=== PATIENT | female | born 1945 | race Caucasian/White ===

== ENCOUNTER → 2016-08-26 | Outpatient (CLI) | payer MEDICARE, OTHER ==
[~2016-08-26] MED LIST: ALN10T; ASP325T PO; AZIT250T PO; BREO INH; CEFD300C3; CYAN100053 IM; LEVO500T2 PO; METO25TA2 PO; MONT10TA24; MTP25TSR PO; PRD10T; PRD20T PO; RT-ALBUINH IH; levaquin PO
--- OUTSIDE RECORDS SUMMARY | 2016-08-26 08:14 | XMS REPORT | Continuity of Care Document ---
Author Author [facility] Organization [facility] Address Unknown Phone Unavailable Care Team Providers Care Planer Tailer Name Role Phone LATANYA ALFREDO MD PCP Insurance Providers Payer Name Policy Number Subscriber Name Relationship [employer] [id number] Yun Booker 18 Self / Same As Patient Enter Insurance Name [id number] Yun Booker 18 Self / Same As Patient Advance Directives Directive Response Recorded Date/Time Advance Directives No 06/29/16 9:05am Health Care Power of Laser Cutter Yes 06/29/16 9:05am Organ Donor No 06/29/16 9:05am Resuscitation Status Full Code 06/29/16 9:05am Chief Complaint and Reason for Visit Chief Complaint Cough/Cold/Flu Symptoms Reason for Visit fever severe COPD with fibrosis and bullae Problems No problem information available. Medications Current Home Medications Medication Dose Units Route Directions Days/Qty Instructions Start Date Aspirin 325 Mg 325 Mg Oral Bedtime 03/23/12 [Breo] 1 Puff Inhalation Daily as needed for Shortness Of Breath Cyanocobalamin (Vitamin B 12 Injecting) 1,000 Mcg/Ml 1,000 Mg Intramusc Monthly as needed for Weakness 04/11/14 Albuterol Sulfate 18 Gm 18 Gm Inhalation Daily 04/05/15 Azithromycin 250 Mg 250 Mg Oral As Directed 6 TAKE 2 TABLETS TODAY, THEN TAKE 1 TABLET DAILY FOR 4 MORE DAYS 06/29/16 Past Home Medications Medication Directions Ordered Status Alendronate Sodium 10 Mg Tab, 02/04/09 Discontinued Metoprolol Succinate 25 Mg Tab.sr.24h, 1 Each Oral Daily 03/23/12 Discontinued Metoprolol Tartrate 25 Mg Tablet, 12.5 Mg Oral Twice A Day 04/18/14 Discontinued [Levaquin] , 500 Mg Oral Daily 04/18/14 Discontinued Social History Social History Problem Response Recorded Date/Time Alcohol Use Regular Use 04/15/2014 6:26pm Recreational Drug Use No 04/15/2014 6:26pm Recent Foreign Travel No 04/15/2014 6:26pm Recent Infectious Disease Exposure No 04/15/2014 6:26pm Hospitalization with Isolation Denies 06/29/2016 9:05am Sexually Transmitted Disease No 06/29/2016 9:05am HIV/AIDS No 06/29/2016 9:05am Smoking Status Former Smoker 06/29/2016 9:05am Do you dip or chew tobacco? No 04/05/2015 7:51am Type Used Cigarettes 06/29/2016 9:05am Recent Hopitalizations No 06/29/2016 9:05am Sexually Transmitted Disease No 06/29/2016 9:05am Hospitalization with Isolation Denies 06/29/2016 9:05am Query Response Start Date Stop Date Smoking Status Former Smoker 04/05/2014 Hospital Discharge Instructions No hospital discharge instructions. Plan of Care Discharge Date 06/29/16 10:01am Disposition 01 HOME, SELF-CARE Condition at Discharge Stable/Unchanged Instructions/Education Provided Chronic Obstructive Pulmonary Disease (COPD), Including Emphysema Prescriptions See Medication Section Referrals LATANYA ALFREDO MD - Primary Care Physician Functional Status No functional status results. Allergies, Adverse Reactions, Alerts No known allergies. Immunizations No immunization records. Vital Signs Acute Vital Signs Vital Response Date/Time Temperature (Fahrenheit) 100.0 degrees F (97.6 - 99.5) 06/29/2016 10:00am Temperature (Calculated Celsius) 37.37464 degrees C (36.4 - 37.5) 06/29/2016 10:00am Temperature Source Tympanic 06/29/2016 10:00am Pulse Rate (adult) 116 bpm (60 - 90) 06/29/2016 10:00am Respiratory Rate 20 bpm (12 - 24) 06/29/2016 10:00am O2 Sat by Pulse Oximetry 95 % (88 - 100) 06/29/2016 10:00am Blood Pressure 111/71 mm Hg 06/29/2016 10:00am Blood Pressure Mean 84 mm Hg 06/29/2016 9:05am Height (Feet) 5 feet 06/29/2016 9:05am Height (Inches) 2.00 inches 06/29/2016 9:05am Height (Calculated Centimeters) 157.467593 cm 06/29/2016 9:05am Weight (Pounds) 98 pounds 06/29/2016 9:05am Weight (Ounces) 3.0 oz 06/29/2016 9:05am Weight (Calculated Grams) 65453.101 gm 06/29/2016 9:05am Weight (Calculated Kilograms) 44.905605 kilograms 06/29/2016 9:05am Calculated BMI 17.92 06/29/2016 9:05am Capillary Refill Capillary Refill Less Than 3 Seconds 06/29/2016 9:05am Results Laboratory Results Test Name Result Units Flags Reference Collection Date/Time Result Date/ Time Comments White Blood Count 13.2 10^3/uL H 4.3-11.0 06/29/2016 9:16am 06/29/2016 9: 33am Red Blood Count 4.18 10^6/uL L 4.35-5.85 06/29/2016 9:16am 06/29/2016 9: 33am Hemoglobin 13.9 G/DL 11.5-16.0 06/29/2016 9:16am 06/29/2016 9:33am Hematocrit 42 % 35-52 06/29/2016 9:16am 06/29/2016 9:33am Mean Corpuscular Volume 101 FL H 80-99 06/29/2016 9:16am 06/29/2016 9: 33am Mean Corpuscular Hemoglobin 33 PG 25-34 06/29/2016 9:16am 06/29/2016 9: 33am Mean Corpuscular Hemoglobin Concent 33 G/DL 32-36 06/29/2016 9:16am 07/2016 9:33am Red Cell Distribution Width 13.1 % 10.0-14.5 06/29/2016 9:16am 2015 9:33am Platelet Count 229 10^3/uL 130-400 06/29/2016 9:16am 06/29/2016 9:33am Mean Platelet Volume 9.5 FL 7.4-10.4 06/29/2016 9:16am 06/29/2016 9: 33am Neutrophils (%) (Auto) 89 % H 42-75 06/29/2016 9:16am 06/29/2016 9:33am Lymphocytes (%) (Auto) 3 % L 12-44 06/29/2016 9:16am 06/29/2016 9:33am Monocytes (%) (Auto) 8 % 0-12 06/29/2016 9:1606/29/2016 9:33am Eosinophils (%) (Auto) 0 % 0-10 06/29/2016 9:16am 06/29/2016 9:33am Basophils (%) (Auto) 0 % 0-10 06/29/2016 9:1606/29/2016 9:33am Neutrophils # (Auto) 11.7 X 10^3 H 1.8-7.8 06/29/2016 9:16am 06/29/2016 9 :33am Lymphocytes # (Auto) 0.4 X 10^3 L 1.0-4.0 06/29/2016 9:1606/29/2016 9: 33am Monocytes # (Auto) 1.0 X 10^3 0.0-1.0 06/29/2016 9:16am 06/29/2016 9: 33am Eosinophils # (Auto) 0.0 10^3/uL 0.0-0.3 06/29/2016 9:16am 06/29/2016 9 :33am Basophils # (Auto) 0.0 10^3/uL 0.0-0.1 06/29/2016 9:16am 06/29/2016 9: 33am Neutrophils % (Manual) 85 % 06/29/2016 9:16am 06/29/2016 9:43am Band Neutrophils 7 % 06/29/2016 9:16am 06/29/2016 9:43am Lymphocytes % (Manual) 8 % 06/29/2016 9:16am 06/29/2016 9:43am Monocytes % (Manual) 3 % 06/29/2016 9:16am 06/29/2016 9:43am Blood Morphology Comment NORMAL 06/29/2016 9:16am 06/29/2016 9: 43am Toxic Granulation 1+ 06/29/2016 9:16am 06/29/2016 9:43am Procedures No known history of procedures. Encounters Encounter Location Arrival/Admit Date Discharge/Depart Date Attending Provider Departed Emergency Room [facility] 06/29/16 8:52am 06/29 10:01am FRAN CH MD Recent Diagnosis
--- NOTE | 2016-08-26 09:02 | Diagnostic Imaging Report ---
PROCEDURE: CT chest without contrast. TECHNIQUE: Multiple contiguous axial images were obtained through the chest without the use of intravenous contrast. INDICATION: COPD, tobacco use and lung infection. Comparison is made study of 07/08/2016. FINDINGS: Post therapeutic changes are again noted in the left hemithorax with significant volume loss in left upper lobe resulting in upward retraction of the left pulmonary hilum. Pleural parenchymal densities in the left apex are similar to the previous study. Diffuse centrilobular emphysematous background is again seen throughout both lungs. Right apical pleural parenchymal densities are stable as well. Overall, there has been a decrease in the interstitial densities throughout the lungs. Subpleural nodular foci in the lung bases have not changed. There is no evidence of new mass or infiltrate. Unenhanced images reveal no evidence of pathologic thoracic adenopathy. Upper abdominal sections are also stable without evidence of new abnormality. IMPRESSION: Extensive COPD with overall improvement in probable interstitial edema and/or pneumonitis noted on previous study. Pleural-parenchymal densities have not significantly changed and likely represents scarring. No acute abnormality is identified on the noncontrasted study. Dictated by: Dictated on workstation # [id number]
== END ==
LOC: RAD 08:11
PROVIDERS: ATTEND Nurse Practitioner Family
DX: J44.1 Chronic obstructive pulmonary disease with (acute) exacerbation (principal); J44.0 Chronic obstructive pulmonary disease with (acute) lower respiratory infection; J18.9 Pneumonia, unspecified organism; R91.1 Solitary pulmonary nodule; R09.02 Hypoxemia; Z72.0 Tobacco use
CPT/HCPCS: 71250

== ENCOUNTER → 2017-04-11 | Outpatient (CLI) | payer MEDICARE, OTHER ==
--- NOTE | 2017-04-11 18:04 | Diagnostic Imaging Report ---
INDICATION: Shortness of breath. TECHNIQUE: PA and lateral chest obtained at 1136 a.m. and is compared to 07/08/2016. FINDINGS: There is extensive chronic left apical pleural thickening and fibrotic change. There is extensive parenchymal scarring and fibrotic change in the right apex. There is superior retraction of the shad on both sides. There are chronic-appearing increased interstitial markings bilaterally. The alveolar consolidation in the right lower lobe seen on the previous study of 07/08/2016 has resolved. There is no new infiltrate or pleural fluid. IMPRESSION: Extensive chronic changes in the upper lung field on both sides as well as extensive chronic left apical pleural thickening. The alveolar infiltrate in the right lung base has resolved compared to the prior study. There are chronic interstitial changes. There is no definite new finding. Dictated by: Dictated on workstation # [id number]
== END ==
LOC: RAD 11:07
PROVIDERS: ATTEND Nurse Practitioner Family
DX: J84.9 Interstitial pulmonary disease, unspecified (principal); R09.02 Hypoxemia; Z72.0 Tobacco use
CPT/HCPCS: 71020

== ENCOUNTER → 2017-08-04 | Outpatient (CLI) | payer MEDICARE, OTHER ==
--- NOTE | 2017-08-04 11:03 | Diagnostic Imaging Report ---
PROCEDURE: CT chest without contrast. TECHNIQUE: Multiple contiguous axial images were obtained through the chest without the use of intravenous contrast. INDICATION: Shortness of breath. COPD. COMPARISON: 08/26/2016. FINDINGS: There is extensive pleural parenchymal scarring seen in the left upper lobe and to lesser extent similar finding in the right upper lobe with traction bronchiectasis seen. There is background emphysema and pulmonary hyperinflation. Significant elevation of the shad particularly on the left side secondary to the fibrotic changes and loss of volume as mentioned above is seen. Some of these changes are postsurgical. There is no new consolidation, mass, or suspicious nodule developed from the previous exam. Stable small nodular densities are likely related to scarring in the left lung base. There is no pleural effusion. No pericardial effusion. The heart size is normal. The thoracic aorta is normal in caliber. The upper mediastinum is shifted to the left side. There is a nonspecific borderline-sized infracarinal lymph node measuring 1 cm in size. It appears slightly more prominent compared to the previous study. There is also a precarinal lymph node measuring 1 cm. No axillary lymphadenopathy is seen. Sections in the upper abdomen demonstrate no definite abnormality. There is mild right scoliotic curvature of the spine. IMPRESSION: Advanced emphysema. Postsurgical changes in the left upper lobe and significant pleuroparenchymal scarring in the lung apices more on the left side. No acute process. Dictated by: Dictated on workstation # [id number]
== END ==
LOC: RAD 09:15
PROVIDERS: ATTEND Nurse Practitioner Family
DX: J43.9 Emphysema, unspecified (principal); Z98.890 Other specified postprocedural states
CPT/HCPCS: 71250

== ENCOUNTER → 2018-06-24 | Outpatient (CLI) | payer MEDICARE, OTHER ==
[~2018-06-24] MED LIST changes: +IOHEXOL 350 MG/ML 100 ML (OMNIPAQUE 350) VIAL IV ONE; +NS 250 ML (IVPB) BAG IV ONE; +RECEIVED CONTRAST (Hold Metformin) IV SCH
[2018-06-24 12:42] LABS: BUN/CREATININE RATIO 14; CALCIUM 9.7 MG/DL (8.5-10.1); CARBON DIOXIDE 23 MMOL/L (21-32); CHLORIDE 102 MMOL/L (98-107); CREATININE SERUM 0.71 MG/DL (0.60-1.30); GFR ESTIMATED > 60; GLUCOSE 106 MG/DL (70-105); POTASSIUM 3.9 MMOL/L (3.6-5.0); SODIUM 137 MMOL/L (135-145)
--- NOTE | 2018-06-24 13:46 | Diagnostic Imaging Report ---
PROCEDURE: CT angiography of the head with and without contrast. TECHNIQUE: Noncontrast CT of the head was obtained. Subsequently, after intravenous administration of contrast, thin section axial CT angiography of the head was performed. Source data was reformatted into multiple MIP reformats. Delayed postcontrast acquisition of the head was also acquired. INDICATION: Headache for three days at the top of the head. FINDINGS: Precontrast head CT does show the ventricles and sulci to be somewhat prominent consistent with the patient's age. There is moderate periventricular hypodensity noted consistent with chronic microvascular ischemia. There is some low density on the left side in the region of the internal capsule. 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 No sulcal effacement, midline shift or hemorrhage is detected. Delayed postcontrast imaging to the brain is without abnormal enhancing lesion. CT angiographic portion of the study does show some calcified plaque in the carotid siphons bilaterally. The anterior and middle cerebral arteries are widely patent. No stenosis or thromboemboli are seen. No definite aneurysm is seen. There is a hypoplastic right posterior cerebral with patent PCOM, a normal variant. IMPRESSION: 1. Unremarkable CT angiogram of the brain. No aneurysm, stenosis or thromboemboli are seen. 2. Changes of chronic microvascular ischemia. 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 No acute feature is seen. Dictated by: Dictated on workstation # [id number]
== END ==
LOC: RAD 11:53
PROVIDERS: ATTEND Family Medicine
DX: I67.82 Cerebral ischemia (principal)
CPT/HCPCS: 36415; 70496; 80048

== ENCOUNTER → 2018-07-28 | Outpatient (CLI) | payer MEDICARE, OTHER ==
[~2018-07-28] MED LIST changes: -IOHEXOL 350 MG/ML 100 ML (OMNIPAQUE 350) VIAL IV ONE; -NS 250 ML (IVPB) BAG IV ONE; -RECEIVED CONTRAST (Hold Metformin) IV SCH
--- NOTE | 2018-07-28 10:32 | Diagnostic Imaging Report ---
PROCEDURE: CT chest without contrast. TECHNIQUE: Multiple contiguous axial images were obtained through the chest without the use of intravenous contrast. INDICATION: COPD FINDINGS: The previous CT of the chest exam performed 08/04/2017 noted advanced emphysematous changes involving both lungs as well as postsurgical changes in the left upper lobe. Those findings are again evident on this study and do not seem to have changed significantly. There is no sign of failure, pneumonia or pleural effusion to indicate an acute abnormality. There is no parenchymal lung mass noted to indicate neoplastic disease. The heart is stable in size. There are no coronary artery calcifications noted. The aorta is not aneurysmally dilated. There is no obvious mediastinal or hilar adenopathy. The thyroid gland is generally unremarkable. There is no obvious breast mass. The sections through the upper abdomen fail to show any sign of an acute abnormality. The bone windows are unremarkable for a fracture or for a destructive lesion. IMPRESSION: The severe chronic pulmonary disease and the postsurgical changes involving the left upper lung seen on the previous study are again evident and stable in appearance. There is no acute cardiopulmonary abnormality noted. Dictated by: Dictated on workstation # [id number]
== END ==
LOC: RAD 09:30
PROVIDERS: ATTEND Nurse Practitioner Family
DX: J44.1 Chronic obstructive pulmonary disease with (acute) exacerbation (principal); Z72.0 Tobacco use; Z98.890 Other specified postprocedural states
CPT/HCPCS: 71250

== ENCOUNTER 2018-09-16 08:10 | Emergency (ER) | payer MEDICARE, OTHER ==
[~2018-09-16] VITALS: Ht 157.5 cm; Wt 48.5 kg
[2018-09-16] MEDS ORDERED: fentaNYL INJECTION 100 MCG/2 ML AMP IVP ONE (08:30)
[2018-09-16 08:45] LABS: BASOPHILS # (AUTO) 0.1 10^3/uL (0.0-0.1); BASOPHILS % (AUTO) 1 % (0-10); EOSINOPHILS # (AUTO) 0.2 10^3/uL (0.0-0.3); EOSINOPHILS % (AUTO) 3 % (0-10); HEMATOCRIT 48 % (35-52); HEMOGLOBIN 15.9 G/DL (11.5-16.0); LYMPHOCYTES % (AUTO) 17 % (12-44); MEAN CORPUSCULAR HEMOGLOBIN 34 PG (25-34); MEAN CORPUSCULAR HGB CONC 33 G/DL (32-36); MEAN CORPUSCULAR VOLUME 102 FL (80-99); MEAN PLATELET VOLUME 9.5 FL (7.4-10.4); MONOCYTES # (AUTO) 0.6 X 10^3 (0.0-1.0); MONOCYTES % (AUTO) 10 % (0-12); NEUTROPHILS # (AUTO) 4.2 X 10^3 (1.8-7.8); NEUTROPHILS % (AUTO) 70 % (42-75); PLATELET COUNT 260 10^3/uL (130-400); RED CELL DISTRIBUTION WIDTH 14.1 % (10.0-14.5)
--- NOTE | 2018-09-16 09:05 | Diagnostic Imaging Report ---
INDICATION: Shortness of breath. COMPARISON: Comparison is made with the prior examination dated 04/16/2018. FINDINGS: There is unchanged scarring of the lung apices bilaterally left greater than right. Heart size is normal. There is some venous congestion. There is no pleural effusion. There is no pneumothorax. IMPRESSION: Unchanged biapical pleural thickening or scarring left greater than right with some moderate central pulmonary venous congestion. Dictated by: Dictated on workstation # [id number]
[2018-09-16 09:07] LABS: ALANINE AMINOTRANSFERASE 41 U/L (0-55); ALBUMIN 4.4 GM/DL (3.2-4.5); ALKALINE PHOSPHATASE 102 U/L (40-136); BILIRUBIN,TOTAL 0.7 MG/DL (0.1-1.0); BUN/CREATININE RATIO 11; CALCIUM 9.7 MG/DL (8.5-10.1); CARBON DIOXIDE 22 MMOL/L (21-32); CHLORIDE 102 MMOL/L (98-107); CREATININE SERUM 0.75 MG/DL (0.60-1.30); GFR ESTIMATED > 60; GLUCOSE 96 MG/DL (70-105); POTASSIUM 4.3 MMOL/L (3.6-5.0); SODIUM 138 MMOL/L (135-145)
--- NOTE | 2018-09-16 09:18 | NUR ---
PT STATES SHE FEELS MUCH BETTER. OXYGEN REMOVED FOR TRIAL.
--- OUTSIDE RECORDS SUMMARY | 2018-09-16 09:21 | XMS REPORT ---
Author Author YANET RUSSO [facility] Address [address] [place] [address] Care Team Providers Care Business Services Administrator Name Role Phone RUSSOJACQUIYANET Unavailable PROBLEMS Type Condition ICD9-CM Code [id number] Code Onset Dates Condition Status SNOMED Code Problem PPV23 (PNEUMOVAX) DX V03.82 Active 65856091 Problem Need for prophylactic vaccination and inoculation, Influenza V04.81 Active 641096904 ALLERGIES No Known Allergies ENCOUNTERS Encounter Location Date Diagnosis [facility] IN [facility] [address] [address] Jul, Vaginal itching L29.8 and Vaginal yeast infection B37.3 [facility] [address] [address] Jun, Dysuria R30.0 and Acute cystitis with hematuria N30.01 [place] [address] [address] Apr, Encounter for immunization Z23 [facility] [address] [address] Feb, Dysuria R30.0 and Acute cystitis with hematuria N30.01 [facility] [address] [address] May, Encounter for immunization Z23 [facility] [address] [address] May, [facility] [address] [address] May, [place] [address] [address] Oct, [facility] [address] [facility] [id number] [address] Oct, [facility] [address] [facility] [id number] [address] May, [facility] [address] [facility] [id number] [address] May, IMMUNIZATIONS No Known Immunizations SOCIAL HISTORY Never Assessed REASON FOR VISIT slight dysuria since last noc. pt also complaining of upper body pain...says she gets like this when she gets a UTI. [email or web address] PLAN OF CARE Activity Details Follow Up prn Reason: VITAL SIGNS Height 62 in 2017-06-23 Weight 103.4 lbs 2017-06-23 Temperature 97.8 degrees Fahrenheit 2017-06-23 Heart Rate 88 bpm 2017-06-23 Respiratory Rate 20 2017-06-23 BMI 18.91 kg/m2 2017-06-23 Blood pressure systolic 112 mmHg 2017-06-23 Blood pressure diastolic 70 mmHg 2017-06-23 MEDICATIONS Medication Instructions Dosage Frequency Start Date End Date Duration Status Breo Ellipta 100-25 MCG/INH Inhalation Once a day 1 puff 24h Active Macrobid 100 MG Orally every 12 hrs 1 capsule with food 12h Jun, Jun, 7 day(s) Active Incruse Ellipta 62.5 MCG/INH Inhalation Once a day 1 puff 24h Active RESULTS No Results PROCEDURES Procedure Date Ordered Result Body Site URINALYSIS, AUTO, W/O SCOPE Jun 23, 2017 LAB NOT BILLED BY [facility] Jun 23, 2017 [facility] VISIT ESTABLISHED PATIENT Jun 23, 2017 INSTRUCTIONS MEDICATIONS ADMINISTERED No Known Medications MEDICAL (GENERAL) HISTORY Type Description Date Surgical History Bowel Surgical History Lobectomy
--- OUTSIDE RECORDS SUMMARY | 2018-09-16 09:21 | XMS REPORT ---
Author Author CHRISTINA BUSBY [facility] Address [address] [place] [address] Care Team Providers Care Sales Support Advisor Name Role Phone QI CHRISTINA Unavailable PROBLEMS Type Condition ICD9-CM Code CFU28-ZA Code Onset Dates Condition Status SNOMED Code Problem PPV23 (PNEUMOVAX) DX V03.82 Active 71971699 Problem Need for prophylactic vaccination and inoculation, Influenza V04.81 Active 452361215 ALLERGIES No Known Allergies ENCOUNTERS Encounter Location Date Diagnosis [facility] IN [facility] [address] [address] Jul, Vaginal itching L29.8 and Vaginal yeast infection B37.3 [facility] [address] [address] Jun, Dysuria R30.0 and Acute cystitis with hematuria N30.01 [facility] [address] [address] Apr, Encounter for immunization Z23 [facility] [address] [address] Feb, Dysuria R30.0 and Acute cystitis with hematuria N30.01 [facility] [address] [address] May, Encounter for immunization Z23 [facility] [address] [address] May, [facility] [address] [address] May, [facility] [address] [address] Oct, [facility] [address] [facility] [id number] [place] [address] Oct, [facility] [address] [facility] [id number] [address] May, [facility] [address] [facility] [id number] [place] [address] May, IMMUNIZATIONS No Known Immunizations SOCIAL HISTORY Never Assessed REASON FOR VISIT dysuria 2 weeks ago...that has quit. pt thinks she had a yeast infection...bought OTC treatment for 1 day at [facility]...thinks it got better. reports some vaginal itching that comes and goes now. [email or web address] PLAN OF CARE Activity Details Follow Up prn Reason: VITAL SIGNS Height 62 in 2017-08-02 Weight 109.2 lbs 2017-08-02 Temperature 97.7 degrees Fahrenheit 2017-08-02 Heart Rate 82 bpm 2017-08-02 Respiratory Rate 20 2017-08-02 BMI 19.97 kg/m2 2017-08-02 Blood pressure systolic 124 mmHg 2017-08-02 Blood pressure diastolic 78 mmHg 2017-08-02 MEDICATIONS Medication Instructions Dosage Frequency Start Date End Date Duration Status Baclofen 10 MG Orally Three times a day 1 tablet with food or milk 8h Not-Taking Incruse Ellipta 62.5 MCG/INH Inhalation Once a day 1 puff 24h Active Breo Ellipta 100-25 MCG/INH Inhalation Once a day 1 puff 24h Active Fluconazole 150 MG Orally Once a day 1 tablet 24h Jul, Jul, 03 days Active RESULTS Name Result Date Reference Range UA LONG DIP (IN HOUSE) 2017-08-02 Lot # [id number] Exp date 2017 11 30 Clarity clear Color yellow Odor none GLU negative MANUEL negative KET negative SG 1.020 BLO trace pH 6.0 Protein negative URO 0.2 NIT negative THOMAS negative Lot # [id number] Exp date November 2017 PROCEDURES Procedure Date Ordered Result Body Site URINALYSIS, AUTO, W/O SCOPE Aug 02, 2017 [facility] VISIT ESTABLISHED PATIENT Aug 02, 2017 INSTRUCTIONS MEDICATIONS ADMINISTERED No Known Medications MEDICAL (GENERAL) HISTORY Type Description Date Surgical History Bowel Surgical History Lobectomy
--- OUTSIDE RECORDS SUMMARY | 2018-09-16 09:21 | XMS REPORT ---
Author Author SUSMHA MCRAE [facility] Address [address] [place] [address] Care Team Providers Care Post Anesthesia Nurse Name Role Phone SUSHMA MCRAE Unavailable PROBLEMS Type Condition ICD9-CM Code [id number] Code Onset Dates Condition Status SNOMED Code Problem PPV23 (PNEUMOVAX) DX V03.82 Active 35717750 Problem Need for prophylactic vaccination and inoculation, Influenza V04.81 Active [id number] ALLERGIES No Information ENCOUNTERS Encounter Location Date Diagnosis [place] [address] [address] May, Encounter for immunization Z23 [facility] [address] [address] Jul, Vaginal itching L29.8 and Vaginal yeast infection B37.3 [facility] [address] [place] [address] Jun, Dysuria R30.0 and Acute cystitis with hematuria N30.01 [place] [address] [address] Apr, Encounter for immunization Z23 [facility] [address] [address] Feb, Dysuria R30.0 and Acute cystitis with hematuria N30.01 [place] [address] [address] May, Encounter for immunization Z23 [facility] [address] [address] May, [facility] [address] [address] May, [facility] [address] [facility] [id number], [place] [address] Oct, [facility] [address] [facility] [id number], [place] [address] Oct, [facility] [address] [facility] [id number], [place] [address] May, [facility] [address] [facility] [id number], [place] [address] May, IMMUNIZATIONS Vaccine Route Administration Date Status FLUZONE HIGH DOSE 0.5ML (65 & UP) 2017 IM Intramuscular May 22, 2018 Administered SOCIAL HISTORY Never Assessed REASON FOR VISIT Flu shot PLAN OF CARE VITAL SIGNS MEDICATIONS Unknown Medications RESULTS No Results PROCEDURES Procedure Date Ordered Result Body Site FLUZONE HIGH DOSE (65 & UP) 2017May 22, 2018 ADMN FLU VAC NO FEE SCHED SAME DAY May 22, 2018 SINGLE IMMUNIZATION ADMIN May 22, 2018 INSTRUCTIONS MEDICATIONS ADMINISTERED No Known Medications MEDICAL (GENERAL) HISTORY Type Description Date Surgical History Bowel Surgical History Lobectomy
--- OUTSIDE RECORDS SUMMARY | 2018-09-16 09:21 | XMS REPORT ---
Author Author YANET RUSSO [facility] Address [address] [place] [address] Care Team Providers Care Ship Captain Name Role Phone RUSSOJACQUIYANET Unavailable PROBLEMS Type Condition ICD9-CM Code XIH61-MB Code Onset Dates Condition Status SNOMED Code Problem PPV23 (PNEUMOVAX) DX V03.82 Active 36806326 Problem Need for prophylactic vaccination and inoculation, Influenza V04.81 Active [id number] ALLERGIES No Known Allergies ENCOUNTERS Encounter Location Date Diagnosis [facility] [address] [address] Jul, Vaginal itching L29.8 and Vaginal yeast infection B37.3 [facility] [address] [address] Jun, Dysuria R30.0 and Acute cystitis with hematuria N30.01 [place] [address] [address] Apr, Encounter for immunization Z23 [facility] [address] [address] Feb, Dysuria R30.0 and Acute cystitis with hematuria N30.01 [facility] [address] [address] May, Encounter for immunization Z23 [facility] [address] [address] May, [facility] [address] [address] May, [place] [address] [address] Oct, [facility] [address] [facility] [id number], [place] [address] Oct, [facility] [address] [facility] [id number], [place] [address] May, [facility] [address] [facility] [id number], [place] [address] May, IMMUNIZATIONS No Known Immunizations SOCIAL HISTORY Never Assessed REASON FOR VISIT lower back pain getting better every day JStrasserRN PLAN OF CARE Activity Details Follow Up prn Reason: VITAL SIGNS Height 62 in 2017-03-11 Weight 102.2 lbs 2017-03-11 Temperature 97.5 degrees Fahrenheit 2017-03-11 Heart Rate 92 bpm 2017-03-11 Respiratory Rate 20 2017-03-11 BMI 18.69 kg/m2 2017-03-11 Blood pressure systolic 110 mmHg 2017-03-11 Blood pressure diastolic 72 mmHg 2017-03-11 MEDICATIONS Medication Instructions Dosage Frequency Start Date End Date Duration Status Breo Ellipta 100-25 MCG/INH Inhalation Once a day 1 puff 24h Active Bactrim DS 800-160 MG Orally Three times a Week 1 tablet Feb, Feb, 3 days Active Baclofen 10 MG Orally Three times a day 1 tablet with food or milk 8h Active Incruse Ellipta 62.5 MCG/INH Inhalation Once a day 1 puff 24h Active RESULTS Name Result Date Reference Range UA LONG DIP (IN HOUSE) 2017-03-11 Lot # [id number] Exp date 2018-01-15 Clarity cloudy Color yellow Odor none GLU negative MANUEL negative KET negative SG 1.025 BLO trace-intact pH 7.0 Protein negative URO 0.2 NIT negative THOMAS 1+ Lot # [id number] Exp date 2017-09 CULTURE, URINE 2017-03-11 Urine Culture, Routine Final report Result 1 Escherichia coli Antimicrobial Susceptibility PROCEDURES Procedure Date Ordered Result Body Site URINALYSIS, AUTO, W/O SCOPE March 11, 2017 LAB NOT BILLED BY [facility] March 11, 2017 [facility] VISIT ESTABLISHED PATIENT March 11, 2017 INSTRUCTIONS MEDICATIONS ADMINISTERED No Known Medications MEDICAL (GENERAL) HISTORY Type Description Date Surgical History Bowel Surgical History Lobectomy
--- OUTSIDE RECORDS SUMMARY | 2018-09-16 09:22 | XMS REPORT ---
Author SUSHMA Dang [facility] eClinicalWorks Address Unknown Phone Unavailable Care Team Providers Care Certified Respiratory Therapist Name Role Phone SUSHMA MCRAE CP Unavailable Allergies No Known Allergies Problems Problem Type Condition Code Onset Dates Condition Status Problem PPV23 (PNEUMOVAX) DX V03.82 Active Assessment Encounter for immunization Z23 Active Problem Need for prophylactic vaccination and inoculation, Influenza V04.81 Active Medications No Known Medications Procedures Procedure Coding System Code Date TDAP (BOOSTRIX) CPT-4 38957 May 29, 2015 SINGLE IMMUNIZATION ADMIN CPT-4 78261 May 29, 2015 FLUZONE TRIV HIGH DOSE (65 & UP)-SANOFI PASTEUR-2014 CPT-4 19448 May 29, 2015 IMMUNIZATION ADMIN, EACH ADD (please include units) CPT-4 28165 May 29, 2015 Results No Known Results Immunizations Vaccine Administration Date FLUZONE TRIV HIGH DOSE (65 & UP)-SANOFI PASTEUR-2014May 29, 2015 TDAP (BOOSTRIX) May 29, 2015 Summary Purpose eClinicalWorks Submission
--- OUTSIDE RECORDS SUMMARY | 2018-09-16 09:23 | XMS REPORT | Continuity of Care Document ---
Author Author [facility] Address Unknown Phone Unavailable Allergies Active Description Code Type Severity Reaction Onset Reported/Identified Relationship to Patient Clinical Status Yes No Known Drug Allergies [id number] Drug Allergy Unknown N/A 04/05/2015 Medications There is no data. Problems Date Dx Coded Attending Type Code Diagnosis Diagnosed By 12/28/2012 EKTA MARLOW Ot 427.69 PREMATURE BEATS NEC 12/28/2012 EKTA MARLOW Ot 785.1 PALPITATIONS 05/27/2013 MCRAE DOSUSHMA V04.81 FLU SHOT 05/27/2013 MCRAE DOSUSHMA V04.81 FLU SHOT 11/04/2013 SUSHMA MCRAE DO V03.82 PPV23 (PNEUMOVAX) DX 04/15/2014 LATANYA BRITTON MD R Ot 305.1 TOBACCO USE DISORDER 04/15/2014 LATANYA BRITTON MD R Ot 458.9 HYPOTENSION NOS 04/15/2014 LATANYA BRITTON MD R Ot 486 PNEUMONIA, ORGANISM NOS 04/15/2014 LATANYA BRITTON MD R Ot 491.21 OBSTR CHRONIC BRONCHITIS, W (ACUTE) EXAC 04/15/2014 LATANYA BRITTON MD R Ot 560.9 INTESTINAL OBSTRUCT NOS 04/15/2014 LATANYA BRITTON MD R Ot 785.1 PALPITATIONS 04/15/2014 LATANYA BRITTON MD R Ot 786.59 CHEST PAIN NEC 04/15/2014 LATANYA BRITTON MD R Ot 787.20 DYSPHAGIA, UNSPECIFIED 04/15/2014 LATANYA BRITTON MD R Ot V45.76 ACQRD ABSENCE OF LUNG 04/18/2014 LATANYA BRITTON MD R Ot 486 PNEUMONIA, ORGANISM NOS 04/18/2014 LATANYA BRITTON MD R Ot 491.22 OBSTRUCTIVE CHRONIC BRONCHITIS WITH ACUT 04/18/2014 LATANYA BRITTON MD R Ot 785.1 PALPITATIONS 08/01/2014 EBENEZER BEVERLY DO Ot 305.1 TOBACCO USE DISORDER 08/01/2014 EBENEZER BEVERLY DO Ot 496 CHR AIRWAY OBSTRUCT NEC 08/01/2014 EBENEZER BEVERLY DO Ot 786.09 RESPIRATORY ABNORM NEC 08/16/2014 EBENEZER BEVERLY DO Ot 496 08/16/2014 EBENEZER BEVERLY DO Ot 786.09 08/17/2014 Ot 529.8 08/17/2014 Ot 530.3 08/17/2014 Ot 787.20 08/17/2014 Ot 793.1 08/17/2014 Ot 786.6 08/17/2014 Ot V81.5 08/17/2014 Ot 272.4 08/17/2014 Ot 401.9 08/17/2014 Ot 424.0 08/17/2014 Ot 427.31 08/17/2014 Ot 786.05 08/17/2014 Ot 427.69 08/17/2014 Ot 785.1 08/17/2014 Ot 786.09 08/17/2014 Ot 427.69 08/17/2014 Ot 785.1 08/17/2014 Ot 786.09 08/17/2014 Ot 786.05 08/17/2014 Ot 427.69 08/17/2014 Ot 785.1 08/17/2014 EBENEZER BEVERLY DO Ot 305.1 08/17/2014 EBENEZER BEVERLY DO Ot 486 08/17/2014 EBENEZER BEVERLY DO Ot 786.09 08/17/2014 EBENEZER BEVERLY DO Ot 496 08/17/2014 EBENEZER BEVERLY DO Ot 786.09 08/17/2014 EBENEZER BEVERLY DO Ot 305.1 08/17/2014 EBENEZER BEVERLY DO Ot 496 08/17/2014 EBENEZER BEVERLY DO Ot 786.09 08/17/2014 EBENEZER BEVERLY DO Ot 496 08/17/2014 EBENEZER BEVERLY DO Ot 786.09 08/25/2014 EBENEZER BEVERYL DO Ot 496 08/25/2014 EBENEZER BEVERLY DO Ot 786.09 09/06/2014 EBENEZER BEVERLY DO Ot 496 09/06/2014 EBENEZER BEVERLY DO Ot 786.09 09/15/2014 EBENEZER BEVERLY DO Ot 496 09/15/2014 EBENEZER BEVERLY DO Ot 786.09 03/31/2015 BRANDEE MARQUEZ MD Ot V72.84 04/05/2015 Ot 427.69 04/05/2015 Ot 785.1 04/05/2015 EBENEZER BEVERLY DO Ot 305.1 04/05/2015 EBENEZER BEVERLY DO Ot 496 04/05/2015 SIRIAEBENEZER CAGLE DO Ot 786.09 04/05/2015 BRANDEE MARQUEZ MD Ot 211.4 BENIGN NEOPL RECTUM/ANUS 04/05/2015 BRANDEE MARQUEZ MD Ot 455.0 INT HEMORRHOID W/O COMPL 04/05/2015 BRANDEE MARQUEZ MD Ot 455.3 EXT HEMORRHOID W/O COMPL 04/05/2015 BRANDEE MARQUEZ MD Ot 562.10 DIVERTICULOSIS COLON (W/O MENT OF HEMORR 04/05/2015 BRANDEE MARQUEZ MD Ot V76.51 SCREEN MAL NEOP-COLON 08/15/2015 SOBIA BANGURA APRN Ot J44.1 06/29/2016 FRAN CH MD Ot J43.9 EMPHYSEMA, UNSPECIFIED 06/29/2016 FRAN CH MD Ot R05 COUGH 06/29/2016 FRAN CH MD Ot R50.9 FEVER, UNSPECIFIED 06/29/2016 FRAN CH MD Ot Z79.82 SNF (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 06/29/2016 FRAN CH MD Ot Z87.891 PERSONAL HISTORY OF NICOTINE DEPENDENCE 07/08/2016 SAUNDRA MEHTA Ot J18.9 PNEUMONIA, UNSPECIFIED ORGANISM 07/08/2016 SAUNDRA MEHTA Ot J44.9 CHRONIC OBSTRUCTIVE PULMONARY DISEASE, U 07/08/2016 SAUNDRA MEHTA Ot Z79.82 SNF (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 07/08/2016 SAUNDRA MEHTA Ot Z79.899 OTHER CRUISE CONSULTANT (CURRENT) DRUG THERAPY 07/08/2016 SAUNDRA MEHTA Ot Z87.891 PERSONAL HISTORY OF NICOTINE DEPENDENCE 07/09/2016 SAUNDRA MEHTA Ot J18.9 PNEUMONIA, UNSPECIFIED ORGANISM 07/09/2016 SAUNDRA MEHTA Ot J44.9 CHRONIC OBSTRUCTIVE PULMONARY DISEASE, U 07/09/2016 SAUNDRA MEHTA Ot Z79.82 SNF (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 07/09/2016 SAUNDRA MEHTA Ot Z79.899 OTHER CRUISE CONSULTANT (CURRENT) DRUG THERAPY 07/09/2016 SAUNDRA MEHTA Ot Z87.891 PERSONAL HISTORY OF NICOTINE DEPENDENCE 08/30/2016 SOBIA BANGURA APRN Ot J18.9 PNEUMONIA, UNSPECIFIED ORGANISM 08/30/2016 SOBIA BANGURA APRN Ot J44.0 CHRONIC OBSTRUCTIVE PULMON DISEASE W ACU 08/30/2016 SOBIA BANGURA APRN Ot J44.1 CHRONIC OBSTRUCTIVE PULMONARY DISEASE W 08/30/2016 SOBIA BANGURA APRN Ot R09.02 HYPOXEMIA 08/30/2016 SOBIA BANGURA CONTRACT NEGOTIATION MANAGER Ot R91.1 SOLITARY PULMONARY NODULE 08/30/2016 SOBIA BANGURA APRN Ot Z72.0 TOBACCO USE 09/27/2016 SOBIA BANGURA APRN Ot J18.9 PNEUMONIA, UNSPECIFIED ORGANISM 09/27/2016 SOBIA BANGURA APRN Ot J44.0 CHRONIC OBSTRUCTIVE PULMON DISEASE W ACU 09/27/2016 SOBIA BANGURA APRN Ot J44.1 CHRONIC OBSTRUCTIVE PULMONARY DISEASE W 09/27/2016 SOBIA BANGURA CONTRACT NEGOTIATION MANAGER Ot R09.02 HYPOXEMIA 09/27/2016 SOBIA BANGURA CONTRACT NEGOTIATION MANAGER Ot R91.1 SOLITARY PULMONARY NODULE 09/27/2016 SOBIA BANGURA CONTRACT NEGOTIATION MANAGER Ot Z72.0 TOBACCO USE 05/02/2017 SOBIA BANGURA APRN Ot J84.9 INTERSTITIAL PULMONARY DISEASE, UNSPECIF 05/02/2017 SOBIA BANGURA CONTRACT NEGOTIATION MANAGER Ot R09.02 HYPOXEMIA 05/02/2017 SOBIA BANGURA CONTRACT NEGOTIATION MANAGER Ot Z72.0 TOBACCO USE 07/31/2017 Ot 427.69 PREMATURE BEATS NEC 07/31/2017 Ot 785.1 PALPITATIONS 07/31/2017 Ot 786.09 RESPIRATORY ABNORM NEC 07/31/2017 Ot 427.69 PREMATURE BEATS NEC 07/31/2017 Ot 785.1 PALPITATIONS 07/31/2017 Ot 786.09 RESPIRATORY ABNORM NEC 07/31/2017 Ot 786.05 SHORTNESS OF BREATH 07/31/2017 Ot 427.69 PREMATURE BEATS NEC 07/31/2017 Ot 785.1 PALPITATIONS 07/31/2017 EBENEZER BEVERLY DO Ot 305.1 TOBACCO USE DISORDER 07/31/2017 EBENEZER BEVERLY DO Ot 486 PNEUMONIA, ORGANISM NOS 07/31/2017 EBENEZER BEVERLY DO Ot 786.09 RESPIRATORY ABNORM NEC 07/31/2017 EBENEZER BEVERLY DO Ot 496 CHR AIRWAY OBSTRUCT NEC 07/31/2017 EBENEZER BEVERLY DO Ot 786.09 RESPIRATORY ABNORM NEC 07/31/2017 EBENEZER BEVERLY DO Ot 305.1 TOBACCO USE DISORDER 07/31/2017 EBENEZER BEVERLY DO Ot 496 CHR AIRWAY OBSTRUCT NEC 07/31/2017 EBENEZER BEVERLY DO Ot 786.09 RESPIRATORY ABNORM NEC 07/31/2017 EBENEZER BEVERLY DO Ot 496 CHR AIRWAY OBSTRUCT NEC 07/31/2017 EBENEZER BEVERLY DO Ot 786.09 RESPIRATORY ABNORM NEC 07/31/2017 JIMMY TORRES, BRANDEE Ot V72.84 EXAM PRE-OPERATIVE NOS 07/31/2017 SOBIA BANGURA APRN Ot J44.1 CHRONIC OBSTRUCTIVE PULMONARY DISEASE W 07/31/2017 SOBIA BANGURA APRN Ot J18.9 PNEUMONIA, UNSPECIFIED ORGANISM 07/31/2017 SOBIA BANGURA APRN Ot J44.0 CHRONIC OBSTRUCTIVE PULMON DISEASE W ACU 07/31/2017 SOBIA BANGURA APRN Ot J44.1 CHRONIC OBSTRUCTIVE PULMONARY DISEASE W 07/31/2017 SOBIA BANGURA CONTRACT NEGOTIATION MANAGER Ot R09.02 HYPOXEMIA 07/31/2017 SBOIA BANGURA APRN Ot R91.1 SOLITARY PULMONARY NODULE 07/31/2017 SOBIA BANGURA APRN Ot Z72.0 TOBACCO USE 07/31/2017 SOBIA BANGURA CONTRACT NEGOTIATION MANAGER Ot J84.9 INTERSTITIAL PULMONARY DISEASE, UNSPECIF 07/31/2017 SOBIA BANGURA APRN Ot R09.02 HYPOXEMIA 07/31/2017 SOBIA BANGURA CONTRACT NEGOTIATION MANAGER Ot Z72.0 TOBACCO USE 08/27/2017 SOBIA BANGURA CONTRACT NEGOTIATION MANAGER Ot J43.9 EMPHYSEMA, UNSPECIFIED 08/27/2017 SOBIA BANGURA CONTRACT NEGOTIATION MANAGER Ot Z98.890 OTHER SPECIFIED POSTPROCEDURAL STATES 04/03/2018 Ot 427.69 PREMATURE BEATS NEC 04/03/2018 Ot 785.1 PALPITATIONS 04/03/2018 EBENEZER BEVERLY DO Ot 305.1 TOBACCO USE DISORDER 04/03/2018 EBENEZER BEVERLY DO Ot 486 PNEUMONIA, ORGANISM NOS 04/03/2018 EBENEZER BEVERLY DO Ot 786.09 RESPIRATORY ABNORM NEC 04/03/2018 EBENEZER BEVERLY DO Ot 496 CHR AIRWAY OBSTRUCT NEC 04/03/2018 EBENEZER BEVERLY DO Ot 786.09 RESPIRATORY ABNORM NEC 04/03/2018 EBENEZER BEVERLY DO Ot 305.1 TOBACCO USE DISORDER 04/03/2018 EBENEZER BEVERLY DO Ot 496 CHR AIRWAY OBSTRUCT NEC 04/03/2018 EBENEZER BEVERLY DO Ot 786.09 RESPIRATORY ABNORM NEC 04/03/2018 EBENEZER BEVERLY DO Ot 496 CHR AIRWAY OBSTRUCT NEC 04/03/2018 EBENEZER BEVERLY DO Ot 786.09 RESPIRATORY ABNORM NEC 04/03/2018 JIMMY TORRES, BRANDEE Ot V72.84 EXAM PRE-OPERATIVE NOS 04/03/2018 SOBIA BANGURA APRN Ot J44.1 CHRONIC OBSTRUCTIVE PULMONARY DISEASE W 04/03/2018 SOBIA BANGURA APRN Ot J18.9 PNEUMONIA, UNSPECIFIED ORGANISM 04/03/2018 SOBIA BANGURA APRN Ot J44.0 CHRONIC OBSTRUCTIVE PULMON DISEASE W ACU 04/03/2018 SOBIA BANGURA APRN Ot J44.1 CHRONIC OBSTRUCTIVE PULMONARY DISEASE W 04/03/2018 SOBIA BANGURA APRN Ot R09.02 HYPOXEMIA 04/03/2018 SOBIA BANGURA CONTRACT NEGOTIATION MANAGER Ot R91.1 SOLITARY PULMONARY NODULE 04/03/2018 SOBIA BANGURA CONTRACT NEGOTIATION MANAGER Ot Z72.0 TOBACCO USE 04/03/2018 SOBIA BANGURA APRN Ot J84.9 INTERSTITIAL PULMONARY DISEASE, UNSPECIF 04/03/2018 SOBIA BANGURA APRN Ot R09.02 HYPOXEMIA 04/03/2018 SOBIA BANGURA CONTRACT NEGOTIATION MANAGER Ot Z72.0 TOBACCO USE 04/03/2018 SOBIA BANGURA CONTRACT NEGOTIATION MANAGER Ot J43.9 EMPHYSEMA, UNSPECIFIED 04/03/2018 SOBIA BANGURA CONTRACT NEGOTIATION MANAGER Ot Z98.890 OTHER SPECIFIED POSTPROCEDURAL STATES 04/16/2018 Ot 427.69 PREMATURE BEATS NEC 04/16/2018 Ot 785.1 PALPITATIONS 04/16/2018 EBENEZER BEVERLY DO Ot 305.1 TOBACCO USE DISORDER 04/16/2018 EBENEZER BEVERLY DO Ot 486 PNEUMONIA, ORGANISM NOS 04/16/2018 EBENEZER BEVERLY DO Ot 786.09 RESPIRATORY ABNORM NEC 04/16/2018 EBENEZER BEVERLY DO Ot 496 CHR AIRWAY OBSTRUCT NEC 04/16/2018 EBENEZER BEVERLY DO Ot 786.09 RESPIRATORY ABNORM NEC 04/16/2018 SIRIA ALEJANDRO EBENEZER M Ot 305.1 TOBACCO USE DISORDER 04/16/2018 EBENEZER BEVERLY DO Ot 496 CHR AIRWAY OBSTRUCT NEC 04/16/2018 EBENEZER BEVERLY DO Ot 786.09 RESPIRATORY ABNORM NEC 04/16/2018 EBENEZER BEVERLY DO Ot 496 CHR AIRWAY OBSTRUCT NEC 04/16/2018 EBENEZER BEVERLY DO Ot 786.09 RESPIRATORY ABNORM NEC 04/16/2018 JIMMY TORRES, BRANDEE Ot V72.84 EXAM PRE-OPERATIVE NOS 04/16/2018 SOBIA BANGURA APRN Ot J44.1 CHRONIC OBSTRUCTIVE PULMONARY DISEASE W 04/16/2018 SOBIA BANGURA APRN Ot J18.9 PNEUMONIA, UNSPECIFIED ORGANISM 04/16/2018 SOBIA BANGURA APRN Ot J44.0 CHRONIC OBSTRUCTIVE PULMON DISEASE W ACU 04/16/2018 SOBIA BANGURA APRN Ot J44.1 CHRONIC OBSTRUCTIVE PULMONARY DISEASE W 04/16/2018 SOBIA ABNGURA CONTRACT NEGOTIATION MANAGER Ot R09.02 HYPOXEMIA 04/16/2018 SOBIA BANGURA CONTRACT NEGOTIATION MANAGER Ot R91.1 SOLITARY PULMONARY NODULE 04/16/2018 SOBIA BANGURA CONTRACT NEGOTIATION MANAGER Ot Z72.0 TOBACCO USE 04/16/2018 SOBIA BANGURA CONTRACT NEGOTIATION MANAGER Ot J84.9 INTERSTITIAL PULMONARY DISEASE, UNSPECIF 04/16/2018 SOBIA BANGURA CONTRACT NEGOTIATION MANAGER Ot R09.02 HYPOXEMIA 04/16/2018 SOBIA BANGURA CONTRACT NEGOTIATION MANAGER Ot Z72.0 TOBACCO USE 04/16/2018 SOBIA BANGURA CONTRACT NEGOTIATION MANAGER Ot J43.9 EMPHYSEMA, UNSPECIFIED 04/16/2018 SOBIA BANGURA CONTRACT NEGOTIATION MANAGER Ot Z98.890 OTHER SPECIFIED POSTPROCEDURAL STATES 04/17/2018 SOBIA BANGURA CONTRACT NEGOTIATION MANAGER Ot J18.9 PNEUMONIA, UNSPECIFIED ORGANISM 04/17/2018 SOBIA BANGURA CONTRACT NEGOTIATION MANAGER Ot J44.9 CHRONIC OBSTRUCTIVE PULMONARY DISEASE, U 05/06/2018 SOBIA BANGURA CONTRACT NEGOTIATION MANAGER Ot J18.9 PNEUMONIA, UNSPECIFIED ORGANISM 05/06/2018 SOBIA BANGURA CONTRACT NEGOTIATION MANAGER Ot J44.9 CHRONIC OBSTRUCTIVE PULMONARY DISEASE, U 06/29/2018 JONNATHAN TORRES, SLICK Perez Ot I67.82 CEREBRAL ISCHEMIA 07/30/2018 SOBIA BANGURA CONTRACT NEGOTIATION MANAGER Ot J44.1 CHRONIC OBSTRUCTIVE PULMONARY DISEASE W 07/30/2018 SOBIA BANGURA CONTRACT NEGOTIATION MANAGER Ot Z72.0 TOBACCO USE 07/30/2018 SOBIA BANGURA CONTRACT NEGOTIATION MANAGER Ot Z98.890 OTHER SPECIFIED POSTPROCEDURAL STATES 08/20/2018 SOBIA BANGURA CONTRACT NEGOTIATION MANAGER Ot J44.1 CHRONIC OBSTRUCTIVE PULMONARY DISEASE W 08/20/2018 SOBIA BANGURA CONTRACT NEGOTIATION MANAGER Ot Z72.0 TOBACCO USE 08/20/2018 SOBIA BANGURA CONTRACT NEGOTIATION MANAGER Ot Z98.890 OTHER SPECIFIED POSTPROCEDURAL STATES Procedures Code Description Performed By Performed On G0008 FLU ADMINISTRATION ( MEDICARE ONLY) 05/27/2013 Results Test Result Range Complete blood count (CBC) with automated white blood cell (WBC) differential - 06/29/16 09:16 Blood leukocytes automated count (number/volume) 13.2 10*3/uL 4.3-11.0 Blood erythrocytes automated count (number/volume) 4.18 10*6/uL 4.35-5.85 Venous blood hemoglobin measurement (mass/volume) 13.9 g/dL 11.5-16.0 Blood hematocrit (volume fraction) 42 % 35-52 Automated erythrocyte mean corpuscular volume 101 [foz_us] 80-99 Automated erythrocyte mean corpuscular hemoglobin (mass per erythrocyte) 33 pg 25-34 Automated erythrocyte mean corpuscular hemoglobin concentration measurement ( mass/volume) 33 g/dL 32-36 Automated erythrocyte distribution width ratio 13.1 % 10.0-14.5 Automated blood platelet count (count/volume) 229 10*3/uL 130-400 Automated blood platelet mean volume measurement 9.5 [foz_us] 7.4-10.4 Automated blood neutrophils/100 leukocytes 89 % 42-75 Automated blood lymphocytes/100 leukocytes 3 % 12-44 Blood monocytes/100 leukocytes 8 % 0-12 Automated blood eosinophils/100 leukocytes 0 % 0-10 Automated blood basophils/100 leukocytes 0 % 0-10 Blood neutrophils automated count (number/volume) 11.7 10*3 1.8-7.8 Blood lymphocytes automated count (number/volume) 0.4 10*3 1.0-4.0 Blood monocytes automated count (number/volume) 1.0 10*3 0.0-1.0 Automated eosinophil count 0.0 10*3/uL 0.0-0.3 Automated blood basophil count (count/volume) 0.0 10*3/uL 0.0-0.1 Blood manual differential performed detection - 06/29/16 09:16 Blood monocytes/100 leukocytes 3 % NRG Manual blood segmented neutrophils/100 leukocytes 85 % NRG Blood band neutrophils/100 leukocytes 7 % NRG Manual blood lymphocytes/100 leukocytes 8 % NRG Blood erythrocyte morphology finding identification NORMAL NRG Blood toxic granules detection by light microscopy 1+ NRG Complete blood count (CBC) with automated white blood cell (WBC) differential - 07/08/16 18:05 Blood leukocytes automated count (number/volume) 12.4 10*3/uL 4.3-11.0 Blood erythrocytes automated count (number/volume) 4.17 10*6/uL 4.35-5.85 Venous blood hemoglobin measurement (mass/volume) 13.5 g/dL 11.5-16.0 Blood hematocrit (volume fraction) 42 % 35-52 Automated erythrocyte mean corpuscular volume 100 [foz_us] 80-99 Automated erythrocyte mean corpuscular hemoglobin (mass per erythrocyte) 32 pg 25-34 Automated erythrocyte mean corpuscular hemoglobin concentration measurement ( mass/volume) 33 g/dL 32-36 Automated erythrocyte distribution width ratio 13.2 % 10.0-14.5 Automated blood platelet count (count/volume) 428 10*3/uL 130-400 Automated blood platelet mean volume measurement 8.9 [foz_us] 7.4-10.4 Automated blood neutrophils/100 leukocytes 87 % 42-75 Automated blood lymphocytes/100 leukocytes 8 % 12-44 Blood monocytes/100 leukocytes 5 % 0-12 Automated blood eosinophils/100 leukocytes 0 % 0-10 Automated blood basophils/100 leukocytes 0 % 0-10 Blood neutrophils automated count (number/volume) 10.8 10*3 1.8-7.8 Blood lymphocytes automated count (number/volume) 0.9 10*3 1.0-4.0 Blood monocytes automated count (number/volume) 0.6 10*3 0.0-1.0 Automated eosinophil count 0.0 10*3/uL 0.0-0.3 Automated blood basophil count (count/volume) 0.0 10*3/uL 0.0-0.1 Blood manual differential performed detection - 07/08/16 18:05 Blood monocytes/100 leukocytes 2 % NRG Manual blood segmented neutrophils/100 leukocytes 86 % NRG Blood band neutrophils/100 leukocytes 0 % NRG Manual blood lymphocytes/100 leukocytes 11 % NRG Manual eosinophils/100 leukocytes in nose 0 % NRG Manual blood basophils/100 leukocytes 0 % NRG Blood erythrocyte morphology finding identification NORMAL NRG Manual blood metamyelocytes/100 leukocytes 1 % NRG Fibrin D-dimer FEU measurement in platelet poor plasma (mass/volume) - 18:05 Fibrin D-dimer FEU measurement in platelet poor plasma (mass/volume) 0.90 ug/mL 0.00-0.49 Comprehensive metabolic panel - 07/08/16 18:05 Serum or plasma sodium measurement (moles/volume) 135 mmol/L 135-145 Serum or plasma potassium measurement (moles/volume) 4.3 mmol/L 3.6-5.0 Serum or plasma chloride measurement (moles/volume) 97 mmol/L 98-107 Carbon dioxide 29 mmol/L 21-32 Serum or plasma anion gap determination (moles/volume) 9 mmol/L 5-14 Serum or plasma urea nitrogen measurement (mass/volume) 7 mg/dL 7-18 Serum or plasma creatinine measurement (mass/volume) 0.56 mg/dL 0.60-1.30 Serum or plasma urea nitrogen/creatinine mass ratio 13 NRG Serum or plasma creatinine measurement with calculation of estimated glomerular filtration rate > NRG Serum or plasma glucose measurement (mass/volume) 112 mg/dL 70-105 Serum or plasma calcium measurement (mass/volume) 9.2 mg/dL 8.5-10.1 Serum or plasma total bilirubin measurement (mass/volume) 0.3 mg/dL 0.1-1.0 Serum or plasma alkaline phosphatase measurement (enzymatic activity/volume) 115 U/L 40-136 Serum or plasma aspartate aminotransferase measurement (enzymatic activity/ volume) 25 U/L 5-34 Serum or plasma alanine aminotransferase measurement (enzymatic activity/volume ) 54 U/L 0-55 Serum or plasma protein measurement (mass/volume) 6.9 g/dL 6.4-8.2 Serum or plasma albumin measurement (mass/volume) 3.6 g/dL 3.2-4.5 Serum or plasma troponin i.cardiac measurement (mass/volume) - 07/08/16 18:05 Serum or plasma troponin i.cardiac measurement (mass/volume) < ng/ mL <0.30 Complete urinalysis with reflex to culture - 07/08/16 19:32 Urine color determination YELLOW NRG Urine clarity determination SLIGHTLY CLOUDY NRG Urine pH measurement by test strip 8 5-9 Specific gravity of urine by test strip 1.015 1.016- 1.022 Urine protein assay by test strip, semi-quantitative NEGATIVE NEGATIVE Urine glucose detection by automated test strip NEGATIVE NEGATIVE Erythrocytes detection in urine sediment by light microscopy NEGATIVE NEGATIVE Urine ketones detection by automated test strip NEGATIVE NEGATIVE Urine nitrite detection by test strip NEGATIVE NEGATIVE Urine total bilirubin detection by test strip NEGATIVE NEGATIVE Urine urobilinogen measurement by automated test strip (mass/volume) NORMAL NORMAL Urine leukocyte esterase detection by dipstick 1+ NEGATIVE Automated urine sediment erythrocyte count by microscopy (number/high power field) NONE NRG Automated urine sediment leukocyte count by microscopy (number/high power field ) [HPF] NRG Bacteria detection in urine sediment by light microscopy NONE NRG Crystals detection in urine sediment by light microscopy NONE NRG Casts detection in urine sediment by light microscopy NONE NRG Mucus detection in urine sediment by light microscopy NEGATIVE NRG Complete urinalysis with reflex to culture NO NRG Urine Culture, Routine - 03/11/17 08:49 Urine Culture, Routine Note CULTURE, URINE - 06/23/17 09:26 CULTURE, URINE, ROUTINE SEE NOTE NRG Whole blood basic metabolic panel - 06/24/18 12:00 Serum or plasma sodium measurement (moles/volume) 137 mmol/L 135-145 Serum or plasma potassium measurement (moles/volume) 3.9 mmol/L 3.6-5.0 Serum or plasma chloride measurement (moles/volume) 102 mmol/L 98-107 Carbon dioxide 23 mmol/L 21-32 Serum or plasma anion gap determination (moles/volume) 12 mmol/L 5-14 Serum or plasma urea nitrogen measurement (mass/volume) 10 mg/dL 7-18 Serum or plasma creatinine measurement (mass/volume) 0.71 mg/dL 0.60-1.30 Serum or plasma urea nitrogen/creatinine mass ratio 14 NRG Serum or plasma creatinine measurement with calculation of estimated glomerular filtration rate > NRG Serum or plasma glucose measurement (mass/volume) 106 mg/dL 70-105 Serum or plasma calcium measurement (mass/volume) 9.7 mg/dL 8.5-10.1 Encounters ACCT No. Visit Date/Time Discharge Status Pt. Type Provider Facility Loc./Unit Complaint [id number] 11/04/2013 09:06:00 11/04/2013 23:59:59 CLS Outpatient SUSHMA MCRAE DO [id number] 05/27/2013 10:35:00 05/27/2013 23:59:59 [place] [id number] 05/22/2018 08:00:00 05/22/2018 23:59:59 CLS Outpatient Carol Britton [facility] [id number] 06/23/2017 08:45:00 Document Registration [id number] 07/31/2018 14:58:00 07/31/2018 23:59:59 CLS Preadmit SOBIA BANGURA APRN [facility] RAD TOBACCO USE,COPD [id number] 07/28/2018 09:30:00 07/28/2018 23:59:59 CLS Outpatient SOBIA BANGURA CONTRACT NEGOTIATION MANAGER [facility] RAD J43.9 COPD [id number] 06/24/2018 11:53:00 06/24/2018 23:59:59 CLS Outpatient SLICK DE SANTIAGO MD [facility] RAD PERSISTENT HEADACHE, LEFT SIDE [id number] 04/16/2018 08:50:00 04/16/2018 23:59:59 CLS Outpatient SOBIA BANGURA APRN [facility] RAD J18.9,J43.9 [id number] 08/04/2017 09:15:00 08/04/2017 23:59:59 CLS Outpatient SOBIA BANGURA APRN [facility] RAD J43.9 COPD [id number] 04/11/2017 11:07:00 04/11/2017 23:59:59 CLS Outpatient SOBIA BANGURA APRN [facility] RAD J18.9,Z72.0,R09.02 [id number] 08/26/2016 08:11:00 08/26/2016 23:59:59 CLS Outpatient SOBIA BANGURA APRN [facility] RAD COPD,TOBACCO USE, LUNG NODULE SEEN ON IMAGING STUD [id number] 07/08/2016 17:16:00 07/08/2016 21:14:00 DIS Emergency SAUNDRA MEHTA [facility] ER SOA/LUNG INFECTION [id number] 06/29/2016 08:52:00 06/29/2016 10:01:00 DIS Emergency FRAN CH MD [facility] ER FEVER/GENERALIZED ILLNESS [id number] 07/19/2015 09:41:00 07/19/2015 23:59:59 CLS Outpatient SOBIA BANGURA APRN [facility] RAD COPD [id number] 04/05/2015 07:21:00 04/05/2015 12:10:00 DIS Outpatient BRANDEE MARQUEZ MD [facility] SDC SCREENING [id number] 03/30/2015 08:33:00 03/30/2015 23:59:59 CLS Outpatient BRANDEE MARQUEZ MD [facility] PREOP SCREENING [id number] 08/15/2014 08:07:00 08/15/2014 23:59:59 CLS Outpatient EBENEZER BEVERLY DO [facility] RAD COPD,DYSPNEA [id number] 08/08/2014 08:29:00 08/08/2014 23:59:59 CLS Outpatient EBENEZER BEVERLY DO [facility] LAB COPD [id number] 08/02/2014 08:00:00 08/02/2014 23:59:59 CLS Preadmit EBENEZER BEVERLY DO [facility] PULM COPD,PALPITATIONS, DYSPNEA [id number] 07/19/2014 08:30:00 08/01/2014 00:01:00 DIS Outpatient EBENEZER BEVERLY DO [facility] PULM COPD,PALPITATIONS, DYSPNEA [id number] 05/04/2014 07:06:00 05/04/2014 23:59:59 CLS Outpatient EBENEZER BEVERLY DO [facility] RT COPD,DYSPNEA [id number] 04/15/2014 12:26:00 04/18/2014 11:03:00 DIS Inpatient LATANYA BRITTON MD [facility] 4TH SWB,LOW BLOOD PRESSURE [id number] 04/10/2014 15:53:00 04/15/2014 12:10:00 DIS Inpatient LATANYA BRITTON MD [facility] CSD L SIDED PLEURITIC CHEST PAIN [id number] 09/29/2012 08:54:00 12/28/2012 00:01:00 DIS Outpatient EKTA MARLOW [facility] CARD PALPITATIONS,PVC'S [id number] 08/17/2014 14:13:00 Document Registration [id number] 12/29/2012 09:00:00 Document Registration [id number] 09/28/2012 10:15:00 Document Registration [id number] 03/24/2012 10:55:00 Document Registration [id number] 03/23/2012 13:48:00 Document Registration [id number] 10/14/2011 07:32:00 Document Registration [id number] 07/04/2009 08:18:00 Document Registration [id number] 06/15/2009 08:43:00 Document Registration [id number] 03/22/2009 08:09:00 Document Registration [email or web address] 04/05/2015 07:24:02 ACT Document Registration [id number] 03/13/2017 15:07:00 Document Registration
--- NOTE | 2018-09-16 09:37 | NUR ---
IN TALKING TO PT AT THIS TIME.
--- NOTE | 2018-09-16 09:47 | ED Respiratory ---
General Chief Complaint: Respiratory Problems Stated Complaint: R LUNG PAIN;SOB Nursing Triage Note: AMBULATED TO ROOM 06. STATES AT 0715 THIS AM SHE HAD A SUDDEN PAIN IN HER RIGHT LUNG AND BECAME SOA. HX OF PNEUMOTHORAX. Source: patient Exam Limitations: no limitations History of Present Illness Date Seen by Provider: Sep 16, 2018 Time Seen by Provider: 08:19 Initial Comments This 73-year-old woman presents to the emergency room with right-sided chest pain that occurred suddenly while she was working. She reports it hurts to breathe. She denies any injury. She has had spontaneous pneumothorax in the past and is concerned that this also may be a spontaneous pneumothorax. She was hypoxic with an oxygen saturation of 88 percent on room air due to splinting. She denies lower extremity pain or swelling. She has had no recent procedures or travel. Allergies and Home Medications Allergies Coded Allergies: No Known Drug Allergies (Verified , 04/05/15) Home Medications Albuterol Sulfate 18 Gm Hfa.aer.ad, 18 GM IH DAILY, (Reported) Aspirin 325 Mg Tab, 325 MG PO HS, (Reported) Cyanocobalamin 1,000 Mcg/Ml Vial, 1,000 MG IM MONTHLY PRN for WEAKNESS, ( Reported) Levofloxacin 500 Mg Tablet, 500 MG PO DAILY Prescribed by: SAUNDRA CARTER on 07/08/162107 Prednisone 20 Mg Tab, 60 MG PO UD 3 tab po daily x7d, then 2 tabs po daily x7d, then 1 tab daily x7d Prescribed by: SAUNDRA CARTER on 07/08/162102 [Breo] , 1 PUFF INH DAILY PRN for SHORTNESS OF BREATH, (Reported) Patient Home Medication List Home Medication List Reviewed: Yes Review of Systems Review of Systems Constitutional: no symptoms reported EENTM: see HPI Respiratory: see HPI Cardiovascular: no symptoms reported Gastrointestinal: no symptoms reported Genitourinary: no symptoms reported Musculoskeletal: see HPI Skin: no symptoms reported Psychiatric/Neurological: No Symptoms Reported Hematologic/Lymphatic: No Symptoms Reported Immunological/Allergic: no symptoms reported Past Ialkzoi-Bieavj-Lilahw Hx Past Med/Social Hx: Reviewed Nursing Past Med/Soc Hx Patient Social History Alcohol Beverage of Choice: Wine Type Used: Cigarettes Recent Foreign Travel: No Contact w/Someone Who Travel: No Recent Infectious Disease Expo: No Recent Hopitalizations: No Immunizations Up To Date Date of Pneumonia Vaccine: Nov 03, 2014 Date of Influenza Vaccine: May 18, 2016 Past Medical History Surgeries: Yes Lobectomy Respiratory: Yes (COPD, PNEUMOTHORAX) COPD, Emphysema Cardiac: Yes Neurological: No Reproductive Disorders: No Sexually Transmitted Disease: No HIV/AIDS: No Genitourinary: No Gastrointestinal: No Musculoskeletal: No Endocrine: No Hearing Impairment: Denies Cancer: No Psychosocial: No Integumentary: No Blood Disorders: No Adverse Reaction/Blood Tranf: No Family Medical History Reviewed Nursing Family Hx Cardiovascular disease 19 MOTHER G8 SISTER Completed stroke 19 MOTHER Parkinson's disease 19 FATHER No Pertinent Family Hx Physical Exam Vital Signs - First Documented 09/16/18 08:10 Temp 96.3 Pulse 94 Resp 20 B/P (MAP) 173/92 (119) Pulse Ox 89 O2 Delivery Room Air Capillary Refill : Less Than 3 Seconds Height: 5'2.00" Weight: 107lbs. 3.0oz. 48.261139st; 17.92 BMI Method:Stated General Appearance: WD/WN, mild distress HEENT: PERRL/EOMI, normal ENT inspection Neck: normal inspection Respiratory: chest non-tender, lungs clear, normal breath sounds, no respiratory distress, no accessory muscle use Cardiovascular: regular rate, rhythm, no edema, no murmur Gastrointestinal: normal bowel sounds, non tender, soft Extremities: non-tender, normal inspection, no pedal edema, no calf tenderness , other (negative Leilani) Neurologic/Psychiatric: stave jointer II-XII nml as tested, no motor/sensory deficits, alert, normal mood/affect, oriented x 3 Skin: normal color, warm/dry Progress/Results/Core Measures Suspected Sepsis Recent Fever Within 48 Hours: No Infection Criteria Present: Suspected New Infection New/Unexplained Altered Menta: No Sepsis Screen: Possible Sepsis Risk SIRS Temperature:96.3 Pulse: 94 Respiratory Rate: 20 Laboratory Tests 09/16/18 08:22: White Blood Count 6.0 Blood Pressure 173 /92 Mean: 119 Laboratory Tests 09/16/18 08:22: Creatinine 0.75, Platelet Count 260, Total Bilirubin 0.7 Results/Orders Lab Results Laboratory Tests Test 09/16/18 08:22 Range/Units White Blood Count 6.0 4.3-11.0 10^3/uL Red Blood Count 4.74 4.35-5.85 10^6/uL Hemoglobin 15.9 11.5-16.0 G/DL Hematocrit 48 35-52 % Mean Corpuscular Volume 102 H 80-99 FL Mean Corpuscular Hemoglobin 34 25-34 PG Mean Corpuscular Hemoglobin Concent 33 32-36 G/DL Red Cell Distribution Width 14.1 10.0-14.5 % Platelet Count 260 130-400 10^3/uL Mean Platelet Volume 9.5 7.4-10.4 FL Neutrophils (%) (Auto) 70 42-75 % Lymphocytes (%) (Auto) 17 12-44 % Monocytes (%) (Auto) 10 0-12 % Eosinophils (%) (Auto) 3 0-10 % Basophils (%) (Auto) 1 0-10 % Neutrophils # (Auto) 4.2 1.8-7.8 X 10^3 Lymphocytes # (Auto) 1.0 1.0-4.0 X 10^3 Monocytes # (Auto) 0.6 0.0-1.0 X 10^3 Eosinophils # (Auto) 0.2 0.0-0.3 10^3/uL Basophils # (Auto) 0.1 0.0-0.1 10^3/uL D-Dimer 0.41 0.00-0.49 UG/ML Sodium Level 138 135-145 MMOL/L Potassium Level 4.3 3.6-5.0 MMOL/L Chloride Level 102 98-107 MMOL/L Carbon Dioxide Level 22 21-32 MMOL/L Anion Gap 14 5-14 MMOL/L Blood Urea Nitrogen 8 7-18 MG/DL Creatinine 0.75 0.60-1.30 MG/DL Estimat Glomerular Filtration Rate > 60 BUN/Creatinine Ratio 11 Glucose Level 96 70-105 MG/DL Calcium Level 9.7 8.5-10.1 MG/DL Corrected Calcium 9.4 8.5-10.1 MG/DL Total Bilirubin 0.7 0.1-1.0 MG/DL Aspartate Amino Transf (AST/SGOT) 46 H 5-34 U/L Alanine Aminotransferase (ALT/SGPT) 41 0-55 U/L Alkaline Phosphatase 102 40-136 U/L Total Protein 8.0 6.4-8.2 GM/DL Albumin 4.4 3.2-4.5 GM/DL My Orders Orders - TIGRE HIRSCH MD Chest 1 View, Ap/Pa Only (1/30/19 08:16) Cbc With Automated Diff (09/16/18 08:23) Comprehensive Metabolic Panel (09/16/18 08:23) Saline Lock/Iv-Start (09/16/18 08:23) Fentanyl Injection (Sublimaze Injection (09/16/18 08:30) Fibrin Degradation Products (09/16/18 08:55) Medications Given in ED Current Medications Medications Dose Ordered Sig/Mark Route Start Time Stop Time Status Last Admin Dose Admin Fentanyl Citrate 25 mcg ONCE ONCE IVP 09/16/18 08:30 09/16/18 08:31 DC 09/16/18 08:43 25 MCG Vital Signs/I&O 09/16/18 09/16/18 08:10 09:53 Temp 96.3 Pulse 94 72 Resp 20 16 B/P (MAP) 173/92 (119) 158/85 (109) Pulse Ox 89 96 O2 Delivery Room Air Room Air Capillary Refill : Less Than 3 Seconds Blood Pressure Mean: 119 Progress Note : Progress Note Patient's pain completely resolved by the time of discharge. She reports the pain had significantly improved even before she received the fentanyl. Chest x- ray showed no evidence of pneumothorax when compared with prior. D-dimer was negative. Patient was offered CT for further evaluation to rule out a small pneumothorax. She declined and wished to be discharged home. Return precautions were discussed. See discharge instructions. Diagnostic Imaging Diagonstic Imaging: Xray Plain Films/CT/US/NM/MRI: chest Comments Chest x-ray viewed by me and report reviewed. See report below: NAME: RICK BOOKER MED REC#: [id number] PT STATUS: REG ER : 1945 PHYSICIAN: TIGRE HIRSCH MD ADMIT DATE: 09/16/18/ER Signed Date of Exam: 09/16/18 CHEST 1 VIEW, AP/PA ONLY INDICATION: Shortness of breath. COMPARISON: Comparison is made with the prior examination dated 04/16/2018. FINDINGS: There is unchanged scarring of the lung apices bilaterally left greater than right. Heart size is normal. There is some venous congestion. There is no pleural effusion. There is no pneumothorax. IMPRESSION: Unchanged biapical pleural thickening or scarring left greater than right with some moderate central pulmonary venous congestion. Dictated by: Dictated on workstation # [id number] Dict: 09/16/18899 Trans: 09/16/18908 Interpreted by: ORA MACHADO MD Electronically signed by: ORA MACHADO MD 09/16/18908 Departure Impression Primary Impression: Pleuritic chest pain Disposition: HOME, SELF-CARE Condition: Improved Departure-Patient Inst. Decision time for Depature: 09:45 Referrals: SLICK DE SANTIAGO MD (PCP/Family) Primary Care Physician Patient Instructions: Chest Pain That Is Not Caused by the Heart (DC) Add. Discharge Instructions: If your pain returns, you may use ibuprofen up to 200 mg every 6 hours as needed and/or Tylenol (acetaminophen) up to 650 mg every 6 hours. If you develop worsening shortness of breath or pain not controlled by ibuprofen and Tylenol, please return to the emergency room. If you have any other problems or concerns, please return to care. Follow-up with your primary care provider within the next few days. All discharge instructions reviewed with patient and/or family. Voiced understanding. Copy Copies To 1: SLICK DE SANTIAGO MD, JOSHUA T MD Sep 16, 2018 09:47
[2018-09-16 09:53] VITALS: BP 158/85
== END 2018-09-16 09:53 | disposition home or self-care (01) ==
LOC: EDUNIT# 08:10 → ER 08:11
DX: R07.81 Pleurodynia (principal); J43.9 Emphysema, unspecified; Z87.09 Personal history of other diseases of the respiratory system; Z82.49 Family history of ischemic heart disease and other diseases of the circulatory system; Z90.2 Acquired absence of lung [part of]; Z79.51 Long term (current) use of inhaled steroids; Z79.82 Long term (current) use of aspirin; Z79.52 Long term (current) use of systemic steroids
CPT/HCPCS: 36415; 71045; 80053; 85025; 85379

== ENCOUNTER 2018-12-01 07:10 | Emergency (ER) | payer MEDICARE, OTHER ==
[~2018-12-01] VITALS: Ht 157.5 cm; Wt 49.9 kg
--- NOTE | 2018-12-01 07:12 | NUR ---
0712- EMS ARRIVAL. 0714- PT TRANSFERED TO ED COT. RT TAKES OVER VENTILATIONS 0716- 50 MCG FENTANYL AND 2.5 MG VERSED GIVEN VIA [address] GASTON ORDERS 0716- PT CURRENT VS 130/93, 99%, 123 HR, 97.2 0717- PT NECKLACE AND WATCH REOMVED AND PLACED IN BAG. 0718- L SIDED EJ ATTEMPTED PER DR GASTON WITH NO SUCCESS, PLANS FOR CENTRAL LINE AT THIS TIME. 0719- ABG COLLECTED FROM PT R WRIST 0720- 50 MCG FENTANYL AND 2.5 MG VERSED GIVEN VIA 20 G RAC AT THIS TIME PER DR GASTON ORDERS. 0722- 1000 ML NS BOLUS STARTED WIDE OPEN AT THIS TIME. INFUSING INTO 20 G RAC.
[2018-12-01] MEDS ORDERED: MIDAZOLAM 5 MG/5 ML (VERSED) VIAL INJ ONE (07:13)
[2018-12-01] MEDS ORDERED: fentaNYL INJECTION 100 MCG/2 ML AMP INJ ONE (07:13)
[2018-12-01] MEDS ORDERED: ROCURONIUM 10 MG/ML 5 ML SYRINGE IV ONE (07:13)
[2018-12-01] MEDS ORDERED: PROPOFOL DRIP (ICU) 100 ML IV ONE (07:20)
[2018-12-01] MEDS ORDERED: proPOfol 200 MG/20 ML (DIPRIVAN) VIAL IV ONE (07:20)
[2018-12-01] MEDS: NS IV 1000 ML 1,000 ML IV SCH ×2 (07:22→07:31)
--- NOTE | 2018-12-01 07:25 | NUR ---
0724- PT CONNECTED TO MECH VENT AT THIS TIME 0725- 16 FR SAEED STARTED- 10 CC OUTPUT AT THIS TIME. 0725- 50 MG ROCURONIUM GIVEN IN 20 G RAC AT THI TIME. 0729- PT BP CURRENTLY 63/48. DR GASTON AT PT BEDSIDE AT THIS TIME. 20 G LAC STARTED AT THIS TIME. PT ETCO2 38 AT THIS TIME. 0731- TRIPLE LUMEN CENTRAL LINE STARTED AT THIS TIME PER DR GASTON TO PT R NECK. 0739- LEVOPHED STARTED AT (0.1 MCG/KG/MIN) 0745- LEVOPHED INCREASED TO (0.13 MCG/ KG/MIN) 0748- ETT STOUT CHANGED AT THIS TIME PER CROW MOORE. 0750- 18 FR OJPLACED AT THIS TIME 0751- RT CURRENTLY GIVING A DUONEB AT THIS TIME. 0800- PORTABLE CHEST X RAY OBTAINED AT THIS TIME. 0808- NEEDLE DECOMPRESSION TO R CHEST PER DR GASTON AT THIS TIME. 0813- 50 MCG FENTANYL AND 2.5 MG VERSED GIVEN AT THIS TIME 0818- DR BOYLE HERE AT THIS TIME 0819- DRIPRIVAN STARTED AT 20 MCG AT THIS TIME 0820- THORAVENT PLACED BY DR GASTON ASSISTED BY DR BOYLE AT THIS TIME TO R CHEST. 0821- ETT TUBE PULLED BACK 3 CM PER RADIOLOGIST RECOMMENDATION BY CROW MOORE AT THIS TIME. 0838- PT THORAVENT PLACED ON SUCTION WITH ATRIUM AT THIS TIME 0840- ZOSYN DONE INFUSING 0950- 5 MG VERSED GIVEN TO PT RAC 0950- LEVOPHED TURNED DOWN TO 0.1 MCG/KG/MIN. PT CURRENT BP 155/85.
[2018-12-01] MEDS ORDERED: NOREPINEPHRINE 4 MG/4 ML (LEVOPHED) AMP IV ONE (07:28)
[2018-12-01] MEDS ORDERED: NS (IVPB) 250 ML ONE (07:28)
[2018-12-01] MEDS ORDERED: RT-IPRATROPIUM (ATROVENT) 0.5MG/2.5ML AMP IH ONE ×2 (07:37→07:45)
[2018-12-01] MEDS ORDERED: RT-ALBUTEROL SULF 2.5 MG/3 ML PRE-MIX VIAL ONE (07:37)
[2018-12-01] MEDS: NOREPINEPHRINE 4 MG in NS (IVPB) 250 ML IV SCH ×2 (07:39→07:45)
[2018-12-01] MEDS ORDERED: RT-ALBUTEROL SULF 2.5 MG/3 ML PRE-MIX VIAL INH STA (07:41)
[2018-12-01] MEDS ORDERED: PROPOFOL DRIP (ICU) 100 ML IV SCH (07:45)
[2018-12-01] MEDS ORDERED: methylPREDNISolone 125 MG (Solu-MEDROL) VIAL IV STA (07:45)
[2018-12-01 07:52] LABS: ABG BASE EXCESS -5.1 MMOL/L (-2.5-2.5); ABG OXYGEN SATURATION 100 % (94-100); ABG PCO2 52 MMHG (35-45); ABG PO2 241 MMHG (79-93)
[2018-12-01 07:53] VITALS: BP 98/66
[2018-12-01 07:53] LABS: ALLENS TEST YES-POS; VENTILATOR YES
[2018-12-01 07:53] LABS: BASOPHILS % (AUTO) 0 % (0-10); EOSINOPHILS # (AUTO) 0.2 10^3/uL (0.0-0.3); EOSINOPHILS % (AUTO) 4 % (0-10); HEMATOCRIT 41 % (35-52); HEMOGLOBIN 13.9 G/DL (11.5-16.0); LYMPHOCYTES # (AUTO) 1.5 X 10^3 (1.0-4.0); LYMPHOCYTES % (AUTO) 27 % (12-44); MEAN CORPUSCULAR HEMOGLOBIN 35 PG (25-34); MEAN CORPUSCULAR HGB CONC 34 G/DL (32-36); MEAN CORPUSCULAR VOLUME 101 FL (80-99); MEAN PLATELET VOLUME 9.6 FL (7.4-10.4); MONOCYTES # (AUTO) 0.5 X 10^3 (0.0-1.0); MONOCYTES % (AUTO) 9 % (0-12); NEUTROPHILS # (AUTO) 3.2 X 10^3 (1.8-7.8); NEUTROPHILS % (AUTO) 60 % (42-75); PLATELET COUNT 253 10^3/uL (130-400); RED CELL DISTRIBUTION WIDTH 12.4 % (10.0-14.5); WHITE BLOOD COUNT 5.4 10^3/uL (4.3-11.0)
[2018-12-01 07:55] LABS: BILIRUBIN,URINE NEGATIVE (NEGATIVE); CLARITY,URINE SLIGHTLY CLOUDY; COLOR,URINE YELLOW; GLUCOSE, URINE (UA) 4+ (NEGATIVE); KETONES,URINE NEGATIVE (NEGATIVE); LEUKOCYTE ESTERASE ,URINE NEGATIVE (NEGATIVE); NITRITE,URINE NEGATIVE (NEGATIVE); PH,URINE 5 (5-9); PROTEIN,URINE 3+ (NEGATIVE); UROBILINOGEN,URINE NORMAL (NORMAL)
[2018-12-01 07:57] LABS: ABG PH 7.23 (7.37-7.43); INSPIRED O2 100%; PATIENT TEMP 97.2
[2018-12-01 08:06] LABS: AMORPHOUS SEDIMENT,UR RARE AMOR URATES /LPF; BACTERIA,URINE NEGATIVE /HPF; SQUAMOUS EPITHELIAL CELL,UR RARE /HPF; WBC,URINE RARE /HPF
[2018-12-01 08:07] LABS: ALANINE AMINOTRANSFERASE 38 U/L (0-55); ALBUMIN 3.5 GM/DL (3.2-4.5); ALKALINE PHOSPHATASE 70 U/L (40-136); BILIRUBIN,TOTAL 0.4 MG/DL (0.1-1.0); BUN/CREATININE RATIO 11; CALCIUM 8.4 MG/DL (8.5-10.1); CARBON DIOXIDE 20 MMOL/L (21-32); CHLORIDE 104 MMOL/L (98-107); CREATININE SERUM 0.82 MG/DL (0.60-1.30); GFR ESTIMATED > 60; GLUCOSE 316 MG/DL (70-105); INR 1.1 (0.8-1.4); POTASSIUM 4.1 MMOL/L (3.6-5.0); PROTHROMBIN TIME PATIENT 14.4 SEC (12.2-14.7); SODIUM 135 MMOL/L (135-145); TOTAL PROTEIN 5.8 GM/DL (6.4-8.2)
--- NOTE | 2018-12-01 08:31 | Diagnostic Imaging Report ---
CLINICAL INDICATION: Patient with central line and ET tube placement. EXAM: Portable chest x-ray supine view. COMPARISON: Portable chest x-ray upright view dated 09/16/2018. FINDINGS: Of note, patient is slightly rotated on exam. There is interval placement of ET tube with tip at the level of the tristan. This tube should be withdrawn 3 cm. Interval placement of a right IJ central line has been placed in the interim with tip overlying the expected region of the distal superior vena cava. There is interval placement of a feeding tube with the distal portion not completely visualize, but is below the level of the diaphragm. There is a moderate sized right pneumothorax with mild atelectasis of the right lung most pronounced in the right lung apex. There is mild leftward shift of the mediastinal structures. There is superimposed diffuse chronic lung changes with bilateral apical pleural-parenchymal thickening/scarring and consolidation. There is also superior hilar retraction seen. Pulmonary vasculature is obscured. Cardiac silhouettes within normal limits. Bones show no significant abnormality. IMPRESSION: 1: There is interval development of a moderate sized right pneumothorax. There is slight leftward shift of the mediastinal structures. 2: Interval placement of ET tube with tip at the level of the tristan. This tube needs to be withdrawn 3 cm. 3: Interval placement right IJ central line with tip overlying the expected region of the distal superior vena cava. 4: There is mild right lung atelectasis most pronounced in the right lung apex. This is superimposed upon previously seen chronic lung disease including bilateral apical pleural-parenchymal thickening/scarring and superior bilateral hilar retraction. Results of this report, regarding right pneumothorax and ET tube placement, was discussed with Deidre GRIFFIN working with Dr. Josh Corbin on 12/01/2018 at 0819 hours. Dictated by: Dictated on workstation # [id number]
--- NOTE | 2018-12-01 08:58 | Diagnostic Imaging Report ---
Clinical indication: Patient with right pneumothorax post chest tube placement. Exam: Portable chest x-ray supine view. Comparison: Portable chest x-ray supine view dated 12/01/2018. Findings: There is interval placement right chest tube overlying the lateral right upper lung for region. There is interval decreased size of the right pneumothorax with small amount remaining in the lateral right lung apex and right lung base regions. There is improved aeration of the right lung with continued partial consolidation right lung apex which may represent atelectasis. There is interval slight withdrawal of the ET tube with tip now seen roughly 3 cm from the level of the tristan in good position. Right IJ central line again seen with tip overlying the expected region of the distal superior vena cava. Again seen feeding tube with the proximal port overlying the expected region of the gastric fundus. The distal portion of the feeding tube is not completely imaged. There is stable appearance of the chronic lung changes with increased lung markings throughout both lungs and bilateral apical pleural-parenchymal thickening/scarring and patchy consolidation. There is also superior bilateral hilar retraction from chronic changes. Impression: 1: Interval placement of right chest tube with interval decreased size of the right pneumothorax with small right pneumothorax remaining. 2: Interval withdrawal of the ET tube which is now in good position. 3: The remainder of this exam shows no significant interval change compared to the prior study of comparison. Dictated by: Dictated on workstation # [id number]
[2018-12-01] MEDS ORDERED: PIPERACILLIN SODIUM/TAZOBACTAM 4.5 GM in NS (IVPB) 100 ML IV ONE (09:00)
[2018-12-01] MEDS ORDERED: VANCOMYCIN INJECTION 1,000 MG in NS (IVPB) 250 ML IV SCH (09:00)
[2018-12-01 09:05] LABS: ABG OXYGEN SATURATION 99 % (94-100); ABG PCO2 47 MMHG (35-45); ABG PO2 127 MMHG (79-93); ABG TCO2 22.5 MMOL/L (21.0-31.0)
[2018-12-01 09:06] LABS: ALLENS TEST YES-POS; INSPIRED O2 100%; PATIENT TEMP 97.2; VENTILATOR YES
[2018-12-01 09:07] LABS: ABG PH 7.27 (7.37-7.43)
--- NOTE | 2018-12-01 09:15 | ED Respiratory ---
General Chief Complaint: Respiratory Problems Stated Complaint: SOA Nursing Triage Note: PT PRESENTS TO ED VIA EMS FOR RESPIRATORY DISTRESS/FAILURE. PT RECIEVED ONE BREATHING TX IN ROUTE BUT DID NOT RESPOND. PT WAS INTUBATED IN ROUTE PER EMS WITH A 7.0 ETT 24 CM AT THE TEETH AND GIVEN ETOMIDATE AND SUCCS PER EMS. PER EMS PT CALLED FOR SOA THAT STARTED 30 MIN PRIOR TO HER CALLING. UPON EMS ARRIVAL TO SCENE PT WAS IN TRIPOD POSITION. Source: patient, EMS Exam Limitations: no limitations History of Present Illness Date Seen by Provider: Dec 01, 2018 Time Seen by Provider: 07:09 Initial Comments Here by EMS with report of respiratory failure. Apparently called EMS this morning for respiratory distress. On arrival by EMS, patient was in extremis. They did initiate high flow oxygen and ultimately the intubated or in route due to respiratory failure. Elevated with 7.0 ET tube at 24 cm. Arrival with O2 sat of the 100%. Apparently, patient has not been feeling well for the last several days per the family. She is a patient of Dr. Roca with pulmonology. Last admission was several years ago. Usually able to be managed outpatient. Timing/Duration: week, getting worse Severity: severe Prior Episodes/Possible Cause: occasional episodes Modifying Factors: Improves With Oxygen Associated Symptoms: shortness of breath, wheezing Allergies and Home Medications Allergies Coded Allergies: No Known Drug Allergies (Verified , 04/05/15) Home Medications Albuterol Sulfate 18 Gm Hfa.aer.ad, 18 GM IH DAILY, (Reported) Aspirin 325 Mg Tab, 325 MG PO HS, (Reported) Cyanocobalamin 1,000 Mcg/Ml Vial, 1,000 MG IM MONTHLY PRN for WEAKNESS, ( Reported) Levofloxacin 500 Mg Tablet, 500 MG PO DAILY Prescribed by: SAUNDRA CARTER on 07/08/162107 Prednisone 20 Mg Tab, 60 MG PO UD 3 tab po daily x7d, then 2 tabs po daily x7d, then 1 tab daily x7d Prescribed by: SAUNDRA CARTER on 07/08/162102 [Breo] , 1 PUFF INH DAILY PRN for SHORTNESS OF BREATH, (Reported) Patient Home Medication List Home Medication List Reviewed: Yes Review of Systems Review of Systems Constitutional: see HPI; No fever; weakness Respiratory: see HPI, dyspnea on exertion, short of breath, wheezing Unable to complete review of systems due to critical clinical condition. Past Wdbuddw-Qulqwz-Gmgwrp Hx Past Med/Social Hx: Reviewed Nursing Past Med/Soc Hx Patient Social History Alcohol Use: Occasionally Uses Number of Drinks Today: Alcohol Beverage of Choice: Wine Recreational Drug Use: No Smoking Status: Former Smoker Type Used: Cigarettes Former Smoker, Quit: Dec 06, 2013 Recent Foreign Travel: No Contact w/Someone Who Travel: No Recent Infectious Disease Expo: No Recent Hopitalizations: No Immunizations Up To Date Date of Pneumonia Vaccine: Nov 03, 2014 Date of Influenza Vaccine: May 18, 2016 Past Medical History Surgeries: Yes Lobectomy Respiratory: Yes (COPD, PNEUMOTHORAX) COPD, Emphysema Cardiac: Yes Neurological: No Reproductive Disorders: No Sexually Transmitted Disease: No HIV/AIDS: No Genitourinary: No Gastrointestinal: No Musculoskeletal: No Endocrine: No Hearing Impairment: Denies Cancer: No Psychosocial: No Integumentary: No Blood Disorders: No Adverse Reaction/Blood Tranf: No Family Medical History Reviewed Nursing Family Hx Cardiovascular disease 19 MOTHER G8 SISTER Completed stroke 19 MOTHER Parkinson's disease 19 FATHER No Pertinent Family Hx Physical Exam Vital Signs - First Documented 12/01/18 12/01/18 07:12 07:53 Temp 97.2 Pulse 123 Resp 0 B/P (MAP) 130/93 (105) Pulse Ox 99 O2 Delivery Ambu-Bag FiO2 60 Capillary Refill : Less Than 3 Seconds Height: 5'2.00" Weight: 110lbs. 3.0oz. [id number]; 17.92 BMI Method:Estimated General Appearance: no apparent distress, thin HEENT: PERRL/EOMI, pharynx normal Neck: supple; No lymphadenopathy (R), No lymphadenopathy (L) Respiratory: wheezing, other (intubated with bilateral breath sounds with bagging) Cardiovascular: no murmur, JVD, tachycardia Gastrointestinal: non tender, soft Extremities: non-tender, normal inspection, no pedal edema Neurologic/Psychiatric: other (unresponsive and intubated) Skin: normal color, warm/dry Focused Exam Lactate Level 12/01/18 07:30: Lactic Acid Level 2.54*H 12/01/18 09:35: Lactic Acid Level 1.04 Lactic Acid Level Laboratory Tests Test 12/01/18 07:30 12/01/18 09:35 Lactic Acid Level 2.54 MMOL/L (0.50-2.00) *H 1.04 MMOL/L (0.50-2.00) Procedures/Interventions Lumen: triple Central Line Procedure: betadine prep Position: internal jugular (R) Complications: none Post Position: sutured, good blood return, position confirmed w/ CXR Post chest x-ray showed pneumothorax on the right that is quite large. Likely result from prior to central line placement as needle was visualized directly to vascular status via ultrasound guidance. Chest Tube : Chest Tube Position: Right Chest Tube Location: Anterior Chest Size of Irish Tube (cm): 13 Chest Tube Procedure: betadine prep, sterile drapes applied, sterile dressing applied Stout of Air [place]: Yes Post Procedure CXR?: Yes Progress Thorovent placed to the right anterior chest wall with excellent results. Set up placed to thoracentesis atrium on wall suction with variable noted. Post chest x-ray shows improvement of right-sided pneumothorax. Date of ETT Placement: Dec 01, 2018 Time of ETT Placement: 0712 Tube Size: 7.00 Progress/Results/Core Measures Suspected Sepsis Recent Fever Within 48 Hours: No Infection Criteria Present: None New/Unexplained Altered Menta: No Sepsis Screen: No Definite Risk SIRS Temperature:97.2 Pulse: 99 Respiratory Rate: 14 Laboratory Tests 12/01/18 07:30: White Blood Count 5.4 Blood Pressure 98 /66 Mean: 105 12/01/18 07:30: Lactic Acid Level 2.54*H 12/01/18 09:35: Lactic Acid Level 1.04 Laboratory Tests 12/01/18 07:30: Creatinine 0.82, INR Comment 1.1, Platelet Count 253, Total Bilirubin 0.4 Results/Orders Lab Results Laboratory Tests Test 12/01/18 07:20 12/01/18 07:25 12/01/18 07:30 12/01/18 08:57 Range/Units Blood Gas Puncture Site R WRIST L RAD Blood Gas Patient Temperature 97.2 97.2 Arterial Blood pH 7.23 *L 7.27 *L 7.37-7.43 Arterial Blood Partial Pressure CO2 52 H 47 H 35-45 MMHG Arterial Blood Partial Pressure O2 241 H 127 H 79-93 MMHG Arterial Blood HCO3 21 L 21 L 23-27 MMOL/L Arterial Blood Total CO2 23.0 22.5 21.0-31.0 MMOL/L Arterial Blood Oxygen Saturation 100 99 94-100 % Arterial Blood Base Excess -5.1 L -5.0 L -2.5-2.5 MMOL/L Cristian Test YES-POS YES-POS Blood Gas Ventilator Setting YES YES Blood Gas Inspired Oxygen 100% 100% Urine Color YELLOW Urine Clarity SLIGHTLY CLOUDY Urine pH 5 5-9 Urine Specific [place] 1.025 H 1.016-1.022 Urine Protein 3+ H NEGATIVE Urine Glucose (UA) 4+ H NEGATIVE Urine Ketones NEGATIVE NEGATIVE Urine Nitrite NEGATIVE NEGATIVE Urine Bilirubin NEGATIVE NEGATIVE Urine Urobilinogen NORMAL NORMAL MG/DL Urine Leukocyte Esterase NEGATIVE NEGATIVE Urine RBC (Auto) 2+ H NEGATIVE Urine RBC 2-5 H /HPF Urine WBC RARE /HPF Urine Squamous Epithelial Cells RARE /HPF Urine Crystals PRESENT H /LPF Urine Amorphous Sediment RARE MILES URATES H /LPF Urine Bacteria NEGATIVE /HPF Urine Casts PRESENT /LPF Urine Hyaline Casts 10-25 H /LPF Urine Mucus SMALL H /LPF Urine Culture Indicated NO White Blood Count 5.4 4.3-11.0 10^3/uL Red Blood Count 4.00 L 4.35-5.85 10^6/uL Hemoglobin 13.9 11.5-16.0 G/DL Hematocrit 41 35-52 % Mean Corpuscular Volume 101 H 80-99 FL Mean Corpuscular Hemoglobin 35 H 25-34 PG Mean Corpuscular Hemoglobin Concent 34 32-36 G/DL Red Cell Distribution Width 12.4 10.0-14.5 % Platelet Count 253 130-400 10^3/uL Mean Platelet Volume 9.6 7.4-10.4 FL Neutrophils (%) (Auto) 60 42-75 % Lymphocytes (%) (Auto) 27 12-44 % Monocytes (%) (Auto) 9 0-12 % Eosinophils (%) (Auto) 4 0-10 % Basophils (%) (Auto) 0 0-10 % Neutrophils # (Auto) 3.2 1.8-7.8 X 10^3 Lymphocytes # (Auto) 1.5 1.0-4.0 X 10^3 Monocytes # (Auto) 0.5 0.0-1.0 X 10^3 Eosinophils # (Auto) 0.2 0.0-0.3 10^3/uL Basophils # (Auto) 0.0 0.0-0.1 10^3/uL Prothrombin Time 14.4 12.2-14.7 SEC INR Comment 1.1 0.8-1.4 Activated Partial Thromboplast Time 25 24-35 SEC Sodium Level 135 135-145 MMOL/L Potassium Level 4.1 3.6-5.0 MMOL/L Chloride Level 104 98-107 MMOL/L Carbon Dioxide Level 20 L 21-32 MMOL/L Anion Gap 11 5-14 MMOL/L Blood Urea Nitrogen 9 7-18 MG/DL Creatinine 0.82 0.60-1.30 MG/DL Estimat Glomerular Filtration Rate > 60 BUN/Creatinine Ratio 11 Glucose Level 316 H 70-105 MG/DL Lactic Acid Level 2.54 *H 0.50-2.00 MMOL/L Calcium Level 8.4 L 8.5-10.1 MG/DL Corrected Calcium 8.8 8.5-10.1 MG/DL Total Bilirubin 0.4 0.1-1.0 MG/DL Aspartate Amino Transf (AST/SGOT) 42 H 5-34 U/L Alanine Aminotransferase (ALT/SGPT) 38 0-55 U/L Alkaline Phosphatase 70 40-136 U/L Total Protein 5.8 L 6.4-8.2 GM/DL Albumin 3.5 3.2-4.5 GM/DL Test 12/01/18 09:35 Range/Units Lactic Acid Level 1.04 0.50-2.00 MMOL/L My Orders Orders - JOSH GASTON MD Propofol Injection (Diprivan Injection) (12/01/18 07:20) Propofol Drip (Icu) (Diprivan Drip (Icu) (12/01/18 07:20) Norepinephrine (Levophed) (12/01/18 07:28) Ns (Ivpb) (Sodium Chloride 0.9%) (12/01/18 07:28) Ipratropium 0.02% Neb Solution (Atrovent (12/01/18 07:37) Albuterol Pre-Mix Nebs (Rt) (Proventil (12/01/18 07:37) Cbc With Automated Diff (12/01/18 07:41) Comprehensive Metabolic Panel (12/01/18 07:41) Blood Culture (12/01/18 07:41) Sputum Culture (12/01/18 07:41) Urinalysis (12/01/18 07:41) Urine Culture (12/01/18 07:41) Protime With Inr (12/01/18 07:41) Partial Thromboplastin Time (12/01/18 07:41) Chest 1 View, Ap/Pa Only (12/01/18 07:41) Ed Iv/Invasive Line Start (12/01/18 07:41) Ed Iv/Invasive Line Start (12/01/18 07:41) Vital Signs Adult Sepsis Patie Q15M (12/01/18 07:41) O2 (12/01/18 07:41) Remove Rings In Anticipation O (12/01/18 07:41) Lactic Acid Analyzer (12/01/18 07:41) Ns Iv 1000 Ml (Sodium Chloride 0.9%) (12/01/18 07:41) Albuterol Pre-Mix Nebs (Rt) (Proventil (12/01/18 07:41) Ipratropium 0.02% Neb Solution (Atrovent (12/01/18 07:45) Svn Small Volume Nebulizer (12/01/18 07:41) Svn Small Volume Nebulizer (12/01/18 07:41) Norepinephrine (Levophed) (12/01/18 07:45) Propofol Drip (Icu) (Diprivan Drip (Icu) (12/01/18 07:45) Methylprednisolone Sod Succ (Solu-Medrol (12/01/18 07:45) Arterial Blood Gas (12/01/18 07:46) Chest 1 View, Ap/Pa Only (12/01/18 08:27) Mrsa Screen (Icu,Preop,Cath) (12/01/18 08:51) Mrsa Nursing Screening/Treatme .admit (12/01/18 08:51) Piperacillin Sodium/Tazobactam (Zosyn Vi (12/01/18 09:00) Vancomycin Injection (Vancomycin Injecti (12/01/18 09:00) Arterial Blood Gas (12/01/18 08:51) Midazolam Injection (Versed Injection) (12/01/18 10:00) Midazolam Injection (Versed Injection) (12/01/18 09:46) Midazolam Injection (Versed Injection) (12/01/18 12:08) Medications Given in ED Current Medications Medications Dose Ordered Sig/Mark Route Start Time Stop Time Status Last Admin Dose Admin Albuterol Sulfate 2.5 mg STK-MED ONCE .ROUTE 12/01/18 07:37 12/01/18 07:41 DC 12/01/18 07:44 2.5 MG Ipratropium [place] 0.5 mg STK-MED ONCE IH 12/01/18 07:37 12/01/18 07:41 DC 12/01/18 07:43 0.5 MG Piperacillin Sod/ Tazobactam Sod 4.5 gm/Sodium Chloride 100 ml @ 200 mls/hr ONCE ONCE IV 12/01/18 09:00 12/01/18 09:29 DC 12/01/18 09:18 200 MLS/HR Vital Signs/I&O 12/01/18 12/01/18 12/01/18 07:12 07:53 08:19 Temp 97.2 97.2 Pulse 123 99 103 Resp 0 14 12 B/P (MAP) 130/93 (105) 146/89 Pulse Ox 99 97 99 O2 Delivery Ambu-Bag Mechanical Ventilator FiO2 60 Capillary Refill : Less Than 3 Seconds Blood Pressure Mean: 105 Progress Note : Progress Note Seen and evaluated on arrival by EMS. Patient is in extremis at this point but is intubated and airway being uncontrolled. IV is established and septic workup initiated. Patient to be transitioned to [place]. Patient did have decline in blood pressure to 60 systolic. Decision was made to place right sided central line via IJ and ultrasound guidance. This was placed. Post line placement chest x-ray shows right-sided pneumothorax. Needle decompression initiated but did not have a stout of air. Thoro-vent placed by me to the right anterior chest wall and greater than 1 L of air removed and patient was placed on chest tube atrium and wall suction. Post chest x-ray shows improvement of pneumothorax. Patient placed on Levophed and propofol drips for blood pressure and sedation. I discussed the case with Dr. Roca. We will try to admit the patient here but are limited on bed space. We have initiated continuous one-hour treatment and patient was given 125 mg of Solu-Medrol IV. We will initiate Zosyn 4.5 g IV and vancomycin 1 g IV possibility of infection due to elevated lactic acid and hypotension. Patient also received 2 L of normal saline IV which exceeds the 30 mL/kg IV dosing. All labs including blood cultures and lactic acid were drawn. 0920: Patient is doing better Levophed appointment 0.13 mcg/kg/m and propofol at 30 mcg/kg/m. Blood pressure 141/76 with heart rate of 111 and a PO2 of 99%. Respiratory rate is 12 with a PEEP of 5 and tidal volume of 450. Temperature is currently 96.4. All findings and concerns were discussed with the family who agrees with plan. Pending bed assignment. 1024: Initiated contact with [facility]. We unfortunately have no ICU bed availability here. In discussion with the family, this was their choice. Current heart rate of 112 with O2 sat 98% on 60% FiO2 with tidal volume of 450 and rate of 12. PEEP of 5 continued. Blood pressure currently 114/73. 1044: I have discussed the case with Dr Hutchins at [place] [facility]. He has accepted the patient for transfer. Pending bed assignment. Diagnostic Imaging Diagonstic Imaging: Xray Plain Films/CT/US/NM/MRI: chest Comments NAME: RICK BOOKER MED REC#: [id number] PT STATUS: REG ER : 1945 PHYSICIAN: JOSH GASTON MD ADMIT DATE: 12/01/18/ER Signed Date of Exam: 12/01/18 CHEST 1 VIEW, AP/PA ONLY CLINICAL INDICATION: Patient with central line and ET tube placement. EXAM: Portable chest x-ray supine view. COMPARISON: Portable chest x-ray upright view dated 09/16/2018. FINDINGS: Of note, patient is slightly rotated on exam. There is interval placement of ET tube with tip at the level of the tristan. This tube should be withdrawn 3 cm. Interval placement of a right IJ central line has been placed in the interim with tip overlying the expected region of the distal superior vena cava. There is interval placement of a feeding tube with the distal portion not completely visualize, but is below the level of the diaphragm. There is a moderate sized right pneumothorax with mild atelectasis of the right lung most pronounced in the right lung apex. There is mild leftward shift of the mediastinal structures. There is superimposed diffuse chronic lung changes with bilateral apical pleural-parenchymal thickening/scarring and consolidation. There is also superior hilar retraction seen. Pulmonary vasculature is obscured. Cardiac silhouettes within normal limits. Bones show no significant abnormality. IMPRESSION: 1: There is interval development of a moderate sized right pneumothorax. There is slight leftward shift of the mediastinal structures. 2: Interval placement of ET tube with tip at the level of the tristan. This tube needs to be withdrawn 3 cm. 3: Interval placement right IJ central line with tip overlying the expected region of the distal superior vena cava. 4: There is mild right lung atelectasis most pronounced in the right lung apex. This is superimposed upon previously seen chronic lung disease including bilateral apical pleural-parenchymal thickening/scarring and superior bilateral hilar retraction. Results of this report, regarding right pneumothorax and ET tube placement, was discussed with Deidre GRIFFIN working with Dr. Josh Gaston on 12/01/2018 at 0819 hours. Dictated by: Dictated on workstation # [id number] Dict: 12/01/18 0817 Trans: 12/01/18 0847 Interpreted by: RANDOLPH MACHADO MD Electronically signed by: RANDOLPH MACHADO MD 12/01/18 0847 Diagonstic Imaging: Xray Plain Films/CT/US/NM/MRI: chest Comments [facility] [place] [place] NAME: RICK BOOKER MED REC#: [id number] PT STATUS: REG ER : 1945 PHYSICIAN: JOSH GASTON MD ADMIT DATE: 12/01/18/ER Draft Date of Exam:12/01/18 CHEST 1 VIEW, AP/PA ONLY Clinical indication: Patient with right pneumothorax post chest tube placement. Exam: Portable chest x-ray supine view. Comparison: Portable chest x-ray supine view dated 12/01/2018. Findings: There is interval placement right chest tube overlying the lateral right upper lung for region. There is interval decreased size of the right pneumothorax with small amount remaining in the lateral right lung apex and right lung base regions. There is improved aeration of the right lung with continued partial consolidation right lung apex which may represent atelectasis. There is interval slight withdrawal of the ET tube with tip now seen roughly 3 cm from the level of the tristan in good position. Right IJ central line again seen with tip overlying the expected region of the distal superior vena cava. Again seen feeding tube with the proximal port overlying the expected region of the gastric fundus. The distal portion of the feeding tube is not completely imaged. There is stable appearance of the chronic lung changes with increased lung markings throughout both lungs and bilateral apical pleural-parenchymal thickening/scarring and patchy consolidation. There is also superior bilateral hilar retraction from chronic changes. Impression: 1: Interval placement of right chest tube with interval decreased size of the right pneumothorax with small right pneumothorax remaining. 2: Interval withdrawal of the ET tube which is now in good position. 3: The remainder of this exam shows no significant interval change compared to the prior study of comparison. Dictated on workstation # [id number] Dict: 12/01/18 0843 Trans: 12/01/18 0857 [facility] [place] [id number] Interpreted by: RANDOLPH MACHADO MD Electronically signed by: Departure Impression Primary Impression: Respiratory failure with hypoxia and hypercapnia Qualified Codes: J96.21 - Acute and chronic respiratory failure with hypoxia; J96.22 - Acute and chronic respiratory failure with hypercapnia Additional Impression: Pneumothorax, right Disposition: 02 XFER SHT-TRM HOSP Condition: Stable Transfer Time Spoke to Accepting Phy: 10:44 Transfer Facility: [place], [place], Dr. Hutchins accepting Method of Transfer: EMS Departure-Patient Inst. Referrals: SLICK DE SANTIAGO MD (PCP/Family) Primary Care Physician JOSH GASTON MD Dec 01, 2018 09:15
[2018-12-01] MEDS ORDERED: MIDAZOLAM 5 MG/5 ML (VERSED) VIAL ONE ×2 (09:46→12:08)
[2018-12-01] MEDS ORDERED: MIDAZOLAM 5 MG/5 ML (VERSED) VIAL IVP ONE (10:00)
--- NOTE | 2018-12-01 10:26 | NUR ---
pt karen and watch given to pt family at this time.
--- NOTE | 2018-12-01 11:20 | NUR ---
levophed stopped at this time. pt current bp 101/64.
--- NOTE | 2018-12-01 11:37 | NUR ---
pt family at bedside. pt family informed of pt progress to transport.
--- NOTE | 2018-12-01 11:49 | NUR ---
Levophed started at 0.1 mcg/kg/min at this time. pt bp 97/66. pt hr 112
[2018-12-01 12:32] VITALS: BP 128/75
[2018-12-01] MEDS ORDERED: NS IV 1000 ML 2,000 ML ONE (16:15)
== END 2018-12-01 12:32 | disposition short-term general hospital (02) ==
LOC: EDUNIT# 07:10 → ER 07:12
DX: J96.21 Acute and chronic respiratory failure with hypoxia (principal); J96.22 Acute and chronic respiratory failure with hypercapnia; J93.9 Pneumothorax, unspecified; J43.9 Emphysema, unspecified; Z82.49 Family history of ischemic heart disease and other diseases of the circulatory system; Z79.82 Long term (current) use of aspirin; Z79.52 Long term (current) use of systemic steroids; Z87.891 Personal history of nicotine dependence; Z90.2 Acquired absence of lung [part of]
CPT/HCPCS: 36415; 71045; 80053; 81000; 82805; 83605; 85025; 85610; 85730; 87040; 87070; 87077; 87081; 87088; 87205; 94640; 99291

== ENCOUNTER 2019-01-01 09:13 | Emergency (ER) | payer MEDICARE, OTHER ==
[~2019-01-01] VITALS: Ht 154.9 cm; Wt 52.2 kg
--- OUTSIDE RECORDS SUMMARY | 2019-01-01 09:19 | XMS REPORT | Continuity of Care Document ---
Author Organization Unknown Address Unknown Allergies Active Description Code Type Severity Reaction Onset Reported/Identified Relationship to Patient Clinical Status Yes No Known Drug Allergies [id number] Drug Allergy Unknown N/A 04/05/2015 Medications There is no data. Problems Date Dx Coded Attending Type Code Diagnosis Diagnosed By 12/28/2012 EKTA MARLOW Ot 427.69 PREMATURE BEATS NEC 12/28/2012 EKTA MARLOW Ot 785.1 PALPITATIONS 05/27/2013 MCRAE WESLEY ALEJANDROA K V04.81 FLU SHOT 05/27/2013 MCRAE WESLEY ALEJANDROA K V04.81 FLU SHOT 11/04/2013 MCARE WESLEY ALEJANDROA K V03.82 PPV23 (PNEUMOVAX) DX 04/15/2014 LATANYA ALFREDO MD Ot 305.1 TOBACCO USE DISORDER 04/15/2014 LATANYA ALFREDO MD Ot 458.9 HYPOTENSION NOS 04/15/2014 LATANYA ALFREDO MD Ot 486 PNEUMONIA, ORGANISM NOS 04/15/2014 LATANYA ALFREDO MD R Ot 491.21 OBSTR CHRONIC BRONCHITIS, W (ACUTE) EXAC 04/15/2014 LATANYA ALFREDO MD Ot 560.9 INTESTINAL OBSTRUCT NOS 04/15/2014 LATANYA ALFREDO MD R Ot 785.1 PALPITATIONS 04/15/2014 LATANYA ALFREDO MD R Ot 786.59 CHEST PAIN NEC 04/15/2014 LATANYA ALFREDO MD Ot 787.20 DYSPHAGIA, UNSPECIFIED 04/15/2014 LATANYA ALFREDO MD Ot V45.76 ACQRD ABSENCE OF LUNG 04/18/2014 LATANYA ALFREDO MD Ot 486 PNEUMONIA, ORGANISM NOS 04/18/2014 LATANYA ALFREDO MD R Ot 491.22 OBSTRUCTIVE CHRONIC BRONCHITIS WITH ACUT 04/18/2014 LATANYA ALFREDO MD Ot 785.1 PALPITATIONS 08/01/2014 EBENEZER BEVERLY DO Ot 305.1 TOBACCO USE DISORDER 08/01/2014 SIRIA DO EBENEZER [place] Ot 496 CHR AIRWAY OBSTRUCT NEC 08/01/2014 SIRIA ALEJANDRO EBENEZER [place] Ot 786.09 RESPIRATORY ABNORM NEC 08/16/2014 SIRIA DO EBENEZER Sears Ot 496 08/16/2014 SIRIA ALEJANDROMKEBENEZER [place] Ot 786.09 08/17/2014 Ot 529.8 08/17/2014 Ot [...] EBENEZER BEVERLY DO Ot 786.09 08/25/2014 EBENEZER BEVERLY DO Ot 496 08/25/2014 EBENEZER BEVERLY DO Ot 786.09 09/06/2014 EBENEZER BEVERLY DO Ot 496 09/06/2014 EBENEZER BEVERLY DO Ot 786.09 09/15/2014 EBENEZER BEVERLY DO Ot 496 09/15/2014 MK BEVERLY DOSON M Ot 786.09 03/31/2015 BRANDEE MARQUEZ MD Ot V72.84 04/05/2015 Ot 427.69 04/05/2015 Ot 785.1 04/05/2015 SIRIA EBENEZER ALEJANDRO Ot 305.1 04/05/2015 SIRIA EBENEZER ALEJANDRO Ot 496 04/05/2015 SIRIA EBENEZER ALEJANDRO Ot 786.09 04/05/2015 BRANDEE AMRQUEZ MD Ot 211.4 BENIGN NEOPL RECTUM/ANUS 04/05/2015 [...] UNSPECIFIED 06/29/2016 FRAN CH MD Ot Z79.82 GROUP HOME (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 06/29/2016 FRAN CH MD Ot Z87.891 PERSONAL HISTORY OF NICOTINE DEPENDENCE 07/08/2016 SAUNDRA MEHTA Ot J18.9 PNEUMONIA, UNSPECIFIED ORGANISM 07/08/2016 SAUNDRA MEHTA Ot J44.9 CHRONIC OBSTRUCTIVE PULMONARY DISEASE, U 07/08/2016 SAUNDRA MEHTA Ot Z79.82 BELL ATTENDANT (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 07/08/2016 SAUNDRA MEHTA Ot Z79.899 OTHER BELL ATTENDANT (CURRENT) DRUG THERAPY 07/08/2016 SAUNDRA MEHTA Ot Z87.891 PERSONAL HISTORY OF NICOTINE DEPENDENCE 07/09/2016 SAUNDRA MEHTA Ot J18.9 PNEUMONIA, UNSPECIFIED ORGANISM 07/09/2016 SAUNDRA MEHTA Ot J44.9 CHRONIC OBSTRUCTIVE PULMONARY DISEASE, U 07/09/2016 SAUNDRA MEHTA Ot Z79.82 GROUP HOME (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 07/09/2016 SAUNDRA MEHTA Ot Z79.899 OTHER BELL ATTENDANT (CURRENT) DRUG THERAPY 07/09/2016 SAUNDRA MEHTA Ot Z87.891 PERSONAL HISTORY OF NICOTINE DEPENDENCE 08/30/2016 SOBIA BANGURA E LEARNING MANAGER Ot J18.9 PNEUMONIA, UNSPECIFIED ORGANISM 08/30/2016 SOBIA BANGURA E LEARNING MANAGER Ot J44.0 CHRONIC OBSTRUCTIVE PULMON DISEASE W ACU 08/30/2016 SOBIA BANGURA E LEARNING MANAGER Ot J44.1 CHRONIC OBSTRUCTIVE PULMONARY DISEASE W 08/30/2016 SOBIA BANGURA E LEARNING MANAGER Ot R09.02 HYPOXEMIA 08/30/2016 SOBIA BANGURA E LEARNING MANAGER Ot R91.1 SOLITARY PULMONARY NODULE 08/30/2016 SOBIA BANGURA E LEARNING MANAGER Ot Z72.0 TOBACCO USE 09/27/2016 SOBIA BANGURA E LEARNING MANAGER Ot J18.9 PNEUMONIA, UNSPECIFIED ORGANISM 09/27/2016 SOBIA BANGURA E LEARNING MANAGER Ot J44.0 CHRONIC OBSTRUCTIVE PULMON DISEASE W ACU 09/27/2016 SOBIA BANGURA E LEARNING MANAGER Ot J44.1 CHRONIC OBSTRUCTIVE PULMONARY DISEASE W 09/27/2016 SOBIA BANGURA E LEARNING MANAGER Ot R09.02 HYPOXEMIA 09/27/2016 SOBIA BANGURA E LEARNING MANAGER Ot R91.1 SOLITARY PULMONARY NODULE 09/27/2016 SOBIA BANGURA E LEARNING MANAGER Ot Z72.0 TOBACCO USE 05/02/2017 SOBIA BANGURA E LEARNING MANAGER Ot J84.9 INTERSTITIAL PULMONARY DISEASE, UNSPECIF 05/02/2017 SOBIA BANGURA E LEARNING MANAGER Ot R09.02 HYPOXEMIA 05/02/2017 SOBIA BANGURA E LEARNING MANAGER Ot Z72.0 TOBACCO USE 07/31/2017 Ot [...] DISEASE W 07/31/2017 SOBIA BANGURA APRN Ot R09.02 HYPOXEMIA 07/31/2017 SOBIA BANGURA APRN Ot R91.1 SOLITARY PULMONARY NODULE 07/31/2017 SOBIA BANGURA APRN Ot Z72.0 TOBACCO USE 07/31/2017 SOBIA BANGURA APRN Ot J84.9 INTERSTITIAL PULMONARY DISEASE, UNSPECIF 07/31/2017 SOBIA BANGURA APRN Ot R09.02 HYPOXEMIA 07/31/2017 SOBIA BANGURA APRN Ot Z72.0 TOBACCO USE 08/27/2017 SOBIA BANGURA APRN Ot J43.9 EMPHYSEMA, UNSPECIFIED 08/27/2017 SOBIA BANGURA APRN Ot Z98.890 OTHER SPECIFIED POSTPROCEDURAL STATES 04/03/2018 Ot 427.69 PREMATURE BEATS NEC 04/03/2018 Ot 785.1 PALPITATIONS 04/03/2018 SIRIA ALEJANDRO EBENEZER M Ot 305.1 TOBACCO USE DISORDER 04/03/2018 EBENEZER BEVERLY DO Ot 486 PNEUMONIA, ORGANISM NOS 04/03/2018 SIRIA ALEJANDROEBENEZER Ot 786.09 RESPIRATORY ABNORM NEC 04/03/2018 SIRIATSERING ALEJANDRO EBENEZER M Ot 496 CHR AIRWAY OBSTRUCT NEC 04/03/2018 SIRIA ALEJANDRO EBENEZER M Ot 786.09 RESPIRATORY ABNORM NEC 04/03/2018 SIRIA EBENEZER Sears Ot 305.1 TOBACCO USE DISORDER 04/03/2018 SIRIA ALEJANDRO EBENEZER M Ot 496 CHR AIRWAY OBSTRUCT NEC 04/03/2018 SIRIA ALEJANDRO EBENEZER M Ot 786.09 RESPIRATORY ABNORM NEC 04/03/2018 SIRIA EBENEZER M Ot 496 CHR AIRWAY OBSTRUCT NEC 04/03/2018 SIRIA ALEJANDRO EBENEZER M Ot 786.09 RESPIRATORY ABNORM NEC 04/03/2018 JIMMY TORRES, BRANDEE Ot V72.84 EXAM PRE-OPERATIVE NOS 04/03/2018 SOBIA BANGURA E LEARNING MANAGER Ot J44.1 CHRONIC OBSTRUCTIVE PULMONARY DISEASE W 04/03/2018 SOBIA BANGURA E LEARNING MANAGER Ot J18.9 PNEUMONIA, UNSPECIFIED ORGANISM 04/03/2018 SOBIA BANGURA E LEARNING MANAGER Ot J44.0 CHRONIC OBSTRUCTIVE PULMON DISEASE W ACU 04/03/2018 SOBIA BANGURA E LEARNING MANAGER Ot J44.1 CHRONIC OBSTRUCTIVE PULMONARY DISEASE W 04/03/2018 SOBIA BANGURA E LEARNING MANAGER Ot R09.02 HYPOXEMIA 04/03/2018 SOBIA BANGURA E LEARNING MANAGER Ot R91.1 SOLITARY PULMONARY NODULE 04/03/2018 SOBIA BANGURA E LEARNING MANAGER Ot Z72.0 TOBACCO USE 04/03/2018 SOBIA BANGURA E LEARNING MANAGER Ot J84.9 INTERSTITIAL PULMONARY DISEASE, UNSPECIF 04/03/2018 SOBIA BANGURA E LEARNING MANAGER Ot R09.02 HYPOXEMIA 04/03/2018 SOBIA BANGURA E LEARNING MANAGER Ot Z72.0 TOBACCO USE 04/03/2018 SOBIA BANGURA E LEARNING MANAGER Ot J43.9 EMPHYSEMA, UNSPECIFIED 04/03/2018 SOBIA BANGURA E LEARNING MANAGER Ot Z98.890 OTHER SPECIFIED POSTPROCEDURAL STATES 04/16/2018 Ot 427.69 PREMATURE BEATS NEC 04/16/2018 Ot 785.1 PALPITATIONS 04/16/2018 SIRIA ALEJANDRO EBENEZER M Ot 305.1 TOBACCO USE DISORDER 04/16/2018 EBENEZER BEVERLY DO Ot 486 PNEUMONIA, ORGANISM NOS 04/16/2018 SIRIA ALEJANDRO EBENEZER M Ot 786.09 RESPIRATORY ABNORM NEC 04/16/2018 SIRIA ALEJANDRO EBENEZER M Ot 496 CHR AIRWAY OBSTRUCT NEC 04/16/2018 SIRIA ALEJANDRO EBENEZER M Ot 786.09 RESPIRATORY ABNORM NEC 04/16/2018 SIRIA ALEJANDRO EBENEZER M Ot 305.1 TOBACCO USE DISORDER 04/16/2018 SIRIA ALEJANDRO EBENEZER M Ot 496 CHR AIRWAY OBSTRUCT NEC 04/16/2018 EBENEZER BEVERLY DO Ot 786.09 RESPIRATORY ABNORM NEC 04/16/2018 SIRIA ALEJANDRO EBENEZER M Ot 496 CHR AIRWAY OBSTRUCT NEC 04/16/2018 SIRIA ALEJANDRO EBENEZER M Ot 786.09 RESPIRATORY ABNORM NEC 04/16/2018 JIMMY TORRES, BRANDEE Ot V72.84 EXAM PRE-OPERATIVE NOS 04/16/2018 SOBIA BANGURA E LEARNING MANAGER Ot J44.1 CHRONIC OBSTRUCTIVE PULMONARY DISEASE W 04/16/2018 SOBIA BANGURA E LEARNING MANAGER Ot J18.9 PNEUMONIA, UNSPECIFIED ORGANISM 04/16/2018 SOBIA BANGURA E LEARNING MANAGER Ot J44.0 CHRONIC OBSTRUCTIVE PULMON DISEASE W ACU 04/16/2018 SOBIA BANGURA E LEARNING MANAGER Ot J44.1 CHRONIC OBSTRUCTIVE PULMONARY DISEASE W 04/16/2018 SOBIA BANGURA E LEARNING MANAGER Ot R09.02 HYPOXEMIA 04/16/2018 SOBIA BANGURA E LEARNING MANAGER Ot R91.1 SOLITARY PULMONARY NODULE 04/16/2018 SOBIA BANGURA E LEARNING MANAGER Ot Z72.0 TOBACCO USE 04/16/2018 SOBIA BANGURA E LEARNING MANAGER Ot J84.9 INTERSTITIAL PULMONARY DISEASE, UNSPECIF 04/16/2018 SOBIA BANGURA E LEARNING MANAGER Ot R09.02 HYPOXEMIA 04/16/2018 SOBIA BANGURA E LEARNING MANAGER Ot Z72.0 TOBACCO USE 04/16/2018 SOBIA BANGURA E LEARNING MANAGER Ot J43.9 EMPHYSEMA, UNSPECIFIED 04/16/2018 SOBIA BANGURA E LEARNING MANAGER Ot Z98.890 OTHER SPECIFIED POSTPROCEDURAL STATES 04/17/2018 SOBIA BANGURA APRN Ot J18.9 PNEUMONIA, UNSPECIFIED ORGANISM 04/17/2018 SOBIA BANGURA APRN Ot J44.9 CHRONIC OBSTRUCTIVE PULMONARY DISEASE, U 05/06/2018 SOBIA BANGURA E LEARNING MANAGER Ot J18.9 PNEUMONIA, UNSPECIFIED ORGANISM 05/06/2018 SOBIA BANGURA E LEARNING MANAGER Ot J44.9 CHRONIC OBSTRUCTIVE PULMONARY DISEASE, U 06/29/2018 JONNATHAN TORRES, SLICK Perez Ot I67.82 CEREBRAL ISCHEMIA 07/30/2018 SOBIA BANGURA E LEARNING MANAGER Ot J44.1 CHRONIC OBSTRUCTIVE PULMONARY DISEASE W 07/30/2018 SOBIA BANGURA APRN Ot Z72.0 TOBACCO USE 07/30/2018 SOBIA BANGURA E LEARNING MANAGER Ot Z98.890 OTHER SPECIFIED POSTPROCEDURAL STATES 08/20/2018 SOBIA BANGURA E LEARNING MANAGER Ot J44.1 CHRONIC OBSTRUCTIVE PULMONARY DISEASE W 08/20/2018 SOBIA BANGURA APRN Ot Z72.0 TOBACCO USE 08/20/2018 SOBIA BANGURA APRN Ot Z98.890 OTHER SPECIFIED POSTPROCEDURAL STATES 09/16/2018 JOYCELYN TORRES, TIGRE Elizabeth Ot J43.9 EMPHYSEMA, UNSPECIFIED 09/16/2018 TIGRE HIRSCH MD Ot R07.81 PLEURODYNIA 09/16/2018 TIGRE HIRSCH MD Ot R07.89 OTHER CHEST PAIN 09/16/2018 TIGRE HIRSCH MD Ot Z79.51 GROUP HOME (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 OF INHALED STERO 09/16/2018 TIGRE HIRSCH MD Ot Z79.52 GROUP HOME (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 OF SYSTEMIC STER 09/16/2018 TIGRE HIRSCH MD Ot Z79.82 GROUP HOME (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 09/16/2018 TIGRE HIRSCH MD Ot Z82.49 FAMILY HX OF ISCHEM HEART DIS AND OTH DI 09/16/2018 TIGRE HIRSCH MD Ot Z87.09 PERSONAL HISTORY OF OTHER DISEASES OF TH 09/16/2018 TIGRE HIRSCH MD Ot Z90.2 ACQUIRED ABSENCE OF LUNG [PART OF] 09/18/2018 TIGRE HIRSCH MD, Ot J43.9 EMPHYSEMA, UNSPECIFIED 09/18/2018 TIGRE HIRSCH MD Ot R07.81 PLEURODYNIA 09/18/2018 TIGRE HIRSCH MD Ot R07.89 OTHER CHEST PAIN 09/18/2018 TIGRE HIRSCH MD Ot Z79.51 GROUP HOME (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 OF INHALED STERO 09/18/2018 TIGRE HIRSCH MD Ot Z79.52 GROUP HOME (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 OF SYSTEMIC STER 09/18/2018 TIGRE HIRSCH MD Ot Z79.82 BELL ATTENDANT (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 09/18/2018 TIGRE HIRSCH MD Ot Z82.49 FAMILY HX OF ISCHEM HEART DIS AND OTH DI 09/18/2018 TIGRE HIRSCH MD Ot Z87.09 PERSONAL HISTORY OF OTHER DISEASES OF TH 09/18/2018 TIGRE HIRSCH MD Ot Z90.2 ACQUIRED ABSENCE OF LUNG [PART OF] 12/01/2018 ZAIN GASTON MD Ot J43.9 EMPHYSEMA, UNSPECIFIED 12/01/2018 ZAIN GASTON MD Ot J93.9 PNEUMOTHORAX, UNSPECIFIED 12/01/2018 ZAIN GASTON MD Ot J96.21 ACUTE AND CHRONIC RESPIRATORY FAILURE [place] 12/01/2018 ZAIN GASTON MD Ot J96.22 ACUTE AND CHRONIC RESPIRATORY FAILURE [place] 12/01/2018 ZAIN GASTON MD Ot R06.02 SHORTNESS OF BREATH 12/01/2018 ZAIN GASTON MD Ot Z79.52 GROUP HOME (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 OF SYSTEMIC STER 12/01/2018 ZAIN GASTON MD Ot Z79.82 BELL ATTENDANT (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 12/01/2018 ZAIN GASTON MD Ot Z82.49 FAMILY HX OF ISCHEM HEART DIS AND OTH DI 12/01/2018 ZAIN GASTON MD Ot Z87.891 PERSONAL HISTORY OF NICOTINE DEPENDENCE 12/01/2018 ZAIN GASTON MD Ot Z90.2 ACQUIRED ABSENCE OF LUNG [PART OF] Procedures Code Description Performed By Performed On [...] plasma calcium measurement (mass/volume) 9.7 mg/dL 8.5-10.1 Complete blood count (CBC) with automated white blood cell (WBC) differential - 09/16/18 08:22 Blood leukocytes automated count (number/volume) 6.0 10*3/uL 4.3-11.0 Blood erythrocytes automated count (number/volume) 4.74 10*6/uL 4.35-5.85 Venous blood hemoglobin measurement (mass/volume) 15.9 g/dL 11.5-16.0 Blood hematocrit (volume fraction) 48 % 35-52 Automated erythrocyte mean corpuscular volume 102 [foz_us] 80-99 Automated erythrocyte mean corpuscular hemoglobin (mass per erythrocyte) 34 pg 25-34 Automated erythrocyte mean corpuscular hemoglobin concentration measurement ( mass/volume) 33 g/dL 32-36 Automated erythrocyte distribution width ratio 14.1 % 10.0-14.5 Automated blood platelet count (count/volume) 260 10*3/uL 130-400 Automated blood platelet mean volume measurement 9.5 [foz_us] 7.4-10.4 Automated blood neutrophils/100 leukocytes 70 % 42-75 Automated blood lymphocytes/100 leukocytes 17 % 12-44 Blood monocytes/100 leukocytes 10 % 0-12 Automated blood eosinophils/100 leukocytes 3 % 0-10 Automated blood basophils/100 leukocytes 1 % 0-10 Blood neutrophils automated count (number/volume) 4.2 10*3 1.8-7.8 Blood lymphocytes automated count (number/volume) 1.0 10*3 1.0-4.0 Blood monocytes automated count (number/volume) 0.6 10*3 0.0-1.0 Automated eosinophil count 0.2 10*3/uL 0.0-0.3 Automated blood basophil count (count/volume) 0.1 10*3/uL 0.0-0.1 Comprehensive metabolic panel - 09/16/18 08:22 Serum or plasma sodium measurement (moles/volume) 138 mmol/L 135-145 Serum or plasma potassium measurement (moles/volume) 4.3 mmol/L 3.6-5.0 Serum or plasma chloride measurement (moles/volume) 102 mmol/L 98-107 Carbon dioxide 22 mmol/L 21-32 Serum or plasma anion gap determination (moles/volume) 14 mmol/L 5-14 Serum or plasma urea nitrogen measurement (mass/volume) 8 mg/dL 7-18 Serum or plasma creatinine measurement (mass/volume) 0.75 mg/dL 0.60-1.30 Serum or plasma urea nitrogen/creatinine mass ratio 11 NRG Serum or plasma creatinine measurement with calculation of estimated glomerular filtration rate > NRG Serum or plasma glucose measurement (mass/volume) 96 mg/dL 70-105 Serum or plasma calcium measurement (mass/volume) 9.7 mg/dL 8.5-10.1 Serum or plasma total bilirubin measurement (mass/volume) 0.7 mg/dL 0.1-1.0 Serum or plasma alkaline phosphatase measurement (enzymatic activity/volume) 102 U/L 40-136 Serum or plasma aspartate aminotransferase measurement (enzymatic activity/ volume) 46 U/L 5-34 Serum or plasma alanine aminotransferase measurement (enzymatic activity/volume ) 41 U/L 0-55 Serum or plasma protein measurement (mass/volume) 8.0 g/dL 6.4-8.2 Serum or plasma albumin measurement (mass/volume) 4.4 g/dL 3.2-4.5 CALCIUM CORRECTED 9.4 mg/dL 8.5-10.1 Fibrin D-dimer FEU measurement in platelet poor plasma (mass/volume) - 08:22 Fibrin D-dimer FEU measurement in platelet poor plasma (mass/volume) 0.41 ug/mL 0.00-0.49 Arterial blood gas measurement - 12/01/18 07:20 Blood pCO2 52 mm[Hg] 35-45 Blood pO2 241 mm[Hg] 79-93 Arterial blood bicarbonate measurement (moles/volume) 21 mmol/L 23-27 Arterial blood base excess by calculation -5.1 mmol/L - 2.5-2.5 Arterial blood oxygen saturation measurement 100 % 94- 100 * Inhaled oxygen flow rate 100% NRG Arterial blood pH measurement with patient temperature correction 7.23 7.37-7.43 Arterial blood carbon dioxide, total measurement (moles/volume) 23.0 mmol/L 21.0-31.0 Body site R WRIST NRG Assessment of wrist artery patency prior to arterial puncture YES- POS NRG Setting of ventilation mode YES NRG Measurement of body temperature 97.2 NRG Complete urinalysis with reflex to culture - 12/01/18 07:25 Urine color determination YELLOW NRG Urine clarity determination SLIGHTLY CLOUDY NRG Urine pH measurement by test strip 5 5-9 Specific gravity of urine by test strip 1.025 1.016- 1.022 Urine protein assay by test strip, semi-quantitative 3+ NEGATIVE Urine glucose detection by automated test strip 4+ NEGATIVE Erythrocytes detection in urine sediment by light microscopy 2+ NEGATIVE Urine ketones detection by automated test strip NEGATIVE NEGATIVE Urine nitrite detection by test strip NEGATIVE NEGATIVE Urine total bilirubin detection by test strip NEGATIVE NEGATIVE Urine urobilinogen measurement by automated test strip (mass/volume) NORMAL NORMAL Urine leukocyte esterase detection by dipstick NEGATIVE NEGATIVE Automated urine sediment erythrocyte count by microscopy (number/high power field) [HPF] NRG Automated urine sediment leukocyte count by microscopy (number/high power field ) RARE NRG Bacteria detection in urine sediment by light microscopy NEGATIVE NRG Squamous epithelial cells detection in urine sediment by light microscopy RARE NRG Crystals detection in urine sediment by light microscopy PRESENT NRG Casts detection in urine sediment by light microscopy PRESENT NRG Mucus detection in urine sediment by light microscopy SMALL NRG Complete urinalysis with reflex to culture NO NRG Amorphous sediment detection in urine sediment by light microscopy RARE MILES URATES NRG Hyaline casts detection in urine sediment by light microscopy 10-25 NRG Bacterial urine culture - 12/01/18 07:25 Bacterial urine culture NG NRG Complete blood count (CBC) with automated white blood cell (WBC) differential - 12/01/18 07:30 Blood leukocytes automated count (number/volume) 5.4 10*3/uL 4.3-11.0 Blood erythrocytes automated count (number/volume) 4.00 10*6/uL 4.35-5.85 Venous blood hemoglobin measurement (mass/volume) 13.9 g/dL 11.5-16.0 Blood hematocrit (volume fraction) 41 % 35-52 Automated erythrocyte mean corpuscular volume 101 [foz_us] 80-99 Automated erythrocyte mean corpuscular hemoglobin (mass per erythrocyte) 35 pg 25-34 Automated erythrocyte mean corpuscular hemoglobin concentration measurement ( mass/volume) 34 g/dL 32-36 Automated erythrocyte distribution width ratio 12.4 % 10.0-14.5 Automated blood platelet count (count/volume) 253 10*3/uL 130-400 Automated blood platelet mean volume measurement 9.6 [foz_us] 7.4-10.4 Automated blood neutrophils/100 leukocytes 60 % 42-75 Automated blood lymphocytes/100 leukocytes 27 % 12-44 Blood monocytes/100 leukocytes 9 % 0-12 Automated blood eosinophils/100 leukocytes 4 % 0-10 Automated blood basophils/100 leukocytes 0 % 0-10 Blood neutrophils automated count (number/volume) 3.2 10*3 1.8-7.8 Blood lymphocytes automated count (number/volume) 1.5 10*3 1.0-4.0 Blood monocytes automated count (number/volume) 0.5 10*3 0.0-1.0 Automated eosinophil count 0.2 10*3/uL 0.0-0.3 Automated blood basophil count (count/volume) 0.0 10*3/uL 0.0-0.1 Blood lactic acid measurement (moles/volume) - 12/01/18 07:30 Blood lactic acid measurement (moles/volume) 2.54 mmol/L 0.50-2.00 Comprehensive metabolic panel - 12/01/18 07:30 Serum or plasma sodium measurement (moles/volume) 135 mmol/L 135-145 Serum or plasma potassium measurement (moles/volume) 4.1 mmol/L 3.6-5.0 Serum or plasma chloride measurement (moles/volume) 104 mmol/L 98-107 Carbon dioxide 20 mmol/L 21-32 Serum or plasma anion gap determination (moles/volume) 11 mmol/L 5-14 Serum or plasma urea nitrogen measurement (mass/volume) 9 mg/dL 7-18 Serum or plasma creatinine measurement (mass/volume) 0.82 mg/dL 0.60-1.30 Serum or plasma urea nitrogen/creatinine mass ratio 11 NRG Serum or plasma creatinine measurement with calculation of estimated glomerular filtration rate > NRG Serum or plasma glucose measurement (mass/volume) 316 mg/dL 70-105 Serum or plasma calcium measurement (mass/volume) 8.4 mg/dL 8.5-10.1 Serum or plasma total bilirubin measurement (mass/volume) 0.4 mg/dL 0.1-1.0 Serum or plasma alkaline phosphatase measurement (enzymatic activity/volume) 70 U/L 40-136 Serum or plasma aspartate aminotransferase measurement (enzymatic activity/ volume) 42 U/L 5-34 Serum or plasma alanine aminotransferase measurement (enzymatic activity/volume ) 38 U/L 0-55 Serum or plasma protein measurement (mass/volume) 5.8 g/dL 6.4-8.2 Serum or plasma albumin measurement (mass/volume) 3.5 g/dL 3.2-4.5 CALCIUM CORRECTED 8.8 mg/dL 8.5-10.1 PT panel in platelet poor plasma by coagulation assay - 12/01/18 07:30 Prothrombin time (PT) in platelet poor plasma by coagulation assay 14.4 s 12.2-14.7 INR in platelet poor plasma or blood by coagulation assay 1.1 0.8-1.4 Activated partial thromboplastin time (aPTT) in platelet poor plasma bycoagulation assay - 12/01/18 07:30 Activated partial thromboplastin time (aPTT) in platelet poor plasma bycoagulation assay 25 s 24-35 Bacterial blood culture - 12/01/18 07:30 Bacterial blood culture NG NRG Bacterial blood culture - 12/01/18 07:40 Bacterial blood culture NG NRG Arterial blood gas measurement - 12/01/18 08:57 Blood pCO2 47 mm[Hg] 35-45 Blood pO2 127 mm[Hg] 79-93 Arterial blood bicarbonate measurement (moles/volume) 21 mmol/L 23-27 Arterial blood base excess by calculation -5.0 mmol/L - 2.5-2.5 Arterial blood oxygen saturation measurement 99 % 94-100 * Inhaled oxygen flow rate 100% NRG Arterial blood pH measurement with patient temperature correction 7.27 7.37-7.43 Arterial blood carbon dioxide, total measurement (moles/volume) 22.5 mmol/L 21.0-31.0 Body site L RAD NRG Assessment of wrist artery patency prior to arterial puncture YES- POS NRG Setting of ventilation mode YES NRG Measurement of body temperature 97.2 NRG Methicillin resistant Staphylococcus aureus (MRSA) screening culture - 09:04 Methicillin resistant Staphylococcus aureus (MRSA) screening culture NEG NRG Sputum Gram stain - 12/01/18 09:10 Sputum Gram stain Many gram negative bacilli NRG Bacterial sputum culture - 12/01/18 09:10 FREE TEXT EXTERNAL PARSONS JARAMILLO SUSCEPTIBILTIY REPORTED NRG QUANTITY OF GROWTH Moderate Growth NRG FREE TEXT ENTRY 2 12/05/18 09:05 NRG Bacterial sputum culture [id number] NRG Serum or plasma lactate measurement (moles/volume) - 12/01/18 09:35 Serum or plasma lactate measurement (moles/volume) 1.04 mmol/L 0.50-2.00 Encounters ACCT No. Visit Date/Time Discharge Status Pt. Type Provider Facility Loc./Unit Complaint [id number] 11/04/2013 09:06:00 11/04/2013 23:59:59 CLS Outpatient SUSHMA MCRAE DO [id number] 05/27/2013 10:35:00 05/27/2013 23:59:59 [place] [id number] 05/22/2018 08:00:00 05/22/2018 23:59:59 CLS Outpatient Jefersontrinh [facility] [id number] 06/23/2017 08:45:00 Document Registration [id number] 12/01/2018 07:12:00 12/01/2018 12:32:00 DIS Emergency MARILIN TORRES, ZAIN Olson [facility] ER SOA [id number] 09/16/2018 08:11:00 09/16/2018 09:53:00 DIS Emergency JOYCELYN TORRES, TIGRE Elizabeth [facility] ER R LUNG PAIN;SOB [id number] 07/31/2018 14:58:00 07/31/2018 23:59:59 CLS Preadmit SAMM BANGURAINE E E LEARNING MANAGER [facility] RAD TOBACCO USE,COPD [id number] 07/28/2018 09:30:00 07/28/2018 23:59:59 CLS Outpatient SAMM BANGURAINE E E LEARNING MANAGER [facility] RAD J43.9 COPD [id number] 06/24/2018 11:53:00 06/24/2018 23:59:59 CLS Outpatient JONNATHAN TORRES, SLCIK Perez [facility] RAD PERSISTENT HEADACHE, LEFT SIDE [id number] 04/16/2018 08:50:00 04/16/2018 23:59:59 CLS Outpatient WILLEM SOBIA E E LEARNING MANAGER [facility] RAD J18.9,J43.9 [id number] 08/04/2017 09:15:00 08/04/2017 23:59:59 CLS Outpatient WILLEM SOBIA E E LEARNING MANAGER [facility] RAD J43.9 COPD [id number] 04/11/2017 11:07:00 04/11/2017 23:59:59 CLS Outpatient WILLEM SOBIA E E LEARNING MANAGER [facility] RAD J18.9,Z72.0,R09.02 [id number] 08/26/2016 08:11:00 08/26/2016 23:59:59 CLS Outpatient WILLEM SOBIA E E LEARNING MANAGER [facility] RAD COPD,TOBACCO USE, LUNG NODULE SEEN ON IMAGING STUD [id number] 07/08/2016 17:16:00 07/08/2016 21:14:00 DIS Emergency SAUNDRA MEHTA [facility] ER SOA/LUNG INFECTION [id number] 06/29/2016 08:52:00 06/29/2016 10:01:00 DIS Emergency JING TORRES, FRAN Mcneill [facility] ER FEVER/GENERALIZED ILLNESS [id number] 07/19/2015 09:41:00 07/19/2015 23:59:59 CLS Outpatient SOBIA BANGURA APRN [facility] RAD COPD [id number] 04/05/2015 07:21:00 04/05/2015 12:10:00 DIS Outpatient BRANDEE MARQUEZ MD [facility] SDC SCREENING [id number] 03/30/2015 08:33:00 03/30/2015 23:59:59 CLS Outpatient BRANDEE MARQUEZ MD [facility] PREOP SCREENING [id number] 08/15/2014 08:07:00 08/15/2014 23:59:59 CLS Outpatient EBENEZER BEVERLY DO [facility] RAD COPD,DYSPNEA [id number] 08/08/2014 08:29:00 08/08/2014 23:59:59 CLS Outpatient EBENEZER BEVERLY DO [facility] LAB COPD [id number] 08/02/2014 08:00:00 08/02/2014 23:59:59 CLS Preadmit EBENEZER BEVERLY DO [facility] PULM COPD,PALPITATIONS, DYSPNEA [id number] 07/19/2014 08:30:00 08/01/2014 00:01:00 DIS Outpatient EBENEZER BEVERLY DO [facility] PULM COPD,PALPITATIONS, DYSPNEA [id number] 05/04/2014 07:06:00 05/04/2014 23:59:59 CLS Outpatient EBENEZER BEVERLY DO [facility] RT COPD,DYSPNEA [id number] 04/15/2014 12:26:00 04/18/2014 11:03:00 DIS Inpatient LATANYA ALFREDO MD [facility] 4TH SWB,LOW BLOOD PRESSURE [id number] 04/10/2014 15:53:00 04/15/2014 12:10:00 DIS Inpatient LATANYA ALFREDO MD [facility] CSD L SIDED PLEURITIC CHEST PAIN [id number] 09/29/2012 08:54:00 12/28/2012 00:01:00 DIS Outpatient EKAT MARLOW [facility] CARD PALPITATIONS,PVC'S [id number] 08/17/2014 14:13:00 Document Registration [id number] 12/29/2012 09:00:00 Document Registration [id number] 09/28/2012 10:15:00 Document Registration [id number] 03/24/2012 10:55:00 Document Registration [id number] 03/23/2012 13:48:00 Document Registration [id number] 10/14/2011 07:32:00 Document Registration [id number] 07/04/2009 08:18:00 Document Registration [id number] 06/15/2009 08:43:00 Document Registration [id number] 03/22/2009 08:09:00 Document Registration [email or web address] 04/05/2015 07:24:02 ACT Document Registration [id number] 03/13/2017 15:07:00 Document Registration
--- NOTE | 2019-01-01 09:34 | NUR ---
DR LARES ON THE PHONE WITH SIRIA.
[2019-01-01 09:38] LABS: BASOPHILS # (AUTO) 0.1 10^3/uL (0.0-0.1); BASOPHILS % (AUTO) 1 % (0-10); EOSINOPHILS # (AUTO) 0.6 10^3/uL (0.0-0.3); EOSINOPHILS % (AUTO) 10 % (0-10); HEMATOCRIT 41 % (35-52); HEMOGLOBIN 13.7 G/DL (11.5-16.0); LYMPHOCYTES # (AUTO) 0.7 X 10^3 (1.0-4.0); LYMPHOCYTES % (AUTO) 11 % (12-44); MEAN CORPUSCULAR HEMOGLOBIN 34 PG (25-34); MEAN CORPUSCULAR HGB CONC 33 G/DL (32-36); MEAN CORPUSCULAR VOLUME 101 FL (80-99); MEAN PLATELET VOLUME 8.7 FL (7.4-10.4); MONOCYTES # (AUTO) 0.5 X 10^3 (0.0-1.0); MONOCYTES % (AUTO) 9 % (0-12); NEUTROPHILS # (AUTO) 4.4 X 10^3 (1.8-7.8); NEUTROPHILS % (AUTO) 70 % (42-75); PLATELET COUNT 391 10^3/uL (130-400); RED CELL DISTRIBUTION WIDTH 12.5 % (10.0-14.5); WHITE BLOOD COUNT 6.3 10^3/uL (4.3-11.0)
--- NOTE | 2019-01-01 09:47 | Diagnostic Imaging Report ---
INDICATION: Increasing shortness of air. TIME OF EXAM: 09:27 a.m. Correlation is made with prior study 12/01/2018. Opacity in the left upper lobe with retraction of the left hilum is again seen. Patient has developed some infiltrate in the left lung base with some consolidation and obscuration of left hemidiaphragm. A right-sided pneumothorax is noted. This is in the right apex as well as along the right chest wall and right base. A right chest tube has tip overlying the right upper chest. Small caliber chest tube noted on prior radiograph has been removed. Previously noted endotracheal tube and nasogastric tube have been removed. Right IJ line has Been removed. IMPRESSION: 1. Right-sided pneumothorax. There is a right chest tube in place. 2. Development of left basilar infiltrate consistent with pneumonia. Dictated by: Dictated on workstation # [id number]
[2019-01-01 09:51] LABS: ALANINE AMINOTRANSFERASE 24 U/L (0-55); ALBUMIN 3.9 GM/DL (3.2-4.5); ALKALINE PHOSPHATASE 102 U/L (40-136); BILIRUBIN,TOTAL 0.4 MG/DL (0.1-1.0); BUN/CREATININE RATIO 11; CALCIUM 9.8 MG/DL (8.5-10.1); CARBON DIOXIDE 26 MMOL/L (21-32); CHLORIDE 96 MMOL/L (98-107); CREATININE SERUM 0.56 MG/DL (0.60-1.30); GFR ESTIMATED > 60; GLUCOSE 78 MG/DL (70-105); SODIUM 138 MMOL/L (135-145); TOTAL PROTEIN 6.7 GM/DL (6.4-8.2)
[2019-01-01 10:03] LABS: INR 0.9 (0.8-1.4); PROTHROMBIN TIME PATIENT 12.7 SEC (12.2-14.7)
[2019-01-01] MEDS ORDERED: NS 250 ML (IVPB) BAG IV ONE (10:15)
[2019-01-01] MEDS ORDERED: IOHEXOL 350 MG/ML 100 ML (OMNIPAQUE 350) VIAL IV ONE (10:15)
[2019-01-01] MEDS ORDERED: HOLD METFORMIN - RECEIVED CONTRAST 20 ML VIAL IV SCH (10:15)
--- NOTE | 2019-01-01 10:32 | ED Respiratory ---
General Chief Complaint: Respiratory Problems Stated Complaint: SOA Nursing Triage Note: ARRIVED VIA WC TO ROOM 10. FAMILY VERY ANXIOUS WITH MULTIPLE PEOPLE TRYING TO TALK. PT STATES SHE STARTED TO BECOME SOA A FEW DAYS AGO ET WAS TOLD BY DR SANTILLAN OFFICE YESTERDAY THAT THERE WAS NO ICU BEDS AVAILABLE SO FAMILY TOOK HER TO [facility] WHERE SHE WAS SENT HOME LAST NIGHT. PT STATES WITH ANY EXERTION HER PULSE OX DROPS TO IN THE 60'S. PT HAS A CHEST TUBE RIGHT CHEST FROM RECENT ER VISIT WITH TRANSFER TO [facility] ABOUT A MONTH AGO. Source: patient, family Exam Limitations: no limitations History of Present Illness Date Seen by Provider: January 01, 2019 Time Seen by Provider: 10:28 Initial Comments This 73-year-old white female presents with increasing respiratory distress. The patient has had a prolonged course of a right pneumothorax requiring thoracostomy. The patient became increasingly short of breath in the last 24 hours precipitating her presentation and Xeroform this morning. The patient was seen in [place] yesterday and a chest x-ray was performed which apparently did not demonstrate acute pathology and the patient was discharged. Her shortness of breath however has progressed particularly with any activity precipitating her presentation to the emergency department today on the recommendation of Dr. Roca. Patient denies productive cough or hemoptysis. She denies significant fever or chill. She denies associated headache stiff neck, nausea or vomiting, dysuria or frequency. Patient suffers from bullous emphysema. She has had a previous partial left pneumonectomy. Allergies and Home Medications Allergies Coded Allergies: No Known Drug Allergies (Verified , 04/05/15) Home Medications Albuterol Sulfate 18 Gm Hfa.aer.ad, 18 GM IH DAILY, (Reported) Aspirin 325 Mg Tab, 325 MG PO HS, (Reported) Cyanocobalamin 1,000 Mcg/Ml Vial, 1,000 MG IM MONTHLY PRN for WEAKNESS, (Reported) Levofloxacin 500 Mg Tablet, 500 MG PO DAILY Prescribed by: SAUNDRA CARTER on 07/08/162107 Prednisone 20 Mg Tab, 60 MG PO UD 3 tab po daily x7d, then 2 tabs po daily x7d, then 1 tab daily x7d Prescribed by: SAUNDRA CARTER on 07/08/162102 [Breo] , 1 PUFF INH DAILY PRN for SHORTNESS OF BREATH, (Reported) Patient Home Medication List Home Medication List Reviewed: Yes Review of Systems Review of Systems Constitutional: weakness EENTM: No ear pain, No throat pain Respiratory: cough Cardiovascular: no symptoms reported Gastrointestinal: No abdominal pain, No nausea, No vomiting Genitourinary: No dysuria, No frequency : No Musculoskeletal: No no symptoms reported, No muscle weakness Skin: No no symptoms reported, No rash Psychiatric/Neurological: No Symptoms Reported Hematologic/Lymphatic: No Symptoms Reported Immunological/Allergic: no symptoms reported Past Vrpnvkp-Zcvnro-Qthokb Hx Past Med/Social Hx: Reviewed Nursing Past Med/Soc Hx Patient Social History Alcohol Beverage of Choice: Wine Type Used: Cigarettes Former Smoker, Quit: Dec 06, 2013 Recent Foreign Travel: No Contact w/Someone Who Travel: No Recent Infectious Disease Expo: No Recent Hopitalizations: No Immunizations Up To Date Date of Pneumonia Vaccine: Nov 03, 2014 Date of Influenza Vaccine: May 18, 2016 Past Medical History Surgeries: Yes Lobectomy Respiratory: Yes (COPD, PNEUMOTHORAX) COPD, Emphysema Cardiac: Yes Neurological: No Reproductive Disorders: No Sexually Transmitted Disease: No HIV/AIDS: No Genitourinary: No Gastrointestinal: No Musculoskeletal: No Endocrine: No Hearing Impairment: Denies Cancer: No Psychosocial: No Integumentary: No Blood Disorders: No Adverse Reaction/Blood Tranf: No Family Medical History Cardiovascular disease 19 MOTHER G8 SISTER Completed stroke 19 MOTHER Parkinson's disease 19 FATHER No Pertinent Family Hx Physical Exam Vital Signs - First Documented 01/01/19 09:13 Temp 97.9 Pulse 94 Resp 18 B/P (MAP) 133/101 (112) Pulse Ox 96 O2 Delivery Nasal Cannula O2 Flow Rate 5.00 Capillary Refill : Less Than 3 Seconds Height: 5'1.00" Weight: 115lbs. 3.0oz. 52.675527ya; 17.92 BMI Method:Estimated General Appearance: mild distress, cachetic Eyes: Bilateral Eye Normal Inspection HEENT: normal ENT inspection Neck: full range of motion, supple Respiratory: decreased breath sounds Cardiovascular: regular rate, rhythm Gastrointestinal: normal bowel sounds, soft Extremities: normal range of motion, non-tender, normal inspection Neurologic/Psychiatric: no motor/sensory deficits, alert, normal mood/affect, oriented x 3 Skin: normal color, warm/dry Focused Exam Lactate Level 01/01/19 10:42: Lactic Acid Level Laboratory Tests Test 01/01/19 10:42 Procedures/Interventions Date of ETT Placement: Dec 01, 2018 Time of ETT Placement: 711 Progress/Results/Core Measures Suspected Sepsis Recent Fever Within 48 Hours: No Infection Criteria Present: Suspected New Infection New/Unexplained Altered Menta: No Sepsis Screen: No Definite Risk SIRS Temperature:97.9 Pulse: 94 Respiratory Rate: 18 Laboratory Tests 01/01/19 09:24: White Blood Count 6.3 Blood Pressure 133 /101 Mean: 112 01/01/19 10:42: Laboratory Tests 01/01/19 09:24: Creatinine 0.56L, INR Comment 0.9, Platelet Count 391, Total Bilirubin 0.4 Results/Orders Lab Results Laboratory Tests Test 01/01/19 09:24 01/01/19 10:42 Range/Units White Blood Count 6.3 4.3-11.0 10^3/uL Red Blood Count 4.08 L 4.35-5.85 10^6/uL Hemoglobin 13.7 11.5-16.0 G/DL Hematocrit 41 35-52 % Mean Corpuscular Volume 101 H 80-99 FL Mean Corpuscular Hemoglobin 34 25-34 PG Mean Corpuscular Hemoglobin Concent 33 32-36 G/DL Red Cell Distribution Width 12.5 10.0-14.5 % Platelet Count 391 130-400 10^3/uL Mean Platelet Volume 8.7 7.4-10.4 FL Neutrophils (%) (Auto) 70 42-75 % Lymphocytes (%) (Auto) 11 L 12-44 % Monocytes (%) (Auto) 9 0-12 % Eosinophils (%) (Auto) 10 0-10 % Basophils (%) (Auto) 1 0-10 % Neutrophils # (Auto) 4.4 1.8-7.8 X 10^3 Lymphocytes # (Auto) 0.7 L 1.0-4.0 X 10^3 Monocytes # (Auto) 0.5 0.0-1.0 X 10^3 Eosinophils # (Auto) 0.6 H 0.0-0.3 10^3/uL Basophils # (Auto) 0.1 0.0-0.1 10^3/uL Prothrombin Time 12.7 12.2-14.7 SEC INR Comment 0.9 0.8-1.4 Sodium Level 138 135-145 MMOL/L Potassium Level 4.0 3.6-5.0 MMOL/L Chloride Level 96 L 98-107 MMOL/L Carbon Dioxide Level 26 21-32 MMOL/L Anion Gap 16 H 5-14 MMOL/L Blood Urea Nitrogen 6 L 7-18 MG/DL Creatinine 0.56 L 0.60-1.30 MG/DL Estimat Glomerular Filtration Rate > 60 BUN/Creatinine Ratio 11 Glucose Level 78 70-105 MG/DL Calcium Level 9.8 8.5-10.1 MG/DL Corrected Calcium 9.9 8.5-10.1 MG/DL Total Bilirubin 0.4 0.1-1.0 MG/DL Aspartate Amino Transf (AST/SGOT) 26 5-34 U/L Alanine Aminotransferase (ALT/SGPT) 24 0-55 U/L Alkaline Phosphatase 102 40-136 U/L Total Protein 6.7 6.4-8.2 GM/DL Albumin 3.9 3.2-4.5 GM/DL My Orders Orders - DEJAH LARES MD Chest 1 View, Ap/Pa Only (01/01/19 09:26) Cbc With Automated Diff (01/01/19 09:33) Comprehensive Metabolic Panel (01/01/19 09:33) Ct Angio Chest W (01/01/19 09:36) Protime With Inr (01/01/19 09:47) I-Stat Bedside Testing (01/01/19 09:57) Iohexol Injection (Omnipaque 350 Mg/Ml 1 (01/01/19 10:15) Received Contrast (Hold Metformin- Contr (01/01/19 10:15) Ns (Ivpb) (Sodium Chloride 0.9%) (01/01/19 10:15) Blood Culture (01/01/19 10:33) Lactic Acid Analyzer (01/01/19 10:33) Vancomycin Injection (Vancomycin Injecti (01/01/19 11:00) Piperacillin/Tazobactam (Bulk) (Zosyn In (01/01/19 11:00) Medications Given in ED Current Medications Medications Dose Ordered Sig/Mark Route Start Time Stop Time Status Last Admin Dose Admin Iohexol 100 ml ONCE ONCE IV 01/01/19 10:15 01/01/19 10:16 DC 01/01/19 10:19 100 ML Vital Signs/I&O 5/17/19 5/17/19 09:13 09:35 Temp 97.9 Pulse 94 Resp 18 B/P (MAP) 133/101 (112) Pulse Ox 96 O2 Delivery Nasal Cannula Nasal Cannula O2 Flow Rate 5.00 5.00 Capillary Refill : Less Than 3 Seconds Blood Pressure Mean: 112 Progress Note : Time: 11:00 Progress Note The patient's chest x-ray demonstrated a right pneumothorax and a left sided pneumonia. I initiated Zosyn and vancomycin telephone consultation with Dr. Royer Roca. Dr. De Santiago was kind enough to admit the patient. Departure Communication (Admissions) Time/Spoke to Admitting Phy: 11:05 Dr. De Santiago Time/Spoke to Consulting Phy: 11:05 Dr. Roca Impression Primary Impression: Left upper lobe pneumonia Qualified Codes: J18.1 - Lobar pneumonia, unspecified organism Disposition: ADMITTED INPATIENT Condition: Improved Admissions Decision to Admit Reason: Admit from ER (General) Decision to Admit/Date: January 01, 2019 Time/Decision to Admit Time: 11:06 Departure-Patient Inst. Referrals: SLICK DE SANTIAGO MD (PCP/Family) Primary Care Physician DEJAH LARES MD January 01, 2019 10:32
[2019-01-01] MEDS ORDERED: VANCOMYCIN INJECTION 1,000 MG in NS (IVPB) 250 ML IV SCH (11:00)
[2019-01-01] MEDS ORDERED: PIPERACILLIN/TAZOBACTAM (BULK) 4.5 GM in NS (IVPB) 100 ML IV ONE (11:00)
--- NOTE | 2019-01-01 11:01 | Diagnostic Imaging Report ---
PROCEDURE: CT angiography of the chest with contrast. TECHNIQUE: Multiple contiguous axial images were obtained through the chest after uneventful bolus administration of intravenous contrast. 2D reconstructed CTA MIP acquisitions were also performed. Auto Exposure Controls were utilized during the CT exam to meet ALARA standards for radiation dose reduction. INDICATION: Shortness of breath and decreasing oxygen saturation. Correlation is made with CT chest from 07/28/2018. There is retraction of left hilum. Central pulmonary arteries are widely patent without filling defect. The lobar arteries are widely patent. There is questionable filling defects identified in subsegmental branches in the right lower and left lower lobe. The thoracic aorta is normal caliber. No dissection is seen. There is no pericardial fluid. There is trace left pleural effusion noted. Right-sided hydropneumothorax is seen. There is a moderate-sized pneumothorax on the right side. There is a chest tube with tip in the upper posterior pleural space on the right. Severe centrilobular emphysematous changes throughout both lungs are seen. There is chronic opacity in the left apex. There are some patchy infiltrates in the left lower lobe. Left hilum is retracted. Upper abdomen is unremarkable. IMPRESSION: 1. No central or lobar pulmonary emboli are present. There are questionable small filling defects involving subsegmental branches in the lower lobes bilaterally. No aortic dissection is seen. 2. Bilateral pleural effusions, right greater. There is also moderate sized right pneumothorax present. There is a right chest tube in place. 3. Severe centrilobular emphysematous changes and chronic left apical thickening and left hilar retraction. There are some patchy infiltrates in the left lower lobe. Dictated by: Dictated on workstation # [id number]
--- NOTE | 2019-01-01 11:04 | NUR ---
PHARMACY CONTACTED FOR BLOOD DRAW.
--- NOTE | 2019-01-01 11:14 | NUR ---
LUNCH ORDERED FOR PT.
--- NOTE | 2019-01-01 11:45 | NUR ---
LUNCH TAKEN TO PT.
--- NOTE | 2019-01-01 12:15 | NUR ---
PT ATE A GOOD LUNCH.
--- NOTE | 2019-01-01 12:38 | NUR ---
ASSISTED PT TO SITTING ON A PILLOW PER HER REQUEST ET PT BECAME VERY WINDED ET PULS OX DROPPED TO THE 70'S.
--- NOTE | 2019-01-01 13:18 | NUR ---
PTS RONR NOTIFED BY PHONE OF BEING ADMITTED TO ROOM 408.
--- OUTSIDE RECORDS SUMMARY | 2019-01-01 13:23 | XMS REPORT | Continuity of Care Document ---
Author Organization Unknown Address Unknown Allergies Active Description Code Type Severity Reaction Onset Reported/Identified Relationship to Patient Clinical Status Yes No Known Drug Allergies [id number] Drug Allergy Unknown N/A 04/05/2015 Medications There is no data. Problems Date Dx Coded Attending Type Code Diagnosis Diagnosed By 12/28/2012 EKTA MARLOW Ot 427.69 PREMATURE BEATS NEC 12/28/2012 EKTA MARLOW Ot 785.1 PALPITATIONS 05/27/2013 MCRAE WESLEY ALEJANDROA K V04.81 FLU SHOT 05/27/2013 MCRAE WESLEY ALEJANDROA K V04.81 FLU SHOT 11/04/2013 MCRAE WESLEY ALEJANDROA K V03.82 PPV23 (PNEUMOVAX) DX [...] SIRIA EBENEZER ALEJANDRO Ot 786.09 04/05/2015 BRANDEE MARQUEZ MD Ot [...] UNSPECIFIED 06/29/2016 FRAN CH MD Ot Z79.82 SENIOR LIVING (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 06/29/2016 FRAN CH MD Ot Z87.891 PERSONAL HISTORY OF NICOTINE DEPENDENCE 07/08/2016 SAUNDRA MEHTA Ot J18.9 PNEUMONIA, UNSPECIFIED ORGANISM 07/08/2016 SAUNDRA MEHTA Ot J44.9 CHRONIC OBSTRUCTIVE PULMONARY DISEASE, U 07/08/2016 SAUNDRA MEHTA Ot Z79.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 07/08/2016 SAUNDRA MEHTA Ot Z79.899 OTHER EVENT DECORATOR AND DESIGNER (CURRENT) DRUG THERAPY 07/08/2016 SAUNDRA MEHTA Ot Z87.891 PERSONAL HISTORY OF NICOTINE DEPENDENCE 07/09/2016 SAUNDRA MEHTA Ot J18.9 PNEUMONIA, UNSPECIFIED ORGANISM 07/09/2016 SAUNDRA MEHTA Ot J44.9 CHRONIC OBSTRUCTIVE PULMONARY DISEASE, U 07/09/2016 SAUNDRA MEHTA Ot Z79.82 SENIOR LIVING (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 07/09/2016 SAUNDRA MEHTA Ot Z79.899 OTHER EVENT DECORATOR AND DESIGNER (CURRENT) DRUG THERAPY 07/09/2016 SAUNDRA MEHTA Ot Z87.891 PERSONAL HISTORY OF NICOTINE DEPENDENCE 08/30/2016 SOBIA BANGURA MANAGER SPECIALTY Ot J18.9 PNEUMONIA, UNSPECIFIED ORGANISM 08/30/2016 SOBIA BANGURA MANAGER SPECIALTY Ot J44.0 CHRONIC OBSTRUCTIVE PULMON DISEASE W ACU 08/30/2016 SOBIA BANGURA MANAGER SPECIALTY Ot J44.1 CHRONIC OBSTRUCTIVE PULMONARY DISEASE W 08/30/2016 SOBIA BANGURA MANAGER SPECIALTY Ot R09.02 HYPOXEMIA 08/30/2016 SOBIA BANGURA MANAGER SPECIALTY Ot R91.1 SOLITARY PULMONARY NODULE 08/30/2016 SOBIA BANGURA MANAGER SPECIALTY Ot Z72.0 TOBACCO USE 09/27/2016 SOBIA BANGURA MANAGER SPECIALTY Ot J18.9 PNEUMONIA, UNSPECIFIED ORGANISM 09/27/2016 SOBIA BANGURA MANAGER SPECIALTY Ot J44.0 CHRONIC OBSTRUCTIVE PULMON DISEASE W ACU 09/27/2016 SOBIA BANGURA MANAGER SPECIALTY Ot J44.1 CHRONIC OBSTRUCTIVE PULMONARY DISEASE W 09/27/2016 SOBIA BANGURA MANAGER SPECIALTY Ot R09.02 HYPOXEMIA 09/27/2016 SOBIA BANGURA MANAGER SPECIALTY Ot R91.1 SOLITARY PULMONARY NODULE 09/27/2016 SOBIA BANGURA MANAGER SPECIALTY Ot Z72.0 TOBACCO USE 05/02/2017 SOBIA BANGURA MANAGER SPECIALTY Ot J84.9 INTERSTITIAL PULMONARY DISEASE, UNSPECIF 05/02/2017 SOBIA BANGURA MANAGER SPECIALTY Ot R09.02 HYPOXEMIA 05/02/2017 SOBIA BANGURA MANAGER SPECIALTY Ot Z72.0 TOBACCO USE 07/31/2017 Ot 427.69 [...] Ot 786.09 RESPIRATORY ABNORM NEC 04/03/2018 SIRIATSERING AELJANDRO EBENEZER M Ot [address] OBSTRUCT [...] V72.84 EXAM PRE-OPERATIVE NOS 04/03/2018 SOBIA BANGURA MANAGER SPECIALTY Ot J44.1 CHRONIC OBSTRUCTIVE PULMONARY DISEASE W 04/03/2018 SOBIA BANGURA MANAGER SPECIALTY Ot J18.9 PNEUMONIA, UNSPECIFIED ORGANISM 04/03/2018 SOBIA BANGURA MANAGER SPECIALTY Ot J44.0 CHRONIC OBSTRUCTIVE PULMON DISEASE W ACU 04/03/2018 SOBIA BANGURA MANAGER SPECIALTY Ot J44.1 CHRONIC OBSTRUCTIVE PULMONARY DISEASE W 04/03/2018 SOBIA BANGURA MANAGER SPECIALTY Ot R09.02 HYPOXEMIA 04/03/2018 SOBIA BANGURA MANAGER SPECIALTY Ot R91.1 SOLITARY PULMONARY NODULE 04/03/2018 SOBIA BANGURA MANAGER SPECIALTY Ot Z72.0 TOBACCO USE 04/03/2018 SOBIA BANGURA MANAGER SPECIALTY Ot J84.9 INTERSTITIAL PULMONARY DISEASE, UNSPECIF 04/03/2018 SOBIA BANGURA MANAGER SPECIALTY Ot R09.02 HYPOXEMIA 04/03/2018 SOBIA BANGURA MANAGER SPECIALTY Ot Z72.0 TOBACCO USE 04/03/2018 SOBIA BANGURA MANAGER SPECIALTY Ot J43.9 EMPHYSEMA, UNSPECIFIED 04/03/2018 SOBIA BANGURA MANAGER SPECIALTY Ot Z98.890 OTHER SPECIFIED POSTPROCEDURAL STATES 04/16/2018 [...] V72.84 EXAM PRE-OPERATIVE NOS 04/16/2018 SOBIA BANGURA MANAGER SPECIALTY Ot J44.1 CHRONIC OBSTRUCTIVE PULMONARY DISEASE W 04/16/2018 SOBIA BANGURA MANAGER SPECIALTY Ot J18.9 PNEUMONIA, UNSPECIFIED ORGANISM 04/16/2018 SOBIA BANGURA MANAGER SPECIALTY Ot J44.0 CHRONIC OBSTRUCTIVE PULMON DISEASE W ACU 04/16/2018 SOBIA BANGURA MANAGER SPECIALTY Ot J44.1 CHRONIC OBSTRUCTIVE PULMONARY DISEASE W 04/16/2018 SOBIA BANGURA MANAGER SPECIALTY Ot R09.02 HYPOXEMIA 04/16/2018 SOBIA BANGURA MANAGER SPECIALTY Ot R91.1 SOLITARY PULMONARY NODULE 04/16/2018 SOBIA BANGURA MANAGER SPECIALTY Ot Z72.0 TOBACCO USE 04/16/2018 SOBIA BANGURA MANAGER SPECIALTY Ot J84.9 INTERSTITIAL PULMONARY DISEASE, UNSPECIF 04/16/2018 SOBIA BANGURA MANAGER SPECIALTY Ot R09.02 HYPOXEMIA 04/16/2018 SOBIA BANGURA MANAGER SPECIALTY Ot Z72.0 TOBACCO USE 04/16/2018 SOBIA BANGURA MANAGER SPECIALTY Ot J43.9 EMPHYSEMA, UNSPECIFIED 04/16/2018 SOBIA BANGURA MANAGER SPECIALTY Ot Z98.890 OTHER SPECIFIED POSTPROCEDURAL STATES 04/17/2018 SOBIA BANGURA APRN Ot J18.9 PNEUMONIA, UNSPECIFIED ORGANISM 04/17/2018 SOBIA BANGURA APRN Ot J44.9 CHRONIC OBSTRUCTIVE PULMONARY DISEASE, U 05/06/2018 SOBIA BANGURA MANAGER SPECIALTY Ot J18.9 PNEUMONIA, UNSPECIFIED ORGANISM 05/06/2018 SOBIA BANGURA MANAGER SPECIALTY Ot J44.9 CHRONIC OBSTRUCTIVE PULMONARY DISEASE, U 06/29/2018 JONNATHAN TORRES, SLICK Perez Ot I67.82 CEREBRAL ISCHEMIA 07/30/2018 SOBIA BANGURA MANAGER SPECIALTY Ot J44.1 CHRONIC OBSTRUCTIVE PULMONARY DISEASE W 07/30/2018 SOBIA BANGURA APRN Ot Z72.0 TOBACCO USE 07/30/2018 SOBIA BANGURA MANAGER SPECIALTY Ot Z98.890 OTHER SPECIFIED POSTPROCEDURAL STATES 08/20/2018 SOBIA BANGURA MANAGER SPECIALTY Ot J44.1 CHRONIC OBSTRUCTIVE PULMONARY DISEASE W 08/20/2018 SOBIA BANGURA APRN Ot Z72.0 TOBACCO USE 08/20/2018 SOBIA BANGURA APRN Ot Z98.890 OTHER SPECIFIED POSTPROCEDURAL STATES 09/16/2018 JOYCELYN TORRES, TIGRE Elizabeth Ot J43.9 EMPHYSEMA, UNSPECIFIED 09/16/2018 TIGRE HIRSCH MD Ot R07.81 PLEURODYNIA 09/16/2018 TIGRE HIRSCH MD Ot R07.89 OTHER CHEST PAIN 09/16/2018 TIGRE HIRSCH MD Ot Z79.51 SENIOR LIVING (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 OF INHALED STERO 09/16/2018 TIGRE HIRSCH MD Ot Z79.52 SENIOR LIVING (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 OF SYSTEMIC STER 09/16/2018 TIGRE HIRSCH MD Ot Z79.82 SENIOR LIVING (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 09/16/2018 TIGRE HIRSCH [...] PAIN 09/18/2018 TIGRE HIRSCH MD Ot Z79.51 SENIOR LIVING (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 OF INHALED STERO 09/18/2018 TIGRE HIRSCH MD Ot Z79.52 SENIOR LIVING (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 OF SYSTEMIC STER 09/18/2018 TIGRE HIRSCH MD Ot Z79.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 09/18/2018 TIGRE HIRSCH [...] BREATH 12/01/2018 ZAIN GASTON MD Ot Z79.52 SENIOR LIVING (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 OF SYSTEMIC STER 12/01/2018 ZAIN GASTON MD Ot Z79.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 12/01/2018 ZAIN GASTON MD Ot Z82.49 FAMILY HX OF ISCHEM HEART DIS AND OTH DI 12/01/2018 ZAIN GASTON MD Ot Z87.891 PERSONAL HISTORY OF NICOTINE DEPENDENCE 12/01/2018 ZAIN GASTON MD Ot Z90.2 ACQUIRED ABSENCE OF LUNG [PART OF] Procedures Code Description Performed By Performed On G0008 FLU ADMINISTRATION (MEDICARE ONLY) 05/27/2013 Results Test Result Range Complete [...] Automated erythrocyte mean corpuscular hemoglobin concentration measurement (mass/volume) 33 g/dL 32-36 Automated erythrocyte distribution width ratio 13.1 % 10.0- 14.5 Automated blood platelet count (count/volume) 229 10*3/uL [...] Blood monocytes automated count (number/volume) 1.0 10*3 0.0- 1.0 Automated eosinophil count 0.0 10*3/uL 0.0-0.3 Automated [...] Automated erythrocyte mean corpuscular hemoglobin concentration measurement (mass/volume) 33 g/dL 32-36 Automated erythrocyte distribution width ratio 13.2 % 10.0- 14.5 Automated blood platelet count (count/volume) 428 10*3/uL [...] Blood monocytes automated count (number/volume) 0.6 10*3 0.0- 1.0 Automated eosinophil count 0.0 10*3/uL 0.0-0.3 Automated [...] measurement in platelet poor plasma (mass/volume) - 07/08/16 18:05 Fibrin D-dimer FEU measurement in platelet [...] Serum or plasma aspartate aminotransferase measurement (enzymatic activity/volume) 25 U/L 5-34 Serum or plasma alanine aminotransferase measurement (enzymatic activity/volume) 54 U/L 0-55 Serum or plasma protein measurement (mass/volume) 6.9 g/dL 6.4-8.2 Serum or plasma albumin measurement (mass/volume) 3.6 g/dL 3.2-4.5 Serum or plasma troponin i.cardiac measurement (mass/volume) - 07/08/16 18:05 Serum or plasma troponin i.cardiac measurement (mass/volume) < ng/mL <0.30 Complete urinalysis with reflex to culture - 07/08/16 19:32 Urine color determination YELLOW NRG Urine clarity determination SLIGHTLY CLOUDY NRG Urine pH measurement by test strip 8 5-9 Specific gravity of urine by test strip 1.015 1.016-1.022 Urine protein assay by test strip, semi-quantitative [...] sediment leukocyte count by microscopy (number/high power field) [HPF] NRG Bacteria detection in urine sediment [...] Automated erythrocyte mean corpuscular hemoglobin concentration measurement (mass/volume) 33 g/dL 32-36 Automated erythrocyte distribution width ratio 14.1 % 10.0- 14.5 Automated blood platelet count (count/volume) 260 10*3/uL [...] Blood monocytes automated count (number/volume) 0.6 10*3 0.0- 1.0 Automated eosinophil count 0.2 10*3/uL 0.0-0.3 Automated [...] Serum or plasma aspartate aminotransferase measurement (enzymatic activity/volume) 46 U/L 5-34 Serum or plasma alanine aminotransferase measurement (enzymatic activity/volume) 41 U/L 0-55 Serum or plasma protein measurement (mass/volume) 8.0 g/dL 6.4-8.2 Serum or plasma albumin measurement (mass/volume) 4.4 g/dL 3.2-4.5 CALCIUM CORRECTED 9.4 mg/dL 8.5-10.1 Fibrin D-dimer FEU measurement in platelet poor plasma (mass/volume) - 09/16/18 08:22 Fibrin D-dimer FEU measurement in platelet poor plasma (mass/volume) 0.41 ug/mL 0.00-0.49 Arterial blood gas measurement - 12/01/18 07:20 Blood pCO2 52 mm[Hg] 35-45 Blood pO2 241 mm[Hg] 79-93 Arterial blood bicarbonate measurement (moles/volume) 21 mmol/L 23-27 Arterial blood base excess by calculation -5.1 mmol/L -2.5-2.5 Arterial blood oxygen saturation measurement 100 % 94-100 * Inhaled oxygen flow rate 100% NRG Arterial blood pH measurement with patient temperature correction 7.23 7.37-7.43 Arterial blood carbon dioxide, total measurement (moles/volume) 23.0 mmol/L 21.0-31.0 Body site R WRIST NRG Assessment of wrist artery patency prior to arterial puncture YES-POS NRG Setting of ventilation mode YES NRG Measurement of body temperature 97.2 NRG Complete urinalysis with reflex to culture - 12/01/18 07:25 Urine color determination YELLOW NRG Urine clarity determination SLIGHTLY CLOUDY NRG Urine pH measurement by test strip 5 5-9 Specific gravity of urine by test strip 1.025 1.016-1.022 Urine protein assay by test strip, semi-quantitative [...] sediment leukocyte count by microscopy (number/high power field) RARE NRG Bacteria detection in urine sediment [...] Automated erythrocyte mean corpuscular hemoglobin concentration measurement (mass/volume) 34 g/dL 32-36 Automated erythrocyte distribution width ratio 12.4 % 10.0- 14.5 Automated blood platelet count (count/volume) 253 10*3/uL [...] Blood monocytes automated count (number/volume) 0.5 10*3 0.0- 1.0 Automated eosinophil count 0.2 10*3/uL 0.0-0.3 Automated blood basophil count (count/volume) 0.0 10*3/uL 0.0-0.1 Blood lactic acid measurement (moles/volume) - 12/01/18 07:30 Blood lactic acid measurement (moles/volume) 2.54 mmol/L 0.50- 2.00 Comprehensive metabolic panel - 12/01/18 07:30 Serum [...] Serum or plasma aspartate aminotransferase measurement (enzymatic activity/volume) 42 U/L 5-34 Serum or plasma alanine aminotransferase measurement (enzymatic activity/volume) 38 U/L 0-55 Serum or plasma protein [...] blood base excess by calculation -5.0 mmol/L -2.5-2.5 Arterial blood oxygen saturation measurement 99 % 94-100 * Inhaled oxygen flow rate 100% NRG Arterial blood pH measurement with patient temperature correction 7.27 7.37-7.43 Arterial blood carbon dioxide, total measurement (moles/volume) 22.5 mmol/L 21.0-31.0 Body site L RAD NRG Assessment of wrist artery patency prior to arterial puncture YES-POS NRG Setting of ventilation mode YES NRG Measurement of body temperature 97.2 NRG Methicillin resistant Staphylococcus aureus (MRSA) screening culture - 12/01/18 09:04 Methicillin resistant Staphylococcus aureus (MRSA) screening culture NEG NRG Sputum Gram stain - 12/01/18 09:10 Sputum Gram stain Many gram negative bacilli NRG Bacterial sputum culture - 12/01/18 09:10 FREE TEXT EXTERNAL PARSONS JARAMILLO SUSCEPTIBILTIY REPORTED NRG QUANTITY OF GROWTH Moderate Growth NRG FREE TEXT ENTRY 2 12/05/18 09:05 NRG Bacterial sputum culture [id number] NRG Serum or plasma lactate measurement (moles/volume) - 12/01/18 09:35 Serum or plasma lactate measurement (moles/volume) 1.04 mmol/L 0.50-2.00 Encounters ACCT No. Visit Date/Time Discharge Status Pt. Type Provider Facility Loc./Unit Complaint [id number] 11/04/2013 09:06:00 11/04/2013 23:59:59 CLS Outpatient SUSHMA MCRAE DO [id number] 05/27/2013 10:35:00 05/27/2013 23:59:59 [place] [id number] 05/22/2018 08:00:00 05/22/2018 23:59:59 CLS Outpatient Jefersontrinh Carol [facility] [id number] 06/23/2017 08:45:00 Document Registration [id number] 12/01/2018 07:12:00 12/01/2018 12:32:00 DIS Emergency MARILIN TORRES, ZAIN Olson [facility] ER SOA [id number] 09/16/2018 08:11:00 09/16/2018 09:53:00 DIS Emergency JOYCELYN TORRES, TIGRE Elizabeth [facility] ER R LUNG PAIN;SOB [id number] 07/31/2018 14:58:00 07/31/2018 23:59:59 CLS Preadmit SAMM BANGURAINE E MANAGER SPECIALTY [facility] RAD TOBACCO USE,COPD [id number] 07/28/2018 09:30:00 07/28/2018 23:59:59 CLS Outpatient SAMM BANGURAINE E MANAGER SPECIALTY [facility] RAD J43.9 COPD [id number] 06/24/2018 11:53:00 06/24/2018 23:59:59 CLS Outpatient JONNATHAN TORRES, SLICK Perez [facility] RAD PERSISTENT HEADACHE, LEFT SIDE [id number] 04/16/2018 08:50:00 04/16/2018 23:59:59 CLS Outpatient WILLEM SOBIA E MANAGER SPECIALTY [facility] RAD J18.9,J43.9 [id number] 08/04/2017 09:15:00 08/04/2017 23:59:59 CLS Outpatient WILLEM SOBIA E MANAGER SPECIALTY [facility] RAD J43.9 COPD [id number] 04/11/2017 11:07:00 04/11/2017 23:59:59 CLS Outpatient WILLEM SOBIA E MANAGER SPECIALTY [facility] RAD J18.9,Z72.0,R09.02 [id number] 08/26/2016 08:11:00 08/26/2016 23:59:59 CLS Outpatient WILLEM SOBIA E MANAGER SPECIALTY [facility] RAD COPD,TOBACCO USE, LUNG NODULE SEEN ON IMAGING STUD [id number] 07/08/2016 17:16:00 07/08/2016 21:14:00 DIS Emergency SAUNDRA MEHTA [facility] ER SOA/LUNG INFECTION [id number] 06/29/2016 08:52:00 06/29/2016 10:01:00 DIS Emergency JING TORRES, FRAN Mcneill [facility] ER FEVER/GENERALIZED ILLNESS [id number] 07/19/2015 09:41:00 07/19/2015 23:59:59 CLS Outpatient SOBIA BANGURA APRN [facility] RAD COPD [id number] 04/05/2015 07:21:00 04/05/2015 12:10:00 DIS Outpatient BRANDEE MARQUEZ MD [facility] SDC SCREENING [id number] 03/30/2015 08:33:00 03/30/2015 23:59:59 CLS Outpatient BRANDEE MARQUEZ MD [facility] PREOP SCREENING [id number] 08/15/2014 08:07:00 08/15/2014 23:59:59 CLS Outpatient EBENEZER BEVERLY DO [facility] RAD COPD,DYSPNEA [id number] 08/08/2014 08:29:00 08/08/2014 23:59:59 CLS Outpatient EBENEZER BEVERLY DO [facility] LAB COPD [id number] 08/02/2014 08:00:00 08/02/2014 23:59:59 CLS Preadmit EBENEZER BEVERLY DO [facility] PULM COPD,PALPITATIONS,DYSPNEA [id number] 07/19/2014 08:30:00 08/01/2014 00:01:00 DIS Outpatient EBENEZER BEVERLY DO [facility] PULM COPD,PALPITATIONS,DYSPNEA [id number] 05/04/2014 07:06:00 05/04/2014 23:59:59 CLS Outpatient EBENEZER BEVERLY DO [facility] RT COPD,DYSPNEA [id number] 04/15/2014 12:26:00 04/18/2014 11:03:00 DIS Inpatient LATANYA ALFREDO MD [facility] 4TH SWB,LOW BLOOD PRESSURE [id number] 04/10/2014 15:53:00 04/15/2014 12:10:00 DIS Inpatient LATANYA ALFREDO MD [facility] CSD L SIDED PLEURITIC CHEST PAIN [id number] 09/29/2012 08:54:00 12/28/2012 00:01:00 DIS Outpatient EKTA MARLOW [facility] CARD PALPITATIONS,PVC'S [id number] 08/17/2014 14:13:00 Document Registration [id number] 12/29/2012 09:00:00 Document Registration [id number] 09/28/2012 10:15:00 Document Registration [id number] 03/24/2012 10:55:00 Document Registration [id number] 03/23/2012 13:48:00 Document Registration [id number] 10/14/2011 07:32:00 Document Registration [id number] 07/04/2009 08:18:00 Document Registration [id number] 06/15/2009 08:43:00 Document Registration [id number] 03/22/2009 08:09:00 Document Registration [id number] 04/05/2015 07:24:02 ACT Document Registration [id number] 03/13/2017 15:07:00 Document Registration
--- NOTE | 2019-01-01 13:26 | NUR ---
REPORT RECEIVED FROM ELIAS LARA
--- NOTE | 2019-01-01 13:39 | NUR ---
DR BEVERLY HERE SEEING PT.
--- NOTE | 2019-01-01 13:43 | NUR ---
DR BEVERLY ON PHONE WITH DR JAMES AT THIS TIME.
--- NOTE | 2019-01-01 14:00 | NUR ---
PLANS ARE TO TRANSFER TO . ISMAEL CASTRO NOTIFIED BY PHONE
--- NOTE | 2019-01-01 14:20 | NUR ---
[facility] PUT ON STANDBY.
--- NOTE | 2019-01-01 14:27 | Pulmonary Consultation ---
History of Present Illness History of Present Illness Date of Consultation 01/01/19 14:27 Date of Admission Allergies and Home Medications Allergies Coded Allergies: No Known Drug Allergies (Verified , 04/05/15) Home Medications Albuterol Sulfate 18 Gm Hfa.aer.ad, 18 GM IH DAILY, (Reported) Aspirin 325 Mg Tab, 325 MG PO HS, (Reported) Cyanocobalamin 1,000 Mcg/Ml Vial, 1,000 MG IM MONTHLY PRN for WEAKNESS, (Reported) Levofloxacin 500 Mg Tablet, 500 MG PO DAILY Prescribed by: SAUNDRA CARTER on 07/08/162107 Prednisone 20 Mg Tab, 60 MG PO UD 3 tab po daily x7d, then 2 tabs po daily x7d, then 1 tab daily x7d Prescribed by: SAUNDRA CARTER on 07/08/162102 [Breo] , 1 PUFF INH DAILY PRN for SHORTNESS OF BREATH, (Reported) Past Iacqxmg-Jhnnff-Vgfgnj Hx Past Med/Social Hx: Reviewed Nursing Past Med/Soc Hx Patient Social History Alcohol Beverage of Choice: Wine Type Used: Cigarettes Former Smoker, Quit: Dec 06, 2013 Recent Foreign Travel: No Contact w/Someone Who Travel: No Recent Infectious Disease Expo: No Recent Hopitalizations: No Immunizations Up To Date Date of Pneumonia Vaccine: Nov 03, 2014 Date of Influenza Vaccine: May 18, 2016 Past Medical History Surgeries: Yes Lobectomy Respiratory: Yes (COPD, PNEUMOTHORAX) COPD, Emphysema Cardiac: Yes Neurological: No Reproductive Disorders: No Sexually Transmitted Disease: No HIV/AIDS: No Genitourinary: No Gastrointestinal: No Musculoskeletal: No Endocrine: No Hearing Impairment: Denies Cancer: No Psychosocial: No Integumentary: No Blood Disorders: No Adverse Reaction/Blood Tranf: No Family Medical History Cardiovascular disease 19 MOTHER G8 SISTER Completed stroke 19 MOTHER Parkinson's disease 19 FATHER No Pertinent Family Hx Sepsis Event Evaluation Height, Weight, BMI Height: 5'1.00" Weight: 115lbs. 3.0oz. 52.632926ln; 17.92 BMI Method:Estimated Exam Exam Vital Signs Date Time Temp Pulse Resp B/P (MAP) Pulse Ox O2 Delivery O2 Flow Rate FiO2 01/01/19 09:35 Nasal Cannula 5.00 01/01/19 09:13 97.9 94 18 133/101 (112) 96 Nasal Cannula 5.00 Height & Weight Height: 5'1.00" Weight: 115lbs. 3.0oz. 52.830959vq; 17.92 BMI Method:Estimated Capillary Refill: Less Than 3 Seconds Gastrointestinal: normal bowel sounds, soft Results Lab Laboratory Tests 01/01/19 09:24 EBENEZER BEVERLY DO January 01, 2019 14:27
--- NOTE | 2019-01-01 14:44 | History & Physical ---
History of Present Illness History of Present Illness Reason for visit/HPI 73 yo F admitted from the ER for acute on chronic hypoxic respiratory failure due to left side pneumonia and right side pneumothorax. Patient has a right sided chest tube drain from her stay at [place] last month for right sided pneumothorax. Patient reports she went to [place] ER last night and was discharged back home after an xray. She came to [facility] today because she was tai ve oxygen saturation of 60s with ambulation and knew something was not right. Normal for her recently was oxygen in the 80s with ambulation that recovered to the 90s with rest. She does wear nocturnal oxygen. She denies any fevers but endorses increased work of breathing. She has an appointment coming up in January with a chest surgeon specialist to help with her right pneumothorax; she would rather go the since it is closer but Dr. Mancilla has referred her to the [facility] specialist. Patient was started on broad spectrum antibiotics and admitted. She did eat a hamburger that was cooked in the ambulance bay for EMS week. Dr Roca is consulted on the case for recommendations. Date of Admission January 01, 2019 at 13:18 Date Seen by a Provider: January 01, 2019 Time Seen by a Provider: 12:45 I consulted on this patient on 01/01/19 14:32 Attending Physician Obed De Santiago MD Admitting Physician Obed De Santiago MD Consult Dr. Roca Allergies and Home Medications Allergies Coded Allergies: No Known Drug Allergies (Verified , 04/05/15) Home Medications Albuterol Sulfate 18 Gm Hfa.aer.ad, 18 GM IH DAILY, (Reported) Aspirin 325 Mg Tab, 325 MG PO HS, (Reported) Cyanocobalamin 1,000 Mcg/Ml Vial, 1,000 MG IM MONTHLY PRN for WEAKNESS, (Reported) Levofloxacin 500 Mg Tablet, 500 MG PO DAILY Prescribed by: SAUNDRA CARTER on 07/08/162107 Prednisone 20 Mg Tab, 60 MG PO UD 3 tab po daily x7d, then 2 tabs po daily x7d, then 1 tab daily x7d Prescribed by: SAUNDRA CARTER on 07/08/162102 [Breo] , 1 PUFF INH DAILY PRN for SHORTNESS OF BREATH, (Reported) Patient Home Medication List Home Medication List Reviewed: Yes Past [id number] Hx Patient Social History Alcohol Beverage of Choice: Wine Former Smoker, Quit: Dec 06, 2013 Type Used: Cigarettes Recent Foreign Travel: No Contact w/other who traveled: No Recent Hopitalizations: No Recent Infectious Disease Expo: No Immunizations Up To Date Date of Pneumonia Vaccine: Nov 03, 2014 Date of Influenza Vaccine: May 18, 2016 Surgeries Yes Lobectomy Respiratory Yes (COPD, PNEUMOTHORAX) Cardiovascular Yes Neurological No Reproductive System Hx Reproductive Disorders: No Sexually Transmitted Disease: No HIV/AIDS: No Genitourinary No Gastrointestinal No Musculoskeletal No Endocrine History of Endocrine Disorders: No HEENT Hearing Impairment: Denies Cancer No Psychosocial History of Psychiatric Problem: No Integumentary History of Skin or Integumenta: No Blood Transfusions History of Blood Disorders: No Adverse Reaction to a Blood Tr: No Family Medical History Significant Family History: No Pertinent Family Hx Family Hx: Cardiovascular disease 19 MOTHER G8 SISTER Completed stroke 19 MOTHER Parkinson's disease 19 FATHER Review of Systems Review of Systems General: No Chills, No Night Sweats HEENT: Head Aches; No Visual Changes Pulmonary: Dyspnea, Cough, Pleuritic Chest Pain Cardiovascular: Chest Pain, Palpitations Gastrointestinal: No: Nausea, Vomiting, Abdominal Pain Genitourinary: No Dysuria, No Frequency Musculoskeletal: No: neck pain, shoulder pain Neurological: Weakness Physical Exam Vital Signs Vital Signs - First Documented 01/01/19 09:13 Temp 97.9 Pulse 94 Resp 18 B/P (MAP) 133/101 (112) Pulse Ox 96 O2 Delivery Nasal Cannula O2 Flow Rate 5.00 Capillary Refill : Less Than 3 Seconds Height, Weight, BMI Height: 5'1.00" Weight: 115lbs. 3.0oz. [id number]; 17.92 BMI Method:Estimated General Appearance: Mild Distress HEENT: PERRL/EOMI Neck: Non Tender, Supple; No Carotid Bruit Respiratory: No Chest Non Tender; Decreased Breath Sounds (left lung > right lung), Respiratory Distress Cardiovascular: No Edema, Tachycardia Gastrointestinal: Non Tender, Soft Extremity: Non Tender Neurologic/Psychiatric: Alert, Oriented x3, No Motor/Sensory Deficits, 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 Skin: Warm/Dry Assessment/Plan Assessment/Plan Admission Dx acute on chronic hypoxic respiratory failure left lung pneumonia Admission Status: Inpatient Order (span 2 midnights) Reason for Inpatient Admission: Patient is expected to stay over 2 midnights due to the severity of her illness. She has bullous emphysema with recent right pneumothorax requiring a drain; now found to have respiratory failure; she could acutely decompensate requiring her current hospitalization. Assessment and Plan 01/01/19- panculture- continue broad spectrum antibiotics- monitor respiratory status. Dr. Roca consulted for recommendations. Dispo: guarded. Problems: (1) Acute and chronic respiratory failure with hypoxia (2) Pneumothorax, right (3) Left upper lobe pneumonia Qualifiers: Qualified Codes: J18.1 - Lobar pneumonia, unspecified organism OBED DE SANTIAGO MD January 01, 2019 14:44
--- NOTE | 2019-01-01 15:07 | NUR ---
[facility] HERE.
[2019-01-01 15:10] VITALS: BP 120/66
== END 2019-01-01 15:10 | disposition other institution (70) ==
LOC: EDUNIT# 09:13 → ER 09:14 → UNDOADMIN 13:18 → 4TH 13:18
DX: J18.1 Lobar pneumonia, unspecified organism (principal); J43.9 Emphysema, unspecified; Z79.82 Long term (current) use of aspirin; Z82.49 Family history of ischemic heart disease and other diseases of the circulatory system
CPT/HCPCS: 36415; 71045; 71275; 80053; 83605; 85025; 85610; 87040

== ENCOUNTER 2019-01-23 08:53 | Emergency (ER) | payer MEDICARE, OTHER ==
[~2019-01-23] VITALS: Ht 157.5 cm; Wt 45.4 kg
--- OUTSIDE RECORDS SUMMARY | 2019-01-23 09:11 | XMS REPORT | Clinical Summary ---
Author Author [facility] Organization [facility] Address Unknown Phone Unavailable Care Team Providers Care Software Lead Name Role Phone Obed Zelaya MD PCP Source Comments Some departments are not documenting in the electronic medical record. If you d o not see the information that you expected, contact Release of Information in [facility] Information Management department at [phone] for further assistan ana in locating additional records.[facility] Allergies No Known Allergies Medications End Date Status Medication Sig Dispensed Refills Start Date Active fluticasone-vilanterol(+) Inhale 1 puff 0 (BREO ELLIPTA) 100-25 mcg by mouth into inhalation disk the lungs daily. Active umeclidinium(+) (INCRUSE Inhale 1 puff 0 ELLIPTA) 62.5 by mouth into mcg/actuation inhalation the lungs disk daily. Active cyanocobalamin (VITAMIN Inject 1,000 0 B-12, RUBRAMIN) 1,000 mcg into the mcg/mL injection muscle. Every 2 months Active vitamins, multi Take 1 tablet 0 w/minerals 9 mg iron-400 by mouth mcg tab daily. Active acetaminophen (TYLENOL) Take two 0 325 mg tablet tablets by 9 mouth every 4 hours as needed. Active albuterol 0.083% Inhale 3 mL 180 mL 3 (PROVENTIL; VENTOLIN) 2.5 solution by 9 mg /3 mL (0.083 %) nebulizer as nebulizer solution directed every 4 hours as needed for Wheezing or Shortness of Breath. Active folic acid (FOLVITE) 1 mg Take one 90 tablet 3 tablet tablet by 9 mouth daily. Active guaiFENesin LA (MUCINEX) Take one 180 tablet 0 600 mg tablet tablet by 9 mouth three times daily. Active polyethylene glycol 3350 Take one 12 each 0 (MIRALAX) 17 g packet packet by 9 mouth daily. Active senna/docusate Take two 0 (SENOKOT-S) 8.6/50 mg tablets by 9 tablet mouth twice daily. Active thiamine mononitrate 100 Take one 0 mg tablet tablet by 9 mouth daily. Active traMADol (ULTRAM) 50 mg Take one 30 tablet 0 tablet tablet to two 9 tablets by mouth every 6 hours as needed. Active ciprofloxacin (CIPRO) 250 Take one 6 tablet 0 mg tablet tablet by 9 mouth twice daily. 01/03/2019 Discontinued aspirin 325 mg tablet Take 325 mg 0 by mouth every 6 hours as needed for Pain. Take with food. Active Problems Problem Noted Date Severe malnutrition 01/06/2019 On mechanically assisted ventilation 01/05/2019 Other emphysema 01/05/2019 Acute respiratory failure with hypoxia 01/01/2019 Bullous emphysema with collapse 01/01/2019 Pneumothorax on right 01/01/2019 Encounters Care Team Description Date Type Specialty Alirio Stanford MD RIGHT VIDEO ASSISTED THORACOSCOPY WITH MECHANICAL PLEURODESIS 01/05/2019 Surgery Yash Grijalva MD 01/05/2019 Anesthesia Event Aashish Murphy MD Spikes, Leslie, MD Lauer, Zachary, MD Abebe, Abebe, MD Veeramachaneni, Nirmal, MD Pneumothorax on right 01/01/2019 Hospital - Encounter 01/16/2019 01/01/2019 Hospital Radiology Encounter from Last 3 Months Social History Date Tobacco Use Types Packs/Day Years Used Quit: 01/02/2016 Former Smoker Cigarettes 1 55 Smokeless Tobacco: Never Used Alcohol Use Drinks/Week oz/Week Comments Yes 5 Glasses of 3.0 wine Alcohol Habits Answer Date Recorded How often do you have a drink containing alcohol? 4 or more times a week 01/01/2019 How many drinks containing alcohol do you have on 3 or 4 01/01/2019 a typical day when you are drinking? How often do you have six or more drinks on one Weekly 01/01/2019 occasion? Sex Assigned at Date Recorded Not on file Industry Job Start Date Occupation Not on file Not on file Not on file Travel End Travel History Travel Start No recent travel history available. Last Filed Vital Signs Time Taken Vital Sign Reading 01/16/2019 7:18 AM CDT Blood Pressure 124/63 01/16/2019 9:15 AM CDT Pulse 95 01/16/2019 7:18 AM CDT Temperature 36.7 C (98 F) - Respiratory Rate - 01/16/2019 7:18 AM CDT Oxygen Saturation 95% - Inhaled Oxygen - Concentration 01/16/2019 4:25 AM CDT Weight 42 kg (92 lb 9.6 oz) 01/15/2019 4:24 AM CDT Height 157.5 cm (5' 2.01") 01/15/2019 4:24 AM CDT Body Mass Index 16.93 Plan of Treatment Health Maintenance Due Date Last Done Comments PHYSICAL (COMPREHENSIVE) 1950 EXAM DTAP/TDAP VACCINES (1 - 1961 Tdap) COLORECTAL CANCER 1993 SCREENING SHINGLES RECOMBINANT 1993 VACCINE (1 of 2) OSTEOPOROSIS 02/24/2008 SCREENING/MONITORING PNEUMONIA (PCV13/PPSV23) 02/24/2008 VACCINES (1 of 2 - PCV13) INFLUENZA VACCINE 05/18/2019 Procedures Comments Procedure Name Priority Date/Time Associated Diagnosis CHEST SINGLE VIEW Routine 01/16/2019 6:32 AM CDT BASIC METABOLIC PANEL Routine 01/16/2019 4:20 AM CDT CBC Routine 01/16/2019 4:20 AM CDT CHEST 2 VIEWS Routine 01/15/2019 11:10 AM CDT CHEST SINGLE VIEW Routine 01/15/2019 6:42 AM CDT CHEST SINGLE VIEW STAT 01/14/2019 2:11 PM CDT CHEST SINGLE VIEW Routine 01/14/2019 6:23 AM CDT BASIC METABOLIC PANEL Routine 01/14/2019 4:17 AM CDT CBC Routine 01/14/2019 4:17 AM CDT UA REFLEX CULTURE LABEL Routine 01/13/2019 11:50 PM CDT URINALYSIS MICROSCOPIC Routine 01/13/2019 REFLEX TO CULTURE 11:50 PM CDT URINALYSIS DIPSTICK Routine 01/13/2019 REFLEX TO CULTURE 11:50 PM CDT CULTURE-URINE 01/13/2019 W/SENSITIVITY 11:50 PM CDT CHEST SINGLE VIEW Routine 01/13/2019 6:27 AM CDT CHEST SINGLE VIEW Routine 01/12/2019 6:29 AM CDT MAGNESIUM Routine 01/12/2019 3:59 AM CDT CBC Routine 01/12/2019 3:59 AM CDT BASIC METABOLIC PANEL Routine 01/12/2019 3:59 AM CDT CHEST SINGLE VIEW Routine 01/11/2019 6:36 AM CDT MAGNESIUM Routine 01/11/2019 5:03 AM CDT CBC Routine 01/11/2019 5:03 AM CDT BASIC METABOLIC PANEL Routine 01/11/2019 5:[address] CHEST WO CONTRAST Routine 01/10/2019 10:03 AM CDT CHEST SINGLE VIEW Routine 01/10/2019 8:18 AM CDT MAGNESIUM Routine 01/10/2019 4:57 AM CDT CBC Routine 01/10/2019 4:57 AM CDT BASIC METABOLIC PANEL Routine 01/10/2019 4:57 AM CDT CHEST SINGLE VIEW STAT 01/09/2019 12:30 PM CDT MAGNESIUM Routine 01/09/2019 4:19 AM CDT CBC Routine 01/09/2019 4:19 AM CDT BASIC METABOLIC PANEL Routine 01/09/2019 4:19 AM CDT CHEST SINGLE VIEW Routine 01/08/2019 6:19 AM CDT MAGNESIUM Routine 01/08/2019 4:20 AM CDT CBC Routine 01/08/2019 4:20 AM CDT BASIC METABOLIC PANEL Routine 01/08/2019 4:20 AM CDT CHEST SINGLE VIEW Routine 01/07/2019 6:14 AM CDT MAGNESIUM Routine 01/07/2019 3:46 AM CDT CBC Routine 01/07/2019 3:46 AM CDT BASIC METABOLIC PANEL Routine 01/07/2019 3:46 AM CDT POC BLOOD GAS ARTERIAL 01/06/2019 9:33 AM CDT CHEST SINGLE VIEW Routine 01/06/2019 4:47 AM CDT MAGNESIUM Routine 01/06/2019 2:15 AM CDT BASIC METABOLIC PANEL Routine 01/06/2019 2:15 AM CDT CBC Routine 01/06/2019 2:15 AM CDT BLOOD GASES, ARTERIAL STAT 01/06/2019 2:15 AM CDT POC BLOOD GAS ARTERIAL 01/05/2019 6:48 PM CDT BLOOD GASES, ARTERIAL STAT 01/05/2019 4:15 PM CDT PTT (APTT) 01/05/2019 1:30 PM CDT PROTIME INR (PT) 01/05/2019 1:30 PM CDT BLOOD GASES, ARTERIAL Routine 01/05/2019 1:30 PM CDT MAGNESIUM STAT 01/05/2019 1:30 PM CDT BASIC METABOLIC PANEL STAT 01/05/2019 1:30 PM CDT CBC STAT 01/05/2019 1:30 PM CDT ABDOMEN AP ONLY STAT 01/05/2019 12:57 PM CDT ECG 12-LEAD STAT 01/05/2019 12:34 PM CDT CHEST SINGLE VIEW STAT 01/05/2019 12:20 PM CDT CULTURE-FUNGAL,OTHER STAT 01/05/2019 Pneumothorax on right 11:03 AM CDT GRAM STAIN STAT 01/05/2019 Pneumothorax on right 11:03 AM CDT CULTURE-TB (AFB) STAT 01/05/2019 Pneumothorax on right 11:03 AM CDT CULTURE-WOUND/TISSUE/FLUI STAT 01/05/2019 Pneumothorax on right D(AEROBIC 11:03 AM CDT ONLY)W/SENSITIVITY CULTURE-ANAEROBIC STAT 01/05/2019 Pneumothorax on right 11:03 AM CDT CHEST SINGLE VIEW Routine 01/05/2019 6:28 AM CDT PHOSPHORUS Routine 01/05/2019 5:31 AM CDT MAGNESIUM Routine 01/05/2019 5:31 AM CDT COMPREHENSIVE METABOLIC Routine 01/05/2019 PANEL 5:31 AM CDT CBC AND DIFF Routine 01/05/2019 5:31 AM CDT BLOOD TYPE CONFIRMATION - Specimen 01/04/2019 ORDER ONLY IF REQUESTED in Lab 2:55 PM CDT BY LAB TYPE & CROSSMATCH Routine 01/04/2019 1:46 PM CDT CHEST SINGLE VIEW Routine 01/04/2019 10:04 AM CDT PHOSPHORUS Routine 01/04/2019 5:09 AM CDT MAGNESIUM Routine 01/04/2019 5:09 AM CDT COMPREHENSIVE METABOLIC Routine 01/04/2019 PANEL 5:09 AM CDT CBC AND DIFF Routine 01/04/2019 5:09 AM CDT TSH WITH FREE T4 REFLEX Add on 01/03/2019 3:35 AM CDT VITAMIN B12 Add on 01/03/2019 3:35 AM CDT PHOSPHORUS Routine 01/03/2019 3:35 AM CDT MAGNESIUM Routine 01/03/2019 3:35 AM CDT COMPREHENSIVE METABOLIC Routine 01/03/2019 PANEL 3:35 AM CDT CBC AND DIFF Routine 01/03/2019 3:35 AM CDT ECG-SCAN 01/03/2019 12:[address] CHEST W CONTRAST Routine 01/02/2019 10:56 AM CDT CHEST SINGLE VIEW DERRELL 01/02/2019 8:37 AM CDT MAGNESIUM Routine 01/02/2019 3:17 AM CDT COMPREHENSIVE METABOLIC Routine 01/02/2019 PANEL 3:17 AM CDT CBC AND DIFF Routine 01/02/2019 3:17 AM CDT TROPONIN-I STAT 01/01/2019 6:40 PM CDT CHEST SINGLE VIEW Routine 01/01/2019 5:05 PM CDT BLOOD GASES, ARTERIAL STAT 01/01/2019 5:00 PM CDT BLOOD BANK SAMPLE HOLD 01/01/2019 4:35 PM CDT PROCALCITONIN Routine 01/01/2019 4:35 PM CDT TROPONIN-I STAT 01/01/2019 4:35 PM CDT BNP (B-TYPE NATRIURETIC Routine 01/01/2019 PEPTI) 4:35 PM CDT PHOSPHORUS Routine 01/01/2019 4:35 PM CDT MAGNESIUM Routine 01/01/2019 4:35 PM CDT LACTIC ACID (BG - RAPID Routine 01/01/2019 LACTATE) 4:35 PM CDT COMPREHENSIVE METABOLIC Routine 01/01/2019 PANEL 4:35 PM CDT PTT (APTT) Routine 01/01/2019 4:35 PM CDT PROTIME INR (PT) Routine 01/01/2019 4:35 PM CDT CBC AND DIFF Routine 01/01/2019 4:35 PM CDT ECG 12-LEAD STAT 01/01/2019 4:30 PM CDT GENERAL RAD CHEST Routine 01/01/2019 EXTERNAL IMAGING 12:00 AM CDT TELEMETRY STRIPS-SCAN 01/01/2019 12:00 AM CDT TELEMETRY STRIPS-SCAN 01/01/2019 12:00 AM CDT TELEMETRY STRIPS-SCAN 01/01/2019 12:00 AM CDT TELEMETRY STRIPS-SCAN 01/01/2019 12:00 AM CDT TELEMETRY STRIPS-SCAN 01/01/2019 12:00 AM CDT TELEMETRY STRIPS-SCAN 01/01/2019 12:00 AM CDT TELEMETRY STRIPS-SCAN 01/01/2019 12:00 AM CDT TELEMETRY STRIPS-SCAN 01/01/2019 12:00 AM CDT TELEMETRY STRIPS-SCAN 01/01/2019 12:00 AM CDT ECG-SCAN 01/01/2019 12:00 AM CDT CONSULT IV THERAPY TEAM Routine 01/01/2019 12:00 AM CDT ECG-SCAN 01/01/2019 12:00 AM CDT from Last 3 Months Results * CHEST SINGLE VIEW (01/16/2019 6:32 AM CDT) Only the most recent of 17 results within the time period is included. Impressions Performed At 1.Tubes and lines as described above. [facility] RESULTS 2.Unchanged right hydropneumothorax and left lung volume loss with a small left pleural effusion. Approved by Massimo Hylton D.O. on 01/16/2019 11:56 AM By my electronic signature, I attest that I have personally reviewed the images for this examination and formulated the interpretations and opinions expressed in this report Finalized by Tad Rhodes M.D. on 01/16/2019 1:37 PM. Dictated by Massimo Hylton D.O. on 01/16/2019 10:45 AM. Narrative Performed At CHEST SINGLE VIEW [facility] RESULTS Clinical Indication: Female, 73 years old. Status post right pleurodesis, monitoring of chest tubes. Comparison: Prior chest radiograph dated 01/15/2019. Findings: 2 right thoracostomy tubes remain in place and in similar position as the prior exam. The cardiac silhouette is normal in size. No pulmonary vascular congestion. Unchanged appearance of a multiloculated right hydropneumothorax with unchanged left lung with volume loss with unchanged small left pleural effusion. Redemonstration of marked emphysematous changes. Procedure Note Interface, Radiant Results - 01/16/2019 1:40 PM CDT CHEST SINGLE VIEW Clinical Indication: Female, 73 years old. Status post right pleurodesis, monitoring of chest tubes. Comparison: Prior chest radiograph dated 01/15/2019. Findings: 2 right thoracostomy tubes remain in place and in similar position as the prior exam. The cardiac silhouette is normal in size. No pulmonary vascular congestion. Unchanged appearance of a multiloculated right hydropneumothorax with unchanged left lung with volume loss with unchanged small left pleural effusion. Redemonstration of marked emphysematous changes. IMPRESSION 1. Tubes and lines as described above. 2. Unchanged right hydropneumothorax and left lung volume loss with a small left pleural effusion. Approved by Massimo Hylton D.O. on 01/16/2019 11:56 AM By my electronic signature, I attest that I have personally reviewed the images for this examination and formulated the interpretations and opinions expressed in this report Finalized by Tad Rhodes M.D. on 01/16/2019 1:37 PM. Dictated by Massimo Hylton D.O. on 01/16/2019 10:45 AM. Performing Organization Address City/[facility] Phone Number RAD RESULTS * CBC (01/16/2019 4:20 AM CDT) Only the most recent of 10 results within the time period is included. Pathologist [facility] White Blood 5.5 4.5 - 11.0 K/UL [facility] Cells RBC 3.33 (L) 4.0 - 5.0 M/UL [facility] Hemoglobin 11.0 (L) 12.0 - 15.0 GM/DL [facility] Hematocrit 34.0 (L) 36 - 45 % [facility] MCV 102.1 (H) 80 - 100 FL [facility] MCH 33.1 26 - 34 PG [facility] MCHC 32.5 32.0 - 36.0 G/DL [facility] RDW 14.2 11 - 15 % [facility] Platelet Count 442 (H) 150 - 400 K/UL [facility] MPV 6.5 (L) 7 - 11 FL [facility] Specimen Blood Performing Organization Address City/[facility] Phone Number MA[facility] LAB [address] [place] [address] * BASIC METABOLIC PANEL (01/16/2019 4:20 AM CDT) Only the most recent of 10 results within the time period is included. Pathologist [facility] Sodium 138 137 - 147 MMOL/L [facility] Potassium 4.0 3.5 - 5.1 MMOL/L [facility] Chloride 104 98 - 110 MMOL/L [facility] CO2 29 21 - 30 MMOL/L [facility] Anion Gap 5 3 - 12 [facility] Glucose 94 70 - 100 MG/DL [facility] Blood Urea 7 7 - 25 MG/DL [facility] Nitrogen Creatinine 0.42 0.4 - 1.00 MG/DL [facility] Calcium 8.6 8.5 - 10.6 MG/DL [facility] eGFR Non >60 >60 mL/min [facility] Comment: [place] The eGFR is not validated for use in drug dosing adjustments.Continue to use estimated creatinine clearance per dosing reference text.Please contact the Clinical Pharmacist for questions. eGFR >60 >60 mL/min [facility] [place] Comment: The eGFR is not validated for use in drug dosing adjustments.Continue to use estimated creatinine clearance per dosing reference text.Please contact the Clinical Pharmacist for questions. Specimen Blood Performing Organization Address City/State/Zipcode Phone Number MAIN LAB [address] [place] [address] * CHEST 2 VIEWS (01/15/2019 11:10 AM CDT) Impressions Performed At 1. Slight increase in multiloculated right hydropneumothorax with apical and [facility] RESULTS basal components and chest tubes in place. 2. Unchanged patchy bilateral opacities. Improving diffuse interstitial opacities. 3. Similar left upper lobe volume loss with apical cap. Finalized by Biju Ewing M.D. on 01/15/2019 11:17 AM. Dictated by Biju Ewing M.D. on 01/15/2019 11:16 AM. Narrative Performed At CHEST 2 VIEWS [facility] RESULTS INDICATION: s/p converting chest tubes to heimlich valves. COMPARISON STUDY: January 15, 2019. FINDINGS: Life support devices: Stable support devices. Lungs: The lung volume is normal. Unchanged patchy bilateral opacities greatest in the right upper and left lower lung zones. Similar left upper lobe volume loss with apical cap. Improving interstitial opacities. Pleura: Slight increase in multiloculated right hydropneumothorax with apical and basal components. Small left pleural effusion persists. Heart and Mediastinum: Stable leftward shift of the heart and mediastinal structures. Skeletal Structures and Soft Tissues: Stable regional skeleton. Procedure Note Interface, Radiant Results - 01/15/2019 11:21 AM CDT CHEST 2 VIEWS INDICATION: s/p converting chest tubes to heimlich valves. COMPARISON STUDY: January 15, 2019. FINDINGS: Life support devices: Stable support devices. Lungs: The lung volume is normal. Unchanged patchy bilateral opacities greatest in the right upper and left lower lung zones. Similar left upper lobe volume loss with apical cap. Improving interstitial opacities. Pleura: Slight increase in multiloculated right hydropneumothorax with apical and basal components. Small left pleural effusion persists. Heart and Mediastinum: Stable leftward shift of the heart and mediastinal structures. Skeletal Structures and Soft Tissues: Stable regional skeleton. IMPRESSION 1. Slight increase in multiloculated right hydropneumothorax with apical and basal components and chest tubes in place. 2. Unchanged patchy bilateral opacities. Improving diffuse interstitial opacities. 3. Similar left upper lobe volume loss with apical cap. Finalized by Biju Ewing M.D. on 01/15/2019 11:17 AM. Dictated by Biju Ewing M.D. on 01/15/2019 11:16 AM. Performing Organization Address [facility]/Zipcode Phone Number RAD RESULTS * UA REFLEX CULTURE LABEL (01/13/2019 11:50 PM CDT) UA Reflex LAB LABEL [facility] Culture Specimen Urine Performing Organization Address [facility] Phone Number MAIN LAB [address] [place] [address] * URINALYSIS MICROSCOPIC REFLEX TO CULTURE (01/13/2019 11:50 PM CDT) WBCs,UA 20-50 0 - 2 /HPF [facility] RBCs,UA 2-10 0 - 3 /HPF [facility] Comment,UA Criteria for reflex to culture [facility] are WBC>10, Positive Nitrite, and/or >=+1 leukocytes. If quantity is not sufficient, an addendum will follow. MucousUA TRACE [facility] Bacteria,UA FEW (A) NEG-NEG [facility] Specimen Urine Performing Organization Address [facility] Phone Number [facility] [address] [place] [address] * URINALYSIS DIPSTICK REFLEX TO CULTURE (01/13/2019 11:50 PM CDT) Color,UA YELLOW [facility] Turbidity,UA CLEAR CLEAR-CLEAR [facility] Specific 1.008 1.003 - 1.035 [facility] [place]-Urine pH,UA 7.0 5.0 - 8.0 [facility] Protein,UA NEG NEG-NEG MAIN LAB Glucose,UA NEG NEG-NEG MAIN LAB Ketones,UA NEG NEG-NEG MAIN LAB Bilirubin,UA NEG NEG-NEG MAIN LAB Blood,UA 1+ (A) NEG-NEG MAIN LAB Urobilinogen,UA NORMAL NORM-NORMAL MAIN LAB Nitrite,UA POS (A) NEG-NEG MAIN LAB Leukocytes,UA 3+ (A) NEG-NEG MAIN LAB Urine Ascorbic NEG NEG-NEG MAIN LAB Acid, UA Specimen Urine Performing Organization Address [facility] Phone Number [facility] [address] [place] [address] * CULTURE-URINE W/SENSITIVITY (01/13/2019 11:50 PM CDT) Battery Name URINE CULTURE MAIN LAB Specimen URINE MAIN LAB Description Special NONE MAIN LAB Requests Culture >100,000 organisms/ml MAIN LAB PSEUDOMONAS AERUGINOSA (A) Report Status FINAL [facility] 01/16/2019 Organism ID >100,000 organisms/ml MAIN LAB PSEUDOMONAS AERUGINOSA Specimen Urine Antibiotic Method Susceptibility Organism Amikacin TAMEKA (MCG/ML) INTERPRETATION <=8 SUSCEPTIBLE: Susceptible >100,000 organisms/ml pseudomonas aeruginosa Cefepime TAMEKA (MCG/ML) INTERPRETATION 2 SUSCEPTIBLE: Susceptible >100,000 organisms/ml pseudomonas aeruginosa Levofloxacin TAMEKA (MCG/ML) INTERPRETATION <=1 SUSCEPTIBLE: Susceptible >100,000 organisms/ml pseudomonas aeruginosa Gentamicin TAMEKA (MCG/ML) INTERPRETATION <=2 SUSCEPTIBLE: Susceptible >100,000 organisms/ml pseudomonas aeruginosa Meropenem TAMEKA (MCG/ML) INTERPRETATION <=0.25 SUSCEPTIBLE: Susceptible >100,000 organisms/ml pseudomonas aeruginosa Piperacil/Tazobactam TAMEKA (MCG/ML) INTERPRETATION 8/4 SUSCEPTIBLE: Susceptible >100,000 organisms/ml pseudomonas aeruginosa Tobramycin TAMEKA (MCG/ML) INTERPRETATION <=2 SUSCEPTIBLE: Susceptible >100,000 organisms/ml pseudomonas aeruginosa Aztreonam TAMEKA (MCG/ML) INTERPRETATION 8 SUSCEPTIBLE: Susceptible >100,000 organisms/ml pseudomonas aeruginosa Method TAMEKA (MCG/ML) INTERPRETATION TAMEKA (MCG/ML) INTERPRETATION >100,000 organisms/ml pseudomonas aeruginosa Performing Organization Address [facility] Phone Number [facility] [address] [place] [address] * MAGNESIUM (01/12/2019 3:59 AM CDT) Only the most recent of 13 results within the time period is included. Magnesium 1.8 1.6 - 2.6 mg/dL [facility] Specimen Blood Performing Organization Address City/State/Zipcode Phone Number MAIN LAB [address] [place] [address] * CT CHEST WO CONTRAST (01/10/2019 10:03 AM CDT) Impressions Performed At Decreased small right pneumothorax status post pleurodesis without significant [facility] RAD RESULTS residual right pleural effusion and improvement of right lung expansion. Decreased trace left pleural effusion. Otherwise stable CT chest with marked emphysema, scattered areas of pleural-parenchymal scarring, and fibrosis with associated volume loss and leftward mediastinal shift. Continued attention on follow up recommended. Finalized by Kyree Geiger M.D. on 01/10/2019 1:28 PM. Dictated by Kyree Geiger M.D. on 01/10/2019 1:08 PM. Narrative Performed At CT CHEST [facility] RAD RESULTS Clinical Indication:Female, 73 years old. Pneumothorax, status post right pleurodesis. Technique: Multiple contiguous axial CT images were obtained through the chest without IV contrast. Post processing coronal and sagittal reconstruction images were made from the axial images. IV contrast: None. Comparison: CT chest December 2018. FINDINGS: Evaluation of the mediastinum and shad, including the vasculature and for lymphadenopathy, is limited without the use of IV contrast. Lower Neck: Unremarkable Axilla, Mediastinum and Shad: No axillary lymphadenopathy. Prominent mediastinal lymph nodes, likely reactive. Limited evaluation of pulmonary shad in the absence of intravenous contrast. Heart and Great Vessels: Heart is normal in size. Normal caliber thoracic aorta with mild atherosclerotic calcification. Airway, Lungs and Pleura: Decreased small right pneumothorax which is most pronounced within the right lung base. No significant residual right pleural effusion. Interval visualization of patchy intermediate and relatively high density right pleural nodularity compatible with interval pleurodesis. Right thoracostomy tubes (2). Right lung is well expanded apart from mild patchy peripheral areas of consolidation. Additional scattered areas of pleural-parenchymal scarring and fibrosis are again noted, greatest within the left lung apex with associated volume loss and bronchiectasis. Additional nonspecific left basilar pulmonary opacities are not significantly changed. Decreased size of trace left pleural effusion. No evidence of left pneumothorax. Upper Abdomen: Unremarkable. Chest Wall and Osseous Structures: No destructive osseous lesion. Unchanged mild superior plate compression at L1. Procedure Note Interface, Radiant Results - 01/10/2019 1:[address] CHEST Clinical Indication: Female, 73 years old. Pneumothorax, status post right pleurodesis. Technique: Multiple contiguous axial CT images were obtained through the chest without IV contrast. Post processing coronal and sagittal reconstruction images were made from the axial images. IV contrast: None. Comparison: CT chest December 2018. FINDINGS: Evaluation of the mediastinum and shad, including the vasculature and for lymphadenopathy, is limited without the use of IV contrast. Lower Neck: Unremarkable Axilla, Mediastinum and Shad: No axillary lymphadenopathy. Prominent mediastinal lymph nodes, likely reactive. Limited evaluation of pulmonary shad in the absence of intravenous contrast. Heart and Great Vessels: Heart is normal in size. Normal caliber thoracic aorta with mild atherosclerotic calcification. Airway, Lungs and Pleura: Decreased small right pneumothorax which is most pronounced within the right lung base. No significant residual right pleural effusion. Interval visualization of patchy intermediate and relatively high density right pleural nodularity compatible with interval pleurodesis. Right thoracostomy tubes (2). Right lung is well expanded apart from mild patchy peripheral areas of consolidation. Additional scattered areas of pleural-parenchymal scarring and fibrosis are again noted, greatest within the left lung apex with associated volume loss and bronchiectasis. Additional nonspecific left basilar pulmonary opacities are not significantly changed. Decreased size of trace left pleural effusion. No evidence of left pneumothorax. Upper Abdomen: Unremarkable. Chest Wall and Osseous Structures: No destructive osseous lesion. Unchanged mild superior plate compression at L1. IMPRESSION Decreased small right pneumothorax status post pleurodesis without significant residual right pleural effusion and improvement of right lung expansion. Decreased trace left pleural effusion. Otherwise stable CT chest with marked emphysema, scattered areas of pleural- parenchymal scarring, and fibrosis with associated volume loss and leftward mediastinal shift. Continued attention on follow up recommended. Finalized by Kyree Geiger M.D. on 01/10/2019 1:28 PM. Dictated by Kyree Geiger M.D. on 01/10/2019 1:08 PM. Performing Organization Address City/State/Zipcode Phone Number [facility] RAD RESULTS * POC BLOOD GAS ARTERIAL (01/06/2019 9:33 AM CDT) Only the most recent of 2 results within the time period is included. PH-ART-POC 7.38 7.35 - 7.45 MAIN LAB PIU2-VUZ-CKE 44 35 - 45 MM[facility] MAIN LAB PO2-ART-POC 123 (H) 80 - 100 MM[facility] MAIN LAB Base Ex-ART-POC 1.0 MMOL/L MAIN LAB O2 Sat-ART-POC 99.0 95 - 99 % MAIN LAB Bicarbonate-ART 26.1 21 - 28 MMOL/L MAIN LAB -POC Performing Organization Address [facility] Phone Number MAIN LAB [address] [phone] * BLOOD GASES, ARTERIAL (01/06/2019 2:15 AM CDT) Only the most recent of 4 results within the time period is included. pH-Arterial 7.49 (H) 7.35 - 7.45 MAIN LAB pCO2-Arterial 34 (L) 35 - 45 MM[facility] MAIN LAB pO2-Arterial 139 (H) 80 - 100 [facility] MAIN LAB Base 2.3 MMOL/L MAIN LAB Excess-Arterial O2 Sat-Arterial 99.5 (H) 95 - 99 % MAIN LAB Bicarbonate-ART 26.5 21 - 28 MMOL/L MAIN LAB -Mir Specimen Blood, arterial - Blood Performing Organization Address [facility] Phone Number MAIN LAB [address] [place], [place] [id number] * PTT (APTT) (01/05/2019 1:30 PM CDT) Only the most recent of 2 results within the time period is included. APTT 26.5 24.0 - 36.5 SEC MAIN LAB Performing Organization Address [facility] Phone Number MAIN LAB [address] [place] [address] * PROTIME INR (PT) (01/05/2019 1:30 PM CDT) Only the most recent of 2 results within the time period is included. INR 1.0 0.8 - 1.2 MAIN LAB Performing Organization Address [facility] Phone Number MAIN LAB [address] [place] [address] * ABDOMEN AP ONLY (01/05/2019 12:57 PM CDT) Impressions Performed At Indwelling gastric tube positioning as above. RAD RESULTS Finalized by Nannette Basurto M.D. on 01/05/2019 1:26 PM. Dictated by Nannette Basurto M.D. on 01/05/2019 1:24 PM. Narrative Performed At Portable supine abdominal radiograph [facility] RAD RESULTS CLINICAL INDICATION: Pneumothorax, orogastric tube. COMPARISON: Chest radiograph from the same day. FINDINGS: A right thoracostomy tube is partially visualized. See same day chest radiograph for additional thoracic findings. Gastric tube is present with tip in the expected region of the mid to distal stomach. Lower pelvis is excluded from the [id number]-ro-[id number]. Visualized bowel gas pattern is nonobstructive. Procedure Note Interface, Radiant Results - 01/05/2019 1:29 PM CDT Portable supine abdominal radiograph CLINICAL INDICATION: Pneumothorax, orogastric tube. COMPARISON: Chest radiograph from the same day. FINDINGS: A right thoracostomy tube is partially visualized. See same day chest radiograph for additional thoracic findings. Gastric tube is present with tip in the expected region of the mid to distal stomach. Lower pelvis is excluded from the uihcm-ro-belz. Visualized bowel gas pattern is nonobstructive. IMPRESSION Indwelling gastric tube positioning as above. Finalized by Nannette Basurto M.D. on 01/05/2019 1:26 PM. Dictated by Nannette Basurto M.D. on 01/05/2019 1:24 PM. Performing Organization Address City/State/Zipcode Phone Number RAD RESULTS * GRAM STAIN (01/05/2019 11:03 AM CDT) Battery Name GRAM STAIN [facility] MAIN LAB Specimen TISSUE MAIN LAB Description PLERUAL PEEL Special NONE MAIN LAB Requests Gram Stain NO NEUTROPHILS SEEN MAIN LAB NO ORGANISMS SEEN Report Status FINAL MAIN LAB 01/05/2019 Specimen Tissue - Tissue Performing Organization Address City/State/Zipcode Phone Number MAIN LAB [address] [place] [address] * CULTURE-WOUND/TISSUE/FLUID(AEROBIC ONLY)W/SENSITIVITY (01/05/2019 11:03 AM CDT) Battery Name ROUTINE CULTURE MAIN LAB Specimen TISSUE MAIN LAB Description PLERUAL PEEL Special NONE MAIN LAB Requests Direct Gram NO NEUTROPHILS SEEN [facility] MAIN LAB Stain NO ORGANISMS SEEN Culture NO GROWTH 5 DAYS [facility] MAIN LAB Report Status FINAL MAIN LAB 01/10/2019 Specimen Tissue - Tissue Performing Organization Address City/[facility]/Zipcode Phone Number MAIN LAB [address] [place] [address] * CULTURE-ANAEROBIC (01/05/2019 11:03 AM CDT) Battery Name ANAEROBE CULTURE [facility] MAIN LAB Specimen TISSUE MAIN LAB Description PLERUAL PEEL Special NONE [facility] MAIN LAB Requests Culture NO ANAEROBES ISOLATED MAIN LAB Report Status FINAL MAIN LAB 01/11/2019 Specimen Tissue - Tissue Performing Organization Address [facility] Phone Number MAIN LAB [address] [place] [address] * CBC AND DIFF (01/05/2019 5:31 AM CDT) Only the most recent of 5 results within the time period is included. White Blood 3.8 (L) 4.5 - 11.0 K/UL MAIN LAB Cells RBC 3.90 (L) 4.0 - 5.0 M/UL [facility] MAIN LAB Hemoglobin 12.9 12.0 - 15.0 GM/DL MAIN LAB Hematocrit 39.4 36 - 45 % MAIN LAB MCV 101.1 (H) 80 - 100 FL MAIN LAB MCH 33.2 26 - 34 PG MAIN LAB MCHC 32.8 32.0 - 36.0 G/DL MAIN LAB RDW 13.4 11 - 15 % [facility] MAIN LAB Platelet Count 337 150 - 400 K/UL MAIN LAB MPV 6.8 (L) 7 - 11 FL [facility] MAIN LAB Neutrophils 55 41 - 77 % [facility] MAIN LAB Lymphocytes 14 (L) 24 - 44 % MAIN LAB Monocytes 16 (H) 4 - 12 % MAIN LAB Eosinophils 14 (H) 0 - 5 % MAIN LAB Basophils 1 0 - 2 % MAIN LAB Absolute 2.10 1.8 - 7.0 K/UL MAIN LAB Neutrophil Count Absolute Lymph 0.50 (L) 1.0 - 4.8 K/UL [facility] MAIN LAB Count Absolute 0.60 0 - 0.80 K/UL MAIN LAB Monocyte Count Absolute 0.50 (H) 0 - 0.45 K/UL [facility] MAIN LAB Eosinophil Count Absolute 0.00 0 - 0.20 K/UL [facility] MAIN LAB Basophil Count Specimen Blood Performing Organization Address City/[facility]/Zipcode Phone Number MAIN LAB [address] [place] [address] * PHOSPHORUS (01/05/2019 5:31 AM CDT) Only the most recent of 4 results within the time period is included. Phosphorus 3.9Comment: NOTE NEW REFERENCE 2.0 - 4.5 MG/DL [facility] MAIN LAB RANGES Specimen Blood Performing Organization Address City/[facility]/Zipcode Phone Number MAIN LAB [address] [place] [address] * COMPREHENSIVE METABOLIC PANEL (01/05/2019 5:31 AM CDT) Only the most recent of 5 results within the time period is included. Sodium 135 (L) 137 - 147 MMOL/L [facility] MAIN LAB Potassium 4.1 3.5 - 5.1 MMOL/L [facility] MAIN LAB Chloride 98 98 - 110 MMOL/L [facility] MAIN LAB Glucose 102 (H) 70 - 100 MG/DL [facility] MAIN LAB Blood Urea 4 (L) 7 - 25 MG/DL [facility] MAIN LAB Nitrogen Creatinine 0.38 (L) 0.4 - 1.00 MG/DL [facility] MAIN LAB Calcium 9.3 8.5 - 10.6 MG/DL [facility] MAIN LAB Total Protein 6.0 6.0 - 8.0 G/DL [facility] MAIN LAB Total Bilirubin 0.3 0.3 - 1.2 MG/DL [facility] MAIN LAB Albumin 3.5 3.5 - 5.0 G/DL [facility] MAIN LAB Alk Phosphatase 62 25 - 110 U/L [facility] MAIN LAB AST (SGOT) 17 7 - 40 U/L [facility] MAIN LAB CO2 28 21 - 30 MMOL/L [facility] MAIN LAB ALT (SGPT) 13 7 - 56 U/L [facility] MAIN LAB Anion Gap 9 3 - 12 [facility] MAIN LAB eGFR Non >60 >60 mL/min [facility] MAIN LAB Comment: [place] The eGFR is not validated for use in drug dosing adjustments.Continue to use estimated creatinine clearance per dosing reference text.Please contact the Clinical Pharmacist for questions. eGFR >60 >60 mL/min [facility] MAIN LAB [place] Comment: The eGFR is not validated for use in drug dosing adjustments.Continue to use estimated creatinine clearance per dosing reference text.Please contact the Clinical Pharmacist for questions. Specimen Blood Performing Organization Address City/[facility]/Zipcode Phone Number [facility] [address] [place] [address] * BLOOD TYPE CONFIRMATION - ORDER ONLY IF REQUESTED BY LAB (01/04/2019 2:55 PM CDT) ABO/RH(D) A POS MAIN LAB Specimen Blood Performing Organization Address City/[facility]/Zipcode Phone Number MAIN LAB [address] [place] [address] * TYPE & CROSSMATCH (01/04/2019 1:46 PM CDT) Units Ordered 0 MAIN LAB Crossmatch 01/07/2019 [facility] MAIN LAB Expires Record Check 2ND TYPE REQUIRED MAIN LAB ABO/RH(D) A POS MAIN LAB Antibody Screen NEG MAIN LAB Electronic YES MAIN LAB Crossmatch Specimen Blood Performing Organization Address City/[facility]/Zipcode Phone Number MAIN LAB [address] [place] [address] * TSH WITH FREE T4 REFLEX (01/03/2019 3:35 AM CDT) TSH 3.840 0.35 - 5.00 MCU/ML MAIN LAB Performing Organization Address City/[facility]/Zipcode Phone Number MAIN LAB [address] [place] [address] * VITAMIN B12 (01/03/2019 3:35 AM CDT) Vitamin B12 396 180 - 914 PG/ML MAIN LAB Performing Organization Address City/[facility] Phone Number [facility] LAB [address] [place] [address] * ECG-SCAN (01/03/2019 12:00 AM CDT) Narrative Performed At Ordered by an unspecified provider. * CT CHEST W CONTRAST (01/02/2019 10:56 AM CDT) Impressions Performed At 1. Large right hydropneumothorax with indwelling thoracostomy tube. [facility] RAD RESULTS 2. Scarring and volume loss within the left upper lobe. There is leftward shift of the mediastinal structures which is likely due to the volume loss within the left upper lobe. Additionally, mass effect from the right pneumothorax could also be contributing to the mediastinal shift. 3. Moderate emphysema. Finalized by Thomas Luther D.O. on 01/02/2019 12:40 PM. Dictated by Thomas Luther D.O. on 01/02/2019 12:00 PM. Narrative Performed At CT scan of the chest [facility] RAD RESULTS Clinical history: Persistent anteriorly on right Technique: Multiple contiguous axial images were obtained through the chest after the IV administration of Omnipaque 350 contrast material. Image postprocessing coronal and sagittal reconstructions were obtained from the source axial data. Comparison: Prior chest x-ray obtained earlier the same day at 0816 hours Findings: Heart and great vessels: Unremarkable Mediastinum and pulmonary shad: No lymphadenopathy. Persistent leftward shift of the mediastinal structures. Central airways, lungs, and pleura: The central airways are unremarkable. Moderate emphysema is present within the lungs. Scarring and volume loss are redemonstrated within the left upper lobe. Small bilateral pleural effusions are noted. There is mild dependent atelectasis within both lower lobes. Note is again made of a large right pneumothorax. The indwelling thoracostomy tube remains in similar position terminating along the posterior margin of the right upper lobe. Upper abdomen: Unremarkable Osseous structures and chest wall: The patient is osteopenic. No destructive osseous lesion or axillary lymphadenopathy. Procedure Note Interface, Radiant Results - 01/02/2019 12:[address] scan of the chest Clinical history: Persistent anteriorly on right Technique: Multiple contiguous axial images were obtained through the chest after the IV administration of Omnipaque 350 contrast material. Image postprocessing coronal and sagittal reconstructions were obtained from the source axial data. Comparison: Prior chest x-ray obtained earlier the same day at 0816 hours Findings: Heart and great vessels: Unremarkable Mediastinum and pulmonary shad: No lymphadenopathy. Persistent leftward shift of the mediastinal structures. Central airways, lungs, and pleura: The central airways are unremarkable. Moderate emphysema is present within the lungs. Scarring and volume loss are redemonstrated within the left upper lobe. Small bilateral pleural effusions are noted. There is mild dependent atelectasis within both lower lobes. Note is again made of a large right pneumothorax. The indwelling thoracostomy tube remains in similar position terminating along the posterior margin of the right upper lobe. Upper abdomen: Unremarkable Osseous structures and chest wall: The patient is osteopenic. No destructive osseous lesion or axillary lymphadenopathy. IMPRESSION 1. Large right hydropneumothorax with indwelling thoracostomy tube. 2. Scarring and volume loss within the left upper lobe. There is leftward shift of the mediastinal structures which is likely due to the volume loss within the left upper lobe. Additionally, mass effect from the right pneumothorax could also be contributing to the mediastinal shift. 3. Moderate emphysema. Finalized by Thomas Luther D.O. on 01/02/2019 12:40 PM. Dictated by Thomas Luther D.O. on 01/02/2019 12:00 PM. Performing Organization Address City/[facility] Phone Number RAD RESULTS * TROPONIN-I (01/01/2019 6:40 PM CDT) Only the most recent of 2 results within the time period is included. Troponin-I <0.03 0.0 - 0.05 NG/ML MAIN LAB Specimen Blood Performing Organization Address City/[facility] Phone Number MAIN LAB [address] [place] [address] * PROCALCITONIN (01/01/2019 4:35 PM CDT) Procalcitonin 0.02 <0.10 NG/ML MAIN LAB Specimen Blood Performing Organization Address [facility] Phone Number MAIN LAB [address] [place] [id number] * BLOOD BANK SAMPLE HOLD (01/01/2019 4:35 PM CDT) BB Sample hold IN LAB MAIN LAB Performing Organization Address [facility] Phone Number MAIN LAB [address] [place] [address] * LACTIC ACID (BG - RAPID LACTATE) (01/01/2019 4:35 PM CDT) Lactic Acid,BG 1.0 0.5 - 2.0 MMOL/L MAIN LAB Specimen Blood Performing Organization Address [facility] Phone Number MAIN LAB [address] [place] [address] * BNP (B-TYPE NATRIURETIC PEPTI) (01/01/2019 4:35 PM CDT) B Type 36.0 0 - 100 PG/ML MAIN LAB Natriuretic Peptide Specimen Blood Performing Organization Address [facility] Phone Number MAIN LAB [address] [place] [address] * GENERAL RAD CHEST EXTERNAL IMAGING (01/01/2019 12:00 AM CDT) Narrative Performed At This order has been auto finalized and does not contain a result. * TELEMETRY STRIPS-SCAN (01/01/2019 12:00 AM CDT) Narrative Performed At Ordered by an unspecified provider. * TELEMETRY STRIPS-SCAN (01/01/2019 12:00 AM CDT) Narrative Performed At Ordered by an unspecified provider. * TELEMETRY STRIPS-SCAN (01/01/2019 12:00 AM CDT) Narrative Performed At Ordered by an unspecified provider. * TELEMETRY STRIPS-SCAN (01/01/2019 12:00 AM CDT) Narrative Performed At Ordered by an unspecified provider. * TELEMETRY STRIPS-SCAN (01/01/2019 12:00 AM CDT) Narrative Performed At Ordered by an unspecified provider. * TELEMETRY STRIPS-SCAN (01/01/2019 12:00 AM CDT) Narrative Performed At Ordered by an unspecified provider. * TELEMETRY STRIPS-SCAN (01/01/2019 12:00 AM CDT) Narrative Performed At Ordered by an unspecified provider. * TELEMETRY STRIPS-SCAN (01/01/2019 12:00 AM CDT) Narrative Performed At Ordered by an unspecified provider. * TELEMETRY STRIPS-SCAN (01/01/2019 12:00 AM CDT) Narrative Performed At Ordered by an unspecified provider. * ECG-SCAN (01/01/2019 12:00 AM CDT) Narrative Performed At Ordered by an unspecified provider. * ECG-SCAN (01/01/2019 12:00 AM CDT) Narrative Performed At Ordered by an unspecified provider. * CONSULT IV THERAPY TEAM (01/01/2019 12:00 AM CDT) Narrative Performed At from Last 3 Months Insurance Type Payer Benefit Subscriber ID Effective Phone Address Plan / Dates Group Medicare MEDICARE MEDICARE xxxxxxxxxxx 2008-P PART A AND resent B Indemnity GENERIC COMMERCIAL GENERIC xxxxxxxxxx 2011-P COMMERCIAL resent Advance Directives Patient has advance care planning documents, and code status on file. For more i nformation, please contact: [address] [address] Date Inactivated Comments Code Status Date Activated 01/16/2019 2:04 PM Full Code 01/01/2019 6:52 PM Provider has discussed Code Status Yes w/Patient or Family? 01/01/2019 6:52 PM Full Code 01/01/2019 4:29 PM Provider has discussed Code Status No, more discussion w/Patient or Family? needed
--- OUTSIDE RECORDS SUMMARY | 2019-01-23 09:14 | XMS REPORT | Encounter Summary ---
Author Author [facility] Organization [facility] Address Unknown Phone Unavailable Care Team Providers Care Inspector Casing Name Role Phone No Pcp, Na PCP Unavailable Obed Zelaya MD PCP Reason for Visit * Auth/Cert Referred By Contact Referred To Contact Status Reason Specialty Diagnoses / Procedures Diagnoses Acute respiratory failure with hypoxia (HCC) Respiratory Distress Encounter Details Care Team Description Date Type Department Aashish Murphy MD [address] [facility] L[address] [place] [id number] [phone] Layne Jaimes MD [address] [facility] [address]vl [address] [place] [address] Nasir Arellano MD [address] [facility] Lvl [address] [place] [address] [phone] Jermaine Dean MD [address] [place] [address] [phone] Alirio Cuevas MD [address] [address] [phone] Pneumothorax on right 01/01/2019 [facility] 01/16/2019 [address] [place] [address] Social History Date Tobacco Use Types Packs/Day [...] Travel Start No recent travel history available. documented as of this encounter Last Filed Vital Signs Time Taken Vital [...] 4:24 AM CDT Body Mass Index 16.93 documented in this encounter Functional Status Date of Assessment Functional Status Response 01/03/2019 Does the patient have a hearing impairment: Yes documented as of this encounter Discharge Summaries * Neo Saenz MD - 01/07/2019 2:31 PM CDT Physician Discharge Summary Name: Yun Booker Date Of : 1945 Age: 73 years Admit date: 01/01/2019 Discharge date: 01/16/2019 Attending Physician: Alirio Cuevas, * Physician Summary completed by: ISAIAS Gardner Reason for hospitalization: Acute respiratory failure with hypoxia (HCC) [J96.01 ] Significant PMH: Medical History: Diagnosis Date Bullous emphysema with collapse (HCC) COPD (chronic obstructive pulmonary disease) (HCC) Pneumothorax, right Allergies: Patient has no known allergies. Admission Physical Exam notable for: Acute respiratory failure with hypoxia (HC C) [J96.01] Brief Hospital Course: Yun Booker was transferred to [facility] 01/01/19 for spontaneous pneumothorax secondary to bullae rupture with heimlich chest tube already in place. The medicine team consulted thoracic surg mo and the patient underwent a right thoracoscopic exploration with mechanical pleurodesis under the care of Alirio Cuevas, * on 01/05/19. The patient underwent the procedure and tolerated it well. Post op she went to the cardiotho racic intensive care unit. Was extubated POD#2, and transferred to tele unit on HC4 where she was monitored the rest of her inpatient stay. The patient's [facility] hospital course was uneventful. She increased her activity and oral intake d aily. Chest tubes remained to continuous suction several days post op. Glucose p leurodesis was performed POD# 8, but chest tubes continued to demonstrate an air leak. On POD# 10 the chest tubes were converted to heimlich valves. Routine ch est xray's remained stable. The patient had normal bowel and bladder function. Yun Booker was stable to be discharged home on post operative day # 11. She continued to require supplemental oxygen and is being [facility]. This was all arranged by our case management and [facility] work team members. She will be discharged with 3 more days of ciprofloxacin to cover her UTI. It did culture positive for pseudomonas, will plan to follow up on sensitivities and change antibiotic as appropriate. She will have close fol low up with Dr. Cuevas in clinic to determine when heimlich valve chest tubes can be removed. Condition at Discharge: Stable Discharge Diagnoses: Hospital Problems Active Problems * (Principal) Pneumothorax on right Acute respiratory failure with hypoxia (HCC) Bullous emphysema with collapse (HCC) On mechanically assisted ventilation (HCC) Other emphysema (HCC) Severe malnutrition (HCC) Surgical Procedures: RIGHT VIDEO ASSISTED THORACOSCOPY WITH MECHANICAL PLEURODESIS (Right) THORACOTOMY WITH EXPLORATION Significant Diagnostic Studies and Procedures: noted in brief hospital course Consults: Anesthesiology Patient Disposition: Home Patient instructions/medications: CHEST 2 VIEWS Standing Status: Future Standing Exp. Date: 01/16/20 Reason for exam:(Sign,Symptom,Reason) s/p Right VAT pleurodesis; evaluate chest tubes Other Activity Restrictions -You should and need to walk daily. Your goal is to walk 30 minutes at at time without stopping for breaks. This is a daily exercise routine that you should st art as soon as you arrive home. Your basic daily activities do not count toward your 30 minute minimum, e.g. housework, toileting, fixing meals. Do not exercise outside in extremely hot or cold temperatures. -Bathing: NO tub baths, hot tubs, or swimming for 6 weeks. You may shower at any time. -Driving: NO driving for 2 weeks or while taking narcotics -Lifting: NO lifting more than 10 pounds (gallon of milk) for 6 weeks. Activity as Tolerated It is important to keep increasing your activity level after you leave the hosp ital. Moving around can help prevent blood clots, lung infection (pneumonia) an d other problems. Gradually increasing the number of times you are up moving ar ound will help you return to your normal activity level more quickly. Continue to increase the number of times you are up to the chair and walking daily to ret urn to your normal activity level. Begin to work toward your normal activity lev el at discharge Regular Diet You have no dietary restriction. Please continue with a healthy balanced diet. Incision Care *Keep your incision clean and dry. *Shower daily, do not merge incision in tub, pool, hot tub, or carrillo for 6 weeks. *Wash incisions with soap and water only. Do NOT apply lotions or creams (includ ing antibiotic ointments) to your incision unless instructed to do so by your [facility] care team. *Cover incisions with a clean, dry gauze dressing only if there is drainage from your incision. *If there is a stitch to be removed this will be removed at your follow up appt. Surgical adhesive will begin to fall off in 10-14 days. *Your incision should gradually look better each day. If you notice unusual swel ling, redness, drainage, have increasing pain at the site, or have a fever great er than 100 degrees, notify your physician immediately. Report These Signs and Symptoms * Fever greater than 101 degrees * Excessive redness of your incisions * Colored drainage (yellow or green), bloody drainage, or odorous drainage from your incisions. It is normal to have a small amount of clear, pink, or brown-tin ged drainage. If you have any concerns, call the surgeon's office. * Uncontrolled pain * Increased difficulty swallowing, uncontrolled nausea, vomiting, or diarrhea * Vomiting blood or bloody stools * Chest pain or back pain that is new and not controlled with pain medication * Increased difficulty breathing Return Appointment Chest xray at 2:00pm. With appointment to follow at 3:00pm. Where do I go for my x-ray? Enter the main hospital entrance Go past the information desk, past the escalators, to the six-pack of elevators. (If you reach the cafeteria you have gone too far!) Take the elevator to the 2nd floor. Follow the sign for "General Radiology" - you will go down a short hallway. Once your x-ray is complete, return to the main floor and check-in for your appo intment at the [facility] located by the main entrance. [facility] Provider ALIRIO CUEVAS [[id number]] Location [facility] Appointment date: 01/27/2019 Appointment time: 2:00 PM Opioid (Narcotic) Safety Information OPIOID (NARCOTIC) PAIN MEDICATION SAFETY We care about your comfort, and believe you need opioid medications at this time to treat your pain. An opioid is a strong pain medication. It is only availab le by prescription for moderate to severe pain. Usually these medications are u sed for only a short time to treat pain, but sometimes will be prescribed for lo nger. Talk with your doctor or nurse about how long they expect you to need thi s medication. When used the right way, opioids are safe and effective medications to treat you r pain, even when used for a long time. Yet, when used in the wrong way, opioid s can be dangerous for you or others. Opioids do not work for everyone. Most p atients do not get full relief of their pain from opioid medication; full relief of your pain may not be possible. For your safety, we ask you to follow these instructions: *Only take your opioid medication as prescribed. If your pain is not controlled with the prescribed dose, or the medication is not lasting long enough, call yo doctor. *Do not break or crush your opioid medication unless your doctor or pharmacist s ays you can. With certain medications, this can be dangerous, and may cause kala th. *Never share your medications with others, even if they appear to have a good re ason. Never take someone else's pain medication-this is dangerous, and illegal (a crime). Overdoses and deaths have occurred. *Keep your opioid medications safe, as you would with hernandez, in a lock box or sim ilar container. *Make sure your opioids are going to be secure, especially if you are around chi ldren or teens. *Talk with your doctor or pharmacist before you take other medications. *Avoid driving, operating machinery, or drinking alcohol while taking opioid nereida n medication. This may be unsafe. Pain medications can cause constipation. Constipation is bowel movements that ar e less often than normal. Stools often become very hard and difficult to pass. T his may lead to stomach pain and bloating. It may also cause pain when trying to use the bathroom. Constipation may be treated with suppositories, laxatives or stool softeners. A diet high in fiber with plenty of fluids helps to maintain re gular, soft bowel movements. Questions About Your Stay For questions or concerns regarding your hospital stay. Call [phone] Discharging attending physician: ALIRIO CUEVAS [[id number]] Chest Tube Alf care instructions: FOR TRUCK HOPPER ONLY: *The tube must be attached to drainage system at all times. Empty drainage cont ainer as instructed by healthcare staff. *Dressing needs to be changed daily. *May shower. Cover your chest tubes/dressing with occlusive dressing. Do not soa k chest tube in water. *If you start to have trouble breathing, report to your local emergency departme nt as this could be a serious medical problem. *If chest tube is pulled out, DO NOT PUSH BACK IN. Go to the nearest emergency r oom. Other Information Oxygen requirements: - 1 lpm of supplemental oxygen at rest - 6lpm with exercise to maintain oxygenation Report These Signs and Symptoms Please contact your doctor if you have any of the following symptoms: temperatu re higher than 100 degrees F, uncontrolled pain, persistent nausea and/or vomiti ng, difficulty breathing, chest pain, severe abdominal pain, headache, unable to urinate, unable to have bowel movement or drainage with a foul odor Questions About Your Stay For questions or concerns regarding your hospital stay, call [phone]. Discharging attending physician: ALIRIO CUEVAS [[id number]] Regular Diet You have no dietary restriction. Please continue with a healthy balanced diet. Chest Tube Alf care instructions: Continue chest tubes with attachment to Heimlich valve which is then connected t o the leukins trap. Empty leukins trap as needed. FOR TRUCK HOPPER ONLY: *If you have a chest tube, do not remove the dressing, change the tube, or ball e the drainage canister in any way. *The tube must be attached to drainage system at all times. Empty drainage cont ainer as instructed by healthcare staff. *If you start to have trouble breathing, report to your local emergency departme nt as this could be a serious medical problem. *If chest tube is pulled out, DO NOT PUSH BACK IN. Go to the nearest emergency r oom. Return Appointment [facility] Provider ALIRIO CUEVAS [[id number]] Appointment date: 01/27/2019 Appointment time: 3:00 PM Current Discharge Medication List START taking these medications Details acetaminophen (TYLENOL) 325 mg tablet Take two tablets by mouth every 4 hours as needed. Refills: 0 PRESCRIPTION TYPE: OTC albuterol 0.083% (PROVENTIL; VENTOLIN) 2.5 mg /3 mL (0.083 %) nebulizer solution Inhale 3 mL solution by nebulizer as directed every 4 hours as needed for Wheez ing or Shortness of Breath. Qty: 180 mL, Refills: 3 PRESCRIPTION TYPE: Normal ciprofloxacin (CIPRO) 250 mg tablet Take one tablet by mouth twice daily. Qty: 6 tablet, Refills: 0 PRESCRIPTION TYPE: Print folic acid (FOLVITE) 1 mg tablet Take one tablet by mouth daily. Qty: 90 tablet, Refills: 3 PRESCRIPTION TYPE: Normal guaiFENesin LA (MUCINEX) 600 mg tablet Take one tablet by mouth three times alexy y. Qty: 180 tablet, Refills: 0 PRESCRIPTION TYPE: Normal polyethylene glycol 3350 (MIRALAX) 17 g packet Take one packet by mouth daily. Qty: 12 each PRESCRIPTION TYPE: OTC senna/docusate (SENOKOT-S) 8.6/50 mg tablet Take two tablets by mouth twice alexy y. Refills: 0 PRESCRIPTION TYPE: OTC thiamine mononitrate 100 mg tablet Take one tablet by mouth daily. PRESCRIPTION TYPE: OTC traMADol (ULTRAM) 50 mg tablet Take one tablet to two tablets by mouth every 6 h ours as needed. Qty: 30 tablet, Refills: 0 PRESCRIPTION TYPE: Print CONTINUE these medications which have NOT CHANGED Details cyanocobalamin (VITAMIN B-12, RUBRAMIN) 1,000 mcg/mL injection Inject 1,000 mcg into the muscle. Every 2 months PRESCRIPTION TYPE: Historical Med fluticasone-vilanterol(+) (BREO ELLIPTA) 100-25 mcg inhalation disk Inhale 1 puf f by mouth into the lungs daily. PRESCRIPTION TYPE: Historical Med umeclidinium(+) (INCRUSE ELLIPTA) 62.5 mcg/actuation inhalation disk Inhale 1 pu ff by mouth into the lungs daily. PRESCRIPTION TYPE: Historical Med vitamins, multi w/minerals 9 mg iron-400 mcg tab Take 1 tablet by mouth daily. PRESCRIPTION TYPE: Historical Med Pending items needing follow up: Chest tubes Oxygen Signed: SCOTT Gardner 01/07/2019 cc: Primary Care Physician: Obed Zelaya Referring physicians: Earle Puri MD Additional provider(s): documented in this encounter Medications at Time of Discharge Start Date End Date Medication Sig Dispensed Refills 01/16/2019 acetaminophen (TYLENOL) Take two 0 325 mg tablet tablets by mouth every 4 hours as needed. 01/16/2019 albuterol 0.083% Inhale 3 mL 180 mL 3 (PROVENTIL; VENTOLIN) 2.5 solution by mg /3 mL (0.083 %) nebulizer as nebulizer solution directed every 4 hours as needed for Wheezing or Shortness of Breath. 01/16/2019 ciprofloxacin (CIPRO) 250 Take one 6 tablet 0 mg tablet tablet by mouth twice daily. cyanocobalamin (VITAMIN Inject 1,000 0 B-12, RUBRAMIN) 1,000 mcg into the mcg/mL injection muscle. Every 2 months fluticasone-vilanterol(+) Inhale 1 puff 0 (BREO ELLIPTA) 100-25 mcg by mouth into inhalation disk the lungs daily. 01/16/2019 folic acid (FOLVITE) 1 mg Take one 90 tablet 3 tablet tablet by mouth daily. 01/16/2019 guaiFENesin LA (MUCINEX) Take one 180 tablet 0 600 mg tablet tablet by mouth three times daily. 01/16/2019 polyethylene glycol 3350 Take one 12 each 0 (MIRALAX) 17 g packet packet by mouth daily. 01/16/2019 senna/docusate Take two 0 (SENOKOT-S) 8.6/50 mg tablets by tablet mouth twice daily. 01/16/2019 thiamine mononitrate 100 Take one 0 mg tablet tablet by mouth daily. 01/16/2019 traMADol (ULTRAM) 50 mg Take one 30 tablet 0 tablet tablet to two tablets by mouth every 6 hours as needed. umeclidinium(+) (INCRUSE Inhale 1 puff 0 ELLIPTA) 62.5 by mouth into mcg/actuation inhalation the lungs disk daily. vitamins, multi Take 1 tablet 0 w/minerals 9 mg iron-400 by mouth mcg tab daily. documented as of this encounter Progress Notes * Claudia Last RN - 01/16/2019 11:39 AM CDT Assumed pt care at 0700. VSS per trend, A&Ox4, tolerating 1-3L NC, SR/ST on tele. Denies pain, n/v. SOA on exertion. UOP adequate. - BM during shift, + bowel sounds. Last BM 01/15. Incisions/dressings C/D/I. CT #1 and #2 both to heimlich valves today. Dressings and valves changed. Demons tration provided to pt and family. High fall risk bundle in place, call light within reach, will cont to monitor. 1130-DC orders in and reviewed with pt. Denies questions or concerns. IV and tel e dc'd. Assited off unit. * Neo Saenz MD - 01/16/2019 7:22 AM CDT CARDIOTHORACIC SURGERY DAILY PROGRESS NOTE PROCEDURE: RIGHT VIDEO ASSISTED THORACOSCOPY WITH MECHANICAL PLEURODESIS: 25651 (CPT) THORACOTOMY WITH EXPLORATION, WITH CREATION OF PNEUMO-PERITONEUM: 55045 (CPT) POD #: 11 SUBJECTIVE: Resting in bed. Denies discomfort or SOA. Overnight events: None. ASSESSMENT: Active Hospital Problems Diagnosis Pneumothorax on right Severe malnutrition (HCC) On mechanically assisted ventilation (HCC) Other emphysema (HCC) Acute respiratory failure with hypoxia (HCC) Bullous emphysema with collapse (HCC) PLAN: Neuro Alert and oriented. Resting in bed. Pain control with PRN oxycodone, t ramadol and with scheduled Tylenol. CV SR 70-90s, SBP 115-130s, no SILK TRIMMER cardiac medications. Resp Daily CXR lungs expanded, unchanged from previous. On 2lpm O2 at re st, 6L with exercise. Wean O2 as able. Continue IS, aggressive pulm toilet. Ches t tubes in place, continue heimlich valvues. Glucose pleurodesis x2 01/13. Contin ue mucomyst, saline nebs, albuterol, Advair, and singulair, continue vest therap y. Renal Scr 0.42. Monitor BMP, assess for CAROLINE. UOP 700 cc / 24hr. UA sent for cloudy urine and decreased output. UA positive. Started on cipro 01/14. GI - Regular diet, + BM 01/14, continue post op bowel regimen. ID Afebrile, WBC 5.5. (checking labs QOD) Cipro 250 mg BID for UTI. Culture for pseudomonas, sensitivities pending, will follow and change antibiotics if in dicated Heme Hgb 11.0, Hct 34. Cont SQ heparin, continue mechanical prophylaxis. FEN If creatinine < 2.0, replace Mg and K per CTS post op protocol. Activity Up with SBA, OOBTC, walk TID, progress mobility as tolerated. Disposition - Heimlich valve to both chest tubes today. Discharge today with cip rofloxacin, Will follow up on sensitivities and adjust as appropriate. OBJECTIVE: Vitals: 01/15/19 1916 01/15/19 2307 01/16/19 0425 01/16/19 0718 BP: 117/67 121/61 120/64 124/63 Pulse: 77 91 90 83 Temp: 36.6 C (97.9 F) 36.8 C (98.2 F) 36.8 C (98.2 F) 36.7 C (98 F) SpO2: 96% 96% 96% 95% Weight: 42 kg (92 lb 9.6 oz) Height: Physical Exam: General: A&O x 3 Cardiovascular: RRR no rub or murmur Respiratory: LS CTA rocky, Right CT's with heimlich valve connected to leukins tra p, s/s output. GI: soft, NT, +BS Extremities: No Edema Incisions: right VAT incision clean, dry, intact with drsg, Other incision C/D/I with surgical adhesive Prophylaxis Review: Lines: No Antibiotic Usage: No VTE: Pharmacological prophylaxis; SQ Heparin and Mechanical prophylaxis; Sequen tial compression device Urinary Catheter: No LABS: 24-hour labs: Results for orders placed or performed during the hospital encounter of 01/01/19 (from the past 24 hour(s)) CBC Collection Time: 01/16/19 4:20 AM Result Value Ref Range White Blood Cells 5.5 4.5 - 11.0 K/UL RBC 3.33 (L) 4.0 - 5.0 M/UL Hemoglobin 11.0 (L) 12.0 - 15.0 GM/DL Hematocrit 34.0 (L) 36 - 45 % MCV 102.1 (H) 80 - 100 FL MCH 33.1 26 - 34 PG MCHC 32.5 32.0 - 36.0 G/DL RDW 14.2 11 - 15 % Platelet Count 442 (H) 150 - 400 K/UL MPV 6.5 (L) 7 - 11 FL BASIC METABOLIC PANEL Collection Time: 01/16/19 4:20 AM Result Value Ref Range Sodium 138 137 - 147 MMOL/L Potassium 4.0 3.5 - 5.1 MMOL/L Chloride 104 98 - 110 MMOL/L CO2 29 21 - 30 MMOL/L Anion Gap 5 3 - 12 Glucose 94 70 - 100 MG/DL Blood Urea Nitrogen 7 7 - 25 MG/DL Creatinine 0.42 0.4 - 1.00 MG/DL Calcium 8.6 8.5 - 10.6 MG/DL eGFR Non >60 >60 mL/min eGFR >60 >60 mL/min Neo Saenz DO General Surgery PGY-3 * Dorothy Doe RN - 01/16/2019 5:34 AM CDT Assumed patient care at 1900 VS stable, SR/ ST c ambulation on tele 1-3L NC at rest, 6 L NC with ambulation Adequate urine output -BM this shift CT x 2 both to heimlich valves, dressings CD/I No other concerns at this time, will continue to monitor * Claudia Last RN - 01/15/2019 6:37 PM CDT Assumed pt care at 0700. VSS per trend, A&Ox4, tolerating 1-3L NC, SR/ST on tele. Denies pain, n/v. SOA on exertion. UOP adequate. BM x3 during shift. Incisions/dressings C/D/I. CT #1 and #2 both to heimlich valves today. Encouraging ambulation. High fall risk bundle in place, call light within reach, will cont to monitor. 1830-No changes or acute events during shift. Will cont to monitor and handoff t o night RN. * Edwardo Joseph, RT - 01/15/2019 3:19 PM CDT RT Adult Assessment Note NAME:Yun Booker :1945 AG E: 73 y.o. ADMISSION DATE: 01/01/2019 DAYS ADMITTED: LOS: 14 days RT Treatment Plan: Protocol Plan: Medications Albuterol: Neb TID Tiotropium: MDI Q Day Acetylcysteine: Neb PRN Protocol Plan: Procedures Vest Airway Clearance: TID IPPB: Place a nursing order for "IS Q1h While Awake" for any of Lung Expansion i ndicators Oxygen/Humidity: O2 to keep SpO2 > 92% Monitoring: Pulse oximetry BID & PRN Vital Signs: Pulse: RR: SpO2: O2 Device: Cannula Liter Flow: 2 Lpm O2%: Breath Sounds: Clear (implies normal);Decreased Respiratory Effort: * Matilde Ayala - 01/15/2019 12:42 PM CDT CLINICAL NUTRITION Clinical Nutrition Follow-Up Summary NAME:Yun Booker :1945 AG E: 73 y.o. ADMISSION DATE: 01/01/2019 DAYS ADMITTED: LOS: 14 days Nutrition Assessment of Patient: Malnutrition Assessment: Malnutrition present Current Oral Intake: Improving, Adequate Estimated Calorie Needs: 1470 (35 kcal/kg wt 42 kg) Estimated Protein Needs: 63-84g (1.5-2 g/kg wt 42 kg) Oral Diet Order: Regular ICD-10 code E43: Acute illness/Severe malnutrition Energy intake: < 50% of estimated energy requirement for 5 days or more, Weight loss: > 5% x 1 month, Moderate loss of body fat Loss of Subcutaneous Fat: Yes Moderate Triceps Muscle Wasting: Yes Mild Clavicle, Shinto, Deltoid Edema: No Malnutrition Interventions: Encouraged good PO intakes of meals and supplements Comments: 73 yo F with COPD, bullous emphysema s/p PRICILLA bullectomy and parital pneumonectom y (1977), who was recently admitted to [facility] in [place], [place] (~5 wks ago) with acute chest pain, found to have spontaneous right pneumothorax after bullae rupture, s/p CTX with Heimlich Valve; treated for PNA. (discharged 12/21/18) She was re-ho spitalized there 01/01/19 after her initial stay with worsening hypoxia and persi stent pneumothorax. Transferred to [facility] that same day for CTS evaluation. Pt n ow s/p VAT with mechanical pleurodesis, s/p thoracotomy with exploration, creati on of pneumo-peritoneum on 01/05.Extubated 01/06 and diet advanced to regular. Lore lynnette reports good tolerance of diet. Continues to eat small, frequent meals. Goo d bowel function. She is hopeful to d/c tomorrow. Encouraged continued good PO i ntakes Recommendation: Continue Regular diet. Encourage intake of Magic Cup at hs snack. Encourage small, frequent meals. Intervention / Plan: Monitor diet tolerance/adequacy of po intakes Monitor wt trends, GI function, pertinent labs/meds. Nutrition Diagnosis: Malnutrition Etiology: lack of appetite, respiratory issues past month Signs & Symptoms: diet history, +muscle/fat loss, 12.9% wt loss in past month Goals: Patient to consume >85% of meals/supplements Time Frame: Within 72 hours Status: Partially met;Ongoing Matilde Ayala RD, TI Pager: [phone] * Cate Mackay, PT - 01/15/2019 10:47 AM CDT PHYSICAL THERAPY NOTE Patient just performed exercise oximetry with RT. Will follow up later and chuckie nue to provide intervention as indicated. Therapist: Cate Mackay, PT, DPT Date: 01/15/2019 * Edwardo Joseph, RT - 01/15/2019 10:41 AM CDT RT Exercise Oximetry Note NAME:Yun Booker :1945 AGE: 73 y.o. ADMISSION DATE: 01/01/2019 DAYS ADMITTED: LOS: 14 days Date performed: 01/15/19 Time performed: 1019 Time walked: 6 minutes At Rest While Awake Results Room air at rest while awake: SpO2=87% Oxygen dose required at rest while awake: 1 lpm with resulting SpO2=90% With Exercise Results: Oxygen required with exercise: SpO2 at 1 liters per minute=83% SpO2 at 2 liters per minute=84% SpO2 at 3 liters per minute=84% SpO2 at 4 liters per minute=86% SpO2 at 5 liters per minute=88% If required oxygen dose with exercise is greater than 5 lpm: SpO2 @ 6 lpm=91% Comments: patient required 1lpm of supplemental O2 at rest and 6lpm with exercis e to maintain Spo2 greater than or equal to 89% during exercise oximetry. Therapist: RT Aaron * Eva Shelton APRN-BACK GRINDER - 01/15/2019 8:08 AM CDT CARDIOTHORACIC SURGERY DAILY PROGRESS NOTE PROCEDURE: RIGHT VIDEO ASSISTED THORACOSCOPY WITH MECHANICAL PLEURODESIS: 38852 (CPT) THORACOTOMY WITH EXPLORATION, WITH CREATION OF PNEUMO-PERITONEUM: 21567 (CPT) POD #: 10 SUBJECTIVE: Resting in bed. Denies discomfort or SOA. Overnight events: None. ASSESSMENT: Active Hospital Problems Diagnosis Pneumothorax on right Severe malnutrition (HCC) On mechanically assisted ventilation (HCC) Other emphysema (HCC) Acute respiratory failure with hypoxia (HCC) Bullous emphysema with collapse (HCC) PLAN: Neuro Alert and oriented. Resting in bed. Pain control with PRN oxycodone, t ramadol and with scheduled Tylenol. CV SR 70-90s, SBP 115-130s, no SILK TRIMMER cardiac medications. Resp Daily CXR lungs expanded, unchanged from previous. On 3lpm O2 at re st, 6L with exercise. Wean O2 as able. Continue IS, aggressive pulm toilet. Ches t tubes in place, air leak noted in #1. Transition both to heimlich valves today . Glucose pleurodesis x2 01/13. Continue mucomyst, saline nebs, albuterol, Advair , and singulair, continue vest therapy. Obtain ex ox later today. Renal Scr 0.38. Monitor BMP, assess for CAROLINE. UOP 1.2 L / 24hr. UA sent for c loudy urine and decreased output. UA positive. Started on cipro 01/14. GI - Regular diet, + BM 01/14, continue post op bowel regimen. ID Afebrile, WBC 9.1. (checking labs QOD) Cipro 250 mg BID for UTI. Culture and sensitivities pending, will follow. Heme Hgb 11.0, Hct 33.6. Cont SQ heparin, continue mechanical prophylaxis. FEN If creatinine < 2.0, replace Mg and K per CTS post op protocol. Activity Up with SBA, OOBTC, walk TID, progress mobility as tolerated. Disposition - Heimlich valve to both chest tubes today, obtain 2 view CXR after, then obtain ex ox. Continue to monitor inpatient for the next couple days. OBJECTIVE: Vitals: 01/14/19 2207 01/15/19 0400 01/15/19 0424 01/15/19 0745 BP: 134/61 121/58 122/66 Pulse: 81 74 94 Temp: 36.5 C (97.7 F) 36.6 C (97.9 F) 36.6 C (97.9 F) SpO2: 98% 98% 93% 93% Weight: 42.3 kg (93 lb 3.2 oz) Height: Physical Exam: General: A&O x 3 Cardiovascular: RRR no rub or murmur Respiratory: LS CTA rocky, Right CT's x2 to water seal, s/s output, + air leak in tube #1 GI: soft, NT, +BS Extremities: No Edema Incisions: right VAT incision clean, dry, intact with drsg, Other incision C/D/I with surgical adhesive Prophylaxis Review: Lines: No Antibiotic Usage: No VTE: Pharmacological prophylaxis; SQ Heparin and Mechanical prophylaxis; Sequen tial compression device Urinary Catheter: No Chest Tubes OUTPUT/24 HOURSAIR LEAK PRESENT Pleural #1 30 yes Pleural #2 90 no LABS: 24-hour labs: No results found for this visit on 01/01/19 (from the past 24 hour(s)). ISAIAS Gardner-C Pager [phone] * Ada Denny, ELIAS - 01/15/2019 5:51 AM CDT Assumed care at 1900. A&Ox4. VSS per pt trend. Tolerating 2-3L via NC while sitting/laying down, requiring 1-2L extra w/ ambulation, denies SOA. SR on tele overnight. Pain well controlled via current regimen. Denies N/V. Surgical incisions CDI. CT's to WS, CT #1 w/ 10 mLs serous total output (serosa nguinous in atrium), and CT #2 no output overnight. Last BM 01/14/19. Adequate UOP overnight. HFR bundle in place. Eager for d/c. No other needs voiced at this time. Call light within reach. Assessments comp leted and documented per flowsheet. * Claudia Last, ELIAS - 01/14/2019 6:30 PM CDT Assumed pt care at 0700. VSS per trend, A&Ox4, tolerating 3L NC, SR/ST c occasional PVCs on tele. Denies pain, n/v. UOP adequate. BM x2 during shift. Incisions/dressings C/D/I. CT #1 to water seal with 20ml SS output during shift. CT #2 to water seal with 9 0ml SS output during shift. High fall risk bundle in place, call light within reach, will cont to monitor. 1345-Pt sats 88% on 3L. Turned up to 4L, still satting 87-88%. Pt states she coleman s not feel short of breath. Eva BACK GRINDER at bedside. CXR and additional vest tx ord ered. Will cont to monitor. 1430-Post vest TX and sitting up in chair pt's sats improved. Speech consulted t o r/o aspiration. Will cont to monitor. 1830-Pt tolerating 3L NC again. No other events/changes during shift. Will cont to monitor and handoff and to night RN. * Ember Davila - 01/14/2019 3:27 PM CDT SPEECH-LANGUAGE PATHOLOGY CLINICAL SWALLOW ASSESSMENT EVALUATION SUMMARY Summary: Aclinical swallow eval was completed. The pt presented w/ a normal or opharyngeal swallow. See below for additional documentation. RECOMMENDATIONS: Continue w/ regular solids w/ thin liquids. Ongoing speech tx is not indicated. Discussed pt w/ RN. Oral Stage Summary*: Within normal limits characterized by, normal bolus w/draw, formation, & transfer. Mastication of regular solids complete w/o oral residue. Pharyngeal Stage Summary*: Judged to be within normal limits however should be n oted unable to directly visualize the pharyngeal phase of swallow during clinica l examination. Swallow initiation & laryngeal elevation judged to be WNL upon completion of laryngeal palpation. Overt s/s aspiration not observed w/ thin liquids, puree or regular solids. Pt was not observed to get short of breath w/ p.o. Intake, however, as eating requires physical movement/exertion anticiapte w/ her current respiratory status she may desat w/ p.o. intake. Pt w/ good awareness to take breaks w/ p.o. intake, consume smaller meals/frequent snacks to minimze fatigue. Should be noted there is not currently research documenting there is a correlation between desaturation & aspiration. Plan: Patient Functioning at Baseline. No Further Speech Therapy Indicated at th is Time. Prognosis: Good NOMS Dysphagia Ratin-Normal -Ability to eat indep not limited by swallow fun ction. Swallow safe/efficient for all consistencies. Compensatory strategies eff ectively used when needed. Results Reported to Physician: Yes(via EMR) Objective* Relevant Med Background: h/o COPD, bullous emphysema s/p PRICILLA bullectomy and part ial pneumonectomy (1977) who recently was admitted in [place] with a spontanous R IGHT pneumothorax from bulla rupture and has a RIGHT chest tube with heimlich va lve in place- admit from OSH for worsening hypoxia and was found to have persis tent pneumothorax; s/p talc pleurodesis 01/05. IMPRESSION CXR 1. Slight increase in multiloculated right hydropneumothorax with apical and basal components. Chest tubes remain in place. 2. Unchanged patchy right upper and left basal consolidation. 3. 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[employer]) Psychosocial Status: Willing and Cooperative to Participate Persons Present: None Subjective* Pain: Patient has no complaint of pain Pain Level Current*: No pain Trach Presence: No Feeding Tube Present During Eval: None Nutrition* Nutrition Prior To Hospitalization: Regular, Thin Liquids Current Form Of Nutrition: Thin Liquids, Regular Oral Mech Exam Oral Mech WFL*: Yes Swallow Strategies Small Bites and Sips: Effective Education* Persons Educated: Patient Barriers To Learning: None Noted Interventions: Staff Educated Teaching Methods: Verbal Topics: Dysphagia Patient Response: Verbalized Understanding Goal Formulation: With Patient Therapist:Ember Davila MA, L/CCC-RUG DYER HELPER Voalte: [id number] Date:01/14/2019 * Jana Rabago, ANDREY - 01/14/2019 3:09 PM CDT OCCUPATIONAL THERAPY PROGRESS/DISCHARGE NOTE Patient Name: Yun Booker Room/Bed: [place] [address] Admitting Diagnosis: Respiratory Distress Mobility Progressive Mobility Level: Walk in hallway Distance Walked (feet): 200 ft Level of Assistance: Stand by assistance Assistive Device: Walker Time Tolerated: 11-30 minutes Activity Limited By: Patient request to stop Subjective Pertinent Dx per Physician: h/o COPD, bullous emphysema s/p PRICILLA bullectomy and p artial pneumonectomy (1977) who recently was admitted in [place] with a spontanou s RIGHT pneumothorax from bulla rupture and has a RIGHT chest tube with heimlich valve in place- admit from OSH for worsening hypoxia and was found to have per sistent pneumothorax; s/p talc pleurodesis 01/05 Precautions: Falls;O2 Requirement Objective Psychosocial Status: Willing and Cooperative to Participate Home Living Type of Home: House Home Layout: One Level(4 steps to enter) Bathroom Shower / Tub: Tub/Shower Unit Bathroom Toilet: Standard Bathroom Equipment: Grab Bars in Shower Prior Function Level Of Kay: Independent with ADLs and functional transfers;Independen t with homemaking w/ ambulation Lives With: Alone Other Function Comments: Pt reports very close with family- daughters and grandd elroyhters check in on her and available to assist prn. ADL's Where Assessed: Chair LE Dressing Assist: Stand By Assist LE Dressing Deficits: Don/Doff R Sock;Don/Doff L Sock Functional Transfer Assist: Stand By Assist Functional Transfer Deficits: (chair transfer) Comment: Pt upright in chair upon OT arrival. Pt able to complete sit<>stand and functional mobility in hallway with stand by assist, roller walker + management of lines, cues for breathing during activity. Pt returned to chair with encouragement at end of session. Activity Tolerance Endurance: 2/5 Tolerates 10-20 Minutes Exercise w/Multiple Rests Sitting Balance: 4/5 Moves/Returns Trunkal Midpoint 1-2 Inches in Multiple Plane s Comment: Pt 02 3L NC upon OT arrival. Pt titrated up to 6L NC for activity per R N request. Pt satting 94% before activity, 93% after activity with 6L. Pt back o n 3L NC with 02 sats 90%. Cognition Overall Cognitive Status: WFL to Adequately Complete Self Care Tasks Safely Attention: Awake/Alert Education Persons Educated: Patient Teaching Methods: Verbal Instruction;Demonstration Patient Response: Verbalized and Demo Understanding Topics: Role of OT, Goals for Therapy;Energy Conservation Goal Formulation: With Patient Assessment Assessment: Decreased Endurance Prognosis: Good;w/ Family Goal Formulation: Patient No Skilled OT: No Acute OT Goals Identified AM-PAC 6 Clicks Daily Activity Inpatient Putting on and taking off regular lower body clothes?: None Bathing (Including washing, rinsing, drying): A Little Toileting, which includes using toilet, bedpan, or urinal: None Putting on and taking off regular upper body clothing: None Taking care of personal grooming such as brushing teeth: None Eating meals?: None Daily Activity Raw Score: 23 Standardized (t-scale) score: 51.12 CMS 0-100% Score: 15.86 CMS G Code Modifier: CI Plan OT Frequency: No Further Treatment ADL Goals Patient Will Perform Grooming: Standing at Sink;w/ Supervision/Safety;Met Patient Will Perform LE Dressing: In Chair;w/ Safety/Supervision;Met Patient Will Perform Toileting: w/ Supervision/Safety;Met(per pt report) Functional Transfer Goals Pt Will Perform All Functional Transfers: w/ Supervision, Met OT Discharge Recommendations Recommendation: Home/prior living situation Patient Currently Requires Physical Assist With: All home functioning ADLs Patient Currently Requires Equipment: Walker with wheels Therapist: RITO Whittaker/Violetta [id number] Date: 01/14/2019 * Dedra Hurtado - 01/14/2019 1:40 PM CDT PHYSICAL THERAPY PROGRESS NOTE MOBILITY: Progressive Mobility Level: Walk in room Distance Walked (feet): 20 ft Level of Assistance: Stand by assistance Assistive Device: Walker Time Tolerated: 0-10 minutes Activity Limited By: Shortness of air SUBJECTIVE: Significant hospital events: h/o COPD, bullous emphysema s/p PRICILLA bullectomy and partial pneumonectomy (1977) who recently was admitted in [place] with a spontan ous RIGHT pneumothorax from bulla rupture and has a RIGHT chest tube with heimli ch valve in place- admit from OSH for worsening hypoxia and was found to have p ersistent pneumothorax; s/p talc pleurodesis 01/05 Mental / Cognitive Status: Alert;Oriented;Cooperative Pain: Patient complains of pain;After activity Pain Location: (Chest tube site) Comments: 2 Chest tube Comments: 4L O2 at rest. Patient with low saturation; team aware with RT paged. Per team report, patient up to chair only at this time. Increased to 6L per RN w ith activity. Ambulation Assist: Independent Mobility in Community without Device Patient Owned Equipment: None Home Situation: Lives Alone Type of Home: House Entry Stairs: 3-5 Stairs(4) In-Home Stairs: No Stairs BED MOBILITY/TRANSFERS: Bed Mobility: Supine to Sit: Modified Independent;Head of Bed Elevated Transfer Type: Sit to Stand Transfer: Assistance Level: From;Bed;Standby Assist Transfer: Assistive Device: Roller Walker Transfers: Type Of Assistance: For Safety Considerations Other Transfer Type: Sit to/from Stand Other Transfer: Assistance Level: To/From;Toilet;Standby Assist Other Transfer: Assistive Device: Roller Walker Other Transfer: Type Of Assistance: For Safety Considerations End Of Activity Status: Up in Chair;Nursing Notified;Instructed Patient to Reque st Assist with Mobility;Instructed Patient to Use Call Light GAIT: Gait Distance: 20 feet(to/from bathroom) Gait: Assistance Level: Standby Assist Gait: Assistive Device: Roller Walker Gait: Descriptors: Pace: Slow;Swing-Through Gait;Forward trunk flexion Comments: 6L O2 with activity. Activity Limited By: SOA EDUCATION: Persons Educated: Patient Patient Barriers To Learning: None Noted Teaching Methods: Verbal Instruction Patient Response: Verbalized Understanding Topics: Plan/Goals of PT Interventions;Importance of Increasing Activity;Ambulat e With Nursing;Recommend Continued Therapy ASSESSMENT/PROGRESS: Impaired Mobility Due To: Medical Status Limitation Assessment/Progress: Should Improve w/ Continued PT Comments: Patient with drop in O2 saturation to mid 70's at end of session. Barbie ent left on 6L O2 with RT in room for treatment. Turning from your back to your side while in a flat bed without using bed rails: None Moving from lying on your back to sitting on the side of a flatbed without using bedrails : A Little Moving to and from a bed to a chair (including a wheelchair): A Little Standing up from a chair using your arms (e.g. wheelchair, or bedside chair): A Little To walk in hospital room: A Little Climbing 3-5 steps with a railing: A Little Raw Score: 19 Standardized (T-scale) Score: 42.48 Basic Mobility CMS 0-100%: 36.99 [facility] G Code Modifier for Basic Mobility: CJ GOALS: Goal Formulation: With Patient Time For Goal Achievement: 5 days Patient Will Go Supine To/From Sit: Independently Patient Will Transfer Sit to Stand: Independently Patient Will Ambulate: Greater than 200 Feet, w/ No Device, w/ Stand By Assist Patient Will Go Up / Down Stairs: 3-5 Stairs, w/ Stand By Assist PLAN: Treatment Interventions: Mobility Training;Balance Activities;Endurance Training Plan Frequency: 5 Days per Week PT Plan for Next Visit: Gait distance progression. Trial stairs. RECOMMENDATIONS: Recommendation: Home/prior living situation Comments: Home/prior living situation Therapist: Dedra Hurtado Date: 01/14/2019 * Alirio Cuevas MD - 01/14/2019 1:05 PM CDT The patient is doing well. What is her chest tubes were placed a water seal this morning. One chest tube demonstrates no air leak. The other chest tube has a sm all in urban air leak. Will transition over to Heimlich valve in the next severa l days. * Eva Shelton APRN-NP - 01/14/2019 7:35 AM CDT CARDIOTHORACIC SURGERY DAILY PROGRESS NOTE PROCEDURE: RIGHT VIDEO ASSISTED THORACOSCOPY WITH MECHANICAL PLEURODESIS: 04668 (CPT) THORACOTOMY WITH EXPLORATION, WITH CREATION OF PNEUMO-PERITONEUM: 19801 (CPT) POD #: 9 SUBJECTIVE: Resting in bed. Overnight events: None. ASSESSMENT: Active Hospital Problems Diagnosis Pneumothorax on right Severe malnutrition (HCC) On mechanically assisted ventilation (HCC) Other emphysema (HCC) Acute respiratory failure with hypoxia (HCC) Bullous emphysema with collapse (HCC) PLAN: Neuro Alert and oriented. Resting in bed. Pain control with PRN oxycodone, t ramadol and with scheduled Tylenol. CV SR 70-90s, SBP 115-130s, no SILK TRIMMER cardiac medications. Resp Daily CXR lungs expanded, unchanged from previous. On 3lpm O2 at re st, 6L with exercise. Wean O2 as able. Continue IS, aggressive pulm toilet. Ches t tubes in place, air leak noted in #1- Keep to -10 continuous suction. Glucose pleurodesis x2 01/13. Continue mucomyst, saline nebs, albuterol, Advair, and sing ulair, continue vest therapy. Will determine chest tube plan with Dr. Erika patterson today. Renal Scr 0.38. Monitor BMP, assess for CAROLINE. UOP 775 ml/24hr. UA sent for cl oudy urine and decreased output. UA positive. Started on cipro 01/14. GI - Regular diet, + BM 01/12, continue post op bowel regimen. ID Afebrile, WBC 9.1. Cipro 250 mg BID for UTI. Culture and sensitivities pe nding, will follow. Heme Hgb 11.0, Hct 33.6. Cont SQ heparin, continue mechanical prophylaxis. FEN If creatinine < 2.0, replace Mg and K per CTS post op protocol. Activity Up with SBA, OOBTC, walk TID, progress mobility as tolerated. Disposition - Continue chest tubes to -10 cm wall suction, will determine status of chest tubes today with Dr. Cuevas. Possibility for CT #2 to be remov ed, and CT #1 to have heimlich valve vs keeping current set up. OBJECTIVE: Vitals: 01/13/19200301/13/19 2232 01/14/19 0247 01/14/19 0609 BP: 138/73 116/62 Pulse: 100 79 92 Temp: 37.1 C (98.8 F) 36.9 C (98.4 F) SpO2: 96% 92% Weight: 42.5 kg (93 lb 9.6 oz) Height: Physical Exam: General: A&O x 3 Cardiovascular: RRR no rub or murmur Respiratory: LS CTA rocky, Right CT's x2 to wall suction, s/s output, + air leak i n tube #1 GI: soft, NT, +BS Extremities: No Edema Incisions: right VAT incision clean, dry, intact with drsg, Other incision C/D/I with surgical adhesive Prophylaxis Review: Lines: No Antibiotic Usage: No VTE: Pharmacological prophylaxis; SQ Heparin and Mechanical prophylaxis; Sequen tial compression device Urinary Catheter: No Chest Tubes OUTPUT/24 HOURSAIR LEAK PRESENT Pleural #1 80 yes Pleural #2 300 no LABS: 24-hour labs: Results for orders placed or performed during the hospital encounter of 01/01/19 (from the past 24 hour(s)) URINALYSIS DIPSTICK REFLEX TO CULTURE Collection Time: 01/13/19 11:50 PM Result Value Ref Range Color,UA YELLOW Turbidity,UA CLEAR CLEAR-CLEAR Specific [place]-Urine 1.008 1.003 - 1.035 pH,UA 7.0 5.0 - 8.0 Protein,UA NEG NEG-NEG Glucose,UA NEG NEG-NEG Ketones,UA NEG NEG-NEG Bilirubin,UA NEG NEG-NEG Blood,UA 1+ (A) NEG-NEG Urobilinogen,UA NORMAL NORM-NORMAL Nitrite,UA POS (A) NEG-NEG Leukocytes,UA 3+ (A) NEG-NEG Urine Ascorbic Acid, UA NEG NEG-NEG URINALYSIS MICROSCOPIC REFLEX TO CULTURE Collection Time: 01/13/19 11:50 PM Result Value Ref Range WBCs,UA 20-50 0 - 2 /HPF RBCs,UA 2-10 0 - 3 /HPF Comment,UA Criteria for reflex to culture are WBC>10, Positive Nitrite, and/or >=+1 leukocytes. If quantity is not sufficient, an addendum will follow. MucousUA TRACE Bacteria,UA FEW (A) NEG-NEG CBC Collection Time: 01/14/19 4:17 AM Result Value Ref Range White Blood Cells 9.1 4.5 - 11.0 K/UL RBC 3.30 (L) 4.0 - 5.0 M/UL Hemoglobin 11.0 (L) 12.0 - 15.0 GM/DL Hematocrit 33.6 (L) 36 - 45 % MCV 101.8 (H) 80 - 100 FL MCH 33.3 26 - 34 PG MCHC 32.7 32.0 - 36.0 G/DL RDW 14.0 11 - 15 % Platelet Count 412 (H) 150 - 400 K/UL MPV 6.9 (L) 7 - 11 FL BASIC METABOLIC PANEL Collection Time: 01/14/19 4:17 AM Result Value Ref Range Sodium 136 (L) 137 - 147 MMOL/L Potassium 4.4 3.5 - 5.1 MMOL/L Chloride 100 98 - 110 MMOL/L CO2 31 (H) 21 - 30 MMOL/L Anion Gap 5 3 - 12 Glucose 108 (H) 70 - 100 MG/DL Blood Urea Nitrogen 6 (L) 7 - 25 MG/DL Creatinine 0.38 (L) 0.4 - 1.00 MG/DL Calcium 8.7 8.5 - 10.6 MG/DL eGFR Non >60 >60 mL/min eGFR >60 >60 mL/min Eva Shelton APRN-BACK GRINDER-C Pager [phone] * Ada Denny RN - 01/14/2019 6:04 AM CDT Assumed care at 1900. A&Ox4. VSS per pt trend. Tolerating 3L via NC, denies SOA. SR to ST (low 100's) on tele overnight. Pain well controlled via current regime n (see MAR). Denies N/V. Surgical incisions CDI. CT's to -[address]1 40 mLs seros anguinous total output. CT#2 110 mLs serosanguinous total output. Last BM 12/2818. Adequate UOP overnight. HFR bundle in place. No other needs voiced at this time. Call light within reach. Assessments compl eted and documented per flowsheet. * Bismark Bell RN - 01/13/2019 5:17 PM CDT Assumed care at 0730 VSS per pt trend, SR on tele. Pt on 3L NC at rest and 6L NC while ambulating Pain adequately controlled with current pain regimen Incisions c/d/i CT x2 -10 cont suction Low UOP today, urine cloudy. Orders for UA and bolus given. will cont to monitor No BM CT #1: [address] #2: 190 mL * Alirio Cuevas MD - 01/13/2019 3:29 PM CDT Patient is doing well. She has good expansion of the lung. She continues to tai ve an air leak especially in the lower chest tube. We will plan for dextrose pl eurodesis today. * Eva Shelton APRN-NP - 01/13/2019 3:10 PM CDT CTS Update note: Reevaluated CT #1 @ -10 suction, continues with persistent air leak. Dr. Cuevas has ordered for 2nd round of D50 pleurodesis. Lidocaine 1% instilled into superior pleural tube, then administered 50ml D50 so lution. Patient tolerated procedure well. Small air leak with large tidal in CT #[address] #2 remain s with no air leak. Will keep chest tube atriums to water seal and above level o f patients chest and then reconnect to -10cm wall suction. Vitals: 01/13/19 0500 01/13/19 0750 01/13/19 0915 01/13/19 1135 BP: 134/64 126/55 Pulse: 81 80 101 Temp: 36.6 C (97.9 F) 36.6 C (97.9 F) SpO2: 96% 97% 94% Weight: 42.3 kg (93 lb 3.2 oz) Height: DINORA [facility], [place] [address] Phone [phone] * Dedra Hurtado - 01/13/2019 1:47 PM CDT PHYSICAL THERAPY PROGRESS NOTE MOBILITY: Progressive Mobility Level: Walk in hallway Distance Walked (feet): 160 ft Level of Assistance: Assist X1 Assistive Device: Walker Time Tolerated: 0-10 minutes Activity Limited By: Shortness of air SUBJECTIVE: Significant hospital events: h/o COPD, bullous emphysema s/p PRICILLA bullectomy and partial pneumonectomy (1977) who recently was admitted in [place] with a spontan ous RIGHT pneumothorax from bulla rupture and has a RIGHT chest tube with heimli ch valve in place- admit from OSH for worsening hypoxia and was found to have p ersistent pneumothorax; s/p talc pleurodesis 01/05 Mental / Cognitive Status: Alert;Oriented;Cooperative Pain: Patient complains of pain;After activity Pain Location: (Chest tube site) Comments: 2 Chest tube to suction. Comments: 3L O2 via HFNC increased to 6L O2 with activity. Ambulation Assist: Independent Mobility in Community without Device Patient Owned Equipment: None Home Situation: Lives Alone Type of Home: House Entry Stairs: 3-5 Stairs(4) In-Home Stairs: No Stairs BED MOBILITY/TRANSFERS: Bed Mobility: Supine to Sit: Standby Assist;Head of Bed Elevated Bed Mobility: Sit to Supine: Standby Assist;HOB Elevated Transfer Type: Sit to/from Stand Transfer: Assistance Level: To/From;Bed;Standby Assist Transfer: Assistive Device: Roller Walker Transfers: Type Of Assistance: For Safety Considerations End Of Activity Status: In Bed;Nursing Notified;Instructed Patient to Request As sist with Mobility;Instructed Patient to Use Call Light BALANCE: Standing Balance: Static Standing Balance;Dynamic Standing Balance;Standby Sherie t;2 UE support GAIT: Gait Distance: 160 feet Gait: Assistance Level: Standby Assist Gait: Assistive Device: Roller Walker Gait: Descriptors: Pace: Slow;Swing-Through Gait;Forward trunk flexion Comments: 6L O2 with activity per RN report. Activity Limited By: SOA EDUCATION: Persons Educated: Patient Patient Barriers To Learning: None Noted Teaching Methods: Verbal Instruction Patient Response: Verbalized Understanding Topics: Plan/Goals of PT Interventions;Importance of Increasing Activity;Ambulat e With Nursing;Recommend Continued Therapy ASSESSMENT/PROGRESS: Impaired Mobility Due To: Medical Status Limitation Assessment/Progress: Should Improve w/ Continued PT Comments: Patient with drop in O2 to low 80's at end of session. Increase time f or recovery back to 90's with cues on PLB and titrated back to 3L. Patient prima rily limited by fatigue with reports of SOA with mobility. Turning from your back to your side while in a flat bed without using bed rails: None Moving from lying on your back to sitting on the side of a flatbed without using bedrails : A Little Moving to and from a bed to a chair (including a wheelchair): A Little Standing up from a chair using your arms (e.g. wheelchair, or bedside chair): A Little To walk in hospital room: A Little Climbing 3-5 steps with a railing: A Little Raw Score: 19 Standardized (T-scale) Score: 42.48 Basic Mobility CMS 0-100%: 36.99 CMS G Code Modifier for Basic Mobility: CJ GOALS: Goal Formulation: With Patient Time For Goal Achievement: 5 days Patient Will Go Supine To/From Sit: Independently Patient Will Transfer Sit to Stand: Independently Patient Will Ambulate: Greater than 200 Feet, w/ No Device, w/ Stand By Assist Patient Will Go Up / Down Stairs: 3-5 Stairs, w/ Stand By Assist PLAN: Treatment Interventions: Mobility Training;Balance Activities;Endurance Training Plan Frequency: 5 Days per Week PT Plan for Next Visit: Continue progressing gait with monitoring O2. maintain o n portable suction. RECOMMENDATIONS: Recommendation: Home/prior living situation Comments: Patient currently using roller walker with mobility; hopeful will not need by time of discharge. Will continue to assess for equipment needs. Therapist: Dedra Hurtado Date: 01/13/2019 * Eva Shelton APRN-NP - 01/13/2019 8:49 AM CDT CTS Update note: CT #1 @ -10 suction with persistent air leak. Dr. Cuevas has ordered for D50 pleurodesis this morning. Lidocaine 1% instilled into superior pleural tube, then administered 50ml D50 so lution. Patient tolerated procedure well. Small air leak with large tidal in CT #[address] #2 remains with no air leak. Will keep chest tu be atriums to water seal and above level of patients chest x 30 min and recheck. Vitals: 01/12/19 2339 01/13/19 0400 01/13/19 0500 01/13/19 0750 BP: 118/71 128/73 134/64 Pulse: 101 80 81 Temp: 36.7 C (98.1 F) 36.6 C (97.9 F) 36.6 C (97.9 F) SpO2: 95% 97% 96% Weight: 42.3 kg (93 lb 3.2 oz) Height: DINORA Engle pgr [phone] Phone [phone] * Eva Shelton APRN-NP - 01/13/2019 7:24 AM CDT CARDIOTHORACIC SURGERY DAILY PROGRESS NOTE PROCEDURE: RIGHT VIDEO ASSISTED THORACOSCOPY WITH MECHANICAL PLEURODESIS: 13037 (CPT) THORACOTOMY WITH EXPLORATION, WITH CREATION OF PNEUMO-PERITONEUM: 39011 (CPT) POD #: 8 SUBJECTIVE: denies any new issues. Continues with air leak in one chest tube. Overnight events: None. ASSESSMENT: Active Hospital Problems Diagnosis Pneumothorax on right Severe malnutrition (HCC) On mechanically assisted ventilation (HCC) Other emphysema (HCC) Acute respiratory failure with hypoxia (HCC) Bullous emphysema with collapse (HCC) PLAN: Neuro Alert and oriented. Continue PRN oxycodone with scheduled Tylenol. CV SR 70-90s, SBP 120s, no SILK TRIMMER cardiac medications. Resp Daily CXR lungs expanded, unchanged from previous. On 2-3lpm O2 at rest. Wean O2 as able. Continue IS, aggressive pulm toilet. Chest tubes in place , air leak noted in #1- Keep to -10 continuous suction. Glucose pleurodesis toda y at bedisde. Continue mucomyst, saline nebs, albuterol, Advair, and singulair, continue vest therapy. Renal Scr 0.35. Monitor BMP, assess for CAROLINE. UOP 935 ml/24hr GI - Regular diet, + BM 01/12, continue post op bowel regimen. ID Afebrile, WBC 5.7 Heme Hgb 11.3, Hct 33.9. Cont SQ heparin, continue mechanical prophylaxis. FEN If creatinine < 2.0, replace Mg and K per CTS post op protocol. Activity Up with SBA, OOBTC, walk TID, progress mobility as tolerated. Disposition - Pleurodesis today with D50. Continue inpatient care while chest tu bes remain, continue to continuous -10 suction, Monitor daily CXR and labs. OBJECTIVE: Vitals: 01/12/19201801/12/19 2339 01/13/19 0400 01/13/19 0500 BP: 118/71 128/73 Pulse: 94 101 80 Temp: 36.7 C (98.1 F) 36.6 C (97.9 F) SpO2: 95% 97% Weight: 42.3 kg (93 lb 3.2 oz) Height: Physical Exam: General: A&O x 3 Cardiovascular: RRR no rub or murmur Respiratory: LS CTA rocky, Right CT's x2 to wall suction, s/s output, + air leak i n tube #1 GI: soft, NT, +BS Extremities: No Edema Incisions: right VAT incision clean, dry, intact with drsg, Other incision C/D/I with surgical adhesive Prophylaxis Review: Lines: No Antibiotic Usage: No VTE: Pharmacological prophylaxis; SQ Heparin and Mechanical prophylaxis; Sequen tial compression device Urinary Catheter: No Chest Tubes OUTPUT/24 HOURSAIR LEAK PRESENT Pleural #1 70 yes Pleural #2 20 no LABS: 24-hour labs: No results found for this visit on 01/01/19 (from the past 24 hour(s)). SCOTT Gardner Pager [phone] * Ada Denny RN - 01/13/2019 7:09 AM CDT Assumed care at 1900. A&Ox4. VSS per pt trend. Tolerating 3L via NC, denies SOA. ST (low 100's) to SA on tele overnight. Pain well controlled via current regime n (see MAR). Denies N/V. Surgical incisions CDI. CT #1 -10 CO suction w/ no ouput. CT #2 - 10 CO suction w/ 30 mLs serosanguinous output overniight and known air leak. Last BM 01/12/19. Marginal UOP overnight. HFR bundle in place. No other needs voiced at this time. Call light within reach. Assessments compl eted and documented per flowsheet. * Bismark Bell RN - 01/12/2019 3:12 PM CDT Assumed care at 0730 VSS per pt trend, SR on tele, Pt on RA Pain adequately controlled with current pain regimen, see eMAR. Incisions c/d/i, CT x2 to -10 continuous suction, see doc flow Pt ambulating in halls with staff Good UOP, BM today CT #1: [address] #2: 40 mL * Jordin Taylor, SILK TRIMMER - 01/12/2019 2:40 PM CDT PHYSICAL THERAPY PROGRESS NOTE MOBILITY: Progressive Mobility Level: Walk in hallway Distance Walked (feet): 200 ft Level of Assistance: Assist X1 Assistive Device: Walker Time Tolerated: 11-30 minutes Activity Limited By: Shortness of air SUBJECTIVE: Significant hospital events: h/o COPD, bullous emphysema s/p PRICILLA bullectomy and partial pneumonectomy (1977) who recently was admitted in [place] with a spontan ous RIGHT pneumothorax from bulla rupture and has a RIGHT chest tube with heimli ch valve in place- admit from OSH for worsening hypoxia and was found to have p ersistent pneumothorax; s/p talc pleurodesis 01/05 Mental / Cognitive Status: Alert;Oriented;Cooperative Persons Present: Occupational Therapist Pain: Patient has no complaint of pain Ambulation Assist: Independent Mobility in Community without Device Patient Owned Equipment: None Home Situation: Lives Alone Type of Home: House Entry Stairs: 3-5 Stairs(4) In-Home Stairs: No Stairs BED MOBILITY/TRANSFERS: Bed Mobility: Supine to Sit: Standby Assist;Head of Bed Elevated;Safety Consider ations Bed Mobility: Sit to Supine: Standby Assist;HOB Elevated;Safety Considerations Transfer Type: Sit to/from Stand Transfer: Assistance Level: To/From;Bed;Standby Assist Transfer: Assistive Device: Roller Walker Transfers: Type Of Assistance: For Safety Considerations End Of Activity Status: In Bed;Nursing Notified;Instructed Patient to Request As sist with Mobility;Instructed Patient to Use Call Light GAIT: Gait Distance: 200 feet Gait: Assistance Level: Minimal Assist;of 1st person;Management of Lines;of 2nd person(Contact guard assist) Gait: Assistive Device: Roller Walker Gait: Descriptors: Pace: Slow;Swing-Through Gait Comments: 4L O2 with activity. 2 Chest tubes to portable suction and assist with IV pole and O2 tank Activity Limited By: Complaint of Fatigue ASSESSMENT/PROGRESS: Assessment/Progress: Should Improve w/ Continued PT;Expect Good Progress Turning from your back to your side while in a flat bed without using bed rails: None Moving from lying on your back to sitting on the side of a flatbed without using bedrails : A Little Moving to and from a bed to a chair (including a wheelchair): A Little Standing up from a chair using your arms (e.g. wheelchair, or bedside chair): A Little To walk in hospital room: A Little Climbing 3-5 steps with a railing: A Little Raw Score: 19 Standardized (T-scale) Score: 42.48 Basic Mobility CMS 0-100%: 36.99 CMS G Code Modifier for Basic Mobility: CJ GOALS: Goal Formulation: With Patient Time For Goal Achievement: 5 days Patient Will Go Supine To/From Sit: Independently Patient Will Transfer Sit to Stand: Independently Patient Will Ambulate: Greater than 200 Feet, w/ No Device, w/ Stand By Assist Patient Will Go Up / Down Stairs: 3-5 Stairs, w/ Stand By Assist PLAN: Treatment Interventions: Mobility Training;Balance Activities;Endurance Training Plan Frequency: 5 Days per Week PT Plan for Next Visit: Progress gait and trial stairs. Initiate MA when patient off portable suction. Attempt to wean off walker when appropriate. RECOMMENDATIONS: Recommendation: Home/prior living situation Comments: Patient currently using roller walker with mobility; hopeful will not by time of discharge. Will continue to assess for equipment needs. Therapist: Jordin Taylor PTA Date: 01/12/2019 * Jana Rabago, OT - 01/12/2019 2:40 PM CDT OCCUPATIONAL THERAPY PROGRESS NOTE Patient Name: Yun Booker Room/Bed: [place] [address] Admitting Diagnosis: Respiratory Distress Mobility Progressive Mobility Level: Walk in hallway Distance Walked (feet): 175 ft Level of Assistance: Assist X1 Assistive Device: Walker Time Tolerated: 11-30 minutes Activity Limited By: Shortness of air Subjective Pertinent Dx per Physician: h/o COPD, bullous emphysema s/p PRICILLA bullectomy and p artial pneumonectomy (1977) who recently was admitted in [place] with a spontanou s RIGHT pneumothorax from bulla rupture and has a RIGHT chest tube with heimlich valve in place- admit from OSH for worsening hypoxia and was found to have per sistent pneumothorax; s/p talc pleurodesis 01/05 Precautions: Falls;O2 Requirement(4L NC; two chest tubes to suction) Pain / Complaints: Patient agrees to participate in therapy Pain Location: Right;Abdomen Pain Level Current: (Pt does not rate.) Comments: Pt reports she has been able to ambulate to bathroom with assistance a nd complete toileting clothing management and hygiene with limited assistance. Objective Psychosocial Status: Willing and Cooperative to Participate Persons Present: Physical Therapist Home Living Type of Home: House Home Layout: One Level(4 steps to enter) Bathroom Shower / Tub: Tub/Shower Unit Bathroom Toilet: Standard Bathroom Equipment: Grab Bars in Shower Prior Function Level Of Kay: Independent with ADLs and functional transfers;Independen t with homemaking w/ ambulation Lives With: Alone Other Function Comments: Pt reports very close with family- daughters and grandd elroyhters check in on her and available to assist prn. ADL's Where Assessed: Edge of Bed Functional Transfer Assist: Stand By Assist Functional Transfer Deficits: (supine<>stand) Comment: Pt supine upon OT arrival. Pt completed functional mobility in hallway with contact guard assist for balance and roller walker + management of lines. P t had one loss of balance when distracted but self corrected. Pt declined furthe r ADL intervention this date. Pt supine at OT departure. Activity Tolerance Endurance: 2/5 Tolerates 10-20 Minutes Exercise w/Multiple Rests Sitting Balance: 4/5 Moves/Returns Trunkal Midpoint 1-2 Inches in Multiple Plane s Comment: Pt on 4L NC throughout session. Cognition Overall Cognitive Status: WFL to Adequately Complete Self Care Tasks Safely Attention: Awake/Alert Education Persons Educated: Patient Teaching Methods: Verbal Instruction;Demonstration Patient Response: Verbalized and Demo Understanding Topics: Role of OT, Goals for Therapy;Energy Conservation;ADL Compensatory Techn iques Goal Formulation: With Patient Assessment Assessment: Decreased ADL Status;Decreased Endurance;Decreased Self-Care Trans;D ecreased High-Level ADLs Prognosis: Good;w/ Family Goal Formulation: Patient AM-PAC 6 Clicks Daily Activity Inpatient Putting on and taking off regular lower body clothes?: A Little Bathing (Including washing, rinsing, drying): A Little Toileting, which includes using toilet, bedpan, or urinal: A Little Putting on and taking off regular upper body clothing: A Little Taking care of personal grooming such as brushing teeth: None Eating meals?: None Daily Activity Raw Score: 20 Standardized (t-scale) score: 42.03 CMS 0-100% Score: 38.32 CMS G Code Modifier: CJ Plan OT Frequency: 2-3x/week OT Plan for Next Visit: Continued endurance with standing grooming; toileting as able ADL Goals Patient Will Perform Grooming: Standing at Sink;w/ Supervision/Safety;Met Patient Will Perform LE Dressing: In Chair;w/ Safety/Supervision Patient Will Perform Toileting: w/ Supervision/Safety Functional Transfer Goals Pt Will Perform All Functional Transfers: w/ Supervision, w/ Good Judgment/Safet y OT Discharge Recommendations Recommendation: Home/prior living situation Patient Currently Requires Physical Assist With: All mobility, All home function ing ADLs, All personal care ADLs Patient Currently Requires Equipment: Walker with wheels Therapist: RITO Whittaker/Violetta [id number] Date: 01/12/2019 * Marcy Carey RT - 01/12/2019 2:00 PM CDT RT Adult Assessment Note NAME:Yun Booker :1945 AG E: 73 y.o. ADMISSION DATE: 01/01/2019 DAYS ADMITTED: LOS: 11 days RT Treatment Plan: Protocol Plan: Medications Albuterol: Neb TID Tiotropium: MDI Q Day Acetylcysteine: Neb PRN Protocol Plan: Procedures Vest Airway Clearance: TID Oxygen/Humidity: O2 to keep SpO2 > 92% Monitoring: Pulse oximetry BID & PRN Comment: Advair BID Additional Comments: Impressions of the patient: Sitting in chair on 2.5 L O2 alert and awake. NAD Intervention(s)/outcome(s): acetylcysteine changed to PRN Patient education that was completed: None at this time Recommendations to the care team: N/A Vital Signs: Pulse: 87 RR: 18 PER MINUTE SpO2: 98 % O2 Device: Cannula Liter Flow: 2.5 Lpm O2%: Breath Sounds: Respiratory Effort: Non-Labored * Matilde Ayala - 01/12/2019 12:04 PM CDT CLINICAL NUTRITION Clinical Nutrition Follow-Up Summary NAME:Yun Booker :1945 AG E: 73 y.o. ADMISSION DATE: 01/01/2019 DAYS ADMITTED: LOS: 11 days Nutrition Assessment of Patient: Malnutrition Assessment: Malnutrition present Current Oral Intake: Improving Estimated Calorie Needs: 1470 (35 kcal/kg wt 42 kg) Estimated Protein Needs: 63-84g (1.5-2 g/kg wt 42 kg) Oral Diet Order: Regular ICD-10 code E43: Acute illness/Severe malnutrition Energy intake: < 50% of estimated energy requirement for 5 days or more, Weight loss: > 5% x 1 month, Moderate loss of body fat Loss of Subcutaneous Fat: Yes Moderate Triceps Muscle Wasting: Yes Mild Clavicle, Shinto, Deltoid Edema: No Malnutrition Interventions: Encouraged good PO intakes of meals and supplements Comments: 73 yo F with COPD, bullous emphysema s/p PRICILLA bullectomy and parital pneumonectom y (1977), who was recently admitted to OSH in [place], [place] (~5 wks ago) with acute chest pain, found to have spontaneous right pneumothorax after bullae rupture, s/p CTX with Heimlich Valve; treated for PNA. (discharged 12/21/18) She was re-ho spitalized there 01/01/19 after her initial stay with worsening hypoxia and persi stent pneumothorax. Transferred to [facility] that same day for CTS evaluation. Pt n ow s/p VAT with mechanical pleurodesis, s/p thoracotomy with exploration, creati on of pneumo-peritoneum on 01/05.Extubated 01/06 and diet advanced to regular. Lore iecyn reports good tolerance of diet, although she feels full quickly and has sta rted saving meal items to use as snacks in between meals. Encouraged small, freq uent meals routine as tolerated. Continues to have stage 1 PU on coccyx. Denies n/v/c/d, last BM 01/11. Recommendation: Continue Regular diet. Encourage intake of Magic Cup at hs snack. Encourage small, frequent meals. Intervention / Plan: Monitor diet tolerance/adequacy of po intakes Monitor wt trends, GI function, pertinent labs/meds. Nutrition Diagnosis: Malnutrition Etiology: lack of appetite, respiratory issues past month Signs & Symptoms: diet history, +muscle/fat loss, 12.9% wt loss in past month Goals: Patient to consume >85% of meals/supplements Time Frame: Within 72 hours Status: Partially met;Ongoing Prevent further weight loss Time Frame: Throughout stay Status: Ongoing Matilde Ayala RD, TI Pager: [phone] * Eva Shelton, MANAGER OF BROADCAST CONTENT-BACK GRINDER - 01/12/2019 6:51 AM CDT CARDIOTHORACIC SURGERY DAILY PROGRESS NOTE PROCEDURE: RIGHT VIDEO ASSISTED THORACOSCOPY WITH MECHANICAL PLEURODESIS: 74022 (CPT) THORACOTOMY WITH EXPLORATION, WITH CREATION OF PNEUMO-PERITONEUM: 02129 (CPT) POD #: 7 SUBJECTIVE: denies any new issues. Overnight events: None. ASSESSMENT: Active Hospital Problems Diagnosis Pneumothorax on right Severe malnutrition (HCC) On mechanically assisted ventilation (HCC) Other emphysema (HCC) Acute respiratory failure with hypoxia (HCC) Bullous emphysema with collapse (HCC) PLAN: Neuro Alert and oriented. Continue PRN oxycodone with scheduled Tylenol. CV SR 70-90s, SBP 120-130s, no SILK TRIMMER cardiac medications. Resp Daily CXR lungs expanded. Extubated 01/06 a.m, is on 2-3lpm O2 at st. Wean O2 as able. Continue IS, aggressive pulm toilet. Chest tubes in place, air leak noted in #1- Keep to -10 continuous suction then possibly transition to hemilich valve vs glucose pleurodesis. Continue mucomyst, continue vest therapy . Renal Scr 0.35. Monitor BMP, assess for CAROLINE. UOP 825 ml/24hr GI - Regular diet, + BM 01/12, continue post op bowel regimen. ID Afebrile, WBC 5.7 Heme Hgb 11.3, Hct 33.9. Cont SQ heparin, continue mechanical prophylaxis. FEN If creatinine < 2.0, replace Mg and K per CTS post op protocol. Activity Up with SBA, OOBTC, walk TID, progress mobility as tolerated. Disposition - Continue inpatient care while chest tubes remain, continue to cont inuous -10 suction for another day then may transition to hemilich valve vs gluc ose pleurodesis. Monitor daily CXR and labs. OBJECTIVE: Vitals: 01/11/19 2053 01/11/19 2310 01/12/19 0320 01/12/19 0632 BP: 121/64 130/60 Pulse: 99 99 79 Temp: 36.9 C (98.5 F) 37 C (98.6 F) SpO2: 98% 98% Weight: 42.3 kg (93 lb 3.2 oz) Height: Physical Exam: General: A&O x 3 Cardiovascular: RRR no rub or murmur Respiratory: LS CTA rocky, Right CT's x2 to wall suction, s/s output, + air leak i n tube #1 GI: soft, NT, +BS Extremities: No Edema Incisions: right VAT incision clean, dry, intact with drsg, Other incision C/D/I with surgical adhesive Prophylaxis Review: Lines: No Antibiotic Usage: No VTE: Pharmacological prophylaxis; SQ Heparin and Mechanical prophylaxis; Sequen tial compression device Urinary Catheter: No Chest Tubes OUTPUT/24 HOURSAIR LEAK PRESENT Pleural #1 180 yes Pleural #2 40 no LABS: 24-hour labs: Results for orders placed or performed during the hospital encounter of 01/01/19 (from the past 24 hour(s)) BASIC METABOLIC PANEL Collection Time: 01/12/19 3:59 AM Result Value Ref Range Sodium 137 137 - 147 MMOL/L Potassium 4.2 3.5 - 5.1 MMOL/L Chloride 102 98 - 110 MMOL/L CO2 30 21 - 30 MMOL/L Anion Gap 5 3 - 12 Glucose 112 (H) 70 - 100 MG/DL Blood Urea Nitrogen 6 (L) 7 - 25 MG/DL Creatinine 0.35 (L) 0.4 - 1.00 MG/DL Calcium 8.8 8.5 - 10.6 MG/DL eGFR Non >60 >60 mL/min eGFR >60 >60 mL/min CBC Collection Time: 01/12/19 3:59 AM Result Value Ref Range White Blood Cells 5.7 4.5 - 11.0 K/UL RBC 3.33 (L) 4.0 - 5.0 M/UL Hemoglobin 11.3 (L) 12.0 - 15.0 GM/DL Hematocrit 33.9 (L) 36 - 45 % MCV 101.7 (H) 80 - 100 FL MCH 33.8 26 - 34 PG MCHC 33.3 32.0 - 36.0 G/DL RDW 13.6 11 - 15 % Platelet Count 369 150 - 400 K/UL MPV 7.0 7 - 11 FL MAGNESIUM Collection Time: 01/12/19 3:59 AM Result Value Ref Range Magnesium 1.8 1.6 - 2.6 mg/dL Eva ISAIAS Hogue-Chris Pager [phone] * Cate Rose RN - 01/12/2019 6:32 AM CDT Assumed care at 1900, no acute events this shift. VSS, SR on tele. 3L NC, 6L while ambulating. UO adeqaute this shift, large BM. Denied pain. CT x 2 to -[address] #1 with airleak. Fall bundle in place. Pt slept well, no further needs, will continue to monitor. * Trenton Massey, RT - 01/12/2019 3:23 AM CDT RT Adult Assessment Note NAME:Yun Booker :1945 AG E: 73 y.o. ADMISSION DATE: 01/01/2019 DAYS ADMITTED: LOS: 11 days RT Treatment Plan: Alb TID & PRN Mucomyst TID. Advair BID Spiriva QDay. Vest airway clearance TID & PRN. IS with RN. Additional Comments: Impressions of the patient: No respiratory distress. Intervention(s)/outcome(s): Cont on current regs and therapies. Titrate O2 as to lerated. Patient education that was completed: none Recommendations to the care team: none Vital Signs: Pulse: 85 RR: 16 SpO2: 94% O2 Device: Cannula Liter Flow: 3L O2%: Breath Sounds: Coarse Respiratory Effort: Non-labored * Wendy Louis RN - 01/11/2019 7:51 PM CDT Pt SR on tele. Pt ST with rates up to 140's with ambulation. HR WNL after restin g. Pt's O2 increased to 6L with activity. Pt c/o pain this afternoon. Oxycodone given per orders. Pt up to chair for a few hours this afternoon. Pt resting in b ed at this time. Will continue to monitor. * Alirio Cuevas MD - 01/11/2019 7:38 AM CDT The patient is doing well. Chest tube number one no longer has an air leak. Ches t tube number two has a small air leak on expiration only. CT scan performed yes terday demonstrates small residual space. We will continue both chest tubes to - 10 section. In the next day or so I may plan for glucose pleurodesis. * Serge Hoang MD - 01/11/2019 7:37 AM CDT CARDIOTHORACIC SURGERY DAILY PROGRESS NOTE PROCEDURE: RIGHT VIDEO ASSISTED THORACOSCOPY WITH MECHANICAL PLEURODESIS: 76807 (CPT) THORACOTOMY WITH EXPLORATION, WITH CREATION OF PNEUMO-PERITONEUM: 61377 (CPT) POD #: 6 SUBJECTIVE: denies any new issues. Overnight events: None. ASSESSMENT: Active Hospital Problems Diagnosis Pneumothorax on right Severe malnutrition (HCC) On mechanically assisted ventilation (HCC) Other emphysema (HCC) Acute respiratory failure with hypoxia (HCC) Bullous emphysema with collapse (HCC) PLAN: Neuro Alert and oriented. Continue PRN oxycodone with scheduled Tylenol. CV SR 70-80s, BP 130s, no SILK TRIMMER cardiac medications. Resp Daily CXR lungs up. Extubated 5/22 a.m, is on 1-2lpm O2. Wean O2 as able. Continue IS, aggressive pulm toilet. Chest tubes in place, air leak noted in #1- Keep to -10 continuous suction then may transition to hemilich valve. st arted mucomyst, continue vest therapy Renal Scr 0.36. Monitor BMP, assess for CAROLINE. UOP 1200ml/24hr GI - Regular diet, + BM post op, continue post op bowel regimen. ID Afebrile, WBC 6.3 Heme Hgb 11.8, Hct 35. Cont SQ heparin, continue mechanical prophylaxis. FEN If creatinine < 2.0, replace Mg and K per CTS post op protocol. Activity Up with SBA, OOBTC, walk TID, progress mobility as tolerated. Disposition - Continue inpatient care while chest tubes remain, continue to cont inuos -10 suction for a couple more days then may transition to hemilich valve . Monitor daily CXR and labs. OBJECTIVE: Vitals: 01/10/19 1519 01/10/19 1925 01/10/19 2250 01/11/19 0311 BP: 126/52 120/61 118/65 137/64 Pulse: 95 95 84 88 Temp: 36.8 C (98.2 F) 36.4 C (97.5 F) 36.9 C (98.4 F) 36.7 C (98.1 F) SpO2: 96% 94% 95% 95% Weight: Height: Physical Exam: General: A&O x 3 Cardiovascular: RRR no rub or murmur Respiratory: LS CTA rocky, Right CT's x2 to wall suction, s/s output, + air leak i n tube #1 GI: soft, NT, +BS Extremities: No Edema Incisions: right VAT incision clean, dry, intact with drsg, Other incision C/D/I with surgical adhesive Prophylaxis Review: Lines: No Antibiotic Usage: No VTE: Pharmacological prophylaxis; SQ Heparin and Mechanical prophylaxis; Sequen tial compression device Urinary Catheter: No Chest Tubes OUTPUT/24 HOURSAIR LEAK PRESENT Pleural #1 110 yes Pleural #2 30 no LABS: 24-hour labs: Results for orders placed or performed during the hospital encounter of 01/01/19 (from the past 24 hour(s)) BASIC METABOLIC PANEL Collection Time: 01/11/19 5:03 AM Result Value Ref Range Sodium 134 (L) 137 - 147 MMOL/L Potassium 4.1 3.5 - 5.1 MMOL/L Chloride 100 98 - 110 MMOL/L CO2 30 21 - 30 MMOL/L Anion Gap 4 3 - 12 Glucose 102 (H) 70 - 100 MG/DL Blood Urea Nitrogen 6 (L) 7 - 25 MG/DL Creatinine 0.36 (L) 0.4 - 1.00 MG/DL Calcium 8.9 8.5 - 10.6 MG/DL eGFR Non >60 >60 mL/min eGFR >60 >60 mL/min CBC Collection Time: 01/11/19 5:03 AM Result Value Ref Range White Blood Cells 6.3 4.5 - 11.0 K/UL RBC 3.48 (L) 4.0 - 5.0 M/UL Hemoglobin 11.8 (L) 12.0 - 15.0 GM/DL Hematocrit 35.0 (L) 36 - 45 % MCV 100.7 (H) 80 - 100 FL MCH 33.9 26 - 34 PG MCHC 33.7 32.0 - 36.0 G/DL RDW 13.3 11 - 15 % Platelet Count 388 150 - 400 K/UL MPV 6.7 (L) 7 - 11 FL MAGNESIUM Collection Time: 01/11/19 5:03 AM Result Value Ref Range Magnesium 1.8 1.6 - 2.6 mg/dL Serge Hoang MD Pager [phone] * Trey Rolon RN - 01/11/2019 6:23 AM CDT Assumed pt care at 1900. SR on telemetry. VSS per trend, see doc flow. Surgical pain reported.Med given per orders. Surgicalincisions CDI.2CTs to suction with air leaks. No other event at night. Call light within reach.No further n eeds at this time. Will continue to monitor. * Tressa Laguna RN - 01/10/2019 3:05 PM CDT Pts oxygen saturation is more stable today, except with ambulation. Will likely need exercise ox prior to discharge. Pain controlled with 5mg oxycodone PRN. CTs at -10 with continued air leaks, no sub-q air, and minimal output. Urine output adequate, and no BM this shift. Pt refusing miralax since she had l oose stools the day before yesterday, but took 1 senna. No other changes to prev iously charted assessments. Will cont to monitor. * Alirio Cuevas MD - 01/10/2019 8:38 AM CDT The patient is doing well. Both chest tubes to -10 of suction. She has small air leak noted. Ill plan on a noncontrast CT of the chest today. If the lungs ar e fully expanded, we will consider repeat pleurodesis with D50. This treatment is fairly well tolerated and can diminish airleak. I would only offer this should the patient have expanded lung. * Serge Hoang MD - 01/10/2019 7:15 AM CDT CARDIOTHORACIC SURGERY DAILY PROGRESS NOTE PROCEDURE: RIGHT VIDEO ASSISTED THORACOSCOPY WITH MECHANICAL PLEURODESIS: 24723 (CPT) THORACOTOMY WITH EXPLORATION, WITH CREATION OF PNEUMO-PERITONEUM: 68187 (CPT) POD #: 5 SUBJECTIVE: coughing up secretions, unable to clear it out completely Overnight events: None. ASSESSMENT: Active Hospital Problems Diagnosis Pneumothorax on right Severe malnutrition (HCC) On mechanically assisted ventilation (HCC) Other emphysema (HCC) Acute respiratory failure with hypoxia (HCC) Bullous emphysema with collapse (HCC) PLAN: Neuro Alert and oriented. Continue PRN oxycodone with scheduled Tylenol. CV SR 70-80s, BP 130s, no SILK TRIMMER cardiac medications. Resp Daily CXR pending Extubated 01/06 a.m, is on 1-2lpm O2. Wean O2 as a ble. Continue IS, aggressive pulm toilet. Chest tubes in place, air leak noted i n #1 and 2 - Keep to -10 continuous suction then may transition to hemilich valv e. Will start mucomyst, continue vest therapy Renal Scr 0.4. Monitor BMP, assess for CAROLINE. UOP 1200ml/24hr GI - Regular diet, + BM post op, continue post op bowel regimen. ID Afebrile, WBC 5.1 Heme Hgb 11.1, Hct 33.8. Cont SQ heparin, continue mechanical prophylaxis. FEN If creatinine < 2.0, replace Mg and K per CTS post op protocol. Activity Up with SBA, OOBTC, walk TID, progress mobility as tolerated. Disposition - Continue inpatient care while chest tubes remain, continue to cont inuos -10 suction for a couple more days then may transition to hemilich valve . Monitor daily CXR and labs. OBJECTIVE: Vitals: 01/09/19 2230 01/10/19 0300 01/10/19 0431 01/10/19 0654 BP: 112/60 135/63 Pulse: 86 79 Temp: 36.5 C (97.7 F) 36.7 C (98.1 F) SpO2: 96% 93% 95% Weight: 42.8 kg (94 lb 6.4 oz) Height: Physical Exam: General: A&O x 3 Cardiovascular: RRR no rub or murmur Respiratory: LS CTA rocky, Right CT's x2 to wall suction, s/s output, + air leak i n tube #1, intermittent airleak #2 GI: soft, NT, +BS Extremities: No Edema Incisions: right VAT incision clean, dry, intact with drsg, Other incision C/D/I with surgical adhesive Prophylaxis Review: Lines: No Antibiotic Usage: No VTE: Pharmacological prophylaxis; SQ Heparin and Mechanical prophylaxis; Sequen tial compression device Urinary Catheter: No Chest Tubes OUTPUT/24 HOURSAIR LEAK PRESENT Pleural #1 70 yes Pleural #2 110 Intermittent, better LABS: 24-hour labs: Results for orders placed or performed during the hospital encounter of 01/01/19 (from the past 24 hour(s)) BASIC METABOLIC PANEL Collection Time: 01/10/19 4:57 AM Result Value Ref Range Sodium 137 137 - 147 MMOL/L Potassium 3.8 3.5 - 5.1 MMOL/L Chloride 101 98 - 110 MMOL/L CO2 28 21 - 30 MMOL/L Anion Gap 8 3 - 12 Glucose 108 (H) 70 - 100 MG/DL Blood Urea Nitrogen 6 (L) 7 - 25 MG/DL Creatinine 0.40 0.4 - 1.00 MG/DL Calcium 8.6 8.5 - 10.6 MG/DL eGFR Non >60 >60 mL/min eGFR >60 >60 mL/min CBC Collection Time: 01/10/19 4:57 AM Result Value Ref Range White Blood Cells 5.1 4.5 - 11.0 K/UL RBC 3.36 (L) 4.0 - 5.0 M/UL Hemoglobin 11.1 (L) 12.0 - 15.0 GM/DL Hematocrit 33.8 (L) 36 - 45 % MCV 100.7 (H) 80 - 100 FL MCH 33.2 26 - 34 PG MCHC 33.0 32.0 - 36.0 G/DL RDW 13.3 11 - 15 % Platelet Count 334 150 - 400 K/UL MPV 6.6 (L) 7 - 11 FL MAGNESIUM Collection Time: 01/10/19 4:57 AM Result Value Ref Range Magnesium 1.8 1.6 - 2.6 mg/dL Serge Hoang MD Pager [phone] * Trey Rolon RN - 01/10/2019 6:31 AM CDT Assumed pt care at 1900. SR on telemetry. VSS per trend, see doc flow. Surgical pain reported. Med given per orders. Surgical incisions CDI. 2CTs to suction wit h air leaks. No other event at night. Call light within reach. No further needs at this time. Will continue to monitor. * Tressa Laguna RN - 01/09/2019 10:53 AM CDT 1000 - Pt helped to bathroom, and was quite SOA. After sitting back down, her O2 sat was 80% on 1L NC. Pt placed on 3L NC and O2 sat 94 %. Pt sitting in chair, and catching her breath. CTs decreased to -[address] Cotter, with air leaks p resent in both CTs. Will cont to monitor. 1050 - O2 sat 97%, and turned down to 2L O2 NC. PA notified that no CXR had been completed today, and of changes in O2 needs. PCXR ordered. Will cont to monitor . 1245 - Pt was 88% on spot check, and is now on 4L NC at 92-93%. Fellow in to ass ess patient, and will keep CTs to -10. No sub-q air noted, and patient states sh e "feels ok." RT notified, and will put patient on continuous pulse ox. 1600 - Pt went on a walk, RT is working with her, and she has been working on h er IS. She was able to cough up a good chunk, and she has now been weaned back d own to 1L O2 NC. Pain controlled with 5mg oxy. No other changes to previously ch arted assessments. Will cont to monitor. * Alirio Cuevas MD - 01/09/2019 9:47 AM CDT Patient is doing well. Chest x-ray demonstrates expanded lung. Placed a -10 wate r seal. We will slowly transition to a Heimlich valve. * Trey Rolon, RN - 01/09/2019 6:13 AM CDT Assumed pt care at 1900. SR/ST on telemetry. VSS per trend, see doc flow. Surgic al pain reported. Med given per orders. Surgical incisions CDI. 2CTs to suction with air leaks. No other event at night. Call light within reach. No further nee ds at this time. Will continue to monitor. * Serge Hoang MD - 01/09/2019 5:58 AM CDT CARDIOTHORACIC SURGERY DAILY PROGRESS NOTE PROCEDURE: RIGHT VIDEO ASSISTED THORACOSCOPY WITH MECHANICAL PLEURODESIS: 65287 (CPT) THORACOTOMY WITH EXPLORATION, WITH CREATION OF PNEUMO-PERITONEUM: 30388 (CPT) POD #: 4 SUBJECTIVE: resting comfortably in bed. No new issues. Denies n/v/f/c/sob. Pain controlled Overnight events: None. ASSESSMENT: Active Hospital Problems Diagnosis Pneumothorax on right Severe malnutrition (HCC) On mechanically assisted ventilation (HCC) Other emphysema (HCC) Acute respiratory failure with hypoxia (HCC) Bullous emphysema with collapse (HCC) PLAN: Neuro Alert and oriented. Continue PRN oxycodone with scheduled Tylenol. CV SR 70s, BP 120s, no SILK TRIMMER cardiac medications. Resp Daily CXR bedside interpretation stable small right apical and basa l hydropneumothorax with chest tubes in place. Extubated 5/22 a.m, is on 1-2lpm O2. Wean O2 as able. Continue IS, aggres sive pulm toilet. Chest tubes in place, air leak noted in #1 and 2 - Keep to -20 continuous suction another couple days. Renal Scr 0.37. Monitor BMP, assess for CAROLINE. UOP 650ml/24hr GI - Regular diet, + BM post op, continue post op bowel regimen. ID Afebrile, WBC 4.3 Heme Hgb 11.1, Hct 33.6. Cont SQ heparin, continue mechanical prophylaxis. FEN If creatinine < 2.0, replace Mg and K per CTS post op protocol. Activity Up with SBA, OOBTC, walk TID, progress mobility as tolerated. Disposition - Continue inpatient care while chest tubes remain, continue to cont inuos -20 suction for a couple more days. Monitor daily CXR and labs. OBJECTIVE: Vitals: 01/08/19 1636 01/08/19 1925 01/08/19 2210 01/09/19 0310 BP: 120/73 130/73 128/66 Pulse: 86 87 92 74 Temp: 36.8 C (98.2 F) 36.7 C (98.1 F) 36.6 C (97.8 F) SpO2: 95% 95% 96% Weight: Height: Physical Exam: General: A&O x 3 Cardiovascular: RRR no rub or murmur Respiratory: LS CTA rocky, Right CT's x2 to wall suction, s/s output, + air leak i n tube #1, intermittent airleak #2 GI: soft, NT, +BS Extremities: No Edema Incisions: right VAT incision clean, dry, intact with drsg, Other incision C/D/I with surgical adhesive Prophylaxis Review: Lines: No Antibiotic Usage: No VTE: Pharmacological prophylaxis; SQ Heparin and Mechanical prophylaxis; Sequen tial compression device Urinary Catheter: No Chest Tubes OUTPUT/24 HOURSAIR LEAK PRESENT Pleural #1120 yes Pleural #2 140 Yes, intermittent LABS: 24-hour labs: Results for orders placed or performed during the hospital encounter of 01/01/19 (from the past 24 hour(s)) BASIC METABOLIC PANEL Collection Time: 01/09/19 4:19 AM Result Value Ref Range Sodium 135 (L) 137 - 147 MMOL/L Potassium 4.7 3.5 - 5.1 MMOL/L Chloride 101 98 - 110 MMOL/L CO2 31 (H) 21 - 30 MMOL/L Anion Gap 3 3 - 12 Glucose 92 70 - 100 MG/DL Blood Urea Nitrogen 8 7 - 25 MG/DL Creatinine 0.37 (L) 0.4 - 1.00 MG/DL Calcium 8.5 8.5 - 10.6 MG/DL eGFR Non >60 >60 mL/min eGFR >60 >60 mL/min CBC Collection Time: 01/09/19 4:19 AM Result Value Ref Range White Blood Cells 4.3 (L) 4.5 - 11.0 K/UL RBC 3.32 (L) 4.0 - 5.0 M/UL Hemoglobin 11.1 (L) 12.0 - 15.0 GM/DL Hematocrit 33.6 (L) 36 - 45 % MCV 101.1 (H) 80 - 100 FL MCH 33.6 26 - 34 PG MCHC 33.2 32.0 - 36.0 G/DL RDW 13.7 11 - 15 % Platelet Count 318 150 - 400 K/UL MPV 7.1 7 - 11 FL MAGNESIUM Collection Time: 01/09/19 4:19 AM Result Value Ref Range Magnesium 1.9 1.6 - 2.6 mg/dL Serge Hoang MD Pager [phone] * Claudia Last RN - 01/08/2019 6:41 PM CDT Assumed pt care at 1500. VSS per trend, A&Ox4, tolerating 1L NC, SR on tele. CT x2 to -20. CT #1 with 50ml SS drainage for shift. CT #2 with 110ml SS drainag e for shift. C/o incisional pain, controlled with Tylenol. UOP adequate but inaccurate d/t missing hat. BM during shift. High fall risk bundle in place, call light within reach, will cont to monitor an d handoff to night RN. * Dedra Hurtado - 01/08/2019 3:00 PM CDT PHYSICAL THERAPY PROGRESS NOTE MOBILITY: Progressive Mobility Level: Walk in hallway Distance Walked (feet): 110 ft Level of Assistance: Assist X1(2nd person for line management only) Assistive Device: Walker Time Tolerated: 11-30 minutes Activity Limited By: Fatigue SUBJECTIVE: Significant hospital events: h/o COPD, bullous emphysema s/p PRICILLA bullectomy and partial pneumonectomy (1977) who recently was admitted in [place] with a spontan ous RIGHT pneumothorax from bulla rupture and has a RIGHT chest tube with heimli ch valve in place- admit from OSH for worsening hypoxia and was found to have p ersistent pneumothorax; s/p talc pleurodesis 01/05 Mental / Cognitive Status: Alert;Oriented;Cooperative Persons Present: Nursing Staff Pain: Patient has no complaint of pain Comments: 2 chest tubes for portable suction Comments: 2L O2 with activity. IV pole Ambulation Assist: Independent Mobility in Community without Device Patient Owned Equipment: None Home Situation: Lives Alone Type of Home: House Entry Stairs: 3-5 Stairs(4) In-Home Stairs: No Stairs BED MOBILITY/TRANSFERS: Comments: Patient up to chair upon arrival. Transfer Type: Sit to/from Stand Transfer: Assistance Level: To/From;Bed Side Chair;Standby Assist Transfer: Assistive Device: Roller Walker Transfers: Type Of Assistance: For Safety Considerations End Of Activity Status: Up in Chair;Nursing Notified;Instructed Patient to Reque st Assist with Mobility;Instructed Patient to Use Call Light BALANCE: Standing Balance: Dynamic Standing Balance;Minimal Assist GAIT: Gait Distance: 110 feet Gait: Assistance Level: Minimal Assist;of 1st person;Management of Lines;of 2nd person Gait: Assistive Device: Roller Walker Gait: Descriptors: Pace: Slow;Swing-Through Gait Comments: 2L O2 with activity. 2 Chest tubes to portable suction and assist with IV pole and O2 tank Activity Limited By: Complaint of Fatigue EDUCATION: Persons Educated: Patient Patient Barriers To Learning: None Noted Teaching Methods: Verbal Instruction Patient Response: Verbalized Understanding Topics: Plan/Goals of PT Interventions;Safety Awareness;Up with Assist Only;Impo rtance of Increasing Activity;Ambulate With Nursing ASSESSMENT/PROGRESS: Assessment/Progress: Should Improve w/ Continued PT;Expect Good Progress Comments: Patient progressing well; limited by pain at chest tube site. Turning from your back to your side while in a flat bed without using bed rails: None Moving from lying on your back to sitting on the side of a flatbed without using bedrails : A Little Moving to and from a bed to a chair (including a wheelchair): A Little Standing up from a chair using your arms (e.g. wheelchair, or bedside chair): A Little To walk in hospital room: A Little Climbing 3-5 steps with a railing: A Little Raw Score: 19 Standardized (T-scale) Score: 42.48 Basic Mobility CMS 0-100%: 36.99 CMS G Code Modifier for Basic Mobility: CJ GOALS: Goal Formulation: With Patient Time For Goal Achievement: 5 days Patient Will Go Supine To/From Sit: Independently Patient Will Transfer Sit to Stand: Independently Patient Will Ambulate: Greater than 200 Feet, w/ No Device, w/ Stand By Assist Patient Will Go Up / Down Stairs: 3-5 Stairs, w/ Stand By Assist PLAN: Treatment Interventions: Mobility Training;Balance Activities;Endurance Training Plan Frequency: 5 Days per Week PT Plan for Next Visit: Progress gait and trial stairs. Initiate MA when patient off portable suction. Attempt to wean off walker when appropriate. RECOMMENDATIONS: Recommendation: Home/prior living situation Comments: Patient currently using roller walker with mobility; hopeful will not by time of discharge. Will continue to assess for equipment needs. Therapist: Dedra Hurtado Date: 01/08/2019 * Dedra Hurtado - 01/08/2019 2:26 PM CDT PHYSICAL THERAPY NOTE Patient attempted for PT; portable suction still not in room. Portable suction r eordered with plan to follow up with patient when it arrives. Therapist: Dedra Hurtado Date: 01/08/2019 * Eva Shelton APRN-NP - 01/08/2019 12:33 PM CDT CARDIOTHORACIC SURGERY DAILY PROGRESS NOTE PROCEDURE: RIGHT VIDEO ASSISTED THORACOSCOPY WITH MECHANICAL PLEURODESIS: 08759 (CPT) THORACOTOMY WITH EXPLORATION, WITH CREATION OF PNEUMO-PERITONEUM: 10002 (CPT) POD #: 3 SUBJECTIVE: resting comfortably in bed Overnight events: None. ASSESSMENT: Active Hospital Problems Diagnosis Pneumothorax on right Severe malnutrition (HCC) On mechanically assisted ventilation (HCC) Other emphysema (HCC) Acute respiratory failure with hypoxia (HCC) Bullous emphysema with collapse (HCC) PLAN: Neuro Alert and oriented. Continue PRN oxycodone with scheduled Tylenol. CV SR 70-80s, BP 120s, no SILK TRIMMER cardiac medications. Resp Daily CXR bedside interpretation: lungs expanded, thoracostomy tube s in place. Will await radiology report. Extubated 5/22 a.m, is on 1-2lpm O2. We an O2 as able. Continue IS, aggressive pulm toilet. Chest tubes in place, air le ak noted in #1 - Keep to -20 continuous suction another couple days. Renal Scr 0.29. Monitor BMP, assess for CAROLINE. UO 5ml 24/hr, possibly bolus to day if no improvement. GI - Regular diet, no BM post op, continue post op bowel regimen. ID Afebrile, WBC 5.9. Heme Hgb 11.2, Hct 33.5. Cont SQ heparin, continue mechanical prophylaxis. FEN If creatinine < 2.0, replace Mg and K per CTS post op protocol. Activity Up with SBA, OOBTC, walk TID, progress mobility as tolerated. Disposition - Continue inpatient care while chest tubes remain, continue to cont inuos -20 suction for a couple more days. Monitor daily CXR and labs. OBJECTIVE: Vitals: 01/08/19 1122 01/08/19 1129 01/08/19 1130 01/08/19 1220 BP: 115/50 Pulse: 120 110 Temp: 36.6 C (97.9 F) SpO2: 92% (!) 80% 93% 95% Weight: Height: Physical Exam: General: A&O x 3 Cardiovascular: RRR no rub or murmur Respiratory: LS CTA rocky, Right CT's x2 to wall suction, s/s output, + air leak i n tube #1 GI: soft, NT, +BS Extremities: No Edema Incisions: right VAT incision clean, dry, intact with drsg, Other incision C/D/I with surgical adhesive Prophylaxis Review: Lines: No Antibiotic Usage: No VTE: Pharmacological prophylaxis; SQ Heparin and Mechanical prophylaxis; Sequen tial compression device Urinary Catheter: No Chest Tubes OUTPUT/24 HOURSAIR LEAK PRESENT Pleural #1110 yes Pleural #2 190 no LABS: 24-hour labs: Results for orders placed or performed during the hospital encounter of 01/01/19 (from the past 24 hour(s)) BASIC METABOLIC PANEL Collection Time: 01/08/19 4:20 AM Result Value Ref Range Sodium 135 (L) 137 - 147 MMOL/L Potassium 4.3 3.5 - 5.1 MMOL/L Chloride 103 98 - 110 MMOL/L CO2 27 21 - 30 MMOL/L Anion Gap 5 3 - 12 Glucose 87 70 - 100 MG/DL Blood Urea Nitrogen 8 7 - 25 MG/DL Creatinine 0.29 (L) 0.4 - 1.00 MG/DL Calcium 8.2 (L) 8.5 - 10.6 MG/DL eGFR Non >60 >60 mL/min eGFR >60 >60 mL/min CBC Collection Time: 01/08/19 4:20 AM Result Value Ref Range White Blood Cells 4.8 4.5 - 11.0 K/UL RBC 3.11 (L) 4.0 - 5.0 M/UL Hemoglobin 10.5 (L) 12.0 - 15.0 GM/DL Hematocrit 31.7 (L) 36 - 45 % MCV 102.1 (H) 80 - 100 FL MCH 33.8 26 - 34 PG MCHC 33.1 32.0 - 36.0 G/DL RDW 13.2 11 - 15 % Platelet Count 263 150 - 400 K/UL MPV 7.1 7 - 11 FL MAGNESIUM Collection Time: 01/08/19 4:20 AM Result Value Ref Range Magnesium 1.9 1.6 - 2.6 mg/dL ISAIAS Gardner-C Pager [phone] * Jessica Gaona, RT - 01/08/2019 10:08 AM CDT RT Adult Assessment Note NAME:Yun Booker :1945 AG E: 73 y.o. ADMISSION DATE: 01/01/2019 DAYS ADMITTED: LOS: 7 days RT Treatment Plan: Protocol Plan: Medications Albuterol: Neb BID;Neb PRN Tiotropium: MDI Q Day Protocol Plan: Procedures Vest Airway Clearance: Q4h While Awake PAP: Discontinued IPPB: Place a nursing order for "IS Q1h While Awake" for any of Lung Expansion i ndicators Oxygen/Humidity: O2 to keep SpO2 > 92% Monitoring: Pulse oximetry BID & PRN Additional Comments: Impressions of the patient: Resting comfortably in bed Intervention(s)/outcome(s): Placed o2 on s/b (95% on RA), vest therapy, breathin g tx, encouraged deep breathing techniques Vital Signs: Pulse: 98 RR: SpO2: 95 % O2 Device: Standby Liter Flow: 1 Lpm O2%: 21 % Breath Sounds: Clear (implies normal);Decreased Respiratory Effort: Non-Labored * Ada Denny, RN - 01/08/2019 7:35 AM CDT Assumed care at 1900. A&Ox4. VSS per pt trend. Tolerating 1.5L via NC, denies SOA. SR on tele overnight. Pain controlled via scheduled Tylenol and rest. Denies N /V. Surgical incisions CDI. CT #1 to -20 CO suction w/ 40mLs serosanguinous output. CT #2 to -20 CO suction w/ 80 mLs serosanguinous output. Both CTs have known air leaks. Last BM 01/08/19. Marginal UOP overnight. CTS team notified. SONDRA Reddy, acknowledged that d/t kg of pt and Cr that this is okay. HFR bundle in place. No other needs voiced at this time. Call light within [facility]. Assessments completed and documented per flowsheet. * Gwen Casey RN - 01/07/2019 5:57 PM CDT Assessments complete and documented per flowsheet. A/Ox4. VSS. Wearing 1.5-2lpm O2 via NC. SR/ST on tele. Mild incisional pain adequately managed with scheduled tylenol. Surgical incisions clean, dry, and approximated. CTs x2 to -20 suction c 70mL out of #1, 110mL out of #2, and 180mL total output today. Ambulating with assist x1 and a walker, tachycardic (140s) and SOA c ambulation, fall bundle in place. Urine output difficult to assess today c two unmeasured occurrences - see notes below. Multiple loose BMs 01/07 after scheduled bowel regimen admin this AM. 0930 Team notified at [facility] that pt continued to have low urine output overnigh t. Bladder scan 78. Orders to encourage fluids. 1700 L.FRANCES Cardoza notified that pt has had two unmeasured occurrences today c loose stools, missed hat, not long streams. Fluids encouraged today but intake m inimal. Orders to continue to monitor. Call light within reach, will continue to monitor until transferring care to [facility] shift RN. * Jana Rabago, OT - 01/07/2019 2:45 PM CDT OCCUPATIONAL THERAPY PROGRESS NOTE Patient Name: Yun Booker Room/Bed: [place] [address] Admitting Diagnosis: Respiratory Distress Mobility Progressive Mobility Level: Walk in room Distance Walked (feet): 35 ft Level of Assistance: Stand by assistance Assistive Device: Walker Time Tolerated: 11-30 minutes Activity Limited By: Fatigue;Shortness of air Subjective Pertinent Dx per Physician: h/o COPD, bullous emphysema s/p PRICILLA bullectomy and p artial pneumonectomy (1977) who recently was admitted in [place] with a spontanou s RIGHT pneumothorax from bulla rupture and has a RIGHT chest tube with heimlich valve in place- admit from OSH for worsening hypoxia and was found to have per sistent pneumothorax; s/p talc pleurodesis 01/05 Precautions: Falls;O2 Requirement(2 chest tubes to suction) Pain / Complaints: Patient agrees to participate in therapy;Patient has no c/o p ain Objective Psychosocial Status: Willing and Cooperative to Participate Persons Present: Daughter;Physical Therapist Home Living Type of Home: House Home Layout: One Level(4 stairs to enter) Bathroom Shower / Tub: Tub/Shower Unit Bathroom Toilet: Standard Bathroom Equipment: Grab Bars in Shower(one grab bar outside of shower) Prior Function Level Of Kay: Independent with ADLs and functional transfers;Independen t with homemaking w/ ambulation Lives With: Alone 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 ADL's Where Assessed: In Bathroom;Standing at Sink Grooming Assist: Stand By Assist Grooming Deficits: Wash/Dry Hands Functional Transfer Assist: Stand By Assist Functional Transfer Deficits: Verbal Cueing;Supervision/Safety;Toilet Transfer Comment: Pt standing by chair with PT at OT arrival. Pt able to complete functio nal mobility with stand by assist and roller walker. Pt c/o shortness of air, cu es for deep breathing. Pt returned to chair. Pt reclined in chair at OT departur e. Activity Tolerance Endurance: 2/5 Tolerates 10-20 Minutes Exercise w/Multiple Rests Sitting Balance: 4/5 Moves/Returns Trunkal Midpoint 1-2 Inches in Multiple Plane s Cognition Overall Cognitive Status: WFL to Adequately Complete Self Care Tasks Safely Attention: Awake/Alert Education Persons Educated: Patient Teaching Methods: Verbal Instruction;Demonstration Patient Response: Verbalized and Demo Understanding Topics: Role of OT, Goals for Therapy;ADL Compensatory Techniques;Home safety Goal Formulation: With Patient Assessment Assessment: Decreased ADL Status;Decreased Endurance;Decreased Self-Care Trans;D ecreased High-Level ADLs Prognosis: Good;w/ Family Goal Formulation: Patient AM-PAC 6 Clicks Daily Activity Inpatient Putting on and taking off regular lower body clothes?: A Little Bathing (Including washing, rinsing, drying): A Little Toileting, which includes using toilet, bedpan, or urinal: A Little Putting on and taking off regular upper body clothing: A Little Taking care of personal grooming such as brushing teeth: None Eating meals?: None Daily Activity Raw Score: 20 Standardized (t-scale) score: 42.03 CMS 0-100% Score: 38.32 CMS G Code Modifier: CJ Plan OT Frequency: 2-3x/week OT Plan for Next Visit: Continued endurance with standing grooming; toileting as able ADL Goals Patient Will Perform Grooming: Standing at Sink;w/ Supervision/Safety;Met Patient Will Perform LE Dressing: In Chair;w/ Safety/Supervision Patient Will Perform Toileting: w/ Supervision/Safety Functional Transfer Goals Pt Will Perform All Functional Transfers: w/ Supervision, w/ Good Judgment/Safet y OT Discharge Recommendations Recommendation: Home/prior living situation Patient Currently Requires Physical Assist With: Ambulation, Transfers, Toiletin g, Dressing, Bathing Patient Currently Requires Equipment: Walker with wheels Therapist: RITO Whittaker/Violetta [id number] Date: 01/07/2019 * Dedra Hurtado - 01/07/2019 2:38 PM CDT PHYSICAL THERAPY PROGRESS NOTE MOBILITY: Progressive Mobility Level: Walk in room Distance Walked (feet): 35 ft Level of Assistance: Stand by assistance Assistive Device: Walker Time Tolerated: 11-30 minutes Activity Limited By: Fatigue;Shortness of air SUBJECTIVE: Significant hospital events: h/o COPD, bullous emphysema s/p PRICILLA bullectomy and partial pneumonectomy (1977) who recently was admitted in [place] with a spontan ous RIGHT pneumothorax from bulla rupture and has a RIGHT chest tube with heimli ch valve in place- admit from [facility] for worsening hypoxia and was found to have p ersistent pneumothorax; s/p talc pleurodesis 01/05 Mental / Cognitive Status: Alert;Oriented;Cooperative Persons Present: Occupational Therapist;Daughter Pain: Patient has no complaint of pain Comments: 2 chest tubes for portable suction Comments:Ambulation Assist: Independent Mobility in Community without Device Patient Owned Equipment: None Home Situation: Lives Alone Type of Home: House Entry Stairs: 3-5 Stairs(4) In-Home Stairs: No Stairs Therapist contacted team; patient to remain on suction. Portable suction not in room. Therapist reordered suction however has not yet arrived when attempted pepe k. Patient on wall suction for therapy session. BED MOBILITY/TRANSFERS: Comments: Patient up to chair upon arrival. Transfer Type: Sit to/from Stand Transfer: Assistance Level: To/From;Bed Side Chair;Standby Assist Transfer: Assistive Device: Roller Walker Transfers: Type Of Assistance: For Safety Considerations Other Transfer Type: Sit to/from Stand Other Transfer: Assistance Level: To/From;Toilet;Standby Assist Other Transfer: Assistive Device: Roller Walker Other Transfer: Type Of Assistance: For Safety Considerations End Of Activity Status: Up in Chair;Nursing Notified;Instructed Patient to Reque st Assist with Mobility;Instructed Patient to Use Call Light BALANCE: Standing Balance: Dynamic Standing Balance;Minimal Assist GAIT: Gait Distance: 35 feet Gait: Assistance Level: Standby Assist;Management of Lines Gait: Assistive Device: Roller Walker Gait: Descriptors: Pace: Slow;Swing-Through Gait Comments: 3L O2 via HFNC Activity Limited By: Complaint of Fatigue;SOA EDUCATION: Persons Educated: Patient/Family Patient Barriers To Learning: None Noted Teaching Methods: Verbal Instruction Patient Response: Verbalized Understanding Topics: Plan/Goals of PT Interventions;Safety Awareness;Up with Assist Only;Impo rtance of Increasing Activity;Ambulate With Nursing ASSESSMENT/PROGRESS: Assessment/Progress: Should Improve w/ Continued PT;Expect Good Progress Turning from your back to your side while in a flat bed without using bed rails: None Moving from lying on your back to sitting on the side of a flatbed without using bedrails : A Little Moving to and from a bed to a chair (including a wheelchair): A Little Standing up from a chair using your arms (e.g. wheelchair, or bedside chair): A Little To walk in hospital room: A Little Climbing 3-5 steps with a railing: A Little Raw Score: 19 Standardized (T-scale) Score: 42.48 Basic Mobility CMS 0-100%: 36.99 CMS G Code Modifier for Basic Mobility: CJ GOALS: Goal Formulation: With Patient Time For Goal Achievement: 5 days Patient Will Go Supine To/From Sit: Independently Patient Will Transfer Sit to Stand: Independently Patient Will Ambulate: Greater than 200 Feet, w/ No Device, w/ Stand By Assist Patient Will Go Up / Down Stairs: 3-5 Stairs, w/ Stand By Assist PLAN: Treatment Interventions: Mobility Training;Balance Activities;Endurance Training Plan Frequency: 5 Days per Week PT Plan for Next Visit: Progress gait RECOMMENDATIONS: Recommendation: Home/prior living situation Comments: Therapy will continue to assess for equipment needs. Therapist: Dedra Hurtado Date: 01/07/2019 * Eva Shelton, MANAGER OF BROADCAST CONTENT-BACK GRINDER - 01/07/2019 7:22 AM CDT CARDIOTHORACIC SURGERY DAILY PROGRESS NOTE PROCEDURE: RIGHT VIDEO ASSISTED THORACOSCOPY WITH MECHANICAL PLEURODESIS: 06119 (CPT) THORACOTOMY WITH EXPLORATION, WITH CREATION OF PNEUMO-PERITONEUM: 95635 (CPT) POD #: 2 SUBJECTIVE: resting comfortably in bed Overnight events: None. ASSESSMENT: Active Hospital Problems Diagnosis Pneumothorax on right Severe malnutrition (HCC) On mechanically assisted ventilation (HCC) Other emphysema (HCC) Acute respiratory failure with hypoxia (HCC) Bullous emphysema with collapse (HCC) PLAN: Neuro Alert and oriented. Continue PRN oxycodone with scheduled Tylenol. CV SR 70-80s, BP 120s, no SILK TRIMMER cardiac medications. Resp Daily CXR bedside interpretation: lungs expanded, thoracostomy tube s in place. Will await radiology report. Extubated 5 a.m, is on 1-2lpm O2. Co ntinue IS, aggressive pulm toilet. Chest tubes in place, air leak noted in both- Keep to -20 continuous suction. Renal Scr 0.40. Monitor BMP, assess for CAROLINE. UO 435ml 24/hr, possibly bolus today if no improvement. GI - Regular diet, no BM post op, continue post op bowel regimen. ID Afebrile, WBC 5.9. Heme Hgb 11.2, Hct 33.5. Cont SQ heparin, continue mechanical prophylaxis. FEN If creatinine < 2.0, replace Mg and K per CTS post op protocol. Activity Up with SBA, OOBTC, walk TID, progress mobility as tolerated. Disposition - Continue inpatient care while chest tubes remain to -20 suction wi th air leaks. Monitor daily CXR and labs. OBJECTIVE: Vitals: 01/06/19 2115 01/06/19 2342 01/07/19 0401 01/07/19 0600 BP: 128/75 126/61 Pulse: 102 103 83 Temp: 36.6 C (97.8 F) 36.7 C (98.1 F) SpO2: 100% 95% 95% Weight: 43.4 kg (95 lb 9.6 oz) Height: Physical Exam: General: A&O x 3 Cardiovascular: RRR no rub or murmur Respiratory: LS CTA rocky, Right CT's x2 to wall suction, s/s output, + air leaks GI: soft, NT, +BS Extremities: No Edema Incisions: right VAT incision clean, dry, intact with drsg, Other incision C/D/I with surgical adhesive Prophylaxis Review: Lines: No Antibiotic Usage: No VTE: Pharmacological prophylaxis; SQ Heparin and Mechanical prophylaxis; Sequen tial compression device Urinary Catheter: No Chest Tubes OUTPUT/24 HOURSAIR LEAK PRESENT Pleural #1120 yes Pleural #2 150 yes LABS: 24-hour labs: Results for orders placed or performed during the hospital encounter of 01/01/19 (from the past 24 hour(s)) POC BLOOD GAS ARTERIAL Collection Time: 01/06/19 9:33 AM Result Value Ref Range PH-ART-POC 7.38 7.35 - 7.45 [id number] 44 35 - 45 MMHG PO2-ART-POC 123 (H) 80 - 100 MMHG Base Ex-ART-POC 1.0 MMOL/L O2 Sat-ART-POC 99.0 95 - 99 % Nivdeyhmjlp-LMH-JPR 26.1 21 - 28 MMOL/L BASIC METABOLIC PANEL Collection Time: 01/07/19 3:46 AM Result Value Ref Range Sodium 137 137 - 147 MMOL/L Potassium 4.0 3.5 - 5.1 MMOL/L Chloride 102 98 - 110 MMOL/L CO2 28 21 - 30 MMOL/L Anion Gap 7 3 - 12 Glucose 109 (H) 70 - 100 MG/DL Blood Urea Nitrogen 10 7 - 25 MG/DL Creatinine 0.40 0.4 - 1.00 MG/DL Calcium 8.4 (L) 8.5 - 10.6 MG/DL eGFR Non >60 >60 mL/min eGFR >60 >60 mL/min CBC Collection Time: 01/07/19 3:46 AM Result Value Ref Range White Blood Cells 5.9 4.5 - 11.0 K/UL RBC 3.32 (L) 4.0 - 5.0 M/UL Hemoglobin 11.2 (L) 12.0 - 15.0 GM/DL Hematocrit 33.5 (L) 36 - 45 % MCV 101.1 (H) 80 - 100 FL MCH 33.6 26 - 34 PG MCHC 33.3 32.0 - 36.0 G/DL RDW 13.2 11 - 15 % Platelet Count 275 150 - 400 K/UL MPV 7.2 7 - 11 FL MAGNESIUM Collection Time: 01/07/19 3:46 AM Result Value Ref Range Magnesium 2.2 1.6 - 2.6 mg/dL ISAIAS Gardner-C Pager [phone] * Ada Denny, RN - 01/07/2019 6:37 AM CDT Assumed care around 2330 when pt arrived to unit. A&Ox4. VSS per pt trend. Tolerating 1.5-2L via NC, denies SOA. SR to ST (low 100's) on tele overnight. Mild pain overnight, but denied pain meds. Denies N/V. Surgical incisions CDI. CT #1 -20 CO suction w/ 40 mLs serosanguinous output overnight. CT #2 -20 CO ribeiro ction w/ 40 mLs serosanguinous output overnight. Both CT have air leaks. Last BM SILK TRIMMER. Marginal UOP overnight. HFR bundle in place. No other needs voiced at this time. Call light within reach. Assessments compl eted and documented per flowsheet. * Ada Denny RN - 01/06/2019 11:58 PM CDT Patient arrived to room #412 via bed accompanied by RN. Patient transferred to [facility] bed with assistance. Bedside safety checks completed. Initial patient assessm ent completed. Refer to flowsheet for details. Admission skin assessment completed with: ELIAS Robb RN Pressure injury present on arrival?: Yes - previous unit already assessed/docume nting on. 1. Head/Face/Neck: No 2. Trunk/Back: No 3. Upper Extremities: No 4. Lower Extremities: No 5. Pelvic/Coccyx: Yes - Stage 1 6. Assessed for device associated injury? Yes 7. Malnutrition Screening Tool (Nursing Nutrition Assessment) Completed? Yes See Doc Flowsheet for additional wound details. INTERVENTIONS: Will apply Criticaid Barrier Cream to pt's coccyx, and encourage ambulation/rout ine repositioning. * Estrellita Sarkar RN - 01/06/2019 9:49 PM CDT 01/06 1930- Assumed pt care at this time. Bedside safety check performed, plan of care reviewed. 1999- Physical assessment complete, please see ICU flowsheet for details. Will c ontinue to monitor. 2339- Report given to ELIAS Caballero. Pt left with RN x2 to room HC412. VSS per pt cheng nds. * Sara Urban, RT - 01/06/2019 9:15 PM CDT RT Adult Assessment Note NAME:Yun Booker :1945 AG E: 73 y.o. ADMISSION DATE: 01/01/2019 DAYS ADMITTED: LOS: 6 days RT Treatment Plan: Protocol Plan: Medications Albuterol: Neb Q4h While Awake & PRN Tiotropium: MDI Q Day Protocol Plan: Procedures Vest Airway Clearance: Q4h While Awake PAP: Q4h PAP While Awake IPPB: Place a nursing order for "IS Q1h While Awake" for any of Lung Expansion i ndicators Oxygen/Humidity: O2 to keep SpO2 > 92% Monitoring: Pulse oximetry BID & PRN Additional Comments: Impressions of the patient: Pt resting in bed, stable on 2L NC Intervention(s)/outcome(s): CTS RT Protocol as stated above. Patient education that was completed: NA Recommendations to the care team: NA Vital Signs: Pulse: 103 RR: 20 PER MINUTE SpO2: 95 % O2 Device: Liter Flow: 2 Lpm O2%: Breath Sounds: Respiratory Effort: * Aron Smith RN - 01/06/2019 6:24 PM CDT 1155 - Pt reassessed. Neurologically intact. Up to chair. Arriaga and art line removed as ordered. Tele status. No other change from last assessment. Will c ontinue to monitor. 1610 - Pt reassessed. Remains in chair. Nausea with activity, zofran given. N o other change from last assessment. Will continue to monitor. * Yancy Sloan MD - 01/06/2019 4:48 PM CDT Critical Care Progress Note Today's Date: 01/06/2019 Name: Yun Booker Admission Date: 01/01/2019 LOS: 5 days Assessment/Plan: Principal Problem: Pneumothorax on right Active Problems: Acute respiratory failure with hypoxia (HCC) Bullous emphysema with collapse (HCC) On mechanically assisted ventilation (HCC) Other emphysema (HCC) 73 yo female with emphysematous lungs now s/p talc pleurodesis. Neuro: Prn pain meds Cardiac: stable Pulmonary: I/S, OOB. Leave chest tubes to suction. FEN: AAT ID: periop abx complete Renal: stable Heme: stable Endo: Modified [place] Insulin Protocol Prophylaxis: HOB>40, PPI, SQH Disposition/Family: stable for tele __ Subjective: Yun Booker is a 73 y.o. female. Overnight Events: Significant event: extub ated. Patient doing well Objective: Medications: Scheduled Meds: acetaminophen (TYLENOL) tablet 1,000 mg 1,000 mg Oral Q6H while awake Or acetaminophen (TYLENOL) oral solution 1,000 mg 1,000 mg Per NG tube Q6H while aw nilda albuterol 0.083% (PROVENTIL; VENTOLIN) nebulizer solution 2.5 mg 2.5 mg Inhalati on Q4H While Awake fluticasone-salmeterol (ADVAIR DISKUS) 250-50 mcg/dose inhalation disk 1 puff 1 puff Inhalation BID folic acid (FOLVITE) tablet 1 mg 1 mg Oral QDAY heparin (porcine) PF syringe 5,000 Units 5,000 Units Subcutaneous TID polyethylene glycol 3350 (MIRALAX) packet 17 g 17 g Oral BID senna/docusate (SENOKOT-S) tablet 2 tablet 2 tablet Oral BID Or senna/docusate (SENOKOT-S) solution 20 mL 20 mL Per NG tube BID thiamine mononitrate tablet 100 mg 100 mg Oral QDAY tiotropium (SPIRIVA) capsule for inhaler 1 capsule 1 capsule Inhalation QDAY Continuous Infusions: lactated ringers infusion Stopped (01/06/19 0859) PRN and Respiratory Meds:acetaminophen Q4H PRN, alum/mag hydroxide/simeth Q4H HI N, bisacodyl QDAY PRN, bupivacaine 0.5%/EPINEPHrine 1:200,000 Intra-procedure Me d, fentaNYL citrate PF Q1H PRN, hydrALAZINE Q6H PRN, hydrogen peroxide(+) Intra- procedure Med, milk of magnesia (CONC) QDAY PRN, naloxone PRN, ondansetron Q6H P RN OR ondansetron (ZOFRAN) IV Q6H PRN, oxyCODONE Q4H PRN, potassium chloride SR PRN OR potassium chloride PRN OR potassium chloride in water PRN, so dium chloride 0.9% irrigation bottle Intra-procedure Med Vital Signs: Last Filed Vital Signs: 24 Hour Ra nge BP: 78/65 (01/05 2300) ABP: 138/55 (01/06 1155) Temp: 36.8 C (98.3 F) (01/06 0730) Pulse: 114 (01/06 1623) Respirations: 25 PER MINUTE (01/06 1623) SpO2: 98 % (01/06 1623) O2 Delivery: Nasal Cannula (01/06 1600) BP: (78-114)/(64-78) ABP: (99-162)/(52-78) Temp: [36.2 C (97.1 F)-36.8 C (98.3 F)] Pulse: [77-114] Respirations: [11 PER MINUTE-26 PER MINUTE] SpO2: [92 %-100 %] O2 Delivery: Nasal Cannula Intensity Pain Scale (Self Report): (not recorded) Vitals: 01/03/19 0400 01/04/19 0627 01/05/19 0648 Weight: 48.2 kg (106 lb 4.2 oz) 49.1 kg (108 lb 3.9 oz) 42 kg (92 lb 9.5 oz) Critical Care Vitals: ICP Monitoring: PA Catheter: Hemodynamics/Oxycalcs: Intake/Output Summary: (Last 24 hours) Intake/Output Summary (Last 24 hours) at 01/06/2019 1649 Last data filed at 01/06/2019 1600 Gross per 24 hour Intake 1725.26 ml Output 711 ml Net 1014.26 ml Physical Exam: General: no distress, appears stated age Lungs: Clear to auscultation bilaterally CV: RRR Abdomen: Soft, non-tender. Bowel sounds normal. No masses. No organomegaly. Extremities: Extremities normal, atraumatic, no cyanosis or edema Neurologic: CNII - XII intact. PERRL Prophylaxis Review: Lines: Yes; Arterial Line; Indication: Frequent blood draws and Continuous BP monitoring; Location: Radial Central Line; Indication: Hemodynamic monitoring; Type: Internal jugular Urinary Catheter: Yes; Retain arriaga due to: Need for accurate Intake and Outpu t Antibiotic Usage: No VTE: sqh Lab Review: Pertinent labs reviewed Point of Care Testing: (Last 24 hours): Radiology and Other Diagnostic Procedures Review: Pertinent radiology reviewed. I have seen, examined and reviewed data concerning this patient. I discussed th e findings and plan of care with the ICU team. I spent 45 minutes in critical ca re time, excluding procedures today. Yancy Sloan MD Literacy Coordinator Anesthesiology and Critical Care [phone] * Sushila Crowley, RD - 01/06/2019 4:00 PM CDT CLINICAL NUTRITION Clinical Nutrition Assessment Summary NAME:Yun Booker :1945 AG E: 73 y.o. ADMISSION DATE: 01/01/2019 DAYS ADMITTED: LOS: 5 days Nutrition Assessment of Patient: BMI Categories Adult: Under Weight: < 18.5(BMI 16.9 kg/m2) Unintentional Weight Loss: > 5% in 1 month (severe) Malnutrition Assessment: Malnutrition present Current Oral Intake: Inadequate Estimated Calorie Needs: 1470 (35 kcal/kg wt 42 kg) Estimated Protein Needs: 63-84g (1.5-2 g/kg wt 42 kg) Oral Diet Order: Regular ICD-10 code E43: Acute illness/Severe malnutrition Energy intake: < 50% of estimated energy requirement for 5 days or more, Weight loss: > 5% x 1 month, Moderate loss of body fat Loss of Subcutaneous Fat: Yes Moderate Triceps Muscle Wasting: Yes Mild Clavicle, Shinto, Deltoid Edema: No Malnutrition Interventions: Ordered Vanilla Magic Cup daily; Encouraged good po intake efforts and ordering protein source with each meal. Comments: 73 yo F with COPD, bullous emphysema s/p PRICILLA bullectomy and parital pneumonectom y (1977), who was recently admitted to [facility] in [place], [place] (~5 wks ago) with acute chest pain, found to have spontaneous right pneumothorax after bullae rupture, s/p CTX with Heimlich Valve; treated for PNA. (discharged 12/21/18) She was re-ho spitalized there 01/01/19 after her initial stay with worsening hypoxia and persi stent pneumothorax. Transferred to [facility] that same day for CTS evaluation. Pt n ow s/p VAT with mechanical pleurodesis, s/p thoracotomy with exploration, creati on of pneumo-peritoneum on 01/05. Extubated this morning. Diet advanced to Regu lar for late lunch; pt ordered Mac & cheese, brownie and ice cream. Pt reports decreased appetite/PO intakes over the past month with her respiratory issues, as well as ~15# wt loss, reports her usual weight of 106#. Pt also noted to have muscle/fat loss as noted above; meeting criteria for severe malnutrition in context of acute illness. Note pt also with Stage 1 pressure injury to coccyx. Pt denies any GI distress or chewing/swallowing difficulties. Note last BM 12/30 (per documentation), bowel meds on board. Recommendation: Continue Regular diet. Encourage intake of Magic Cup at hs snack. Intervention / Plan: Monitor diet tolerance/adequacy of po intakes Monitor wt trends, GI function, pertinent labs/meds. Nutrition Diagnosis: Malnutrition Etiology: lack of appetite, respiratory issues past month Signs & Symptoms: diet history, +muscle/fat loss, 12.9% wt loss in past month Goals: Patient to consume >85% of meals/supplements Time Frame: Within 72 hours Prevent further weight loss Time Frame: Throughout stay Sushila Crowley RD,[facility] *[phone] * Cate Mackay, PT - 01/06/2019 3:40 PM CDT PHYSICAL THERAPY ASSESSMENT MOBILITY: Progressive Mobility Level: Walk in room Distance Walked (feet): 50 ft Level of Assistance: Assist X1(second person for line management) Assistive Device: Hand Held Time Tolerated: 11-30 minutes Activity Limited By: Lines / Medical Devices;Nausea;Fatigue;Weakness SUBJECTIVE: Significant hospital events: h/o COPD, bullous emphysema s/p PRICILLA bullectomy and partial pneumonectomy (1977) who recently was admitted in [place] with a spontan ous RIGHT pneumothorax from bulla rupture and has a RIGHT chest tube with heimli ch valve in place- admit from [facility]SH for worsening hypoxia and was found to have p ersistent pneumothorax; s/p talc pleurodesis 01/05 Mental / Cognitive Status: Alert;Oriented;Cooperative Persons Present: Occupational Therapist Pain: Patient has no complaint of pain Comments: 2 chest tubes to portable suction Ambulation Assist: Independent Mobility in Community without Device Patient Owned Equipment: None Home Situation: Lives Alone Type of Home: House Entry Stairs: 3-5 Stairs(4) In-Home Stairs: No Stairs STRENGTH: Overall Strength: WFL BED MOBILITY/TRANSFERS: Transfer Type: Sit to Stand Transfer: Assistance Level: To/From;Bed Side Chair;Minimal Assist Transfer: Assistive Device: Hand Hold Assist End Of Activity Status: Up in Chair;Nursing Notified BALANCE: Standing Balance: Dynamic Standing Balance;1 UE support;Minimal Assist GAIT: Gait Distance: 65 feet Gait: Assistance Level: Minimal Assist;x2 People;Management of Lines;Safety Cons iderations(2nd person for line management ) Gait: Assistive Device: Hand Hold Assist Gait: Descriptors: Decreased foot clearance RLE;Decreased foot clearance LLE;Pac e: Slow;No balance loss Comments: on the way back into the room patient had one episode of vomitting EDUCATION: Persons Educated: Patient Patient Barriers To Learning: None Noted Teaching Methods: Verbal Instruction Patient Response: Verbalized Understanding Topics: Plan/Goals of PT Interventions;Safety Awareness;Up with Assist Only;Impo rtance of Increasing Activity;Ambulate With Nursing ASSESSMENT/PROGRESS: Assessment/Progress: Should Improve w/ Continued PT Turning from your back to your side while in a flat bed without using bed rails: None Moving from lying on your back to sitting on the side of a flatbed without using bedrails : A Little Moving to and from a bed to a chair (including a wheelchair): A Little Standing up from a chair using your arms (e.g. wheelchair, or bedside chair): A Little To walk in hospital room: A Little Climbing 3-5 steps with a railing: A Little Raw Score: 19 Standardized (T-scale) Score: 42.48 Basic Mobility [facility] 0-100%: 36.99 [facility] G Code Modifier for Basic Mobility: CJ GOALS: Goal Formulation: With Patient Time For Goal Achievement: 5 days Patient Will Go Supine To/From Sit: Independently Patient Will Transfer Sit to Stand: Independently Patient Will Ambulate: Greater than 200 Feet, w/ No Device, w/ Stand By Assist Patient Will Go Up / Down Stairs: 3-5 Stairs, w/ Stand By Assist PLAN: Treatment Interventions: Mobility Training;Balance Activities;Endurance Training Plan Frequency: 5 Days per Week PT Plan for Next Visit: continue to progress ambulation RECOMMENDATIONS: Recommendation: Home/prior living situation(likely) Therapist: Cate Mackay PT, DPT Date: 01/06/2019 * Carley Marc, OT - 01/06/2019 2:10 PM CDT OCCUPATIONAL THERAPY ASSESSMENT NOTE Patient Name: Yun Booker Room/Bed: [place] [address] Admitting Diagnosis: Respiratory Distress Mobility Progressive Mobility Level: Walk in room Distance Walked (feet): 50 ft Level of Assistance: Assist X1(second person for line management) Assistive Device: Hand Held Time Tolerated: 11-30 minutes Activity Limited By: Lines / Medical Devices;Nausea;Fatigue;Weakness Subjective Pertinent Dx per Physician: h/o COPD, bullous emphysema s/p PRICILLA bullectomy and p artial pneumonectomy (1977) who recently was admitted in [place] with a spontanou s RIGHT pneumothorax from bulla rupture and has a RIGHT chest tube with heimlich valve in place- admit from OSH for worsening hypoxia and was found to have per sistent pneumothorax; s/p talc pleurodesis 01/05 Precautions: Falls;O2 Requirement(chest tubes x2 to suction; 1-2L O2 NC) Pain / Complaints: Patient demonstrates nonverbal signs of pain;Patient agrees t o participate in therapy Pain Location: (chest tube sites) Pain Level Current: (does not rate) Objective Psychosocial Status: Willing and Cooperative to Participate Persons Present: Physical Therapist;Nursing Staff Home Living Type of Home: House Home Layout: One Level(4 stairs to enter) Bathroom Shower / Tub: Tub/Shower Unit Bathroom Toilet: Standard Bathroom Equipment: Grab Bars in Shower(one grab bar outside of shower) Prior Function Level Of Kay: Independent with ADLs and functional transfers;Independen t with homemaking w/ ambulation Lives With: Alone 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 ADL's Where Assessed: Chair;Standing at Sink(hallway) Grooming Assist: Minimal Assist Grooming Deficits: Steadying;Supervision/Safety LE Dressing Assist: Stand By Assist LE Dressing Deficits: Supervision/Safety Functional Transfer Assist: Minimal Assist Functional Transfer Deficits: Steadying;Verbal Cueing;Supervision/Safety Comment: Doffs/dons BLE socks seated in chair with [id number] technique and st andby assist. Sit>stand: minimal hand-hold assist x2. Ambulates to sink with minimal hand-hold assist and second person for line management. Stands at sink for grooming with contact guard assist. Ambulates 50' in hallway with minimal hand-hold assist and second person for line management. Increased nausea with ambulation and begins vomiting. Assisted to chair with minimal assist. Left seated upright in chair with RN present. Activity Tolerance Endurance: 2/5 Tolerates 10-20 Minutes Exercise w/Multiple Rests Sitting Balance: 4/5 Moves/Returns Trunkal Midpoint 1-2 Inches in Multiple Plane s Comment: O2 desats to mid-high 80s on 1L O2 NC with activity- increased to 2L O2 NC and O2=90% with activity. Cognition Overall Cognitive Status: WFL to Adequately Complete Self Care Tasks Safely UE AROM Overall BUE AROM WNL: Yes Coordination: Adequate to Complete ADLs Grasp: Bilateral Grasp Functional for Activity UE Strength / Tone Overall Strength / Tone: WFL Able to Perform ADL Tasks Education Persons Educated: Patient Teaching Methods: Verbal Instruction Patient Response: Verbalized and Demo Understanding Topics: Role of OT, Goals for Therapy Goal Formulation: With Patient Assessment Assessment: Decreased ADL Status;Decreased Endurance;Decreased Self-Care Trans;D ecreased High-Level ADLs Goal Formulation: Patient Comments: Pt with decreased activity tolerance due to multiple recent medical ev ents and multiple acute stays. Anticipate continued progress with therapy and ribeiro bsequent d/c home at home. AM-PAC 6 Clicks Daily Activity Inpatient Putting on and taking off regular lower body clothes?: A Little Bathing (Including washing, rinsing, drying): A Little Toileting, which includes using toilet, bedpan, or urinal: A Little Putting on and taking off regular upper body clothing: A Little Taking care of personal grooming such as brushing teeth: None Eating meals?: None Daily Activity Raw Score: 20 Standardized (t-scale) score: 42.03 CMS 0-100% Score: 38.32 CMS G Code Modifier: CJ Plan OT Frequency: 5x/week OT Plan for Next Visit: Continued endurance with standing grooming; toileting as able ADL Goals Patient Will Perform Grooming: Standing at Sink;w/ Supervision/Safety Patient Will Perform LE Dressing: In Chair;w/ Safety/Supervision Patient Will Perform Toileting: w/ Supervision/Safety Functional Transfer Goals Pt Will Perform All Functional Transfers: w/ Supervision, w/ Good Judgment/Safet y OT Discharge Recommendations Recommendation: Currently patient requires inpatient level of care. However, typ [facility] progression for patient condition would anticipate home with assistance at time of discharge. Patient Currently Requires Physical Assist With: All mobility, All home function ing ADLs, Bathing, Dressing, Toileting Therapist: RITO Rubin/Violetta [id number] Date: 01/06/2019 * Colette Rodriguez, MANAGER OF BROADCAST CONTENT - 01/06/2019 11:42 AM CDT Cardiothoracic Surgery Critical Care Progress Note Yun Amanda Booker Today's Date: 01/06/2019 Admission Date: 01/01/2019 LOS: 5 days POD: 1 Procedure: RIGHT VIDEO ASSISTED THORACOSCOPY WITH MECHANICAL PLEURODESIS: 19440 (CPT) THORACOTOMY WITH EXPLORATION, WITH CREATION OF PNEUMO-PERITONEUM: 57405 (CPT) Principal Problem: Pneumothorax on right Active Problems: Acute respiratory failure with hypoxia (HCC) Bullous emphysema with collapse (HCC) On mechanically assisted ventilation (HCC) Other emphysema (HCC) Assessment/Plan: Neuro Alert and oriented. Extubated today, tolerated well. Continue PRN Fent anyl, oxycodone with scheduled Tylenol. CV SR 80-90, BP 120-150/60-70, MAP 70-90. No vasoactive infusions. Hold BB a nd ACEI in the initial post op phase. Resp Daily CXR bedside interpretation: lungs expanded, lines in place. W ill await radiology report. ABG 7.49/34/139/26.5. Extubated this AM to 1 L NC. C ontinue IS, aggressive pulm toilet. Chest tubes in place, air leak noted in both -will remain to suction today. Renal Baseline Scr 0.38, today Scr 0.63. Monitor BMP, assess for CAROLINE. UO 10- 30/hr, received 500 ml LR over night. Remove arriaga catheter today. GI - ADAT, continue post op bowel regimen. ID Afebrile, no indication for abx coverage. Complete standard post op ancef . Heme Check post op CBC/coags, assess for coagulopathy. Cont SQ heparin, cont inue mechanical prophylaxis. FEN If creatinine < 2.0, replace Mg and K per CTS post op protocol. Activity HOB to 30 degrees over 1st postop hour. Bedrest until extubated, da ngle 6 hours after extubation. Early cardiac PT/OT. Prophylaxis Review: Lines: No Antibiotic Usage: No VTE: Pharmacological prophylaxis; SQ Heparin and Mechanical prophylaxis; Sequen tial compression device and Foot pump Urinary Catheter: No Disposition: Plan as above, This patient is post-cardiac surgery and at risk for life threate sandro deterioration. Recovering as expected. Anticipate transfer to the floor [facility] today. Colette Rodriguez APRN [facility] Intensive Care Pager [phone] 01/06/2019 Subjective: HPI: Yun Booker is a 73 y.o. female with a PMH of COPD, bullous emphysema s/p PRICILLA bulectomy and partial pneumonectomy (1977). She was recently admitted to an OSH with a spontaneous right pneumothorax from bulla rupture and had a R chest tube with a heimlich valve in place. She presented to [facility] with worsening hypoxia an d persistent pneumothorax. She is now s/p mechanical pleurodesis. REVIEW OF SYSTEMS: Constitutional: negative for fevers, chills and fatigue Eyes: negative for visual disturbance Respiratory: negative for cough, sputum, wheezing or pain at R chest tube site Cardiovascular: negative for chest pressure/discomfort, dyspnea, palpitations Gastrointestinal: negative for nausea, vomiting, constipation and abdominal pain Hematologic/lymphatic: negative for bleeding Musculoskeletal:negative for myalgias, arthralgias and muscle weakness Objective: Medications: Scheduled Meds: acetaminophen (TYLENOL) tablet 1,000 mg 1,000 mg Oral Q6H while awake Or acetaminophen (TYLENOL) oral solution 1,000 mg 1,000 mg Per NG tube Q6H while aw nilda albuterol 0.083% (PROVENTIL; VENTOLIN) nebulizer solution 2.5 mg 2.5 mg Inhalati on Q4H While Awake famotidine (PEPCID) tablet 20 mg 20 mg Oral BID Or famotidine (PEPCID) injection 20 mg 20 mg Intravenous BID fluticasone-salmeterol (ADVAIR DISKUS) 250-50 mcg/dose inhalation disk 1 puff 1 puff Inhalation BID folic acid (FOLVITE) tablet 1 mg 1 mg Oral QDAY heparin (porcine) PF syringe 5,000 Units 5,000 Units Subcutaneous TID polyethylene glycol 3350 (MIRALAX) packet 17 g 17 g Oral BID senna/docusate (SENOKOT-S) tablet 2 tablet 2 tablet Oral BID Or senna/docusate (SENOKOT-S) solution 20 mL 20 mL Per NG tube BID thiamine mononitrate tablet 100 mg 100 mg Oral QDAY tiotropium (SPIRIVA) capsule for inhaler 1 capsule 1 capsule Inhalation QDAY Continuous Infusions: lactated ringers infusion Stopped (01/06/19 0859) PRN and Respiratory Meds:acetaminophen Q4H PRN, alum/mag hydroxide/simeth Q4H HI N, bisacodyl QDAY PRN, bupivacaine 0.5%/EPINEPHrine 1:200,000 Intra-procedure Me d, fentaNYL citrate PF Q1H PRN, hydrALAZINE Q6H PRN, hydrogen peroxide(+) Intra- procedure Med, milk of magnesia (CONC) QDAY PRN, naloxone PRN, ondansetron Q6H P RN OR ondansetron (ZOFRAN) IV Q6H PRN, oxyCODONE Q4H PRN, potassium chloride SR PRN OR potassium chloride PRN OR potassium chloride in water PRN, so dium chloride 0.9% irrigation bottle Intra-procedure Med Vital Signs: Last Filed Vital Signs: 24 Hour Ra nge BP: 78/65 (01/05 2300) Temp: 36.8 C (98.3 F) (01/06 0730) Pulse: 87 (01/06 1100) Respirations: 19 PER MINUTE (01/06 1100) SpO2: 100 % (01/06 1100) O2 Delivery: Nasal Cannula (01/06 1100) SpO2 Pulse: 86 (01/06 1100) BP: (78-144)/(59-107) ABP: (98-162)/(52-78) Temp: [36.1 C (97 F)-36.8 C (98.3 F)] Pulse: [77-111] Respirations: [11 PER MINUTE-26 PER MINUTE] SpO2: [98 %-100 %] O2 Delivery: Nasal Cannula Vitals: 01/03/19 0400 01/04/19 0627 01/05/19 0648 Weight: 48.2 kg (106 lb 4.2 oz) 49.1 kg (108 lb 3.9 oz) 42 kg (92 lb 9.5 oz) Intake/Output Summary: (Last 24 hours) Intake/Output Summary (Last 24 hours) at 01/06/2019 1142 Last data filed at 01/06/2019 1100 Gross per 24 hour Intake 1926.69 ml Output 1035 ml Net 891.69 ml Physical Exam: Neuro: Alert and oriented, MARTINO Cardiovascular: RRR no rub or murmur Respiratory: LS CTA - diminished in the bases, audible air leak on R chest GI: soft, NT, hypoactive BS Extremities: No Edema, dusky hands bilaterally, warm, 4 sec cap refill Incisions: R chest tube dressings, dry and intact. No crepitus or sternal instab ility. Laboratory: LABS: Recent Labs 01/04/19 05001/05/19 0501/05/19 1330 01/06/19 0215 NA 138 135* 131* 132* K 4.2 4.1 4.4 3.8 CL 101 98 97* 100 CO2 32* 28 24 25 GAP 5 9 10 7 BUN 6* 4* 7 10 CR 0.41 0.38* 0.52 0.63 GLU 97 102* 107* 137* CA 9.2 9.3 9.0 8.5 ALBUMIN 3.1* 3.5 -- -- MG 2.0 2.1 1.9 2.3 PO4 4.2 3.9 -- -- Recent Labs 01/04/19 0509 01/05/19 0531 01/05/19 1330 01/06/19 0215 WBC 3.6* 3.8* 8.5 5.6 HGB 11.9* 12.9 13.4 12.3 HCT 36.9 39.4 39.8 37.9 PLTCT 312 337 329 317 INR -- -- 1.0 -- PTT -- -- 26.5 -- AST 17 17 -- -- ALT 11 13 -- -- ALKPHOS 55 62 -- -- CrCl cannot be calculated (Unknown ideal weight.). Vitals: 01/03/19 0400 01/04/19 0627 01/05/19 0648 Weight: 48.2 kg (106 lb 4.2 oz) 49.1 kg (108 lb 3.9 oz) 42 kg (92 lb 9.5 oz) Recent Labs 01/05/19 1615 01/06/19 0215 PHART 7.52* 7.49* PO2ART 149* 139* Radiology and Other Diagnostic Procedures Review: Reviewed * Aron Smith RN - 01/06/2019 9:55 AM CDT Pt extubated at 0945 as ordered, placed on 2LNC, OG removed. Pt A&Ox4. * Cate Ramsey MD - 01/06/2019 8:55 AM CDT Stable overnight; remains intubated/sedated to allow for lung reexpansion/positi ve pressure. Chest tubes still with large near continuous air leak and s/s drai nage (230ml and 240ml respectively overnight). CXR shows improvement in lung ex pansion. Will plan to extubate today, keep chest tubes to suction for next 48 h ours. Cate Ramsey MD * Aron Smith RN - 01/06/2019 7:42 AM CDT Pt assessed, see doc flow sheet for details. Pt sedated on propofol, follows co mmands, MARTINO, denies pain. SR/ST, BP WNL. Vent at 40% fiO2, tolerating well. F oley cath to DD, clear yellow drainage, marginal UO. OG clamped. BS + x4. Yeni st tubes x2 right chest, both with SS drainage and air leaks. VSS. Will monito r. * Kathy Randolph RN - 01/06/2019 4:00 AM CDT Pt remains intubated on propofol for sedation. Pt follows simple commands and no ds head appropriately to questions. Pt bathed and turned this morning, tolerated well. Urine output remained around 10-20mL/hour overnight. See EHR for further information. VSS will continue to monitor. * Kathy Randolph RN - 01/05/2019 11:28 PM CDT Pt remains intubated on propofol. Oxycodone PO via OG and fentanyl IVP used for pain management during chest physiotherapy. Blood pressures soft, small LR bolus given as ordered, propofol decreased. Pt follows simple commands appropriately. VSS see chart for more information. * Kathy Randolph RN - 01/05/2019 9:05 PM CDT Pt VSS, remains intubated on propofol for sedation. Pain medication given via OG tube, see eMAR for information. Pt with decreased urine output, Travis BACK GRINDER notifie d, LR fluids added. Chest tubes intact with minimal output noted and recorded. * Yancy Sloan MD - 01/05/2019 3:44 PM CDT Critical Care Progress Note Today's Date: 01/05/2019 Name: Yun Booker Admission Date: 01/01/2019 LOS: 4 days Assessment/Plan: Principal Problem: Pneumothorax on right Active Problems: Acute respiratory failure with hypoxia (HCC) Bullous emphysema with collapse (HCC) On mechanically assisted ventilation (HCC) Other emphysema (HCC) 73 yo female with emphysematous lungs now s/p talc pleurodesis. Neuro: Prn pain meds; propofol for sedation while intubated Cardiac: stable Pulmonary: PC due to high peak airway pressures - accept PIP 30- cm H2). Cannot measure plateau pressure due to chest tube leak. Leave chest tubes to suction. FEN: NPO ID: periop abx Renal: stable Heme: stable Endo: Modified [place] Insulin Protocol Prophylaxis: HOB>40, PPI, SQH Disposition/Family: Needs ICU __ Subjective: Yun Booker is a 73 y.o. female. Overnight Events: Significant event: from Or. Patient intubated overnight Objective: Medications: Scheduled Meds: acetaminophen (TYLENOL) tablet 1,000 mg 1,000 mg Oral Q6H while awake Or acetaminophen (TYLENOL) oral solution 1,000 mg 1,000 mg Per NG tube Q6H while aw nilda albuterol 0.083% (PROVENTIL; VENTOLIN) nebulizer solution 2.5 mg 2.5 mg Inhalati on Q4H While Awake ceFAZolin (ANCEF) IVP 1 g 1 g Intravenous Q8H* famotidine (PEPCID) tablet 20 mg 20 mg Oral BID Or famotidine (PEPCID) injection 20 mg 20 mg Intravenous BID fluticasone-salmeterol (ADVAIR DISKUS) 250-50 mcg/dose inhalation disk 1 puff 1 puff Inhalation BID folic acid (FOLVITE) tablet 1 mg 1 mg Oral QDAY heparin (porcine) PF syringe 5,000 Units 5,000 Units Subcutaneous TID magnesium sulfate 1 g/D5W 100 mL IVPB 1 g Intravenous ONCE polyethylene glycol 3350 (MIRALAX) packet 17 g 17 g Oral BID senna/docusate (SENOKOT-S) tablet 2 tablet 2 tablet Oral BID Or senna/docusate (SENOKOT-S) solution 20 mL 20 mL Per NG tube BID thiamine mononitrate tablet 100 mg 100 mg Oral QDAY tiotropium (SPIRIVA) capsule for inhaler 1 capsule 1 capsule Inhalation QDAY Continuous Infusions: propofol (DIPRIVAN) 10 mg/mL IV infusion Stopped (01/05/19 6109) sodium chloride 0.9 % infusion Stopped (01/05/19 1439) PRN and Respiratory Meds:acetaminophen Q4H PRN, alum/mag hydroxide/simeth Q4H HI N, bisacodyl QDAY PRN, bupivacaine 0.5%/EPINEPHrine 1:200,000 Intra-procedure Me d, fentaNYL citrate PF Q1H PRN, hydrALAZINE Q6H PRN, hydrogen peroxide(+) Intra- procedure Med, milk of magnesia (CONC) QDAY PRN, naloxone PRN, ondansetron Q6H P RN OR ondansetron (ZOFRAN) IV Q6H PRN, oxyCODONE Q4H PRN, potassium chloride SR PRN OR potassium chloride PRN OR potassium chloride in water PRN, so dium chloride 0.9% irrigation bottle Intra-procedure Med Vital Signs: Last Filed Vital Signs: 24 Hour Ra nge BP: 109/82 (01/05 1400) ABP: 130/66 (01/05 1427) Temp: 36.5 C (97.7 F) (01/05 1215) Pulse: 93 (01/05 1427) Respirations: 15 PER MINUTE (01/05 1427) SpO2: 99 % (01/05 1427) O2 Delivery: Endotracheal Tube (Oral) (01/05 1215) Weight: 42 kg (92 lb 9.5 oz) (01/05 0648) BP: (109-144)/(63-107) ABP: (127-138)/(66-70) Temp: [36.5 C (97.7 F)-36.8 C (98.3 F)] Pulse: [77-104] Respirations: [13 PER MINUTE-23 PER MINUTE] SpO2: [94 %-100 %] O2 Delivery: Endotracheal Tube (Oral) Intensity Pain Scale (Self Report): (not recorded) Vitals: 01/03/19 0400 01/04/19 0627 01/05/19 0648 Weight: 48.2 kg (106 lb 4.2 oz) 49.1 kg (108 lb 3.9 oz) 42 kg (92 lb 9.5 oz) Critical Care Vitals: ICP Monitoring: PA Catheter: Hemodynamics/Oxycalcs: Intake/Output Summary: (Last 24 hours) Intake/Output Summary (Last 24 hours) at 01/05/2019 1544 Last data filed at 01/05/2019 1500 Gross per 24 hour Intake 220 ml Output 507 ml Net -287 ml Physical Exam: General: no distress, appears stated age Lungs: Clear to auscultation bilaterally CV: RRR Abdomen: Soft, non-tender. Bowel sounds normal. No masses. No organomegaly. Extremities: Extremities normal, atraumatic, no cyanosis or edema Neurologic: CNII - XII intact. PERRL Prophylaxis Review: Lines: Yes; Arterial Line; Indication: Frequent blood draws and Continuous BP monitoring; Location: Radial Central Line; Indication: Hemodynamic monitoring; Type: Internal jugular Urinary Catheter: Yes; Retain arraiga due to: Need for accurate Intake and Outpu t Antibiotic Usage: No sqh Lab Review: Pertinent labs reviewed Point of Care Testing: (Last 24 hours): Radiology and Other Diagnostic Procedures Review: Pertinent radiology reviewed. I have seen, examined and reviewed data concerning this patient. I discussed th e findings and plan of care with the ICU team. I spent 45 minutes in critical ca re time, excluding procedures today. Yancy Sloan MD Literacy Coordinator Anesthesiology and Critical Care [phone] * Colette Rodriguez, MANAGER OF BROADCAST CONTENT - 01/05/2019 12:36 PM CDT Cardiothoracic Surgery Critical Care Progress Note Yun Kellerd Today's Date: 01/05/2019 Admission Date: 01/01/2019 LOS: 4 days POD: 0 Procedure: RIGHT VIDEO ASSISTED THORACOSCOPY WITH MECHANICAL PLEURODESIS: 36509 (CPT) THORACOTOMY WITH EXPLORATION, WITH CREATION OF PNEUMO-PERITONEUM: 80427 (CPT) Principal Problem: Pneumothorax on right Active Problems: Acute respiratory failure with hypoxia (HCC) Bullous emphysema with collapse (HCC) On mechanically assisted ventilation (HCC) Other emphysema (HCC) Assessment/Plan: Neuro Continue propofol gtt to keep RASS 0 to -2. Continue PRN Fentanyl, oxy codone with scheduled Tylenol. No plans for extubation over next day. CV SR 90-100, BP 130/100. No vasoactive infusions. Hold BB and ACEI in the i nitial post op phase. Resp Daily CXR bedside interpretation: lungs expanded, lines in place. W ill await radiology report. ABG pending. VAC: 380/12/100%/peep 8. Maintain eleva demarcus PEEP to expand lungs, may wean FiO2. Initiate IS, aggressive pulm toilet onc e extubated. Will remain intubated per Dr. Myers at least 24 hours. Chest tubes in p lace, air leak noted in both. Renal Baseline Scr 0.38. Monitor BMP, assess for CAROLINE. GI - Strict NPO, GI prophylaxis while intubated, start post op bowel regimen on POD 1. ID Afebrile, no indication for abx coverage. Complete standard post op ancef . Heme Check post op CBC/coags, assess for coagulopathy. Cont SQ heparin, cont inue mechanical prophylaxis. FEN If creatinine < 2.0, replace Mg and K per CTS post op protocol. Activity HOB to 30 degrees over 1st postop hour. Bedrest until extubated, da ngle 6 hours after extubation. Early cardiac PT/OT. Prophylaxis Review: Lines: Yes; Arterial Line; Indication: Continuous BP monitoring; Location: Ra dial Antibiotic Usage: No VTE: Mechanical prophylaxis; Sequential compression device and Foot pump Urinary Catheter: Yes; Retain arriaga due to: Need for accurate Intake and Output Disposition: The patient is post-cardiac surgery at at risk for life threatening deterioration. Patient is critically ill s/p mechanical pleurodesis with Dr. Myers. I have seen, personally fully evaluated, and discussed patient with the critical care attending and cardiothoracic surgeon. The patient is critically ill, I spe nt 60 minutes (excluding time spent performing procedures) providing and baltazar jackson directing critical care services including direct OR recovery, ventilator ma nagement, hemodynamic monitoring and management, lab and radiology review, medic ation review and management, fluid and electrolyte management and coordination o f care. Colette Rodriguez APRN [facility] Intensive Care Pager [phone] 01/05/2019 Subjective: HPI: Yun Booker is a 73 y.o. female with a PMH of COPD, bullous emphysema s/p PRICILLA bulectomy and partial pneumonectomy (1977). She was recently admitted to an OSH with a spontaneous right pneumothorax from bulla rupture and had a R chest tube with a heimlich valve in place. She presented to [facility] with worsening hypoxia an d persistent pneumothorax. She is now s/p mechanical pleurodesis. REVIEW OF SYSTEMS: Review of systems not obtained from patient due to patient factors. Objective: Medications: Scheduled Meds: acetaminophen (TYLENOL) tablet 1,000 mg 1,000 mg Oral Q6H while awake Or acetaminophen (TYLENOL) oral solution 1,000 mg 1,000 mg Per NG tube Q6H while aw nilda albuterol 0.083% (PROVENTIL; VENTOLIN) nebulizer solution 2.5 mg 2.5 mg Inhalati on Q4H While Awake famotidine (PEPCID) tablet 20 mg 20 mg Oral BID Or famotidine (PEPCID) injection 20 mg 20 mg Intravenous BID fluticasone-salmeterol (ADVAIR DISKUS) 250-50 mcg/dose inhalation disk 1 puff 1 puff Inhalation BID folic acid (FOLVITE) tablet 1 mg 1 mg Oral QDAY heparin (porcine) PF syringe 5,000 Units 5,000 Units Subcutaneous TID polyethylene glycol 3350 (MIRALAX) packet 17 g 17 g Oral BID senna/docusate (SENOKOT-S) tablet 2 tablet 2 tablet Oral BID Or senna/docusate (SENOKOT-S) solution 20 mL 20 mL Per NG tube BID thiamine mononitrate tablet 100 mg 100 mg Oral QDAY tiotropium (SPIRIVA) capsule for inhaler 1 capsule 1 capsule Inhalation QDAY Continuous Infusions: propofol (DIPRIVAN) 10 mg/mL IV infusion 60 mcg/kg/min (01/05/19 1243) sodium chloride 0.9 % infusion Stopped (01/05/19 1230) PRN and Respiratory Meds:acetaminophen Q4H PRN, alum/mag hydroxide/simeth Q4H HI N, bisacodyl QDAY PRN, bupivacaine 0.5%/EPINEPHrine 1:200,000 Intra-procedure Me d, fentaNYL citrate PF Q1H PRN, fentaNYL citrate PF Q5 MIN PRN, hydrALAZINE Q6H PRN, hydrogen peroxide(+) Intra-procedure Med, milk of magnesia (CONC) QDAY PRN, naloxone PRN, ondansetron Q6H PRN OR ondansetron (ZOFRAN) IV Q6H PRN, oxyCO DONE Q4H PRN, potassium chloride SR PRN OR potassium chloride PRN OR pot assium chloride in water PRN, sodium chloride 0.9% irrigation bottle Intra-proce dure Med Vital Signs: Last Filed Vital Signs: 24 Hour Ra nge BP: 136/107 (01/05 1230) Temp: 36.5 C (97.7 F) (01/05 1215) Pulse: 103 (01/05 1412) Respirations: 22 PER MINUTE (01/05 1412) SpO2: 99 % (01/05 1412) O2 Delivery: Endotracheal Tube (Oral) (01/05 1215) SpO2 Pulse: 100 (01/05 1230) BP: (121-144)/(63-107) ABP: (138)/(68) Temp: [36.5 C (97.7 F)-36.8 C (98.3 F)] Pulse: [77-104] Respirations: [13 PER MINUTE-23 PER MINUTE] SpO2: [94 %-100 %] O2 Delivery: Endotracheal Tube (Oral) Intensity Pain Scale (Self Report): Asleep (01/05/19 0400) Vitals: 01/03/19 0400 01/04/19 0627 01/05/19 0648 Weight: 48.2 kg (106 lb 4.2 oz) 49.1 kg (108 lb 3.9 oz) 42 kg (92 lb 9.5 oz) Intake/Output Summary: (Last 24 hours) Intake/Output Summary (Last 24 hours) at 01/05/2019 1427 Last data filed at 01/05/2019 1100 Gross per 24 hour Intake 700 ml Output 90 ml Net 610 ml Physical Exam: Neuro: Sedated, MARTINO Cardiovascular: RRR no rub or murmur Respiratory: LS CTA rocky - diminished in the bases GI: soft, NT, hypoactive BS Extremities: No Edema, dusky hands bilaterally Incisions: R chest tube dressings, dry and intact. No crepitus or sternal instab ility. Artificial airway: Endotracheal Tube Vent weaning trial: N/a Laboratory: LABS: Recent Labs 01/03/19 0335 01/04/19 0509 01/05/19 0531 01/05/19 1330 NA 141 138 135* 131* K 4.5 4.2 4.1 4.4 CL 102 101 98 97* CO2 33* 32* 28 24 GAP 6 5 9 10 BUN 6* 6* 4* 7 CR 0.44 0.41 0.38* 0.52 GLU 106* 97 102* 107* CA 9.3 9.2 9.3 9.0 ALBUMIN 3.4* 3.1* 3.5 -- MG 1.9 2.0 2.1 1.9 PO4 3.6 4.2 3.9 -- TSH 3.840 -- -- -- Recent Labs 01/03/19 0335 01/04/19 0509 01/05/19 0531 01/05/19 1330 WBC 4.7 3.6* 3.8* 8.5 HGB 12.3 11.9* 12.9 13.4 HCT 37.3 36.9 39.4 39.8 PLTCT 253 312 337 329 INR -- -- -- 1.0 PTT -- -- -- 26.5 AST 19 17 17 -- ALT 13 11 13 -- ALKPHOS 63 55 62 -- CrCl cannot be calculated (Unknown ideal weight.). Vitals: 01/03/19 0400 01/04/19 0627 01/05/19 0648 Weight: 48.2 kg (106 lb 4.2 oz) 49.1 kg (108 lb 3.9 oz) 42 kg (92 lb 9.5 oz) Recent Labs 01/05/19 1330 PHART 7.49* PO2ART 398* Radiology and Other Diagnostic Procedures Review: Reviewed * Dedra Lui OT - 01/05/2019 10:46 AM CDT OCCUPATIONAL THERAPY NO TREATMENT NOTE The patient was not seen due to: Patient at test/procedure in OR at this time. P er EMR, patient to transfer to CTS ICU after procedure. OT will continue to foll ow and provide formal evaluation and intervention, as appropriate. Therapist: RITO Bourgeois/Violetta [id number] Date: 01/05/2019 * Edwardo Gaines, PT - 01/05/2019 9:44 AM CDT PHYSICAL THERAPY NOTE Patient off the unit at OR this date. Our service will follow-up with patient to complete formal evaluation and provide treatment as appropriate. Therapist: Edwardo Gaines, PT, DPT [phone] Date: 01/05/2019 * Reina Graves RN - 01/05/2019 9:00 AM CDT Patient off unit to OR. * Jermaine Dean MD - 01/05/2019 6:21 AM CDT General Progress Note Admission Date: 01/01/2019 LOS: 4 days Assessment/Plan: Active Problems: Acute respiratory failure with hypoxia (HCC) Bullous emphysema with collapse (HCC) Pneumothorax on right 73-year-old male with history of chronic obstructive pulmonary disease, bullous emphysema status post left upper lobe bullectomy, history of pneumonectomy was a dmitted to as a transfer from [place] for non-resolving spontaneous right pneu mothorax after body rupture. He has had chest tube placement but with recurrenc e following right chest tube placement and chemical pleurodesis. Currently with persistent pneumothorax and hypoxia Persistent left hydro-pneumothorax from ruptured bullae on a background of bullo us emphysema: --Initially occurred in November 2018 for which he underwent chest tube placement a nd chemical pleurodesis. --CT scan of the chest performed on 01/02/2019 demonstrated a large right hydropn eumothorax with indwelling thoracostomy tube. Scarring and volume loss within t he left upper lobe. Leftward shift of the mediastinal structures deemed likely due to be from volume loss within the left upper lobe. Additionally, mass-effec t from the right pneumothorax that may be contributing to the mediastinal shift. Moderate emphysema --Has had chest tube/Hemlich valve placed --Original plan was to place a second chest tube/pigtail on 01/04/2019 with plan to put -20 cmH2O suctioning --Cardiothoracic surgery and pulmonary re-evaluated --IR reviewed images as well and felt it was a trapped lung /" stuck lung" --Discussed with CTS - Dr Holder who indicated that patient will undergo VATS wit h possible thoracotomy with decortication today - 01/05/19 Hypoxia: Continue on 3 L of oxygen with oxygen saturation in the mid to high 90s . COPD with bullous emphysema: Continue albuterol, Spiriva and Advair. History of alcohol abuse: Drinks 1 bottle of wine daily. Has been on thiamine a nd folate. Macrocytosis on a background of alcohol use: B12 396. On supplemental folic aci d Metabolic Alkalosis - Most likely respiratory compensation . Monitor Fluid /Electrolytes and Nutrition: --Currently n.p.o. prior to procedure --Stable electrolytes DVT prophylaxis : SCD on and holding anticoagulation prior to procedure Code status : Full code Subjective Yun Booker is a 73 y.o. female. Up already and eager about the surgery. Asked the potential success of surgery. She asked on why it was tried at [place] and f tan. Denies of chest pain, shortness of breath, fever or chills. Denies of any nausea or vomiting. Medications Scheduled Meds: albuterol 0.083% (PROVENTIL; VENTOLIN) nebulizer solution 2.5 mg 2.5 mg Inhalati on Q4H While Awake fluticasone-salmeterol (ADVAIR DISKUS) 250-50 mcg/dose inhalation disk 1 puff 1 puff Inhalation BID folic acid (FOLVITE) tablet 1 mg 1 mg Oral QDAY thiamine mononitrate tablet 100 mg 100 mg Oral QDAY tiotropium (SPIRIVA) capsule for inhaler 1 capsule 1 capsule Inhalation QDAY Continuous Infusions: PRN and Respiratory Meds:acetaminophen Q4H PRN Objective Vital Signs: Last Filed Vital Signs: 24 Sheila r Range BP: 131/64 (01/05 221) Temp: 36.7 C (98 F) (01/05 221) Pulse: 77 (01/05 221) Respirations: 18 PER MINUTE (01/05 221) SpO2: 96 % (01/05 221) O2 Delivery: Nasal Cannula (01/05 221) BP: (121-142)/(52-68) Temp: [36.4 C (97.6 F)-36.8 C (98.3 F)] Pulse: [77-101] Respirations: [18 PER MINUTE] SpO2: [94 %-98 %] O2 Delivery: Nasal Cannula Intensity Pain Scale (Self Report): Asleep (01/05/19 0400) Vitals: 01/03/19 0400 01/04/19 0627 Weight: 48.2 kg (106 lb 4.2 oz) 49.1 kg (108 lb 3.9 oz) Intake/Output Summary: (Last 24 hours) Intake/Output Summary (Last 24 hours) at 01/05/2019620 Last data filed at 01/05/2019 0615 Gross per 24 hour Intake 705 ml Output 100 ml Net 605 ml Stool Occurrence: 0 Physical Exam General: Alert, cooperative, no distress, appears stated age Head: Normocephalic, without obvious abnormality, atraumatic Eyes: Conjunctivae pink and non icteric sclera. PERRL, EOMs intact. Throat: Lips, mucosa and tongue normal. Teeth and gums normal Neck: Supple, symmetrical, trachea midline, no adenopathy, thyroid: no enlargem ent/tenderness/nodules, no carotid bruit and no JVD Lungs: Old thoracotomy scar in the left posterior upper field. Right thoracotom y with air leaks noted the suction. Rhonchi to auscultation bilaterally with d ecreased air entry in the right upper lung field Heart: Regular rate and rhythm, S1, S2 normal, no murmur, click rub or gallop Abdomen: Soft, non-tender. Bowel sounds normal. No masses. No organomegaly. Extremities: Extremities normal, atraumatic, no cyanosis or edema Integumentary system: No rash or skin lesions noted Pulses: 2+ and symmetric, all extremities DATA INTEGRATION DEVELOPER:alert and oriented to PPT, No focal neurologic deficit Lab Review reviewed Lab Results Component Value Date/Time NA 138 01/04/2019 05:09 AM K 4.2 01/04/2019 05:09 AM CL 101 01/04/2019 05:09 AM CO2 32 (H) 01/04/2019 05:09 AM GAP 5 01/04/2019 05:09 AM Lab Results Component Value Date/Time WBC 3.6 (L) 01/04/2019 05:09 AM HGB 11.9 (L) 01/04/2019 05:09 AM PLTCT 312 01/04/2019 05:09 AM Point of Care Testing (Last 24 hours) Radiology and other Diagnostics Review: --Chest x-ray reviewed MD Jermaine Sales Abebe MD Electrical [employer] Department of Internal Medicine, Hospitalist [phone] * Alirio Cuevas MD - 01/04/2019 5:24 PM CDT I spent 30 minutes with the patient reviewing her studies and explaining the [facility] medical situation to her. 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 At n [facility] she wears 2-3 liters of oxygen and none during the day. ~5 weeks ago, she w as lifting a 40 lb gate, which led to sharp pain and the subsequent ptx. Unfort unatley, the two rounds of chemical pleurodesis have left her lung entrapped, wi th an airleak, and need for continuous oxygen. She is now dyspneic with walking in her room on 5 liters of oxygen. Her chest tube is functional and manifests intermittent airleak. I recommended a vats procedure (possible thoracotomy) with decortication, and pn eumoperitoneum to elevate the diaphgram, along with mechanical pleurodesis to al leviate the current situation. She understands that she is out out other options. She is currently crippled by dyspnea, and with the entrapped lung, continued use of a drain to heimlich valve is not feasible. She accepts the potential risks of detention intubation, and she is agreeable to tracheostomy if it is required. I answered all of her questions. Plan to OR tomorrow. She will be in our ICU p ost procedure. * Birdie Johnson, PT - 01/04/2019 11:25 AM CDT PHYSICAL THERAPY NOTE Physical therapy orders received. Per discussion with OT, patient reports no con cerns with functional mobility at this time. Currently, the patient is mobilizin g in room with standby assist for safety. Tentative plan for procedure soon; rui gical plan still pending. Physical therapy will continue to monitor and follow u p after procedure to ensure continued independence with mobility. Therapist: Birdie Johnson PT, DPT Date: 01/04/2019 * Briana Leon OT - 01/04/2019 10:19 AM CDT OCCUPATIONAL THERAPY NOTE Initiated pt contact this am. Patient reports no concerns with ADLs or functiona l mobility - her only concern at this time is shortness of air with activity. Cu rrently, pt is mobilizing in room with standby assistance for safety. Patient is very independent at home, lives alone and manages her own business. Pt has supp ortive family that lives nearby who may be able to assist intermittently as need ed. Per chart review and discussion with RN, plan for procedure soon - surgical plan still pending. Occupational therapy will continue to monitor and follow up after procedure to ensure continued independence with mobility and self care act ivities. Briana Leon OTR/L [id number] * Jermaine Dean MD - 01/04/2019 6:01 AM CDT General Progress Note Admission Date: 01/01/2019 LOS: 3 days Assessment/Plan: Active Problems: Acute respiratory failure with hypoxia (HCC) Bullous emphysema with collapse (HCC) Pneumothorax on right 73-year-old male with history of chronic obstructive pulmonary disease, bullous emphysema status post left upper lobe bullectomy, history of pneumonectomy was a dmitted to as a transfer from [place] for non-resolving spontaneous right pneu mothorax after body rupture. He has had chest tube placement but with recurrenc e following right chest tube placement and chemical pleurodesis. Currently with persistent pneumothorax and hypoxia Persistent left hydro-pneumothorax from ruptured bullae on a background of bullo us emphysema: --Initially occurred in November 2018 for which he underwent chest tube placement a nd chemical pleurodesis. --CT scan of the chest performed on 01/02/2019 demonstrated a large right hydropn eumothorax with indwelling thoracostomy tube. Scarring and volume loss within t he left upper lobe. Leftward shift of the mediastinal structures deemed likely due to be from volume loss within the left upper lobe. Additionally, mass-effec t from the right pneumothorax that may be contributing to the mediastinal shift. Moderate emphysema --Has had chest tube placed and is on water seal --Plan is to place a second chest tube/pigtail on 01/04/2019 with plan to put -20 cmH2O suctioning -- plan to monitor chest x-ray daily --Cardiothoracic surgery and pulmonary following. --IR stating that placing another tube might not help and it is a " stuck lung" to discuss this with pulmonary --discussed with CTS, plan to discuss if there is a surgical option Hypoxia: Has been on 3 L of oxygen with oxygen saturation in the mid to high 90s . COPD with bullous emphysema: Continue albuterol, Spiriva and Advair. History of alcohol abuse: Drinks 1 bottle of wine daily. Has been on thiamine a nd folate. Monitor and --d/c AWAS Macrocytosis on a background of alcohol use: B12 396. On supplemental folic aci d Metabolic Alkalosis - Most likely respiratory compensation . Monitor Fluid /Electrolytes and Nutrition: --Currently n.p.o. prior to procedure --Stable electrolytes DVT prophylaxis : SCD on and holding anticoagulation prior to procedure Code status : Full code Subjective Yun Booker is a 73 y.o. female. No events overnight. This morning, she feels well but with shortness of breath with exertion but none at rest. She denies a ny fever chills, chest pain, nausea vomiting, leg swelling. Having bowel moveme nts. Medications Scheduled Meds: albuterol 0.083% (PROVENTIL; VENTOLIN) nebulizer solution 2.5 mg 2.5 mg Inhalati on Q4H While Awake fluticasone-salmeterol (ADVAIR DISKUS) 250-50 mcg/dose inhalation disk 1 puff 1 puff Inhalation BID folic acid (FOLVITE) tablet 1 mg 1 mg Oral QDAY magnesium chloride (MAG DELAY) tablet 535 mg 535 mg Oral BID thiamine mononitrate tablet 100 mg 100 mg Oral QDAY tiotropium (SPIRIVA) capsule for inhaler 1 capsule 1 capsule Inhalation QDAY Continuous Infusions: PRN and Respiratory Meds:acetaminophen Q4H PRN Objective Vital Signs: Last Filed Vital Signs: 24 Sheila r Range BP: 123/54 (01/05 224) Temp: 36.7 C (98 F) (01/05 224) Pulse: 85 (01/05 224) Respirations: 18 PER MINUTE (01/05 224) SpO2: 95 % (01/05 224) O2 Delivery: Nasal Cannula (01/05 224) BP: (117-138)/(54-77) Temp: [36.3 C (97.4 F)-36.8 C (98.2 F)] Pulse: [85-106] Respirations: [17 PER MINUTE-20 PER MINUTE] SpO2: [93 %-97 %] O2 Delivery: Nasal Cannula Vitals: 01/03/19 0400 Weight: 48.2 kg (106 lb 4.2 oz) Intake/Output Summary: (Last 24 hours) Intake/Output Summary (Last 24 hours) at 01/04/2019 0601 Last data filed at 01/04/2019 0030 Gross per 24 hour Intake 440 ml Output 540 ml Net -100 ml Stool Occurrence: 0 Physical Exam General: Alert, cooperative, no distress, appears stated age Head: Normocephalic, without obvious abnormality, atraumatic Eyes: Conjunctivae pink and non icteric sclera. PERRL, EOMs intact. Throat: Lips, mucosa and tongue normal. Teeth and gums normal Neck: Supple, symmetrical, trachea midline, no adenopathy, thyroid: no enlargem ent/tenderness/nodules, no carotid bruit and no JVD Lungs: Old thoracotomy scar in the left posterior upper field. Right thoracotom y with air leaks noted the suction. Rhonchi to auscultation bilaterally with d ecreased air entry in the right upper lung field Heart: Regular rate and rhythm, S1, S2 normal, no murmur, click rub or gallop Abdomen: Soft, non-tender. Bowel sounds normal. No masses. No organomegaly. Extremities: Extremities normal, atraumatic, no cyanosis or edema Integumentary system: No rash or skin lesions noted Pulses: 2+ and symmetric, all extremities DATA INTEGRATION DEVELOPER:alert and oriented to PPT, No focal neurologic deficit Lab Review reviewed Lab Results Component Value Date/Time NA 141 01/03/2019 03:35 AM K 4.5 01/03/2019 03:35 AM CL 102 01/03/2019 03:35 AM CO2 33 (H) 01/03/2019 03:35 AM GAP 6 01/03/2019 03:35 AM Lab Results Component Value Date/Time WBC 4.7 01/03/2019 03:35 AM HGB 12.3 01/03/2019 03:35 AM PLTCT 253 01/03/2019 03:35 AM Point of Care Testing (Last 24 hours) Radiology and other Diagnostics Review: --Chest x-ray reviewed MD Jermaine Sales Abebe MD Electrical [employer] Department of Internal Medicine, Hospitalist [phone] * Jordin Hoyos RT - 01/03/2019 4:42 PM CDT RT Adult Assessment Note NAME:Yun Booker :1945 AG E: 73 y.o. ADMISSION DATE: 01/01/2019 DAYS ADMITTED: LOS: 2 days RT Treatment Plan: Protocol Plan: Medications Albuterol: Neb Q4h While Awake & PRN Albuterol/Ipratropium: Discontinued Tiotropium: MDI Q Day Protocol Plan: Procedures PEP Therapy: Discontinued PAP: Discontinued Oxygen/Humidity: O2 to keep SpO2 > 92% Monitoring: Pulse oximetry BID & PRN Comment: Advair BID Additional Comments: Impressions of the patient: no wob or soa Intervention(s)/outcome(s): assessment Patient education that was completed: none Recommendations to the care team: discontinue hyperinflation therapy, add spiriv a change to albuterol q4wa, continue advair Vital Signs: Pulse: 105 RR: 20 PER MINUTE SpO2: O2 Device: High Flow Nasal Cannula Liter Flow: 3 Lpm O2%: Breath Sounds: Respiratory Effort: Non-Labored * Claudia España RN - 01/03/2019 1:49 PM CDT Patient arrived to room # (*4508) via wheelchair accompanied by transport. Barbiee nt transferred to the bed without assistance. Bedside safety checks completed. I nitial patient assessment completed. Refer to flowsheet for details. Admission skin assessment completed with: Ciaran Acevedo RN Pressure injury present on arrival?: No 1. Head/Face/Neck: No 2. Trunk/Back: No 3. Upper Extremities: No 4. Lower Extremities: No 5. Pelvic/Coccyx: No 6. Assessed for device associated injury? Yes 7. Malnutrition Screening Tool (Nursing Nutrition Assessment) Completed? Yes See Doc Flowsheet for additional wound details. * Dedra Salcido RN - 01/03/2019 1:06 PM CDT Report called to ELIAS Taylor on [id number] * Cate Ramsey MD - 01/03/2019 12:29 PM CDT CTS Progress Note CT chest with contrast obtained yesterday showing multiple apical blebs and a la rge persistent right pneumothorax; the previously placed chest tube appears to b e in appropriate position. Unclear at this point why her lung has failed to ree xpand with her tube in place. At this time we would recommend placement of an a dditional pigtail catheter under IR guidance in order to fully evacuate her pneu mothorax and see if her lung will reexpand; there is some concern that her lung may be trapped given her history of talc pleurodesis. Once pigtail is in place would keep on -20 suction and monitor with daily CXRs for expansion. We will con tinue to follow along with you. Cate Ramsey MD * Rowan Trevino - 01/03/2019 7:55 AM CDT Brief Pulmonary Note: Chart reviewed, and patient seen and examined this morning. She reports shortnes s of breath w/ any exertion and intermittent R-sided back pain w/ inspiration. C ontinues to have significant air leak w/ chest tube on water seal. CT chest perf ormed yesterday showed large R hydropneumothorax. - Agree w/ holding antibiotics as she does not seem to have active infection. - Await CTS recommendations. - Will continue to follow. Rowan Trevino MD PGY-4, Pulmonary Disease & Critical Care Medicine Pager [phone] * Marita Cobos RT - 01/03/2019 6:26 AM CDT RT Adult Assessment Note NAME:Yun Booker :1945 AG E: 73 y.o. ADMISSION DATE: 01/01/2019 DAYS ADMITTED: LOS: 2 days RT Treatment Plan: Protocol Plan: Medications Albuterol/Ipratropium: Neb Q4h While Awake & PRN Protocol Plan: Procedures PEP Therapy: Q4h PAP While Awake PAP: Q4h PAP While Awake IPPB: Place a nursing order for "IS Q1h While Awake" for any of Lung Expansion i ndicators Oxygen/Humidity: O2 to keep SpO2 > 92% Monitoring: Pulse oximetry BID & PRN Comment: Advair BID Vital Signs: Pulse: 81 RR: SpO2: 94 % O2 Device: High Flow Nasal Cannula Liter Flow: 3 Lpm O2%: Breath Sounds: Respiratory Effort: Non-Labored * Nasir Arellano MD - 01/03/2019 6:14 AM CDT Progress Note Yun Booker Date of Admission: 01/01/2019 ASSESSMENT AND PLAN: Active Problems: Acute respiratory failure with hypoxia (HCC) Bullous emphysema with collapse (HCC) Pneumothorax on right Mrs. Booker is a 73 year old female with COPD, bullous emphysema s/p PRICILLA bullectom y, hx of pneumonectomy who was transferred after prolonged hospitalization in [place], [place] with spontaneous right pneumothorax after bullae rupture. The patient h as had a persistent pneumothorax despite placement of right chest tube and an at tempted chemical pleurodesis at the outside hospital. She was re-hospitalized th ere after her initial stay with worsening hypoxia and persistent pneumothorax. Interval Changes: -Case discussed with CTS and plan for 2nd chest tube placement to assess if pneu mothorax will resolve prior to consider invasive thoracic surgery -NPO@ midnight -TSH, vitamin b12 for macrocytosis ##Persistent left hydropneumothorax -Occurred in 11/2018 and underwent chest tube placement and chemical pleurodesis -Thought secondary to bullae rupture from bullous emphysema Plan: >Chest tube to water seal >Plan for 2nd chest tube placement on 5 AM >NPO @ Midnight >pulmonary consulted, appreciate recommendations >CTS consulted, appreciate recommendations >Continue SILK TRIMMER incruse, breo, albuterol prn >supplemental oxygen (3L) with goal sat in mid 90's ##Hx of EtOH Abuse -Approximately 1 bottle of wine daily Plan >Thiamine, folate >AWAS ##Macrocytosis -Hx of Etoh Abuse Plan: >On supplemental folic acid >Vitamin b12, TSH ##Hx of Tobacco abuse - quit smoking 4 years ago DVT Ppx: SCD, holding chemical prior to procedure Diet: Regular Code Status: Full Code Dispo: Continued inpatient stay with need for 2nd chest tube placement in AM Garfield Arellano Pager # [phone] 01/03/2019 Subjective: No acute events overnight . Pt states sadness at prolonged hospital stay. She reports she has a few dogs at home she misses. She also has a large [employer] and business matters in [place], [place]. 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 No fever or chills. No chest pain. No wheezing. She denies any nausea. She is okay with the 2nd chest tube placeme nt tomorrow that CTS would like to pursue. MEDS / ALLERGIES MEDS albuterol 0.5% 2.5 mg Inhalation Q4H & PRN enoxaparin 40 mg Subcutaneous QDAY(21) fluticasone-salmeterol 1 puff Inhalation BID folic acid 1 mg Oral QDAY ipratropium bromide 0.5 mg Inhalation Q4H & PRN magnesium chloride 535 mg Oral BID thiamine mononitrate 100 mg Oral QDAY Prn acetaminophen Q4H PRN PHYSICAL EXAMINATION: Vital Signs: Last Filed In 24 Hours Vital Signs: 24 Hour Range BP: 141/62 (01/03 339) Temp: 36.4 C (97.6 F) (01/03 339) Pulse: 81 (01/03 0510) Respirations: 18 PER MINUTE (01/03 339) SpO2: 94 % (01/03 510) O2 Delivery: Nasal Cannula (01/03 339) SpO2 Pulse: 78 (01/03 0200) Height: 157.5 cm (62.01") (01/04 400) BP: (112-143)/(56-73) Temp: [36.4 C (97.6 F)-36.9 C (98.5 F)] Pulse: [71-100] Respirations: [16 PER MINUTE-33 PER MINUTE] SpO2: [90 %-99 %] O2 Delivery: Nasal Cannula Physical Examination: GEN: Alert, oriented, in no apparent distress HEENT: Normocephalic , atraumatic, no scleral icterus Neck: No elevated JVd, supple RESP: Clear to auscultation bilaterally CVS: Regular rate and rhythm, S1+ S2+ normal, no murmur Chest: Chest tube in place on right chest with heimlich valve, decreased breath sounds in right lower lung best Pulm: No wheezing, no respiratory distress ABD: Soft, non-tender, non-distended, bowel sounds + EXT: No edema/cyanosis DATA INTEGRATION DEVELOPER: No focal deficits, holding eye contact, following commands, moving all extr emities without focal deficit LABS: Recent Labs 01/01/19163401/02/1931601/03/19334 NA 136* 137 141 K 3.9 3.5 4.5 CL 100 101 102 CO2 28 29 33* GAP 8 7 6 BUN 11 8 6* CR 0.46 0.40 0.44 GLU 103* 106* 106* CA 9.0 8.5 9.3 ALBUMIN 3.5 2.9* 3.4* MG 1.8 1.8 1.9 PO4 3.0 -- 3.6 Recent Labs 01/01/19 16301/01/19 1840 01/02/1931601/03/19334 WBC 6.1 -- 4.4* 4.7 HGB 12.3 -- 10.9* 12.3 HCT 36.8 -- 33.5* 37.3 PLTCT 378 -- 289 253 INR 1.0 -- -- -- PTT 25.8 -- -- -- AST 18 -- 14 19 ALT 15 -- 10 13 ALKPHOS 79 -- 61 63 TNI <0.03 <0.03 -- -- Endocrine: No results found for: HGBA1C, TSH EKG/RADIOLOGY Pertinent results reviewed. * Sara Hill RN - 01/03/2019 5:52 AM CDT Patient arrived to room 5106 via bed accompanied by RN. Patient transferred to [facility] bed without assistance. Bedside safety checks completed. Initial patient asse ssment completed. Refer to flowsheet for details. Admission skin assessment completed with: Sara Anne RN, Cristi Ballard RN Pressure injury present on arrival?: Yes 1. Head/Face/Neck: No 2. Trunk/Back: No 3. Upper Extremities: No 4. Lower Extremities: No 5. Pelvic/Coccyx: Yes (Stage 1 on coccyx, patient educated on increasing mobilit y) 6. Assessed for device associated injury? Yes 7. Malnutrition Screening Tool (Nursing Nutrition Assessment) Completed? Yes (Frances peterson lost 15 lbs in last month) See Doc Flowsheet for additional wound details. INTERVENTIONS: Patient oriented to room and educated on skin saving measures. Wi ll continue to monitor * Ector Short RT - 01/03/2019 4:10 AM CDT Report given to receiving therapist. * Layne Jaimes MD - 01/02/2019 6:11 AM CDT Yun Booker Today's Date: 01/02/2019 Admission Date: 01/01/2019 LOS: 1 day Assessment/Plan: Active Problems: Acute respiratory failure with hypoxia (HCC) Bullous emphysema with collapse (HCC) Pneumothorax on right 73 yo F w/ Hx of COPD, bullous emphysema s/p PRICILLA bullectomy and partial pneumone ctomy (1977) who recently was admitted in [place] with a spontanous RIGHT pneumot horax from bulla rupture and has a RIGHT chest tube with heimlich valve in place . She presented to OSH for worsening hypoxia and was found to have persistent pn eumothorax Pulm Persistent Left Pneumothorax - occurred ~ 5 wks prior to presenting at , initially managed in [place] with c hest tube and pleurodesis - possibly sec to bullous rupture - CT on left to water seal, intermittent air leak, tidaling noted - ? BPF - CTS consulted - CT chest 01/02: noted COPD - 3L NC with SpO2 mid to upper 90s - 55 pack yr hx - SILK TRIMMER Incruse, Breo, Albuterol - cont Advair and nebs Neuro ETOH - ~ 1 bottle wine dialy - thiamine/folate - AWAS if needed PPX: Lines: None Drains: Chest Tube(s): fs mL Prophylaxis Review: Nutrition present GI prophylaxis absent DVT prophylaxis lovenox Bowel Regimen: No PT/OT: Yes Insulin: No Quality Checklist Reviewed: Yes Disposition/Family: Continue care Carlos Enrique Maier APRN On [address] M3 0103 ATTESTATION I personally interviewed and examined the patient. I have reviewed the history, physical, impression and plan outlined by the Nurse Practitioner. The patient presents with no new complaints; breathing is about the same On examination there is diminished BS throughout My impression is persistent pneumothorax s/p Heimlich valve and underlying sever e bullous emphysema My plan is continue Heimlich for now. Does not appear to be actively infected/h ave pneumonia at this time. CTS is following for possible surgical intervention . OK to transfer to the floor when bed available. Staff name: Layne Jaimes MD Date: 01/02/2019 Hospital Course 73 yo lady transferred from [facility] in [place], [place] for further mgmt of a p ersistent pneumothorax. About 5 weeks ago she presented to [place] with acute ch est pain, found a spontaneous right pneumothorax, thought to be from a bullae ru pture. A chest tube was placed and she received chemical pleurodesis and a theresa lich valve was placed on the CT and was discharged 12/21 with the tube in place. Since then she has continued to experience dyspnea, oxygen desaturations, 15lb w eight loss. 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, ETOH use of 1 bottle of wine daily ___ Subjective: Yun Booker is a 73 y.o. female who had no acute events overnight. ROS: Constitutional: feels well Neuro: negative CV: negative Respiratory: negative GI/: negativeObjective: Medications: Scheduled Meds: albuterol 0.5% (PROVENTIL; VENTOLIN) nebulizer solution 2.5 mg 2.5 mg Inhalation Q4H & PRN fluticasone-salmeterol (ADVAIR DISKUS) 250-50 mcg/dose inhalation disk 1 puff 1 puff Inhalation BID folic acid (FOLVITE) tablet 1 mg 1 mg Oral QDAY ipratropium bromide (ATROVENT) 0.02 % nebulizer solution 0.5 mg 0.5 mg Inhalatio n Q4H & PRN thiamine mononitrate tablet 100 mg 100 mg Oral QDAY Continuous Infusions: PRN and Respiratory Meds:acetaminophen Q4H PRN Vital Signs: Last Filed Vital Signs: 24 Hour Ra nge BP: 116/53 (01/02 0500) Temp: 36.6 C (97.8 F) (01/02 0400) Pulse: 75 (01/02 0500) Respirations: 23 PER MINUTE (01/02 0500) SpO2: 96 % (01/02 0500) O2 Delivery: High Flow Nasal Cannula (01/02 0500) SpO2 Pulse: 75 (01/02 0500) Height: 157.5 cm (62") (01/01 1629) BP: (106-135)/(43-92) Temp: [36.6 C (97.8 F)-37 C (98.6 F)] Pulse: [71-113] Respirations: [23 PER MINUTE-33 PER MINUTE] SpO2: [87 %-99 %] O2 Delivery: High Flow Nasal Cannula There were no vitals filed for this visit. Intake/Output Summary: (Last 24 hours) Intake/Output Summary (Last 24 hours) at 01/02/2019 0611 Last data filed at 01/02/2019 0400 Gross per 24 hour Intake Output 475 ml Net -475 ml Physical Exam: General appearance: alert, poor nutritional state, cooperative, no distress and thin appearin g Head: Normocephalic, without obvious abnormality, atraumatic Eyes: conjunctivae/corneas clear. PERRL, EOM's intact. Lungs: decreased sounds on the right; some faint wheeze noted; CT on right Heart: regular rate and rhythm, S1, S2 normal, no murmur, click, rub or gallop Abdomen: soft, non-tender. Bowel sounds normal. No masses, no organomegaly Neurologic: Grossly normal Peripheral pulses: 2+ and symmetric Cap Refill: 2-3 sec Skin: Skin color, texture, turgor normal. No rashes or lesions Laboratory: LABS: Recent Labs 01/01/19 1635 01/02/19 0317 NA 136* 137 K 3.9 3.5 CL 100 101 CO2 28 29 GAP 8 7 BUN 11 8 CR 0.46 0.40 GLU 103* 106* CA 9.0 8.5 ALBUMIN 3.5 2.9* MG 1.8 1.8 PO4 3.0 -- Recent Labs 01/01/19 1635 01/01/19 1840 01/02/19 0317 WBC 6.1 -- 4.4* HGB 12.3 -- 10.9* HCT 36.8 -- 33.5* PLTCT 378 -- 289 INR 1.0 -- -- PTT 25.8 -- -- AST 18 -- 14 ALT 15 -- 10 ALKPHOS 79 -- 61 TNI <0.03 <0.03 -- CrCl cannot be calculated (Unknown ideal weight.).There were no vitals filed for this visit. Recent Labs 01/01/19 1700 PHART 7.37 PO2ART 81 Radiology and Other Diagnostic Procedures Review: Reviewed documented in this encounter H&P Notes * Eva Shelton, MANAGER OF BROADCAST CONTENT-BACK GRINDER - 01/05/2019 10:10 AM CDT History and Physical Update Note Name: Yun Booker Allergies: Patient has no known allergies. Primary Care Physician: No primary care provider on file. Verified Lab/Radiology/Other Diagnostic Tests: 24-hour labs: Results for orders placed or performed during the hospital encounter of 01/01/19 (from the past 24 hour(s)) TYPE & CROSSMATCH Collection Time: 01/04/19 1:46 PM Result Value Ref Range Units Ordered 0 Crossmatch Expires 01/07/2019 Record Check 2ND TYPE REQUIRED ABO/RH(D) A POS Antibody Screen NEG Electronic Crossmatch YES BLOOD TYPE CONFIRMATION - ORDER ONLY IF REQUESTED BY LAB Collection Time: 01/04/19 2:55 PM Result Value Ref Range ABO/RH(D) A POS CBC AND DIFF Collection Time: 01/05/19 5:31 AM Result Value Ref Range White Blood Cells 3.8 (L) 4.5 - 11.0 K/UL RBC 3.90 (L) 4.0 - 5.0 M/UL Hemoglobin 12.9 12.0 - 15.0 GM/DL Hematocrit 39.4 36 - 45 % MCV 101.1 (H) 80 - 100 FL MCH 33.2 26 - 34 PG MCHC 32.8 32.0 - 36.0 G/DL RDW 13.4 11 - 15 % Platelet Count 337 150 - 400 K/UL MPV 6.8 (L) 7 - 11 FL Neutrophils 55 41 - 77 % Lymphocytes 14 (L) 24 - 44 % Monocytes 16 (H) 4 - 12 % Eosinophils 14 (H) 0 - 5 % Basophils 1 0 - 2 % Absolute Neutrophil Count 2.10 1.8 - 7.0 K/UL Absolute Lymph Count 0.50 (L) 1.0 - 4.8 K/UL Absolute Monocyte Count 0.60 0 - 0.80 K/UL Absolute Eosinophil Count 0.50 (H) 0 - 0.45 K/UL Absolute Basophil Count 0.00 0 - 0.20 K/UL COMPREHENSIVE METABOLIC PANEL Collection Time: 01/05/19 5:31 AM Result Value Ref Range Sodium 135 (L) 137 - 147 MMOL/L Potassium 4.1 3.5 - 5.1 MMOL/L Chloride 98 98 - 110 MMOL/L Glucose 102 (H) 70 - 100 MG/DL Blood Urea Nitrogen 4 (L) 7 - 25 MG/DL Creatinine 0.38 (L) 0.4 - 1.00 MG/DL Calcium 9.3 8.5 - 10.6 MG/DL Total Protein 6.0 6.0 - 8.0 G/DL Total Bilirubin 0.3 0.3 - 1.2 MG/DL Albumin 3.5 3.5 - 5.0 G/DL Alk Phosphatase 62 25 - 110 U/L AST (SGOT) 17 7 - 40 U/L CO2 28 21 - 30 MMOL/L ALT (SGPT) 13 7 - 56 U/L Anion Gap 9 3 - 12 eGFR Non >60 >60 mL/min eGFR >60 >60 mL/min MAGNESIUM Collection Time: 01/05/19 5:31 AM Result Value Ref Range Magnesium 2.1 1.6 - 2.6 mg/dL PHOSPHORUS Collection Time: 01/05/19 5:31 AM Result Value Ref Range Phosphorus 3.9 2.0 - 4.5 MG/DL Vitals: 01/05/19 0648 01/05/19 0840 01/05/19 0924 01/05/19 0930 BP: 123/63 127/72 Pulse: 79 95 Temp: 36.6 C (97.9 F) SpO2: 96% 98% 94% Weight: 42 kg (92 lb 9.5 oz) Height: Last Dose Beta Blockers/Anticoagulants: N/A This procedure and recovery has been fully reviewed with the patient, and liviaitte n informed consent has been obtained. Surgical site marked. Will go to CTS ICU p ost op. I have examined the patient, and there are no significant changes in their condi tion, from the previous H&P performed on 01/01/19, from CTS consult note. Eva Shelton APRN-BACK GRINDER-C Pager [phone] * Reyna Medrano MD - 01/01/2019 4:28 PM CDT Admission History and Physical Examination Name: Yun Booker Admission Date: 01/01/2019 Assessment/Plan: Active Problems: Acute respiratory failure with hypoxia (HCC) Bullous emphysema with collapse (HCC) Pneumothorax on right Ms. Booker is a 73 yo F w/ Hx of COPD, bullous emphysema s/p PRICILLA bullectomy and pa rtial pneumonectomy (1977) who recently was admitted in [place] with a spontanous RIGHT pneumothorax from bulla rupture and has a RIGHT chest tube with heimlich valve in place. She presented to OSH for worsening hypoxia and was found to have persistent pneumothorax ## RIGHT pneumothorax after spontaneous bullae rupture s/p CTX with Heimlich Pushpa ve ## Bullous Emphysema ## Distant Hx of Left pneumothorax after spontaneous bullae rupture s/p PRICILLA bull ectomy/partial pneumonectomy - presented to [place] [facility] roughly 5 weeks prior with acute chest pain. Found to have spontaneous pneumothorax - s/p Thoravent without improvement and transferred to [facility] to CTX - She was treated for PNA - Discharged 12/[address] with heimlich valve. Followed up with Pulmona ry on 12/28 and reportedly everything was stable. - Presented to [place] [facility] on 01/01 with worsening hypoxia and desatura tions to the 60s. - OSH CXR with RIGHT PTX and PRICILLA opacity - Received Vanc/Zosyn for suspected PRICILLA PNA - Transferred to [facility] to Thoracic Surgery evaluation - CXR on admission with persistent right pneumothorax. PRICILLA opacity likely relate d to previous pneumonectomy or radiographic delay of recent PNA verus less likel y acute pneumonia given she has not been febrile or having productive cough. - Heimlich valve removed and chest tube hooked to atrium with water seal. Water seal with mostly expiratory air leak and minimal inspiratory leak. - Acute hypoxia persistent pneumothorax concerning for APF vs BPF or PE. Plan: > Continue CTX to water seal > CT Chest completed at OSH, will have images clouded over. > Consult CTS > Will hold off on ABx currently. Obtain Procal. ## COPD - Patient has 55 pack year smoking history - SILK TRIMMER Incruse, Breo, Abluterol nebs BID > Switch Breo to Advair due to formulary > Albuterol Nebs PRN ## EtOH Use - Drinks ~1 bottle of a wine daily. > AWAS Fluids: No IVF Electrolytes: Replace Lytes PRN Nutrition: Regular Diet DVT PPx: Lovenox Lines/Drains: RIGHT CTX. PIV Code Status: FULL CODE Disposition: Admit to MICU Patient discussed and seen by Dr. Mitchell Arteaga, DO PGY3, Internal Medicine [phone] ATTESTATION Ms Booker reports that she has been dyspneic with ambulation in her home with desa turations into the 80's since discharge 10 days ago. However, both dyspnea and desats have worsened in last 3-4 days (into the 60's). No sign of infection (WBC 6, PCT 0.02), fluid overload (BNP 36). CXR with matilad merritt PNX - working on getting CXR from clinic on Friday to ascertain whe ther it had been more expanded and collapsed. Also, it seems she had a CT with contrast at OSH - working on records to determine whether it was PE protocol. No sputum or cough to suggest COPD exacerbation. Currently on suction with air leak during part of expiratory cycle. Will contin ue this and consider CTS consult given timeline. Advair for COPD. I personally performed the calderon portions of the E/M visit, discussed case with IC U team and concur with the above documentation of history, physical exam, assess ment, and treatment plan unless otherwise noted. Staff name: Reyna Medrano MD __ Primary Care Physician: No primary care provider on file. Verified Chief Complaint: Hypoxia History of Present Illness: Yun Booker is a 73 y.o. female who presents as tr ansfer from [place] [facility] for hypoxic respiratory failure and persistent pneumothorax. Patient presented to [place] [facility] roughly 5 weeks prior with acute chest pain. Found to have spontaneous pneumothorax thought to be from a bu llae rupture. s/p Thoravent without improvement and transferred to [place] [facility] and upgrade to CTX. She states that she received some sort of chemical vi a CTX in attempts at pleurodesis. Hospitalization complicated by PNA which she f inished a course of ABx. Discharged 12/[address] with heimlich valve. F ollowed up with Pulmonary on 12/28 and reportedly everything was stable. Over the last few days she reports worsening dyspnea with desaturations to the 6 0s with activity. She reports scant dry cough, 15 lb weight loss in the last fri. She denies fevers, chills, productive cough, hemoptysis, pleuritic chest nereida n, palpitations, abdominal pain, NVCD. She has been draining ~20cc from her CTX daily of serosanguinous fluid. She presented to [place] [facility] on 01/01 with worsening hypoxia and desatu rations to the 60s. She was afebrile, HDS, saturating 96% on 5L. Labs were unrem arkable. OSH CXR with RIGHT PTX and PRICILLA opacity. Received Vanc/Zosyn for suspect ed PRICILLA PNA. Transferred to [facility] to Thoracic Surgery evaluation Medical History: Diagnosis Date Bullous emphysema with collapse (HCC) COPD (chronic obstructive pulmonary disease) (HCC) Pneumothorax, right Surgical History: Procedure Laterality Date LUNG REMOVAL, PARTIAL Left 1978 PRICILLA Family history reviewed; non-contributory Social History Socioeconomic History Marital status: Not on file Spouse name: Not on file Number of children: Not on file Years of education: Not on file Highest education level: Not on file Occupational History Not on file Social Needs Financial resource strain: Not on file Food insecurity: Worry: Not on file Inability: Not on file Transportation needs: Medical: Not on file Non-medical: Not on file Tobacco Use Smoking status: Former Smoker Packs/day: 1.00 Years: 55.00 Pack years: 55.00 Types: Cigarettes Last attempt to quit: 01/02/2016 Years since quittin.0 Smokeless tobacco: Never Used Substance and Sexual Activity Alcohol use: Yes Alcohol/week: 3.0 oz Types: 5 Glasses of wine per week Frequency: 4 or more times a week Drinks per session: 3 or 4 Binge frequency: Weekly Drug use: Not Currently Sexual activity: Not on file Lifestyle Physical activity: Days per week: Not on file Minutes per session: Not on file Stress: Not on file Relationships Social connections: Talks on phone: Not on file Gets together: Not on file Attends yarsani service: Not on file Active member of club or organization: Not on file Attends meetings of clubs or organizations: Not on file Relationship status: Not on file Intimate partner violence: Fear of current or ex partner: Not on file Emotionally abused: Not on file Physically abused: Not on file Forced sexual activity: Not on file Other Topics Concern Not on file Social History Narrative Not on file Immunizations (includes history and patient reported): There is no immunization history on file for this patient. Allergies: Patient has no known allergies. Medications: Albuterol nebulizer PRN Breo Ellipta Incruse Ellipta Review of Systems: All other systems reviewed and are negative. Physical Exam: Vital Signs: Last Filed In 24 Hours Vital Signs: 24 Hour Range BP: 125/69 (01/01 1700) Temp: 37 C (98.6 F) (01/01 1629) Pulse: 90 (01/01 1700) Respirations: 29 PER MINUTE (01/01 1700) SpO2: 95 % (01/01 1700) O2 Delivery: High Flow Nasal Cannula (01/01 1700) SpO2 Pulse: 91 (01/01 1700) Height: 157.5 cm (62") (01/01 1629) BP: (125-132)/(69-91) Temp: [37 C (98.6 F)] Pulse: [90-113] Respirations: [23 PER MINUTE-29 PER MINUTE] SpO2: [88 %-95 %] O2 Delivery: High Flow Nasal Cannula Physical Exam Constitutional: Vital signs are normal. She does not have a sickly appearance. S he does not appear ill. No distress. Thin appearing HENT: Head: Normocephalic and atraumatic. Mouth/Throat: Oropharynx is clear and moist and mucous membranes are normal. Eyes: Pupils are equal, round, and reactive to light. Conjunctivae and EOM are n ormal. Neck: No hepatojugular reflux and no JVD present. Carotid bruit is not present. Cardiovascular: Normal rate, regular rhythm, normal heart sounds and normal puls es. PMI is displaced. Exam reveals no gallop. No murmur heard. Pulmonary/Chest: Effort normal. No stridor. No respiratory distress. She has dec reased breath sounds in the right lower field. She has wheezes. She has no rales . RIGHT chest tube with heimlich valve in place. Abdominal: Soft. Normal appearance and bowel sounds are normal. She exhibits no distension. There is no tenderness. Musculoskeletal: She exhibits no edema. Neurological: She is alert. She has normal strength. No cranial nerve deficit or sensory deficit. Lab/Radiology/Other Diagnostic Tests: 24-hour labs: Results for orders placed or performed during the hospital encounter of 01/01/19 (from the past 24 hour(s)) CBC AND DIFF Collection Time: 01/01/19 4:35 PM Result Value Ref Range White Blood Cells 6.1 4.5 - 11.0 K/UL RBC 3.66 (L) 4.0 - 5.0 M/UL Hemoglobin 12.3 12.0 - 15.0 GM/DL Hematocrit 36.8 36 - 45 % MCV 100.5 (H) 80 - 100 FL MCH 33.6 26 - 34 PG MCHC 33.5 32.0 - 36.0 G/DL RDW 12.9 11 - 15 % Platelet Count 378 150 - 400 K/UL MPV 6.8 (L) 7 - 11 FL Neutrophils 72 41 - 77 % Lymphocytes 10 (L) 24 - 44 % Monocytes 11 4 - 12 % Eosinophils 7 (H) 0 - 5 % Basophils 0 0 - 2 % Absolute Neutrophil Count 4.40 1.8 - 7.0 K/UL Absolute Lymph Count 0.60 (L) 1.0 - 4.8 K/UL Absolute Monocyte Count 0.70 0 - 0.80 K/UL Absolute Eosinophil Count 0.40 0 - 0.45 K/UL Absolute Basophil Count 0.00 0 - 0.20 K/UL PROTIME INR (PT) Collection Time: 01/01/19 4:35 PM Result Value Ref Range INR 1.0 0.8 - 1.2 PTT (APTT) Collection Time: 01/01/19 4:35 PM Result Value Ref Range APTT 25.8 24.0 - 36.5 SEC COMPREHENSIVE METABOLIC PANEL Collection Time: 01/01/19 4:35 PM Result Value Ref Range Sodium 136 (L) 137 - 147 MMOL/L Potassium 3.9 3.5 - 5.1 MMOL/L Chloride 100 98 - 110 MMOL/L Glucose 103 (H) 70 - 100 MG/DL Blood Urea Nitrogen 11 7 - 25 MG/DL Creatinine 0.46 0.4 - 1.00 MG/DL Calcium 9.0 8.5 - 10.6 MG/DL Total Protein 5.9 (L) 6.0 - 8.0 G/DL Total Bilirubin 0.3 0.3 - 1.2 MG/DL Albumin 3.5 3.5 - 5.0 G/DL Alk Phosphatase 79 25 - 110 U/L AST (SGOT) 18 7 - 40 U/L CO2 28 21 - 30 MMOL/L ALT (SGPT) 15 7 - 56 U/L Anion Gap 8 3 - 12 eGFR Non >60 >60 mL/min eGFR >60 >60 mL/min LACTIC ACID (BG - RAPID LACTATE) Collection Time: 01/01/19 4:35 PM Result Value Ref Range Lactic Acid,BG 1.0 0.5 - 2.0 MMOL/L MAGNESIUM Collection Time: 01/01/19 4:35 PM Result Value Ref Range Magnesium 1.8 1.6 - 2.6 mg/dL PHOSPHORUS Collection Time: 01/01/19 4:35 PM Result Value Ref Range Phosphorus 3.0 2.0 - 4.5 MG/DL BNP (B-TYPE NATRIURETIC PEPTI) Collection Time: 01/01/19 4:35 PM Result Value Ref Range B Type Natriuretic Peptide 36.0 0 - 100 PG/ML TROPONIN-I Collection Time: 01/01/19 4:35 PM Result Value Ref Range Troponin-I <0.03 0.0 - 0.05 NG/ML BLOOD GASES, ARTERIAL Collection Time: 01/01/19 5:00 PM Result Value Ref Range pH-Arterial 7.37 7.35 - 7.45 pCO2-Arterial 52 (H) 35 - 45 MMHG pO2-Arterial 81 80 - 100 MMHG Base Excess-Arterial 3.8 MMOL/L O2 Sat-Arterial 96.3 95 - 99 % [id number] 27.8 21 - 28 MMOL/L Pertinent radiology reviewed. Rubin Arteaga DO documented in this encounter Consult Notes * Serge Hoang MD - 01/01/2019 11:50 PM CDT Associated Order(s): CONSULT CARDIOTHORACIC SURGERY PHYSICIAN CTS CONSULT Date of Service: 01/01/2019 Requesting Physician: Ron Arteaga DO Consulting Physician: Shelly Holder MD Consult Performed By: Serge Hoang MD Impression: Active Hospital Problems Diagnosis Acute respiratory failure with hypoxia (HCC) Bullous emphysema with collapse (HCC) Pneumothorax on right 73F with h/o COPD, bullous emphysema, left partial pneumonectomy, PNA and persis tent right sided pneumothorax, Plan: -On 3L NC. CXR with right pneumothorax, CT on water seal with moderate air leak -Unable to review CT scan -Keep CT on water seal given the large air leak -Continue treatment for PNA -Ideally would like her PNA to be treated before offering any surgical intervent ion. Will also try to track her CT scan Patient was discussed with Dr. Gallo Hoang MD [id number] --- HPI: 73F with h/o COPD and bullous emphysema s/p PRICILLA bullectomy and partial pneumonec chandler who presented to OSH 5 weeks ago with spontaneous right pneumothorax. Ther andrew was initially placed without improvement therefore she was transferred to [facility]. A Chest tube was placed. Per the patient, A chemical pleur odesis through the tube was attempted. She also developed pneumonia and was plac ed on abx. She was discharged on heimlich valve. Initially did well however over the past few days she developed increased dyspnea. Was noted to have a persiste nt air leak, pneumothorax and hypoxia and PRICILLA opacity concerning for pneumonia. She was started on abx then was transferred here for further management. Medical History: Diagnosis Date Bullous emphysema with collapse (HCC) COPD (chronic obstructive pulmonary disease) (HCC) Pneumothorax, right Surgical History: Procedure Laterality Date LUNG REMOVAL, PARTIAL Left 1977 PRICILLA Medications: albuterol 0.5% (PROVENTIL; VENTOLIN) nebulizer solution 2.5 mg 2.5 mg Inhalation Q4H & PRN fluticasone-salmeterol (ADVAIR DISKUS) 250-50 mcg/dose inhalation disk 1 puff 1 puff Inhalation BID folic acid (FOLVITE) tablet 1 mg 1 mg Oral QDAY ipratropium bromide (ATROVENT) 0.02 % nebulizer solution 0.5 mg 0.5 mg Inhalatio n Q4H & PRN thiamine mononitrate tablet 100 mg 100 mg Oral QDAY No Known Allergies No family history on file. 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 [employer] Tobacco Use Smoking status: Former Smoker Packs/day: 1.00 Years: 55.00 Pack years: 55.00 Types: Cigarettes Last attempt to quit: 01/02/2016 Years since quittin.0 Smokeless tobacco: Never Used Substance and Sexual Activity Alcohol use: Yes Alcohol/week: 3.0 oz Types: 5 Glasses of wine per week Frequency: 4 or more times a week Drinks per session: 3 or 4 Binge frequency: Weekly Drug use: Not Currently Sexual activity: Not on file Other Topics Concern Not on file Social History Narrative Not on file ROS: Constitutional: Negative for Fatigue, Weight Change, Fevers Eyes, Ears, Nose And Throat: Negative for Change in vision, Change in Hearing Cardiovascular: Negative for Chest Pain, Palpitations, Swelling in ankles Respiratory: +for Cough, Shortness of Breath Gastrointestinal: Negative for Nausea, indigestion, Diarrhea, Constipation, Rect al Bleeding Neurological: Negative for Headache, Memory problems, Numbness, Muscle Weakness Psychological: Negative for depression or anxiety Musculoskeletal: Negative for Pain or Swelling in joints Genitourinary: Negative for Pain with urination, Incontinence of urine, urinary frequency Skin: Negative for any unusual rash Endocrine: Negative for Any hair skin or nail changes, Unusual hunger or thirst Physical Exam: Temp: 36.6 C (97.9 F) (01/02 2000) Pulse: 94 (01/01 2300) Respirations: 33 PER MINUTE (01/01 2300) BP: 116/92 (01/01 2300) GENERAL: A&O x 3, NAD. HEENT Head: Normocephalic Teeth: Present and in good dentition NECK Active ROM: full Trachea: midline HEART Neck Veins- No JVD Carotid Arteries: No bruits Cardiac: RRR with normal S1, S2. No murmurs LUNGS Auscultation- breath sounds CTA bilaterally. Right CT on WS, + airleak, moderate ABDOMEN Soft, NT + BS EXTREMITIES Edema- No edema Posterior Tibial- 2+ rocky Dorsalis Pedis- 2+ rocky SKIN: Normal, without lesions NEUROLOGIC Grossly intact Results for orders placed or performed during the hospital encounter of 01/01/19 (from the past 24 hour(s)) CBC AND DIFF Collection Time: 01/01/19 4:35 PM # # Low-High White Blood Cells 6.1 4.5 - 11.0 K/UL RBC 3.66 (L) 4.0 - 5.0 M/UL Hemoglobin 12.3 12.0 - 15.0 GM/DL Hematocrit 36.8 36 - 45 % MCV 100.5 (H) 80 - 100 FL MCH 33.6 26 - 34 PG MCHC 33.5 32.0 - 36.0 G/DL RDW 12.9 11 - 15 % Platelet Count 378 150 - 400 K/UL MPV 6.8 (L) 7 - 11 FL Neutrophils 72 41 - 77 % Lymphocytes 10 (L) 24 - 44 % Monocytes 11 4 - 12 % Eosinophils 7 (H) 0 - 5 % Basophils 0 0 - 2 % Absolute Neutrophil Count 4.40 1.8 - 7.0 K/UL Absolute Lymph Count 0.60 (L) 1.0 - 4.8 K/UL Absolute Monocyte Count 0.70 0 - 0.80 K/UL Absolute Eosinophil Count 0.40 0 - 0.45 K/UL Absolute Basophil Count 0.00 0 - 0.20 K/UL PROTIME INR (PT) Collection Time: 01/01/19 4:35 PM # # Low-High INR 1.0 0.8 - 1.2 PTT (APTT) Collection Time: 01/01/19 4:35 PM # # Low-High APTT 25.8 24.0 - 36.5 SEC COMPREHENSIVE METABOLIC PANEL Collection Time: 01/01/19 4:35 PM # # Low-High Sodium 136 (L) 137 - 147 MMOL/L Potassium 3.9 3.5 - 5.1 MMOL/L Chloride 100 98 - 110 MMOL/L Glucose 103 (H) 70 - 100 MG/DL Blood Urea Nitrogen 11 7 - 25 MG/DL Creatinine 0.46 0.4 - 1.00 MG/DL Calcium 9.0 8.5 - 10.6 MG/DL Total Protein 5.9 (L) 6.0 - 8.0 G/DL Total Bilirubin 0.3 0.3 - 1.2 MG/DL Albumin 3.5 3.5 - 5.0 G/DL Alk Phosphatase 79 25 - 110 U/L AST (SGOT) 18 7 - 40 U/L CO2 28 21 - 30 MMOL/L ALT (SGPT) 15 7 - 56 U/L Anion Gap 8 3 - 12 eGFR Non >60 >60 mL/min eGFR >60 >60 mL/min LACTIC ACID (BG - RAPID LACTATE) Collection Time: 01/01/19 4:35 PM # # Low-High Lactic Acid,BG 1.0 0.5 - 2.0 MMOL/L MAGNESIUM Collection Time: 01/01/19 4:35 PM # # Low-High Magnesium 1.8 1.6 - 2.6 mg/dL PHOSPHORUS Collection Time: 01/01/19 4:35 PM # # Low-High Phosphorus 3.0 2.0 - 4.5 MG/DL BNP (B-TYPE NATRIURETIC PEPTI) Collection Time: 01/01/19 4:35 PM # # Low-High B Type Natriuretic Peptide 36.0 0 - 100 PG/ML TROPONIN-I Collection Time: 01/01/19 4:35 PM # # Low-High Troponin-I <0.03 0.0 - 0.05 NG/ML PROCALCITONIN Collection Time: 01/01/19 4:35 PM # # Low-High Procalcitonin 0.02 <0.10 NG/ML BLOOD BANK SAMPLE HOLD Collection Time: 01/01/19 4:35 PM # # Low-High BB Sample hold IN LAB BLOOD GASES, ARTERIAL Collection Time: 01/01/19 5:00 PM # # Low-High pH-Arterial 7.37 7.35 - 7.45 pCO2-Arterial 52 (H) 35 - 45 MMHG pO2-Arterial 81 80 - 100 MMHG Base Excess-Arterial 3.8 MMOL/L O2 Sat-Arterial 96.3 95 - 99 % [id number] 27.8 21 - 28 MMOL/L TROPONIN-I Collection Time: 01/01/19 6:40 PM # # Low-High Troponin-I <0.03 0.0 - 0.05 NG/ML Serge Hoang MD Pager [phone] Associated attestation - Shelly Holder MD - 01/02/2019 8:52 AM CDT ATTESTATION I personally performed the calderon portions of the E/M visit, discussed case with re sident and concur with resident documentation of history, physical exam, assessm ent, and treatment plan unless otherwise noted. We will plan a repeat CT scan with IV contrast today this will help develop a pl an of care. Staff name: Shelly Holder MD Date: 01/02/2019 documented in this encounter Miscellaneous Notes * Case Mgmt DC Plan - Racquel Luther RN - 01/16/2019 9:43 AM CDT Case Management Progress NoteNAME:Yun Booker MRN: [id number] :1945 AGE: 73 y.o. ADMISSION DATE: 01/01/2019 DAYS ADMITTED: LOS: 15 days Todays Date: 01/16/2019 Plan Faxed AVS and signed Home health orders to [facility] ? Support ? Info or Referral ? Discharge Planning ? Medication Needs ? Financial ? Legal ? Other Disposition ? Expected Discharge Date Expected Discharge Date: 01/16/19 Expected Discharge Time: 1300 ? Transportation Does the patient need discharge transport arranged?: Yes Transportation Name, Phone and Availability #1: Patient will call one of her chi ldren Does the patient use Medicaid Transportation?: No ? Next Level of Care (Acute Psych discharges only) ? Discharge Disposition Durable Medical Equipment No service has been selected for the patient. Destination No service has been selected for the patient. Home Care No service has been selected for the patient. [facility] No service has been selected for the patient. * Care Plan - Claudia Last RN - 01/15/2019 1:50 PM CDT Problem: Discharge Planning Goal: Participation in plan of care Outcome: Goal Ongoing Pt is an active participant in plan of care. Goal: Knowledge regarding plan of care Outcome: Goal Ongoing Pt verbalizes understanding in plan of care. Goal: Prepared for discharge Outcome: Goal Ongoing DC plan ongoing. Problem: Pain Goal: Management of pain Outcome: Goal Ongoing Pain assessed Q4 and PRN, controlled with current regimen. Problem: Respiratory Impairment (Non-Ventilated Patient) Goal: Effective gas exchange Outcome: Goal Ongoing Currently tolerating 1L NC at rest. Problem: Tissue Perfusion, Altered Goal: Adequate tissue perfusion Outcome: Goal Ongoing Pt verbalizes understanding of activities/therapies to promote adequate perfusio n. Problem: Skin Integrity Goal: Skin integrity intact Outcome: Goal Ongoing Skin assessed Q shift. C/D/I. Stage 1 to coccyx. Pt able to turn self, shift own weight, and ambulate. Goal: Healing of skin (Wound & Incision) Outcome: Goal Ongoing Incisions/dressings C/D/I. Problem: Falls, High Risk of Goal: Absence of falls-Adult Patient Outcome: Goal Ongoing High fall risk bundle in place. Problem: Self-Care Deficit Goal: Maximize ADL functioning Outcome: Goal Ongoing PT/OT following. Problem: Nutrition Deficit Goal: Adequate nutritional intake Outcome: Goal Ongoing Tolerating Regular diet. * Case Mgmt DC Plan - Luz Kulkarni RN - 01/15/2019 12:10 PM CDT Case Management Progress NoteNAME:Yun Booker MRN: [id number] :1945 AGE: 73 y.o. ADMISSION DATE: 01/01/2019 DAYS ADMITTED: LOS: 14 days Todays Date: 01/15/2019 Nurse Bevel Gear Generator Operator We ekend Needs Instructions for CM W/E Staff: Please fax AVS to [facility] ([phone], [phone]) Teaching Needs Prior to DC: n/a Expected delivery of any needed medication/supplies/equipment: n/a Agency Expected SOC and Services Planned: n/a Plan-Anticipated DC this weekend per team. Interventions ? Support EMR and POC reviewed. ? Info or Referral ? Discharge Planning Ex Ox completed and pt needing 1L at all times and 6L with exercise. Called [facility] ([phone], [phone] ) and confirmed that pt is currently on service. Confirmed pt will re quire 2 tanks to go home with. Spoke with pt and confirmed she has 1.5 tanks at home and her inogen. However, since we can not verify the inogen here she will need to use the tanks to assist her home. Pt understanding. Pt confirmed her son Earle [phone] will be the one picking her up this weekend. Called Earle (Son) and confirmed he would be able to stop by the DME company tod ay and picker machine operator two full tanks to assist his mother home upon DC. Called [facility] to confirm they will address the home concentra tor and increased O2 needs. Will fax orders to both DME company and when able. [facility] ([phone], [phone]) Update 1224- Faxed orders to both [facility] and DME provider. ? Medication Needs ? Financial ? Legal ? Other Disposition ? Expected Discharge Date Expected Discharge Date: 01/16/19 Expected Discharge Time: 1300 ? Transportation Does the patient need discharge transport arranged?: Yes Transportation Name, Phone and Availability #1: Patient will call one of her chi ldren Does the patient use Medicaid Transportation?: No ? Discharge Disposition Anticipated DC home with family when able. Luz Kulkarni RN, BSN Integrated Nurse Bevel Gear Generator Operator Pager * Care Plan - Claudia Last RN - 01/14/2019 12:40 PM CDT Problem: Discharge Planning Goal: Participation in plan of care Outcome: Goal Ongoing Pt is an active participant in plan of care. Goal: Knowledge regarding plan of care Outcome: Goal Ongoing Pt verbalizes understanding in plan of care. Goal: Prepared for discharge Outcome: Goal Ongoing DC plan ongoing. Problem: Pain Goal: Management of pain Outcome: Goal Ongoing Pain assessed Q4 and PRN, controlled with current regimen. Problem: Respiratory Impairment (Non-Ventilated Patient) Goal: Effective gas exchange Outcome: Goal Ongoing Tolerating 3L NC. Problem: Tissue Perfusion, Altered Goal: Adequate tissue perfusion Outcome: Goal Ongoing Pt displays adequate perfusion, verbalizes understanding of activities/therapies to promote adequate perfusion. Problem: Skin Integrity Goal: Skin integrity intact Outcome: Goal Ongoing Skin C/D/I, pt able to shift weight, turn self and ambulate. Goal: Healing of skin (Wound & Incision) Outcome: Goal Ongoing Incisions/dressings C/D/I. Problem: Falls, High Risk of Goal: Absence of falls-Adult Patient Outcome: Goal Ongoing High fall risk bundle in place. Problem: Self-Care Deficit Goal: Maximize ADL functioning Outcome: Goal Ongoing PT/OT following. Problem: Nutrition Deficit Goal: Adequate nutritional intake Outcome: Goal Ongoing Tolerating Regular diet. * Care Plan - Bismark Bell RN - 01/13/2019 1:45 PM CDT Problem: Pain Goal: Management of pain Outcome: Goal Ongoing pain adequately controled with current pain regimen Problem: Skin Integrity Goal: Skin integrity intact Outcome: Goal Ongoing incisions c/d/i * Care Plan - Ada Denny RN - 01/13/2019 2:43 AM CDT Problem: Discharge Planning Goal: Participation in plan of care Outcome: Goal Ongoing Pt acknowledges current POC. No concerns at this time. Problem: Skin Integrity Goal: Skin integrity intact Outcome: Goal Ongoing Skin integrity intact (except surgical incisions/wounds). Warm, race appropriat e, w/ normal turgor. Goal: Healing of skin (Wound & Incision) Outcome: Goal Ongoing Surgical incisions CDI. CT #1 and #2 to -10 CO suction w/ serosanguinous output overnight. CT #2 has known air leak. No s/s of infection. Problem: Falls, High Risk of Goal: Absence of falls-Adult Patient Outcome: Goal Ongoing HFR bundle in place. Pt uses call light appropriately. * Case Mgmt DC Plan - Luz Kulkarni RN - 01/12/2019 3:42 PM CDT Case Management Progress NoteNAME:Yun Booker MRN: [id number] :1945 AGE: 73 y.o. ADMISSION DATE: 01/01/2019 DAYS ADMITTED: LOS: 11 days Todays Date: 01/12/2019 Plan-Anticipate DC home with HH when medically stable for same. Interventions ? Support ? Info or Referral ? Discharge Planning Met with pt to discuss POC. Pt confirmed she is on 3L NC at night at home. Her current O2 is through [facility] [employer]. Pt has an Inogen at home and portable tanks if needed. Confirmed she could have family bring her O2 to bedside if needed upon DC. Pt confirmed she would like to continue using [facility] through [facility] [employer]. Called [facility] ([phone], [phone]) and confirmed pt was on service and would just need [facility] orders. [place] will send orders when appropriate. ? Medication Needs ? Financial ? Legal ? Other Disposition ? Expected Discharge Date Expected Discharge Date: 01/14/19 Expected Discharge Time: 1300 ? Transportation Does the patient need discharge transport arranged?: Yes Transportation Name, Phone and Availability #1: Patient will call one of her chi ldren Does the patient use Medicaid Transportation?: No ? Discharge Disposition Anticipated DC home with HH and family assistance. Luz Kulkarni RN, BSN Integrated Nurse Bevel Gear Generator Operator Pager * Care Plan - Bismark Bell RN - 01/12/2019 11:53 AM CDT Problem: Pain Goal: Management of pain Outcome: Goal Ongoing current pain regimen adequate Problem: Skin Integrity Goal: Skin integrity intact Outcome: Goal Ongoing incisions c/d/i Problem: Falls, High Risk of Goal: Absence of falls-Adult Patient Outcome: Goal Ongoing HFR bundle in place * Care Plan - Claudia Last RN - 01/08/2019 6:50 PM CDT Problem: Discharge Planning Goal: Participation in plan of care Outcome: Goal Ongoing Pt is an active participant in plan of care. Goal: Knowledge regarding plan of care Outcome: Goal Ongoing Pt verbalizes understanding in plan of care. Goal: Prepared for discharge Outcome: Goal Ongoing DC plan ongoing. Problem: Pain Goal: Management of pain Outcome: Goal Ongoing Pain assessed Q4 and PRN, controlled with current regimen. Problem: Respiratory Impairment (Non-Ventilated Patient) Goal: Effective gas exchange Outcome: Goal Ongoing Tolerating 1L NC. Problem: Tissue Perfusion, Altered Goal: Adequate tissue perfusion Outcome: Goal Ongoing Verbalizes understanding of activities/therapies to promote adequate perfusion. Problem: Skin Integrity Goal: Skin integrity intact Outcome: Goal Ongoing Encouraging weight shifting, self turns and ambulation. Criticaid applied to Sta [place] 1 on coccyx. Problem: Falls, High Risk of Goal: Absence of falls-Adult Patient Outcome: Goal Ongoing High fall risk bundle in place. Problem: Self-Care Deficit Goal: Maximize ADL functioning Outcome: Goal Ongoing PT/OT following. Problem: Nutrition Deficit Goal: Adequate nutritional intake Outcome: Goal Ongoing Tolerating regular diet. * Care Plan - Deidre Norton RN - 01/08/2019 12:36 PM CDT Problem: Discharge Planning Goal: Knowledge regarding plan of care Outcome: Goal Ongoing Pt knowledgeable on plan of care. Problem: Pain Goal: Management of pain Outcome: Goal Ongoing Ongoing pain assessments. Problem: Falls, High Risk of Goal: Absence of falls-Adult Patient Outcome: Goal Ongoing HFR bundle in place. * Case Mgmt DC Plan - Reyna Wayne - 01/08/2019 10:59 AM CDT Case Management Progress NoteNAME:Yun Booker MRN: [id number] :1945 AGE: 73 y.o. ADMISSION DATE: 01/01/2019 DAYS ADMITTED: LOS: 7 days Todays Date: 01/08/2019 Plan Pt transferred to CTS service on 01/07 for mechanical pleurodesis. Anticipate pt will remain inpt throughout the holiday weekend. Interventions ? Support ? Info or Referral ? Discharge Planning EMR and POC reviewed Case disused in huddle this am PT rec's currently for home- No current CM needs identified at this time. Should any CM needs arise over the holiday weekend, please contact the expander machine operator and ask for the geographic information scientist/on site RNCM or SWCM depending the need. ? Medication Needs ? Financial ? Legal ? Other Disposition ? Expected Discharge Date Expected Discharge Date: 01/12/19 Expected Discharge Time: 1200 ? Transportation Does the patient need discharge transport arranged?: Yes Transportation Name, Phone and Availability #1: Patient will call one of her chi ldren Does the patient use Medicaid Transportation?: No ? Discharge Disposition Home w assist. Reyna SEGUNDO, sales force developer Nurse Bevel Gear Generator Operator Inpatient Cardiothoracic Surgery [phone] O: [phone] * Care Plan - Kathy Randolph RN - 01/06/2019 2:24 AM CDT Problem: Pain Goal: Management of pain Outcome: Goal Ongoing Pt remains intubated and sedated as ordered to maintain oxygenation >92%. Problem: Respiratory Impairment (Non-Ventilated Patient) Goal: Effective gas exchange Outcome: Goal Ongoing Pt remains intubated and sedated as ordered to maintain oxygenation >92%. Problem: Tissue Perfusion, Altered Goal: Adequate tissue perfusion Outcome: Goal Ongoing Pt remains intubated and sedated as ordered to maintain oxygenation >92%. Problem: Skin Integrity Goal: Skin integrity intact Outcome: Goal Ongoing Skin remains clean dry and intact. Dressings changed as needed and per protocol. Problem: Falls, High Risk of Goal: Absence of falls-Adult Patient Outcome: Goal Ongoing Pt encouraged to utilize call light for help. Call light and items kept within r each of patient. Room placement close to nurses station for observation. Problem: Infection, Risk of, Urinary Catheter-Associated Urinary Tract Infection Goal: Absence of urinary catheter-associated infection Outcome: Goal Ongoing Pt educated on need for urinary catheter and signs and symptoms to report. Peric are with CHG completed per protocol and as needed to keep area clean and dry. Problem: Injury-Risk of, Non-Violent Physical Restraints Goal: Absence of Injury while physically restrained (Non-Violent) Outcome: Goal Ongoing Skin remains clean dry and intact. PROM as needed and per protocol. * Operative Report (DICTATED ONLY) - Alirio Cuevas MD - 01/05/2019 3:02 PM CDT [address] [address] PATIENT NAME: YUN BOOKER MR#/PT#: [id number] OPERATIVE REPORT : 1945 DATE OF OPERATION: 01/05/2019 ROOM #: HC310 OPERATIVE REPORT SURGEON: Alirio Cuevas MD BIOCHEMICAL DEVELOPMENT ENGINEER SURGEON(S): Cate Ramsey MD PREOPERATIVE DIAGNOSIS: Pneumothorax. POSTOPERATIVE DIAGNOSIS: Pneumothorax. OPERATIVE PROCEDURE: Right thoracoscopic exploration with mechanical pleurodesis. ANESTHESIA: GETA INDICATIONS FOR OPERATIVE PROCEDURE: This is a 73-year-old with significant emphysematous changes. The patient has h ad a pneumothorax for over a month with a chest tube in place. Her lung is part ially entrapped after 2 rounds of chemical pleurodesis. The patient was brought to the operating room and underwent pleurodesis. DESCRIPTION AND FINDINGS OF OPERATIVE PROCEDURE: After informed consent was obtained, the patient was brought to the operating ro om. She underwent general endotracheal anesthesia by our anesthesia colleagues. She received a dose of preoperative antibiotics as well as 5000 units of subcu taneous heparin prior to induction of anesthesia. She was positioned in the lat eral decubitus position with the right side up. She was prepped and draped in t he usual standard manner. Her existing chest tube was removed after lung isolation was achieved. A small incision was made in the 6th interspace between the anterior and midaxillary liv es. Using this single incision, we explored the patient's right chest. The pat ient had evidence of entrapped right lower lobe. There was some thin filmy mate rial all over the lobe, especially on the inferior aspect. Using a sponge stick , we were able to gently remove much of this peel from the lower lobe. The uppe r lobe was partially adhesed to the chest wall. These adhesions were left in pl joni. There were bullous emphysematous changes at the apex. Using a Bovie scratch pad, at this point we performed a generous mechanical remi alejandra of the entire surface of the chest wall as well as the diaphragm. We noted that, with inflation of the right lung as well as use of CPAP, the lower lobe w ould expand and the entire pleural space appeared to be filled on positive press ure. With the mechanical abrasion performed, two 24-Austrian chest tubes were antonio alejandro into the right chest, one along the diaphragm and one more cephalad. Dilute hydrogen peroxide solution was used to irrigate the chest, to control any bleed ing as well as to promote adhesions. Our single incision was then closed using Vicryl suture. The patient was kept intubated and taken to the ICU in stable co ndition. Sponge and instrument counts were correct. ESTIMATED BLOOD LOSS: Negligible. I was present for the entirety of this case. SPECIMENS REMOVED: as above Alirio Cuevas MD NV/Fredy Cuevas MD / Fredy [id number] cc: - Alirio Cuevas MD * Procedures (Immed Post or Bedside) - Colette Rodriguez APRN - 01/05/2019 2:28 PM CDT Procedure note: Placement of Left radial arterial line. Indication: Frequent ABG, invasive blood pressure monitoring. Procedure: After hand hygiene a hat mask and sterile gloves were donned. The LT wrist was prepped with CHG and allowed to dry. Using US the radial and ulnar arteries were identified. The radial artery was then cannulated using 2 attempts using an Ar row over the wire catheter. There was brisk bleed back of pulsatile blood. A B iopatch was placed and secured with a sterile dressing. The patient tolerated t he procedure well. * Procedures (Immed Post or Bedside) - Alirio Cuevas MD - 01/05/2019 11:21 AM CDT Brief Operative Note Name: Yun Booker is a 73 y.o. female : 1945 448 DATE OF OPERATION: 01/05/2019 Date: 01/05/2019 Preoperative Dx: Pneumothorax on right [J93.9] Post-op Diagnosis * Pneumothorax on right [J93.9] Procedure(s) (LRB): RIGHT VIDEO ASSISTED THORACOSCOPY WITH MECHANICAL PLEURODESIS (Right) THORACOTOMY WITH EXPLORATION, Anesthesia Type: Defer to Anesthesia Surgeon(s) and Role: * Alirio Cuevas MD - Primary * Cate Ramsey MD - Fellow Findings: vats mechanical pleurodesis Estimated Blood Loss: No blood loss documented. Specimen(s) Removed/Disposition: ID Type Source Tests Collected by Time Destination A : Pleural Peel - Culture Tissue Pleural Cavity CULTURE-ANAEROBIC, CULTURE-WOUN D/TISSUE/FLUID(AEROBIC ONLY)W/SENSITIVITY, CULTURE-TB (AFB), GRAM STAIN, CULTURE -FUNGAL,OTHER Alirio Cuevas MD 01/05/2019 1103 Complications: None Implants: None Drains: None 2 separate 24 khmer chest tubes Disposition: PACU - stable ALIRIO CUEVAS MD Pager * Care Coordination-Inpatient - Digna Pizarro MD - 01/03/2019 5:15 AM CDT MICU Team (Pager: [phone]) will take calls on this patient until 8 am on 2018. MICU to call [facility] team for check out at/after 8 am on 01/03/2019 BRYAN Hamilton # [phone] * Care Plan - Sara Hill RN - 01/03/2019 4:42 AM CDT Problem: Discharge Planning Goal: Participation in plan of care Outcome: Goal Ongoing Patient is participating in plan of care. Will continue to encourage further par ticipation. Barrier identified in shortness of air upon activity. Goal: Knowledge regarding plan of care Outcome: Goal Ongoing Patient has been educated on plan of care. Will continue to educate patient. Pat ient was educated on how to use incentive spirometry and encouraged to use 10x p er hour while awake. Patient verbalized understanding and denied any further que stions at this time. Goal: Prepared for discharge Outcome: Goal Ongoing Patient progressing towards discharge. Problem: Pain Goal: Management of pain Outcome: Goal Ongoing Patient denies pain at this time. Will continue to assess and treat pain as need ed. Problem: Respiratory Impairment (Non-Ventilated Patient) Goal: Effective gas exchange Outcome: Goal Ongoing Patient is demonstrating >94% SpO2 on 3L high flow NC. Patient's saturations drop after activity or ambulation. Patient currently has a right sided chest tube with an identified intermittent air leak that gets worse with deep breathing, coughing, and ambulation. Dressing has been reinforced. Increased output noted after transfer to floor (baseline drainage about 15mL every four hours). Chest tube output calculated and checked and marked properly in flowsheets. Will continue to collaborate with RT to help patient maintain adequate oxygenation and effective gas exchange. Problem: Tissue Perfusion, Altered Goal: Adequate tissue perfusion Outcome: Goal Ongoing Patient demonstrates adequate tissue perfusion at rest. Will monitor closely to accurately assess tissue perfusion. Problem: Skin Integrity Goal: Skin integrity intact Outcome: Goal Ongoing Patient skin integrity intact at this time. Small red area noted on coccyx (now blanchable). Patient has been educated to move while in bed whilst being mindful of her drains and lines. Will continue to monitor skin integrity with q12h skin checks per protocol. Problem: Falls, High Risk of Goal: Absence of falls-Adult Patient Outcome: Goal Ongoing Patient is a high fall risk secondary to AWAS, respiratory impairment, drains, a nd oxygen tubing. Patient educated on status as a fall risk and patient verbaliz es she is accepting of status and will call for help. Bed alarm active. Will con tinue to monitor closely to prevent falls. * Transfer - Carlos Enrique Maier APRN-BACK GRINDER - 01/02/2019 12:45 PM CDT In-Hospital Transfer Note Admission Diagnosis: Persistent pneumothorax Admission Date: 01/01/2019 Active Hospital Problem List: Active Problems: Acute respiratory failure with hypoxia (HCC) Bullous emphysema with collapse (HCC) Pneumothorax on right Hospital Course: 73 yo lady transferred from [facility] in [place], [place] for f urther mgmt of a persistent pneumothorax. About 5 weeks ago she presented to [facility] with acute chest pain, found a spontaneous right pneumothorax, thought to b e from a bullae rupture. A chest tube was placed and she received chemical pleu rodesis (per pt description) and a heimlich valve was placed on the CT and was d ischarged / with the tube in place. Since then she has continued to experienc e dyspnea, oxygen desaturations, 15lb weight loss. 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, ETOH use of 1 bottle of wine daily Significant Medication Information (to include antibiotic duration/indication, a nticoagulation and steroids, etc.): - CTS recommendations - on pulmonary consult list - no abx Consults: CTS, pulmonary Follow-Up Items: Recommendations Activity/Weight bearing status: PT/OT Nutrition: Regular Discharge Plan: home when ready ISAIAS Nguyen Pager [phone] * Advanced Care Planning/Resuscitation Status - Rubin Arteaga DO - 01/01/2019 6:44 PM CDT Advance Care Planning/Resuscitation Status Conversation Individuals present for advance care planning conversation: advanced practice pr ovider and patient Pertinent details of conversation (including direct quotes from patient or surro gate): Patient wants all life sustaining procedures including chest compressions , defibrillation, intubation with mechanical ventilation, pressors, and escalati on of care Outcome of conversation: Full Code Documents completed as a result of this conversation: None Other documents present, which outline patient/surrogate wishes: None documented in this encounter Plan of Treatment Date/Time Name Priority Associated Diagnoses 01/05/2019 11:03 AM CDT CULTURE-TB (AFB) STAT Pneumothorax on right 01/05/2019 11:03 AM CDT CULTURE-FUNGAL,OTHER STAT Pneumothorax on right Order Schedule Name Priority Associated Diagnoses ONE TIME for 1 Occurrences starting 01/03/2019 until 01/03/2019, 1 completed GENERAL RAD CHEST EXTERNAL IMAGING Routine Expected: 01/27/2019 (Approximate), Expires: 01/16/2020 CHEST 2 VIEWS Routine Pneumothorax on right Bullous emphysema with collapse (HCC) documented as of this encounter Procedures Comments Procedure Name Priority Date/Time Associated Diagnosis CHEST SINGLE VIEW Routine 01/16/2019 6:32 AM CDT CBC Routine 01/16/2019 4:20 AM CDT BASIC METABOLIC PANEL Routine 01/16/2019 4:20 AM CDT CHEST 2 VIEWS Routine 01/15/2019 11:10 AM CDT CHEST SINGLE VIEW Routine 01/15/2019 6:42 AM CDT CHEST SINGLE VIEW STAT 01/14/2019 2:11 PM CDT CHEST SINGLE VIEW Routine 01/14/2019 6:23 AM CDT CBC Routine 01/14/2019 4:17 AM CDT BASIC METABOLIC PANEL Routine 01/14/2019 4:17 AM CDT UA REFLEX CULTURE LABEL Routine 01/13/2019 11:50 PM CDT URINALYSIS MICROSCOPIC Routine 01/13/2019 REFLEX TO CULTURE 11:50 PM CDT URINALYSIS DIPSTICK Routine 01/13/2019 REFLEX TO CULTURE 11:50 PM CDT CULTURE-URINE 01/13/2019 W/SENSITIVITY 11:50 PM CDT CHEST SINGLE VIEW Routine 01/13/2019 6:27 AM CDT CHEST SINGLE VIEW Routine 01/12/2019 6:29 AM CDT CBC Routine 01/12/2019 3:59 AM CDT MAGNESIUM Routine 01/12/2019 3:59 AM CDT BASIC METABOLIC PANEL Routine 01/12/2019 3:59 AM CDT CHEST SINGLE VIEW Routine 01/11/2019 6:36 AM CDT CBC Routine 01/11/2019 5:03 AM CDT MAGNESIUM Routine 01/11/2019 5:03 AM CDT BASIC METABOLIC PANEL Routine 01/11/2019 5:[address] CHEST WO CONTRAST Routine 01/10/2019 10:03 AM CDT CHEST SINGLE VIEW Routine 01/10/2019 8:18 AM CDT CBC Routine 01/10/2019 4:57 AM CDT MAGNESIUM Routine 01/10/2019 4:57 AM CDT BASIC METABOLIC PANEL Routine 01/10/2019 4:57 AM CDT CHEST SINGLE VIEW STAT 01/09/2019 12:30 PM CDT CBC Routine 01/09/2019 4:19 AM CDT MAGNESIUM Routine 01/09/2019 4:19 AM CDT BASIC METABOLIC PANEL Routine 01/09/2019 4:19 AM CDT CHEST SINGLE VIEW Routine 01/08/2019 6:19 AM CDT CBC Routine 01/08/2019 4:20 AM CDT MAGNESIUM Routine 01/08/2019 4:20 AM CDT BASIC METABOLIC PANEL Routine 01/08/2019 4:20 AM CDT CHEST SINGLE VIEW Routine 01/07/2019 6:14 AM CDT CBC Routine 01/07/2019 3:46 AM CDT MAGNESIUM Routine 01/07/2019 3:46 AM CDT BASIC METABOLIC PANEL Routine 01/07/2019 3:46 AM CDT POC BLOOD GAS ARTERIAL 01/06/2019 9:33 AM CDT CHEST SINGLE VIEW Routine 01/06/2019 4:47 AM CDT CBC Routine 01/06/2019 2:15 AM CDT MAGNESIUM Routine 01/06/2019 2:15 AM CDT BLOOD GASES, ARTERIAL STAT 01/06/2019 2:15 AM CDT BASIC METABOLIC PANEL Routine 01/06/2019 2:15 AM CDT POC BLOOD GAS ARTERIAL 01/05/2019 6:48 PM CDT BLOOD GASES, ARTERIAL STAT 01/05/2019 4:15 PM CDT PTT (APTT) 01/05/2019 1:30 PM CDT PROTIME INR (PT) 01/05/2019 1:30 PM CDT CBC STAT 01/05/2019 1:30 PM CDT MAGNESIUM STAT 01/05/2019 1:30 PM CDT BLOOD GASES, ARTERIAL Routine 01/05/2019 1:30 PM CDT BASIC METABOLIC PANEL STAT 01/05/2019 1:30 PM CDT ABDOMEN AP ONLY STAT 01/05/2019 12:57 PM CDT ECG 12-LEAD STAT 01/05/2019 12:34 PM CDT CHEST SINGLE VIEW STAT 01/05/2019 12:20 PM CDT GRAM STAIN STAT 01/05/2019 Pneumothorax on right 11:03 AM CDT CULTURE-WOUND/TISSUE/FLUI STAT 01/05/2019 Pneumothorax on right D(AEROBIC 11:03 AM CDT ONLY)W/SENSITIVITY CULTURE-ANAEROBIC STAT 01/05/2019 Pneumothorax on right 11:03 AM CDT CHEST SINGLE VIEW Routine 01/05/2019 6:28 AM CDT CBC AND DIFF Routine 01/05/2019 5:31 AM CDT PHOSPHORUS Routine 01/05/2019 5:31 AM CDT MAGNESIUM Routine 01/05/2019 5:31 AM CDT COMPREHENSIVE METABOLIC Routine 01/05/2019 PANEL 5:31 AM CDT BLOOD TYPE CONFIRMATION - Specimen 01/04/2019 ORDER ONLY IF REQUESTED in Lab 2:55 PM CDT BY LAB TYPE & CROSSMATCH Routine 01/04/2019 1:46 PM CDT CHEST SINGLE VIEW Routine 01/04/2019 10:04 AM CDT CBC AND DIFF Routine 01/04/2019 5:09 AM CDT PHOSPHORUS Routine 01/04/2019 5:09 AM CDT MAGNESIUM Routine 01/04/2019 5:09 AM CDT COMPREHENSIVE METABOLIC Routine 01/04/2019 PANEL 5:09 AM CDT TSH WITH FREE T4 REFLEX Add on 01/03/2019 3:35 AM CDT CBC AND DIFF Routine 01/03/2019 3:35 AM CDT PHOSPHORUS Routine 01/03/2019 3:35 AM CDT MAGNESIUM Routine 01/03/2019 3:35 AM CDT VITAMIN B12 Add on 01/03/2019 3:35 AM CDT COMPREHENSIVE METABOLIC Routine 01/03/2019 PANEL 3:[address] CHEST W CONTRAST Routine 01/02/2019 10:56 AM CDT CHEST SINGLE VIEW DERRELL 01/02/2019 8:37 AM CDT CBC AND DIFF Routine 01/02/2019 3:17 AM CDT MAGNESIUM Routine 01/02/2019 3:17 AM CDT COMPREHENSIVE METABOLIC Routine 01/02/2019 PANEL 3:17 AM CDT TROPONIN-I STAT 01/01/2019 6:40 PM CDT CHEST SINGLE VIEW Routine 01/01/2019 5:05 PM CDT BLOOD GASES, ARTERIAL STAT 01/01/2019 5:00 PM CDT PROCALCITONIN Routine 01/01/2019 4:35 PM CDT BLOOD BANK SAMPLE HOLD 01/01/2019 4:35 PM CDT LACTIC ACID (BG - RAPID Routine 01/01/2019 LACTATE) 4:35 PM CDT TROPONIN-I STAT 01/01/2019 4:35 PM CDT PTT (APTT) Routine 01/01/2019 4:35 PM CDT PROTIME INR (PT) Routine 01/01/2019 4:35 PM CDT CBC AND DIFF Routine 01/01/2019 4:35 PM CDT PHOSPHORUS Routine 01/01/2019 4:35 PM CDT BNP (B-TYPE NATRIURETIC Routine 01/01/2019 PEPTI) 4:35 PM CDT MAGNESIUM Routine 01/01/2019 4:35 PM CDT COMPREHENSIVE METABOLIC Routine 01/01/2019 PANEL 4:35 PM CDT ECG 12-LEAD STAT 01/01/2019 [...] AM CDT ECG-SCAN 01/01/2019 12:00 AM CDT ECG-SCAN 01/01/2019 12:00 AM CDT CONSULT IV THERAPY TEAM Routine 01/01/2019 12:00 AM CDT documented in this encounter Results * CHEST SINGLE VIEW (01/16/2019 6:32 AM CDT) Impressions Performed At 1.Tubes and lines as [...] on 01/16/2019 10:45 AM. Performing Organization Address City/State/Zipcode Phone Number [facility] RES[facility] * BASIC METABOLIC PANEL (01/16/2019 4:20 AM CDT) Sodium 138 137 - 147 MMOL/L [facility] [...] >60 >60 mL/min [facility] Comment: [place] The eGFR is not validated for use in drug dosing adjustments.Continue to use estimated creatinine clearance per dosing reference text.Please contact the Clinical Pharmacist for questions. eGFR >60 >60 mL/min [facility] [place] Comment: The eGFR is not validated for use in drug dosing adjustments.Continue to use estimated creatinine clearance per dosing reference text.Please contact the Clinical Pharmacist for questions. Specimen Blood Performing Organization Address City/[facility] [address]/Zipcode Phone Number [facility] [address] [phone] * CBC (01/16/2019 4:20 AM CDT) White Blood 5.5 4.5 - 11.0 K/UL [...] MAIN LAB Specimen Blood Performing Organization Address City/[facility] [address]/Zipcode Phone Number [facility] [address] [phone] * CHEST 2 VIEWS (01/15/2019 11:10 AM [...] on 01/15/2019 11:16 AM. Performing Organization Address City/State/Zipcode Phone Number [facility] RESULTS * CHEST SINGLE VIEW (01/15/2019 6:42 AM CDT) Impressions Performed At 1. Similar multiloculated right hydropneumothorax with apical and basal [facility] RES[facility] components and chest tubes in place. 2. Increasing interstitial opacities which could be projectional or developing edema or infection. 3. Similar left upper lobe volume loss and apical cap. Finalized by Biju Ewing M.D. on 01/15/2019 9:45 AM. Dictated by Biju Ewing M.D. on 01/15/2019 9:44 AM. Narrative Performed At CHEST SINGLE VIEW [facility] INDICATION: s/p right pleurodesis COMPARISON STUDY: January 14, 2019. FINDINGS: Life Support Devices: The life support devices are stable. Lungs: The lung volume is normal. Patchy bilateral opacities greatest in the right upper and left lower lung zones. Similar left upper lobe volume loss with apical cap. Increasing interstitial opacities. Pleura: Stable multiloculated right hydropneumothorax. Small left pleural effusion persists. Heart and Mediastinum: Similar leftward shift of the heart and mediastinal structures. Procedure Note Interface, Radiant Results - 01/15/2019 9:48 AM CDT CHEST SINGLE VIEW INDICATION: s/p right pleurodesis COMPARISON STUDY: January 14, 2019. FINDINGS: Life Support Devices: The life support devices are stable. Lungs: The lung volume is normal. Patchy bilateral opacities greatest in the right upper and left lower lung zones. Similar left upper lobe volume loss with apical cap. Increasing interstitial opacities. Pleura: Stable multiloculated right hydropneumothorax. Small left pleural effusion persists. Heart and Mediastinum: Similar leftward shift of the heart and mediastinal structures. IMPRESSION 1. Similar multiloculated right hydropneumothorax with apical and basal components and chest tubes in place. 2. Increasing interstitial opacities which could be projectional or developing edema or infection. 3. Similar left upper lobe volume loss and apical cap. Finalized by Biju Ewing M.D. on 01/15/2019 9:45 AM. Dictated by Biju Ewing M.D. on 01/15/2019 9:44 AM. Performing Organization Address City/State/Zipcode Phone Number [facility] RESULTS * CHEST SINGLE VIEW (01/14/2019 2:11 PM CDT) Impressions Performed At 1. Slight increase in multiloculated right hydropneumothorax with apical and [facility] basal components. Chest tubes remain in place. 2. Unchanged patchy right upper and left basal consolidation. 3. Similar left upper lobe volume loss, architectural distortion and apical cap. Finalized by Biju Ewing M.D. on 01/14/2019 2:20 PM. Dictated by Biju Ewing M.D. on 01/14/2019 2:18 PM. Narrative Performed At CHEST SINGLE VIEW [facility] INDICATION: decreased oxygen saturation on 4 lpm, eval chest tubes COMPARISON STUDY: January 14, 2019. FINDINGS: Life Support Devices: The life support devices are stable. Lungs: The lung volume is normal. Unchanged patchy right upper and left basal consolidation. Similar left upper lobe volume loss, architectural distortion and apical cap. Pleura: Slight increase in loculated right hydropneumothorax with apical and basal components. Heart and Mediastinum: Stable leftward shift of the heart and mediastinal structures. Procedure Note Interface, Radiant Results - 01/14/2019 2:23 PM CDT CHEST SINGLE VIEW INDICATION: decreased oxygen saturation on 4 lpm, eval chest tubes COMPARISON STUDY: January 14, 2019. FINDINGS: Life Support Devices: The life support devices are stable. Lungs: The lung volume is normal. Unchanged patchy right upper and left basal consolidation. Similar left upper lobe volume loss, architectural distortion and apical cap. Pleura: Slight increase in loculated right hydropneumothorax with apical and basal components. Heart and Mediastinum: Stable leftward shift of the heart and mediastinal structures. IMPRESSION 1. Slight increase in multiloculated right hydropneumothorax with apical and basal components. Chest tubes remain in place. 2. Unchanged patchy right upper and left basal consolidation. 3. Similar left upper lobe volume loss, architectural distortion and apical cap. Finalized by Biju Ewing M.D. on 01/14/2019 2:20 PM. Dictated by Biju Ewing M.D. on 01/14/2019 2:18 PM. Performing Organization Address City/State/[facility] Phone Number [facility] * CHEST SINGLE VIEW (01/14/2019 6:23 AM CDT) Impressions Performed At 1. Stable loculated right apical hydropneumothorax with chest tubes in place. [facility] RES[facility] 2. Similar patchy bilateral opacities, left upper lobe volume loss and apical cap. Finalized by Biju Ewing M.D. on 01/14/2019 12:49 PM. Dictated by Biju Ewing M.D. on 01/14/2019 12:48 PM. Narrative Performed At CHEST SINGLE VIEW [facility] INDICATION: s/p right pleurodesis COMPARISON STUDY: January 13, 2019. FINDINGS: Life Support Devices: The life support devices are stable. Lungs: The lung volume is normal. Unchanged patchy right upper and left basal opacities. Similar left upper lobe volume loss with apical cap. Pleura: Stable loculated right hydropneumothorax. Small left pleural effusion. Heart and Mediastinum: The cardiomediastinal silhouette and great vessels are stable. Procedure Note Interface, Radiant Results - 01/14/2019 12:52 PM CDT CHEST SINGLE VIEW INDICATION: s/p right pleurodesis COMPARISON STUDY: January 13, 2019. FINDINGS: Life Support Devices: The life support devices are stable. Lungs: The lung volume is normal. Unchanged patchy right upper and left basal opacities. Similar left upper lobe volume loss with apical cap. Pleura: Stable loculated right hydropneumothorax. Small left pleural effusion. Heart and Mediastinum: The cardiomediastinal silhouette and great vessels are stable. IMPRESSION 1. Stable loculated right apical hydropneumothorax with chest tubes in place. 2. Similar patchy bilateral opacities, left upper lobe volume loss and apical cap. Finalized by Biju Ewing M.D. on 01/14/2019 12:49 PM. Dictated by Biju Ewing M.D. on 01/14/2019 12:48 PM. Performing Organization Address City/[facility] [address]/Zipcode Phone Number [facility] RESULTS * BASIC METABOLIC PANEL (01/14/2019 4:17 AM CDT) Sodium 136 (L) 137 - 147 MMOL/L [facility] Potassium 4.4 3.5 - 5.1 MMOL/L [facility] Chloride 100 98 - 110 MMOL/L [facility] CO2 31 (H) 21 - 30 MMOL/L [facility] Anion Gap 5 3 - 12 [facility] Glucose 108 (H) 70 - 100 MG/DL [facility] Blood Urea 6 (L) 7 - 25 MG/DL [facility] Nitrogen Creatinine 0.38 (L) 0.4 - 1.00 MG/DL [facility] Calcium 8.7 8.5 - 10.6 MG/DL [facility] eGFR Non >60 >60 mL/min [facility] Comment: [place] The eGFR is not validated for use in drug dosing adjustments.Continue to use estimated creatinine clearance per dosing reference text.Please contact the Clinical Pharmacist for questions. eGFR >60 >60 mL/min [facility] [place] Comment: The eGFR is not validated for use in drug dosing adjustments.Continue to use estimated creatinine clearance per dosing reference text.Please contact the Clinical Pharmacist for questions. Specimen Blood Performing Organization Address City/[facility] [address]/Zipcode Phone Number [facility] [address] [place] [address] * CBC (01/14/2019 4:17 AM CDT) White Blood 9.1 4.5 - 11.0 K/UL [facility] Cells RBC 3.30 (L) 4.0 - 5.0 M/UL MAIN LAB Hemoglobin 11.0 (L) 12.0 - 15.0 GM/DL [facility] Hematocrit 33.6 (L) 36 - 45 % [facility] MCV 101.8 (H) 80 - 100 [place] MAIN LAB MCH 33.3 26 - 34 PG MAIN LAB MCHC 32.7 32.0 - 36.0 G/DL [facility] RDW 14.0 11 - 15 % [facility] Platelet Count 412 (H) 150 - 400 K/UL [facility] MPV 6.9 (L) 7 - 11 [place] MAIN LAB Specimen Blood Performing Organization Address City/[facility] [address]/[facility] Phone Number [facility] [address] [place] [address] * CULTURE-URINE W/SENSITIVITY (01/13/2019 11:50 PM CDT) Battery Name URINE CULTURE MAIN LAB Specimen URINE MAIN LAB Description Special NONE MAIN LAB Requests Culture >100,000 organisms/ml [facility] PSEUDOMONAS AERUGINOSA (A) Report Status FINAL [facility] 01/16/2019 Organism ID >100,000 organisms/ml [facility] PSEUDOMONAS AERUGINOSA Specimen Urine Antibiotic Method [...] >100,000 organisms/ml pseudomonas aeruginosa Performing Organization Address City/[facility] [address]/[facility] Phone Number [facility] [address] [place] [address] * UA REFLEX CULTURE LABEL (01/13/2019 11:50 PM CDT) UA Reflex LAB LABEL [facility] Culture Specimen Urine Performing Organization Address [facility] [address]/[facility] Phone Number [facility] [address] [place] [address] * URINALYSIS MICROSCOPIC REFLEX TO CULTURE (01/13/2019 [...] MAIN LAB Specimen Urine Performing Organization Address [facility] Phone Number [facility] [address] [place] [address] * URINALYSIS DIPSTICK REFLEX TO CULTURE (01/13/2019 11:50 PM CDT) Color,UA YELLOW [facility] Turbidity,UA CLEAR CLEAR-CLEAR [facility] Specific 1.008 1.003 - 1.035 [facility] [place]-Urine pH,UA 7.0 5.0 - 8.0 [facility] Protein,UA NEG NEG-NEG [facility] Glucose,UA NEG NEG-NEG [facility] Ketones,UA NEG NEG-NEG [facility] Bilirubin,UA NEG NEG-NEG [facility] Blood,UA 1+ (A) NEG-NEG [facility] Urobilinogen,UA NORMAL NORM-NORMAL [facility] Nitrite,UA POS (A) NEG-NEG [facility] Leukocytes,UA 3+ (A) NEG-NEG [facility] Urine Ascorbic NEG NEG-NEG [facility] Acid, UA Specimen Urine Performing Organization Address [facility] [address]/[facility] Cent[facility]ode Phone Number [facility] [address] [place] [address] * CHEST SINGLE VIEW (01/13/2019 6:27 AM CDT) Impressions Performed At 1.Unchanged loculated right hydropneumothorax. [facility] RES[facility] 2.No significant change in left upper lobe consolidation volume loss with small left pleural effusion. Approved by Edwardo Shepherd M.D. on 01/13/2019 10:17 AM By my electronic signature, I attest that I have personally reviewed the images for this examination and formulated the interpretations and opinions expressed in this report Finalized by Humza Hilliard M.D. on 01/13/2019 11:17 AM. Dictated by Edwardo Shepherd M.D. on 01/13/2019 9:24 AM. Narrative Performed At CHEST SINGLE VIEW [facility] RESULTS Clinical Indication: Female, 73 years old. Status post right pleurodesis Comparison: Chest radiograph from previous day Findings: 2 right thoracostomy tubes remain in place. The cardiomediastinal silhouette is stable. There is no pulmonary vascular congestion. Small loculated right hydropneumothorax unchanged. No significant change in consolidation and volume loss within the left upper lobe and small left pleural effusion. No pneumothorax. Procedure Note Interface, Radiant Results - 01/13/2019 11:20 AM CDT CHEST SINGLE VIEW Clinical Indication: Female, 73 years old. Status post right pleurodesis Comparison: Chest radiograph from previous day Findings: 2 right thoracostomy tubes remain in place. The cardiomediastinal silhouette is stable. There is no pulmonary vascular congestion. Small loculated right hydropneumothorax unchanged. No significant change in consolidation and volume loss within the left upper lobe and small left pleural effusion. No pneumothorax. IMPRESSION 1. Unchanged loculated right hydropneumothorax. 2. No significant change in left upper lobe consolidation volume loss with small left pleural effusion. Approved by Edwardo Shepherd M.D. on 01/13/2019 10:17 AM By my electronic signature, I attest that I have personally reviewed the images for this examination and formulated the interpretations and opinions expressed in this report Finalized by Humza Hilliard M.D. on 01/13/2019 11:17 AM. Dictated by Edwardo Shepherd M.D. on 01/13/2019 9:24 AM. Performing Organization Address City/State/Zipcode Phone Number [facility] RESULTS * CHEST SINGLE VIEW (01/12/2019 6:29 AM CDT) Impressions Performed At Stable appearance of the chest, with a small right hydropneumothorax and 2 right [facility] RESULTS thoracostomy tubes. Stable left upper lobe consolidation and volume loss, and small left pleural effusion. Finalized by LAVON GOODMAN M.D. on 01/12/2019 11:03 AM. Dictated by LAVON GOODMAN M.D. on 01/12/2019 11:01 AM. Narrative Performed At CHEST SINGLE VIEW [facility] RESULTS Clinical history: s/p right pleurodesis. Comparison: Chest radiograph of one day earlier Findings: The heart size and pulmonary vascularity are within normal limits. Two right thoracostomy tubes remain in place. A small, loculated right hydropneumothorax is not significantly changed. There is stable consolidation and volume loss within the left upper lobe. A small left pleural effusion appears unchanged. Procedure Note Interface, Radiant Results - 01/12/2019 11:06 AM CDT CHEST SINGLE VIEW Clinical history: s/p right pleurodesis. Comparison: Chest radiograph of one day earlier Findings: The heart size and pulmonary vascularity are within normal limits. Two right thoracostomy tubes remain in place. A small, loculated right hydropneumothorax is not significantly changed. There is stable consolidation and volume loss within the left upper lobe. A small left pleural effusion appears unchanged. IMPRESSION Stable appearance of the chest, with a small right hydropneumothorax and 2 right thoracostomy tubes. Stable left upper lobe consolidation and volume loss, and small left pleural effusion. Finalized by LAVON GOODMAN M.D. on 01/12/2019 11:03 AM. Dictated by LAVON GOODMAN M.D. on 01/12/2019 11:01 AM. Performing Organization Address City/State/Zipcode Phone Number [facility] RESULTS * MAGNESIUM (01/12/2019 3:59 AM CDT) Magnesium 1.8 1.6 - 2.6 mg/dL [facility] Specimen Blood Performing Organization Address City/State/Zipcode Phone Number [facility] [address] [place] [address] * CBC (01/12/2019 3:59 AM CDT) White Blood 5.7 4.5 - 11.0 K/UL [facility] Cells RBC 3.33 (L) 4.0 - 5.0 M/UL [facility] Hemoglobin 11.3 (L) 12.0 - 15.0 GM/DL [facility] Hematocrit 33.9 (L) 36 - 45 % [facility] MCV 101.7 (H) 80 - 100 FL [facility] MCH 33.8 26 - 34 PG [facility] MCHC 33.3 32.0 - 36.0 G/DL [facility] RDW 13.6 11 - 15 % [facility] Platelet Count 369 150 - 400 K/UL [facility] MPV 7.0 7 - 11 FL [facility] Performing Organization Address [facility] [address]/[facility] Cent[facility]ode Phone Number [facility] [address] [phone] * BASIC METABOLIC PANEL (01/12/2019 3:59 AM CDT) Sodium 137 137 - 147 MMOL/L [facility] Potassium 4.2 3.5 - 5.1 MMOL/L [facility] Chloride 102 98 - 110 MMOL/L [facility] CO2 30 21 - 30 MMOL/L [facility] Anion Gap 5 3 - 12 [facility] Glucose 112 (H) 70 - 100 MG/DL [facility] Blood Urea 6 (L) 7 - 25 MG/DL [facility] Nitrogen Creatinine 0.35 (L) 0.4 - 1.00 MG/DL [facility] Calcium 8.8 8.5 - 10.6 MG/DL [facility] eGFR Non >60 >60 mL/min [facility] Comment: [place] The eGFR is not validated for use in drug dosing adjustments.Continue to use estimated creatinine clearance per dosing reference text.Please contact the Clinical Pharmacist for questions. eGFR >60 >60 mL/min [facility] [place] Comment: The eGFR is not validated for use in drug dosing adjustments.Continue to use estimated creatinine clearance per dosing reference text.Please contact the Clinical Pharmacist for questions. Performing Organization Address City/[facility] [address]/[facility] Phone Number [facility] [address] [place] [address] * CHEST SINGLE VIEW (01/11/2019 6:36 AM CDT) Impressions Performed At 1. No significant change in small right hydropneumothorax with chest tubes [facility] RESULTS remaining in place. 2. No significant change in small left pleural effusion with left basilar consolidation and consolidation and volume loss in the left lung apex. By my electronic signature, I attest that I have personally reviewed the images for this examination and formulated the interpretations and opinions expressed in this report Finalized by Jaime Liu M.D. on 01/11/2019 10:03 AM. Dictated by López Holland M.D. on 01/11/2019 9:58 AM. Narrative Performed At CHEST SINGLE VIEW [facility] RESULTS Indication: Female, 73 years old, s/p right pleurodesis Comparison: January 10, 2019 FINDINGS: 2 right chest tubes remain in place. Normal size heart without pulmonary venous congestion.No significant change in small loculated right hydropneumothorax. Persistent consolidation and volume loss in the left lung apex. Stable small left pleural effusion with left basilar consolidation. Emphysema and scattered parenchymal scarring. Procedure Note Interface, Radiant Results - 01/11/2019 10:06 AM CDT CHEST SINGLE VIEW Indication: Female, 73 years old, s/p right pleurodesis Comparison: January 10, 2019 FINDINGS: 2 right chest tubes remain in place. Normal size heart without pulmonary venous congestion. No significant change in small loculated right hydropneumothorax. Persistent consolidation and volume loss in the left lung apex. Stable small left pleural effusion with left basilar consolidation. Emphysema and scattered parenchymal scarring. IMPRESSION 1. No significant change in small right hydropneumothorax with chest tubes remaining in place. 2. No significant change in small left pleural effusion with left basilar consolidation and consolidation and volume loss in the left lung apex. By my electronic signature, I attest that I have personally reviewed the images for this examination and formulated the interpretations and opinions expressed in this report Finalized by Jaime Liu M.D. on 01/11/2019 10:03 AM. Dictated by López Holland M.D. on 01/11/2019 9:58 AM. Performing Organization Address City/State/Zipcode Phone Number [facility] RESULTS * MAGNESIUM (01/11/2019 5:03 AM CDT) Magnesium 1.8 1.6 - 2.6 mg/dL [facility] Specimen Blood Performing Organization Address City/State/Zipcode Phone Number [facility] [address] [place] [address] * CBC (01/11/2019 5:03 AM CDT) White Blood 6.3 4.5 - 11.0 K/UL [facility] LAB Cells RBC 3.48 (L) 4.0 - 5.0 M/UL [facility] Hemoglobin 11.8 (L) 12.0 - 15.0 GM/DL [facility] Hematocrit 35.0 (L) 36 - 45 % [facility] MCV 100.7 (H) 80 - 100 FL [facility] MCH 33.9 26 - 34 PG [facility] MCHC 33.7 32.0 - 36.0 G/DL [facility] RDW 13.3 11 - 15 % [facility] Platelet Count 388 150 - 400 K/UL [facility] MPV 6.7 (L) 7 - 11 FL [facility] Performing Organization Address City/[facility] [address]/Zipcode Phone Number MAIN LAB [address] [place] [address] * BASIC METABOLIC PANEL (01/11/2019 5:03 AM CDT) [facility] Sodium 134 (L) 137 - 147 MMOL/L [facility] Potassium 4.1 3.5 - 5.1 MMOL/L [facility] Chloride 100 98 - 110 MMOL/L [facility] CO2 30 21 - 30 MMOL/L [facility] Anion Gap 4 3 - 12 [facility] Glucose 102 (H) 70 - 100 MG/DL [facility] Blood Urea 6 (L) 7 - 25 MG/DL [facility] Nitrogen Creatinine 0.36 (L) 0.4 - 1.00 MG/DL [facility] Calcium 8.9 8.5 - 10.6 MG/DL [facility] eGFR Non >60 >60 mL/min [facility] Comment: [place] The eGFR is not validated for use in drug dosing adjustments.Continue to use estimated creatinine clearance per dosing reference text.Please contact the Clinical Pharmacist for questions. eGFR >60 >60 mL/min [facility] [place] Comment: The eGFR is not validated for use in drug dosing adjustments.Continue to use estimated creatinine clearance per dosing reference text.Please contact the Clinical Pharmacist for questions. Performing Organization Address City/[facility] [address]/Zipcode Phone Number [facility] [address] [place] [address] * CT CHEST WO CONTRAST (01/10/2019 10:03 [...] City/State/Zipcode Phone Number [facility] RAD RESULTS * CHEST SINGLE VIEW (01/10/2019 8:18 AM CDT) Impressions Performed At 1.No significant interval change in appearance of the chest with unchanged [facility] RAD RESULTS small right hydropneumothorax. 2.No significant change in small left pleural effusion with adjacent consolidation, likely reflecting atelectasis and/or pneumonia. 3.Unchanged left apical consolidation. By my electronic signature, I attest that I have personally reviewed the images for this examination and formulated the interpretations and opinions expressed in this report Finalized by Jaime Liu M.D. on 01/10/2019 10:24 AM. Dictated by Vineet Rodrigez MD on 01/10/2019 10:17 AM. Narrative Performed At EXAMINATION: CHEST SINGLE VIEW [facility] RAD RESULTS INDICATION:s/p right pleurodesis. Pneumothorax on the right. Acute respiratory failure with hypoxia. COMPARISON: Chest radiograph, 01/09/2019. FINDINGS: Redemonstration of 2 indwelling right thoracostomy tubes, unchanged in appearance. The small loculated right hydropneumothorax is unchanged in size and appearance. Unchanged appearance of left apical consolidation. Unchanged left basilar consolidation and small left pleural effusion. The osseous structures are unremarkable in appearance. Procedure Note Interface, Radiant Results - 01/10/2019 10:27 AM CDT EXAMINATION: CHEST SINGLE VIEW INDICATION:s/p right pleurodesis. Pneumothorax on the right. Acute respiratory failure with hypoxia. COMPARISON: Chest radiograph, 01/09/2019. FINDINGS: Redemonstration of 2 indwelling right thoracostomy tubes, unchanged in appearance. The small loculated right hydropneumothorax is unchanged in size and appearance. Unchanged appearance of left apical consolidation. Unchanged left basilar consolidation and small left pleural effusion. The osseous structures are unremarkable in appearance. IMPRESSION 1. No significant interval change in appearance of the chest with unchanged small right hydropneumothorax. 2. No significant change in small left pleural effusion with adjacent consolidation, likely reflecting atelectasis and/or pneumonia. 3. Unchanged left apical consolidation. By my electronic signature, I attest that I have personally reviewed the images for this examination and formulated the interpretations and opinions expressed in this report Finalized by Jaime Liu M.D. on 01/10/2019 10:24 AM. Dictated by Vineet Rodrigez MD on 01/10/2019 10:17 AM. Performing Organization Address [facility] [address]/Zipcode Phone Number RAD RESULTS * MAGNESIUM (01/10/2019 4:57 AM CDT) Pathologist [facility] Magnesium 1.8 1.6 - 2.6 mg/dL MAIN LAB Specimen Blood Performing Organization Address [facility] [address]/Zipcode Phone Number MAIN LAB [address] [place] [address] * CBC (01/10/2019 4:57 AM CDT) Pathologist [facility] White Blood 5.1 4.5 - 11.0 K/UL MAIN LAB Cells RBC 3.36 (L) 4.0 - 5.0 M/UL [facility] Hemoglobin 11.1 (L) 12.0 - 15.0 GM/DL [facility] Hematocrit 33.8 (L) 36 - 45 % [facility] MCV 100.7 (H) 80 - 100 FL [facility]IN [facility] MCH 33.2 26 - 34 PG [facility] MCHC 33.0 32.0 - 36.0 G/DL [facility] MAIN LAB RDW 13.3 11 - 15 % [facility] Platelet Count 334 150 - 400 K/UL [facility] MPV 6.6 (L) 7 - 11 FL [facility] MAIN LAB Performing Organization Address City/[facility] [address]/Zipcode Phone Number MAIN LAB [address] [place] [phone] * BASIC METABOLIC PANEL (01/10/2019 4:57 AM CDT) Sodium 137 137 - 147 MMOL/L [facility]IN [facility] Potassium 3.8 3.5 - 5.1 MMOL/L [facility] Chloride 101 98 - 110 MMOL/L [facility] CO2 28 21 - 30 MMOL/L [facility] Anion Gap 8 3 - 12 [facility] Glucose 108 (H) 70 - 100 MG/DL [facility] Blood Urea 6 (L) 7 - 25 MG/DL [facility] Nitrogen Creatinine 0.40 0.4 - 1.00 MG/DL [facility] Calcium 8.6 8.5 - 10.6 MG/DL [facility] eGFR Non >60 >60 mL/min [facility] Comment: [place] The eGFR is not validated for use in drug dosing adjustments.Continue to use estimated creatinine clearance per dosing reference text.Please contact the Clinical Pharmacist for questions. eGFR >60 >60 mL/min [facility] [place] Comment: The eGFR is not validated for use in drug dosing adjustments.Continue to use estimated creatinine clearance per dosing reference text.Please contact the Clinical Pharmacist for questions. Performing Organization Address City/[facility] [address]/[facility] Phone Number [facility] LAB [address] [place] [phone] * CHEST SINGLE VIEW (01/09/2019 12:30 PM CDT) Impressions Performed At 1.Indwelling right thoracostomy tubes with no significant change in [facility] RAD RESULTS loculated right hydropneumothorax. 2.No significant change in small left pleural effusion with adjacent consolidation, which may reflect atelectasis and/or pneumonia. 3.Unchanged left apical consolidation. By my electronic signature, I attest that I have personally reviewed the images for this examination and formulated the interpretations and opinions expressed in this report Finalized by Jaime Liu M.D. on 01/10/2019 8:41 AM. Dictated by Edwardo Shepherd M.D. on 01/10/2019 8:35 AM. Narrative Performed At CHEST SINGLE VIEW [facility] RAD RESULTS Clinical Indication: Female, 73 years old. Right hydropneumothorax; Air leaks at chest tubes Comparison: Chest radiograph from previous day Findings: Redemonstration of 2 indwelling right thoracostomy tubes. The cardiomediastinal silhouette is unchanged. There is no pulmonary vascular congestion. No significant change in left apical consolidation. Small loculated right hydropneumothorax is unchanged. Small left pleural effusion with adjacent consolidation. Procedure Note Interface, Radiant Results - 01/10/2019 8:44 AM CDT CHEST SINGLE VIEW Clinical Indication: Female, 73 years old. Right hydropneumothorax; Air leaks at chest tubes Comparison: Chest radiograph from previous day Findings: Redemonstration of 2 indwelling right thoracostomy tubes. The cardiomediastinal silhouette is unchanged. There is no pulmonary vascular congestion. No significant change in left apical consolidation. Small loculated right hydropneumothorax is unchanged. Small left pleural effusion with adjacent consolidation. IMPRESSION 1. Indwelling right thoracostomy tubes with no significant change in loculated right hydropneumothorax. 2. No significant change in small left pleural effusion with adjacent consolidation, which may reflect atelectasis and/or pneumonia. 3. Unchanged left apical consolidation. By my electronic signature, I attest that I have personally reviewed the images for this examination and formulated the interpretations and opinions expressed in this report Finalized by Jaime Liu M.D. on 01/10/2019 8:41 AM. Dictated by Edwardo Shepherd M.D. on 01/10/2019 8:35 AM. Performing Organization Address City/State/Zipcode Phone Number [facility] RAD RESULTS * MAGNESIUM (01/09/2019 4:19 AM CDT) Magnesium 1.9 1.6 - 2.6 mg/dL [facility] MAIN LAB Specimen Blood Performing Organization Address City/[facility] [address]/Zipcode Phone Number MAIN LAB [address] [place] [address] * CBC (01/09/2019 4:19 AM CDT) White Blood 4.3 (L) 4.5 - 11.0 K/UL [facility] MAIN LAB Cells RBC 3.32 (L) 4.0 - 5.0 M/UL [facility] Hemoglobin 11.1 (L) 12.0 - 15.0 GM/DL [facility] Hematocrit 33.6 (L) 36 - 45 % [facility]IN [facility] MCV 101.1 (H) 80 - 100 FL [facility] MCH 33.6 26 - 34 PG [facility] MCHC 33.2 32.0 - 36.0 G/DL [facility] MAIN [facility] RDW 13.7 11 - 15 % [facility] Platelet Count 318 150 - 400 K/UL [facility] MPV 7.1 7 - 11 FL MAIN LAB Performing Organization Address City/[facility] [address]/[facility] Phone Number [facility] [address] [place] [address] * BASIC METABOLIC PANEL (01/09/2019 4:19 AM CDT) Pathologist [facility] Sodium 135 (L) 137 - 147 MMOL/L [facility] Potassium 4.7 3.5 - 5.1 MMOL/L [facility] Chloride 101 98 - 110 MMOL/L [facility] CO2 31 (H) 21 - 30 MMOL/L [facility] Anion Gap 3 3 - 12 [facility] Glucose 92 70 - 100 MG/DL [facility] Blood Urea 8 7 - 25 MG/DL [facility] Nitrogen Creatinine 0.37 (L) 0.4 - 1.00 MG/DL [facility] Calcium 8.5 8.5 - 10.6 MG/DL [facility]IN [facility] eGFR Non >60 >60 mL/min [facility] Comment: [place] The eGFR is not validated for use in drug dosing adjustments.Continue to use estimated creatinine clearance per dosing reference text.Please contact the Clinical Pharmacist for questions. eGFR >60 >60 mL/min [facility] [place] Comment: The eGFR is not validated for use in drug dosing adjustments.Continue to use estimated creatinine clearance per dosing reference text.Please contact the Clinical Pharmacist for questions. Performing Organization Address City/[facility] [address]/Zipcode Phone Number [facility] [address] [place] [address] * CHEST SINGLE VIEW (01/08/2019 6:19 AM CDT) Impressions Performed At Stable chest radiograph demonstrating mixed, primarily alveolar opacities in the [facility] RAD RESULTS left lower lobe which may reflect pneumonia on the basis of aspiration or infection. Loculated right apical hydropneumothorax with [address]. Bilateral upper lobe pleural parenchymal scarring with a markedly asymmetric left apical pleural cap, unchanged from the prior study. Finalized by Humza Hilliard M.D. on 01/08/2019 11:49 AM. Dictated by Humza Hilliard M.D. on 01/08/2019 11:48 AM. Narrative Performed At CHEST SINGLE VIEW [facility] RAD RESULTS History: atelectasis. Technique: Single portable AP upright view of the chest was obtained. Comparison: Comparison is made to an examination of the previous day. Findings: Extensive asymmetric biapical pleural parenchymal scarring is again identified. 2. Right thoracostomy tubes remain in place. Small loculated right apical hydropneumothorax persists. Patchy opacities in the left lower lobe are again identified. Since the prior day's study there has been no significant interval change. Procedure Note Interface, Radiant Results - 01/08/2019 11:53 AM CDT CHEST SINGLE VIEW History: atelectasis. Technique: Single portable AP upright view of the chest was obtained. Comparison: Comparison is made to an examination of the previous day. Findings: Extensive asymmetric biapical pleural parenchymal scarring is again identified. 2. Right thoracostomy tubes remain in place. Small loculated right apical hydropneumothorax persists. Patchy opacities in the left lower lobe are again identified. Since the prior day's study there has been no significant interval change. IMPRESSION Stable chest radiograph demonstrating mixed, primarily alveolar opacities in the left lower lobe which may reflect pneumonia on the basis of aspiration or infection. Loculated right apical hydropneumothorax with [address] Bilateral upper lobe pleural parenchymal scarring with a markedly asymmetric left apical pleural cap, unchanged from the prior study. Finalized by Humza Hilliard M.D. on 01/08/2019 11:49 AM. Dictated by Humza Hilliard M.D. on 01/08/2019 11:48 AM. Performing Organization Address City/State/Zipcode Phone Number RAD RESULTS * MAGNESIUM (01/08/2019 4:20 AM CDT) Magnesium 1.9 1.6 - 2.6 mg/dL [facility] MAIN LAB Specimen Blood Performing Organization Address City/State/Zipcode Phone Number [facility] MAIN LAB [address] [place] [address] * CBC (01/08/2019 4:20 AM CDT) White Blood 4.8 4.5 - 11.0 K/UL MAIN LAB Cells RBC 3.11 (L) 4.0 - 5.0 M/UL [facility] Hemoglobin 10.5 (L) 12.0 - 15.0 GM/DL [facility] Hematocrit 31.7 (L) 36 - 45 % [facility] MCV 102.1 (H) 80 - 100 FL [facility] MAIN LAB MCH 33.8 26 - 34 PG MAIN LAB MCHC 33.1 32.0 - 36.0 G/DL MAIN LAB RDW 13.2 11 - 15 % [facility] MAIN LAB Platelet Count 263 150 - 400 K/UL MAIN LAB MPV 7.1 7 - 11 FL MAIN LAB Performing Organization Address [facility] [address]/[facility] Phone Number MAIN LAB [address] [place] [address] * BASIC METABOLIC PANEL (01/08/2019 4:20 AM CDT) Sodium 135 (L) 137 - 147 MMOL/L [facility] Potassium 4.3 3.5 - 5.1 MMOL/L [facility] Chloride 103 98 - 110 MMOL/L [facility] CO2 27 21 - 30 MMOL/L [facility] Anion Gap 5 3 - 12 [facility] Glucose 87 70 - 100 MG/DL [facility] Blood Urea 8 7 - 25 MG/DL [facility] Nitrogen Creatinine 0.29 (L) 0.4 - 1.00 MG/DL [facility] Calcium 8.2 (L) 8.5 - 10.6 MG/DL [facility] eGFR Non >60 >60 mL/min [facility] Comment: [place] The eGFR is not validated for use in drug dosing adjustments.Continue to use estimated creatinine clearance per dosing reference text.Please contact the Clinical Pharmacist for questions. eGFR >60 >60 mL/min [facility] [place] Comment: The eGFR is not validated for use in drug dosing adjustments.Continue to use estimated creatinine clearance per dosing reference text.Please contact the Clinical Pharmacist for questions. Performing Organization Address City/[facility] [address]/Zipcode Phone Number [facility] [address] [place] [address] * CHEST SINGLE VIEW (01/07/2019 6:14 AM CDT) Impressions Performed At 1. Similar patchy bilateral opacities again concerning for infection and/or [facility] RAD RESULTS aspiration. 2. Stable left upper lobe volume loss with apical cap and upper retraction of the left hilum. Attention on follow-up as previously recommended. 3. Small right apical and basal hydropneumothorax with chest tubes in place. Small left pleural effusion persists. Finalized by Biju Ewing M.D. on 01/07/2019 10:54 AM. Dictated by Biju Ewing M.D. on 01/07/2019 10:53 AM. Narrative Performed At CHEST SINGLE VIEW [facility] RAD RESULTS INDICATION: atelectasis COMPARISON STUDY: January 06, 2019. FINDINGS: Life Support Devices: Interval extubation and removal of the gastric tube. Stable right-sided chest tubes. Lungs: The lung volume is normal. Similar patchy bilateral opacities greatest in the right upper and left lower lung zones. Unchanged left upper lobe volume loss with apical cap and upward retraction of the left hilum. Pleura: Small right apical hydropneumothorax. Small left pleural effusion persists. Heart and Mediastinum: Leftward shift of the upper heart and mediastinum. Procedure Note Interface, Radiant Results - 01/07/2019 10:57 AM CDT CHEST SINGLE VIEW INDICATION: atelectasis COMPARISON STUDY: January 06, 2019. FINDINGS: Life Support Devices: Interval extubation and removal of the gastric tube. Stable right-sided chest tubes. Lungs: The lung volume is normal. Similar patchy bilateral opacities greatest in the right upper and left lower lung zones. Unchanged left upper lobe volume loss with apical cap and upward retraction of the left hilum. Pleura: Small right apical hydropneumothorax. Small left pleural effusion persists. Heart and Mediastinum: Leftward shift of the upper heart and mediastinum. IMPRESSION 1. Similar patchy bilateral opacities again concerning for infection and/or aspiration. 2. Stable left upper lobe volume loss with apical cap and upper retraction of the left hilum. Attention on follow-up as previously recommended. 3. Small right apical and basal hydropneumothorax with chest tubes in place. Small left pleural effusion persists. Finalized by Biju Ewing M.D. on 01/07/2019 10:54 AM. Dictated by Biju Ewing M.D. on 01/07/2019 10:53 AM. Performing Organization Address City/[facility] [address]/Zipcode Phone Number RAD RESULTS * MAGNESIUM (01/07/2019 3:46 AM CDT) Pathologist [facility] Magnesium 2.2 1.6 - 2.6 mg/dL MAIN LAB Specimen Blood Performing Organization Address [facility] [address]/[facility] Phone Number MAIN LAB [address] [place] [address] * CBC (01/07/2019 3:46 AM CDT) Pathologist [facility] White Blood 5.9 4.5 - 11.0 K/UL [facility] MAIN LAB Cells RBC 3.32 (L) 4.0 - 5.0 M/UL [facility] MAIN LAB Hemoglobin 11.2 (L) 12.0 - 15.0 GM/DL [facility] MAIN LAB Hematocrit 33.5 (L) 36 - 45 % [facility] MAIN LAB MCV 101.1 (H) 80 - 100 FL [facility] MAIN LAB MCH 33.6 26 - 34 PG [facility] MAIN LAB MCHC 33.3 32.0 - 36.0 G/DL [facility] MAIN LAB RDW 13.2 11 - 15 % [facility] MAIN LAB Platelet Count 275 150 - 400 K/UL [facility] MAIN LAB MPV 7.2 7 - 11 FL [facility] MAIN LAB Performing Organization Address [facility] [address]/[facility] Phone Number MA[facility] LAB [address] [place] [address] * BASIC METABOLIC PANEL (01/07/2019 3:46 AM CDT) [facility] Sodium 137 137 - 147 MMOL/L [facility] MAIN LAB Potassium 4.0 3.5 - 5.1 MMOL/L [facility] MAIN [facility] Chloride 102 98 - 110 MMOL/L [facility] MAIN [facility] CO2 28 21 - 30 MMOL/L [facility] MAIN LAB Anion Gap 7 3 - 12 [facility] MA[facility] LAB Glucose 109 (H) 70 - 100 MG/DL [facility] MAIN LAB Blood Urea 10 7 - 25 MG/DL [facility] MAIN LAB Nitrogen Creatinine 0.40 0.4 - 1.00 MG/DL [facility]IN [facility] Calcium 8.4 (L) 8.5 - 10.6 MG/DL [facility] MAIN LAB eGFR Non >60 >60 mL/min [facility] Comment: [place] The eGFR is not validated for use in drug dosing adjustments.Continue to use estimated creatinine clearance per dosing reference text.Please contact the Clinical Pharmacist for questions. eGFR >60 >60 mL/min [facility]IN [facility] [place] Comment: The eGFR is not validated for use in drug dosing adjustments.Continue to use estimated creatinine clearance per dosing reference text.Please contact the Clinical Pharmacist for questions. Performing Organization Address City/State/Zipcode Phone Number MAIN LAB [address] [place] [address] * POC BLOOD GAS ARTERIAL (01/06/2019 9:33 AM CDT) PH-ART-POC 7.38 7.35 - 7.45 [facility] MAIN LAB [id number]-BLW 44 35 - 45 MMHG [facility] MAIN LAB PO2-ART-POC 123 (H) 80 - 100 MMHG [facility] MAIN [facility] Base Ex-ART-POC 1.0 MMOL/L [facility] MAIN LAB O2 Sat-ART-POC 99.0 95 - 99 % [facility] MAIN LAB Bicarbonate-ART 26.1 21 - 28 MMOL/L [facility] MAIN LAB -POC Performing Organization Address City/[facility] [address]/[facility] Phone Number MAIN LAB [address] [place] [address] * CHEST SINGLE VIEW (01/06/2019 4:47 AM CDT) Impressions Performed At 1. Support devices as above. Endotracheal tube is slightly low terminating 1.6 K[facility] RAD RESULTS cm above the tristan and could be retracted for more optimal positioning. 2. Unchanged patchy bilateral heterogeneous opacities greatest in the right upper and left lower lobes concerning for infection or aspiration. 3. Small bilateral pleural effusions. Decreased right apical pneumothorax. 4. Persistent left upper lobe volume loss, architectural distortion and upward retraction of the left hilum, better evaluated on recent chest CT. Advise close follow-up radiographs or chest CT to ensure stability and exclude malignancy. Finalized by Biju Ewing M.D. on 01/06/2019 10:46 AM. Dictated by Biju Ewing M.D. on 01/06/2019 10:44 AM. Narrative Performed At CHEST SINGLE VIEW [facility] RAD RESULTS INDICATION: atelectasis COMPARISON STUDY: January 05, 2019. FINDINGS: Life Support Devices: Endotracheal tube terminates 1.6 cm above the tristan. Gastric tube courses into the stomach with tip not seen. Stable right-sided chest tube. Lungs: Low left lung volume. Similar left upper lobe volume loss with architectural distortion and apical cap resulting in upward retraction of the left hilum. Patchy bilateral opacities persists, greatest in the right upper and left lower lobes. Pleura: Stable pleural effusions. Decreased right apical pneumothorax. Heart and Mediastinum: The cardiomediastinal silhouette and great vessels are stable. Procedure Note Interface, Radiant Results - 01/06/2019 10:49 AM CDT CHEST SINGLE VIEW INDICATION: atelectasis COMPARISON STUDY: January 05, 2019. FINDINGS: Life Support Devices: Endotracheal tube terminates 1.6 cm above the tristan. Gastric tube courses into the stomach with tip not seen. Stable right-sided chest tube. Lungs: Low left lung volume. Similar left upper lobe volume loss with architectural distortion and apical cap resulting in upward retraction of the left hilum. Patchy bilateral opacities persists, greatest in the right upper and left lower lobes. Pleura: Stable pleural effusions. Decreased right apical pneumothorax. Heart and Mediastinum: The cardiomediastinal silhouette and great vessels are stable. IMPRESSION 1. Support devices as above. Endotracheal tube is slightly low terminating 1.6 cm above the tristan and could be retracted for more optimal positioning. 2. Unchanged patchy bilateral heterogeneous opacities greatest in the right upper and left lower lobes concerning for infection or aspiration. 3. Small bilateral pleural effusions. Decreased right apical pneumothorax. 4. Persistent left upper lobe volume loss, architectural distortion and upward retraction of the left hilum, better evaluated on recent chest CT. Advise close follow-up radiographs or chest CT to ensure stability and exclude malignancy. Finalized by Biju Ewing M.D. on 01/06/2019 10:46 AM. Dictated by Biju Ewing M.D. on 01/06/2019 10:44 AM. Performing Organization Address City/[facility] [address]/Zipcode Phone Number RAD RESULTS * MAGNESIUM (01/06/2019 2:15 AM CDT) Magnesium 2.3 1.6 - 2.6 mg/dL MAIN LAB Specimen Blood Performing Organization Address City/[facility] [address]/Zipcode Phone Number [facility] [address] [place] [address] * BASIC METABOLIC PANEL (01/06/2019 2:15 AM CDT) Sodium 132 (L) 137 - 147 MMOL/L [facility] MAIN LAB Potassium 3.8 3.5 - 5.1 MMOL/L [facility] MAIN LAB Chloride 100 98 - 110 MMOL/L [facility] MAIN [facility] CO2 25 21 - 30 MMOL/L [facility] MAIN [facility] Anion Gap 7 3 - 12 [facility] MAIN [facility] Glucose 137 (H) 70 - 100 MG/DL [facility] MAIN LAB Blood Urea 10 7 - 25 MG/DL [facility] MAIN LAB Nitrogen Creatinine 0.63 0.4 - 1.00 MG/DL [facility] MAIN LAB Calcium 8.5 8.5 - 10.6 MG/DL [facility] MAIN LAB eGFR Non >60 >60 mL/min [facility]IN LAB Comment: [place] The eGFR is not validated for use in drug dosing adjustments.Continue to use estimated creatinine clearance per dosing reference text.Please contact the Clinical Pharmacist for questions. eGFR >60 >60 mL/min [facility]IN [facility] [place] Comment: The eGFR is not validated for use in drug dosing adjustments.Continue to use estimated creatinine clearance per dosing reference text.Please contact the Clinical Pharmacist for questions. Performing Organization Address City/[facility] [address]/Zipcode Phone Number [facility] [address] [place] [address] * CBC (01/06/2019 2:15 AM CDT) Pathologist [facility] White Blood 5.6 4.5 - 11.0 K/UL MAIN LAB Cells RBC 3.76 (L) 4.0 - 5.0 M/UL MAIN LAB Hemoglobin 12.3 12.0 - 15.0 GM/DL KU MAIN LAB Hematocrit 37.9 36 - 45 % K[facility] MAIN LAB MCV 100.8 (H) 80 - 100 FL MAIN LAB MCH 32.6 26 - 34 PG MAIN LAB MCHC 32.4 32.0 - 36.0 G/DL MAIN LAB RDW 13.1 11 - 15 % [facility] MAIN LAB Platelet Count 317 150 - 400 K/UL MAIN LAB MPV 6.9 (L) 7 - 11 FL MAIN LAB Performing Organization Address City/[facility] [address]/Zipcode Phone Number [facility] [address] [place] [address] * BLOOD GASES, ARTERIAL (01/06/2019 2:15 AM CDT) pH-Arterial 7.49 (H) 7.35 - 7.45 MAIN LAB pCO2-Arterial 34 (L) 35 - 45 MMHG MAIN LAB pO2-Arterial 139 (H) 80 - 100 MMHG KU MAIN LAB Base 2.3 MMOL/L MAIN LAB Excess-Arterial O2 Sat-Arterial 99.5 (H) 95 - 99 % MAIN LAB Bicarbonate-ART 26.5 21 - 28 MMOL/L MAIN LAB -Mir Specimen Blood, arterial - Blood Performing Organization Address [facility] [address]/[facility] Cent[facility] Phone Number MAIN LAB [address] [place] [address] * POC BLOOD GAS ARTERIAL (01/05/2019 6:48 PM CDT) PH-ART-POC 7.43 7.35 - 7.45 K[facility] MAIN LAB HND2-VNY-BQH 36 35 - 45 MM[facility] MAIN LAB PO2-ART-POC 136 (H) 80 - 100 MMHG MAIN LAB Base 1.0 MMOL/L MAIN LAB Def-ART-POC O2 Sat-ART-POC 99.0 95 - 99 % MAIN LAB Bicarbonate-ART 23.3 21 - 28 MMOL/L MAIN LAB -POC Performing Organization Address [facility] [address]/[facility] Phone Number MAIN LAB [address] [place] [address] * BLOOD GASES, ARTERIAL (01/05/2019 4:15 PM CDT) pH-Arterial 7.52 (H) 7.35 - 7.45 MAIN LAB pCO2-Arterial 27 (L) 35 - 45 MM[facility] MAIN LAB pO2-Arterial 149 (H) 80 - 100 MMHG MAIN LAB Base 0.6 MMOL/L MAIN LAB Excess-Arterial O2 Sat-Arterial 99.5 (H) 95 - 99 % MAIN LAB Bicarbonate-ART 25.0 21 - 28 MMOL/L MAIN LAB -Imr Specimen Blood, arterial - Blood Performing Organization Address [facility] [address]/[facility] Cent[facility]ode Phone Number MAIN LAB [address] [place] [address] * PTT (APTT) (01/05/2019 1:30 PM CDT) APTT 26.5 24.0 - 36.5 SEC MAIN LAB Performing Organization Address [facility] [address]/[facility] Cent[facility]ode Phone Number MAIN LAB [address] [place] [address] * PROTIME INR (PT) (01/05/2019 1:30 PM CDT) INR 1.0 0.8 - 1.2 [facility] MAIN LAB Performing Organization Address [facility] [address]/[facility] Centercode Phone Number MAIN LAB [address] [place] [address] * BLOOD GASES, ARTERIAL (01/05/2019 1:30 PM CDT) pH-Arterial 7.49 (H) 7.35 - 7.45 MAIN LAB pCO2-Arterial 33 (L) 35 - 45 MM[facility] MAIN LAB pO2-Arterial 398 (H) 80 - 100 MMHG KU MAIN LAB Base 1.7 MMOL/L K[facility] MAIN LAB Excess-Arterial O2 Sat-Arterial 100.0 (H) 95 - 99 % MAIN LAB Bicarbonate-ART 26.0 21 - 28 MMOL/L MAIN LAB -Mir Specimen Blood, arterial - Blood Performing Organization Address [facility] [address]/[facility] Cent[facility]ode Phone Number MAIN LAB [address] [place] [address] * MAGNESIUM (01/05/2019 1:30 PM CDT) Magnesium 1.9 1.6 - 2.6 mg/dL MAIN LAB Specimen Blood Performing Organization Address [facility] [address]/[facility] Cent[facility]ode Phone Number MAIN LAB [address] [place] [address] * BASIC METABOLIC PANEL (01/05/2019 1:30 PM CDT) Sodium 131 (L) 137 - 147 MMOL/L KU MAIN LAB Potassium 4.4 3.5 - 5.1 MMOL/L MAIN LAB Chloride 97 (L) 98 - 110 MMOL/L [facility] MAIN LAB CO2 24 21 - 30 MMOL/L [facility] MAIN LAB Anion Gap 10 3 - 12 K[facility] MAIN LAB Glucose 107 (H) 70 - 100 MG/DL MAIN LAB Blood Urea 7 7 - 25 MG/DL MAIN LAB Nitrogen Creatinine 0.52 0.4 - 1.00 MG/DL MAIN LAB Calcium 9.0 8.5 - 10.6 MG/DL MAIN LAB eGFR Non >60 >60 mL/min MAIN LAB Comment: [place] The eGFR is not validated for use in drug dosing adjustments.Continue to use estimated creatinine clearance per dosing reference text.Please contact the Clinical Pharmacist for questions. eGFR >60 >60 mL/min MAIN LAB [place] Comment: The eGFR is not validated for use in drug dosing adjustments.Continue to use estimated creatinine clearance per dosing reference text.Please contact the Clinical Pharmacist for questions. Specimen Blood Performing Organization Address City/[facility] [address]/Zipcode Phone Number [facility] MAIN LAB [address] [place] [address] * CBC (01/05/2019 1:30 PM CDT) White Blood 8.5 4.5 - 11.0 K/UL KU MAIN LAB Cells RBC 4.01 4.0 - 5.0 M/UL [facility] MAIN LAB Hemoglobin 13.4 12.0 - 15.0 GM/DL [facility] MAIN LAB Hematocrit 39.8 36 - 45 % K[facility] MAIN LAB MCV 99.3 80 - 100 FL K[facility] MAIN LAB MCH 33.4 26 - 34 PG [facility] MAIN LAB MCHC 33.6 32.0 - 36.0 G/DL [facility] MAIN LAB RDW 12.9 11 - 15 % [facility] MAIN LAB Platelet Count 329 150 - 400 K/UL [facility] MAIN LAB MPV 6.6 (L) 7 - 11 FL [facility] MAIN LAB Specimen Blood Performing Organization Address City/State/Zipcode Phone Number MAIN LAB [address] [place] [phone] * ABDOMEN AP ONLY (01/05/2019 12:57 PM CDT) Impressions Performed At Indwelling gastric tube positioning as above. [facility] RAD RESULTS Finalized by Nannette Basurto M.D. [...] stomach. Lower pelvis is excluded from the [id number]. Visualized bowel gas pattern is nonobstructive. Procedure [...] stomach. Lower pelvis is excluded from the [id number]-[id number]. Visualized bowel gas pattern is nonobstructive. IMPRESSION Indwelling gastric tube positioning as above. Finalized by Nannette Basurto M.D. on 01/05/2019 1:26 PM. Dictated by Nannette Basurto M.D. on 01/05/2019 1:24 PM. Performing Organization Address City/State/Zipcode Phone Number [facility] RAD RESULTS * CHEST SINGLE VIEW (01/05/2019 12:20 PM CDT) Impressions Performed At 1.Right thoracostomy tubes in place with slight interval decrease in air [facility] RESULTS component of right hydropneumothorax. 2.Small left pleural effusion. 3.Chronic consolidation and architectural distortion of the left upper lung. Approved by Edwardo Shepherd M.D. on 01/05/2019 4:45 PM By my electronic signature, I attest that I have personally reviewed the images for this examination and formulated the interpretations and opinions expressed in this report Finalized by Silvestre Nichols M.D. on 01/05/2019 5:12 PM. Dictated by Edwardo Shepherd M.D. on 01/05/2019 3:40 PM. Narrative Performed At CHEST SINGLE VIEW [facility] RESULTS Clinical Indication: Female, 73 years old. Chest tube placement Comparison: Chest radiograph from earlier same-day Findings: Interval placement of 2 right thoracostomy tubes. Endotracheal tube is visualized with tip approximately 1 cm above the tristan. The cardiomediastinal silhouette is within normal limits. There is no pulmonary vascular congestion. Emphysematous changes are again noted. No significant change in left upper lung opacities. Interval decrease in air component of right hydropneumothorax. Small left pleural effusion. Procedure Note Interface, Radiant Results - 01/05/2019 5:16 PM CDT CHEST SINGLE VIEW Clinical Indication: Female, 73 years old. Chest tube placement Comparison: Chest radiograph from earlier same-day Findings: Interval placement of 2 right thoracostomy tubes. Endotracheal tube is visualized with tip approximately 1 cm above the tristan. The cardiomediastinal silhouette is within normal limits. There is no pulmonary vascular congestion. Emphysematous changes are again noted. No significant change in left upper lung opacities. Interval decrease in air component of right hydropneumothorax. Small left pleural effusion. IMPRESSION 1. Right thoracostomy tubes in place with slight interval decrease in air component of right hydropneumothorax. 2. Small left pleural effusion. 3. Chronic consolidation and architectural distortion of the left upper lung. Approved by Edwardo Shepherd M.D. on 01/05/2019 4:45 PM By my electronic signature, I attest that I have personally reviewed the images for this examination and formulated the interpretations and opinions expressed in this report Finalized by Silvestre Nichols M.D. on 01/05/2019 5:12 PM. Dictated by Edwardo Shepherd M.D. on 01/05/2019 3:40 PM. Performing Organization Address City/[facility] [address]/[facility] Centercoor Phone Number [facility] RESULTS * GRAM STAIN (01/05/2019 11:03 AM CDT) Battery Name GRAM STAIN MAIN LAB Specimen TISSUE MAIN LAB Description PLERUAL PEEL Special NONE MAIN LAB Requests Gram Stain NO NEUTROPHILS SEEN MAIN LAB NO ORGANISMS SEEN Report Status FINAL MAIN LAB 01/05/2019 Specimen Tissue - Tissue Performing Organization Address [facility] [address]/[facility] Phone Number MAIN LAB [address] [place] [address] * CULTURE-WOUND/TISSUE/FLUID(AEROBIC ONLY)W/SENSITIVITY (01/05/2019 11:03 AM CDT) Battery Name ROUTINE CULTURE [facility] MAIN LAB Specimen TISSUE MAIN LAB Description PLERUAL PEEL Special NONE MAIN LAB Requests Direct Gram NO NEUTROPHILS SEEN [facility] MAIN LAB Stain NO ORGANISMS SEEN Culture NO GROWTH 5 DAYS KU MAIN LAB Report Status FINAL MAIN LAB 01/10/2019 Specimen Tissue - Tissue Performing Organization Address [facility] Phone Number MAIN LAB [address] [place] [address] * CULTURE-ANAEROBIC (01/05/2019 11:03 AM CDT) Battery Name ANAEROBE CULTURE MAIN LAB Specimen TISSUE MAIN LAB Description PLERUAL PEEL Special NONE MAIN LAB Requests Culture NO ANAEROBES ISOLATED [facility] MAIN LAB Report Status FINAL MAIN LAB 01/11/2019 Specimen Tissue - Tissue Performing Organization Address [facility] Phone Number MAIN LAB [address] [place] [address] * CHEST SINGLE VIEW (01/05/2019 6:28 AM CDT) Impressions Performed At 1. Increase in right pneumothorax with apical, lateral and basal components and [facility] RAD RESULTS chest tube in place. 2. Patchy bilateral opacities, greatest in the left lower lobe suggestive of infection or aspiration. 3. Persistent left upper lobe volume loss and upward retraction of the hilum and architectural distortion and large associated apical cap, better appreciated on chest CT. Advise close follow-up radiographs or chest CT to exclude underlying malignancy. Finalized by Biju Ewing M.D. on 01/05/2019 10:45 AM. Dictated by Biju Ewing M.D. on 01/05/2019 10:39 AM. Narrative Performed At CHEST SINGLE VIEW [facility] RAD RESULTS INDICATION: Hydropneumothroax COMPARISON STUDY: January 04, 2019. FINDINGS: Life Support Devices: The life support devices are stable. Lungs: Scattered emphysema. Similar left upper lobe opacities with volume loss resulting in upward retraction of the left hilum. Patchy bilateral opacities, greatest in the left lower lobe. Pleura: Increase in right hydropneumothorax with apical, lateral and basal components. Small left pleural effusion. Heart and Mediastinum: Leftward shift of the heart and mediastinal structures. Procedure Note Interface, Radiant Results - 01/05/2019 10:48 AM CDT CHEST SINGLE VIEW INDICATION: Hydropneumothroax COMPARISON STUDY: January 04, 2019. FINDINGS: Life Support Devices: The life support devices are stable. Lungs: Scattered emphysema. Similar left upper lobe opacities with volume loss resulting in upward retraction of the left hilum. Patchy bilateral opacities, greatest in the left lower lobe. Pleura: Increase in right hydropneumothorax with apical, lateral and basal components. Small left pleural effusion. Heart and Mediastinum: Leftward shift of the heart and mediastinal structures. IMPRESSION 1. Increase in right pneumothorax with apical, lateral and basal components and chest tube in place. 2. Patchy bilateral opacities, greatest in the left lower lobe suggestive of infection or aspiration. 3. Persistent left upper lobe volume loss and upward retraction of the hilum and architectural distortion and large associated apical cap, better appreciated on chest CT. Advise close follow-up radiographs or chest CT to exclude underlying malignancy. Finalized by Biju Ewing M.D. on 01/05/2019 10:45 AM. Dictated by Biju Ewing M.D. on 01/05/2019 10:39 AM. Performing Organization Address City/State/Zipcode Phone Number [facility] RAD RESULTS * PHOSPHORUS (01/05/2019 5:31 AM CDT) Phosphorus 3.9Comment: NOTE NEW REFERENCE 2.0 - 4.5 MG/DL KU MAIN LAB RANGES Specimen Blood Performing Organization Address [facility] Centercode Phone Number MAIN LAB [address] [place] [address] * MAGNESIUM (01/05/2019 5:31 AM CDT) Magnesium 2.1 1.6 - 2.6 mg/dL KU MAIN LAB Specimen Blood Performing Organization Address [facility] [address]/[facility] Centercode Phone Number MAIN LAB [address] [place] [address] * COMPREHENSIVE METABOLIC PANEL (01/05/2019 5:31 AM CDT) Sodium 135 (L) 137 - 147 MMOL/L [...] >60 >60 mL/min [facility] MAIN LAB Comment: [place] The eGFR is not validated for use in drug dosing adjustments.Continue to use estimated creatinine clearance per dosing reference text.Please contact the Clinical Pharmacist for questions. eGFR >60 >60 mL/min K[facility] MAIN LAB [place] Comment: The eGFR is not validated for use in drug dosing adjustments.Continue to use estimated creatinine clearance per dosing reference text.Please contact the Clinical Pharmacist for questions. Specimen Blood Performing Organization Address [facility] [address]/Zipcode Phone Number MAIN LAB [address] [place] [address] * CBC AND DIFF (01/05/2019 5:31 AM CDT) White Blood 3.8 (L) 4.5 - 11.0 K/UL KU MAIN LAB Cells RBC 3.90 (L) 4.0 - 5.0 M/UL [facility] MAIN LAB Hemoglobin 12.9 12.0 - 15.0 GM/DL K[facility] MAIN LAB Hematocrit 39.4 36 - 45 % K[facility] MAIN LAB MCV 101.1 (H) 80 - 100 FL K[facility] MAIN LAB MCH 33.2 26 - 34 PG KU MAIN LAB MCHC 32.8 32.0 - 36.0 G/DL KU MAIN LAB RDW 13.4 11 - 15 % K[facility] MAIN LAB Platelet Count 337 150 - 400 K/UL KU MAIN LAB MPV 6.8 (L) 7 - 11 FL [facility] MAIN LAB Neutrophils 55 41 - 77 % KU MAIN LAB Lymphocytes 14 (L) 24 - 44 % KU MAIN LAB Monocytes 16 (H) 4 - 12 % KU MAIN LAB Eosinophils 14 (H) 0 - 5 % K[facility] MAIN LAB Basophils 1 0 - 2 % K[facility] MAIN LAB Absolute 2.10 1.8 - 7.0 K/UL KU MAIN LAB Neutrophil Count Absolute Lymph 0.50 (L) 1.0 - 4.8 K/UL KU MAIN LAB Count Absolute 0.60 0 - 0.80 K/UL KU MAIN LAB Monocyte Count Absolute 0.50 (H) 0 - 0.45 K/UL KU MAIN LAB Eosinophil Count Absolute 0.00 0 - 0.20 K/UL KU MAIN LAB Basophil Count Specimen Blood Performing Organization Address City/[facility] [address]/Zipcode Phone Number [facility] [address] [place] [address] * BLOOD TYPE CONFIRMATION - ORDER ONLY IF REQUESTED BY LAB (01/04/2019 2:55 PM CDT) ABO/RH(D) A POS MAIN LAB Specimen Blood Performing Organization Address City/[facility] [address]/Zipcode Phone Number [facility] [address] [place] [address] * TYPE & CROSSMATCH (01/04/2019 1:46 PM CDT) Units Ordered 0 KU MAIN LAB Crossmatch 01/07/2019 KU MAIN LAB Expires Record Check 2ND TYPE REQUIRED KU MAIN LAB ABO/RH(D) A POS [facility]U MAIN LAB Antibody Screen NEG MAIN LAB Electronic YES MAIN LAB Crossmatch Specimen Blood Performing Organization Address City/State/Zipcode Phone Number [facility] [address] [place] [address] * CHEST SINGLE VIEW (01/04/2019 10:04 AM CDT) Impressions Performed At 1.Indwelling right thoracostomy tube with moderate right hydropneumothorax [facility] RAD RESULTS with slight increase in effusion component. 2.Persistent opacification and volume loss of the left upper lobe. 3.Emphysema and scattered areas of scarring with small left pleural effusion versus scarring. Approved by Edwardo Shepherd M.D. on 01/04/2019 10:45 AM By my electronic signature, I attest that I have personally reviewed the images for this examination and formulated the interpretations and opinions expressed in this report Finalized by Humza Hilliard M.D. on 01/04/2019 10:49 AM. Dictated by Edwardo Shepherd M.D. on 01/04/2019 10:12 AM. Narrative Performed At CHEST SINGLE VIEW [facility] RAD RESULTS Clinical Indication: Female, 73 years old. Hydropneumothorax status post chest tube placement Comparison: Chest radiograph 01/02/2019 Findings: Right thoracostomy tube remains in place. The cardiomediastinal silhouette is stable. There is no pulmonary vascular congestion. Emphysematous changes are noted. Scattered areas of scarring. Redemonstration of opacification and volume loss of the left upper lobe. Blunting of the left costophrenic angle which may reflect pleural effusion or scarring. Slight interval increase in right pleural effusion, otherwise stable appearance of right hydropneumothorax. Procedure Note Interface, Radiant Results - 01/04/2019 10:52 AM CDT CHEST SINGLE VIEW Clinical Indication: Female, 73 years old. Hydropneumothorax status post chest tube placement Comparison: Chest radiograph 01/02/2019 Findings: Right thoracostomy tube remains in place. The cardiomediastinal silhouette is stable. There is no pulmonary vascular congestion. Emphysematous changes are noted. Scattered areas of scarring. Redemonstration of opacification and volume loss of the left upper lobe. Blunting of the left costophrenic angle which may reflect pleural effusion or scarring. Slight interval increase in right pleural effusion, otherwise stable appearance of right hydropneumothorax. IMPRESSION 1. Indwelling right thoracostomy tube with moderate right hydropneumothorax with slight increase in effusion component. 2. Persistent opacification and volume loss of the left upper lobe. 3. Emphysema and scattered areas of scarring with small left pleural effusion versus scarring. Approved by Edwardo Shepherd M.D. on 01/04/2019 10:45 AM By my electronic signature, I attest that I have personally reviewed the images for this examination and formulated the interpretations and opinions expressed in this report Finalized by Humza Hilliard M.D. on 01/04/2019 10:49 AM. Dictated by Edwardo Shehperd M.D. on 01/04/2019 10:12 AM. Performing Organization Address City/[facility] [address]/[facility] Centercode Phone Number [facility] RESULTS * PHOSPHORUS (01/04/2019 5:09 AM CDT) Pathologist [facility] Phosphorus 4.2Comment: NOTE NEW REFERENCE 2.0 - 4.5 MG/DL K[facility] MAIN LAB RANGES Specimen Blood Performing Organization Address [facility] [address]/[facility] Phone Number MAIN LAB [address] [place] [address] * MAGNESIUM (01/04/2019 5:09 AM CDT) Pathologist [facility] Magnesium 2.0 1.6 - 2.6 mg/dL K[facility] MAIN LAB Specimen Blood Performing Organization Address [facility] [address]/[facility] Phone Number MAIN LAB [address] [place] [address] * COMPREHENSIVE METABOLIC PANEL (01/04/2019 5:09 AM CDT) Pathologist [facility] Sodium 138 137 - 147 MMOL/L [facility] MAIN LAB Potassium 4.2 3.5 - 5.1 MMOL/L [facility] MAIN LAB Chloride 101 98 - 110 MMOL/L K[facility] MAIN LAB Glucose 97 70 - 100 MG/DL K[facility] MAIN LAB Blood Urea 6 (L) 7 - 25 MG/DL [facility] MAIN LAB Nitrogen Creatinine 0.41 0.4 - 1.00 MG/DL [facility] MAIN LAB Calcium 9.2 8.5 - 10.6 MG/DL [facility] MAIN LAB Total Protein 5.5 (L) 6.0 - 8.0 G/DL [facility] MAIN LAB Total Bilirubin 0.2 (L) 0.3 - 1.2 MG/DL [facility] MAIN LAB Albumin 3.1 (L) 3.5 - 5.0 G/DL [facility] MAIN LAB Alk Phosphatase 55 25 - 110 U/L [facility] MAIN LAB AST (SGOT) 17 7 - 40 U/L [facility] MAIN LAB CO2 32 (H) 21 - 30 MMOL/L [facility] MAIN LAB ALT (SGPT) 11 7 - 56 U/L [facility] MAIN LAB Anion Gap 5 3 - 12 K[facility] MAIN LAB eGFR Non >60 >60 mL/min [facility] MAIN LAB Comment: [place] The eGFR is not validated for use in drug dosing adjustments.Continue to use estimated creatinine clearance per dosing reference text.Please contact the Clinical Pharmacist for questions. eGFR >60 >60 mL/min [facility] MAIN LAB [place] Comment: The eGFR is not validated for use in drug dosing adjustments.Continue to use estimated creatinine clearance per dosing reference text.Please contact the Clinical Pharmacist for questions. Specimen Blood Performing Organization Address City/State/Zipcode Phone Number [facility] MAIN LAB [address] [place] [address] * CBC AND DIFF (01/04/2019 5:09 AM CDT) White Blood 3.6 (L) 4.5 - 11.0 K/UL KU MAIN LAB Cells RBC 3.61 (L) 4.0 - 5.0 M/UL [facility] MAIN LAB Hemoglobin 11.9 (L) 12.0 - 15.0 GM/DL [facility] MAIN LAB Hematocrit 36.9 36 - 45 % [facility] MAIN LAB MCV 102.3 (H) 80 - 100 FL [facility] MAIN LAB MCH 33.1 26 - 34 PG [facility] MAIN LAB MCHC 32.3 32.0 - 36.0 G/DL [facility] MAIN LAB RDW 13.2 11 - 15 % [facility] MAIN LAB Platelet Count 312 150 - 400 K/UL [facility] MAIN LAB MPV 6.9 (L) 7 - 11 FL [facility] MAIN LAB Neutrophils 55 41 - 77 % [facility] MAIN LAB Lymphocytes 15 (L) 24 - 44 % [facility] MAIN LAB Monocytes 15 (H) 4 - 12 % [facility] MAIN LAB Eosinophils 14 (H) 0 - 5 % [facility] MAIN LAB Basophils 1 0 - 2 % [facility] MAIN LAB Absolute 2.00 1.8 - 7.0 K/UL K[facility] MAIN LAB Neutrophil Count Absolute Lymph 0.50 (L) 1.0 - 4.8 K/UL [facility] MAIN LAB Count Absolute 0.60 0 - 0.80 K/UL [facility] MAIN LAB Monocyte Count Absolute 0.50 (H) 0 - 0.45 K/UL [facility] MAIN LAB Eosinophil Count Absolute 0.00 0 - 0.20 K/UL [facility] MAIN LAB Basophil Count Specimen Blood Performing Organization Address City/[facility] [address]/[facility] Cent[facility]ode Phone Number [facility] MAIN LAB [address] [place] [address] * TSH WITH FREE T4 REFLEX (01/03/2019 3:35 AM CDT) TSH 3.840 0.35 - 5.00 MCU/ML [facility] MAIN LAB Performing Organization Address [facility] Phone Number [facility] [address] [place] [phone] * VITAMIN B12 (01/03/2019 3:35 AM CDT) Vitamin B12 396 180 - 914 PG/ML [facility] MAIN LAB Performing Organization Address [facility] [address]/[facility] Phone Number [facility] [address] [place] [phone] * PHOSPHORUS (01/03/2019 3:35 AM CDT) Phosphorus 3.6Comment: NOTE NEW REFERENCE 2.0 - 4.5 MG/DL [facility] MAIN LAB RANGES Specimen Blood Performing Organization Address [facility] Phone Number [facility] MAIN LAB [address] [place] [phone] * MAGNESIUM (01/03/2019 3:35 AM CDT) Magnesium 1.9 1.6 - 2.6 mg/dL [facility] MAIN LAB Specimen Blood Performing Organization Address [facility] Phone Number [facility] [address] [place] [phone] * COMPREHENSIVE METABOLIC PANEL (01/03/2019 3:35 AM CDT) Sodium 141 137 - 147 MMOL/L [facility] MAIN LAB Potassium 4.5 3.5 - 5.1 MMOL/L [facility] MAIN LAB Chloride 102 98 - 110 MMOL/L [facility] MAIN LAB Glucose 106 (H) 70 - 100 MG/DL [facility] MAIN LAB Blood Urea 6 (L) 7 - 25 MG/DL [facility] MAIN LAB Nitrogen Creatinine 0.44 0.4 - 1.00 MG/DL [facility] MAIN LAB Calcium 9.3 8.5 - 10.6 MG/DL [facility] MAIN LAB Total Protein 5.8 (L) 6.0 - 8.0 G/DL [facility] MAIN LAB Total Bilirubin 0.3 0.3 - 1.2 MG/DL [facility] MAIN LAB Albumin 3.4 (L) 3.5 - 5.0 G/DL [facility] MAIN LAB Alk Phosphatase 63 25 - 110 U/L [facility] MAIN LAB AST (SGOT) 19 7 - 40 U/L [facility] MAIN LAB CO2 33 (H) 21 - 30 MMOL/L [facility] MAIN LAB ALT (SGPT) 13 7 - 56 U/L [facility] MAIN LAB Anion Gap 6 3 - 12 [facility] MAIN LAB eGFR Non >60 >60 mL/min [facility] MAIN LAB Comment: [place] The eGFR is not validated for use in drug dosing adjustments.Continue to use estimated creatinine clearance per dosing reference text.Please contact the Clinical Pharmacist for questions. eGFR >60 >60 mL/min [facility] MAIN LAB [place] Comment: The eGFR is not validated for use in drug dosing adjustments.Continue to use estimated creatinine clearance per dosing reference text.Please contact the Clinical Pharmacist for questions. Specimen Blood Performing Organization Address City/State/Zipcode Phone Number [facility] MAIN [facility] [address] [place] [address] * CBC AND DIFF (01/03/2019 3:35 AM CDT) White Blood 4.7 4.5 - 11.0 K/UL [facility] MAIN LAB Cells RBC 3.70 (L) 4.0 - 5.0 M/UL [facility] MAIN LAB Hemoglobin 12.3 12.0 - 15.0 GM/DL [facility] MAIN LAB Hematocrit 37.3 36 - 45 % [facility] MAIN LAB MCV 100.8 (H) 80 - 100 FL [facility] MCH 33.2 26 - 34 PG [facility] MCHC 32.9 32.0 - 36.0 G/DL [facility] RDW 13.4 11 - 15 % [facility] Platelet Count 253 150 - 400 K/UL [facility] MPV 7.2 7 - 11 FL [facility] Neutrophils 63 41 - 77 % [facility] Lymphocytes 14 (L) 24 - 44 % [facility] Monocytes 11 4 - 12 % [facility] Eosinophils 11 (H) 0 - 5 % [facility] Basophils 1 0 - 2 % [facility] Absolute 3.00 1.8 - 7.0 K/UL [facility] Neutrophil Count Absolute Lymph 0.60 (L) 1.0 - 4.8 K/UL [facility] Count Absolute 0.50 0 - 0.80 K/UL [facility] Monocyte Count Absolute 0.50 (H) 0 - 0.45 K/UL [facility] Eosinophil Count Absolute 0.00 0 - 0.20 K/UL [facility] Basophil Count Specimen Blood Performing Organization Address City/State/Zipcode Phone Number [facility] [address] [place] [address] * CT CHEST W CONTRAST (01/02/2019 10:56 [...] on 01/02/2019 12:00 PM. Performing Organization Address City/State/Zipcode Phone Number [facility] * CHEST SINGLE VIEW (01/02/2019 8:37 AM CDT) Impressions Performed At 1.Indwelling right thoracostomy tube with moderate right pneumothorax, [facility] unchanged. 2.Persistent opacification and volume loss of the left upper lobe. 3.Emphysema and scattered areas of scarring with small left pleural effusion versus scarring. Approved by Edwardo Shepherd M.D. on 01/02/2019 11:02 AM By my electronic signature, I attest that I have personally reviewed the images for this examination and formulated the interpretations and opinions expressed in this report Finalized by BRIGHT PATRICK on 01/02/2019 11:16 AM. Dictated by Edwardo Shepherd M.D. on 01/02/2019 10:05 AM. Narrative Performed At CHEST SINGLE VIEW [facility] Clinical Indication: Female, 73 years old. Chest tube Comparison: Chest radiograph from previous day Findings: Right thoracostomy tube remains in place. The cardiomediastinal silhouette is stable. There is no pulmonary vascular congestion. Emphysematous changes are noted. Scattered areas of scarring. Redemonstration of opacification and volume loss of the left upper lobe. Blunting of the left costophrenic angle which may reflect pleural effusion or scarring. No significant change in moderate right pneumothorax. Procedure Note Interface, Radiant Results - 01/02/2019 11:19 AM CDT CHEST SINGLE VIEW Clinical Indication: Female, 73 years old. Chest tube Comparison: Chest radiograph from previous day Findings: Right thoracostomy tube remains in place. The cardiomediastinal silhouette is stable. There is no pulmonary vascular congestion. Emphysematous changes are noted. Scattered areas of scarring. Redemonstration of opacification and volume loss of the left upper lobe. Blunting of the left costophrenic angle which may reflect pleural effusion or scarring. No significant change in moderate right pneumothorax. IMPRESSION 1. Indwelling right thoracostomy tube with moderate right pneumothorax, unchanged. 2. Persistent opacification and volume loss of the left upper lobe. 3. Emphysema and scattered areas of scarring with small left pleural effusion versus scarring. Approved by Edwardo Shepherd M.D. on 01/02/2019 11:02 AM By my electronic signature, I attest that I have personally reviewed the images for this examination and formulated the interpretations and opinions expressed in this report Finalized by BRIGHT PATRICK on 01/02/2019 11:16 AM. Dictated by Edwardo Shepherd M.D. on 01/02/2019 10:05 AM. Performing Organization Address City/State/Zipcode Phone Number RAD RESULTS * MAGNESIUM (01/02/2019 3:17 AM CDT) Pathologist [facility] Magnesium 1.8 1.6 - 2.6 mg/dL MAIN LAB Specimen Blood Performing Organization Address City/[facility] [address]/Zipcode Phone Number MAIN LAB [address] [place] [address] * COMPREHENSIVE METABOLIC PANEL (01/02/2019 3:17 AM CDT) Pathologist [facility] Sodium 137 137 - 147 MMOL/L [facility] Potassium 3.5 3.5 - 5.1 MMOL/L [facility] Chloride 101 98 - 110 MMOL/L [facility] Glucose 106 (H) 70 - 100 MG/DL [facility] Blood Urea 8 7 - 25 MG/DL [facility] Nitrogen Creatinine 0.40 0.4 - 1.00 MG/DL [facility] Calcium 8.5 8.5 - 10.6 MG/DL [facility] Total Protein 4.9 (L) 6.0 - 8.0 G/DL [facility] Total Bilirubin 0.2 (L) 0.3 - 1.2 MG/DL [facility] Albumin 2.9 (L) 3.5 - 5.0 G/DL [facility] Alk Phosphatase 61 25 - 110 U/L [facility] AST (SGOT) 14 7 - 40 U/L [facility] CO2 29 21 - 30 MMOL/L [facility] ALT (SGPT) 10 7 - 56 U/L [facility] Anion Gap 7 3 - 12 [facility] eGFR Non >60 >60 mL/min [facility] Comment: [place] The eGFR is not validated for use in drug dosing adjustments.Continue to use estimated creatinine clearance per dosing reference text.Please contact the Clinical Pharmacist for questions. eGFR >60 >60 mL/min [facility] [place] Comment: The eGFR is not validated for use in drug dosing adjustments.Continue to use estimated creatinine clearance per dosing reference text.Please contact the Clinical Pharmacist for questions. Specimen Blood Performing Organization Address City/State/Zipcode Phone Number MAIN LAB [address] [place] [address] * CBC AND DIFF (01/02/2019 3:17 AM CDT) White Blood 4.4 (L) 4.5 - 11.0 K/UL [facility] Cells RBC 3.27 (L) 4.0 - 5.0 M/UL [facility] Hemoglobin 10.9 (L) 12.0 - 15.0 GM/DL [facility] Hematocrit 33.5 (L) 36 - 45 % [facility] MCV 102.3 (H) 80 - 100 FL [facility] MCH 33.4 26 - 34 PG [facility] MCHC 32.7 32.0 - 36.0 G/DL [facility] RDW 13.1 11 - 15 % [facility] Platelet Count 289 150 - 400 K/UL [facility] MPV 6.8 (L) 7 - 11 FL [facility] Neutrophils 66 41 - 77 % [facility] Lymphocytes 11 (L) 24 - 44 % [facility] Monocytes 11 4 - 12 % [facility] Eosinophils 12 (H) 0 - 5 % [facility] Basophils 0 0 - 2 % [facility] Absolute 2.90 1.8 - 7.0 K/UL [facility] Neutrophil Count Absolute Lymph 0.50 (L) 1.0 - 4.8 K/UL [facility] Count Absolute 0.50 0 - 0.80 K/UL [facility] Monocyte Count Absolute 0.50 (H) 0 - 0.45 K/UL [facility] Eosinophil Count Absolute 0.00 0 - 0.20 K/UL [facility] Basophil Count Specimen Blood Performing Organization Address City/State/Zipcode Phone Number [facility] [address] [place] [address] * TROPONIN-I (01/01/2019 6:40 PM CDT) Troponin-I <0.03 0.0 - 0.05 NG/ML [facility] Specimen Blood Performing Organization Address City/[facility] [address]/Zipcode Phone Number [facility] [address] [place] [address] * CHEST SINGLE VIEW (01/01/2019 5:05 PM CDT) Impressions Performed At 1.Moderate right pneumothorax with right chest tube in place. This was known [facility] RESULTS to the ordering provider per chart review. 2.Complete opacification and volume loss involving the left upper lobe. This is concerning for an obstructing mass. CT chest recommended for further evaluation, if not already obtained. 3.Emphysema and scattered areas of scarring. Blunting of the left costophrenic angle may represent pleural effusion versus scarring. Approved by Melissa Paz M.D. on 01/02/2019 8:34 AM By my electronic signature, I attest that I have personally reviewed the images for this examination and formulated the interpretations and opinions expressed in this report Finalized by BRIGHT PATRICK on 01/02/2019 10:47 AM. Dictated by Melissa Paz M.D. on 01/02/2019 7:01 AM. Narrative Performed At CHEST SINGLE VIEW [facility] RESULTS HISTORY: 73 year old Female with Reported infiltrate at OSH. Acute respiratory failure. Right pneumothorax. TECHNIQUE: Portable frontal view of the chest was obtained. COMPARISON: No prior outside imaging available at time of interpretation FINDINGS: Right thoracostomy tube in place. Cardiac silhouette is shifted to the left and poorly evaluated. Moderate right pneumothorax. Blunting of the left costophrenic angle, which may represent pleural effusion or scarring. Emphysematous changes are noted. There is opacification and volume loss of the left upper lobe. Scattered areas of scarring within the aerated portions of the lungs. Retained contrast within the visualized renal collecting system on the left. Procedure Note Interface, Radiant Results - 01/02/2019 10:51 AM CDT CHEST SINGLE VIEW HISTORY: 73 year old Female with Reported infiltrate at OSH. Acute respiratory failure. Right pneumothorax. TECHNIQUE: Portable frontal view of the chest was obtained. COMPARISON: No prior outside imaging available at time of interpretation FINDINGS: Right thoracostomy tube in place. Cardiac silhouette is shifted to the left and poorly evaluated. Moderate right pneumothorax. Blunting of the left costophrenic angle, which may represent pleural effusion or scarring. Emphysematous changes are noted. There is opacification and volume loss of the left upper lobe. Scattered areas of scarring within the aerated portions of the lungs. Retained contrast within the visualized renal collecting system on the left. IMPRESSION 1. Moderate right pneumothorax with right chest tube in place. This was known to the ordering provider per chart review. 2. Complete opacification and volume loss involving the left upper lobe. This is concerning for an obstructing mass. CT chest recommended for further evaluation, if not already obtained. 3. Emphysema and scattered areas of scarring. Blunting of the left costophrenic angle may represent pleural effusion versus scarring. Approved by Melissa Paz M.D. on 01/02/2019 8:34 AM By my electronic signature, I attest that I have personally reviewed the images for this examination and formulated the interpretations and opinions expressed in this report Finalized by BRIGHT PATRICK on 01/02/2019 10:47 AM. Dictated by Melissa Paz M.D. on 01/02/2019 7:01 AM. Performing Organization Address City/State/Zipcode Phone Number [facility] RES[facility] * BLOOD GASES, ARTERIAL (01/01/2019 5:00 PM CDT) pH-Arterial 7.37 7.35 - 7.45 [facility] pCO2-Arterial 52 (H) 35 - 45 MMHG [facility] pO2-Arterial 81 80 - 100 MMHG [facility] Base 3.8 MMOL/L [facility] Excess-Arterial O2 Sat-Arterial 96.3 95 - 99 % [facility] Bicarbonate-ART 27.8 21 - 28 MMOL/L [facility] -Mir Specimen Blood, arterial - Blood Performing Organization Address City/[facility] [address]/Zipcode Phone Number MAIN LAB [address] [place] [address] * BLOOD BANK SAMPLE HOLD (01/01/2019 4:35 PM CDT) BB Sample hold IN LAB [facility] Performing Organization Address City/[facility] [address]/[facility] Phone Number MA[facility] LAB [address] [place] [address] * TROPONIN-I (01/01/2019 4:35 PM CDT) Troponin-I <0.03 0.0 - 0.05 NG/ML MAIN LAB Specimen Blood Performing Organization Address [facility] [address]/[facility] Cent[facility] Phone Number MAIN LAB [address] [place] [address] * PROCALCITONIN (01/01/2019 4:35 PM CDT) Procalcitonin 0.02 <0.10 NG/ML MAIN LAB Specimen Blood Performing Organization Address City/[facility] [address]/[facility] Phone Number MAIN LAB [address] [place] [address] * BNP (B-TYPE NATRIURETIC PEPTI) (01/01/2019 4:35 PM CDT) B Type 36.0 0 - 100 PG/ML MAIN LAB Natriuretic Peptide Specimen Blood Performing Organization Address [facility] [address]/[facility] Cent[facility] Phone Number MAIN LAB [address] [place] [address] * PHOSPHORUS (01/01/2019 4:35 PM CDT) Phosphorus 3.0Comment: NOTE NEW REFERENCE 2.0 - 4.5 MG/DL MAIN LAB RANGES Specimen Blood Performing Organization Address City/[facility] [address]/Zipcode Phone Number MAIN LAB [address] [place] [address] * MAGNESIUM (01/01/2019 4:35 PM CDT) Magnesium 1.8 1.6 - 2.6 mg/dL MAIN LAB Specimen Blood Performing Organization Address City/[facility] [address]/Zipcode Phone Number MAIN LAB [address] [place] [address] * LACTIC ACID (BG - RAPID LACTATE) (01/01/2019 4:35 PM CDT) Pathologist [facility] Lactic Acid,BG 1.0 0.5 - 2.0 MMOL/L MAIN LAB Specimen Blood Performing Organization Address [facility] [address]/Zipcode Phone Number [facility] [address] [place] [address] * COMPREHENSIVE METABOLIC PANEL (01/01/2019 4:35 PM CDT) Pathologist [facility] Sodium 136 (L) 137 - 147 MMOL/L [facility] Potassium 3.9 3.5 - 5.1 MMOL/L [facility] Chloride 100 98 - 110 MMOL/L [facility] Glucose 103 (H) 70 - 100 MG/DL [facility] Blood Urea 11 7 - 25 MG/DL [facility] Nitrogen Creatinine 0.46 0.4 - 1.00 MG/DL [facility] Calcium 9.0 8.5 - 10.6 MG/DL [facility] Total Protein 5.9 (L) 6.0 - 8.0 G/DL [facility] Total Bilirubin 0.3 0.3 - 1.2 MG/DL [facility] Albumin 3.5 3.5 - 5.0 G/DL [facility] Alk Phosphatase 79 25 - 110 U/L [facility] AST (SGOT) 18 7 - 40 U/L [facility] CO2 28 21 - 30 MMOL/L [facility] ALT (SGPT) 15 7 - 56 U/L [facility] Anion Gap 8 3 - 12 [facility] eGFR Non >60 >60 mL/min [facility] Comment: [place] The eGFR is not validated for use in drug dosing adjustments.Continue to use estimated creatinine clearance per dosing reference text.Please contact the Clinical Pharmacist for questions. eGFR >60 >60 mL/min [facility] [place] Comment: The eGFR is not validated for use in drug dosing adjustments.Continue to use estimated creatinine clearance per dosing reference text.Please contact the Clinical Pharmacist for questions. Specimen Blood Performing Organization Address [facility] [address]/Zipcode Phone Number MAIN LAB [address] [place] [address] * PTT (APTT) (01/01/2019 4:35 PM CDT) APTT 25.8 24.0 - 36.5 SEC [facility] Specimen Blood Performing Organization Address [facility] [address]/Zipcode Phone Number MAIN LAB [address] [place] [address] * PROTIME INR (PT) (01/01/2019 4:35 PM CDT) Pathologist [facility] INR 1.0 0.8 - 1.2 [facility] Specimen Blood Performing Organization Address [facility] [address]/[facility] Phone Number [facility] [address] [place] [address] * CBC AND DIFF (01/01/2019 4:35 PM CDT) Pathologist [facility] White Blood 6.1 4.5 - 11.0 K/UL [facility] Cells RBC 3.66 (L) 4.0 - 5.0 M/UL [facility] Hemoglobin 12.3 12.0 - 15.0 GM/DL [facility] Hematocrit 36.8 36 - 45 % [facility] MCV 100.5 (H) 80 - 100 FL [facility] MCH 33.6 26 - 34 PG [facility] MCHC 33.5 32.0 - 36.0 G/DL [facility] RDW 12.9 11 - 15 % [facility] Platelet Count 378 150 - 400 K/UL [facility] MPV 6.8 (L) 7 - 11 FL [facility] Neutrophils 72 41 - 77 % [facility] Lymphocytes 10 (L) 24 - 44 % [facility] Monocytes 11 4 - 12 % [facility] Eosinophils 7 (H) 0 - 5 % [facility] Basophils 0 0 - 2 % [facility] Absolute 4.40 1.8 - 7.0 K/UL [facility] Neutrophil Count Absolute Lymph 0.60 (L) 1.0 - 4.8 K/UL [facility] Count Absolute 0.70 0 - 0.80 K/UL [facility] Monocyte Count Absolute 0.40 0 - 0.45 K/UL [facility] Eosinophil Count Absolute 0.00 0 - 0.20 K/UL [facility] Basophil Count Specimen Blood Performing Organization Address [facility] Centercode Phone Number MAIN LAB [address] [place] [id number] * TELEMETRY STRIPS-SCAN (01/01/2019 12:00 AM CDT) [...] At Ordered by an unspecified provider. * GENERAL RAD CHEST EXTERNAL IMAGING (01/01/2019 12:00 AM CDT) Narrative Performed At This order has been auto finalized and does not contain a result. documented in this encounter Visit Diagnoses Diagnosis Pneumothorax on right - Primary Other pneumothorax Acute respiratory failure with hypoxia (HCC) Acute respiratory failure Bullous emphysema with collapse (HCC) Emphysematous bleb On mechanically assisted ventilation (HCC) Other emphysema (HCC) Other emphysema Severe malnutrition (HCC) Nutritional marasmus documented in this encounter Admitting Diagnoses Diagnosis Acute respiratory failure with hypoxia (HCC) Acute respiratory failure documented in this encounter Administered Medications Action Date Dose Rate Site Medication Order MAR Action 01/07/2019 10:11 AM CDT 1,000 mg acetaminophen (TYLENOL) oral solution Given 1,000 mg 1,000 mg, Per NG tube, EVERY 6 HOURS WHILE AWAKE, 15 doses, First dose on Fri01/05/19 at 1500, Last dose on Fri01/10/19 at 0900, TOTAL ACETAMINOPHEN DOSE NOT TO EXCEED 4GM DAILY, 1,000 mg Given 01/06/2019 8:29 AM CDT 1,000 mg Given 01/05/2019 8:53 PM CDT 01/05/2019 10:14 AM CDT 1,000 mg acetaminophen (TYLENOL) tablet 1,000 mg Given 1,000 mg, Oral, ONCE, 1 dose, Fri01/05/19 at 1015, TOTAL ACETAMINOPHEN DOSE NOT TO EXCEED 4GM DAILY, Pre-Op 01/10/2019 8:28 AM CDT 1,000 mg acetaminophen (TYLENOL) tablet 1,000 mg Given 1,000 mg, Oral, EVERY 6 HOURS WHILE AWAKE, 15 doses, First dose on Fri01/05/19 at 1500, Last dose on Fri01/10/19 at 0900, TOTAL ACETAMINOPHEN DOSE NOT TO EXCEED 4GM DAILY, 1,000 mg Given 01/09/2019 8:41 PM CDT 1,000 mg Given 01/09/2019 2:36 PM CDT 01/16/2019 8:49 AM CDT 650 mg acetaminophen (TYLENOL) tablet 650 mg Given 650 mg, Oral, EVERY 4 HOURS PRN, Starting Fri01/01/19 at 1845, Until 01/16/19 at 1359, Pain non-opioid: may be used alone or in combination with opioid analgesia, TOTAL ACETAMINOPHEN DOSE NOT TO EXCEED 4GM DAILY, 650 mg Given 01/15/2019 10:25 PM CDT 650 mg Given 01/15/2019 4:25 PM CDT ACETAMINOPHEN 500 MG PO TAB (Cabinet Override) NOW, 1 dose, Fri01/05/19 at 1015, Created by cabinet override, Created by cabinet override, 01/12/2019 8:17 AM CDT 3 mL acetylcysteine (MUCOMYST) 200 mg/mL (20 Given %) nebulizer solution 3 mL 3 mL, Inhalation, RT THREE TIMES DAILY AND PRN, First dose on Fri01/10/19 at 0830, Until Discontinued, When administered by RT, will be per RT policy. [id number]/ml, 3 mL Given 01/11/2019 8:50 PM CDT 3 mL Given 01/11/2019 2:01 PM CDT 01/14/2019 9:01 PM CDT 3 mL acetylcysteine (MUCOMYST) 200 mg/mL (20 Given %) nebulizer solution 3 mL 3 mL, Inhalation, RT NEEDED, Starting 01/12/19 at 1515, Until 01/16/19 at 1359, RT PROTOCOL, When administered by RT, will be per RT policy. [id number]/ml, 3 mL Given 01/12/2019 8:16 PM CDT 01/08/2019 8:41 AM CDT 2.5 mg albuterol 0.083% (PROVENTIL; VENTOLIN) Given nebulizer solution 2.5 mg 2.5 mg, Inhalation, RT EVERY 4 HOURS WHILE AWAKE, First dose on Fri01/03/19 at 2030, Until Discontinued, When administered by RT, will be per RT policy., 2.5 mg Given 01/07/2019 8:21 PM CDT 2.5 mg Given 01/07/2019 3:59 PM CDT 01/11/2019 8:49 PM CDT 2.5 mg albuterol 0.083% (PROVENTIL; VENTOLIN) Given nebulizer solution 2.5 mg 2.5 mg, Inhalation, RT TWICE DAILY AND PRN, First dose on Fri01/08/19 at 1800, Until Discontinued, When administered by RT, will be per RT policy., 2.5 mg Given 01/11/2019 9:28 AM CDT 2.5 mg Given 01/10/2019 8:14 PM CDT 01/03/2019 4:30 PM CDT 2.5 mg albuterol 0.5% (PROVENTIL; VENTOLIN) Given nebulizer solution 2.5 mg 2.5 mg, Inhalation, RT EVERY 4 HOURS AND PRN, First dose on Fri01/01/19 at 2000, Until Discontinued, ADMINISTERED BY RT, 2.5 mg Given 01/03/2019 12:56 PM CDT 2.5 mg Given 01/03/2019 9:06 AM CDT 01/16/2019 8:48 AM CDT 2.5 mg albuterol 0.5% (PROVENTIL; VENTOLIN) Given nebulizer solution 2.5 mg 2.5 mg, Inhalation, RT THREE TIMES DAILY AND PRN, First dose on 01/11/19 at 2245, Until Discontinued, When administered by RT, will be per RT policy., 2.5 mg Given 01/15/2019 1:29 PM CDT 2.5 mg Given 01/15/2019 8:42 AM CDT 01/06/2019 2:59 AM CDT 1 g ceFAZolin (ANCEF) IVP 1 g Given 1 g, Intravenous, EVERY 8 HOURS, 2 doses, First dose on Tu01/05/19 at 1900, Last dose on Fri01/06/19 at 0300, IV PUSH -- RECONSTITUTE each 1 g vial by adding 10 mL 0.9% NACL, 1 g Given 01/05/2019 6:46 PM CDT 01/16/2019 10:38 AM CDT 250 mg ciprofloxacin (CIPRO) tablet 250 mg Given 250 mg, Oral, TWICE DAILY, 6 doses, First dose on Dyan 01/14/19 at 0115, Last dose on 01/16/19 at 1100, NURSING: Please educate patient and document: Give 1 hour before or 2 hours after meals. If patient is receiving tube feedings, hold tube feedings 1 hour before and 2 hours after dose. Do not give within 2 hours of antacids, magnesium, calcium, iron, zinc, or vitamins containing these minerals., 250 mg Given 01/15/2019 8:08 PM CDT 250 mg Given 01/15/2019 11:57 AM CDT 01/13/2019 3:16 PM CDT 50 mL dextrose 50% (D50) syringe 50 mL Given 50 mL, SEE ADMIN INSTRUCTIONS, ONCE, 1 dose, Fri01/13/19 at 1430, CTS BACK GRINDER will administer VIA chest tube. Please pull and have at bedside. NOTE: This is a HIGH ALERT Medication., 01/02/2019 9:02 PM CDT 40 mg Abdominal Tissue enoxaparin (LOVENOX) syringe 40 mg Given 40 mg, Subcutaneous, DAILY, First dose on 01/02/19 at 2100, Until Discontinued, For patients undergoing surgery: Consult physician in advance -- enoxaparin is an anticoagulant and may need to be held for 12hr prior to surgery or invasive procedures. NOTE: This is a HIGH ALERT Medication., 01/05/2019 8:53 PM CDT 20 mg famotidine (PEPCID) injection 20 mg Given 20 mg, Intravenous, TWICE DAILY, First dose on Fri01/05/19 at 1230, Until Discontinued, DILUTE W/ 10ML NS OR D5W. GIVE IV PUSH OVER 2 MIN, 20 mg Given 01/05/2019 2:22 PM CDT 01/06/2019 8:29 AM CDT 20 mg famotidine (PEPCID) tablet 20 mg Given 20 mg, Oral, TWICE DAILY, First dose on Fri01/05/19 at 1230, Until Discontinued 01/06/2019 4:44 AM CDT 25 mcg fentaNYL citrate PF (SUBLIMAZE) Given injection 25 mcg 25 mcg, Intravenous, EVERY 1 HOUR PRN, Starting Fri01/06/19 at 0223, Until 01/16/19 at 1359, Pain Injectable, To be given in ICU only., 01/06/2019 1:16 AM CDT 50 mcg fentaNYL citrate PF (SUBLIMAZE) Given injection 25-50 mcg 25-50 mcg, Intravenous, EVERY 1 HOUR PRN, Starting Fri01/05/19 at 1234, Until Fri01/06/19 at 0224, Pain Injectable, To be given in ICU only., 50 mcg Given 01/05/2019 9:15 PM CDT 50 mcg Given 01/05/2019 5:53 PM CDT 01/16/2019 8:49 AM CDT 1 puff fluticasone-salmeterol (ADVAIR DISKUS) Given 250-50 mcg/dose inhalation disk 1 puff 1 puff, Inhalation, RT TWICE DAILY, First dose on Fri01/01/19 at 1815, Until Discontinued, When administered by RT, will be per RT policy., 1 puff Given 01/15/2019 8:57 PM CDT 1 puff Given 01/15/2019 8:42 AM CDT 01/16/2019 8:49 AM CDT 1 mg folic acid (FOLVITE) tablet 1 mg Given 1 mg, Oral, DAILY, First dose on Fri01/01/19 at 1845, Until Discontinued 1 mg Given 01/15/2019 8:58 AM CDT 1 mg Given 01/14/2019 9:06 AM CDT 01/16/2019 8:49 AM CDT 600 mg guaiFENesin LA (MUCINEX) tablet 600 mg Given 600 mg, Oral, THREE TIMES DAILY, First dose on Fri01/12/19 at 1630, Until Discontinued 600 mg Given 01/15/2019 8:08 PM CDT 600 mg Given 01/15/2019 4:24 PM CDT 01/05/2019 10:15 AM CDT 5,000 Units Abdomen:RLQ heparin (porcine) PF syringe 5,000 Units Given 5,000 Units, Subcutaneous, ONCE, 1 dose, Fri01/05/19 at 1015, In CVPP NOTE: This is a HIGH ALERT Medication., 01/15/2019 8:09 PM CDT 5,000 Units Abdominal Tissue heparin (porcine) PF syringe 5,000 Units Given 5,000 Units, Subcutaneous, THREE TIMES DAILY, First dose on Fri01/05/19 at 2100, Until Discontinued, First dose given post-op at 2100. NOTE: This is a HIGH ALERT Medication., For NON-epidural patients, 5,000 Units Abdominal Tissue Given 01/15/2019 8:58 AM CDT 5,000 Units Abdominal Tissue Given 01/14/2019 9:52 PM CDT HEPARIN, PORCINE (PF) 5,000 UNIT/0.5 ML IJ SYRG (Cabinet Override) NOW, 1 dose, Fri01/05/19 at 1015, Created by cabinet override NOTE: This is a HIGH ALERT Medication., Created by cabinet override, 01/02/2019 11:00 AM CDT 65 mL iohexol (OMNIPAQUE-350) 350 mg/mL Given injection 65 mL 65 mL, Intravenous, ONCE, 1 dose, 01/02/19 at 1100, NOTE: This is a HIGH ALERT Medication., 01/03/2019 4:30 PM CDT 0.5 mg ipratropium bromide (ATROVENT) 0.02 % Given nebulizer solution 0.5 mg 0.5 mg, Inhalation, RT EVERY 4 HOURS AND PRN, First dose on Fri01/01/19 at 2000, Until Discontinued, ADMINISTERED BY RT, 0.5 mg Given 01/03/2019 12:56 PM CDT 0.5 mg Given 01/03/2019 9:06 AM CDT 01/05/2019 5:17 PM CDT 250 mL 999 mL/hr lactated ringers infusion Given - New 500 mL, 250 mL, Intravenous, at 999 Bag mL/hr, BOLUS, 1 dose, Fri01/05/19 at 1630 01/05/2019 9:49 PM CDT 400 mL 50 mL/hr lactated ringers infusion Given - New 1,000 mL, 400 mL, Intravenous, at 50 Bag mL/hr, CONTINUOUS, Starting Fri01/05/19 at 2115, Until Fri01/07/19 at 2114 01/05/2019 10:45 PM CDT 125 mL lactated ringers infusion Bolus from 500 mL, 125 mL, Intravenous, BOLUS, 1 Bag dose, Fri01/05/19 at 2245 01/06/2019 2:30 AM CDT 125 mL lactated ringers infusion Given - New 500 mL, 125 mL, Intravenous, BOLUS, 1 Bag dose, Fri01/06/19 at 0230 01/08/2019 2:56 PM CDT 250 mL 100 mL/hr lactated ringers infusion Given - New 1,000 mL, 250 mL, Intravenous, at 100 Bag mL/hr, CONTINUOUS, Starting Fri01/08/19 at 1315, Until Fri01/08/19 at 1700 01/13/2019 5:59 PM CDT 500 mL 100 mL/hr lactated ringers infusion Given - New 1,000 mL, 500 mL, Intravenous, at 100 Bag mL/hr, BOLUS, 1 dose, Fri01/13/19 at 1630 01/13/2019 9:08 AM CDT 50 mL lidocaine 1 % (10mg/mL) injection 50 mL Given 50 mL, SEE ADMIN INSTRUCTIONS, ONCE, 1 dose, Fri01/13/19 at 0830, This is for CTS BACK GRINDER to administer via chest tube before glucose pleurodesis., 01/04/2019 8:35 PM CDT 535 mg magnesium chloride (MAG DELAY) tablet Given 535 mg 535 mg, Oral, TWICE DAILY, 4 doses, First dose on Fri01/03/19 at 0900, Last dose on Fri01/04/19 at 2100, Each 535mg delivers 64mg elemental magnesium., 535 mg Given 01/04/2019 8:37 AM CDT 535 mg Given 01/03/2019 9:30 PM CDT 01/05/2019 2:48 PM CDT 1 g 100 mL/hr magnesium sulfate 1 g/D5W 100 mL IVPB Given - New 1 g, Intravenous, 100 mL, Administer Bag over 1 Hours, ONCE, 1 dose, Fri01/05/19 at 1445, Each 1gm delivers 8.1 mEq Magnesium., milk of magnesia (CONC) oral suspension 10 mL 10 mL, Oral, DAILY PRN, Starting Fri01/05/19 at 1234, Until 01/16/19 at 1359, Constipation PO, May give per NG tube. 10 mL CONC=30 mL MOM, ondansetron (ZOFRAN) injection 4-8 mg 4-8 mg, Intravenous, EVERY 6 HOURS PRN, Starting Fri01/05/19 at 1216, Until 01/16/19 at 1359, Nausea/Vomiting Injectable 01/06/2019 3:48 PM CDT 4 mg ondansetron (ZOFRAN) tablet 4-8 mg Given 4-8 mg, Oral, EVERY 6 HOURS PRN, Starting Fri01/05/19 at 1216, Until 01/16/19 at 1359, Nausea/Vomiting PO, (May use for PO or NG), 01/12/2019 2:27 PM CDT 5 mg oxyCODONE (ROXICODONE) oral solution Given 5-10 mg 5-10 mg, Per NG tube, EVERY 4 HOURS PRN, Starting Fri01/05/19 at 1441, Until Fri01/15/19 at 1448, Pain PO 10 mg Given 01/11/2019 11:51 AM CDT 10 mg Given 01/11/2019 5:00 AM CDT oxyCODONE (ROXICODONE, OXY-IR) tablet 5-10 mg 5-10 mg, Oral, EVERY 4 HOURS PRN, Starting Fri01/15/19 at 1448, Until 01/16/19 at 1359, Pain PO 01/07/2019 9:52 AM CDT 17 g polyethylene glycol 3350 (MIRALAX) Given packet 17 g 17 g, Oral, TWICE DAILY, First dose on Fri01/05/19 at 1230, Until Discontinued, 8.5 GRAMS=0.5 PACKET 17 GRAMS=1 PACKET 34 GRAMS=2 PACKETS, 17 g Given 01/06/2019 8:52 PM CDT 17 g Given 01/06/2019 8:29 AM CDT potassium chloride in water IVPB 10 mEq 10 mEq, Intravenous, 50 mL, Administer over 60 Minutes, NEEDED, Starting Fri01/05/19 at 1216, Until 01/16/19 at 1359, See admin instructions, Use tablet or suspension if patient tolerating PO; use IV if not tolerating PO. It urine output <30 mL/hr or SCr >2 mg/dL, check with physician prior to giving K+ replacement. - For K+ 4.0-4.3, give potassium chloride 10 mEq IV over 1 hour* - For K+ 3.5-3.9, give potassium chloride 20 mEq IV over 2 hours* - For K+ 3.0-3.4, give potassium chloride 30 mEq IV over 3 hours* - For K+ <3, give potassium chloride 40 mEq IV over 4 hours* - *May increase rate to 20 mEq/hr if patient has central line - Check K+ 1 hour after end of each replacement dose. Follow K+ replacement orders based on result. NOTE: This is a HIGH ALERT Medication., 01/06/2019 3:34 AM CDT 40 mEq potassium chloride oral solution 20-40 Given mEq 20-40 mEq, Per NG tube, NEEDED, Starting Fri01/05/19 at 1216, Until 01/16/19 at 1359, Other..., See admin instructions, If urine output <30 mL/hr or SCr >2 mg/dL, check with physician prior to giving K+ replacement. - For K+ 4.0-4.3, give potassium chloride 20 mEq PO/NG x 1 dose - For K+ 3.5-3.9, give potassium chloride 40 mEq PO/NG x 1 dose - For K+ <3.5, give potassium chloride 40 mEq PO/NG every 4 hours x 2 doses - Check K+ in the AM if potassium >=3.5 and replacement given - Check K+ 4 hours after last replacement dose given if K+ <3.5, then repeat replacement orders if needed. , 01/11/2019 9:11 AM CDT 20 mEq potassium chloride SR (K-DUR) tablet Given 20-40 mEq 20-40 mEq, Oral, NEEDED, Starting Fri01/05/19 at 1216, Until 01/16/19 at 1359, Other..., See admin instructions, If urine output <30 mL/hr or SCr >2 mg/dL, check with physician prior to giving K+ replacement. - For K+ 4.0-4.3, give potassium chloride 20 mEq PO/NG x 1 dose - For K+ 3.5-3.9, give potassium chloride 40 mEq PO/NG x 1 dose - For K+ <3.5, give potassium chloride 40 mEq PO/NG every 4 hours x 2 doses - Check K+ in the AM if potassium >=3.5 and replacement given - Check K+ 4 hours after last replacement dose given if K+ <3.5, then repeat replacement orders if needed. , 40 mEq Given 01/10/2019 6:52 AM CDT 20 mEq Given 01/08/2019 6:55 AM CDT 01/06/2019 2:21 AM CDT 30 mcg/kg/min 7.6 mL/hr propofol (DIPRIVAN) 10 mg/mL IV infusion Dose/Rate 5-50 mcg/kg/min Change 42 kg (1.26-12.6 mL/hr, rounded to 1.3-12.6 mL/hr) 100 mL, at 1.3-12.6 mL/hr, Intravenous, TITRATE DIRECTED , Starting Fri01/05/19 at 1245, Until Fri01/06/19 at 0857, -Initiate at 10 mcg/kg/min (No loading dose) -Titrate to keep: RASS of 0 to -2- -Increase in 10 mcg/kg/min increments every 1 minute to achieve goal sedation level. -Call physician if maintenance exceeds 50 mcg/kg/min -Taper agent continuously to lowest effective dose to achieve desired level of sedation keeping patient calm and able to participate in care. propofol (DIPRIVAN) 1000mg/100mL injection NOTE: This is a HIGH ALERT Medication., 35 mcg/kg/min 8.8 mL/hr Given - New Bag 01/06/2019 2:18 AM CDT 35 mcg/kg/min 8.8 mL/hr Dose/Rate Change 01/06/2019 1:23 AM CDT 01/06/2019 8:29 AM CDT 20 mL senna/docusate (SENOKOT-S) solution 20 Given mL 20 mL, Per NG tube, TWICE DAILY, First dose on Fri01/05/19 at 1230, Until Discontinued, Hold for loose stools. Note: 10 mL is equivalent to 1 senna/docusate tablet, 20 mL Given 01/05/2019 2:22 PM CDT 01/11/2019 8:19 PM CDT 2 tablets senna/docusate (SENOKOT-S) tablet 2 Given tablet 2 tablet, Oral, TWICE DAILY, First dose on Fri01/05/19 at 1230, Until Discontinued, Hold for loose stools, 2 tablets Given 01/11/2019 9:12 AM CDT 2 tablets Given 01/10/2019 8:38 PM CDT 01/05/2019 2:38 PM CDT 20 mL/hr sodium chloride 0.9 % infusion Given - New 1,000 mL, Intravenous, at 20 mL/hr, Bag CONTINUOUS, Starting Fri01/05/19 at 1230, Until Fri01/05/19 at 2112 SODIUM CHLORIDE 0.9 % IV SOLP (Cabinet Override) NOW, 1 dose, Fri01/05/19 at 0930, Created by cabinet override, Created by cabinet override, 01/16/2019 8:49 AM CDT 15 mL sodium chloride 3 % nebulizer solution Given Inhalation, RT TWICE DAILY, First dose on Fri01/12/19 at 1800, Until Discontinued, When administered by RT, will be per RT policy., 1 mL Given 01/15/2019 8:57 PM CDT 15 mL Given 01/15/2019 8:42 AM CDT 01/02/2019 11:00 AM CDT 50 mL sodium chloride PF 0.9% injection 50 mL Given 50 mL, Intravenous, ONCE, 1 dose, 01/02/19 at 1100, DO NOT SEND this medication unless it is requested. This med is usually available in floor stock., Intra-procedure (IR) 01/16/2019 8:49 AM CDT 100 mg thiamine mononitrate tablet 100 mg Given 100 mg, Oral, DAILY, First dose on Fri01/01/19 at 1945, Until Discontinued 100 mg Given 01/15/2019 8:58 AM CDT 100 mg Given 01/14/2019 9:06 AM CDT 01/16/2019 8:48 AM CDT 1 capsule tiotropium (SPIRIVA) capsule for inhaler Given 1 capsule 1 capsule, Inhalation, RT DAILY, First dose on 01/03/19 at 1745, Until Discontinued, When administered by RT, will be per RT policy. NOTES: Administer immediately after opening blister foil pouch. Each capsule is meant to deliver 2 inhalations (1 cap=2 inhalations)., 1 capsule Given 01/15/2019 8:42 AM CDT 1 capsule Given 01/14/2019 8:06 AM CDT 01/12/2019 11:46 PM CDT 50 mg traMADol (ULTRAM) tablet 50-100 mg Given 50-100 mg, Oral, EVERY 6 HOURS PRN, Starting 01/12/19 at 1521, Until 01/16/19 at 1359, Pain PO 50 mg Given 01/12/2019 9:38 PM CDT documented in this encounter
--- OUTSIDE RECORDS SUMMARY | 2019-01-23 09:16 | XMS REPORT | Encounter Summary ---
Author Author [facility] Organization [facility] Address Unknown Phone Unavailable Care Team Providers Care Lead Driver Name Role Phone No Pcp, Na PCP Unavailable Reason for Visit * Auth/Cert Referred By Contact Referred To Contact Status Reason Specialty Diagnoses / Procedures Diagnoses Acute respiratory failure with hypoxia (HCC) Respiratory Distress Encounter Details Care Team Description Date Type Department Alirio Cuevas MD [address] [facility] [id number] [place] [address] RIGHT VIDEO ASSISTED THORACOSCOPY WITH MECHANICAL PLEURODESIS 01/05/[address] [facility] - [facility] OR [address] [place] [address] Social History Date Tobacco Use Types Packs/Day [...] Course: Yun Booker was transferred to [facility] 01/01/19 for spontaneous pneumothorax secondary to bullae [...] rest of her inpatient stay. The patient's overa ll hospital course was uneventful. She increased her [...] oxygen and is being discharged with home [facility] care and oxygen orders. This was all arranged by our case management and [facility] work team members. She will be discharged [...] unless instructed to do so by your he alth care team. *Cover incisions with a clean, [...] Medicine and Cardiovascular and Thoracic Surgery o ffice located by the main entrance. Provider ALIRIO CUEVAS [[id number]] Location [facility] Appointment date: 01/27/2019 Appointment time: 2:00 [...] or concerns regarding your hospital stay. Call [phone] Discharging attending physician: ALIRIO CUEVAS [[id number]] Chest Tube Nursing Home care instructions: FOR MARINATOR ONLY: *The tube must be attached to [...] or concerns regarding your hospital stay, call [phone]. Discharging attending physician: ALIRIO CUEVAS [[id number]] Regular Diet You have no dietary restriction. Please continue with a healthy balanced diet. Chest Tube Nursing Home care instructions: Continue chest tubes with attachment to Heimlich valve which is then connected t o the leukins trap. Empty leukins trap as needed. FOR MARINATOR ONLY: *If you have a chest tube, [...] oom. Return Appointment [facility] Provider ALIRIO CUEVAS [[id number]] Appointment date: 01/27/2019 Appointment time: 3:00 PM [...] needing follow up: Chest tubes Oxygen Signed: Eva Shelton, HEALTHCARE SPECIALIST-DIRECTOR PERIOPERATIVE-C 01/07/2019 cc: Primary Care Physician: Obed Zelaya [...] RIGHT VIDEO ASSISTED THORACOSCOPY WITH MECHANICAL PLEURODESIS: 88778 (CPT) THORACOTOMY WITH EXPLORATION, WITH CREATION OF PNEUMO-PERITONEUM: 55226 (CPT) POD #: 11 SUBJECTIVE: Resting in [...] Tylenol. CV SR 70-90s, SBP 115-130s, no SENIOR WEB APPLICATIONS DEVELOPER cardiac medications. Resp Daily CXR lungs expanded, [...] Saenz DO General Surgery PGY-3 * Dorothy Doe, ELIAS - 01/16/2019 5:34 AM CDT Assumed patient care at 1900 VS stable, SR/ ST c ambulation on tele 1-3L NC at rest, 6 L NC with ambulation Adequate urine output -BM this shift CT x 2 both to heimlich valves, dressings CD/I No other concerns at this time, will continue to monitor * Claudia Last, ELIAS - 01/15/2019 6:37 PM CDT Assumed pt [...] t o night RN. * Edwardo Joseph, - 01/15/2019 3:19 PM CDT RT Adult [...] Moderate Triceps Muscle Wasting: Yes Mild Clavicle, Mormon, Deltoid Edema: No Malnutrition Interventions: Encouraged good PO intakes of meals and supplements Comments: 73 yo F with COPD, bullous emphysema s/p PRICILLA bullectomy and parital pneumonectom y (1977), who was recently admitted to [facility] in [place], [place] (~5 wks ago) with acute chest pain, found to have spontaneous right pneumothorax after bullae rupture, s/p CTX with Heimlich Valve; treated for PNA. (discharged 12/21/18) She was re-ho spitalized there 01/01/19 after her initial stay with worsening hypoxia and persi stent pneumothorax. Transferred to [facility] that same day for CTS evaluation. Pt n ow s/p VAT with mechanical pleurodesis, s/p thoracotomy with exploration, creati on of pneumo-peritoneum on 01/05.Extubated 01/06 and diet advanced to regular. [facility] reports good tolerance of diet. Continues to [...] Partially met;Ongoing Matilde Ayala RD, TI Pager: [phone] * Cate Mackay, PT - 01/15/2019 10:47 [...] oximetry. Therapist: RT Aaron * Eva Shelton APRN-DIRECTOR PERIOPERATIVE - 01/15/2019 8:08 AM CDT CARDIOTHORACIC SURGERY DAILY PROGRESS NOTE PROCEDURE: RIGHT VIDEO ASSISTED THORACOSCOPY WITH MECHANICAL PLEURODESIS: 35803 (CPT) THORACOTOMY WITH EXPLORATION, WITH CREATION OF PNEUMO-PERITONEUM: 80651 (CPT) POD #: 10 SUBJECTIVE: Resting in [...] Tylenol. CV SR 70-90s, SBP 115-130s, no SENIOR WEB APPLICATIONS DEVELOPER cardiac medications. Resp Daily CXR lungs expanded, [...] the past 24 hour(s)). ISAIAS Gardner-C Pager [phone] * Ada Denny RN - 01/15/2019 5:51 AM CDT Assumed care [...] leted and documented per flowsheet. * Claudia Last RN - 01/14/2019 6:30 PM CDT Assumed pt [...] coleman s not feel short of breath. PHANI Velasquez at bedside. 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[employer]) Psychosocial Status: Willing and Cooperative to Participate [...] Understanding Goal Formulation: With Patient Therapist:Ember Davila MA L/CCC-[employer] Voalte: [id number] Date:01/14/2019 * Jana Rabago OT - 01/14/2019 3:09 PM CDT OCCUPATIONAL THERAPY PROGRESS/DISCHARGE NOTE Patient Name: Yun Booker Room/Bed: [place] [address] Admitting Diagnosis: Respiratory Distress Mobility Progressive Mobility Level: Walk in hallway Distance Walked (feet): 200 ft Level of Assistance: Stand by assistance Assistive Device: Walker Time Tolerated: 11-30 minutes Activity Limited By: Patient request to stop Subjective Pertinent Dx per Physician: h/o COPD, bullous emphysema s/p PRICILLA bullectomy and p artial pneumonectomy (1977) who recently was admitted in [place] with a spontanou s RIGHT pneumothorax from [...] Bars in Shower Prior Function Level Of [place]: Independent with ADLs and functional transfers;Independen t with homemaking w/ ambulation Lives With: Alone Other Function Comments: Pt reports very close with family- daughters and grandd aughters check in on her and available to [...] Equipment: Walker with wheels Therapist: RITO Whittaker/Violetta [id number] Date: 01/14/2019 * Dedra Hurtado - 01/14/2019 [...] pneumonectomy (1977) who recently was admitted in [place] with a spontan ous RIGHT pneumothorax from [...] RIGHT VIDEO ASSISTED THORACOSCOPY WITH MECHANICAL PLEURODESIS: 11602 (CPT) THORACOTOMY WITH EXPLORATION, WITH CREATION OF PNEUMO-PERITONEUM: 93947 (CPT) POD #: 9 SUBJECTIVE: Resting in [...] Tylenol. CV SR 70-90s, SBP 115-130s, no SENIOR WEB APPLICATIONS DEVELOPER cardiac medications. Resp Daily CXR lungs expanded, [...] Range Color,UA YELLOW Turbidity,UA CLEAR CLEAR-CLEAR Specific [place]-Urine 1.008 1.003 - 1.035 pH,UA 7.0 5.0 [...] >60 >60 mL/min eGFR >60 >60 mL/min ISAIAS Gardner-C Pager [phone] * Ada Denny RN - 01/14/2019 6:04 [...] lb 3.2 oz) Height: DINORA Engle pgr [phone] Phone [phone] * Dedra Hurtado - 01/13/2019 1:47 PM CDT PHYSICAL THERAPY PROGRESS NOTE MOBILITY: Progressive Mobility Level: Walk in hallway Distance Walked (feet): 160 ft Level of Assistance: Assist X1 Assistive Device: Walker Time Tolerated: 0-10 minutes Activity Limited By: Shortness of air SUBJECTIVE: Significant hospital events: h/o COPD, bullous emphysema s/p PRICILLA bullectomy and partial pneumonectomy (1977) who recently was admitted in [place] with a spontan ous RIGHT pneumothorax from [...] Dedra Hurtado Date: 01/13/2019 * Eva Shelton APRN-DIRECTOR PERIOPERATIVE - 01/13/2019 8:49 AM CDT CTS Update [...] lb 3.2 oz) Height: DINORA Engle pgr [phone] Phone [phone] * Eva Shelton APRN-NP - 01/13/2019 7:24 AM CDT CARDIOTHORACIC SURGERY DAILY PROGRESS NOTE PROCEDURE: RIGHT VIDEO ASSISTED THORACOSCOPY WITH MECHANICAL PLEURODESIS: 57264 (CPT) THORACOTOMY WITH EXPLORATION, WITH CREATION OF PNEUMO-PERITONEUM: 82112 (CPT) POD #: 8 SUBJECTIVE: denies any [...] Tylenol. CV SR 70-90s, SBP 120s, no SENIOR WEB APPLICATIONS DEVELOPER cardiac medications. Resp Daily CXR lungs expanded, [...] the past 24 hour(s)). ISAIAS Gardner-C Pager [phone] * Ada Denny, ELIAS - 01/13/2019 7:09 AM CDT Assumed care [...] CT #2: 40 mL * Jordin Taylor, SENIOR WEB APPLICATIONS DEVELOPER - 01/12/2019 2:40 PM CDT PHYSICAL THERAPY PROGRESS NOTE MOBILITY: Progressive Mobility Level: Walk in hallway Distance Walked (feet): 200 ft Level of Assistance: Assist X1 Assistive Device: Walker Time Tolerated: 11-30 minutes Activity Limited By: Shortness of air SUBJECTIVE: Significant hospital events: h/o COPD, bullous emphysema s/p PRICILLA bullectomy and partial pneumonectomy (1977) who recently was admitted in [place] with a spontan ous RIGHT pneumothorax from [...] to assess for equipment needs. Therapist: Jordin Taylor, SENIOR WEB APPLICATIONS DEVELOPER Date: 01/12/2019 * Jana Rabago, OT - 01/12/2019 2:40 PM CDT OCCUPATIONAL THERAPY PROGRESS NOTE Patient Name: Yun Booker Room/Bed: 412/ Admitting Diagnosis: Respiratory Distress Mobility Progressive Mobility Level: Walk in hallway Distance Walked (feet): 175 ft Level of Assistance: Assist X1 Assistive Device: Walker Time Tolerated: 11-30 minutes Activity Limited By: Shortness of air Subjective Pertinent Dx per Physician: h/o COPD, bullous emphysema s/p PRICILLA bullectomy and p artial pneumonectomy (1977) who recently was admitted in [place] with a spontanou s RIGHT pneumothorax from [...] Bars in Shower Prior Function Level Of [place]: Independent with ADLs and functional transfers;Independen t with homemaking w/ ambulation Lives With: Alone Other Function Comments: Pt reports very close with family- daughters and grandd aughters check in on her and available to [...] Equipment: Walker with wheels Therapist: RITO Whittaker/Violetta [id number] Date: 01/12/2019 * Marcy Carey, RT - 01/12/2019 2:00 PM CDT RT [...] Moderate Triceps Muscle Wasting: Yes Mild Clavicle, Mormon, Deltoid Edema: No Malnutrition Interventions: Encouraged good PO intakes of meals and supplements Comments: 73 yo F with COPD, bullous emphysema s/p PRICILLA bullectomy and parital pneumonectom y (1977), who was recently admitted to [facility] in [place], [place] (~5 wks ago) with acute chest pain, found to have spontaneous right pneumothorax after bullae rupture, s/p CTX with Heimlich Valve; treated for PNA. (discharged 12/21/18) She was re-ho spitalized there 01/01/19 after her initial stay with worsening hypoxia and persi stent pneumothorax. Transferred to [facility] that same day for CTS evaluation. Pt n ow s/p VAT with mechanical pleurodesis, s/p thoracotomy with exploration, creati on of pneumo-peritoneum on 01/05.Extubated 01/06 and diet advanced to regular. Pat lynnette reports good tolerance of diet, although she [...] Status: Ongoing Matilde Ayala RD, TI Pager: [phone] * Eva Shelton APRN-DIRECTOR PERIOPERATIVE - 01/12/2019 6:51 AM CDT CARDIOTHORACIC SURGERY DAILY PROGRESS NOTE PROCEDURE: RIGHT VIDEO ASSISTED THORACOSCOPY WITH MECHANICAL PLEURODESIS: 33658 (CPT) THORACOTOMY WITH EXPLORATION, WITH CREATION OF PNEUMO-PERITONEUM: 65463 (CPT) POD #: 7 SUBJECTIVE: denies any new issues. Overnight events: None. ASSESSMENT: Active Hospital Problems Diagnosis Pneumothorax on right Severe malnutrition (HCC) On mechanically assisted ventilation (HCC) Other emphysema (HCC) Acute respiratory failure with hypoxia (HCC) Bullous emphysema with collapse (HCC) PLAN: Neuro Alert and oriented. Continue PRN oxycodone with scheduled Tylenol. CV SR 70-90s, SBP 120-130s, no SENIOR WEB APPLICATIONS DEVELOPER cardiac medications. Resp Daily CXR lungs expanded. Extubated 5/22 a.m, is on 2-3lpm O2 at [facility]. Wean O2 as able. Continue IS, aggressive [...] Range Magnesium 1.8 1.6 - 2.6 mg/dL ISAIAS Gardner-C Pager [phone] * Cate Rose RN - 01/12/2019 6:32 [...] I may plan for glucose pleurodesis. * Sereg Hoang MD - 01/11/2019 7:37 AM CDT CARDIOTHORACIC SURGERY DAILY PROGRESS NOTE PROCEDURE: RIGHT VIDEO ASSISTED THORACOSCOPY WITH MECHANICAL PLEURODESIS: 86651 (CPT) THORACOTOMY WITH EXPLORATION, WITH CREATION OF PNEUMO-PERITONEUM: 48380 (CPT) POD #: 6 SUBJECTIVE: denies any new issues. Overnight events: None. ASSESSMENT: Active Hospital Problems Diagnosis Pneumothorax on right Severe malnutrition (HCC) On mechanically assisted ventilation (HCC) Other emphysema (HCC) Acute respiratory failure with hypoxia (HCC) Bullous emphysema with collapse (HCC) PLAN: Neuro Alert and oriented. Continue PRN oxycodone with scheduled Tylenol. CV SR 70-80s, BP 130s, no SENIOR WEB APPLICATIONS DEVELOPER cardiac medications. Resp Daily CXR lungs up. [...] - 2.6 mg/dL Serge Hoang MD Pager [phone] * Trey Rolon RN - 01/11/2019 6:23 [...] RIGHT VIDEO ASSISTED THORACOSCOPY WITH MECHANICAL PLEURODESIS: 17948 (CPT) THORACOTOMY WITH EXPLORATION, WITH CREATION OF PNEUMO-PERITONEUM: 89542 (CPT) POD #: 5 SUBJECTIVE: coughing up [...] Tylenol. CV SR 70-80s, BP 130s, no SENIOR WEB APPLICATIONS DEVELOPER cardiac medications. Resp Daily CXR pending Extubated 5 a.m, is on 1-2lpm O2. Wean O2 [...] - 2.6 mg/dL Serge Hoang MD Pager [phone] * Trey Rolon RN - 01/10/2019 6:31 [...] transition to a Heimlich valve. * Trey Rolon RN - 01/09/2019 6:13 AM CDT Assumed [...] RIGHT VIDEO ASSISTED THORACOSCOPY WITH MECHANICAL PLEURODESIS: 99444 (CPT) THORACOTOMY WITH EXPLORATION, WITH CREATION OF PNEUMO-PERITONEUM: 83502 (CPT) POD #: 4 SUBJECTIVE: resting comfortably [...] Tylenol. CV SR 70s, BP 120s, no SENIOR WEB APPLICATIONS DEVELOPER cardiac medications. Resp Daily CXR bedside interpretation [...] - 2.6 mg/dL Serge Hoang MD Pager [phone] * Claudia Last RN - 01/08/2019 6:41 [...] pneumonectomy (1977) who recently was admitted in [place] with a spontan ous RIGHT pneumothorax from [...] arrives. Therapist: Dedra Hurtado Date: 01/08/2019 * JulioEmanuel Eva Patel, HEALTHCARE SPECIALIST-DIRECTOR PERIOPERATIVE - 01/08/2019 12:33 PM CDT CARDIOTHORACIC SURGERY DAILY PROGRESS NOTE PROCEDURE: RIGHT VIDEO ASSISTED THORACOSCOPY WITH MECHANICAL PLEURODESIS: 02482 (CPT) THORACOTOMY WITH EXPLORATION, WITH CREATION OF PNEUMO-PERITONEUM: 27582 (CPT) POD #: 3 SUBJECTIVE: resting comfortably in bed Overnight events: None. ASSESSMENT: Active Hospital Problems Diagnosis Pneumothorax on right Severe malnutrition (HCC) On mechanically assisted ventilation (HCC) Other emphysema (HCC) Acute respiratory failure with hypoxia (HCC) Bullous emphysema with collapse (HCC) PLAN: Neuro Alert and oriented. Continue PRN oxycodone with scheduled Tylenol. CV SR 70-80s, BP 120s, no SENIOR WEB APPLICATIONS DEVELOPER cardiac medications. Resp Daily CXR bedside interpretation: [...] Range Magnesium 1.9 1.6 - 2.6 mg/dL Eva Shelton APRN-PHANI-C Pager [phone] * Jessica Gaona, RT - 01/08/2019 10:08 [...] voiced at this time. Call light within laura ch. Assessments completed and documented per flowsheet. * Gwen Casey, ELIAS - 01/07/2019 5:57 PM CDT Assessments complete [...] after scheduled bowel regimen admin this AM. 09 Team notified at [facility] that pt continued to have low urine output overnigh t. Bladder scan 78. Orders to encourage fluids. [address] Card[address] notified that pt has had two unmeasured occurrences today c loose stools, missed hat, not long streams. Fluids encouraged today but intake m inimal. Orders to continue to monitor. Call light within reach, will continue to monitor until transferring care to [facility] shift RN. * Jana Rabago OT - 01/07/2019 2:45 PM CDT OCCUPATIONAL THERAPY PROGRESS NOTE Patient Name: Yun Booker Room/Bed: HC412/01 Admitting Diagnosis: Respiratory Distress Mobility Progressive Mobility Level: Walk in room Distance Walked (feet): 35 ft Level of Assistance: Stand by assistance Assistive Device: Walker Time Tolerated: 11-30 minutes Activity Limited By: Fatigue;Shortness of air Subjective Pertinent Dx per Physician: h/o COPD, bullous emphysema s/p PRICILLA bullectomy and p artial pneumonectomy (1977) who recently was admitted in [place] with a spontanou s RIGHT pneumothorax from [...] outside of shower) Prior Function Level Of [place]: Independent with ADLs and functional transfers;Independen t with homemaking w/ ambulation Lives With: Alone 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 Patient on wall suction for therapy [...] Dedra Hurtado Date: 01/07/2019 * Eva Shelton, HEALTHCARE SPECIALIST-DIRECTOR PERIOPERATIVE - 01/07/2019 7:22 AM CDT CARDIOTHORACIC SURGERY DAILY PROGRESS NOTE PROCEDURE: RIGHT VIDEO ASSISTED THORACOSCOPY WITH MECHANICAL PLEURODESIS: 26546 (CPT) THORACOTOMY WITH EXPLORATION, WITH CREATION OF PNEUMO-PERITONEUM: 12512 (CPT) POD #: 2 SUBJECTIVE: resting comfortably in bed Overnight events: None. ASSESSMENT: Active Hospital Problems Diagnosis Pneumothorax on right Severe malnutrition (HCC) On mechanically assisted ventilation (HCC) Other emphysema (HCC) Acute respiratory failure with hypoxia (HCC) Bullous emphysema with collapse (HCC) PLAN: Neuro Alert and oriented. Continue PRN oxycodone with scheduled Tylenol. CV SR 70-80s, BP 120s, no SENIOR WEB APPLICATIONS DEVELOPER cardiac medications. Resp Daily CXR bedside interpretation: lungs expanded, thoracostomy tube s in place. Will await radiology report. Extubated 5/22 a.m, is on 1-2lpm O2. Co ntinue [...] Ref Range PH-ART-POC 7.38 7.35 - 7.45 HTN1-VEZ-KMF 44 35 - 45 MMHG PO2-ART-POC 123 (H) 80 - 100 MMHG Base Ex-ART-POC 1.0 MMOL/L O2 Sat-ART-POC 99.0 95 - 99 % Llgosiddghs-COQ-WIL 26.1 21 - 28 MMOL/L BASIC METABOLIC [...] 1.6 - 2.6 mg/dL ISAIAS Gardner-C Pager [phone] * Ada Denny RN - 01/07/2019 6:37 AM CDT Assumed [...] Both CT have air leaks. Last BM SENIOR WEB APPLICATIONS DEVELOPER. Marginal UOP overnight. HFR bundle in place. No other needs voiced at this time. Call light within reach. Assessments compl eted and documented per flowsheet. * Ada Denny RN - 01/06/2019 11:58 PM CDT Patient arrived to room #412 via bed accompanied by RN. Patient transferred to [facility] bed with assistance. Bedside safety checks completed. [...] VSS per pt cheng nds. * Sara Urban RT - 01/06/2019 9:15 PM CDT RT [...] complete Renal: stable Heme: stable Endo: Modified Krebs Insulin Protocol Prophylaxis: HOB>40, PPI, SQH Disposition/Family: [...] Respiratory Meds:acetaminophen Q4H PRN, alum/mag hydroxide/simeth Q4H NM N, bisacodyl QDAY PRN, bupivacaine 0.5%/EPINEPHrine 1:200,000 [...] time, excluding procedures today. Yancy Sloan MD Carbon Paste Mixer Operator Anesthesiology and Critical Care [phone] * Sushila Crowley, RD - 01/06/2019 4:00 [...] Moderate Triceps Muscle Wasting: Yes Mild Clavicle, Mormon, Deltoid Edema: No Malnutrition Interventions: Ordered Vanilla Magic Cup daily; Encouraged good po intake efforts and ordering protein source with each meal. Comments: 73 yo F with COPD, bullous emphysema s/p PRICILLA bullectomy and parital pneumonectom y (1977), who was recently admitted to [facility] in [place], [place] (~5 wks ago) with acute chest pain, found to have spontaneous right pneumothorax after bullae rupture, s/p CTX with Heimlich Valve; treated for PNA. (discharged 12/21/18) She was re-ho spitalized there 01/01/19 after her initial stay with worsening hypoxia and persi stent pneumothorax. Transferred to [facility] that same day for CTS evaluation. Pt [...] loss Time Frame: Throughout stay Sushila Crowley RD,[facility] *[id number] * Cate Mackay, PT - [...] pneumonectomy (1977) who recently was admitted in [place] with a spontan ous RIGHT pneumothorax from [...] Mackay PT, DPT Date: 01/06/2019 * Carley Marc OT - 01/06/2019 2:10 PM CDT OCCUPATIONAL THERAPY ASSESSMENT NOTE Patient Name: Yun Booker Room/Bed: 310/ Admitting Diagnosis: Respiratory Distress Mobility Progressive Mobility Level: Walk in room Distance Walked (feet): 50 ft Level of Assistance: Assist X1(second person for line management) Assistive Device: Hand Held Time Tolerated: 11-30 minutes Activity Limited By: Lines / Medical Devices;Nausea;Fatigue;Weakness Subjective Pertinent Dx per Physician: h/o COPD, bullous emphysema s/p PRICILLA bullectomy and p artial pneumonectomy (1977) who recently was admitted in [place] with a spontanou s RIGHT pneumothorax from [...] outside of shower) Prior Function Level Of [place]: Independent with ADLs and functional transfers;Independen t with homemaking w/ ambulation Lives With: Alone 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 Sit>stand: minimal [...] requires inpatient level of care. However, typ ical progression for patient condition would anticipate home with assistance at time of discharge. Patient Currently Requires Physical Assist With: All mobility, All home function ing ADLs, Bathing, Dressing, Toileting Therapist: Carley Marc, ANDREYR/Violetta [id number] Date: 01/06/2019 * Colette Rodriguez Osito, HEALTHCARE SPECIALIST - 01/06/2019 11:42 AM CDT Cardiothoracic Surgery Critical Care Progress Note Yun Booker Today's Date: 01/06/2019 Admission Date: 01/01/2019 LOS: 5 days POD: 1 Procedure: RIGHT VIDEO ASSISTED THORACOSCOPY WITH MECHANICAL PLEURODESIS: 02837 (CPT) THORACOTOMY WITH EXPLORATION, WITH CREATION OF PNEUMO-PERITONEUM: 29369 (CPT) Principal Problem: Pneumothorax on right Active [...] as expected. Anticipate [facility] floor [facility] today. Colette Rodriguez APRN [facility] Intensive Care Pager [phone] 01/06/2019 Subjective: HPI: Yun Booker is a 73 y.o. female with a PMH of COPD, bullous emphysema s/p PRICILLA bulectomy and partial pneumonectomy (1977). She was recently admitted to an OSH with a spontaneous right pneumothorax from bulla rupture and had a R chest tube with a heimlich valve in place. She presented to [facility] with worsening hypoxia an d persistent pneumothorax. [...] Respiratory Meds:acetaminophen Q4H PRN, alum/mag hydroxide/simeth Q4H NM N, bisacodyl QDAY PRN, bupivacaine 0.5%/EPINEPHrine 1:200,000 [...] instab ility. Laboratory: LABS: Recent Labs 01/04/19 0509 01/05/19 0531 01/05/19 1330 01/06/19 0215 NA 138 135* 131* [...] Other Diagnostic Procedures Review: Reviewed * Aron Simth RN - 01/06/2019 9:55 AM CDT Pt [...] information. Pt with decreased urine output, Travis DIRECTOR PERIOPERATIVE notifie d, LR fluids added. Chest tubes [...] abx Renal: stable Heme: stable Endo: Modified Krebs Insulin Protocol Prophylaxis: HOB>40, PPI, SQH Disposition/Family: Needs ICU __ Subjective: Yun Booekr is a 73 y.o. female. Overnight Events: [...] (DIPRIVAN) 10 mg/mL IV infusion Stopped (01/05/19 1439) sodium chloride 0.9 % infusion Stopped (01/05/19 143) PRN and Respiratory Meds:acetaminophen Q4H PRN, alum/mag hydroxide/simeth Q4H NM N, bisacodyl QDAY PRN, bupivacaine 0.5%/EPINEPHrine 1:200,000 [...] time, excluding procedures today. Yancy Sloan MD Carbon Paste Mixer Operator Anesthesiology and Critical Care [phone] * Colette Rodriguez, HEALTHCARE SPECIALIST - 01/05/2019 12:36 PM CDT Cardiothoracic Surgery Critical Care Progress Note Yun Booker Today's Date: 01/05/2019 Admission Date: 01/01/2019 LOS: 4 days POD: 0 Procedure: RIGHT VIDEO ASSISTED THORACOSCOPY WITH MECHANICAL PLEURODESIS: 66721 (CPT) THORACOTOMY WITH EXPLORATION, WITH CREATION OF PNEUMO-PERITONEUM: 56662 (CPT) Principal Problem: Pneumothorax on right Active [...] onc e extubated. Will remain intubated per DrJennifer V at least 24 hours. Chest tubes in [...] critically ill s/p mechanical pleurodesis with Dr. Alexander I have seen, personally fully evaluated, and discussed patient with the critical care attending and cardiothoracic surgeon. The patient is critically ill, I spe nt 60 minutes (excluding time spent performing procedures) providing and personamanda jackson directing critical care services including direct OR recovery, ventilator ma nagement, hemodynamic monitoring and management, lab and radiology review, medic ation review and management, fluid and electrolyte management and coordination o f care. Colette Rodriguez APRN [facility] Intensive Care Pager [phone] 01/05/2019 Subjective: HPI: Yun Booker is a 73 y.o. female with a PMH of COPD, bullous emphysema s/p PRICILLA bulectomy and partial pneumonectomy (1977). She was recently admitted to an OSH with a spontaneous right pneumothorax from bulla rupture and had a R chest tube with a heimlich valve in place. She presented to [facility] with worsening hypoxia an d persistent pneumothorax. [...] Respiratory Meds:acetaminophen Q4H PRN, alum/mag hydroxide/simeth Q4H NM N, bisacodyl QDAY PRN, bupivacaine 0.5%/EPINEPHrine 1:200,000 [...] weaning trial: N/a Laboratory: LABS: Recent Labs 01/03/1933401/04/19 05001/05/19 0531 01/05/19 1330 NA 141 138 135* [...] 3.840 -- -- -- Recent Labs 01/03/19 03301/04/19 05001/05/19 0531 01/05/19 1330 WBC 4.7 3.6* 3.8* [...] Other Diagnostic Procedures Review: Reviewed * Dedra Lui, OT - 01/05/2019 10:46 AM CDT OCCUPATIONAL THERAPY NO TREATMENT NOTE The patient was not seen due to: Patient at test/procedure in OR at this time. P er EMR, patient to transfer to CTS ICU after procedure. OT will continue to foll ow and provide formal evaluation and intervention, as appropriate. Therapist: Dedra Lui OTR/L [id number] Date: 01/05/2019 * Edwardo Gaines, PT - 01/05/2019 9:44 AM CDT PHYSICAL THERAPY NOTE Patient off the unit at OR this date. Our service will follow-up with patient to complete formal evaluation and provide treatment as appropriate. Therapist: Edwardo Gaines, PT, DPT [phone] Date: 01/05/2019 * Reina Graves RN - [...] history of pneumonectomy was a dmitted to [facility] as a transfer from [place] for non-resolving spontaneous right pneu mothorax after [...] asked on why it was tried at [place] and f tan. Denies of chest pain, [...] noted Pulses: 2+ and symmetric, all extremities EVENT STAFF:alert and oriented to PPT, No focal neurologic [...] x-ray reviewed MD Jermaine Sales Abebe MD [employer] Department of Internal Medicine, Hospitalist [phone] * Alirio Cuevas MD - 01/04/2019 5:24 PM CDT I spent 30 minutes with the patient reviewing her studies and explaining the [facility] medical situation to her. 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 At [facility] she wears 2-3 liters of oxygen and [...] feasible. She accepts the potential risks of mcfp intubation, and she is agreeable to tracheostomy [...] Johnson PT, DPT Date: 01/04/2019 * Briana Leon, OT - 01/04/2019 10:19 AM CDT OCCUPATIONAL [...] mobility and self care act ivities. Briana Leon, OTR/L [id number] * Jermaine Dean MD - 01/04/2019 6:01 AM CDT General Progress Note Admission Date: 01/01/2019 LOS: 3 days Assessment/Plan: Active Problems: Acute respiratory failure with hypoxia (HCC) Bullous emphysema with collapse (HCC) Pneumothorax on right 73-year-old male with history of chronic obstructive pulmonary disease, bullous emphysema status post left upper lobe bullectomy, history of pneumonectomy was a dmitted to as a transfer from [place] for non-resolving spontaneous right pneu mothorax after [...] noted Pulses: 2+ and symmetric, all extremities EVENT STAFF:alert and oriented to PPT, No focal neurologic [...] x-ray reviewed MD Jermaine Sales Abebe MD [employer] Department of Internal Medicine, Hospitalist [phone] * Jordin Hoyos RT - 01/03/2019 4:42 [...] PM CDT Patient arrived to room # (*4506) via wheelchair accompanied by transport. Patie nt transferred to the bed without assistance. [...] Pulmonary Disease & Critical Care Medicine Pager [phone] * Marita Cobos RT - 01/03/2019 6:26 [...] who was transferred after prolonged hospitalization in [place], [place] with spontaneous right pneumothorax after bullae [...] >Plan for 2nd chest tube placement on 01/04 AM >NPO @ Midnight >pulmonary consulted, appreciate recommendations >CTS consulted, appreciate recommendations >Continue SENIOR WEB APPLICATIONS DEVELOPER incruse, breo, albuterol prn >supplemental oxygen (3L) [...] placement in AM Garfield Arellano Pager # [phone] 01/03/2019 Subjective: No acute events overnight . Pt states sadness at prolonged hospital stay. She reports she has a few dogs at home she misses. She also has a large [employer] and business matters in [place], [place]. 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 [...] (97.6 F) (01/03 339) Pulse: 81 (01/03 510) Respirations: 18 PER MINUTE (01/03 339) SpO2: 94 % (01/03 510) O2 Delivery: Nasal Cannula (01/03 339) SpO2 Pulse: 78 (01/030) Height: 157.5 cm (62.01") (01/04 400) BP: [...] non-distended, bowel sounds + EXT: No edema/cyanosis EVENT STAFF: No focal deficits, holding eye contact, following commands, moving all extr emities without focal deficit LABS: Recent Labs 01/01/19 1635 01/02/19 0317 01/03/19 0335 NA 136* 137 141 K 3.9 3.5 4.5 CL 100 101 102 CO2 28 29 33* GAP 8 7 6 BUN 11 8 6* CR 0.46 0.40 0.44 GLU 103* 106* 106* CA 9.0 8.5 9.3 ALBUMIN 3.5 2.9* 3.4* MG 1.8 1.8 1.9 PO4 3.0 -- 3.6 Recent Labs 01/01/19 1635 01/01/19 1840 01/02/19 0317 01/03/19 0335 WBC 6.1 -- 4.4* 4.7 HGB 12.3 [...] bed accompanied by RN. [facility] without assistance. Bedside safety checks completed. Initial [...] MD - 01/02/2019 6:11 AM CDT Yun Patel Ismael Today's Date: 01/02/2019 Admission Date: 01/01/2019 LOS: 1 day Assessment/Plan: Active Problems: Acute respiratory failure with hypoxia (HCC) Bullous emphysema with collapse (HCC) Pneumothorax on right 73 yo F w/ Hx of COPD, bullous emphysema s/p PRICILLA bullectomy and partial pneumone ctomy (1977) who recently was admitted in [place] with a spontanous RIGHT pneumot horax from bulla rupture and has a RIGHT chest tube with heimlich valve in place . She presented to OSH for worsening hypoxia and was found to have persistent pn eumothorax Pulm Persistent Left Pneumothorax - occurred ~ 5 wks prior to presenting at [facility], initially managed in [place] with c hest tube and pleurodesis - possibly sec to bullous rupture - CT on left to water seal, intermittent air leak, tidaling noted - ? BPF - CTS consulted - CT chest 01/02: noted COPD - 3L NC with SpO2 mid to upper 90s - 55 pack yr hx - SENIOR WEB APPLICATIONS DEVELOPER Incruse, Breo, Albuterol - cont Advair and nebs Neuro ETOH - ~ 1 bottle wine dialy - thiamine/folate - AWAS if needed PPX: Lines: None Drains: Chest Tube(s): fs mL Prophylaxis Review: Nutrition present GI prophylaxis absent DVT prophylaxis lovenox Bowel Regimen: No PT/OT: Yes Insulin: No Quality Checklist Reviewed: Yes Disposition/Family: Continue care Carlos Enrique Maier SONDRA On Volte M3 0103 ATTESTATION I personally [...] Hospital Course 73 yo lady transferred from [facility] in [place], [place] for further mgmt of a p ersistent pneumothorax. About 5 weeks ago she presented to [place] with acute ch est pain, found a [...] this encounter H&P Notes * Eva Shelton, HEALTHCARE SPECIALIST-DIRECTOR PERIOPERATIVE - 01/05/2019 10:10 AM CDT History and [...] been fully reviewed with the patient, and yumiko moore informed consent has been obtained. Surgical site marked. Will go to CTS ICU p ost op. I have examined the patient, and there are no significant changes in their condi tion, from the previous H&P performed on 01/01/19, from CTS consult note. Eva Shelton APRN-DIRECTOR PERIOPERATIVE-C Pager [phone] * Reyna Medrano MD - 01/01/2019 4:28 PM CDT Admission History and Physical Examination Name: Yun Booker Admission Date: 01/01/2019 Assessment/Plan: Active Problems: Acute respiratory failure with hypoxia (HCC) Bullous emphysema with collapse (HCC) Pneumothorax on right Ms. Booker is a 73 yo F w/ Hx of COPD, bullous emphysema s/p PRICILLA bullectomy and pa rtial pneumonectomy (1977) who recently was admitted in [place] with a spontanous RIGHT pneumothorax from bulla [...] PRICILLA bull ectomy/partial pneumonectomy - presented to [facility] roughly 5 weeks prior with acute chest pain. Found to have spontaneous pneumothorax - s/p Thoravent without improvement and transferred to [facility] and katherine self to CTX - She was treated for PNA - Discharged 12/[address] with heimlich valve. Followed up with Pulmona solomon on 12/28 and reportedly everything was stable. - Presented to [facility] on 01/01 with worsening hypoxia and desatura tions to the 60s. - OSH CXR with RIGHT PTX and PRICILLA opacity - Received Vanc/Zosyn for suspected PRICILLA PNA - Transferred to [facility] to Thoracic Surgery evaluation - [...] has 55 pack year smoking history - SENIOR WEB APPLICATIONS DEVELOPER Incruse, Breo, Abluterol nebs BID > Switch Breo to Advair due to formulary > Albuterol Nebs PRN ## EtOH Use - Drinks ~1 bottle of a wine daily. > AWAS Fluids: No IVF Electrolytes: Replace Lytes PRN Nutrition: Regular Diet DVT PPx: Lovenox Lines/Drains: RIGHT CTX. PIV Code Status: FULL CODE Disposition: Admit to MICU Patient discussed and seen by Dr. Mitchell Arteaga, PGY3, Internal Medicine [phone] ATTESTATION Ms Booker reports that she has been dyspneic with ambulation in her home with desa turations into the 80's since discharge 10 days ago. However, both dyspnea and desats have worsened in last 3-4 days (into the 60's). No sign of infection (WBC 6, PCT 0.02), fluid overload (BNP 36). CXR with persis tent R sided PNX - working on getting CXR from [...] female who presents as tr ansfer from [facility] for hypoxic respiratory failure and persistent pneumothorax. Patient presented to [facility] roughly 5 weeks prior with acute chest pain. Found to have spontaneous pneumothorax thought to be from a bu llae rupture. s/p Thoravent without improvement and transferred to [facility] and upgrade to [facility]. She states that she received some sort [...] daily of serosanguinous fluid. She presented to [facility] on 01/01 with worsening hypoxia and desatu rations to the 60s. She was afebrile, HDS, saturating 96% on 5L. Labs were unrem arkable. OSH CXR with RIGHT PTX and PRICILLA opacity. Received Vanc/Zosyn for suspect ed PRICILLA PNA. Transferred to [facility] to Thoracic Surgery evaluation Medical [...] file Gets together: Not on file Attends jain service: Not on file Active member of [...] (01/01 1700) Temp: 37 C (98.6 F) (05/17 1629) Pulse: 90 (01/01 1700) Respirations: 29 [...] O2 Sat-Arterial 96.3 95 - 99 % Ebfkupdwayn-HVE-Ier 27.8 21 - 28 MMOL/L Pertinent radiology [...] was discussed with Dr. Gallo Hoang MD [id number] --- HPI: 73F with h/o COPD and bullous emphysema s/p PRICILLA bullectomy and partial pneumonec chandler who presented to OSH 5 weeks ago with spontaneous right pneumothorax. Ther andrew was initially placed without improvement therefore she was transferred to [facility]. A Chest tube was placed. 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 ADMISSION DATE: 01/01/2019 DAYS ADMITTED: LOS: 15 days Todays Date: 01/16/2019 Plan Faxed AVS and signed Home health orders to [facility] Interventions ? Support ? Info or Referral ? Discharge Planning ? Medication Needs ? Financial ? Legal ? Other Disposition ? Expected Discharge Date Expected Discharge Date: 01/16/19 Expected Discharge Time: 1300 ? Transportation Does the patient need discharge transport arranged?: Yes Transportation Name, Phone and Availability #1: Patient will call one of her [employer] ldren Does the patient use Medicaid Transportation?: No ? Next Level of Care (Acute Psych discharges only) ? Discharge Disposition Durable Medical Equipment No service has been selected for the patient. Destination No service has been selected for the patient. Home Care No service has been selected for the patient. Dialysis/Infusion No service has been selected for [...] Case Management Progress NoteNAME:Yun Booker MRN: [id number] :1945 AGE: 73 y.o. ADMISSION DATE: 01/01/2019 DAYS ADMITTED: LOS: 14 days Todays Date: 01/15/2019 Nurse Shut Off Worker We ekend Needs Instructions for W/E Staff: Please fax AVS to [facility] ([phone], [phone]) Teaching Needs Prior to DC: n/a Expected delivery of any needed medication/supplies/equipment: n/a Agency Expected SOC and Services Planned: n/a Plan-Anticipated DC this weekend per team. Interventions ? Support EMR and POC reviewed. ? Info or Referral ? Discharge Planning Ex Ox completed and pt needing 1L at all times and 6L with exercise. Called [facility] ([phone], [phone]) and confirmed that pt is currently on service. Confirmed pt will re quire 2 tanks to go home with. Spoke with pt and confirmed she has 1.5 tanks at home and her inogen. However, since we can not verify the inogen here she will need to use the tanks to assist her home. Pt understanding. Pt confirmed her son Earle [phone] will be the one picking her up this weekend. Called Earle (Son) and confirmed he would be able to stop by the [employer] and steel pickler two full tanks to assist his mother home upon DC. Called [facility] to confirm they will address the home concentra tor and increased O2 needs. Will fax orders to both DME company and when able. [facility] ([phone], [phone]) Update 1224- Faxed orders to both [facility] and DME provider. ? Medication Needs ? [...] able. Luz Kulkarni RN, BSN Integrated Nurse Shut Off Worker Pager [phone] * Care Plan - Claudia Last RN [...] Case Management Progress NoteNAME:Yun Booker MRN: [id number] :1945 AGE: 73 y.o. ADMISSION DATE: 01/01/2019 DAYS ADMITTED: LOS: 11 days Todays Date: 01/12/2019 Plan-Anticipate DC home with HH when medically stable for same. Interventions ? Support ? Info or Referral ? Discharge Planning Met with pt to discuss POC. Pt confirmed she is on 3L NC at night at home. Her current O2 is through [facility]. Pt has an Inogen at home and portable tanks if needed. Confirmed she could have family bring her O2 to bedside if needed upon DC. Pt confirmed she would like to continue using [facility] through [facility]. Called [facility] ([phone], [phone]) and confirmed pt was on service and would just need [facility] orders. NCM will send orders when appropriate. ? Medication [...] assistance. Luz Kulkarni RN, BSN Integrated Nurse Shut Off Worker Pager * Care Plan - Bismark Bell [...] Case Management Progress NoteNAME:Yun Booker MRN: [id number] :1945 AGE: 73 y.o. ADMISSION DATE: 01/01/2019 DAYS ADMITTED: LOS: 7 days Todays Date: 01/08/2019 Plan Pt transferred to CTS service on 01/07 for mechanical pleurodesis. Anticipate pt will remain inpt throughout the holiday . Interventions ? Support ? Info or Referral ? Discharge Planning EMR and POC reviewed Case disused in huddle this am PT rec's currently for home- No current CM needs identified at this time. Should any CM needs arise over the holiday weekend, please contact the carpet sewing machine operator and ask for the hairspring fabrication supervisor/on site RNCM or SWCM depending the need. [...] Discharge Disposition Home w assist. Reyna SEGUNDO, rn ante partum Nurse Shut Off Worker Inpatient Cardiothoracic Surgery M-[phone] O: [phone] * Care Plan - Kathy Randolph RN [...] Cuevas MD - 01/05/2019 3:02 PM CDT THE [address] [address] PATIENT NAME: YUN BOOKER MR#/PT#: [id number] OPERATIVE REPORT : 1945 DATE OF OPERATION: 01/05/2019 ROOM #: HC310 OPERATIVE REPORT SURGEON: Alirio Cuevas MD FILM VAULT SUPERVISOR SURGEON(S): Cate Ramsey MD PREOPERATIVE DIAGNOSIS: Pneumothorax. [...] ure. With the mechanical abrasion performed, two 24-Greek chest tubes were antonio alejandro into the [...] of this case. SPECIMENS REMOVED: as above MD XIMENA Lemus/Fredy Cuevas MD / Fredy [id number] cc: - Alirio Cuevas MD * Procedures [...] Implants: None Drains: None 2 separate 24 telugu chest tubes Disposition: PACU - stable ALIRIO CUEVAS MD Pager * Care Coordination-Inpatient - Digna Pizarro MD - 01/03/2019 5:15 AM CDT MICU Team (Pager: [phone]) will take calls on this patient until 8 am on 2018. MICU to call [facility] team for check out at/after 8 am on 01/03/2019 Digna Pizarro, AOD # [id number] * Care Plan - Sara Hill RN [...] falls. * Transfer - Carlos Enrique Maier APRN-NP - 01/02/2019 12:45 PM CDT In-Hospital Transfer Note Admission Diagnosis: Persistent pneumothorax Admission Date: 01/01/2019 Active Hospital Problem List: Active Problems: Acute respiratory failure with hypoxia (HCC) Bullous emphysema with collapse (HCC) Pneumothorax on right Hospital Course: 73 yo lady transferred from [facility] in [place], [place] for f urther mgmt of a persistent pneumothorax. About 5 weeks ago she presented [facility] with acute [facility] pain, found a spontaneous right pneumothorax, thought to b e from a bullae rupture. A chest tube was placed and she received chemical pleu rodesis (per pt description) and a heimlich valve was placed on the CT and was d ischarged 5/6 with the tube in place. Since then [...] Plan: home when ready ISAIAS Nguyen Pager [phone] * Advanced Care Planning/Resuscitation Status - Rubin [...] on 01/16/2019 10:45 AM. Performing Organization Address [facility] Cent[facility]ode Phone Number RAD RESULTS * BASIC METABOLIC PANEL (01/16/2019 [...] >60 >60 mL/min [facility] MAIN LAB Comment: [place] The eGFR is not validated for use in drug dosing adjustments.Continue to use estimated creatinine clearance per dosing reference text.Please contact the Clinical Pharmacist for questions. eGFR >60 >60 mL/min [facility]IN [facility] [place] Comment: The eGFR is not validated for use in drug dosing adjustments.Continue to use estimated creatinine clearance per dosing reference text.Please contact the Clinical Pharmacist for questions. Specimen Blood Performing Organization Address [facility] Centercowi Phone Number MAIN LAB [address] [place] [address] * CBC (01/16/2019 4:20 AM CDT) White [...] Phone Number MAIN LAB [address] [place] [address] * CHEST 2 VIEWS (01/15/2019 11:10 AM [...] on 01/14/2019 2:18 PM. Performing Organization Address [facility] [place] Phone Number [facility] RAD RESULTS * CHEST [...] on 01/14/2019 12:48 PM. Performing Organization Address [facility] [place] Phone Number [facility] RAD RESULTS * BASIC METABOLIC PANEL (01/14/2019 4:17 AM CDT) Sodium 136 (L) 137 - 147 MMOL/L [facility] MAIN LAB Potassium 4.4 3.5 - 5.1 MMOL/L MAIN LAB Chloride 100 98 - 110 MMOL/L MAIN LAB CO2 31 (H) 21 - 30 MMOL/L MAIN LAB Anion Gap 5 3 - 12 MAIN LAB Glucose 108 (H) 70 - 100 MG/DL MAIN LAB Blood Urea 6 (L) 7 - 25 MG/DL MAIN LAB Nitrogen Creatinine 0.38 (L) 0.4 - 1.00 MG/DL MAIN LAB Calcium 8.7 8.5 - 10.6 MG/DL MAIN LAB eGFR Non >60 >60 mL/min MAIN LAB Comment: [place] The eGFR is not validated for use in drug dosing adjustments.Continue to use estimated creatinine clearance per dosing reference text.Please contact the Clinical Pharmacist for questions. eGFR >60 >60 mL/min MAIN LAB [place] Comment: The eGFR is not validated for use in drug dosing adjustments.Continue to use estimated creatinine clearance per dosing reference text.Please contact the Clinical Pharmacist for questions. Specimen Blood Performing Organization Address City/[facility]/Zipcode Phone Number [facility] [address] [place] [address] * CBC (01/14/2019 4:17 AM CDT) White Blood 9.1 4.5 - 11.0 K/UL [facility] Cells RBC 3.30 (L) 4.0 - 5.0 M/UL [facility] Hemoglobin 11.0 (L) 12.0 - 15.0 GM/DL [facility] Hematocrit 33.6 (L) 36 - 45 % [facility] MCV 101.8 (H) 80 - [address] [facility] MCH 33.3 26 - [address] [facility] MCHC 32.7 32.0 - 36.0 G/DL [facility] RDW 14.0 11 - 15 % [facility] Platelet Count 412 (H) 150 - 400 K/UL [facility] MPV 6.9 (L) 7 - [address] [facility] Specimen Blood Performing Organization Address City/[facility]/Zipcode Phone Number [facility] [address] [place] [address] * CULTURE-URINE W/SENSITIVITY (01/13/2019 11:50 PM CDT) Battery Name URINE CULTURE MAIN LAB Specimen URINE MAIN LAB Description Special NONE [facility] MAIN LAB Requests Culture >100,000 organisms/ml MAIN LAB PSEUDOMONAS AERUGINOSA (A) Report Status FINAL MAIN LAB 01/16/2019 Organism ID >100,000 organisms/ml MAIN [...] >100,000 organisms/ml pseudomonas aeruginosa Performing Organization Address City/[facility] Centercode Phone Number MAIN LAB [address] [place] [address] * UA REFLEX CULTURE LABEL (01/13/2019 11:50 PM CDT) UA Reflex LAB LABEL MAIN LAB Culture Specimen Urine Performing Organization Address [facility] Centercode Phone Number MAIN LAB [address] [place] [address] * URINALYSIS MICROSCOPIC REFLEX TO CULTURE (01/13/2019 11:50 PM CDT) WBCs,UA 20-50 0 - 2 /HPF MAIN LAB RBCs,UA 2-10 0 - 3 /HPF MAIN LAB Comment,UA Criteria for reflex to culture MAIN LAB are WBC>10, Positive Nitrite, and/or >=+1 leukocytes. If quantity is not sufficient, an addendum will follow. MucousUA TRACE MAIN LAB Bacteria,UA FEW (A) NEG-NEG MAIN LAB Specimen Urine Performing Organization Address City/[facility] Centercode Phone Number MAIN LAB [address] [place] [phone] * URINALYSIS DIPSTICK REFLEX TO CULTURE (01/13/2019 11:50 PM CDT) Color,UA YELLOW [facility] MAIN LAB Turbidity,UA CLEAR CLEAR-CLEAR [facility] MAIN LAB Specific 1.008 1.003 - 1.035 [facility] MAIN LAB [place]-Urine pH,UA 7.0 5.0 - 8.0 [facility] MAIN [...] Acid, UA Specimen Urine Performing Organization Address City/[facility] Phone Number MAIN LAB [address] [place] [address] * CHEST SINGLE VIEW (01/13/2019 6:27 AM [...] on 01/12/2019 11:01 AM. Performing Organization Address City/[facility] Phone Number RAD RESULTS * MAGNESIUM (01/12/2019 3:59 AM CDT) [facility] Magnesium 1.8 1.6 - 2.6 mg/dL MAIN LAB Specimen Blood Performing Organization Address [facility] [facility] [place] Phone [place] MAIN LAB [address] [place] [address] * CBC (01/12/2019 3:59 AM CDT) [facility] White Blood 5.7 4.5 - 11.0 K/UL [...] LAB MPV 7.0 7 - 11 FL MAIN LAB Performing Organization Address [facility] [place] MAIN LAB [address] [place] [address] * BASIC METABOLIC PANEL (01/12/2019 3:59 AM CDT) [facility] Sodium 137 137 - 147 MMOL/L KU [...] >60 >60 mL/min [facility] MAIN LAB Comment: [place] The eGFR is not validated for use in drug dosing adjustments.Continue to use estimated creatinine clearance per dosing reference text.Please contact the Clinical Pharmacist for questions. eGFR >60 >60 mL/min [facility] MAIN LAB [place] Comment: The eGFR is not validated for use in drug dosing adjustments.Continue to use estimated creatinine clearance per dosing reference text.Please contact the Clinical Pharmacist for questions. Performing Organization Address City/State/Zipcode Phone Number [facility] MAIN LAB [address] [place] [address] * CHEST SINGLE VIEW (01/11/2019 6:36 AM [...] on 01/11/2019 9:58 AM. Performing Organization Address [facility] Phone Number [facility] RESULTS * MAGNESIUM (01/11/2019 5:03 AM CDT) [facility] Magnesium 1.8 1.6 - 2.6 mg/dL [facility] LAB Specimen Blood Performing Organization Address [facility] [place] Phone Number [facility] [address] [place] [address] * CBC (01/11/2019 5:03 AM CDT) [facility] White Blood 6.3 4.5 - 11.0 K/UL [facility] LAB Cells RBC 3.48 (L) 4.0 - 5.0 M/UL [facility] LAB Hemoglobin 11.8 (L) 12.0 - 15.0 GM/DL [facility] LAB Hematocrit 35.0 (L) 36 - 45 % [facility] LAB MCV 100.7 (H) 80 - [address] [facility] LAB MCH 33.9 26 - [address] [facility] LAB MCHC 33.7 32.0 - 36.0 G/DL [facility] LAB RDW 13.3 11 - 15 % MAIN LAB Platelet Count 388 150 - 400 K/UL [facility] LAB MPV 6.7 (L) 7 - 11 FL MAIN LAB Performing Organization Address [facility] [place] Phone Number [facility] LAB [address] [place] [address] * BASIC METABOLIC PANEL (01/11/2019 5:03 AM CDT) [facility] Sodium 134 (L) 137 - 147 MMOL/L [facility] LAB Potassium 4.1 3.5 - 5.1 MMOL/L [...] >60 >60 mL/min [facility] MAIN LAB Comment: [place] The eGFR is not validated for use in drug dosing adjustments.Continue to use estimated creatinine clearance per dosing reference text.Please contact the Clinical Pharmacist for questions. eGFR >60 >60 mL/min [facility] MAIN LAB [place] Comment: The eGFR is not validated for use in drug dosing adjustments.Continue to use estimated creatinine clearance per dosing reference text.Please contact the Clinical Pharmacist for questions. Performing Organization Address City/State/Zipcode Phone Number MAIN LAB [address] [place] [address] * CT CHEST WO CONTRAST (01/10/2019 10:03 [...] expressed in this report Finalized by Jaime Lui M.D. on 01/10/2019 10:24 AM. Dictated by [...] on 01/10/2019 10:17 AM. Performing Organization Address [facility] [place] Phone Number RAD RESULTS * MAGNESIUM (01/10/2019 4:57 AM CDT) Pathologist [facility] Magnesium 1.8 1.6 - 2.6 mg/dL MAIN LAB Specimen Blood Performing Organization Address [facility] [place] Phone Number MAIN LAB [address] [place] [address] * CBC (01/10/2019 4:57 AM CDT) [facility] White Blood 5.1 4.5 - 11.0 K/UL MAIN LAB Cells RBC 3.36 (L) 4.0 - 5.0 M/UL [facility] MAIN LAB Hemoglobin 11.1 (L) 12.0 - 15.0 GM/DL MAIN LAB Hematocrit 33.8 (L) 36 - 45 % MAIN LAB MCV 100.7 (H) 80 - 100 FL MAIN LAB MCH 33.2 26 - 34 PG MAIN LAB MCHC 33.0 32.0 - 36.0 G/DL MAIN LAB RDW 13.3 11 - 15 % [facility] MAIN LAB Platelet Count 334 150 - 400 K/UL MAIN LAB MPV 6.6 (L) 7 - 11 FL MAIN LAB Performing Organization Address [facility] [place] Phone Number MAIN LAB [address] [place] [address] * BASIC METABOLIC PANEL (01/10/2019 4:57 AM CDT) Pathologist [facility] Sodium 137 137 - 147 MMOL/L K[facility] [...] >60 >60 mL/min [facility] MAIN LAB Comment: [place] The eGFR is not validated for use in drug dosing adjustments.Continue to use estimated creatinine clearance per dosing reference text.Please contact the Clinical Pharmacist for questions. eGFR >60 >60 mL/min [facility] MAIN LAB [place] Comment: The eGFR is not validated for use in drug dosing adjustments.Continue to use estimated creatinine clearance per dosing reference text.Please contact the Clinical Pharmacist for questions. Performing Organization Address City/State/Zipcode Phone Number [facility] MAIN LAB [address] [place] [address] * CHEST SINGLE VIEW (01/09/2019 12:30 PM [...] on 01/10/2019 8:35 AM. Performing Organization Address [facility] Phone Number [facility] RESULTS * MAGNESIUM (01/09/2019 4:19 AM CDT) [facility] Magnesium 1.9 1.6 - 2.6 mg/dL MAIN LAB Specimen Blood Performing Organization Address [facility] [place] Phone Number [facility] LAB [address] [place] [address] * CBC (01/09/2019 4:19 AM CDT) [facility] White Blood 4.3 (L) 4.5 - 11.0 K/UL MAIN LAB Cells RBC 3.32 (L) 4.0 - 5.0 M/UL MAIN LAB Hemoglobin 11.1 (L) 12.0 - 15.0 GM/DL MAIN LAB Hematocrit 33.6 (L) 36 - 45 % MAIN LAB MCV 101.1 (H) 80 - 100 FL MAIN LAB MCH 33.6 26 - 34 PG MAIN LAB MCHC 33.2 32.0 - 36.0 G/DL MAIN LAB RDW 13.7 11 - 15 % MAIN LAB Platelet Count 318 150 - 400 K/UL MAIN LAB MPV 7.1 7 - 11 FL MAIN LAB Performing Organization Address [facility] [place] Phone Number [facility] LAB [address] [place] [address] * BASIC METABOLIC PANEL (01/09/2019 4:19 AM CDT) Sodium 135 (L) 137 - [...] >60 >60 mL/min [facility] MAIN LAB Comment: [place] The eGFR is not validated for use in drug dosing adjustments.Continue to use estimated creatinine clearance per dosing reference text.Please contact the Clinical Pharmacist for questions. eGFR >60 >60 mL/min [facility] MAIN LAB [place] Comment: The eGFR is not validated for use in drug dosing adjustments.Continue to use estimated creatinine clearance per dosing reference text.Please contact the Clinical Pharmacist for questions. Performing Organization Address City/State/Zipcode Phone Number MAIN LAB [address] [place] [address] * CHEST SINGLE VIEW (01/08/2019 6:19 AM [...] on 01/08/2019 11:48 AM. Performing Organization Address City/[facility] Phone Number RAD RESULTS * MAGNESIUM (01/08/2019 4:20 AM CDT) Pathologist [facility] Magnesium 1.9 1.6 - 2.6 mg/dL MAIN LAB Specimen Blood Performing Organization Address [facility] Phone Number [facility] LAB [address] [place] [address] * CBC (01/08/2019 4:20 AM CDT) White Blood 4.8 4.5 - 11.0 K/UL [facility] MAIN LAB Cells RBC 3.11 (L) 4.0 - 5.0 M/UL [facility] MAIN LAB Hemoglobin 10.5 (L) 12.0 - 15.0 GM/DL [facility] MAIN LAB Hematocrit 31.7 (L) 36 - 45 % [facility] MAIN LAB MCV 102.1 (H) 80 - 100 FL [facility] MAIN LAB MCH 33.8 26 - 34 PG [facility] MAIN LAB MCHC 33.1 32.0 - 36.0 G/DL [facility] MAIN LAB RDW 13.2 11 - 15 % [facility] MAIN LAB Platelet Count 263 150 - 400 K/UL [facility] MAIN LAB MPV 7.1 7 - 11 FL [facility] MAIN LAB Performing Organization Address [facility] Phone Number [facility] MAIN LAB [address] [place] [address] * BASIC METABOLIC PANEL (01/08/2019 4:20 AM [...] >60 >60 mL/min [facility] MAIN LAB Comment: [place] The eGFR is not validated for use in drug dosing adjustments.Continue to use estimated creatinine clearance per dosing reference text.Please contact the Clinical Pharmacist for questions. eGFR >60 >60 mL/min [facility] MAIN LAB [place] Comment: The eGFR is not validated for use in drug dosing adjustments.Continue to use estimated creatinine clearance per dosing reference text.Please contact the Clinical Pharmacist for questions. Performing Organization Address City/State/Zipcode Phone Number [facility] LAB [address] [place] [phone] * CHEST SINGLE VIEW (01/07/2019 6:14 AM [...] on 01/07/2019 10:53 AM. Performing Organization Address City/[facility]/Zipcode Phone Number [facility] RESULTS * MAGNESIUM (01/07/2019 3:46 AM CDT) Magnesium 2.2 1.6 - 2.6 mg/dL MAIN LAB Specimen Blood Performing Organization Address City/[facility]/Zipcode Phone Number MAIN LAB [address] [place] [address] * CBC (01/07/2019 3:46 AM CDT) White Blood 5.9 4.5 - 11.0 K/UL [facility] MAIN LAB Cells RBC 3.32 (L) 4.0 - 5.0 M/UL [facility] MAIN LAB Hemoglobin 11.2 (L) 12.0 - 15.0 GM/DL [facility] MAIN LAB Hematocrit 33.5 (L) 36 - 45 % [facility] MAIN LAB MCV 101.1 (H) 80 - 100 FL [facility] MAIN LAB MCH 33.6 26 - 34 PG MAIN LAB MCHC 33.3 32.0 - 36.0 G/DL MAIN LAB RDW 13.2 11 - 15 % MAIN LAB Platelet Count 275 150 - 400 K/UL MAIN LAB MPV 7.2 7 - 11 FL MAIN LAB Performing Organization Address [facility] Phone Number MAIN LAB [address] [place] [address] * BASIC METABOLIC PANEL (01/07/2019 3:46 AM CDT) Sodium 137 137 - 147 [...] Nitrogen Creatinine 0.40 0.4 - 1.00 MG/DL MAIN LAB Calcium 8.4 (L) 8.5 - 10.6 MG/DL MAIN LAB eGFR Non >60 >60 mL/min MAIN LAB Comment: [place] The eGFR is not validated for use in drug dosing adjustments.Continue to use estimated creatinine clearance per dosing reference text.Please contact the Clinical Pharmacist for questions. eGFR >60 >60 mL/min MAIN LAB [place] Comment: The eGFR is not validated for use in drug dosing adjustments.Continue to use estimated creatinine clearance per dosing reference text.Please contact the Clinical Pharmacist for questions. Performing Organization Address [facility] Phone Number MAIN LAB [address] [place] [address] * POC BLOOD GAS ARTERIAL (01/06/2019 9:33 AM CDT) PH-ART-POC 7.38 7.35 - 7.45 [facility] MAIN LAB [id number] 44 35 - 45 MMHG [facility] MAIN LAB PO2-ART-POC 123 (H) 80 - 100 MMHG MAIN LAB Base Ex-ART-POC 1.0 MMOL/L MAIN LAB O2 Sat-ART-POC 99.0 95 - 99 % MAIN LAB Bicarbonate-ART 26.1 21 - 28 MMOL/L MAIN LAB -POC Performing Organization Address City/[facility]/Zipcode Phone Number MAIN LAB [address] [place] [address] * CHEST SINGLE VIEW (01/06/2019 4:47 AM [...] on 01/06/2019 10:44 AM. Performing Organization Address City/[facility]/Zipcode Phone Number RAD RESULTS * MAGNESIUM (01/06/2019 2:15 AM CDT) Pathologist [facility] Magnesium 2.3 1.6 - 2.6 mg/dL [facility] MAIN LAB Specimen Blood Performing Organization Address [facility] Phone Number [facility] LAB [address] [place] [address] * BASIC METABOLIC PANEL (01/06/2019 2:15 AM [...] >60 >60 mL/min [facility] MAIN LAB Comment: [place] The eGFR is not validated for use in drug dosing adjustments.Continue to use estimated creatinine clearance per dosing reference text.Please contact the Clinical Pharmacist for questions. eGFR >60 >60 mL/min [facility] MAIN LAB [place] Comment: The eGFR is not validated for use in drug dosing adjustments.Continue to use estimated creatinine clearance per dosing reference text.Please contact the Clinical Pharmacist for questions. Performing Organization Address [facility]/[employer] Phone Number [facility] LAB [address] [place] [address] * CBC (01/06/2019 2:15 AM CDT) Pathologist [facility] White Blood 5.6 4.5 - 11.0 K/UL MAIN LAB Cells RBC 3.76 (L) 4.0 - 5.0 M/UL [facility] MAIN LAB Hemoglobin 12.3 12.0 - 15.0 GM/DL [facility] MAIN LAB Hematocrit 37.9 36 - 45 % [facility] MAIN LAB MCV 100.8 (H) 80 - 100 FL MAIN LAB MCH 32.6 26 - 34 PG MAIN LAB MCHC 32.4 32.0 - 36.0 G/DL MAIN LAB RDW 13.1 11 - 15 % MAIN LAB Platelet Count 317 150 - 400 K/UL MAIN LAB MPV 6.9 (L) 7 - 11 FL MAIN LAB Performing Organization Address [facility] [place] Phone Number MAIN LAB [address] [place] [address] * BLOOD GASES, ARTERIAL (01/06/2019 2:15 AM CDT) [facility] pH-Arterial 7.49 (H) 7.35 - 7.45 MAIN LAB pCO2-Arterial 34 (L) 35 - 45 MMHG MAIN LAB pO2-Arterial 139 (H) 80 - 100 MMHG MAIN LAB Base 2.3 MMOL/L MAIN LAB Excess-Arterial O2 Sat-Arterial 99.5 (H) 95 - 99 % MAIN LAB Bicarbonate-ART 26.5 21 - 28 MMOL/L MAIN LAB -Mir Specimen Blood, arterial - Blood Performing Organization Address [facility] [place] Phone Number MAIN LAB [address] [place] [address] * POC BLOOD GAS ARTERIAL (01/05/2019 6:48 PM CDT) Pathologist [facility] PH-ART-POC 7.43 7.35 - 7.45 MAIN LAB [id number] 36 35 - 45 MMHG MAIN LAB PO2-ART-POC 136 (H) 80 - 100 MMHG MAIN LAB Base 1.0 MMOL/L MAIN LAB Def-ART-POC O2 Sat-ART-POC 99.0 95 - 99 % MAIN LAB Bicarbonate-ART 23.3 21 - 28 MMOL/L MAIN LAB -POC Performing Organization Address [facility] [place] Phone Number MAIN LAB [address] [place] [address] * BLOOD GASES, ARTERIAL (01/05/2019 4:15 PM CDT) pH-Arterial 7.52 (H) 7.35 - 7.45 MAIN LAB pCO2-Arterial 27 (L) 35 - 45 MMHG [facility] MAIN LAB pO2-Arterial 149 (H) 80 - 100 MMHG [facility] MAIN LAB Base 0.6 MMOL/L [facility] MAIN LAB Excess-Arterial O2 Sat-Arterial 99.5 (H) 95 - 99 % MAIN LAB Bicarbonate-ART 25.0 21 - 28 MMOL/L MAIN LAB -Mir Specimen Blood, arterial - Blood Performing Organization Address [facility] Phone Number MAIN LAB [address] [place] [address] * PTT (APTT) (01/05/2019 1:30 PM CDT) APTT 26.5 24.0 - 36.5 SEC [facility] MAIN LAB Performing Organization Address [facility] Phone Number MAIN LAB [address] [place] [address] * PROTIME INR (PT) (01/05/2019 1:30 PM CDT) INR 1.0 0.8 - 1.2 MAIN LAB Performing Organization Address [facility] Phone Number MAIN LAB [address] [place] [address] * BLOOD GASES, ARTERIAL (01/05/2019 1:30 PM CDT) pH-Arterial 7.49 (H) 7.35 - 7.45 MAIN LAB pCO2-Arterial 33 (L) 35 - 45 MMHG MAIN LAB pO2-Arterial 398 (H) 80 - 100 MMHG MAIN LAB Base 1.7 MMOL/L MAIN LAB Excess-Arterial O2 Sat-Arterial 100.0 (H) 95 - 99 % MAIN LAB Bicarbonate-ART 26.0 21 - 28 MMOL/L MAIN LAB -Mir Specimen Blood, arterial - Blood Performing Organization Address [facility] Phone Number MAIN LAB [address] [place] [address] * MAGNESIUM (01/05/2019 1:30 PM CDT) Magnesium 1.9 1.6 - 2.6 mg/dL MAIN LAB Specimen Blood Performing Organization Address City/[facility]/Zipcode Phone Number MAIN LAB [address] [place] [address] * BASIC METABOLIC PANEL (01/05/2019 1:30 PM CDT) Sodium 131 (L) 137 - 147 MMOL/L [facility] MAIN LAB Potassium 4.4 3.5 - 5.1 MMOL/L [facility] MAIN LAB Chloride 97 (L) 98 - 110 MMOL/L [facility] MAIN LAB CO2 24 21 - 30 MMOL/L [facility] MAIN LAB Anion Gap 10 3 - 12 [facility] MAIN LAB Glucose 107 (H) 70 - 100 MG/DL [facility] MAIN LAB Blood Urea 7 7 - 25 MG/DL [facility] MAIN LAB Nitrogen Creatinine 0.52 0.4 - 1.00 MG/DL [facility] MAIN LAB Calcium 9.0 8.5 - 10.6 MG/DL [facility] MAIN LAB eGFR Non >60 >60 mL/min [facility] MAIN LAB Comment: [place] The eGFR is not validated for use in drug dosing adjustments.Continue to use estimated creatinine clearance per dosing reference text.Please contact the Clinical Pharmacist for questions. eGFR >60 >60 mL/min [facility] MAIN LAB [place] Comment: The eGFR is not validated for use in drug dosing adjustments.Continue to use estimated creatinine clearance per dosing reference text.Please contact the Clinical Pharmacist for questions. Specimen Blood Performing Organization Address City/[facility]/Zipcode Phone Number MAIN LAB [address] [place] [address] * CBC (01/05/2019 1:30 PM CDT) Pathologist [facility] White Blood 8.5 4.5 - 11.0 K/UL [facility] MAIN LAB Cells RBC 4.01 4.0 - 5.0 M/UL [facility] MAIN LAB Hemoglobin 13.4 12.0 - 15.0 GM/DL [facility] MAIN LAB Hematocrit 39.8 36 - 45 % [facility] MAIN LAB MCV 99.3 80 - 100 FL [facility] MAIN LAB MCH 33.4 26 - 34 PG [facility] MAIN LAB MCHC 33.6 32.0 - 36.0 G/DL MAIN LAB RDW 12.9 11 - 15 % [facility] MAIN LAB Platelet Count 329 150 - 400 K/UL [facility] MAIN LAB MPV 6.6 (L) 7 - 11 FL [facility] MAIN LAB Specimen Blood Performing Organization Address City/[facility]/Zipcode Phone Number MAIN LAB [address] [place] [address] * ABDOMEN AP ONLY (01/05/2019 12:57 PM [...] stomach. Lower pelvis is excluded from the [id number]. Visualized bowel gas pattern is nonobstructive. Procedure [...] stomach. Lower pelvis is excluded from the [id number]. Visualized bowel gas pattern is nonobstructive. IMPRESSION [...] on 01/05/2019 3:40 PM. Performing Organization Address City/State/Zipcode Phone Number [employer] RAD RESULTS * GRAM STAIN (01/05/2019 11:03 AM CDT) Battery Name GRAM STAIN [facility] MAIN LAB Specimen TISSUE [facility] MAIN LAB Description PLERUAL PEEL Special NONE [facility] MAIN LAB Requests Gram Stain NO NEUTROPHILS SEEN [facility] MAIN LAB NO ORGANISMS SEEN Report Status FINAL [facility] MAIN LAB 01/05/2019 Specimen Tissue - Tissue Performing Organization Address City/[facility]/Zipcode Phone Number MAIN LAB [address] [place] [address] * CULTURE-WOUND/TISSUE/FLUID(AEROBIC ONLY)W/SENSITIVITY (01/05/2019 11:03 AM CDT) Battery Name ROUTINE CULTURE [facility] MAIN LAB Specimen TISSUE [facility] MAIN LAB Description PLERUAL PEEL Special NONE [facility] MAIN LAB Requests Direct Gram NO NEUTROPHILS SEEN [facility] MAIN LAB Stain NO ORGANISMS SEEN Culture NO GROWTH 5 DAYS [facility] MAIN LAB Report Status FINAL [facility] MAIN LAB 01/10/2019 Specimen Tissue - Tissue Performing Organization Address City/[facility]/Zipcode Phone Number MAIN LAB [address] [place] [phone] * CULTURE-ANAEROBIC (01/05/2019 11:03 AM CDT) Battery Name ANAEROBE CULTURE [facility] MAIN LAB Specimen TISSUE [facility] MAIN LAB Description PLERUAL PEEL Special NONE [facility] MAIN LAB Requests Culture NO ANAEROBES ISOLATED [facility] MAIN LAB Report Status FINAL MAIN LAB 01/11/2019 Specimen Tissue - Tissue Performing Organization Address City/[facility]/Zipcode Phone Number MAIN LAB [address] [place] [address] * CHEST SINGLE VIEW (01/05/2019 6:28 AM [...] on 01/05/2019 10:39 AM. Performing Organization Address City/[facility]/Zipcode Phone Number [facility] RESULTS * PHOSPHORUS (01/05/2019 5:31 AM CDT) Phosphorus 3.9Comment: NOTE NEW REFERENCE 2.0 - 4.5 MG/DL [facility] MAIN LAB RANGES Specimen Blood Performing Organization Address [facility] Phone Number MAIN LAB [address] [place] [address] * MAGNESIUM (01/05/2019 5:31 AM CDT) Magnesium 2.1 1.6 - 2.6 mg/dL MAIN LAB Specimen Blood Performing Organization Address [facility]/Zipcode Phone Number MAIN LAB [address] [place] [address] * COMPREHENSIVE METABOLIC PANEL (01/05/2019 5:31 AM [...] >60 >60 mL/min [facility] MAIN LAB Comment: [place] The eGFR is not validated for use in drug dosing adjustments.Continue to use estimated creatinine clearance per dosing reference text.Please contact the Clinical Pharmacist for questions. eGFR >60 >60 mL/min [facility] MAIN [facility] [place] Comment: The eGFR is not validated for use in drug dosing adjustments.Continue to use estimated creatinine clearance per dosing reference text.Please contact the Clinical Pharmacist for questions. Specimen Blood Performing Organization Address City/State/Zipcode Phone Number [facility] LAB [address] [place] [address] * CBC AND DIFF (01/05/2019 5:31 AM [...] Basophil Count Specimen Blood Performing Organization Address City/[facility] Phone Number MAIN LAB [address] [place] [address] * BLOOD TYPE CONFIRMATION - ORDER ONLY IF REQUESTED BY LAB (01/04/2019 2:55 PM CDT) ABO/RH(D) A POS MAIN LAB Specimen Blood Performing Organization Address [facility] Phone Number MAIN LAB [address] [place] [address] * TYPE & CROSSMATCH (01/04/2019 1:46 PM CDT) Units Ordered 0 MAIN LAB Crossmatch 01/07/2019 MAIN LAB Expires Record Check 2ND TYPE REQUIRED MAIN LAB ABO/RH(D) A POS MAIN LAB Antibody Screen NEG MAIN LAB Electronic YES MAIN LAB Crossmatch Specimen Blood Performing Organization Address [facility] [place] Phone Number MAIN LAB [address] [place] [address] * CHEST SINGLE VIEW (01/04/2019 10:04 AM [...] Edwardo Shepherd M.D. on 01/04/2019 10:12 AM. Performing Organization Address City/State/Zipcode Phone Number [facility] RAD RESULTS * PHOSPHORUS (01/04/2019 5:09 AM CDT) Phosphorus 4.2Comment: NOTE NEW REFERENCE 2.0 - 4.5 MG/DL [facility] MAIN LAB RANGES Specimen Blood Performing Organization Address [facility] Phone Number [facility] MAIN [facility] [address] [place] [address] * MAGNESIUM (01/04/2019 5:09 AM CDT) Magnesium 2.0 1.6 - 2.6 mg/dL [facility] MAIN LAB Specimen Blood Performing Organization Address [facility] Phone Number MAIN LAB [address] [place] [address] * COMPREHENSIVE METABOLIC PANEL (01/04/2019 5:09 AM CDT) Sodium 138 137 - 147 [...] >60 >60 mL/min [facility] MAIN LAB Comment: [place] The eGFR is not validated for use in drug dosing adjustments.Continue to use estimated creatinine clearance per dosing reference text.Please contact the Clinical Pharmacist for questions. eGFR >60 >60 mL/min [facility] MAIN LAB [place] Comment: The eGFR is not validated for use in drug dosing adjustments.Continue to use estimated creatinine clearance per dosing reference text.Please contact the Clinical Pharmacist for questions. Specimen Blood Performing Organization Address [facility]/Zipcode Phone Number MAIN LAB [address] [place] [address] * CBC AND DIFF (01/04/2019 5:09 AM [...] Basophil Count Specimen Blood Performing Organization Address City/[facility]/Zipcode Phone Number [facility] MAIN LAB [address] [place] [address] * TSH WITH FREE T4 REFLEX (01/03/2019 3:35 AM CDT) TSH 3.840 0.35 - 5.00 MCU/ML [facility] Performing Organization Address City/[facility]/Zipcode Phone Number [facility] [address] [place] [address] * VITAMIN B12 (01/03/2019 3:35 AM CDT) Vitamin B12 396 180 - 914 PG/ML [facility] Performing Organization Address City/[facility]/Zipcode Phone Number [facility] [address] [place] [address] * PHOSPHORUS (01/03/2019 3:35 AM CDT) Phosphorus 3.6Comment: NOTE NEW REFERENCE 2.0 - 4.5 MG/DL [facility] RANGES Specimen Blood Performing Organization Address [facility] Phone Number [facility] [address] [place] [address] * MAGNESIUM (01/03/2019 3:35 AM CDT) Magnesium 1.9 1.6 - 2.6 mg/dL [facility] Specimen Blood Performing Organization Address [facility]ercowi Phone Number [facility] [address] [place] [address] * COMPREHENSIVE METABOLIC PANEL (01/03/2019 3:35 AM [...] >60 >60 mL/min [facility] Comment: [place] The eGFR is not validated for use in drug dosing adjustments.Continue to use estimated creatinine clearance per dosing reference text.Please contact the Clinical Pharmacist for questions. eGFR >60 >60 mL/min [facility] [place] Comment: The eGFR is not validated for use in drug dosing adjustments.Continue to use estimated creatinine clearance per dosing reference text.Please contact the Clinical Pharmacist for questions. Specimen Blood Performing Organization Address City/State/Zipcode Phone Number [facility] [address] [place] [phone] * CBC AND DIFF (01/03/2019 3:35 AM [...] Basophil Count Specimen Blood Performing Organization Address City/[facility]/Zipcode Phone Number [facility] [address] [place] [address] * CT CHEST W CONTRAST (01/02/2019 10:56 [...] opinions expressed in this report Finalized by BRIHGT PATRICK on 01/02/2019 11:16 AM. Dictated by Edwardo Shepherd M.D. on 01/02/2019 10:05 AM. Performing Organization Address City/State/Zipcode Phone Number RAD RESULTS * MAGNESIUM (01/02/2019 3:17 AM CDT) Pathologist [facility] Magnesium 1.8 1.6 - 2.6 mg/dL [facility] Specimen Blood Performing Organization Address City/[facility]/Zipcode Phone Number MAIN LAB [address] [place] [address] * COMPREHENSIVE METABOLIC PANEL (01/02/2019 3:17 AM CDT) Sodium 137 137 - 147 [...] >60 >60 mL/min [facility] Comment: [place] The eGFR is not validated for use in drug dosing adjustments.Continue to use estimated creatinine clearance per dosing reference text.Please contact the Clinical Pharmacist for questions. eGFR >60 >60 mL/min [facility] [place] Comment: The eGFR is not validated for use in drug dosing adjustments.Continue to use estimated creatinine clearance per dosing reference text.Please contact the Clinical Pharmacist for questions. Specimen Blood Performing Organization Address City/[facility]/Zipcode Phone Number MAIN LAB [address] [place] [address] * CBC AND DIFF (01/02/2019 3:17 AM [...] Basophil Count Specimen Blood Performing Organization Address City/[facility]/Zipcode Phone Number MAIN LAB [address] [place] [address] * TROPONIN-I (01/01/2019 6:40 PM CDT) Troponin-I <0.03 0.0 - 0.05 NG/ML [facility] Specimen Blood Performing Organization Address City/[facility]/Zipcode Phone Number MAIN LAB [address] [place] [address] * CHEST SINGLE VIEW (01/01/2019 5:05 PM [...] on 01/02/2019 7:01 AM. Performing Organization Address [facility] Phone Number RAD RESULTS * BLOOD GASES, ARTERIAL (01/01/2019 5:00 PM CDT) [facility] pH-Arterial 7.37 7.35 - 7.45 [facility] pCO2-Arterial 52 (H) 35 - [address] [facility] pO2-Arterial 81 80 - [address] [facility] Base 3.8 MMOL/L [facility] Excess-Arterial O2 Sat-Arterial 96.3 95 - 99 % [facility] Bicarbonate-ART 27.8 21 - 28 MMOL/L [facility] -Mir Specimen Blood, arterial - Blood Performing Organization Address [facility] [place] Phone Number MAIN LAB [address] [place] [address] * BLOOD BANK SAMPLE HOLD (01/01/2019 4:35 PM CDT) [facility] BB Sample hold IN LAB MAIN LAB Performing Organization Address [facility] Phone Number [facility] [address] [place] [address] * TROPONIN-I (01/01/2019 4:35 PM CDT) [facility] Troponin-I <0.03 0.0 - 0.05 NG/ML [facility] Specimen Blood Performing Organization Address [facility] Phone Number [facility] [address] [place] [address] * PROCALCITONIN (01/01/2019 4:35 PM CDT) Procalcitonin 0.02 <0.10 NG/ML [facility] Specimen Blood Performing Organization Address [facility] Centercode Phone Number [facility] [address] [place] [address] * BNP (B-TYPE NATRIURETIC PEPTI) (01/01/2019 4:35 PM CDT) B Type 36.0 0 - 100 PG/ML [facility] Natriuretic Peptide Specimen Blood Performing Organization Address [facility] Phone Number MAIN LAB [address] [place] [address] * PHOSPHORUS (01/01/2019 4:35 PM CDT) Phosphorus 3.0Comment: NOTE NEW REFERENCE 2.0 - 4.5 MG/DL [facility] RANGES Specimen Blood Performing Organization Address [facility] Phone Number MAIN LAB [address] [place] [phone] * MAGNESIUM (01/01/2019 4:35 PM CDT) Magnesium 1.8 1.6 - 2.6 mg/dL [facility] Specimen Blood Performing Organization Address [facility] [place] Phone Number MAIN LAB [address] [place] [phone] * LACTIC ACID (BG - RAPID LACTATE) (01/01/2019 4:35 PM CDT) Lactic Acid,BG 1.0 0.5 - 2.0 MMOL/L [facility] Specimen Blood Performing Organization Address [facility] [place] Phone Number MAIN LAB [address] [place] [address] * COMPREHENSIVE METABOLIC PANEL (01/01/2019 4:35 PM CDT) Sodium 136 (L) 137 - 147 [...] LAB Anion Gap 8 3 - 12 MAIN LAB eGFR Non >60 >60 mL/min MAIN LAB Comment: [place] The eGFR is not validated for use in drug dosing adjustments.Continue to use estimated creatinine clearance per dosing reference text.Please contact the Clinical Pharmacist for questions. eGFR >60 >60 mL/min [facility] [place] Comment: The eGFR is not validated for use in drug dosing adjustments.Continue to use estimated creatinine clearance per dosing reference text.Please contact the Clinical Pharmacist for questions. Specimen Blood Performing Organization Address City/[facility]/Zipcode Phone Number [facility] [address] [place] [address] * PTT (APTT) (01/01/2019 4:35 PM CDT) APTT 25.8 24.0 - 36.[address] [facility] Specimen Blood Performing Organization Address [facility]/Zipcode Phone Number [facility] [address] [place] [address] * PROTIME INR (PT) (01/01/2019 4:35 PM CDT) INR 1.0 0.8 - 1.2 [facility] Specimen Blood Performing Organization Address [facility]/Zipcode Phone Number [facility] [address] [place] [address] * CBC AND DIFF (01/01/2019 4:35 PM CDT) White Blood 6.1 4.5 - 11.0 K/UL [facility] Cells RBC 3.66 (L) 4.0 - 5.0 M/UL [facility] Hemoglobin 12.3 12.0 - 15.0 GM/DL [facility] Hematocrit 36.8 36 - 45 % [facility] MCV 100.5 (H) 80 - 100 FL MAIN LAB MCH 33.6 26 - 34 PG [facility] MCHC 33.5 32.0 - 36.0 G/DL MAIN LAB RDW 12.9 11 - 15 [...] Blood Performing Organization Address City/State/Zipcode Phone Number [facility] [address] [place] [address] * TELEMETRY STRIPS-SCAN (01/01/2019 12:00 AM CDT) [...] encounter Visit Diagnoses Diagnosis Pneumothorax on right Other pneumothorax documented in this encounter Admitting Diagnoses Diagnosis Acute respiratory failure with hypoxia (HCC) Acute respiratory failure documented in this encounter Administered Medications Action Date Dose Rate Site Medication Order MAR Action 01/16/2019 8:49 AM CDT 650 mg acetaminophen (TYLENOL) tablet 650 mg Given 650 mg, Oral, EVERY 4 HOURS PRN, Starting Fri01/01/19 at 1845, Until 01/16/19 at 1359, Pain non-opioid: may be used alone or in combination with opioid analgesia, TOTAL ACETAMINOPHEN DOSE NOT TO EXCEED 4GM DAILY, 650 mg Given 01/15/2019 10:25 PM CDT 650 mg Given 01/15/2019 4:25 PM CDT 01/14/2019 9:01 PM CDT 3 mL acetylcysteine (MUCOMYST) 200 mg/mL (20 Given %) nebulizer solution 3 mL 3 mL, Inhalation, RT NEEDED, Starting Fri01/12/19 at 1515, Until 01/16/19 at 1359, RT PROTOCOL, When administered by RT, will be per RT policy. Wpam=342zp/ml, 3 mL Given 01/12/2019 8:16 PM CDT 01/16/2019 8:48 AM CDT 2.5 mg albuterol 0.5% (PROVENTIL; VENTOLIN) Given nebulizer solution 2.5 mg 2.5 mg, Inhalation, RT THREE TIMES DAILY AND PRN, First dose on Fri01/11/19 at 2245, Until Discontinued, When administered by RT, will be per RT policy., 2.5 mg Given 01/15/2019 1:29 PM CDT 2.5 mg Given 01/15/2019 8:42 AM CDT 01/05/2019 11:26 AM CDT 20 mL Chest, Right bupivacaine 0.5%/EPINEPHrine 1:200,000 Given injection INTRA-PROCEDURE MED, Starting Fri01/05/19 at 1126, Until Fri01/12/19 at 1225, Intra-op 01/06/2019 4:44 AM CDT 25 mcg fentaNYL citrate PF (SUBLIMAZE) Given injection 25 mcg 25 mcg, Intravenous, EVERY 1 HOUR PRN, Starting Fri01/06/19 at 0223, Until 01/16/19 at 1359, Pain Injectable, To be given in ICU only., 01/16/2019 8:49 AM CDT 1 puff fluticasone-salmeterol [...] 600 mg Given 01/15/2019 4:24 PM CDT 01/15/2019 8:09 PM CDT 5,000 Units Abdominal Tissue heparin (porcine) PF syringe 5,000 Units Given 5,000 Units, Subcutaneous, THREE TIMES DAILY, First dose on Fri01/05/19 at 2100, Until Discontinued, First dose given post-op at 2100. NOTE: This is a HIGH ALERT Medication., For NON-epidural patients, 5,000 Units Abdominal Tissue Given 01/15/2019 8:58 AM CDT 5,000 Units Abdominal Tissue Given 01/14/2019 9:52 PM CDT 01/05/2019 11:25 AM CDT 480 mL Chest, Right hydrogen peroxide(+) 3 % solution Given INTRA-PROCEDURE MED, Starting Fri01/05/19 at 1125, Until Fri01/12/19 at 1225, Intra-op milk of magnesia (CONC) oral suspension 10 [...] PO, (May use for PO or NG), oxyCODONE (ROXICODONE, OXY-IR) tablet 5-10 mg 5-10 [...] mL, Administer over 60 Minutes, NEEDED, Starting 01/05/19 at 1216, Until 01/16/19 at 1359, See [...] 20-40 mEq, Per NG tube, NEEDED, Starting e 01/05/19 at 1216, Until 01/16/19 at 1359, Other..., [...] 20-40 mEq 20-40 mEq, Oral, NEEDED, Starting 01/05/19 at 1216, Until 01/16/19 at 1359, Other..., [...] mEq Given 01/08/2019 6:55 AM CDT 01/06/2019 8:29 AM CDT 20 [...] tablets Given 01/10/2019 8:38 PM CDT 01/05/2019 10:57 AM CDT 2,000 mL Chest, Right sodium chloride 0.9% irrigation bottle Given INTRA-PROCEDURE MED, Starting Fri01/05/19 at 1057, Until Fri01/12/19 at 1521, Intra-op 01/16/2019 8:49 AM CDT 15 mL sodium chloride 3 % nebulizer solution Given Inhalation, RT TWICE DAILY, First dose on Fri01/12/19 at 1800, Until Discontinued, When administered by RT, will be per RT policy., 1 mL Given 01/15/2019 8:57 PM CDT 15 mL Given 01/15/2019 8:42 AM CDT 01/16/2019 8:49 AM CDT 100 mg thiamine mononitrate tablet 100 mg Given 100 mg, Oral, DAILY, First dose on Fri01/01/19 at 1945, Until Discontinued 100 mg Given 01/15/2019 8:58 AM CDT 100 mg Given 01/14/2019 9:06 AM CDT 01/16/2019 8:48 AM CDT 1 capsule tiotropium (SPIRIVA) capsule for inhaler Given 1 capsule 1 capsule, Inhalation, RT DAILY, First dose on Fri01/03/19 at 1745, Until Discontinued, When administered by [...]
--- OUTSIDE RECORDS SUMMARY | 2019-01-23 09:17 | XMS REPORT | Encounter Summary ---
Author Author [facility] Organization [facility] Address Unknown Phone Unavailable Care Team Providers Care Assistant Food Service Director Name Role Phone No Pcp, Na PCP Unavailable Encounter Details Care Team Description Date Type Department 01/01/2019 [facility] [address] [address] Social History Date Tobacco Use Types [...] history available. documented as of this encounter Medications at Time of Discharge [...] mg iron-400 by mouth mcg tab daily. 01/03/2019 aspirin 325 mg tablet Take 325 mg 0 by mouth every 6 hours as needed for Pain. Take with food. documented as of this encounter Plan of Treatment Not on filedocumented as of this encounter Procedures Comments Procedure Name Priority Date/Time Associated Diagnosis ECG-SCAN 01/03/2019 12:00 AM CDT GENERAL RAD CHEST Routine 01/01/2019 EXTERNAL IMAGING 12:00 AM CDT documented in this encounter Results * ECG-SCAN (01/03/2019 12:00 AM CDT) Narrative Performed At Ordered by an unspecified provider. documented in this encounter Visit Diagnoses Not on filedocumented in this encounter
--- OUTSIDE RECORDS SUMMARY | 2019-01-23 09:17 | XMS REPORT | Encounter Summary ---
Author Author [facility] Organization [facility] Address Unknown Phone Unavailable Care Team Providers Care Sleep Technician Name Role Phone No Pcp, Na PCP Unavailable Reason for Visit * Auth/Cert Referred By Contact Referred To Contact Status Reason Specialty Diagnoses / Procedures Diagnoses Acute respiratory failure with hypoxia (HCC) Respiratory Distress Encounter Details Care Team Description Date Type Department Yash Grijalva MD [address] [place] [address] 01/05/2019 Anesthesia [facility] [address] [place] [address] Anesthesia Record Responsible Anesthesiologist Anesthesia Start Time Anesthesia Stop Time Procedure Name Otoniel Ortiz MD 01/05/19 1020 01/05/19 1207 RIGHT VIDEO ASSISTED THORACOSCOPY WITH MECHANICAL PLEURODESIS (Right ) Date Time Event Comment 1003 AN Equip Check 2019 1006 1018 Out of Pre Procedure 1020 In Room 1020 Anes Start 1023 An Start Data 1032 An Induction The patient was reevaluated immediately before moderate or deep sedation use and before anesthesia induction. 1036 An Intubation 1040 Anesthesia Ready 1045 An one lung vent 1052 Antibiotic Given 1058 Quick Note CPAP 7.5 to down lung 1101 Quick Note CPAP removed at Surgeon request 1104 Quick Note CPAP reapplied to down lung 7.5 1119 An Two-Lung Vent 1119 An one lung vent 1121 An Two-Lung Vent 1144 An Extubation 1145 An Intubation 1155 an stop data 1157 Transport RT with ventilator and ASA monitors for transport 1207 Handoff to RN I completed my SBAR handoff to the receiving nurse. 1207 An Stop Meds Name Total fentaNYL PF (SUBLIMAZE) injection 200 mcg lidocaine (2%) 200 mg/10mL Injection 40 mg syringe propofol (DIPRIVAN) 200 mg/ 20 mL 60 mg injection (VIAL) rocuronium (ZEMURON) injection 50 mg phenylephrine (LINA-SYNEPHRINE) 0.1 mg/mL 400 mcg injection (SYRINGE) ceFAZolin (ANCEF) injection 2 g propofol (DIPRIVAN) infusion 40.32 mg * Name O2 N2O Inspired N2O Isoflurane Inspired Isoflurane * No blood administrations on file. Removal Type Details Placement Pressure 01/01/19; 1631; Y; Coccyx; Stage 1 01/01/19 1631 by Nic Onofre RN Wounds 01/05/19; 1115; Right; Chest; Surgical 01/05/19 1115 by El, (NOT for Incision ELIAS Packer Pressure Injuries) Chest Tube 01/05/19; 1119; Right (upper #1); 01/05/19 1119 by Somkalpesh, Pleural; 24 FR; Correct Procedure, ELIAS Packer Correct Patient, Correct Equipment / Implants Available, Marking Waived, Not Side Specific, Correct Patient Position, Correct Side / Site Marked "YES" Chest Tube 01/05/19; 1120; Right; Pleural (#2 01/05/19 1120 by El, lower); 24 FR; Correct Procedure, ELIAS Packer Correct Equipment / Implants Available, Correct Patient, Correct Patient Position, Correct Side / Site Marked "YES" ETT 01/05/19; 1145; Mask ventilation not 01/05/19 1145 by Manuel, attempted (0); Direct laryngoscopy, KAN Johnson Stylet; Single-Lumen, Cuffed; 8mm; Mac; 3; Oral; 1-Full view of the glottis; 1 insertion attempt; Auscultation, ETCO2 Detector, Other (Comment) (placement confirmed via FOB); 21 centimeters; atraumatic with ease 01/05/19 1057 by Birdie Gallegos RN Chest Tube Right; Pleural; 01/05/19; 1057 01/01/19 1640 by Libia Onofre RN 01/09/19 0850 by Tressa Laguna RN Peripheral L; Antecubital; 22 G; Occlusion; 01/01/19 1641 by IV 01/09/19; 0850 01/06/19 0945 by Aron Smith, ELIAS Oral 01/05/19; Oral; 01/06/19; 0945 01/05/19 0000 by Luis Gastric Aron, RN Tube 01/06/19 2335 by Ada Denny RN Peripheral 01/05/19; 1034; Provider; L; Posterior; 01/05/19 1034 by MELANY Jackson Hand; 18 G; 1; 01/06/19; 2335 Elizabeth, WINE MANAGER 01/05/19 1144 by Elizabeth Jackson CRNA ETT 01/05/19; 1036; Ventilated by mask (1); 01/05/19 1036 by Manuel, Direct laryngoscopy, Stylet; KAN Johnson Double-Lumen L; 35 Fr; Mac; 3; Oral; 1-Full view of the glottis; 1 insertion attempt; Auscultation, ETCO2 Detector, Other (Comment) (placement confirmed via FOB); 26 centimeters; atraumatic with ease; 01/05/19; 1144 01/05/19 1603 by Emily Rosario RN Wounds 01/05/19; 1119; Right; Chest; Surgical 01/05/19 1119 by El, (NOT for Incision; 01/05/19; 1603 ELIAS Packer Pressure Injuries) 01/05/19 1604 by Emily Rosario RN Wounds 01/05/19; 1120; Right; Chest; Surgical 01/05/19 1120 by El, (NOT for Incision; 01/05/19; 1604 ELIAS Packer Pressure Injuries) 01/06/19 1217 by Aron Smith RN Indwelling 01/05/19; 1142; (CVOR 3); 16 FR; 01/05/19 1142 by El, Urinary Regular (Two-way); 01/06/19; 1217 ELIAS Packer Catheter 01/07/19 1536 by Gwen Casey RN Endotrache 01/05/19; 1200; Oral; 8mm; Single-Lumen; 01/05/19 1200 by Jayy al Tube Auscultation, ETCO2 Detector, Chest Cate, RT X-Ray; 21 cm; 01/07/19; 1536 documented in this encounter Social History Date Tobacco Use Types Packs/Day [...] history available. documented as of this encounter Functional Status Date of Assessment Functional Status Response 01/03/2019 Does the patient have a hearing impairment: Yes documented as of this encounter OR Notes * Anesthesia Postprocedure Evaluation - Otoniel Ortiz MD - 01/05/2019 12:14 PM CDT Post-Anesthesia Evaluation Name: Yun Guevara : 1945 Age: 73 y.o. Sex : female Procedure Date: 01/05/2019 Procedure: Procedure(s): RIGHT VIDEO ASSISTED THORACOSCOPY WITH MECHANICAL PLEURODESIS THORACOTOMY WITH EXPLORATION, WITH CREATION OF PNEUMO-PERITONEUM Surgeon: Surgeon(s): Alirio Stanford MD Mann, Ashley A, MD Post-Anesthesia Vitals Pulse: 99 (01/05 1205) Respirations: 19 PER MINUTE (01/05 1205) SpO2: 100 % (01/05 1205) NIBP: 134/92 Post Anesthesia Evaluation Note Evaluation location: ICU Patient participation: patient intubated, unable to assess; expectation of recov mo by ICU physician Level of consciousness: intubated & sedated Ventilator settings Mode: VC FIO2: 100 Tidal Volume: 380 Vent rate: 12 PEEP: 8 Pain management: adequate Hydration: normovolemia Temperature: 36.0C - 38.4C Airway patency: adequate Perioperative Events Post-op nausea and vomiting: no PONV Postoperative Status Cardiovascular status: hemodynamically stable Respiratory status: ETT and supplemental oxygen Follow-up needed: imaging Additional comments: Assisted in transport and reported to ICU team. ICU Information Staff involved in transport include: WINE MANAGER, anesthesiologist and OR nurse Perioperative Events Perioperative Event: No Emergency Case Activation: No * Anesthesia Preprocedure Evaluation - Otoniel Ortiz MD - 01/04/2019 2:34 PM CDT Anesthesia Pre-Procedure Evaluation Name: Yun Guevara : 1945 Age: 73 y.o. Sex : female Procedure Date: 01/05/2019 Procedure: Procedure(s): RIGHT VIDEO ASSISTED THORACOSCOPY WITH MECHANICAL PLEURODESIS THORACOTOMY WITH EXPLORATION, WITH CREATION OF PNEUMO-PERITONEUM Physical Assessment Vital Signs (last filed in past 24 hours): BP: 125/52 (01/04 131) Temp: 36.4 C (97.6 F) (01/04 1314) Pulse: 101 (01/04 1314) Respirations: 18 PER MINUTE (01/04 1314) SpO2: 96 % (01/04 1314) O2 Delivery: Nasal Cannula (01/04 1314) Weight: 49.1 kg (108 lb 3.9 oz) (01/04 627) Patient History No Known Allergies Current Medications Medication Directions cyanocobalamin (VITAMIN B-12, RUBRAMIN) 1,000 mcg/mL injection Inject 1,000 mcg into the muscle. Every 2 months fluticasone-vilanterol(+) (BREO ELLIPTA) 100-25 mcg inhalation disk Inhale 1 puf f by mouth into the lungs daily. umeclidinium(+) (INCRUSE ELLIPTA) 62.5 mcg/actuation inhalation disk Inhale 1 pu ff by mouth into the lungs daily. vitamins, multi w/minerals 9 mg iron-400 mcg tab Take 1 tablet by mouth daily. 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 Abdominal Findings: Not obese Neurological Findings: Alert and oriented x 3 Constitutional findings: No acute distress Well-developed Well-nourished Diagnostic Tests Hematology: Lab Results Component Value Date HGB 11.9 01/04/2019 HCT 36.9 01/04/2019 PLTCT 312 01/04/2019 WBC 3.6 01/04/2019 NEUT 55 01/04/2019 ANC 2.00 01/04/2019 ALC 0.50 01/04/2019 JOSIAS 15 01/04/2019 AMC 0.60 01/04/2019 EOSA 14 01/04/2019 ABC 0.00 01/04/2019 MCV 102.3 01/04/2019 MCH 33.1 01/04/2019 MCHC 32.3 01/04/2019 MPV 6.9 01/04/2019 RDW 13.2 01/04/2019 General Chemistry: Lab Results Component Value Date NA 138 01/04/2019 K 4.2 01/04/2019 CL 101 01/04/2019 CO2 32 01/04/2019 GAP 5 01/04/2019 BUN 6 01/04/2019 CR 0.41 01/04/2019 GLU 97 01/04/2019 CA 9.2 01/04/2019 ALBUMIN 3.1 01/04/2019 MG 2.0 01/04/2019 TOTBILI 0.2 01/04/2019 PO4 4.2 01/04/2019 Coagulation: Lab Results Component Value Date PTT 25.8 01/01/2019 INR 1.0 01/01/2019 Anesthesia Plan ASA score: 3 Plan: general Induction method: intravenous NPO status: acceptable Informed Consent Anesthetic plan and risks discussed with patient. Use of blood products discussed with patient Blood Consent: consented Plan discussed with: resident, anesthesiologist and WINE MANAGER. Comments: (Pt states was intubated in November. Questions answered and pt wishes to proceed.) documented in this encounter Plan of Treatment Not on filedocumented as of this encounter Visit Diagnoses Not on filedocumented in this encounter Administered Medications Action Date Dose Rate Site Medication Order MAR Action 01/05/2019 10:52 AM CDT 2 g ceFAZolin (ANCEF) injection Given INTRA-PROCEDURE MED, Starting Fri01/05/19 at 1052, Until Fri01/05/19 at 1212, Anesthesia Intra-op 01/05/2019 11:15 AM CDT 50 mcg fentaNYL citrate PF (SUBLIMAZE) Given injection INTRA-PROCEDURE MED, Starting Fri01/05/19 at 1028, Until Fri01/05/19 at 1212, Anesthesia Intra-op 50 mcg Given 01/05/2019 11:05 AM CDT 50 mcg Given 01/05/2019 10:56 AM CDT 01/05/2019 10:32 AM CDT 40 mg lidocaine (PF) injection Given INTRA-PROCEDURE MED, Starting Fri01/05/19 at 1032, Until Fri01/05/19 at 1212, Anesthesia Intra-op 01/05/2019 11:33 AM CDT 100 mcg phenylephrine in NS injection syringe Given Intravenous, INTRA-PROCEDURE MED, Starting Fri01/05/19 at 1123, Until Fri01/05/19 at 1212, Anesthesia Intra-op 200 mcg Given 01/05/2019 11:24 AM CDT 100 mcg Given 01/05/2019 11:23 AM CDT 01/05/2019 11:51 AM CDT 60 mcg/kg/min 15.1 mL/hr propofol (DIPRIVAN) infusion Given - New 100 mL, INTRA-PROCEDURE MED(CONT), Bag Starting Fri01/05/19 at 1151, Until Fri01/05/19 at 1212, Anesthesia Intra-op 01/05/2019 11:41 AM CDT 30 mg propofol (DIPRIVAN) injection Given INTRA-PROCEDURE MED, Starting Fri01/05/19 at 1032, Until Fri01/05/19 at 1212, Anesthesia Intra-op 30 mg Given 01/05/2019 10:32 AM CDT 01/05/2019 11:17 AM CDT 15 mg rocuronium (ZEMURON) injection Given Intravenous, INTRA-PROCEDURE MED, Starting Fri01/05/19 at 1033, Until Fri01/05/19 at 1212, Anesthesia Intra-op 10 mg Given 01/05/2019 11:00 AM CDT 25 mg Given 01/05/2019 10:33 AM CDT documented in this encounter
--- OUTSIDE RECORDS SUMMARY | 2019-01-23 09:18 | XMS REPORT | Continuity of Care Document ---
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 07/08/2016 SAUNDRA MEHTA Ot Z79.899 OTHER GRINDING MILL OPERATOR (CURRENT) DRUG THERAPY 07/08/2016 SAUNDRA MEHTA Ot Z87.891 PERSONAL HISTORY OF NICOTINE DEPENDENCE 07/09/2016 SAUNDRA MEHTA Ot J18.9 PNEUMONIA, UNSPECIFIED ORGANISM 07/09/2016 SAUNDRA MEHTA Ot J44.9 CHRONIC OBSTRUCTIVE PULMONARY DISEASE, U 07/09/2016 SAUNDRA MEHTA Ot Z79.82 INTERMEDIATE (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 07/09/2016 SAUNDRA MEHTA Ot Z79.899 OTHER GRINDING MILL OPERATOR (CURRENT) DRUG THERAPY 07/09/2016 SAUNDRA MEHTA Ot Z87.891 PERSONAL HISTORY OF NICOTINE DEPENDENCE 08/30/2016 SOBIA BANGURA METALIZER Ot J18.9 PNEUMONIA, UNSPECIFIED ORGANISM 08/30/2016 SOBIA BANGURA METALIZER Ot J44.0 CHRONIC OBSTRUCTIVE PULMON DISEASE W ACU 08/30/2016 SOBIA BANGURA METALIZER Ot J44.1 CHRONIC OBSTRUCTIVE PULMONARY DISEASE W 08/30/2016 SOBIA BANGURA METALIZER Ot R09.02 HYPOXEMIA 08/30/2016 SOBIA BANGURA METALIZER Ot R91.1 SOLITARY PULMONARY NODULE 08/30/2016 SOBIA BANGURA METALIZER Ot Z72.0 TOBACCO USE 09/27/2016 SOBIA BANGURA METALIZER Ot J18.9 PNEUMONIA, UNSPECIFIED ORGANISM 09/27/2016 SOBIA BANGURA METALIZER Ot J44.0 CHRONIC OBSTRUCTIVE PULMON DISEASE W ACU 09/27/2016 SOBIA BANGURA METALIZER Ot J44.1 CHRONIC OBSTRUCTIVE PULMONARY DISEASE W 09/27/2016 SOBIA BANGURA METALIZER Ot R09.02 HYPOXEMIA 09/27/2016 SOBIA BANGURA METALIZER Ot R91.1 SOLITARY PULMONARY NODULE 09/27/2016 SOBIA BANGURA METALIZER Ot Z72.0 TOBACCO USE 05/02/2017 SOBIA BANGURA METALIZER Ot J84.9 INTERSTITIAL PULMONARY DISEASE, UNSPECIF 05/02/2017 SOBIA BANGURA METALIZER Ot R09.02 HYPOXEMIA 05/02/2017 SOBAI BANGURA METALIZER Ot Z72.0 TOBACCO USE 07/31/2017 Ot 427.69 [...] V72.84 EXAM PRE-OPERATIVE NOS 04/03/2018 SOBIA BANGURA METALIZER Ot J44.1 CHRONIC OBSTRUCTIVE PULMONARY DISEASE W 04/03/2018 SOBIA BANGURA METALIZER Ot J18.9 PNEUMONIA, UNSPECIFIED ORGANISM 04/03/2018 SOBIA BANGURA METALIZER Ot J44.0 CHRONIC OBSTRUCTIVE PULMON DISEASE W ACU 04/03/2018 SOBIA BANGURA METALIZER Ot J44.1 CHRONIC OBSTRUCTIVE PULMONARY DISEASE W 04/03/2018 SOBIA BANGURA METALIZER Ot R09.02 HYPOXEMIA 04/03/2018 SOBIA BANGURA METALIZER Ot R91.1 SOLITARY PULMONARY NODULE 04/03/2018 SOBIA BANGURA METALIZER Ot Z72.0 TOBACCO USE 04/03/2018 SOBIA BANGURA METALIZER Ot J84.9 INTERSTITIAL PULMONARY DISEASE, UNSPECIF 04/03/2018 SOBIA BANGURA METALIZER Ot R09.02 HYPOXEMIA 04/03/2018 SOBIA BANGURA METALIZER Ot Z72.0 TOBACCO USE 04/03/2018 SOBIA BANGURA METALIZER Ot J43.9 EMPHYSEMA, UNSPECIFIED 04/03/2018 SOBIA BANGURA METALIZER Ot Z98.890 OTHER SPECIFIED POSTPROCEDURAL STATES 04/16/2018 [...] V72.84 EXAM PRE-OPERATIVE NOS 04/16/2018 SOBIA BANGURA METALIZER Ot J44.1 CHRONIC OBSTRUCTIVE PULMONARY DISEASE W 04/16/2018 SOBIA BANGURA METALIZER Ot J18.9 PNEUMONIA, UNSPECIFIED ORGANISM 04/16/2018 SOBIA BANGURA METALIZER Ot J44.0 CHRONIC OBSTRUCTIVE PULMON DISEASE W ACU 04/16/2018 SOBIA BANGURA METALIZER Ot J44.1 CHRONIC OBSTRUCTIVE PULMONARY DISEASE W 04/16/2018 SOBIA BANGURA METALIZER Ot R09.02 HYPOXEMIA 04/16/2018 SOBIA BANGURA METALIZER Ot R91.1 SOLITARY PULMONARY NODULE 04/16/2018 SOBIA BANGURA METALIZER Ot Z72.0 TOBACCO USE 04/16/2018 SOBIA BANGURA METALIZER Ot J84.9 INTERSTITIAL PULMONARY DISEASE, UNSPECIF 04/16/2018 SOBIA BANGURA METALIZER Ot R09.02 HYPOXEMIA 04/16/2018 SOBIA BANGURA METALIZER Ot Z72.0 TOBACCO USE 04/16/2018 SOBIA BANGURA METALIZER Ot J43.9 EMPHYSEMA, UNSPECIFIED 04/16/2018 SOBIA BANGURA METALIZER Ot Z98.890 OTHER SPECIFIED POSTPROCEDURAL STATES 04/17/2018 SOBIA BANGURA APRN Ot J18.9 PNEUMONIA, UNSPECIFIED ORGANISM 04/17/2018 SOBIA BANGURA APRN Ot J44.9 CHRONIC OBSTRUCTIVE PULMONARY DISEASE, U 05/06/2018 SOBIA BANGURA METALIZER Ot J18.9 PNEUMONIA, UNSPECIFIED ORGANISM 05/06/2018 SOBIA BANGURA METALIZER Ot J44.9 CHRONIC OBSTRUCTIVE PULMONARY DISEASE, U 06/29/2018 JONNATHAN TORRES, SLICK Perez Ot I67.82 CEREBRAL ISCHEMIA 07/30/2018 SOBIA BANGURA METALIZER Ot J44.1 CHRONIC OBSTRUCTIVE PULMONARY DISEASE W 07/30/2018 SOBIA BANGURA APRN Ot Z72.0 TOBACCO USE 07/30/2018 SOBIA BANGURA METALIZER Ot Z98.890 OTHER SPECIFIED POSTPROCEDURAL STATES 08/20/2018 SOBIA BANGURA METALIZER Ot J44.1 CHRONIC OBSTRUCTIVE PULMONARY DISEASE W 08/20/2018 SOBIA BANGURA APRN Ot Z72.0 TOBACCO USE 08/20/2018 SOBIA BANGURA APRN Ot Z98.890 OTHER SPECIFIED POSTPROCEDURAL STATES 09/16/2018 JOYCELYN TORRES, TIGRE Elizabeth Ot J43.9 EMPHYSEMA, UNSPECIFIED 09/16/2018 TIGRE HIRSCH MD Ot R07.81 PLEURODYNIA 09/16/2018 TIGRE HIRSCH MD Ot R07.89 OTHER CHEST PAIN 09/16/2018 TIGRE HIRSCH MD Ot Z79.51 INTERMEDIATE (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 OF INHALED STERO 09/16/2018 TIGRE HIRSCH MD Ot Z79.52 INTERMEDIATE (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 OF SYSTEMIC STER 09/16/2018 TIGRE HIRSCH MD Ot Z79.82 INTERMEDIATE (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 09/16/2018 TIGRE HIRSCH [...] PAIN 09/18/2018 TIGRE HIRSCH MD Ot Z79.51 INTERMEDIATE (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 OF INHALED STERO 09/18/2018 TIGRE HIRSCH MD Ot Z79.52 INTERMEDIATE (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 OF SYSTEMIC STER 09/18/2018 TIGRE HIRSCH MD Ot Z79.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 (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 09/18/2018 TIGRE HIRSCH MD Ot Z82.49 FAMILY HX OF ISCHEM HEART DIS AND OTH DI 09/18/2018 TIGRE HIRSCH MD Ot Z87.09 PERSONAL HISTORY OF OTHER DISEASES OF TH 09/18/2018 TIGRE HIRSCH MD Ot Z90.2 ACQUIRED ABSENCE OF LUNG [PART OF] 12/01/2018 ZAIN GASTON MD, Ot J43.9 EMPHYSEMA, UNSPECIFIED 12/01/2018 ZAIN GASTON MD, Ot J93.9 PNEUMOTHORAX, UNSPECIFIED 12/01/2018 ZAIN GASTON MD Ot J96.21 ACUTE AND CHRONIC RESPIRATORY FAILURE [place] 12/01/2018 ZAIN GASTON MD Ot J96.22 ACUTE AND CHRONIC RESPIRATORY FAILURE [place] 12/01/2018 ZAIN GASTON MD Ot R06.02 SHORTNESS OF BREATH 12/01/2018 ZAIN GASTON MD Ot Z79.52 INTERMEDIATE (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 OF SYSTEMIC STER 12/01/2018 ZAIN GASTON MD Ot Z79.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 OPERATOR (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 12/01/2018 ZAIN GASTON MD Ot Z82.49 FAMILY HX OF ISCHEM HEART DIS AND OTH DI 12/01/2018 ZAIN GASTON MD Ot Z87.891 PERSONAL HISTORY OF NICOTINE DEPENDENCE 12/01/2018 ZAIN GASTON MD Ot Z90.2 ACQUIRED ABSENCE OF LUNG [PART OF] 01/04/2019 ARNAUD TORRES, DEJAH Galvez Ot J18.1 LOBAR PNEUMONIA, UNSPECIFIED ORGANISM 01/04/2019 ARNAUD TORRES DEJAH Galvez Ot J43.9 EMPHYSEMA, UNSPECIFIED 01/04/2019 ARNAUD TORRES, DEJAH Galvez Ot R06.02 SHORTNESS OF BREATH 01/04/2019 ARNAUD TORRES DEJAH Galvez Ot Z79.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 (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 01/04/2019 ARNAUD TORRES DEJAH Galvez Ot Z82.49 FAMILY HX OF ISCHEM HEART DIS AND OTH DI 01/08/2019 ARNAUD TORRES DEJAH Leonor Ot J18.1 LOBAR PNEUMONIA, UNSPECIFIED ORGANISM 01/08/2019 ARNAUD TORRES DEJAH Galvez Ot J43.9 EMPHYSEMA, UNSPECIFIED 01/08/2019 ARNAUD TORRES DEJAH Galvez Ot R06.02 SHORTNESS OF BREATH 01/08/2019 ARNAUD TORRES DEJAH Galvez Ot Z79.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 OPERATOR (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 01/08/2019 ARNAUD TORRES DEJAH Galvez Ot Z82.49 FAMILY HX OF ISCHEM HEART DIS AND OTH DI Procedures Code Description Performed By Performed On [...] urinalysis with reflex to culture NO NRG Whole blood basic metabolic panel - [...] 2 12/05/18 09:05 NRG Bacterial sputum culture [id number] [facility] Serum or plasma lactate measurement (moles/volume) - 12/01/18 09:35 Serum or plasma lactate measurement (moles/volume) 1.04 mmol/L 0.50-2.00 Complete blood count (CBC) with automated white blood cell (WBC) differential - 01/01/19 09:24 Blood leukocytes automated count (number/volume) 6.3 10*3/uL 4.3-11.0 Blood erythrocytes automated count (number/volume) 4.08 10*6/uL 4.35-5.85 Venous blood hemoglobin measurement (mass/volume) 13.7 g/dL 11.5-16.0 Blood hematocrit (volume fraction) 41 % 35-52 Automated erythrocyte mean corpuscular volume 101 [foz_us] 80-99 Automated erythrocyte mean corpuscular hemoglobin (mass per erythrocyte) 34 pg 25-34 Automated erythrocyte mean corpuscular hemoglobin concentration measurement (mass/volume) 33 g/dL 32-36 Automated erythrocyte distribution width ratio 12.5 % 10.0- 14.5 Automated blood platelet count (count/volume) 391 10*3/uL 130-400 Automated blood platelet mean volume measurement 8.7 [foz_us] 7.4-10.4 Automated blood neutrophils/100 leukocytes 70 % 42-75 Automated blood lymphocytes/100 leukocytes 11 % 12-44 Blood monocytes/100 leukocytes 9 % 0-12 Automated blood eosinophils/100 leukocytes 10 % 0-10 Automated blood basophils/100 leukocytes 1 % 0-10 Blood neutrophils automated count (number/volume) 4.4 10*3 1.8-7.8 Blood lymphocytes automated count (number/volume) 0.7 10*3 1.0-4.0 Blood monocytes automated count (number/volume) 0.5 10*3 0.0- 1.0 Automated eosinophil count 0.6 10*3/uL 0.0-0.3 Automated blood basophil count (count/volume) 0.1 10*3/uL 0.0-0.1 Comprehensive metabolic panel - 01/01/19 09:24 Serum or plasma sodium measurement (moles/volume) 138 mmol/L 135-145 Serum or plasma potassium measurement (moles/volume) 4.0 mmol/L 3.6-5.0 Serum or plasma chloride measurement (moles/volume) 96 mmol/L 98-107 Carbon dioxide 26 mmol/L 21-32 Serum or plasma anion gap determination (moles/volume) 16 mmol/L 5-14 Serum or plasma urea nitrogen measurement (mass/volume) 6 mg/dL 7-18 Serum or plasma creatinine measurement (mass/volume) 0.56 mg/dL 0.60-1.30 Serum or plasma urea nitrogen/creatinine mass ratio 11 NRG Serum or plasma creatinine measurement with calculation of estimated glomerular filtration rate > NRG Serum or plasma glucose measurement (mass/volume) 78 mg/dL 70-105 Serum or plasma calcium measurement (mass/volume) 9.8 mg/dL 8.5-10.1 Serum or plasma total bilirubin measurement (mass/volume) 0.4 mg/dL 0.1-1.0 Serum or plasma alkaline phosphatase measurement (enzymatic activity/volume) 102 U/L 40-136 Serum or plasma aspartate aminotransferase measurement (enzymatic activity/volume) 26 U/L 5-34 Serum or plasma alanine aminotransferase measurement (enzymatic activity/volume) 24 U/L 0-55 Serum or plasma protein measurement (mass/volume) 6.7 g/dL 6.4-8.2 Serum or plasma albumin measurement (mass/volume) 3.9 g/dL 3.2-4.5 CALCIUM CORRECTED 9.9 mg/dL 8.5-10.1 Blood lactic acid measurement (moles/volume) - 01/01/19 10:42 Blood lactic acid measurement (moles/volume) 0.69 mmol/L 0.50- 2.00 Bacterial blood culture - 01/01/19 10:42 Bacterial blood culture NG NRG Bacterial blood culture - 01/01/19 10:51 Bacterial blood culture NG NRG Encounters ACCT No. Visit Date/Time Discharge Status Pt. Type Provider Facility Loc./Unit Complaint [id number] 11/04/2013 09:06:00 11/04/2013 23:59:59 CLS Outpatient SUSHMA MCRAE DO [id number] 05/27/2013 10:35:00 05/27/2013 23:59:59 CLS Outpatient SUSHMA MCRAE DO [id number] 01/01/2019 09:14:00 01/01/2019 09:14:00 CAN Outpatient ARNAUD TORRES, DEJAH Galvez [facility] ER R PNEUMOTHORAX AND L PNEUMONIA [id number] 12/01/2018 07:12:00 12/01/2018 12:32:00 DIS Emergency MARILIN TORRES, ZAIN Whitney [facility] ER SOA [id number] 09/16/2018 08:11:00 09/16/2018 09:53:00 DIS Emergency JOYCELYN TORRES, TIGRE T [facility] ER R LUNG PAIN;SOB [id number] 07/31/2018 14:58:00 07/31/2018 23:59:59 CLS Preadmit WILLEM SOBIA E METALIZER [facility] RAD TOBACCO USE,COPD [id number] 07/28/2018 09:30:00 07/28/2018 23:59:59 CLS Outpatient WILLEM SOBIA E METALIZER [facility] RAD J43.9 COPD [id number] 06/24/2018 11:53:00 06/24/2018 23:59:59 CLS Outpatient JONNATHAN TORRES, SLICK Perez [facility] RAD PERSISTENT HEADACHE, LEFT SIDE [id number] 04/16/2018 08:50:00 04/16/2018 23:59:59 CLS Outpatient WILLEM, SOBIA E METALIZER [facility] RAD J18.9,J43.9 [id number] 08/04/2017 09:15:00 08/04/2017 23:59:59 CLS Outpatient WILLEM, SOBIA E METALIZER [facility] RAD J43.9 COPD [id number] 04/11/2017 11:07:00 04/11/2017 23:59:59 CLS Outpatient WILLEM, SOBIA E METALIZER [facility] RAD J18.9,Z72.0,R09.02 [id number] 08/26/2016 08:11:00 08/26/2016 23:59:59 CLS Outpatient WILLEM, SOBIA E METALIZER [facility] RAD COPD,TOBACCO USE, LUNG NODULE SEEN ON IMAGING STUD [id number] 07/08/2016 17:16:00 07/08/2016 21:14:00 DIS Emergency SAUNDRA MEHTA [facility] ER SOA/LUNG INFECTION [id number] 06/29/2016 08:52:00 06/29/2016 10:01:00 DIS Emergency JING TORRES, FRAN Mcneill [facility] ER FEVER/GENERALIZED ILLNESS [id number] 07/19/2015 09:41:00 07/19/2015 23:59:59 CLS Outpatient SOBIA BANGURA APRN [facility] RAD COPD [id number] 04/05/2015 07:21:00 04/05/2015 12:10:00 DIS Outpatient BRANDEE MARQUEZ MD [facility] SDC SCREENING [id number] 03/30/2015 08:33:00 03/30/2015 23:59:59 CLS Outpatient BRANDEE MARQUEZ MD [facility] PREOP SCREENING [id number] 08/15/2014 08:07:00 08/15/2014 23:59:59 CLS Outpatient EBENEZER BEVERLY DO [facility] RAD COPD,DYSPNEA [id number] 08/08/2014 08:29:00 08/08/2014 23:59:59 CLS Outpatient EBENEZER BEVERLY DO [facility] LAB COPD [id number] 08/02/2014 08:00:00 08/02/2014 23:59:59 CLS Preadmit EBENEZER BEVERLY DO [facility] PULM COPD,PALPITATIONS,DYSPNEA [id number] 07/19/2014 08:30:00 08/01/2014 00:01:00 DIS Outpatient EBENEZER BEVERLY DO [facility] PULM COPD,PALPITATIONS,DYSPNEA [id number] 05/04/2014 07:06:00 05/04/2014 23:59:59 CLS Outpatient EBENEZER BEVERLY DO [facility] RT COPD,DYSPNEA [id number] 04/15/2014 12:26:00 04/18/2014 11:03:00 DIS Inpatient LATANYA ALFREDO MD [facility] 4TH SWB,LOW BLOOD PRESSURE [id number] 04/10/2014 15:53:00 04/15/2014 12:10:00 DIS Inpatient LATANYA ALFREDO MD [facility] CSD L SIDED PLEURITIC CHEST PAIN [id number] 09/29/2012 08:54:00 12/28/2012 00:01:00 DIS Outpatient EKTA MARLOW [facility] CARD PALPITATIONS,PVC'S [id number] 08/17/2014 14:13:00 Document Registration [id number] 12/29/2012 09:00:00 Document Registration [id number] 09/28/2012 10:15:00 Document Registration [id number] 03/24/2012 10:55:00 Document Registration [id number] 03/23/2012 13:48:00 Document Registration [id number] 10/14/2011 07:32:00 Document Registration [id number] 07/04/2009 08:18:00 Document Registration [id number] 06/15/2009 08:43:00 Document Registration [id number] 03/22/2009 08:09:00 Document Registration
[2019-01-23 09:42] LABS: BASOPHILS % (AUTO) 0 % (0-10); EOSINOPHILS # (AUTO) 0.2 10^3/uL (0.0-0.3); EOSINOPHILS % (AUTO) 1 % (0-10); HEMATOCRIT 41 % (35-52); HEMOGLOBIN 13.1 G/DL (11.5-16.0); LYMPHOCYTES # (AUTO) 0.2 X 10^3 (1.0-4.0); LYMPHOCYTES % (AUTO) 2 % (12-44); MEAN CORPUSCULAR HEMOGLOBIN 32 PG (25-34); MEAN CORPUSCULAR HGB CONC 32 G/DL (32-36); MEAN CORPUSCULAR VOLUME 101 FL (80-99); MEAN PLATELET VOLUME 8.6 FL (7.4-10.4); MONOCYTES # (AUTO) 0.7 X 10^3 (0.0-1.0); MONOCYTES % (AUTO) 5 % (0-12); NEUTROPHILS # (AUTO) 13.3 X 10^3 (1.8-7.8); NEUTROPHILS % (AUTO) 92 % (42-75); PLATELET COUNT 559 10^3/uL (130-400); RED CELL DISTRIBUTION WIDTH 13.7 % (10.0-14.5); WHITE BLOOD COUNT 14.4 10^3/uL (4.3-11.0)
[2019-01-23 09:46] LABS: INR 0.9 (0.8-1.4); PROTHROMBIN TIME PATIENT 12.5 SEC (12.2-14.7)
[2019-01-23 09:56] LABS: ALANINE AMINOTRANSFERASE 55 U/L (0-55); ALBUMIN 3.6 GM/DL (3.2-4.5); ALKALINE PHOSPHATASE 330 U/L (40-136); BILIRUBIN,TOTAL 0.7 MG/DL (0.1-1.0); BUN/CREATININE RATIO 9; CALCIUM 10.1 MG/DL (8.5-10.1); CARBON DIOXIDE 26 MMOL/L (21-32); CHLORIDE 93 MMOL/L (98-107); CREATININE SERUM 0.57 MG/DL (0.60-1.30); GFR ESTIMATED > 60; GLUCOSE 100 MG/DL (70-105); SODIUM 133 MMOL/L (135-145)
[2019-01-23 10:14] LABS: BAND NEUTROPHILS 0 %; BASOPHILS % (MANUAL) 0 %; EOSINOPHILS % (MANUAL) 1 %; LYMPHOCYTES % (MANUAL) 4 %; MONOCYTES % (MANUAL) 5 %; NEUTROPHILS % (MANUAL) 90 %; RBC MORPH NORMAL
[2019-01-23 10:31] LABS: POTASSIUM 4.1 MMOL/L (3.6-5.0)
[2019-01-23 10:41] LABS: TOTAL PROTEIN 6.8 GM/DL (6.4-8.2)
--- NOTE | 2019-01-23 10:46 | Diagnostic Imaging Report ---
Indication: Shortness of breath. Comparison made with prior examination from 01/01/19. Findings: There's been interval placement of a right thoracostomy tube with marked improvement in the right pneumothorax which is now minimal. There is cardiomegaly. There are chronic appearing bibasal infiltrates as well as marked left periapical scarring. There appears to be some venous congestion. Impression: Interval placement of a thoracostomy tube with marked improvement in the pneumothorax. Chronic appearing bibasilar interstitial infiltrates as well as marked left periapical pleural thickening and/or scarring. Dictated by: Dictated on workstation # [id number]
--- NOTE | 2019-01-23 11:06 | ED General ---
General Chief Complaint: Fever-Adult/Adol Stated Complaint: SOA Nursing Triage Note: PT BROUGHT IN BY WHEELCHAIR TO RM 3 WITH COMPLAINT OF FEVER AND SOA. STATES SHE WOKE UP THIS AM FEELING FEVERISH. PT WAS RECENTLY DISCHARGED FROM FOR COLLAPSED LUNG REPAIR. PT HAS DRAINING TUBE TO RIGHT LUNG. STATES DISCHARGE INSTRUCTIONS STATE TO COME TO ER IF FEVER OVER 100F Nursing Sepsis Screen: No Definite Risk Source of Information: Patient Exam Limitations: No Limitations History of Present Illness Date Seen by Provider: Jan 23, 2019 Time Seen by Provider: 09:30 Initial Comments This 73 year old woman presents to the ER with fever, chills and SOA. She suffered a spontaneous pneumothorax December 01. She was transferred to [place] where she had chest tubes placed and ultimately had a pleurodesis. She had complications related to chemical pleurodesis and was transferred to [facility] where she underwent a decortication. She presently has [address]. 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 Over the last 24 hours she has developed fever and chills with temperature up to 100.6 at home and 100.4 here. She notes a decrease in drainage from her chest tubes in recent days. Her cardiothoracic surgeon at [facility] is Dr. Stanford. I did have a discussion with him and he states patient does have changes of an COPD at baseline. She requires up to 6 L of oxygen by nasal cannula to maintain any le [place]oug[place] of activity. Patient reports her home health nurse did not show yesterday to change dressings. She has not noticed any increase in drainage around the dressings. Allergies and Home Medications Allergies Coded Allergies: No Known Drug Allergies (Verified , 04/05/15) Home Medications Albuterol Sulfate 18 Gm Hfa.aer.ad, 18 GM IH DAILY, (Reported) Aspirin 325 Mg Tab, 325 MG PO HS, (Reported) Cyanocobalamin 1,000 Mcg/Ml Vial, 1,000 MG IM MONTHLY PRN for WEAKNESS, (Reported) Levofloxacin 500 Mg Tablet, 500 MG PO DAILY Prescribed by: SAUNDRA CARTER on 07/08/162107 Prednisone 20 Mg Tab, 60 MG PO UD 3 tab po daily x7d, then 2 tabs po daily x7d, then 1 tab daily x7d Prescribed by: SAUNDRA CARTER on 11/21/16 2103 [Breo] , 1 PUFF INH DAILY PRN for SHORTNESS OF BREATH, (Reported) Patient Home Medication List Home Medication List Reviewed: Yes Review of Systems Review of Systems Constitutional: see HPI EENTM: no symptoms reported Respiratory: see HPI Cardiovascular: no symptoms reported Gastrointestinal: no symptoms reported Genitourinary: no symptoms reported : No Musculoskeletal: no symptoms reported Skin: no symptoms reported Psychiatric/Neurological: No Symptoms Reported Hematologic/Lymphatic: No Symptoms Reported Immunological/Allergic: no symptoms reported Past Pvowkkd-Ozhyhk-Khjpxa Hx Past Med/Social Hx: Reviewed and Corrections made Patient Social History Alcohol Use: Occasionally Uses Number of Drinks Today: Alcohol Beverage of Choice: Wine Recreational Drug Use: No Smoking Status: Former Smoker Type Used: Cigarettes Former Smoker, Quit: Dec 06, 2013 Recent Foreign Travel: No Contact w/Someone Who Travel: No Recent Infectious Disease Expo: No Recent Hopitalizations: Yes ([facility] FOR COLLAPSED LUNG) Immunizations Up To Date Tetanus Booster (TDap): Unknown Date of Pneumonia Vaccine: Nov 03, 2014 Date of Influenza Vaccine: May 18, 2016 Past Medical History Surgeries: Yes (chemical pleurodesis, pulmonary decortication) Lobectomy Respiratory: Yes (COPD, PNEUMOTHORAX) COPD, Emphysema Cardiac: No Neurological: No Reproductive Disorders: No Sexually Transmitted Disease: No HIV/AIDS: No Genitourinary: No Gastrointestinal: No Musculoskeletal: No Endocrine: No Hearing Impairment: Denies Cancer: No Psychosocial: No Integumentary: No Blood Disorders: No Adverse Reaction/Blood Tranf: No Family Medical History Cardiovascular disease 19 MOTHER G8 SISTER Completed stroke 19 MOTHER Parkinson's disease 19 FATHER No Pertinent Family Hx Physical Exam Vital Signs Vital Signs - First Documented Capillary Refill : Less Than 3 Seconds Height, Weight, BMI Height: 5'2.00" Weight: 100lbs. 3.0oz. [id number]; 17.92 BMI Method:Stated General Appearance: WD/WN, Mild Distress, Thin HEENT: PERRL/EOMI, Normal ENT Inspection Neck: Normal Inspection Respiratory: No Accessory Muscle Use, No Respiratory Distress, Crackles (right lower lung), Decreased Breath Sounds, Other (increased work of breathing with tachypnea) Cardiovascular: Regular Rate, Rhythm, No Edema, No Murmur Gastrointestinal: Non Tender, Soft Extremity: Normal Capillary Refill, Normal Inspection, No Pedal Edema Neurologic/Psychiatric: Alert, Oriented x3, No Motor/Sensory Deficits, 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, membership director II-XII Norm as Tested Focused Exam Lactate Level 01/23/19 09:09: Lactic Acid Level 1.34 Lactic Acid Level Procedures/Interventions Date of ETT Placement: Dec 01, 2018 Time of ETT Placement: 711 Progress/Results/Core Measures Suspected Sepsis Recent Fever Within 48 Hours: Yes Infection Criteria Present: None New/Unexplained Altered Menta: No Sepsis Screen: No Definite Risk SIRS Temperature:100.4 Pulse: 118 Respiratory Rate: 22 Laboratory Tests 01/23/19 09:09: White Blood Count 14.4H Blood Pressure 146 /85 Mean: 105 01/23/19 09:09: Lactic Acid Level 1.34 Laboratory Tests 01/23/19 09:09: Creatinine 0.57L, INR Comment 0.9, Platelet Count 559H, Total Bilirubin 0.7 Results/Orders Lab Results Laboratory Tests Test 01/23/19 09:09 Range/Units White Blood Count 14.4 H 4.3-11.0 10^3/uL Red Blood Count 4.08 L 4.35-5.85 10^6/uL Hemoglobin 13.1 11.5-16.0 G/DL Hematocrit 41 35-52 % Mean Corpuscular Volume 101 H 80-99 FL Mean Corpuscular Hemoglobin 32 25-34 PG Mean Corpuscular Hemoglobin Concent 32 32-36 G/DL Red Cell Distribution Width 13.7 10.0-14.5 % Platelet Count 559 H 130-400 10^3/uL Mean Platelet Volume 8.6 7.4-10.4 FL Neutrophils (%) (Auto) 92 H 42-75 % Lymphocytes (%) (Auto) 2 L 12-44 % Monocytes (%) (Auto) 5 0-12 % Eosinophils (%) (Auto) 1 0-10 % Basophils (%) (Auto) 0 0-10 % Neutrophils # (Auto) 13.3 H 1.8-7.8 X 10^3 Lymphocytes # (Auto) 0.2 L 1.0-4.0 X 10^3 Monocytes # (Auto) 0.7 0.0-1.0 X 10^3 Eosinophils # (Auto) 0.2 0.0-0.3 10^3/uL Basophils # (Auto) 0.0 0.0-0.1 10^3/uL Neutrophils % (Manual) 90 % Lymphocytes % (Manual) 4 % Monocytes % (Manual) 5 % Eosinophils % (Manual) 1 % Basophils % (Manual) 0 % Band Neutrophils 0 % Blood Morphology Comment NORMAL Prothrombin Time 12.5 12.2-14.7 SEC INR Comment 0.9 0.8-1.4 Activated Partial Thromboplast Time 26 24-35 SEC Sodium Level 133 L 135-145 MMOL/L Potassium Level 4.1 3.6-5.0 MMOL/L Chloride Level 93 L 98-107 MMOL/L Carbon Dioxide Level 26 21-32 MMOL/L Anion Gap 14 5-14 MMOL/L Blood Urea Nitrogen 5 L 7-18 MG/DL Creatinine 0.57 L 0.60-1.30 MG/DL Estimat Glomerular Filtration Rate > 60 BUN/Creatinine Ratio 9 Glucose Level 100 70-105 MG/DL Lactic Acid Level 1.34 0.50-2.00 MMOL/L Calcium Level 10.1 8.5-10.1 MG/DL Corrected Calcium 10.4 H 8.5-10.1 MG/DL Total Bilirubin 0.7 0.1-1.0 MG/DL Aspartate Amino Transf (AST/SGOT) 47 H 5-34 U/L Alanine Aminotransferase (ALT/SGPT) 55 0-55 U/L Alkaline Phosphatase 330 H 40-136 U/L Total Protein 6.8 6.4-8.2 GM/DL Albumin 3.6 3.2-4.5 GM/DL My Orders Orders - TIGRE HIRSCH MD Cbc With Automated Diff (01/23/19:) Comprehensive Metabolic Panel (01/23/19:) Blood Culture (01/23/19:31) Protime With Inr (01/23/19:) Partial Thromboplastin Time (01/23/19:31) Chest 1 View, Ap/Pa Only (01/23/19:) Ed Iv/Invasive Line Start (01/23/19:31) Ed Iv/Invasive Line Start (01/23/19:31) Vital Signs Adult Sepsis Patie Q15M (01/23/19:31) O2 (01/23/19:31) Remove Rings In Anticipation O (01/23/19:31) Lactic Acid Analyzer (6/8/19 09:31) Manual Differential (01/23/19 09:09) Piperacillin/Tazobactam (Bulk) (Zosyn In (01/23/19 11:30) Ns Iv 1000 Ml (Sodium Chloride 0.9%) (01/23/19 11:22) Methylprednisolone Sod Succ (Solu-Medrol (01/23/19 12:15) General/Regular (01/23/19 Lunch) Acetaminophen Tablet/Caplet (Tylenol T (01/23/19 13:30) Medications Given in ED Current Medications Medications Dose Ordered Sig/Mark Route Start Time Stop Time Status Last Admin Dose Admin Acetaminophen 650 mg ONCE ONCE PO 01/23/19 13:30 01/23/19 13:31 DC 01/23/19 13:30 650 MG Methylprednisolone Sodium Succinate 62.5 mg ONCE ONCE IVP 01/23/19 12:15 01/23/19 12:16 DC 01/23/19 12:28 62.5 MG Piperacillin Sod/ Tazobactam Sod 4.5 gm/Sodium Chloride 120 ml @ 240 mls/hr ONCE ONCE IV 01/23/19 11:30 01/23/19 11:59 DC 01/23/19 11:52 240 MLS/HR Sodium Chloride 1,000 ml @ 0 mls/hr Q0M ONCE IV 01/23/19 11:22 01/23/19 11:23 DC 01/23/19 11:52 1,000 MLS/HR Vital Signs/I&O 01/23/19 01/23/19 01/23/19 08:57 08:57 13:50 Temp 100.4 Pulse 118 124 Resp 22 38 B/P (MAP) 146/85 (105) 136/62 (86) Pulse Ox 92 95 95 O2 Delivery Nasal Cannula Nasal Cannula Nasal Cannula O2 Flow Rate 6.00 6.00 4.00 Capillary Refill : Less Than 3 Seconds Blood Pressure Mean: 105 Progress Note : Time: 00:40 Progress Note I discussed the case with Dr. Stanford who reviewed the chest x-ray. He agreed with treatment with Zosyn. He recommended antibiotic and steroid therapy. Solu-Medrol 62.5 mg will be given. Patient was not wheezing and did not feel she needed a breathing treatment. Disposition was discussed. Since patient has a complicated history and severe COPD disease, transferred to [facility] was felt important. Presently there is no processing lead or cardiothoracic surgeon at [facility] in [place]. Continuity of care is important in this case and all parties including the patient agree that transfer to [facility] as the most appropriate course of action. Diagnostic Imaging Diagonstic Imaging: Xray Plain Films/CT/US/NM/MRI: chest Comments Chest x-ray viewed by me and report reviewed. See report below: NAME: RICK BOOKER [facility] REC#: [id number] PT STATUS: REG ER : 1945 PHYSICIAN: TIGRE HIRSCH MD ADMIT DATE: 01/23/19/ER Draft Date of Exam:01/23/19 CHEST 1 VIEW, AP/PA ONLY Indication: Shortness of breath. Comparison made with prior examination from 01/01/19. Findings: There's been interval placement of a right thoracostomy tube with marked improvement in the right pneumothorax which is now minimal. There is cardiomegaly. There are chronic appearing bibasal infiltrates as well as marked left periapical scarring. There appears to be some venous congestion. Impression: Interval placement of a thoracostomy tube with marked improvement in the pneumothorax. Chronic appearing bibasilar interstitial infiltrates as well as marked left periapical pleural thickening and/or scarring. Dictated on workstation # [id number] Dict: 01/23/19 1037 Trans: 01/23/19 1046 [facility] [id number] Interpreted by: ORA MACHADO MD Departure Impression Primary Impression: Sepsis Qualified Codes: A41.9 - Sepsis, unspecified organism Additional Impressions: COPD exacerbation End stage COPD Disposition: XFER SHT-TRM HOSP Condition: Stable Transfer Time Spoke to Accepting Phy: 11:30 Transfer Progress Notes Accepted by Dr. Stanford. Transfer Time: 13:50 Transfer Facility: [facility] Method of Transfer: EMS Departure-Patient Inst. Referrals: SLICK DE SANTIAGO MD (PCP/Family) Primary Care Physician TIGRE HIRSCH MD Jan 23, 2019 11:06
[2019-01-23] MEDS ORDERED: NS IV 1000 ML 1,000 ML IV ONE (11:22)
[2019-01-23] MEDS ORDERED: PIPERACILLIN/TAZOBACTAM (BULK) 4.5 GM in NS (IVPB) 100 ML IV ONE (11:30)
[2019-01-23] MEDS ORDERED: methylPREDNISolone 125 MG (Solu-MEDROL) VIAL IVP ONE (12:15)
[2019-01-23] MEDS ORDERED: ACETAMINOPHEN 325 MG TABLET PO ONE (13:30)
[2019-01-23 13:50] VITALS: BP 136/62
== END 2019-01-23 13:50 | disposition short-term general hospital (02) ==
LOC: EDUNIT# 08:53 → ER 08:55
DX: A41.9 Sepsis, unspecified organism (principal); J43.9 Emphysema, unspecified; Z79.52 Long term (current) use of systemic steroids; Z79.82 Long term (current) use of aspirin; Z87.891 Personal history of nicotine dependence; Z90.2 Acquired absence of lung [part of]; Z87.09 Personal history of other diseases of the respiratory system; Z82.49 Family history of ischemic heart disease and other diseases of the circulatory system
CPT/HCPCS: 36415; 71045; 80053; 83605; 85007; 85027; 85610; 85730; 87040; 96365; 96375

== ENCOUNTER → 2019-02-09 | Outpatient (CLI) | payer MEDICARE, OTHER ==
--- NOTE | 2019-02-09 11:50 | Diagnostic Imaging Report ---
INDICATION: Pneumonia, followup. TECHNIQUE: Two view chest 10:55 a.m. CORRELATION STUDY: 01/23/2019 FINDINGS: Right-sided tube has been removed. Right apical pleural thickening is noted and appears slightly diminished with slight cavitation suggested about the right lung apex. Irregular parenchymal density does persist over the right upper lobe. Improved aeration to the right lung base. There may be some residual pleural thickening versus pleural effusion. Rather significant consolidation at the left lung apex along with retraction of the left suprahilar structures overall likely relatively stable. Mediastinal configuration appearing unchanged. IMPRESSION: 1. Right-sided chest tube removal without significant pneumothorax. 2. Persistent consolidation with suggestive cavitary appearance about the right lung apex does persist with some improving aeration in the right lung base. 3. Chronic appearing change about the left lung apex generally stable. Dictated by: Dictated on workstation # [id number]
== END ==
LOC: RAD 10:33
PROVIDERS: ATTEND Nurse Practitioner Family
DX: J18.1 Lobar pneumonia, unspecified organism (principal)
CPT/HCPCS: 71046

== ENCOUNTER → 2019-02-11 | Outpatient (CLI) | payer MEDICARE, OTHER ==
[~2019-02-11] MED LIST changes: +CATHETER FLUSH 10 ML SYR IV PRN; +HOLD METFORMIN - RECEIVED CONTRAST 20 ML VIAL IV SCH; +IOHEXOL 350 MG/ML 100 ML (OMNIPAQUE 350) VIAL IV ONE; +NS 100 ML (IVPB) BAG IV ONE
[2019-02-11 08:48] LABS: BUN/CREATININE RATIO 7; CREATININE SERUM 0.55 MG/DL (0.60-1.30); GFR ESTIMATED > 60
--- NOTE | 2019-02-11 09:42 | Diagnostic Imaging Report ---
PROCEDURE: CT chest with contrast only. TECHNIQUE: Multiple contiguous axial images were obtained through the chest after administration of intravenous contrast. Auto Exposure Controls were utilized during the CT exam to meet ALARA standards for radiation dose reduction. INDICATION: Hypoxemia and COPD. COMPARISON: Correlation is made with prior CT chest from 01/01/2019. FINDINGS: Chronic consolidation and volume loss in the left upper lobe with retraction of the left hilum is again noted. Right apical pleural-parenchymal changes is fairly similar to prior study. Previously noted large right pneumothorax has resolved. The right chest tube has been removed. Severe emphysematous changes in both lungs persist. No parenchymal mass is seen. There is trace pleural fluid or pleural thickening on the right. No pericardial fluid is identified. No definite axillary, hilar or mediastinal lymphadenopathy is seen. Upper abdomen is unremarkable. IMPRESSION: Resolution of large right sided pneumothorax with removal of right-sided chest tube since prior CT one month earlier. Chronic left upper lobe volume loss and hilar retraction appears stable. Severe emphysematous changes in both lungs persist. Overall appearance is similar to prior CT chest dating back to July 2017. Dictated by: Dictated on workstation # [id number]
== END ==
LOC: RAD 08:02
PROVIDERS: ATTEND Nurse Practitioner Family
DX: J43.9 Emphysema, unspecified (principal); J30.9 Allergic rhinitis, unspecified; G47.34 Idiopathic sleep related nonobstructive alveolar hypoventilation; Z87.09 Personal history of other diseases of the respiratory system
CPT/HCPCS: 36415; 71260; 82565; 84520

== ENCOUNTER → 2019-05-25 | Outpatient (CLI) | payer MEDICARE, OTHER ==
[~2019-05-25] MED LIST changes: -CATHETER FLUSH 10 ML SYR IV PRN; -HOLD METFORMIN - RECEIVED CONTRAST 20 ML VIAL IV SCH; -IOHEXOL 350 MG/ML 100 ML (OMNIPAQUE 350) VIAL IV ONE; -NS 100 ML (IVPB) BAG IV ONE
--- NOTE | 2019-05-25 12:17 | Diagnostic Imaging Report ---
INDICATION: Sacral pain, post fall. TECHNIQUE: AP and lateral views of the sacrum and coccyx were performed at 11:08 AM. CORRELATION STUDY: None. FINDINGS: This is fairly compromised limited imaging of the sacrum and coccyx. There is grade 2 spondylolisthesis of L4 on L5, likely owing to an underlying pars articularis defect. There is resultant disc space narrowing. There is a horizontal lucency through the mid sacrum at approximately the S3 level, consistent with a nondisplaced sacral fracture. The SI joints show slight asymmetric sclerosis on the left. The visualized pubic rami appear to be intact. IMPRESSION: 1. Minimally displaced transversely oriented fracture of the mid sacrum. 2. Grade 2 spondylolisthesis of L4 on L5, likely owing to a chronic pars articularis defect. Called to Dr. Obed Zelaya at 12:16 p.m. by cvb. Dictated by: Dictated on workstation # [id number]
== END ==
LOC: RAD 10:33
PROVIDERS: ATTEND Family Medicine
DX: M53.3 Sacrococcygeal disorders, not elsewhere classified (principal); M43.16 Spondylolisthesis, lumbar region
CPT/HCPCS: 72220

== ENCOUNTER → 2019-06-21 | Outpatient (CLI) | payer MEDICARE, OTHER ==
[2019-06-21 14:30] LABS: BASOPHILS % (AUTO) 0 % (0-10); EOSINOPHILS # (AUTO) 0.1 10^3/uL (0.0-0.3); EOSINOPHILS % (AUTO) 0 % (0-10); HEMATOCRIT 40 % (35-52); HEMOGLOBIN 12.9 G/DL (11.5-16.0); LYMPHOCYTES # (AUTO) 0.7 X 10^3 (1.0-4.0); LYMPHOCYTES % (AUTO) 6 % (12-44); MEAN CORPUSCULAR HEMOGLOBIN 31 PG (25-34); MEAN CORPUSCULAR HGB CONC 32 G/DL (32-36); MEAN CORPUSCULAR VOLUME 98 FL (80-99); MONOCYTES # (AUTO) 1.3 X 10^3 (0.0-1.0); MONOCYTES % (AUTO) 11 % (0-12); NEUTROPHILS # (AUTO) 10.1 X 10^3 (1.8-7.8); NEUTROPHILS % (AUTO) 83 % (42-75); PLATELET COUNT 266 10^3/uL (130-400); RED CELL DISTRIBUTION WIDTH 14.7 % (10.0-14.5); WHITE BLOOD COUNT 12.3 10^3/uL (4.3-11.0)
[2019-06-21 14:51] LABS: BAND NEUTROPHILS 1 %; BASOPHILS % (MANUAL) 0 %; EOSINOPHILS % (MANUAL) 1 %; LYMPHOCYTES % (MANUAL) 5 %; MONOCYTES % (MANUAL) 14 %; NEUTROPHILS % (MANUAL) 79 %; RBC MORPH NORMAL
--- NOTE | 2019-06-21 16:24 | Diagnostic Imaging Report ---
INDICATION: Pneumonia. COMPARISON: 02/09/2019. FINDINGS: The heart size is stable. There is unchanged marked scarring in the lung apices, left greater than right. There is no pleural effusion or pneumothorax. The mediastinum is grossly unremarkable. IMPRESSION: Persistent marked scarring in the lung apices, left greater than right, likely due to previous left upper lobe lobectomy or chronic atelectasis. Dictated by: Dictated on workstation # [id number]
== END ==
LOC: RAD 14:16
PROVIDERS: ATTEND Nurse Practitioner Family
DX: J44.9 Chronic obstructive pulmonary disease, unspecified (principal); J18.9 Pneumonia, unspecified organism; J98.4 Other disorders of lung
CPT/HCPCS: 36415; 71046; 85007; 85027

== ENCOUNTER → 2019-07-19 | Outpatient (CLI) | payer MEDICARE, OTHER ==
--- NOTE | 2019-07-19 12:28 | Diagnostic Imaging Report ---
PROCEDURE: CT chest without contrast. TECHNIQUE: Multiple contiguous axial images were obtained through the chest without the use of intravenous contrast. Auto Exposure Controls were utilized during the CT exam to meet ALARA standards for radiation dose reduction. INDICATION: Shortness of breath. COPD. Stopped smoking five years ago. COMPARISON: 02/11/2019. FINDINGS: The heart size is within normal limits. No pericardial effusion is present. The main pulmonary artery is somewhat dilated. There is no mediastinal, hilar, or axillary lymphadenopathy. Consolidative opacities are again noted in the lung apices, representing scarring. There is associated bronchiectasis. Diffuse centrilobular and paraseptal emphysema is seen throughout the lungs. A new spiculated nodule is seen in the right upper lobe measuring 0.6 cm (image 62 series 4). Subsegmental atelectasis and scarring is seen in the bilateral lungs bases. No central endobronchial obstructing lesions are identified. There is no pleural effusion or pneumothorax. The osseous structures demonstrate no acute abnormalities. Limited views of the upper abdominal structures demonstrate no acute abnormalities. Both adrenal glands are unremarkable. IMPRESSION: 1. New spiculated nodule in the right upper lobe measuring 0.6 cm. This may represent a focus of inflammation or infection; however, malignancy is not excluded. Recommend short-interval follow-up in three to six months to reevaluate. 2. Severe emphysema throughout the lungs with consolidative scarring in the lung apices and associated bronchiectasis. Subsegmental atelectasis and scarring is seen in the bilateral lung bases as well. 3. Dilated main pulmonary artery. This appearance can be seen with pulmonary hypertension. Dictated by: Dictated on workstation # [id number]
== END ==
LOC: RAD 09:40
PROVIDERS: ATTEND Nurse Practitioner Family
DX: J43.9 Emphysema, unspecified (principal); R91.1 Solitary pulmonary nodule; J98.11 Atelectasis; J30.9 Allergic rhinitis, unspecified; R09.02 Hypoxemia; R06.02 Shortness of breath; Z72.0 Tobacco use
CPT/HCPCS: 71250

== ENCOUNTER → 2020-03-23 | Outpatient (CLI) | payer MEDICARE, OTHER ==
[~2020-03-23] MED LIST changes: +HOLD METFORMIN - RECEIVED CONTRAST 20 ML VIAL IV SCH; +IOHEXOL 350 MG/ML 100 ML (OMNIPAQUE 350) VIAL IV ONE; -MONT10TA24; +MONT10TA26; +NS 100 ML (IVPB) BAG IV ONE
[2020-03-23 07:48] LABS: BUN/CREATININE RATIO 12; CREATININE SERUM 0.66 MG/DL (0.60-1.30); GFR ESTIMATED > 60
--- NOTE | 2020-03-23 08:57 | Diagnostic Imaging Report ---
PROCEDURE: CT chest with contrast only. TECHNIQUE: Multiple contiguous axial images were obtained through the chest after administration of intravenous contrast. Auto Exposure Controls were utilized during the CT exam to meet ALARA standards for radiation dose reduction. INDICATION: COPD. COMPARISON: 07/19/2019, 01/01/2019, and 08/04/2017 FINDINGS: No significant adenopathy within the chest. Scattered vascular calcifications without aneurysmal dilatation of the thoracic aorta. No significant pericardial effusion. Biapical pleural parenchymal scarring is again identified, greatest within the left lung. There is associated advanced background centrilobular and paraseptal emphysematous changes. Bronchiectatic changes within the left upper lobe. The previously noted new 0.6 cm right lower lobe pulmonary nodule is no longer visualized. New predominantly groundglass though partially dense nodular density is identified within the posterior aspect of the right lower lobe measuring up to 1.6 cm. 0.4 cm subpleural right middle lobe pulmonary nodule is stable. No pneumothorax. The trachea is patent. The visualized upper abdomen is unremarkable. [place] right curvature of the spine. Scattered osseous degenerative changes without acute osseous abnormality. IMPRESSION: Interval development of a new part solid and part groundglass 1.6 cm right lower lobe consolidation. This is favored related to an underlying infectious or inflammatory process. Follow-up CT in 1-3 months is recommended to reevaluate. Interval resolution of previously noted new right lower lobe pulmonary nodule. Therefore, this was benign. Severe background fibroemphysematous changes. Dictated by: Dictated on workstation # [id number]
== END ==
LOC: RAD 07:12
PROVIDERS: ATTEND Nurse Practitioner Family
DX: J43.9 Emphysema, unspecified (principal); R09.02 Hypoxemia; R91.8 Other nonspecific abnormal finding of lung field; F17.211 Nicotine dependence, cigarettes, in remission
CPT/HCPCS: 36415; 71260; 82565; 84520

== ENCOUNTER → 2020-05-22 | Outpatient (CLI) | payer MEDICARE, OTHER ==
[2020-05-22 07:28] LABS: BUN/CREATININE RATIO 13; CREATININE SERUM 0.69 MG/DL (0.60-1.30); GFR ESTIMATED > 60
--- NOTE | 2020-05-22 09:00 | Diagnostic Imaging Report ---
PROCEDURE: CT chest with contrast only. TECHNIQUE: Multiple contiguous axial images were obtained through the chest after administration of intravenous contrast. Auto Exposure Controls were utilized during the CT exam to meet ALARA standards for radiation dose reduction. INDICATION: COPD, hypoxemia, exertional dyspnea. COMPARISON: 03/23/2020. FINDINGS: There has been apparent previous left lower lobectomy with the residual left lung showing apical pleural-parenchymal scarring, bronchiectasis, and pleural thickening, unchanged. Centrilobular emphysematous changes extensively involve the bilateral lungs. Some chronic post surgical volume loss on the left with leftward shift of the cardiomediastinum is stable. Some groundglass opacity in the top of the superior segment of the right lower lobe as well as the apical portion of the right upper lobe with some chronic fibrosis and cyst formation is stable. No new abnormality is apparent. There has been no adverse development. No pneumothorax. The thoracic aorta is patent and nonaneurysmal. No pulmonary arterial filling defect or PE is demonstrated. No acute chest wall abnormality. The visualized upper abdomen is unremarkable. IMPRESSION: Previous left lower lobectomy, chronic biapical fibrosis, pleural parenchymal scarring, cyst formation, and regional bronchiectasis. An acute infiltrate superimposed is not identified. There is no PE. The aorta is nonacute. Dictated by: Dictated on workstation # [id number]
== END ==
LOC: RAD 07:45
PROVIDERS: ATTEND Nurse Practitioner Family
DX: J44.9 Chronic obstructive pulmonary disease, unspecified (principal); J18.9 Pneumonia, unspecified organism; R91.8 Other nonspecific abnormal finding of lung field; F17.211 Nicotine dependence, cigarettes, in remission; Z90.2 Acquired absence of lung [part of]; Z87.09 Personal history of other diseases of the respiratory system
CPT/HCPCS: 36415; 71260; 82565; 84520

== ENCOUNTER 2020-10-10 19:34 | Observation (INO) | payer MEDICARE, OTHER ==
[~2020-10-10] VITALS: Ht 157.5 cm; Wt 45.4 kg
[~2020-10-10 19:34] MED LIST changes: -HOLD METFORMIN - RECEIVED CONTRAST 20 ML VIAL IV SCH; -IOHEXOL 350 MG/ML 100 ML (OMNIPAQUE 350) VIAL IV ONE; -MONT10TA26; +MONT10TA32; -NS 100 ML (IVPB) BAG IV ONE
[2020-10-10 20:09] LABS: BASOPHILS # (AUTO) 0.1 10^3/uL (0.0-0.1); BASOPHILS % (AUTO) 1 % (0-10); EOSINOPHILS # (AUTO) 0.2 10^3/uL (0.0-0.3); EOSINOPHILS % (AUTO) 3 % (0-10); HEMATOCRIT 43 % (35-52); HEMOGLOBIN 13.8 g/dL (11.5-16.0); LYMPHOCYTES # (AUTO) 1.5 10^3/uL (1.0-4.0); LYMPHOCYTES % (AUTO) 22 % (12-44); MEAN CORPUSCULAR HEMOGLOBIN 32 pg (25-34); MEAN CORPUSCULAR HGB CONC 32 g/dL (32-36); MEAN CORPUSCULAR VOLUME 100 fL (80-99); MEAN PLATELET VOLUME 9.6 fL (9.0-12.2); MONOCYTES # (AUTO) 0.6 10^3/uL (0.0-1.0); MONOCYTES % (AUTO) 9 % (0-12); NEUTROPHILS # (AUTO) 4.4 10^3/uL (1.8-7.8); NEUTROPHILS % (AUTO) 65 % (42-75); PLATELET COUNT 286 10^3/uL (130-400); WHITE BLOOD COUNT 6.8 10^3/uL (4.3-11.0)
[2020-10-10 20:36] LABS: ALANINE AMINOTRANSFERASE 21 U/L (0-55); ALBUMIN 4.3 GM/DL (3.2-4.5); ALKALINE PHOSPHATASE 77 U/L (40-136); BILIRUBIN,TOTAL 0.3 MG/DL (0.1-1.0); BUN/CREATININE RATIO 11; CALCIUM 9.5 MG/DL (8.5-10.1); CARBON DIOXIDE 26 MMOL/L (21-32); CHLORIDE 97 MMOL/L (98-107); CREATININE SERUM 0.66 MG/DL (0.60-1.30); GFR ESTIMATED > 60; GLUCOSE 95 MG/DL (70-105); MAGNESIUM 1.9 MG/DL (1.6-2.4); POTASSIUM 3.9 MMOL/L (3.6-5.0); SODIUM 135 MMOL/L (135-145); TOTAL PROTEIN 7.6 GM/DL (6.4-8.2)
[2020-10-10 20:37] LABS: INR 0.9 (0.8-1.4); PROTHROMBIN TIME PATIENT 12.9 SEC (12.2-14.7)
--- NOTE | 2020-10-10 20:50 | Diagnostic Imaging Report ---
INDICATION: Chest pain COMPARISON: 06/21/2019 FINDINGS: Single view of the chest demonstrates parenchymal changes in the upper lung zones and hilum. This is stable compared to prior exam. Questionable trace effusion is seen in the left base. The right lung base is clear. The heart remains enlarged. There is no pneumothorax. Osseous structures stable. IMPRESSION: Questionable new effusion in the left lung base. Follow-up recommended. Dictated by: Dictated on workstation # [id number]
[2020-10-10] MEDS ORDERED: KETOROLAC 30 MG/ML VIAL IVP ONE (21:30)
[2020-10-10] MEDS ORDERED: cefTRIAXone FOR IV USE 1,000 MG in WATER (STERILE) FOR INJECTION 10 ML IV ONE (21:30)
[2020-10-10] MEDS ORDERED: meTOprolol 5 MG/5 ML (LOPRESSOR) VIAL IV ONE (21:45)
--- NOTE | 2020-10-10 21:51 | ED Cardiac General ---
History of Present Illness General Chief Complaint: Cardiac/General Problems Stated Complaint: AFIB X 3 HRS Nursing Triage Note: ASSISTED PT VIA ED W/C TO ROOM #1 WITH C/O PALPITATIONS. PT REPORTS FOR THE PAST MONTH, SHE HAS BEEN EXPERIENCING INTERMITTENT SESNATIONS OF PALPITATIONS WITH RECENT EPISODE BEGINNING WITHIN THE LAST 3 HOURS. PT STATES, "IT FEELS LIKE MY HEART SKIPS AND FLUTTERS." REPORTS INCREASE IN SYMPTOMS UPON EXERTION. DENIES CHEST PAIN OR DISCOMFORT. A&OX4. Source: patient, old records Exam Limitations: no limitations History of Present Illness Date Seen by Provider: Oct 10, 2020 Time Seen by Provider: 19:46 Initial Comments This 75-year-old woman presents to the emergency room with complaints of persistent palpitations and "fluttering" of her heart. She denies history of atrial fibrillation. She has been worked up for palpitations in the remote past. She was trialed on medications which she states she did not tolerate well. Over the past few days her palpitations have been intolerable. She has trouble settling down to sleep because of the palpitations. They do eventually improved with rest. They are definitely worse with activity. She denies any chest pain. She does occasionally get lightheaded and short of breath with her palpitations. On the monitor she is showing bigeminy and trigeminy. She has COPD which requires chronic oxygen supplementation. She reports noting some mild tachycardia with her palpitations. Allergies and Home Medications Allergies Coded Allergies: No Known Drug Allergies (Verified , 04/05/15) Home Medications Albuterol Sulfate 18 Gm Hfa.aer.ad, 18 GM IH DAILY, (Reported) Aspirin 325 Mg Tab, 325 MG PO HS, (Reported) Cyanocobalamin 1,000 Mcg/Ml Vial, 1,000 MG IM MONTHLY PRN for WEAKNESS, (Reported) Levofloxacin 500 Mg Tablet, 500 MG PO DAILY Prescribed by: SAUNDRA CARTER on 07/08/162107 Prednisone 20 Mg Tab, 60 MG PO UD 3 tab po daily x7d, then 2 tabs po daily x7d, then 1 tab daily x7d Prescribed by: SAUNDRA CARTER on 07/08/162102 [Breo] , 1 PUFF INH DAILY PRN for SHORTNESS OF BREATH, (Reported) Patient Home Medication List Home Medication List Reviewed: Yes Review of Systems Review of Systems Constitutional: no symptoms reported EENTM: No Symptoms Reported Respiratory: See HPI Cardiovascular: See HPI Gastrointestinal: No Symptoms Reported Genitourinary: No Symptoms Reported Musculoskeletal: no symptoms reported Skin: no symptoms reported Psychiatric/Neurological: No Symptoms Reported Endocrine: No Symptoms Reported Hematologic/Lymphatic: No Symptoms Reported Past Ccpodsq-Qnnwgt-Yejkik Hx Past Med/Social Hx: Reviewed Nursing Past Med/Soc Hx Patient Social History Alcohol Use: Rarely Uses Number of Drinks Today: 0 Alcohol Beverage of Choice: Wine Smoking Status: Former Smoker Type Used: Cigarettes Former Smoker, Quit: Dec 06, 2013 Recent Infectious Disease Expo: No Recent Hopitalizations: Yes (KU FOR COLLAPSED LUNG) Immunizations Up To Date Tetanus Booster (TDap): Unknown Date of Pneumonia Vaccine: Nov 03, 2014 Date of Influenza Vaccine: May 18, 2016 Past Medical History Surgeries: Yes (chemical pleurodesis, pulmonary decortication) Lobectomy Respiratory: Yes (COPD, PNEUMOTHORAX) COPD, Emphysema Cardiac: No Neurological: No Reproductive Disorders: No Sexually Transmitted Disease: No HIV/AIDS: No Genitourinary: No Gastrointestinal: No Musculoskeletal: No Endocrine: No Hearing Impairment: Denies Cancer: No Psychosocial: No Integumentary: No Blood Disorders: No Adverse Reaction/Blood Tranf: No Family Medical History Reviewed Nursing Family Hx Cardiovascular disease 19 MOTHER G8 SISTER Completed stroke 19 MOTHER Parkinson's disease 19 FATHER No Pertinent Family Hx Physical Exam Vital Signs Vital Signs - First Documented Capillary Refill : Less Than 3 Seconds Height, Weight, BMI Height: 5'2.00" Weight: 100lbs. 3.0oz. 45.424984nx; 18.00 BMI Method:Stated General Appearance: No Apparent Distress, WD/WN, Thin HEENT: PERRL/EOMI, Normal ENT Inspection Neck: Normal Inspection; No JVD Respiratory: Lungs Clear, Normal Breath Sounds, No Accessory Muscle Use Cardiovascular: No Edema, No Murmur, Irregularly Irregular Gastrointestinal: Normal Bowel Sounds, Non Tender, Soft Extremity: Normal Inspection, No Pedal Edema Neurologic/Psychiatric: Alert, Oriented x3, No Motor/Sensory Deficits, 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 Skin: Normal Color, Warm/Dry Procedures/Interventions Date of ETT Placement: Dec 01, 2018 Time of ETT Placement: 0712 Progress/Results/Core Measures Results/Orders Lab Results Laboratory Tests Test 10/10/20 20:00 Range/Units White Blood Count 6.8 4.3-11.0 10^3/uL Red Blood Count 4.31 3.80-5.11 10^6/uL Hemoglobin 13.8 11.5-16.0 g/dL Hematocrit 43 35-52 % Mean Corpuscular Volume 100 H 80-99 fL Mean Corpuscular Hemoglobin 32 25-34 pg Mean Corpuscular Hemoglobin Concent 32 32-36 g/dL Red Cell Distribution Width 12.4 10.0-14.5 % Platelet Count 286 130-400 10^3/uL Mean Platelet Volume 9.6 9.0-12.2 fL Immature Granulocyte % (Auto) 0 % Neutrophils (%) (Auto) 65 42-75 % Lymphocytes (%) (Auto) 22 12-44 % Monocytes (%) (Auto) 9 0-12 % Eosinophils (%) (Auto) 3 0-10 % Basophils (%) (Auto) 1 0-10 % Neutrophils # (Auto) 4.4 1.8-7.8 10^3/uL Lymphocytes # (Auto) 1.5 1.0-4.0 10^3/uL Monocytes # (Auto) 0.6 0.0-1.0 10^3/uL Eosinophils # (Auto) 0.2 0.0-0.3 10^3/uL Basophils # (Auto) 0.1 0.0-0.1 10^3/uL Immature Granulocyte # (Auto) 0.0 0.0-0.1 10^3/uL Prothrombin Time 12.9 12.2-14.7 SEC INR Comment 0.9 0.8-1.4 Activated Partial Thromboplast Time 30 24-35 SEC Sodium Level 135 135-145 MMOL/L Potassium Level 3.9 3.6-5.0 MMOL/L Chloride Level 97 L 98-107 MMOL/L Carbon Dioxide Level 26 21-32 MMOL/L Anion Gap 12 5-14 MMOL/L Blood Urea Nitrogen 7 7-18 MG/DL Creatinine 0.66 0.60-1.30 MG/DL Estimat Glomerular Filtration Rate > 60 BUN/Creatinine Ratio 11 Glucose Level 95 70-105 MG/DL Calcium Level 9.5 8.5-10.1 MG/DL Corrected Calcium 9.3 8.5-10.1 MG/DL Magnesium Level 1.9 1.6-2.4 MG/DL Total Bilirubin 0.3 0.1-1.0 MG/DL Aspartate Amino Transf (AST/SGOT) 27 5-34 U/L Alanine Aminotransferase (ALT/SGPT) 21 0-55 U/L Alkaline Phosphatase 77 40-136 U/L Myoglobin 32.3 10.0-92.0 NG/ML Troponin I < 0.028 <0.028 NG/ML Total Protein 7.6 6.4-8.2 GM/DL Albumin 4.3 3.2-4.5 GM/DL TSH [place] Testing 3.06 0.35-4.94 UIU/ML My Orders Orders - TIGRE HIRSCH MD Cbc With Automated Diff (10/10/20 19:43) Magnesium (10/10/20 19:43) Chest 1 View, Ap/Pa Only (10/10/20 19:43) Ekg Tracing (10/10/20 19:43) Comprehensive Metabolic Panel (10/10/20 19:43) Myoglobin Serum (10/10/20 19:43) Protime With Inr (10/10/20 19:43) Partial Thromboplastin Time (10/10/20 19:43) O2 (10/10/20 19:43) Monitor-Rhythm Ecg Trace Only (10/10/20 19:43) Lipid Panel (10/11/20 06:00) Ed Iv/Invasive Line Start (10/10/20 19:43) Troponin I (10/10/20 19:43) Ekg Tracing (10/10/20 20:16) Thyroid ([place]) Tablet (Thyroid ([place] (10/11/20 06:30) Thyroid Analyzer (10/10/20 20:59) Metoprolol Tartrate Injection (Lopressor (10/10/20 21:45) Medications Given in ED Current Medications Medications Dose Ordered Sig/Mark Route Start Time Stop Time Status Last Admin Dose Admin Metoprolol Tartrate 5 mg ONCE ONCE IV 10/10/20 21:45 10/10/20 21:46 DC 10/10/20 21:47 5 MG Vital Signs/I&O 10/10/20 10/10/20 19:39 19:39 Temp 36.6 Pulse 85 Resp 20 B/P (MAP) 162/82 (108) Pulse Ox 100 100 O2 Delivery Nasal Cannula Nasal Cannula O2 Flow Rate 3.00 3.00 Blood Pressure Mean: 108 Progress Progress Note : Progress Note Patient had fairly persistent bigeminy and trigeminy initially. This seemed to improve with rest. Case was discussed with Dr. Savage who recommended giving a dose of Lopressor IV. If tolerated well, she may then start on metoprolol tartrate. Lopressor was given. Patient was allowed to walk around a bit. She seemed to tolerate it well and there continues to be decreased PVCs. Metoprolol tartrate 25 mg orally was given. EKG #1: EKG Time: 19:46 Rate: 85 Rhythm: Normal Sinus Comment Sinus rhythm with no ST elevation or depression. 1 PVC noted. No significant axis deviation or abnormal intervals. EKG #2: EKG Time: 20:00 Rate: 69 Comment Mixture of bigeminy and trigeminy with no ST elevation or depression. No additional axis deviation or abnormal intervals. Diagnostic Imaging Diagonstic Imaging: Xray Plain Films/CT/US/NM/MRI: chest Comments NAME: RICK BOOKER MED REC#: [id number] PT STATUS: REG ER : 1945 PHYSICIAN: TIGRE HIRSCH MD ADMIT DATE: 10/10/20/ER Signed Date of Exam:10/10/20 CHEST 1 VIEW, AP/PA ONLY INDICATION: Chest pain COMPARISON: 06/21/2019 FINDINGS: Single view of the chest demonstrates parenchymal changes in the upper lung zones and hilum. This is stable compared to prior exam. Questionable trace effusion is seen in the left base. The right lung base is clear. The heart remains enlarged. There is no pneumothorax. Osseous structures stable. IMPRESSION: Questionable new effusion in the left lung base. Follow-up recommended. Dictated by: Dictated on workstation # [id number] Dict: 10/10/202046 Trans: 10/10/202113 [facility] [id number] Interpreted by: OLU ALEXANDER Electronically signed by: OLU ALEXANDER 10/10/202113 Departure Communication (Admissions) Time/Spoke to Admitting Phy: 21:40 Dr. Obed De Santiago Time/Spoke to Consulting Phy: 21:35 Dr. Savage Impression Primary Impression: Bigeminy Additional Impressions: Trigeminy Lightheadedness Disposition: ADMITTED INPATIENT Condition: Improved Admissions Decision to Admit Reason: Admit from ER (General) Decision to Admit/Date: Oct 10, 2020 Time/Decision to Admit Time: 21:35 Departure-Patient Inst. Referrals: OBED DE SANTIAGO MD (PCP/Family) Primary Care Physician TIGRE HIRSCH MD Oct 10, 2020 21:51
[2020-10-10] MEDS ORDERED: meTOprolol TARTRATE 25 MG (LOPRESSOR) TABLET PO ONE (22:30)
[2020-10-10 22:41] VITALS: BP 127/86
[2020-10-10] MEDS ORDERED: CATHETER FLUSH 10 ML SYR IV PRN (23:00)
[2020-10-11] VITALS: BP 120/71
[2020-10-11 00:23] VITALS: BP 162/82
[2020-10-11] MEDS ORDERED: RT-ALBUTEROL SULF 2.5 MG/3 ML PRE-MIX VIAL INH PRN (00:45)
[2020-10-11 03:50] LABS: BASOPHILS # (AUTO) 0.1 10^3/uL (0.0-0.1); BASOPHILS % (AUTO) 1 % (0-10); EOSINOPHILS # (AUTO) 0.2 10^3/uL (0.0-0.3); EOSINOPHILS % (AUTO) 4 % (0-10); HEMATOCRIT 40 % (35-52); HEMOGLOBIN 13.1 g/dL (11.5-16.0); LYMPHOCYTES # (AUTO) 1.1 10^3/uL (1.0-4.0); LYMPHOCYTES % (AUTO) 20 % (12-44); MEAN CORPUSCULAR HEMOGLOBIN 32 pg (25-34); MEAN CORPUSCULAR HGB CONC 33 g/dL (32-36); MEAN CORPUSCULAR VOLUME 100 fL (80-99); MEAN PLATELET VOLUME 9.9 fL (9.0-12.2); MONOCYTES # (AUTO) 0.5 10^3/uL (0.0-1.0); MONOCYTES % (AUTO) 10 % (0-12); NEUTROPHILS # (AUTO) 3.5 10^3/uL (1.8-7.8); NEUTROPHILS % (AUTO) 65 % (42-75); PLATELET COUNT 243 10^3/uL (130-400); WHITE BLOOD COUNT 5.3 10^3/uL (4.3-11.0)
[2020-10-11 04:00] VITALS: BP 117/70
[2020-10-11 04:07] LABS: CHLORIDE 101 MMOL/L (98-107); POTASSIUM 4.2 MMOL/L (3.6-5.0); SODIUM 136 MMOL/L (135-145)
[2020-10-11 04:09] LABS: CALCIUM 8.8 MG/DL (8.5-10.1); GLUCOSE 88 MG/DL (70-105); TRIGLYCERIDES 61 MG/DL (<150); VLDL CHOLESTEROL 12 MG/DL (5-40)
[2020-10-11 04:11] LABS: CARBON DIOXIDE 26 MMOL/L (21-32)
[2020-10-11 04:13] LABS: CREATININE SERUM 0.57 MG/DL (0.60-1.30); GFR ESTIMATED > 60
[2020-10-11 04:14] LABS: BUN/CREATININE RATIO 11; CHOLESTEROL 190 MG/DL (< 200)
[2020-10-11 04:15] LABS: HDL CHOLESTEROL 84 MG/DL (40-60)
[2020-10-11] MEDS ORDERED: CATHETER FLUSH 10 ML SYR IV SCH (06:00)
[2020-10-11] MEDS ORDERED: THYROID (ARMOUR) 60 MG TABLET PO SCH (06:30)
[2020-10-11 08:00] VITALS: BP 102/64
--- NOTE | 2020-10-11 08:08 | History & Physical ---
History of Present Illness History of Present Illness Reason for visit/HPI 75 yo F admitted for palpitations. She reports they have been going on for about 2-3 months on and off. She came to the ER last evening because the palpations had been going on for all day and really bothersome the last 2-3 hours. It affects her sleep and breathing. She has history of pneumothorax due to bullous emphysema. She is on supplemental oxygen due to chronic hypoxic r espiratory failure. Last admission was in 2019 for pneumothorax which she was transferred to [place]. Of note her labs- HDL 84 and MCV 100 which indicates she likely drinks etoh on a regular basis. 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 She drinks 1/5 of wine from 11am to 8pm (1/5 of wine I learned is a 750ml bottle). Date of Admission Oct 10, 2020 at 22:01 Date Seen by a Provider: Oct 11, 2020 Time Seen by a Provider: 08:08 I consulted on this patient on 10/11/20 08:02 Attending Physician Obed Zelaya MD Admitting Physician Obed Zelaya MD Consult Allergies and Home Medications Allergies Coded Allergies: No Known Drug Allergies (Verified , 04/05/15) Home Medications Albuterol Sulfate 18 Gm Hfa.aer.ad, 18 GM IH DAILY, (Reported) Aspirin 81 Mg Tablet.dr, 81 MG PO DAILY Prescribed by: DAVIAN ADAMS on 10/11/20 1151 Cyanocobalamin 1,000 Mcg/Ml Vial, 1,000 MG IM MONTHLY PRN for WEAKNESS, (Reported) Metoprolol Tartrate 25 Mg Tablet, 25 MG PO BID Prescribed by: DAVIAN ADAMS on 10/11/20 1151 [Breo] , 1 PUFF INH DAILY PRN for SHORTNESS OF BREATH, (Reported) Patient Home Medication List Home Medication List Reviewed: Yes Past Lilksvz-Rwgkpi-Lmtlki Hx Patient Social History Alcohol Beverage of Choice: Wine Smoking Status: Former Smoker Former Smoker, Quit: Dec 06, 2013 Recent Hopitalizations: Yes (KU FOR COLLAPSED LUNG) Have you traveled recently?: No Alcohol Use?: Yes Pt feels they are or have been: No Immunizations Up To Date Tetanus Booster (TDap): Unknown Date of Pneumonia Vaccine: Nov 03, 2014 Date of Influenza Vaccine: May 18, 2020 Surgeries Yes (chemical pleurodesis, pulmonary decortication) Lobectomy Respiratory Yes (COPD, PNEUMOTHORAX) Cardiovascular No Neurological No Reproductive System Hx Reproductive Disorders: No Sexually Transmitted Disease: No HIV/AIDS: No Genitourinary No Gastrointestinal No Musculoskeletal No Endocrine History of Endocrine Disorders: No HEENT Hearing Impairment: Denies Cancer No Psychosocial History of Psychiatric Problem: No Integumentary History of Skin or Integumenta: No Blood Transfusions History of Blood Disorders: No Adverse Reaction to a Blood Tr: No Family Medical History Significant Family History: No Pertinent Family Hx Family Hx: Cardiovascular disease 19 MOTHER G8 SISTER Completed stroke 19 MOTHER Parkinson's disease 19 FATHER Review of Systems Review of Systems General: No Chills, No Night Sweats HEENT: No Head Aches Pulmonary: No Dyspnea, No Cough Cardiovascular: No: Chest Pain, Palpitations Gastrointestinal: No: Nausea, Vomiting Genitourinary: No Dysuria Neurological: No: Weakness Physical Exam Vital Signs Vital Signs - First Documented 10/11/20 00:23 FiO2 32 Capillary Refill : Less Than 3 Seconds 36.5C 64 beats per minute RR 16 BP 102/64 99% on 3L oxygen Height, Weight, BMI Height: 5'2.00" Weight: 100lbs. 3.0oz. 45.923765jg; 18.30 BMI Method:Stated General Appearance: No Apparent Distress HEENT: PERRL/EOMI Neck: Non Tender, Supple Respiratory: Chest Non Tender, Lungs Clear Cardiovascular: Regular Rate, Rhythm (quiet s1), No Edema Gastrointestinal: Non Tender, Soft Rectal: Deferred Back: No CVA Tenderness Extremity: Non Tender, No Calf Tenderness Neurologic/Psychiatric: Alert, Oriented x3, No Motor/Sensory Deficits Skin: Warm/Dry Assessment/Plan Assessment/Plan Admission Dx cardiac arrythmia Admission Status: Observation Assessment and Plan monitor respiratory status as she is high risk to decompensate- along with her history of pneumothorax due to bullous emphysema, small frame. -Dr. Savage is consulted for cardiology. -continue on metoprolol. -concern that her 750ml of wine daily may be contributing to her cardiac arrythmia. Recommend she cut back. Dispo: monitoring cardiac and respiratory status. -Pt did well overnight. -May d/c to home today after echo and cardiology signs off. Problems: (1) End stage COPD (2) Lightheadedness (3) Bigeminy (4) Trigeminy (5) Alcohol use (6) Palpitations OBED ZELAYA MD Oct 11, 2020 08:08
[2020-10-11] MEDS ORDERED: meTOprolol TARTRATE 25 MG (LOPRESSOR) TABLET PO SCH (09:00)
[2020-10-11] MEDS ORDERED: ASPI-1238 PO (10:33)
[2020-10-11] MEDS ORDERED: METO-333 PO (10:33)
--- NOTE | 2020-10-11 11:04 | Consultation-Cardiology ---
HPI-Cardiology Cardiology Consultation Date of Consultation 10/11/20 Date of Admission Time Seen by Provider: 08:08 Indication: Palpitations HPI Patient is a 75 y/o female with history of PVC's, palpitations, ETOH use. Presented to the ER with complaints of increased palpitations over the past month. Denies any chest pain, dizziness or lightheadedness. Home Medications & Allergies Allergies: Coded Allergies: No Known Drug Allergies (Verified , 04/05/15) Home Medication List Reviewed: Yes WTQ-Gumzep-Cikedg Hx Patient Social History Recreational Drug Use: No Smoking Status: Former Smoker Former smoker/When Quit: Apr 05, 2014 Type Used: Cigarettes Recent Hopitalizations: Yes (KU FOR COLLAPSED LUNG) Have you traveled recently?: No Alcohol Use?: Yes Immunizations Up To Date Tetanus Booster (TDap): Unknown Date of Pneumonia Vaccine: Nov 03, 2014 Date of Influenza Vaccine: May 18, 2020 Past Medical History PVCs ETOH use Tobaccoism Family Medical History Significant Family History: No Pertinent Family Hx Family History: Cardiovascular disease 19 MOTHER G8 SISTER Completed stroke 19 MOTHER Parkinson's disease 19 FATHER Review of Systems-General Review of Systems Constitutional: no symptoms reported, see HPI EENTM: see HPI, no symptoms reported Respiratory: see HPI; No cough, No dyspnea on exertion, No orthopnea; short of breath Cardiovascular: see HPI; No chest pain, No edema, No Hx of Intervention; palpitations; No syncope, No vascular heart diseas Musculoskeletal: no symptoms reported Skin: no symptoms reported Psychiatric/Neurological: No Symptoms Reported Reviewed Test Results Reviewed Test Results Lab Laboratory Tests 10/10/20 20:00: White Blood Count 6.8, Red Blood Count 4.31, Hemoglobin 13.8, Hematocrit 43, Mean Corpuscular Volume 100H, Mean Corpuscular Hemoglobin 32, Mean Corpuscular Hemoglobin Concent 32, Red Cell Distribution Width 12.4, Platelet Count 286, Mean Platelet Volume 9.6, Immature Granulocyte % (Auto) 0, Neutrophils (%) (Auto) 65, Lymphocytes (%) (Auto) 22, Monocytes (%) (Auto) 9, Eosinophils (%) (Auto) 3, Basophils (%) (Auto) 1, Neutrophils # (Auto) 4.4, Lymphocytes # (Auto) 1.5, Monocytes # (Auto) 0.6, Eosinophils # (Auto) 0.2, Basophils # (Auto) 0.1, Immature Granulocyte # (Auto) 0.0, Prothrombin Time 12.9, INR Comment 0.9, Activated Partial Thromboplast Time 30, Sodium Level 135, Potassium Level 3.9, Chloride Level 97L, Carbon Dioxide Level 26, Anion Gap 12, Blood Urea Nitrogen 7, Creatinine 0.66, Estimat Glomerular Filtration Rate > 60, BUN/Creatinine Ratio 11, Glucose Level 95, Calcium Level 9.5, Corrected Calcium 9.3, Magnesium Level 1.9, Total Bilirubin 0.3, Aspartate Amino Transf (AST/SGOT) 27, Alanine Aminotransferase (ALT/SGPT) 21, Alkaline Phosphatase 77, Myoglobin 32.3, Troponin I < 0.028, Total Protein 7.6, Albumin 4.3, TSH [place] Testing 3.06 10/11/20 03:05: White Blood Count 5.3, Red Blood Count 4.04, Hemoglobin 13.1, Hematocrit 40, Mean Corpuscular Volume 100H, Mean Corpuscular Hemoglobin 32, Mean Corpuscular Hemoglobin Concent 33, Red Cell Distribution Width 12.5, Platelet Count 243, Mean Platelet Volume 9.9, Immature Granulocyte % (Auto) 0, Neutrophils (%) (Auto) 65, Lymphocytes (%) (Auto) 20, Monocytes (%) (Auto) 10, Eosinophils (%) (Auto) 4, Basophils (%) (Auto) 1, Neutrophils # (Auto) 3.5, Lymphocytes # (Auto) 1.1, Monocytes # (Auto) 0.5, Eosinophils # (Auto) 0.2, Basophils # (Auto) 0.1, Immature Granulocyte # (Auto) 0.0, Sodium Level 136, Potassium Level 4.2, Chloride Level 101, Carbon Dioxide Level 26, Anion Gap 9, Blood Urea Nitrogen 6L , Creatinine 0.57L, Estimat Glomerular Filtration Rate > 60, BUN/Creatinine Ratio 11, Glucose Level 88, Calcium Level 8.8, Triglycerides Level 61, Cholesterol Level 190, LDL Cholesterol Direct 96, VLDL Cholesterol 12, HDL Cholesterol 84H ECG Impression ECG Comment Bigeminy Physical Exam Physical Exam Vital Signs Vital Signs - First Documented 10/11/20 00:23 FiO2 32 Capillary Refill : Less Than 3 Seconds Height, Weight, BMI Height: 5'2.00" Weight: 100lbs. 3.0oz. 45.871970oj; 18.30 BMI Method:Stated General Appearance: No Apparent Distress HEENT: PERRL/EOMI Neck: Non Tender, Supple Respiratory: Chest Non Tender, Lungs Clear Cardiovascular: Regular Rate, Rhythm, No Edema Gastrointestinal: Non Tender, Soft Rectal: Deferred Back: No CVA Tenderness Extremity: Non Tender, No Calf Tenderness Neurologic/Psychiatric: Alert, Oriented x3, No Motor/Sensory Deficits Skin: Warm/Dry A/P-Cardiology Admission Diagnosis Palpitations PVC's ETOH use COPD Assessment/Plan Palpitations/PVC's, was having episodes or bigeminy and trigeminy. Improved after starting Lopressor, continue on current medications. 2D Echo done 10.11.20 showing normal LV, PA 35-40mmHg. ETOH use, intructed to cut back alcohol intake COPD Tobaccoism, stopped smoking 6 years ago. Encouraged to continue with smoking cessation OK for discharge from cardiology standpoint, continue on Lopressor. F/u in 2-4 weeks in our office. Thank you for allowing us to participate in the management of Ms. Guevara. This is Christine Sarkar PA-C, as a scribe for Dr. Savage Patient was seen and evaluated with Christine, interviewed the patient perform physical examination Patient was admitted for palpitation, reported to have frequent PVCs. Previously she was intolerant to beta blockers. We restarted beta blockers and she tolerated it well but was borderline hypotensive. I discussed with the patient management per recommended trying metoprolol 25 mg twice a day and if she continued to be hypotensive to The Dose to 12.5 Mg Twice a Day. If She Continued to Be Hypotensive and Dizzy and Tired She Can Try Metoprolol 12.5 Mg Once a Day in the Evening We Discussed in Length about Limiting Alcohol Intake Patient Has Stopped Smoking 6 Years Ago. We'll arrange for follow-up in 2 weeks in my office. CHRISTINE CARDONA Oct 11, 2020 11:04 STELLA SAVAGE MD Oct 11, 2020 12:32
[2020-10-12] MEDS ORDERED: THYROID (ARMOUR) 60 MG TABLET PO SCH (06:30)
== END 2020-10-11 12:04 | disposition home or self-care (01) ==
LOC: EDUNIT# 19:34 → ER 19:36 → CSD 22:01 → UNDOADMOB 22:01 → CSD 22:41 → UNDODISOB 10-11 12:12
PROVIDERS: ADMIT Family Medicine; ATTEND Family Medicine
DX: J43.9 Emphysema, unspecified (principal); J96.11 Chronic respiratory failure with hypoxia; R42 Dizziness and giddiness; R00.2 Palpitations; F10.99 Alcohol use, unspecified with unspecified alcohol-induced disorder; Z79.82 Long term (current) use of aspirin; Z79.51 Long term (current) use of inhaled steroids; Z87.891 Personal history of nicotine dependence
CPT/HCPCS: 71045; 80048; 80053; 80061; 83735; 83874; 84443; 84484; 85025 ×2; 85610; 85730; 93005; 93041; 93306; 96374; 99284; G0378; 36415

== ENCOUNTER 2020-12-26 11:32 | Emergency (ER) | payer MEDICARE, OTHER ==
[~2020-12-26] VITALS: Ht 157 cm; Wt 42.0 kg
[~2020-12-26 11:32] MED LIST changes: +ASPI-1238 PO; +METO-333 PO
--- NOTE | 2020-12-26 12:38 | ED Respiratory ---
General Chief Complaint: Respiratory Problems Stated Complaint: LUNG INFECTION Nursing Triage Note: ARRIVED VIA AMB TO ROOM 10 WEARING OWN OXYGEN. STATES THIS WEEK SHE HAS HAD TO INCREASE HER OXYGEN FROM 3 TO [address] NC[address] ROCA YESTERDAY. STATES SHE GETS THIS WAY OCCASIONALY AND WOULD LIKE STEROIDS THRU HER IV. History of Present Illness Date Seen by Provider: December 26, 2020 Time Seen by Provider: 12:20 Initial Comments Patient is a 75-year-old female who presents to the emergency department today with a chief complaint of shortness of breath with exertion. Patient tells me that she has a history of COPD, she is chronically on 3 L of oxygen per nasal cannula. Over the course of the last 2 weeks she has started having worsening exertional dyspnea and her oxygen saturations drop when she is on her oxygen. The patient states that she bumped it up to 4 L of oxygen at home recently. She saw Dr. 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 Patient states when she woke up this morning she did not feel any better after taking a full days worth of medications. Patient does have albuterol for nebulization at home but does not use it. She denies any chronic cough. She has not had any fever although she states subjectively she felt like she had one yesterday. No increased congestion, no chest pain no nausea, vomiting or other GI or symptoms. Patient states the symptoms remind her of an episode 3 or 4 years ago when she had what sounds like a pneumothorax due to a bleb rupture in her lung. All other review of systems reviewed and negative except as stated above. Timing/Duration: week, getting worse Severity: moderate Prior Episodes/Possible Cause: occasional episodes Modifying Factors: Improves With Oxygen, Improves With Rest Associated Symptoms: denies symptoms Allergies and Home Medications Allergies Coded Allergies: No Known Drug Allergies (Verified , 04/05/15) Home Medications Albuterol Sulfate 18 Gm Hfa.aer.ad, 18 GM IH DAILY, (Reported) Albuterol Sulfate 2.5 Mg/3 Ml Vial.neb, 2.5 MG INH Q6H PRN for WHEEZING Prescribed by: SYD LISA on 12/26/20 1338 Aspirin 81 Mg Tablet., 81 MG PO DAILY Prescribed by: DAVIAN ADAMS on 10/11/20 1151 Cyanocobalamin 1,000 Mcg/Ml Vial, 1,000 MG IM MONTHLY PRN for WEAKNESS, (Reported) Metoprolol Tartrate 25 Mg Tablet, 25 MG PO BID Prescribed by: DAVIAN ADAMS on 10/11/20 1151 [Breo] , 1 PUFF INH DAILY PRN for SHORTNESS OF BREATH, (Reported) Patient Home Medication List Home Medication List Reviewed: Yes Review of Systems Review of Systems Constitutional: see HPI EENTM: no symptoms reported Respiratory: short of breath Cardiovascular: no symptoms reported Gastrointestinal: no symptoms reported Genitourinary: no symptoms reported Musculoskeletal: no symptoms reported Skin: no symptoms reported All Other Systems Reviewed Negative Unless Noted: Yes Past Vhjoabm-Bfdmjq-Pifjqb Hx Patient Social History Alcohol Use: Occasionally Uses Number of Drinks Today: Alcohol Beverage of Choice: Wine Type Used: Cigarettes Former Smoker, Quit: Dec 06, 2013 Recent Infectious Disease Expo: No Recent Hopitalizations: Yes ([facility] FOR COLLAPSED LUNG) Immunizations Up To Date Tetanus Booster (TDap): Unknown Date of Pneumonia Vaccine: Nov 03, 2014 Date of Influenza Vaccine: May 18, 2020 Past Medical History Surgeries: Yes (chemical pleurodesis, pulmonary decortication) Lobectomy Respiratory: Yes (COPD, PNEUMOTHORAX) COPD, Emphysema Cardiac: No Neurological: No Reproductive Disorders: No Sexually Transmitted Disease: No HIV/AIDS: No Genitourinary: No Gastrointestinal: No Musculoskeletal: No Endocrine: No Hearing Impairment: Denies Cancer: No Psychosocial: No Integumentary: No Blood Disorders: No Adverse Reaction/Blood Tranf: No Family Medical History Cardiovascular disease 19 MOTHER G8 SISTER Completed stroke 19 MOTHER Parkinson's disease 19 FATHER No Pertinent Family Hx Physical Exam Vital Signs - First Documented 12/26/20 11:40 Temp 35.3 Pulse 109 Resp 16 B/P (MAP) 164/89 (114) Pulse Ox 97 O2 Delivery Nasal Cannula O2 Flow Rate 4.00 Capillary Refill : Less Than 3 Seconds Height: 5'2.00" Weight: 100lbs. 3.0oz. [id number]; 17.00 BMI Method:Stated General Appearance: WD/WN, no apparent distress Eyes: Bilateral Eye Normal Inspection, Bilateral Eye PERRL, Bilateral Eye EOMI Neck: normal inspection Respiratory: lungs clear, normal breath sounds, no respiratory distress, no accessory muscle use Cardiovascular: regular rate, rhythm, other (Distal pulses intact) Gastrointestinal: non tender, soft Extremities: non-tender, normal inspection, no pedal edema, no calf tenderness Neurologic/Psychiatric: no motor/sensory deficits, alert, normal mood/affect, oriented x 3 Skin: normal color, warm/dry Procedures/Interventions Date of ETT Placement: Dec 01, 2018 Time of ETT Placement: 07 Progress/Results/Core Measures Suspected Sepsis Recent Fever Within 48 Hours: No Infection Criteria Present: Suspected New Infection New/Unexplained Altered Menta: No Sepsis Screen: Possible Severe Sepsis Risk SIRS Temperature: Pulse: 109 Respiratory Rate: 16 Blood Pressure 164 /89 Mean: 114 Results/Orders My Orders Orders - SYD LISA MD Chest Pa/Lat (2 View) (12/26/20 12:34) Vital Signs/I&O 12/26/20 12/26/20 11:40 11:40 Temp 35.3 Pulse 109 Resp 16 B/P (MAP) 164/89 (114) Pulse Ox 97 O2 Delivery Nasal Cannula Room Air O2 Flow Rate 4.00 Capillary Refill : Less Than 3 Seconds Blood Pressure Mean: 114 Progress Note : Time: 13:38 Progress Note Patient looks well, satting 100% on her 3 L per nasal cannula oxygen. Chest x- ray shows a "suspicion for infiltrate" in the right lower lobe. Patient is in no respiratory distress. She is on cefdinir antibiotics as well as a prednisone taper per Dr. Roca. Patient will follow up with her primary care physician as well as Dr. Roca. No clinical or objective findings to warrant further evaluation here in the emergency department. I have no concern for sepsis in this well-appearing patient. Patient will be discharged home with albuterol for her nebulizer at home. She is instructed to use it 3 times a day. She verbalizes understanding. All questions are sought and answered. Patient is stable for discharge. Diagnostic Imaging Diagonstic Imaging: Xray Plain Films/CT/US/NM/MRI: chest Comments [facility], [place] NAME: RICK BOOKER MED REC#: [id number] PT STATUS: REG ER : 1945 PHYSICIAN: SYD LISA MD ADMIT DATE: 12/26/20/ER Draft Date of Exam:12/26/20 CHEST PA/LAT (2 VIEW) INDICATION: Shortness of breath. Lung infection. COMPARISON: 10/10/2020. FINDINGS: Chronic volume loss and left apical pleural-parenchymal opacity with some adjacent bronchiectasis are unchanged. Substantial but less severe scarring in the right pulmonary apex is also unchanged. The parenchymal density in the right lower lobe shows an increase from the prior exam and superimposed pneumonia upon the chronic lung disease is suspected. No effusion, pneumothorax, or failure pattern. IMPRESSION: Severe chronic left greater than right biapical pleural-parenchymal opacities are stable. Suspicion for new infiltrate in the right lower lobe owing to pneumonia. Dictated on workstation # [id number] Dict: 12/26/20 1317 Trans: 12/26/20 1322 [id number] Interpreted by: DEVENDRA TOBAR Electronically signed by: Departure Impression Primary Impression: Shortness of breath Additional Impression: Pneumonia Qualified Codes: J18.9 - Pneumonia, unspecified organism Disposition: HOME, SELF-CARE Condition: Stable Departure-Patient Inst. Decision time for Depature: 13:37 Referrals: SLICK DE SANTIAGO MD (PCP/Family) Primary Care Physician Patient Instructions: Pneumonia, Adult (DC) Add. Discharge Instructions: Continue to take your antibiotics as prescribed. Continue the prednisone taper as prescribed. Use the albuterol in your nebulizer 3 times daily over the course of the next week. Come back to the emergency room if you have any worsening shortness of breath, fevers, chills, nausea vomiting or any other emergent concerning symptoms. Scripts Albuterol Sulfate (Albuterol Sulfate) 2.5 Mg/3 Ml Vial.neb 2.5 MG INH Q6H PRN for WHEEZING, #50 EA 1 Refill Prov: SYD LISA MD 12/26/20 SYD LISA MD December 26, 2020 12:38
--- NOTE | 2020-12-26 13:22 | Diagnostic Imaging Report ---
INDICATION: Shortness of breath. Lung infection. COMPARISON: 10/10/2020. FINDINGS: Chronic volume loss and left apical pleural-parenchymal opacity with some adjacent bronchiectasis are unchanged. Substantial but less severe scarring in the right pulmonary apex is also unchanged. The parenchymal density in the right lower lobe shows an increase from the prior exam and superimposed pneumonia upon the chronic lung disease is suspected. No effusion, pneumothorax, or failure pattern. IMPRESSION: Severe chronic left greater than right biapical pleural-parenchymal opacities are stable. Suspicion for new infiltrate in the right lower lobe owing to pneumonia. Dictated by: Dictated on workstation # [id number]
[2020-12-26] MEDS ORDERED: ALBU2.5V4 INH (13:38)
[2020-12-26 13:46] VITALS: BP 131/85
== END 2020-12-26 13:46 | disposition home or self-care (01) ==
LOC: EDUNIT# 11:32 → ER 11:34
DX: R06.02 Shortness of breath (principal); J18.9 Pneumonia, unspecified organism; J44.9 Chronic obstructive pulmonary disease, unspecified; Z87.891 Personal history of nicotine dependence; Z79.82 Long term (current) use of aspirin
CPT/HCPCS: 71046

== ENCOUNTER 2021-01-07 07:13 | Emergency (ER) | payer MEDICARE, OTHER ==
[~2021-01-07] VITALS: Ht 157 cm; Wt 49.8 kg
[~2021-01-07 07:13] MED LIST changes: +ALBU2.5V4 INH; -RT-ALBUINH IH; +RT-ALBUINH INH
--- NOTE | 2021-01-07 07:48 | ED Respiratory ---
General Chief Complaint: Respiratory Problems Stated Complaint: CHILLS / SOA Source: patient Exam Limitations: no limitations History of Present Illness Date Seen by Provider: January 07, 2021 Time Seen by Provider: 07:35 Initial Comments Patient is a 75-year-old female who presents to the emergency department today with a chief complaint of feeling "like crap". Patient states her symptoms have been coming on over the course of the last 2 or 3 days. She states she woke up this morning with significant chills, shaking all over and her teeth "chattering". Patient states that she feels short of breath and like she "cannot breathe". She denies any chronic cough. She normally wears 3 L of oxygen per nasal cannula but occasionally bumps it up to 4. On presentation to the room her oxygen saturations after walking to the room were in the upper 70s. Patient has a history of chronic COPD. She recently finished cefdinir and a prednisone taper per Dr. Roca. She had findings suspicious for right lower lobe pneumonia on chest x-ray about 12 days ago. Patient is concerned that she might have a urinary tract infection, she does have some vaginal itching and is also concerned for a yeast infection secondary to being on the antibiotics. She denies any sore throat, runny nose or congestion. No abdominal pain, nausea vomiting or diarrhea. All other review of systems reviewed and negative except as stated above. Timing/Duration: yesterday Severity: moderate Modifying Factors: Improves With Albuterol Nebulizer Associated Symptoms: shortness of breath Allergies and Home Medications Allergies Coded Allergies: No Known Drug Allergies (Verified , 04/05/15) Home Medications Albuterol Sulfate 18 Gm Hfa.aer.ad, 18 GM IH DAILY, (Reported) Albuterol Sulfate 2.5 Mg/3 Ml Vial.neb, 2.5 MG INH Q6H PRN for WHEEZING Prescribed by: SYD LISA on 12/26/20 1338 Albuterol Sulfate 1 Puff Puff, 2 PUFF IH Q6H PRN for shortness of breath 1 PUFF = 90 MCG Prescribed by: SYD LISA on 01/07/21 0922 Aspirin 81 Mg Tablet.dr, 81 MG PO DAILY Prescribed by: DAVIAN ADAMS on 10/11/20 1151 Cyanocobalamin 1,000 Mcg/Ml Vial, 1,000 MG IM MONTHLY PRN for WEAKNESS, (Reported) Doxycycline Hyclate 100 Mg Tablet, 100 MG PO BID Prescribed by: SYD LISA on 01/07/21 0922 Metoprolol Tartrate 25 Mg Tablet, 25 MG PO BID Prescribed by: DAVIAN ADAMS on 10/11/20 1151 [Breo] , 1 PUFF INH DAILY PRN for SHORTNESS OF BREATH, (Reported) Patient Home Medication List Home Medication List Reviewed: Yes Review of Systems Review of Systems Constitutional: see HPI, chills EENTM: no symptoms reported Respiratory: dyspnea on exertion, short of breath Cardiovascular: no symptoms reported Gastrointestinal: No nausea, No vomiting Genitourinary: other (Vaginal discharge/itching) Musculoskeletal: no symptoms reported Skin: no symptoms reported All Other Systems Reviewed Negative Unless Noted: Yes Past Okcmcll-Oppjvo-Gwlses Hx Patient Social History Alcohol Beverage of Choice: Wine Type Used: Cigarettes Former Smoker, Quit: Dec 06, 2013 Recent Hopitalizations: Yes ([facility] FOR COLLAPSED LUNG) Immunizations Up To Date Tetanus Booster (TDap): Unknown Date of Pneumonia Vaccine: Nov 03, 2014 Date of Influenza Vaccine: May 18, 2020 Past Medical History Surgeries: Yes (chemical pleurodesis, pulmonary decortication) Lobectomy Respiratory: Yes (COPD, PNEUMOTHORAX) COPD, Emphysema Cardiac: No Neurological: No Reproductive Disorders: No Sexually Transmitted Disease: No HIV/AIDS: No Genitourinary: No Gastrointestinal: No Musculoskeletal: No Endocrine: No Hearing Impairment: Denies Cancer: No Psychosocial: No Integumentary: No Blood Disorders: No Adverse Reaction/Blood Tranf: No Family Medical History Cardiovascular disease 19 MOTHER G8 SISTER Completed stroke 19 MOTHER Parkinson's disease 19 FATHER No Pertinent Family Hx Physical Exam Vital Signs - First Documented 01/07/21 07:49 Temp 37.9 Pulse 95 Resp 18 B/P (MAP) 125/75 (92) Pulse Ox 74 O2 Delivery Nasal Cannula O2 Flow Rate 3.00 Capillary Refill : Height: 5'2.00" Weight: 100lbs. 3.0oz. 45.152860xw; 17.00 BMI Method:Stated General Appearance: WD/WN, no apparent distress HEENT: PERRL/EOMI Neck: supple Respiratory: lungs clear, normal breath sounds, no respiratory distress, no accessory muscle use, other (Oxygen saturations on 2 L 99 to 100%) Cardiovascular: regular rate, rhythm, tachycardia, other (Distal pulses intact, capillary refill is brisk) Gastrointestinal: non tender, soft Extremities: non-tender, normal inspection, no pedal edema, no calf tenderness Neurologic/Psychiatric: alert, normal mood/affect, oriented x 3 Skin: normal color, warm/dry Focused Exam Lactate Level 01/07/21 07:39: Lactic Acid Level 1.95 Lactic Acid Level Laboratory Tests Test 01/07/21 07:39 Lactic Acid Level 1.95 MMOL/L (0.50-2.00) Procedures/Interventions Date of ETT Placement: Dec 01, 2018 Time of ETT Placement: 711 Progress/Results/Core Measures Suspected Sepsis SIRS Temperature: Pulse: Respiratory Rate: Laboratory Tests 01/07/21 07:39: White Blood Count 14.2H Blood Pressure / Mean: 01/07/21 07:39: Lactic Acid Level 1.95 Laboratory Tests 01/07/21 07:39: Creatinine 0.69, INR Comment 0.9, Platelet Count 266, Total Bilirubin 0.7 Results/Orders Lab Results Laboratory Tests Test 01/07/21 07:39 01/07/21 07:54 Range/Units White Blood Count 14.2 H 4.3-11.0 10^3/uL Red Blood Count 4.73 3.80-5.11 10^6/uL Hemoglobin 15.1 11.5-16.0 g/dL Hematocrit 47 35-52 % Mean Corpuscular Volume 100 H 80-99 fL Mean Corpuscular Hemoglobin 32 25-34 pg Mean Corpuscular Hemoglobin Concent 32 32-36 g/dL Red Cell Distribution Width 13.2 10.0-14.5 % Platelet Count 266 130-400 10^3/uL Mean Platelet Volume 9.3 9.0-12.2 fL Immature Granulocyte % (Auto) 1 % Neutrophils (%) (Auto) 87 H 42-75 % Lymphocytes (%) (Auto) 4 L 12-44 % Monocytes (%) (Auto) 6 0-12 % Eosinophils (%) (Auto) 2 0-10 % Basophils (%) (Auto) 0 0-10 % Neutrophils # (Auto) 12.4 H 1.8-7.8 10^3/uL Lymphocytes # (Auto) 0.6 L 1.0-4.0 10^3/uL Monocytes # (Auto) 0.8 0.0-1.0 10^3/uL Eosinophils # (Auto) 0.3 0.0-0.3 10^3/uL Basophils # (Auto) 0.0 0.0-0.1 10^3/uL Immature Granulocyte # (Auto) 0.1 0.0-0.1 10^3/uL Neutrophils % (Manual) 85 % Lymphocytes % (Manual) 6 % Monocytes % (Manual) 8 % Eosinophils % (Manual) 1 % Band Neutrophils 0 % Blood Morphology Comment NORMAL Prothrombin Time 12.4 12.2-14.7 SEC INR Comment 0.9 0.8-1.4 Activated Partial Thromboplast Time 25 24-35 SEC Sodium Level 135 135-145 MMOL/L Potassium Level 4.0 3.6-5.0 MMOL/L Chloride Level 93 L 98-107 MMOL/L Carbon Dioxide Level 30 21-32 MMOL/L Anion Gap 12 5-14 MMOL/L Blood Urea Nitrogen 11 7-18 MG/DL Creatinine 0.69 0.60-1.30 MG/DL Estimat Glomerular Filtration Rate > 60 BUN/Creatinine Ratio 16 Glucose Level 93 70-105 MG/DL Lactic Acid Level 1.95 0.50-2.00 MMOL/L Calcium Level 9.6 8.5-10.1 MG/DL Corrected Calcium 9.6 8.5-10.1 MG/DL Total Bilirubin 0.7 0.1-1.0 MG/DL Aspartate Amino Transf (AST/SGOT) 26 5-34 U/L Alanine Aminotransferase (ALT/SGPT) 36 0-55 U/L Alkaline Phosphatase 77 40-136 U/L Total Protein 7.2 6.4-8.2 GM/DL Albumin 4.0 3.2-4.5 GM/DL Procalcitonin 0.03 <0.10 NG/ML Urine Color YELLOW Urine Clarity CLEAR Urine pH 8.0 5-9 Urine Specific [place] 1.015 L 1.016-1.022 Urine Protein TRACE H NEGATIVE Urine Glucose (UA) NEGATIVE NEGATIVE Urine Ketones NEGATIVE NEGATIVE Urine Nitrite NEGATIVE NEGATIVE Urine Bilirubin NEGATIVE NEGATIVE Urine Urobilinogen 0.2 < = 1.0 MG/DL Urine Leukocyte Esterase 1+ H NEGATIVE Urine RBC (Auto) NEGATIVE NEGATIVE Urine RBC RARE /HPF Urine WBC 2-5 /HPF Urine Squamous Epithelial Cells NONE /HPF Urine Crystals NONE /LPF Urine Bacteria NEGATIVE /HPF Urine Casts NONE /LPF Urine Mucus NEGATIVE /LPF Urine Culture Indicated NO My Orders Orders - SYD LISA MD Cbc With Automated Diff (01/07/21 07:44) Comprehensive Metabolic Panel (01/07/21 07:44) Blood Culture (01/07/21 07:44) Sputum Culture (01/07/21 07:44) Urinalysis (01/07/21 07:44) Urine Culture (01/07/21 07:44) Protime With Inr (01/07/21 07:44) Partial Thromboplastin Time (01/07/21 07:44) Chest 1 View, Ap/Pa Only (01/07/21 07:44) Ed Iv/Invasive Line Start (01/07/21 07:44) Ed Iv/Invasive Line Start (01/07/21 07:44) Vital Signs Adult Sepsis Patie Q15M (01/07/21 07:44) O2 (01/07/21 07:44) Remove Rings In Anticipation O (01/07/21 07:44) Lactic Acid Analyzer (01/07/21 07:44) Acetaminophen Tablet/Caplet (Tylenol T (01/07/21 08:00) Ns Iv 1000 Ml (Sodium Chloride 0.9%) (01/07/21 08:00) Manual Differential (01/07/21 07:39) Procalcitonin (Pct) (01/07/21 07:39) Fluconazole Tablet (Diflucan Tablet) (01/07/21 08:30) Medications Given in ED Current Medications Medications Dose Ordered Sig/Mark Route Start Time Stop Time Status Last Admin Dose Admin Acetaminophen 650 mg ONCE ONCE PO 01/07/21 08:00 01/07/21 08:01 DC 01/07/21 07:58 650 MG Fluconazole 200 mg ONCE ONCE PO 01/07/21 08:30 01/07/21 08:31 DC 01/07/21 08:58 200 MG Vital Signs/I&O 01/07/21 01/07/21 07:49 07:50 Temp 37.9 Pulse 95 Resp 18 B/P (MAP) 125/75 (92) Pulse Ox 74 97 O2 Delivery Nasal Cannula Nasal Cannula O2 Flow Rate 3.00 5.00 Capillary Refill : Progress Note : Time: 07:48 Progress Note 75-year-old female with a chief complaint of generalized malaise and not feeling well, shortness of breath and vaginal itching. Evaluation today includes a physical exam and a sepsis work-up. Patient will be given Tylenol and a liter of fluids. Work-up is pending at the time of this dictation. 0917 Patient seen and examined, evaluation today includes a physical exam, sepsis work-up. Patient has a mild leukocytosis at 14,000. She has a little bit of a left shift. Her lactic acid is negative as is her pro calcitonin. Her chest x- ray shows atelectasis versus evolving patchy bilateral lower lobe infiltrates. The patient is without cough. She had low-grade temperature here this morning at 100.2. She is treated in the emergency department with 650 mg of Tylenol, a liter of IV fluids and 200 mg of Diflucan for her vaginal itching. Patient desires discharge to home. She has no clinical or objective findings to warrant admission or further work-up from the emergency department. I did review her medical records including a CAT scan that she had last May. I do not believe that she has any clinical indications for reCAT scan from the emergency room at this time. My plan is to place her on doxycycline 100 mg twice a day for a week. I encouraged her to call Dr. Roca's office tomorrow for a closer follow-up appointment. She states that she is supposed to be having a CAT scan through Dr. Roca's office at some point in the very near future. I have encouraged her to follow-up about this. She will be given a prescription for a ProAir inhaler. She thinks that she needs something for afternoon and evening in addition to the daily inhalers that she uses in the morning. She states she had a bad reaction to her nebulized albuterol at home in recent weeks. Again patient desires discharge she does not want to be admitted nor does she have any indications for admission at this time. Oxygen saturations are 99% on her 4 L per nasal cannula. Her blood pressure is good. Her pulse is down to 100. All questions are sought and answered. Patient is stable for discharge. Diagnostic Imaging Diagonstic Imaging: Xray Plain Films/CT/US/NM/MRI: chest Comments [facility], [place] NAME: RICK BOOKER [facility] REC#: [id number] PT STATUS: REG ER : 1945 PHYSICIAN: SYD LISA MD ADMIT DATE: 01/07/21/ER Draft Date of Exam:01/07/21 CHEST 1 VIEW, AP/PA ONLY EXAMINATION: Portable chest compared to prior study from December 26, 2020. INDICATION: Sepsis, cough, and congestion. FINDINGS: Marked parenchymal distortion consolidation at the left lung apex appears similar to the prior examination. There is also some scarring at the right lung apex. There is left thoracic volume loss which is unchanged. There is shift of the mediastinum to the left. There is severe interstitial changes within the lungs. There appear to be some patchy opacities now at the lung bases which are more evident on the prior exam and some basilar infiltrate or pneumonia should be considered. There is no large effusion. IMPRESSION: 1. Severe interstitial lung disease with some patchy opacities at the lung bases that may reflect new atelectasis or infiltrate. Advanced parenchymal consolidation and distortion of the left lung apex and to a lesser degree at the right apex appears unchanged. There is stable left thoracic volume loss with leftward shift of the mediastinum. Dictated on workstation # [id number] Dict: 01/07/21805 Trans: 01/07/21 0813 [id number] [id number] Interpreted by: PAPI DENISE MD Electronically signed by: Departure Impression Primary Impression: COPD exacerbation Additional Impression: Yeast vaginitis Disposition: 01 HOME, SELF-CARE Condition: Stable Departure-Patient Inst. Decision time for Depature: 09:20 Referrals: SLICK DE SANTIAGO MD (PCP/Family) Primary Care Physician Patient Instructions: Chronic Obstructive Pulmonary Disease (COPD), Including Emphysema Add. Discharge Instructions: Take the doxycycline antibiotics twice daily for 7 days. Use the albuterol inhaler 2 puffs every 4-6 hours as needed for shortness of breath. Please call Dr. Roca's office tomorrow to inquire about your CAT scan of the chest and for a follow-up appointment. Come back to the emergency department for worsening shortness of breath, fever, chills or other emergent concerning symptoms. Scripts Albuterol Sulfate (PROAIR HFA) 1 Puff Puff 2 PUFF IH Q6H PRN for shortness of breath, #1 PUFF 1 PUFF = 90 MCG Prov: SYD LISA MD 01/07/21 Doxycycline Hyclate (Doxycycline Hyclate) 100 Mg Tablet 100 MG PO BID, #14 TAB Prov: SYD LISA MD 01/07/21 SYD LISA MD January 07, 2021 07:48
[2021-01-07 07:52] LABS: BASOPHILS % (AUTO) 0 % (0-10); EOSINOPHILS # (AUTO) 0.3 10^3/uL (0.0-0.3); EOSINOPHILS % (AUTO) 2 % (0-10); HEMATOCRIT 47 % (35-52); HEMOGLOBIN 15.1 g/dL (11.5-16.0); LYMPHOCYTES # (AUTO) 0.6 10^3/uL (1.0-4.0); LYMPHOCYTES % (AUTO) 4 % (12-44); MEAN CORPUSCULAR HEMOGLOBIN 32 pg (25-34); MEAN CORPUSCULAR HGB CONC 32 g/dL (32-36); MEAN CORPUSCULAR VOLUME 100 fL (80-99); MEAN PLATELET VOLUME 9.3 fL (9.0-12.2); MONOCYTES # (AUTO) 0.8 10^3/uL (0.0-1.0); MONOCYTES % (AUTO) 6 % (0-12); NEUTROPHILS # (AUTO) 12.4 10^3/uL (1.8-7.8); NEUTROPHILS % (AUTO) 87 % (42-75); PLATELET COUNT 266 10^3/uL (130-400); WHITE BLOOD COUNT 14.2 10^3/uL (4.3-11.0)
[2021-01-07 08:00] LABS: BILIRUBIN,URINE NEGATIVE (NEGATIVE); CLARITY,URINE CLEAR; COLOR,URINE YELLOW; GLUCOSE, URINE (UA) NEGATIVE (NEGATIVE); KETONES,URINE NEGATIVE (NEGATIVE); LEUKOCYTE ESTERASE ,URINE 1+ (NEGATIVE); NITRITE,URINE NEGATIVE (NEGATIVE); PROTEIN,URINE TRACE (NEGATIVE)
[2021-01-07] MEDS ORDERED: ACETAMINOPHEN 325 MG TABLET PO ONE (08:00)
[2021-01-07] MEDS ORDERED: NS IV 1000 ML 1,000 ML IV SCH (08:00)
[2021-01-07 08:02] LABS: CHLORIDE 93 MMOL/L (98-107); INR 0.9 (0.8-1.4); PROTHROMBIN TIME PATIENT 12.4 SEC (12.2-14.7); SODIUM 135 MMOL/L (135-145)
[2021-01-07 08:03] LABS: CALCIUM 9.6 MG/DL (8.5-10.1)
[2021-01-07 08:04] LABS: GLUCOSE 93 MG/DL (70-105); TOTAL PROTEIN 7.2 GM/DL (6.4-8.2)
[2021-01-07 08:05] LABS: CARBON DIOXIDE 30 MMOL/L (21-32)
[2021-01-07 08:06] LABS: BILIRUBIN,TOTAL 0.7 MG/DL (0.1-1.0)
[2021-01-07 08:08] LABS: ALKALINE PHOSPHATASE 77 U/L (40-136); CREATININE SERUM 0.69 MG/DL (0.60-1.30); GFR ESTIMATED > 60
[2021-01-07 08:09] LABS: BUN/CREATININE RATIO 16
[2021-01-07 08:11] LABS: ALANINE AMINOTRANSFERASE 36 U/L (0-55)
[2021-01-07 08:14] LABS: BACTERIA,URINE NEGATIVE /HPF; RBC,URINE RARE /HPF
--- NOTE | 2021-01-07 08:14 | Diagnostic Imaging Report ---
EXAMINATION: Portable chest compared to prior study from December 26, 2020. INDICATION: Sepsis, cough, and congestion. FINDINGS: Marked parenchymal distortion consolidation at the left lung apex appears similar to the prior examination. There is also some scarring at the right lung apex. There is left thoracic volume loss which is unchanged. There is shift of the mediastinum to the left. There is severe interstitial changes within the lungs. There appear to be some patchy opacities now at the lung bases which are more evident on the prior exam and some basilar infiltrate or pneumonia should be considered. There is no large effusion. IMPRESSION: 1. Severe interstitial lung disease with some patchy opacities at the lung bases that may reflect new atelectasis or infiltrate. Advanced parenchymal consolidation and distortion of the left lung apex and to a lesser degree at the right apex appears unchanged. There is stable left thoracic volume loss with leftward shift of the mediastinum. Dictated by: Dictated on workstation # [id number]
[2021-01-07] MEDS ORDERED: fluCOnazole (DIFLUCAN) 100 MG TAB PO ONE (08:30)
[2021-01-07 08:34] LABS: NEUTROPHILS % (MANUAL) 85 %
[2021-01-07 08:35] LABS: BAND NEUTROPHILS 0 %; EOSINOPHILS % (MANUAL) 1 %; LYMPHOCYTES % (MANUAL) 6 %; MONOCYTES % (MANUAL) 8 %; RBC MORPH NORMAL
[2021-01-07] MEDS ORDERED: RT-ALBUINH IH (09:22)
[2021-01-07] MEDS ORDERED: DOXY100T2 PO (09:22)
[2021-01-07 09:43] VITALS: BP 130/68
== END 2021-01-07 09:43 | disposition home or self-care (01) ==
LOC: EDUNIT# 07:13 → ER 07:14
DX: J44.1 Chronic obstructive pulmonary disease with (acute) exacerbation (principal); B37.3 Candidiasis of vulva and vagina; D72.829 Elevated white blood cell count, unspecified; R00.0 Tachycardia, unspecified; Z99.81 Dependence on supplemental oxygen; Z87.891 Personal history of nicotine dependence; Z79.899 Other long term (current) drug therapy
CPT/HCPCS: 36415; 71045; 80053; 81000; 83605; 84145; 85007; 85027; 85610; 85730; 87040; 87077; 87088

== ENCOUNTER 2021-01-09 09:37 | Inpatient (IN) | payer MEDICARE, OTHER ==
[2021-01-09] VITALS (10 sets, daily range): BP systolic 99–161; BP diastolic 60–87
[~2021-01-09] VITALS: Ht 157.5 cm; Wt 45.5 kg
[~2021-01-09 09:37] MED LIST changes: +DOXY100T2 PO; +RT-ALBUINH IH
[2021-01-09] MEDS ORDERED: methylPREDNISolone 125 MG (Solu-MEDROL) VIAL IVP NR (11:00)
[2021-01-09] MEDS ORDERED: morphine INJ 4 MG/ML 1 ML (VIAL/SYRINGE) IVP PRN (11:00)
[2021-01-09] MEDS ORDERED: RT-ALBUTEROL/IPRATROPIUM 3 ML (DUONEB) VIAL IH SCH (11:00)
[2021-01-09] MEDS ORDERED: ENOXAPARIN 40 MG/0.4 ML (LOVENOX) SYR SC SCH (11:00)
[2021-01-09] MEDS ORDERED: RT-ALBUTEROL/IPRATROPIUM 3 ML (DUONEB) VIAL IH PRN ×2 (11:00→13:30)
[2021-01-09] MEDS ORDERED: methylPREDNISolone 125 MG (Solu-MEDROL) VIAL IM NR (11:00)
[2021-01-09 11:18] LABS: ABG OXYGEN SATURATION 98 % (94-100); ABG PCO2 39 MMHG (35-45); ABG PH 7.45 (7.37-7.43); ABG PO2 84 MMHG (79-93); ABG TCO2 28.1 MMOL/L (21.0-31.0); HEMATOCRIT 43 % (35-52); HEMOGLOBIN 13.7 g/dL (11.5-16.0); MEAN CORPUSCULAR HEMOGLOBIN 32 pg (25-34); MEAN CORPUSCULAR HGB CONC 32 g/dL (32-36); MEAN CORPUSCULAR VOLUME 100 fL (80-99); MEAN PLATELET VOLUME 9.3 fL (9.0-12.2); PLATELET COUNT 234 10^3/uL (130-400); WHITE BLOOD COUNT 8.5 10^3/uL (4.3-11.0)
[2021-01-09] MEDS: RT--FLUTICASONE/SALMETEROL 113-14 (AIRDUO RespiCLICK) IH SCH ×2 (11:18→21:58)
[2021-01-09 11:19] LABS: ALLENS TEST YES-POS; INSPIRED O2 3 L; PATIENT TEMP 36.5; VENTILATOR NO
[2021-01-09] MEDS: LACTATED RINGERS 1,000 ML IV SCH (11:28)
[2021-01-09] MEDS: PANTOPRAZOLE 40 MG (PROTONIX) TAB PO SCH (11:28)
[2021-01-09] MEDS: meTOprolol TARTRATE 25 MG (LOPRESSOR) TABLET PO SCH ×2 (11:28→20:47)
[2021-01-09] MEDS: LORATADINE (CLARITIN) 10 MG TAB PO SCH (11:28)
[2021-01-09] MEDS: LEVOFLOXACIN 500 MG/D5W 100 ML (PRE-MIX) IV SCH (11:28)
[2021-01-09 11:38] LABS: ALANINE AMINOTRANSFERASE 40 U/L (0-55); ALBUMIN 3.6 GM/DL (3.2-4.5); ALKALINE PHOSPHATASE 73 U/L (40-136); BILIRUBIN,TOTAL 0.4 MG/DL (0.1-1.0); BUN/CREATININE RATIO 18; CALCIUM 8.9 MG/DL (8.5-10.1); CARBON DIOXIDE 27 MMOL/L (21-32); CHLORIDE 98 MMOL/L (98-107); CREATININE SERUM 0.57 MG/DL (0.60-1.30); GFR ESTIMATED > 60; GLUCOSE 113 MG/DL (70-105); PHOSPHORUS 2.4 MG/DL (2.3-4.7); SODIUM 133 MMOL/L (135-145); TOTAL PROTEIN 6.7 GM/DL (6.4-8.2)
[2021-01-09] MEDS ORDERED: ASPI-1238 PO (14:02)
[2021-01-09] MEDS ORDERED: FLUT1BLS INH (14:02)
[2021-01-09] MEDS ORDERED: CHOL20002 PO (14:02)
[2021-01-09] MEDS ORDERED: DOXY100T2 PO (14:02)
[2021-01-09] MEDS ORDERED: UMEC62.5 INH (14:02)
[2021-01-09] MEDS ORDERED: ALB0.5V INH (14:02)
[2021-01-09] MEDS ORDERED: METO-333 PO ×2 (14:02)
[2021-01-09] MEDS ORDERED: PRD10T PO (14:02)
[2021-01-09 14:11] LABS: BILIRUBIN,URINE NEGATIVE (NEGATIVE); CLARITY,URINE CLEAR; COLOR,URINE YELLOW; GLUCOSE, URINE (UA) TRACE (NEGATIVE); KETONES,URINE 1+ (NEGATIVE); LEUKOCYTE ESTERASE ,URINE TRACE (NEGATIVE); NITRITE,URINE NEGATIVE (NEGATIVE); PROTEIN,URINE NEGATIVE (NEGATIVE)
[2021-01-09 14:20] LABS: AMORPHOUS SEDIMENT,UR RARE AMOR URATES /LPF; BACTERIA,URINE TRACE /HPF
[2021-01-09] MEDS: RT-ALBUTEROL/IPRATROPIUM 3 ML (DUONEB) VIAL IH SCH ×3 (14:57→22:00)
--- NOTE | 2021-01-09 16:57 | Diagnostic Imaging Report ---
EXAMINATION: Chest 1 view HISTORY: Pneumonia COMPARISON: 01/07/2021 FINDINGS: There is extensive biapical scarring and capping, left greater than right with upper lobe architectural distortion. Lungs are emphysematous. There are patchy opacities in both lung bases. There is a mediastinal shift to the left. The appearance is similar to prior radiograph. IMPRESSION: 1. Unchanged appearance of radiographically extensive biapical scarring and patchy opacities in the bases which may represent scarring or pneumonia. Dictated by: Dictated on workstation # [id number]
[2021-01-09] MEDS: methylPREDNISolone 40 MG/ML (Solu-MEDROL) VIAL IV SCH (17:52)
[2021-01-09] MEDS ORDERED: dilTIAZem DRIP PRE-MIX 125 ML IV ONE (17:57)
[2021-01-09] MEDS ORDERED: NS IV 1000 ML 1,000 ML IV ONE (18:00)
[2021-01-09] MEDS: dilTIAZem DRIP PRE-MIX 125 ML IV SCH (18:07)
[2021-01-09] MEDS: MONTELUKAST 10 MG (SINGULAIR) TAB PO SCH (20:42)
--- NOTE | 2021-01-09 22:44 | History & Physical ---
History of Present Illness History of Present Illness Reason for visit/HPI 75 yo F with chronic respiratory failure direct admit from pulmonology clinic. She has been to the ER on 01/07/21 for continued dyspnea on exertion and worsening respiratory status. Repeat chest xray suggests pneumonia. She was admitted to 4th floor but this afternoon went into afib with rvr so she was transferred up to ICU and started on a diltiazem gtts as well as therapeutic lovenox. She is on levofloxacin for her pneumonia. Strep, legionella ordered and pending. blood cultures pending. Patient reports she is not wanting to but sure feels like she could. Patient reports she is unable to walk 10 feet without getting short of breath. Onset a couple weeks ago. She was on cefdinir and prednisone taper 2 weeks ago and had a 2 day period of feeling better but declined again. ER put her on doxycycline 01/07/21. Her baseline oxygen is 3-4 L which is about what she is requiring currently. She does continue to drink about 750ml of wine over an 8-10hour period during the day. She quit smoking 8 years ago. Date of Admission January 09, 2021 at 09:45 Date Seen by a Provider: January 09, 2021 Time Seen by a Provider: 22:39 I consulted on this patient on 01/09/21 22:39 Attending Physician bOed De Santiago MD Admitting Physician Obed De Santiago MD Consult Allergies and Home Medications Allergies Coded Allergies: No Known Drug Allergies (Verified , 04/05/15) Home Medications Albuterol Sulfate 18 Gm Hfa.aer.ad, 2 PUFF INH Q4H PRN for SHORTNESS OF BREATH, (Reported) Last Action: Reviewed Albuterol Sulfate 2.5 Mg/0.5 Ml Vial.neb, 2.5 MG INH Q6H PRN for SHORTNESS OF BREATH, (Reported) Last Action: Reviewed Aspirin 81 Mg Tablet.dr, 81 MG PO HS, (Reported) Last Action: Reviewed Cholecalciferol (Vitamin D3) 50 Mcg Capsule, 50 MCG PO HS, (Reported) Last Action: Reviewed Doxycycline Hyclate 100 Mg Tablet, 100 MG PO BID, (Reported) FILLED 01-07-2021 #14/7 DAY SUPPLY Last Action: Reviewed Fluticasone/Vilanterol 1 Each Blst.w.dev, 1 PUFF INH DAILY, (Reported) Last Action: Reviewed Metoprolol Tartrate 25 Mg Tablet, 12.5 MG PO 1800, (Reported) TAKES OF A 25NG Last Action: Reviewed Metoprolol Tartrate 25 Mg Tablet, 6.25 MG PO DAILY, (Reported) TAKES OF A 25MG TAB Last Action: Reviewed Prednisone 10 Mg Tab, MG PO DAILY, (Reported) FILLED 12-25-2020 #42/12 DAY SUPPLY TAPER DOSE FOLLOWS: 6 TABS FOR X 2 DAYS THEN DECRASE BY 1 TABLET EVERY OTHER DAY (6,6,5,5,4,4,3,3,2,2,1,1) Last Action: Reviewed Umeclidinium [place] 62.5 Mcg Blst.w.dev, 1 PUFF INH DAILY, (Reported) Last Action: Reviewed Patient Home Medication List Home Medication List Reviewed: Yes Past Rnussjb-Tpigwh-Tenxci Hx Patient Social History Alcohol Beverage of Choice: Wine Smoking Status: Former Smoker Former Smoker, Quit: Dec 06, 2013 Recent Hopitalizations: Yes ([facility] FOR COLLAPSED LUNG) Have you traveled recently?: Yes Alcohol Use?: Yes Pt feels they are or have been: No Tobacco type used: Cigarettes Immunizations Up To Date Tetanus Booster (TDap): Unknown Date of Pneumonia Vaccine: Nov 03, 2014 Date of Influenza Vaccine: May 31, 2020 Surgeries Yes (chemical pleurodesis, pulmonary decortication) Lobectomy Respiratory Yes (COPD, PNEUMOTHORAX) Cardiovascular No Atrial Fibrillation (with rvr 01/09/21) Neurological No Reproductive System Hx Reproductive Disorders: No Sexually Transmitted Disease: No HIV/AIDS: No Genitourinary No Gastrointestinal No Musculoskeletal No Endocrine History of Endocrine Disorders: No HEENT Hearing Impairment: Denies Cancer No Psychosocial History of Psychiatric Problem: No Integumentary History of Skin or Integumenta: No Blood Transfusions History of Blood Disorders: No Adverse Reaction to a Blood Tr: No Family Medical History Significant Family History: No Pertinent Family Hx Family Hx: Cardiovascular disease 19 MOTHER G8 SISTER Completed stroke 19 MOTHER Parkinson's disease 19 FATHER Review of Systems Review of Systems General: Chills; No Night Sweats HEENT: No Head Aches Pulmonary: Dyspnea, Cough Cardiovascular: No: Chest Pain, Palpitations Gastrointestinal: No: Nausea, Vomiting Genitourinary: No Dysuria Musculoskeletal: No: arm pain, back pain, hand pain, leg pain, foot pain Neurological: Weakness Physical Exam Vital Signs Vital Signs - First Documented 01/09/21 10:22 Temp 36.4 Pulse 79 Resp 18 B/P (MAP) 161/87 (111) Pulse Ox 94 O2 Delivery Nasal Cannula O2 Flow Rate 4.00 Capillary Refill : Height, Weight, BMI Height: 5'2.00" Weight: 100lbs. 3.0oz. 45.471768aw; 31.72 BMI Method:Stated General Appearance: Moderate Distress (respiratory with conversing.) HEENT: PERRL/EOMI Neck: Non Tender, Supple Respiratory: Decreased Breath Sounds (bases), Respiratory Distress, Rhonci, Wheezing Cardiovascular: Irregularly Irregular (rate controlled) Gastrointestinal: Non Tender, Soft Rectal: Deferred Back: No CVA Tenderness Extremity: Non Tender, No Calf Tenderness Neurologic/Psychiatric: Alert, Oriented x3 Skin: Warm/Dry Assessment/Plan Assessment/Plan Admission Dx acute on chronic respiratory failure afib with rvr Admission Status: Inpatient Order (span 2 midnights) Reason for Inpatient Admission: Patient will require over 2 midnights - as her respiratory status may decompensate quickly and the hospital would be the best place for her if this happens. Also she failed outpatient treatment of her antibiotics. So we will start IV antibiotics. Assessment and Plan 01/09/21- admitted for worsening respiratory failure- went into afib with rvr. -diltiazem gtts, therapeutic lovenox -cardiology consulted. -RT consulted, pulm consulted. -on steroids, levoquin to cover pneumonia. Dispo: prognosis poor- appears her respiratory reserve is low and her end stage COPD is progressing. She is a hospice candidate as it is likely she may go downhill fast and . Patient does not want hospice as she wants to continue to live. PT ordered to help with her stamina and assess for deficits. Problems: (1) Atrial fibrillation with RVR (2) Acute and chronic respiratory failure with hypoxia (3) COPD without exacerbation (4) Pneumonia (5) Hyponatremia Assessment & Plan: partially due to her 750ml of wine per day. -monitor OBED DE SANTIAGO MD January 09, 2021 22:44
[2021-01-10] VITALS (21 sets, daily range): BP systolic 96–137; BP diastolic 51–89
[2021-01-10] MEDS: methylPREDNISolone 40 MG/ML (Solu-MEDROL) VIAL IV SCH ×4 (00:01→17:38)
[2021-01-10] MEDS: ENOXAPARIN 80 MG/0.8 ML (LOVENOX) SYR SC SCH ×2 (00:01→10:53)
[2021-01-10] MEDS: LACTATED RINGERS 1,000 ML IV SCH (01:36)
[2021-01-10] MEDS: RT-ALBUTEROL/IPRATROPIUM 3 ML (DUONEB) VIAL IH SCH ×6 (03:09→21:54)
[2021-01-10 04:09] LABS: BASOPHILS % (AUTO) 0 % (0-10); EOSINOPHILS % (AUTO) 0 % (0-10); HEMATOCRIT 38 % (35-52); HEMOGLOBIN 12.3 g/dL (11.5-16.0); LYMPHOCYTES # (AUTO) 0.3 10^3/uL (1.0-4.0); LYMPHOCYTES % (AUTO) 5 % (12-44); MEAN CORPUSCULAR HEMOGLOBIN 32 pg (25-34); MEAN CORPUSCULAR HGB CONC 32 g/dL (32-36); MEAN CORPUSCULAR VOLUME 99 fL (80-99); MEAN PLATELET VOLUME 9.4 fL (9.0-12.2); MONOCYTES # (AUTO) 0.2 10^3/uL (0.0-1.0); MONOCYTES % (AUTO) 4 % (0-12); NEUTROPHILS # (AUTO) 5.9 10^3/uL (1.8-7.8); NEUTROPHILS % (AUTO) 91 % (42-75); PLATELET COUNT 228 10^3/uL (130-400); WHITE BLOOD COUNT 6.5 10^3/uL (4.3-11.0)
[2021-01-10 04:20] LABS: CHLORIDE 104 MMOL/L (98-107); POTASSIUM 3.9 MMOL/L (3.6-5.0); SODIUM 139 MMOL/L (135-145)
--- NOTE | 2021-01-10 04:20 | Pulmonary Consultation ---
SHAHRIAR LEWIS MED STUDENT 01/10/21 0420: History of Present Illness History of Present Illness Date Seen by Provider: January 10, 2021 Time Seen by Provider: 04:20 Date of Admission History of Present Illness Patient is a 75 year old female who was direct admitted to 4th floor after being seen in the pulm clinic yesterday. She had been seen in the ED on 01/07/21 for d yspnea on exertion. Repeat chest xray showed possible pneumonia. After being admitted to 4th floor patient went into afib with rvr and was subsequently transferred to ICU and started on a cardiazem gtt. She was also covered with levofloxacin for possible pneumonia. Currently she denies chest pain, headache, nausea, vomiting, diarrhea, recent infection. Reports SOB with exertion, denies SOB while resting. Denies pain. No further questions at this time. Allergies and Home Medications Allergies Coded Allergies: No Known Drug Allergies (Verified , 04/05/15) Home Medications Albuterol Sulfate 18 Gm Hfa.aer.ad, 2 PUFF INH Q4H PRN for SHORTNESS OF BREATH, (Reported) Albuterol Sulfate 2.5 Mg/0.5 Ml Vial.neb, 2.5 MG INH Q6H PRN for SHORTNESS OF BREATH, (Reported) Aspirin 81 Mg Tablet.dr, 81 MG PO HS, (Reported) Cholecalciferol (Vitamin D3) 50 Mcg Capsule, 50 MCG PO HS, (Reported) Doxycycline Hyclate 100 Mg Tablet, 100 MG PO BID, (Reported) FILLED 01-07-2021 #14/7 DAY SUPPLY Fluticasone/Vilanterol 1 Each Blst.w.dev, 1 PUFF INH DAILY, (Reported) Metoprolol Tartrate 25 Mg Tablet, 12.5 MG PO 1800, (Reported) TAKES OF A 25NG Metoprolol Tartrate 25 Mg Tablet, 6.25 MG PO DAILY, (Reported) TAKES OF A 25MG TAB Prednisone 10 Mg Tab, MG PO DAILY, (Reported) FILLED 12-25-2020 #42/12 DAY SUPPLY TAPER DOSE FOLLOWS: 6 TABS FOR X 2 DAYS THEN DECRASE BY 1 TABLET EVERY OTHER DAY (6,6,5,5,4,4,3,3,2,2,1,1) Umeclidinium [place] 62.5 Mcg Blst.w.dev, 1 PUFF INH DAILY, (Reported) Past Ecvlxpa-Xoiudz-Bsbqwj Hx Patient Social History Alcohol Use: Regular Use Alcohol Beverage of Choice: Wine (Reports drinking 2-3 glasses wine per day) Smoking Status: Former Smoker (quit in 2013/ 50+ pack year history) Type Used: Cigarettes Former Smoker, Quit: Dec 06, 2013 Recent Hopitalizations: Yes ([facility] FOR COLLAPSED LUNG) Have you traveled recently?: Yes Alcohol Use?: Yes Immunizations Up To Date Tetanus Booster (TDap): Unknown Date of Pneumonia Vaccine: Nov 03, 2014 Date of Influenza Vaccine: May 31, 2020 Past Medical History Surgeries: Yes (chemical pleurodesis, pulmonary decortication) Lobectomy Respiratory: Yes (COPD, PNEUMOTHORAX) COPD, Emphysema Cardiac: No Atrial Fibrillation (new onset this admission) Neurological: No Reproductive Disorders: No Sexually Transmitted Disease: No HIV/AIDS: No Genitourinary: No Gastrointestinal: No Musculoskeletal: No Endocrine: No Loss of Vision: Denies Hearing Impairment: Denies Cancer: No Psychosocial: No Integumentary: No Blood Disorders: No Adverse Reaction/Blood Tranf: No Family Medical History Cardiovascular disease 19 MOTHER G8 SISTER Completed stroke 19 MOTHER Parkinson's disease 19 FATHER No Pertinent Family Hx Review of Systems Constitutional: No: Fever, Chills Eyes: No: Pain, Vision change ENT: No: Ear pain, Mouth pain Respiratory: SOB with excertion; No: Cough, Dry, Hemoptysis, Pleuritic Pain Cardiovascular: No: Chest Pain, Palpitations, Edema Gastrointestinal: No: Nausea, Vomiting, Abdominal Pain, Diarrhea, Constipation Genitourinary: No Dysuria, No Frequency Musculoskeletal: No: neck pain, back pain Skin: No: Rash, Lesions Neurological: No: Weakness, Numbness Sepsis Event Evaluation Height, Weight, BMI Height: 5'2.00" Weight: 100lbs. 3.0oz. 45.877934cu; 31.72 BMI Method:Stated Exam Exam Vital Signs Date Time Temp Pulse Resp B/P (MAP) Pulse Ox O2 Delivery O2 Flow Rate FiO2 01/10/21 04:00 67 22 107/55 (72) 93 Nasal Cannula 4.00 01/10/21 03:00 64 11 99/59 (72) 97 Nasal Cannula 4.00 01/10/21 02:00 66 25 96/57 (70) 96 Nasal Cannula 4.00 01/10/21 01:00 70 22 112/55 (74) 96 Nasal Cannula 4.00 01/10/21 01:00 70 01/10/21 00:00 70 32 127/63 (84) 96 Nasal Cannula 4.00 01/09/21 23:00 94 28 131/69 (89) 94 Nasal Cannula 4.00 01/09/21 22:04 90 Nasal Cannula 4.00 01/09/21 22:00 71 25 119/73 (88) 92 Nasal Cannula 4.00 01/09/21 21:00 73 26 117/68 (84) 96 Nasal Cannula 4.00 01/09/21 20:00 Nasal Cannula 4.00 01/09/21 20:00 83 24 106/62 (77) 96 Nasal Cannula 4.00 01/09/21 19:39 87 18 105/61 (76) 95 Nasal Cannula 4.00 01/09/21 19:18 36.6 01/09/21 19:00 105 01/09/21 19:00 96 31 99/70 (80) 92 Nasal Cannula 4.00 01/09/21 17:50 36.2 131 18 112/83 (93) 93 Nasal Cannula 4.00 01/09/21 17:45 Nasal Cannula 4.00 01/09/21 16:10 36.6 115 22 119/60 (79) 93 Nasal Cannula 4.00 01/09/21 14:57 96 Nasal Cannula 2.00 01/09/21 12:15 133 01/09/21 11:44 36.5 80 20 152/75 (100) 97 Nasal Cannula 3.00 01/09/21 11:18 95 Nasal Cannula 3.00 01/09/21 10:22 36.4 79 18 161/87 (111) 94 Nasal Cannula 4.00 I & O 01/10/21 07:00 Intake Total 2710 ml Balance 2710 ml Height & Weight Height: 5'2.00" Weight: 100lbs. 3.0oz. 45.418284lk; 31.72 BMI Method:Stated General Appearance: No Apparent Distress, WD/WN HEENT: PERRL/EOMI, Pharynx Normal, Moist Mucous Membranes Neck: Full Range of Motion, Normal Inspection, Non Tender Respiratory: Chest Non Tender, Lungs Clear, No Accessory Muscle Use, No Respiratory Distress; No Crackles; Decreased Breath Sounds; No Stridor, No Wheezing Cardiovascular: No Edema, Normal Peripheral Pulses, Irregularly Irregular Capillary Refill: Less Than 3 Seconds Peripheral Pulses: 2+ Dorsalis Pedis (R), 2+ Left Dors-Pedis (L), 2+ Radial Pulses (R), 2+ Radial Pulses (L) Gastrointestinal: normal bowel sounds, non tender, soft; No distended, No guarding, No rebound, No tenderness Extremity: Normal Capillary Refill, Non Tender, No Calf Tenderness, No Pedal Edema Neurologic/Psychiatric: Oriented x3, No Motor/Sensory Deficits, 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 Skin: Normal Color, Warm/Dry Lymphatic: No Adenopathy Results Lab Laboratory Tests 01/09/21 11:10 01/10/21 04:00 Assessment/Plan Assessment/Plan Acute on chronic respiratory failure -oxygen via NC, wean as tolerated -solumedrol 40mg Q6hr -IS Q1hr WA -Encourage cough and deep breathing COPDAE -airduo BID -Duoneb q4hr -oxygen, wean as tolerated -solumedrol Pneumonia -blood cultures pending -levofloxacin ordered -legionella and strep pneumo antigen negative Afib with RVR -diltiazem gtt -consult cardiology -therapeutic lovenox Debility -consult PT and OT GI/dvt prophylaxis -protonix -lovenox EBENEZER ROCA DO 01/10/21 0452: Allergies and Home Medications Allergies Coded Allergies: No Known Drug Allergies (Verified , 04/05/15) Home Medications Albuterol Sulfate 18 Gm Hfa.aer.ad, 2 PUFF INH Q4H PRN for SHORTNESS OF BREATH, (Reported) Albuterol Sulfate 2.5 Mg/0.5 Ml Vial.neb, 2.5 MG INH Q6H PRN for SHORTNESS OF BREATH, (Reported) Aspirin 81 Mg Tablet.dr, 81 MG PO HS, (Reported) Cholecalciferol (Vitamin D3) 50 Mcg Capsule, 50 MCG PO HS, (Reported) Doxycycline Hyclate 100 Mg Tablet, 100 MG PO BID, (Reported) FILLED 01-07-2021 #14/7 DAY SUPPLY Fluticasone/Vilanterol 1 Each Blst.w.dev, 1 PUFF INH DAILY, (Reported) Metoprolol Tartrate 25 Mg Tablet, 12.5 MG PO 1800, (Reported) TAKES OF A 25NG Metoprolol Tartrate 25 Mg Tablet, 6.25 MG PO DAILY, (Reported) TAKES OF A 25MG TAB Prednisone 10 Mg Tab, MG PO DAILY, (Reported) FILLED 12-25-2020 #42/12 DAY SUPPLY TAPER DOSE FOLLOWS: 6 TABS FOR X 2 DAYS THEN DECRASE BY 1 TABLET EVERY OTHER DAY (6,6,5,5,4,4,3,3,2,2,1,1) Umeclidinium [place] 62.5 Mcg Blst.w.dev, 1 PUFF INH DAILY, (Reported) Past Vetzvtj-Tuoono-Dbiysv Hx Family Medical History Cardiovascular disease 19 MOTHER G8 SISTER Completed stroke 19 MOTHER Parkinson's disease 19 FATHER Review of Systems Time Seen by Provider: 04:52 Assessment/Plan Assessment/Plan Acute on chronic respiratory failure -oxygen via NC, wean as tolerated -solumedrol 40mg Q6hr -IS Q1hr WA -Encourage cough and deep breathing COPDAE -airduo BID -Solumedrol -Duoneb q4hr -oxygen, wean as tolerated Pneumonia -blood cultures pending -levofloxacin ordered -legionella and strep pneumo antigen negative Afib with RVR -diltiazem gtt -consult cardiology -therapeutic lovenox Debility -PT/OT GI/dvt prophylaxis -protonix -Lovenox Supervisory-Addendum Brief Verification & Attestation Participated in pt care: history, MDM, physical Personally performed: exam, history, MDM, supervision of care Care discussed with: Medical Student Procedures: n/a Results interpretation: Verified all documentation Verification and Attestation of Medical Student E/M Service A medical student performed and documented this service in my presence. I reviewed and verified all information documented by the medical student and made modifications to such information, when appropriate. I personally performed the physical exam and medical decision making. Ebenezer Roca, January 11, 2021,12:35 SHAHRIAR LEWIS MED STUDENT January 10, 2021 04:20 EBENEZER ROCA DO January 10, 2021 04:52
[2021-01-10 04:21] LABS: CALCIUM 8.7 MG/DL (8.5-10.1)
[2021-01-10 04:22] LABS: GLUCOSE 175 MG/DL (70-105)
[2021-01-10 04:24] LABS: CARBON DIOXIDE 25 MMOL/L (21-32)
[2021-01-10 04:26] LABS: CREATININE SERUM 0.59 MG/DL (0.60-1.30); GFR ESTIMATED > 60
[2021-01-10 04:27] LABS: BUN/CREATININE RATIO 15
[2021-01-10 04:28] LABS: MAGNESIUM 1.7 MG/DL (1.6-2.4)
[2021-01-10] MEDS: MAGNESIUM 1 GM/100 ML IVPB 100 ML IV SCH ×2 (06:14→08:38)
[2021-01-10] MEDS: RT--FLUTICASONE/SALMETEROL 113-14 (AIRDUO RespiCLICK) IH SCH ×2 (06:36→18:20)
--- NOTE | 2021-01-10 07:28 | Diagnostic Imaging Report ---
CHEST 1 VIEW, AP/PA ONLY Indication: Dyspnea Comparison: 01/09/2021 Findings: Chronic opacifications in architectural distortion along apices is unchanged. Right basilar heterogeneous opacities have mildly worsened. No pleural effusion. Stable cardiac mediastinal silhouette. Impression: 1. Mild increase in right basilar heterogeneous opacities could be due to atelectasis, aspiration or infection. 2. Other chronic pulmonary parenchymal changes are stable. Dictated by: Dictated on workstation # [id number]
[2021-01-10] MEDS: meTOprolol TARTRATE 25 MG (LOPRESSOR) TABLET PO SCH ×2 (08:47→20:53)
[2021-01-10] MEDS: dilTIAZem DRIP PRE-MIX 125 ML IV SCH (08:48)
--- NOTE | 2021-01-10 09:00 | Physical Therapy Evaluation ---
PT Evaluation-General Medical Diagnosis Admission Date January 09, 2021 at 09:45 Medical Diagnosis: dyspnea, pneumonia Onset Date: January 09, 2021 Therapy Diagnosis Therapy Diagnosis: impaired mobility, strength, endurance Height/Weight Height (Feet): 5 Height (Inches): 2.00 Weight (Pounds): 100 Weight (Ounces): 3.0 Precautions Precautions/Isolations: Standard Precautions Referral Physician: Chanelle Reason for Referral: Evaluation/Treatment Medical History Additional Medical History Past Medical History Surgeries: Yes (chemical pleurodesis, pulmonary decortication) Lobectomy Respiratory: Yes (COPD, PNEUMOTHORAX) COPD, Emphysema Cardiac: No Atrial Fibrillation (new onset this admission) Reviewed History: Yes Social History Current Living Status: Alone Entry Into Home: Stairs Without Railing Patient states she has several stairs, doesn't give an exact number Prior Prior Level of Function SCALE: Activities may be completed with or without assistive devices. 5-Wcqfvpvdnm-ofohpwg completes the activity by him/herself with no assistance from a helper. 5-Set-up or Clean-up Assistance-helper sets up or cleans up; patient completes activity. [place] assists only prior to or following the activity. 4-Supervision or Touching Assistance-helper provides verbal cues and/or touching/steadying and/or contact guard assistance as patient completes activity. Assistance may be provided throughout the activity or intermittently. 3-Partial/Moderate Assistance-helper does LESS THAN HALF the effort. [place] lifts, holds or supports trunk or limbs, but provides less than half the effort. 2-Substantial/Maximal Assistance-helper does MORE THAN HALF the effort. [place] lifts or holds trunk or limbs and provides more than half the effort. 4-Aakdtdnhz-fwucbs does ALL the effort. Patient does none of the effort to complete the activity. Or, the assistance of 2 or more helpers is required for the patient to complete the activity. If activity was not attempted, code reason: 7-Patient Refused. 9-Not Applicable-not attempted and the patient did not perform the activity before the current illness, exacerbation or injury. 10-Not Attempted due to Environmental Limitations-(lack of equipment, weather restraints, etc.). 88-Not Attempted due to Medical Conditions or Safety Concerns. Bed Mobility: 6 Transfers (B,C,W/C): 6 Gait: 6 Stairs: 6 Indoor Mobility (Ambulation): Independent Stairs: Independent PT Evaluation-Current Subjective Patient in bed pre tx, agrees to PT, has no complaints of pain. Pt/Family Goals to be independent at home Objective Patient Orientation: Person, Place, Situation Attachments: Oxygen, IV ROM/Strength ROM Lower Extremities WNL Strength Lower Extremities LLE (hip flexion 3+/5, knee flexion 4/5, knee exension 4/5, dorsiflexion 4/5), (hip flexion 3+/5, knee flexion 4/5, knee exension 4/5, dorsiflexion 4/5) Sensory Hearing: Functional Sensation Right Lower Extremit: Intact Sensation Left Lower Extremity: Intact Transfers Roll Left to Right (QC): 6 Lying to Sitting/Side of Bed(Q: 6 Sit to Stand (QC): 6 Chair/Cvl-pz-Bipih Xfer(QC): 6 Balance Sitting Static: Normal Sitting Dynamic: Normal Standing Static: Normal Standing Dynamic: Normal Assessment/Needs Patient in bedside chair post tx. Patient's O2 went down to 84% with just a transfer to chair. After about 5 min of purse lip breathing it came back up to 90%. It drops below 90 with just talking. LE exercises were not performed yet due to this. Rehab Potential: Fair PT Office Associate Goals Intermediate Goals PT Intermediate Goals Time Frame: Jan 17, 2021 Roll Left & Right (QC): 6 Sit to Lying (QC): 6 Lying-Sitting on Side/Bed(QC): 6 Sit to Stand (QC): 6 Chair/Ije-kw-Gzcvd Xfer(QC): 6 Walk 10 feet (QC): 6 Walk 50ft with 2 Turns (QC): 4 PT Plan Problem List Problem List: Activity Tolerance, Functional Strength, Safety, Balance, Gait, Transfer Treatment/Plan Treatment Plan: Continue Plan of Care Treatment Plan: Education, Functional Activity Ambrosio, Functional Strength, Gait, Safety, Therapeutic Exercise, Transfers Treatment Duration: Jan 17, 2021 Frequency: 6 times per week Estimated Hrs Per Day: .25 hour per day Patient and/or Family Agrees t: Yes Safety Risks/Education Patient Education: Transfer Techniques, Correct Positioning, Safety Issues Teaching Recipient: Patient Teaching Methods: Demonstration, Discussion Response to Teaching: Reinforcement Needed Discharge Recommendations Plan Patient will perform bed mobility and transfer training, balance and endurance training, functional strengthening, stair training, gait training, and education, to improve functional mobility and independence at home. Therapy Discharge Recommendati: Scheduled Assistance, Home & Family, Post Acute PT Time/GCodes Time In: 822 Time Out: 834 Total Billed Treatment Time: 12 Total Billed Treatment 1 visit RAMO Potts' RAPHAEL SPENCER PT January 10, 2021 09:00
[2021-01-10] MEDS: PANTOPRAZOLE 40 MG (PROTONIX) TAB PO SCH (10:53)
[2021-01-10] MEDS: LEVOFLOXACIN 500 MG/D5W 100 ML (PRE-MIX) IV SCH (10:53)
[2021-01-10] MEDS: LORATADINE (CLARITIN) 10 MG TAB PO SCH (10:53)
--- NOTE | 2021-01-10 13:24 | Progress Note ---
Subjective Subjective Date Seen by Provider: January 10, 2021 Time Seen by Provider: 13:21 No overnight events. oxygen dropped to 80 with changing position in hospital bed PT was working with patient. Patient is getting down in dumps because of her respiratory status. She was eating a hamburger for lunch today. Discussed with patient code status and see wants to remain DNR as noted on previous discussions over last 2 years. Review of Systems General: Chills; No Night Sweats HEENT: No Head Aches Pulmonary: Dyspnea, Cough Cardiovascular: No: Chest Pain, Palpitations Gastrointestinal: No: Nausea, Vomiting Genitourinary: No Dysuria Musculoskeletal: No: arm pain, back pain, hand pain, leg pain, foot pain Neurological: Weakness Objective Exam Vital Signs Vital Signs Date Time Temp Pulse Resp B/P (MAP) Pulse Ox O2 Delivery O2 Flow Rate FiO2 01/10/21 12:32 78 01/10/21 12:30 36.2 01/10/21 12:00 61 35 108/75 (86) 97 Nasal Cannula 4.00 01/10/21 11:00 55 32 105/69 (81) 86 Nasal Cannula 4.00 01/10/21 10:46 97 Nasal Cannula 5.00 01/10/21 10:00 53 28 100/59 (73) 93 Nasal Cannula 4.00 01/10/21 09:00 85 38 111/62 (78) 97 Nasal Cannula 4.00 01/10/21 08:00 Nasal Cannula 4.00 01/10/21 08:00 72 21 112/62 (79) 100 Nasal Cannula 4.00 01/10/21 07:00 76 39 116/89 (98) 97 Nasal Cannula 4.00 01/10/21 06:36 98 Nasal Cannula 5.00 01/10/21 06:32 60 01/10/21 06:00 70 20 107/78 (88) 100 Nasal Cannula 4.00 01/10/21 05:00 60 19 102/64 (77) 99 Nasal Cannula 4.00 01/10/21 04:00 67 22 107/55 (72) 93 Nasal Cannula 4.00 01/10/21 03:00 64 11 99/59 (72) 97 Nasal Cannula 4.00 01/10/21 02:00 66 25 96/57 (70) 96 Nasal Cannula 4.00 01/10/21 01:00 70 22 112/55 (74) 96 Nasal Cannula 4.00 01/10/21 01:00 70 01/10/21 00:00 70 32 127/63 (84) 96 Nasal Cannula 4.00 01/09/21 23:00 94 28 131/69 (89) 94 Nasal Cannula 4.00 01/09/21 22:04 90 Nasal Cannula 4.00 01/09/21 22:00 71 25 119/73 (88) 92 Nasal Cannula 4.00 01/09/21 21:00 73 26 117/68 (84) 96 Nasal Cannula 4.00 01/09/21 20:00 Nasal Cannula 4.00 01/09/21 20:00 83 24 106/62 (77) 96 Nasal Cannula 4.00 01/09/21 19:39 87 18 105/61 (76) 95 Nasal Cannula 4.00 01/09/21 19:18 36.6 01/09/21 19:00 105 01/09/21 19:00 96 31 99/70 (80) 92 Nasal Cannula 4.00 01/09/21 17:50 36.2 131 18 112/83 (93) 93 Nasal Cannula 4.00 01/09/21 17:45 Nasal Cannula 4.00 01/09/21 16:10 36.6 115 22 119/60 (79) 93 Nasal Cannula 4.00 01/09/21 14:57 96 Nasal Cannula 2.00 I & O 01/10/21 06:59 Intake Total 2910 ml Balance 2910 ml General Appearance: Moderate Distress (respiratory with conversing.) HEENT: PERRL/EOMI Neck: Non Tender, Supple Respiratory: Decreased Breath Sounds (bases), Respiratory Distress, Rhonci, Wheezing Cardiovascular: Irregularly Irregular (rate controlled) Gastrointestinal: Non Tender, Soft Rectal: Deferred Back: No CVA Tenderness Extremity: Non Tender, No Calf Tenderness Neurologic/Psychiatric: Alert, Oriented x3 Skin: Warm/Dry Lymphatic: No Adenopathy Results Lab Laboratory Tests 01/09/21 14:04: Urine Color YELLOW, Urine Clarity CLEAR, Urine pH 6.0, Urine Specific [place] 1.020, Urine Protein NEGATIVE, Urine Glucose (UA) TRACEH, Urine Ketones 1+H, Urine Nitrite NEGATIVE, Urine Bilirubin NEGATIVE, Urine Urobilinogen 0.2, Urine Leukocyte Esterase TRACEH, Urine RBC (Auto) NEGATIVE, Urine RBC NONE, Urine WBC 2-5, Urine Crystals PRESENTH, Urine Amorphous Sediment RARE MILES URATESH, Urine Bacteria TRACE, Urine Casts NONE, Urine Mucus SMALLH, Urine Culture Indicated NO, Urine Legionella pneumophilia Ag Negative, Streptococcus pneumoniae Antigen Negative 01/10/21 04:00: White Blood Count 6.5, Red Blood Count 3.87, Hemoglobin 12.3, Hematocrit 38, Mean Corpuscular Volume 99, Mean Corpuscular Hemoglobin 32, Mean Corpuscular Hemoglobin Concent 32, Red Cell Distribution Width 13.3, Platelet Count 228, Mean Platelet Volume 9.4, Immature Granulocyte % (Auto) 1, Neutrophils (%) (Auto) 91H, Lymphocytes (%) (Auto) 5L, Monocytes (%) (Auto) 4, Eosinophils (%) (Auto) 0, Basophils (%) (Auto) 0, Neutrophils # (Auto) 5.9, Lymphocytes # (Auto) 0.3L, Monocytes # (Auto) 0.2, Eosinophils # (Auto) 0.0, Basophils # (Auto) 0.0, Immature Granulocyte # (Auto) 0.0, Sodium Level 139, Potassium Level 3.9, Chloride Level 104, Carbon Dioxide Level 25, Anion Gap 10, Blood Urea Nitrogen 9, Creatinine 0.59L, Estimat Glomerular Filtration Rate > 60, BUN/Creatinine Ratio 15, Glucose Level 175H, Calcium Level 8.7, Phosphorus Level 3.0, Magnesium Level 1.7, Procalcitonin 0.04 Assessment/Plan Assessment/Plan Admission Dx acute on chronic respiratory failure afib with rvr Assessment and Plan 01/09/21- admitted for worsening respiratory failure- went into afib with rvr. -diltiazem gtts, therapeutic lovenox -cardiology consulted. -RT consulted, pulm consulted. -on steroids, levoquin to cover pneumonia. 01/10/21- sodium level normal with IVF. -strep pne, legionella antigen negative. -STOPPED lovenox 80mg BID because she does not weight 78Kg- (she received 2 doses) -she weighs about 100pounds- ~45kg- changed to 45mg BID to start tomorrow. -monitor for any bleeding. Disp: prognosis guarded due to her respiratory status. Problems: (1) Atrial fibrillation with RVR (2) Acute and chronic respiratory failure with hypoxia (3) Pneumonia (4) Hyponatremia Assessment & Plan: partially due to her 750ml of wine per day. -monitor (5) COPD exacerbation Admission Dx acute on chronic respiratory failure afib with rvr Clinical Quality Measures Admission Status Admission Dx acute on chronic respiratory failure afib with rvr SLICK DE SANTIAGO MD January 10, 2021 13:24
--- NOTE | 2021-01-10 13:54 | Occupational Therapy Eval ---
OT Evaluation-General/PLF Medical Diagnosis Admission Date January 09, 2021 at 09:45 Medical Diagnosis: dyspnea, pneumonia/A-fib, RVR Onset Date: January 07, 2021 Therapy Diagnosis Therapy Diagnosis: Weakness Height/Weight Height (Feet): 5 Height (Inches): 2.00 Weight (Pounds): 100 Weight (Ounces): 3.0 Precautions Precautions/Isolations: Standard Precautions Weight Bear Status Weight Bearing Restriction: Weight Bearing/Tolerated Referral Physician: Chanelle Referral Reason: Activity Tolerance, Self Care, Evaluation/Treatment, Strengthening/ROM Medical History Pertinent Medical History: COPD Additional Medical History Pneumothorax Current History Pt. came to ER on 01-07-21 with pneumonia. Admitted on 01-09-21 with A-fib/RVR. Reviewed History: Yes Social History Home: Single Level Current Living Status: Alone Entry Into Home: Stairs Without Railing Steps Into Home: 2 ADL-Prior Level of Function SCALE: Activities may be completed with or without assistive devices. 0-Llpdbmynmy-zmxlsjh completes the activity by him/herself with no assistance from a helper. 5-Set-up or Clean-up Assistance-helper sets up or cleans up; patient completes activity. [place] assists only prior to or following the activity. 4-Supervision or Touching Assistance-helper provides verbal cues and/or touching/steadying and/or contact guard assistance as patient completes activity. Assistance may be provided throughout the activity or intermittently. 3-Partial/Moderate Assistance-helper does LESS THAN HALF the effort. [place] lifts, holds or supports trunk or limbs, but provides less than half the effort. 2-Substantial/Maximal Assistance-helper does MORE THAN HALF the effort. [place] lifts or holds trunk or limbs and provides more than half the effort. 0-Vqrhvxfqu-tkklwa does ALL the effort. Patient does none of the effort to complete the activity. Or, the assistance of 2 or more helpers is required for the patient to complete the activity. If activity was not attempted, code reason: 7-Patient Refused. 9-Not Applicable-not attempted and the patient did not perform the activity before the current illness, exacerbation or injury. 10-Not Attempted due to Environmental Limitations-(lack of equipment, weather restraints, etc.). 88-Not Attempted due to Medical Conditions or Safety Concerns. ADL PLOF Comments Pt. lives alone but her daughters live close and come by often. 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 She wears 3 L 02 on at home. She does not use an assistive device. She is independent with ADLs. 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 Drive Self: Yes OT Current Status Subjective No pain reported. Appearance Pt. up in chair. Alert and oriented. Playing game on phone. Agrees to work with OT. Mental Status/Objective Patient Orientation: Person, Place, Time, Situation Attachments: IV, Oxygen, Telemetry Current Glasses/Contacts: Yes Upper Extremity ROM WFL ADL-Treatment Eating (QC): 6 (Pt. working on eating breakfast when OT enters room.) On/Off Footwear (QC): 6 (Pt. able to doff/don slipper socks seated.) Toileting Hygiene (QC): 4 (SBA due to dipping oxygen.) Other Treatments Pt. up in chair. She is able to stand with SBA, take several steps to toilet, and stand with no difficulty or LOB while OT adjusts toilet for her. Pt. toilets self with SBA and ambulates to bed. Transfers to bed with Mod I. Note that pt's oxygen saturations do drop to low 80's, and come up after several minutes of deep breathing. Sats dip with any activity or talking, and require increased time throughout to increase. All needs met back in bed. Education OT Patient Education: Correct positioning, Modified ADL techniques, Progress toward Goal/Update tx plan, Purpose of tx/functional activities, Reviewed precautions, Rehab process, Transfer techniques Teaching Recipient: Patient Teaching Methods: Demonstration, Discussion Response to Teaching: Verbalize Understanding, Return Demonstration OT Alf Goals Superintendent [employer] Goals Time Frame: Jan 24, 2021 Eating (QC): 6 Oral Hygiene (QC): 6 Toileting Hygiene (QC): 6 Shower/Bathe Self (QC): 4 Upper Body Dressing (QC): 6 Lower Body Dressing (QC): 6 On/Off Footwear (QC): 6 Additional Goals: 1-Demonstrate ADL Tasks, 2-Verbalize Understanding, 3- ImproveStrength/Ambrosio 1=Demonstrate adherence to instructed precautions during ADL tasks. 2=Patient will verbalize/demonstrate understanding of assistive devices/modifica tions for ADL. 3=Patient will improve strength/tolerance for activity to enable patient to perform ADL's. OT Education/Plan Problem List/Assessment Assessment: Decreased Activ Tolerance, Impaired I ADL's, Impaired Self-Care Skills Discharge Recommendations Plan/Recommendations: Continue POC Therapy Discharge Recommendati: Home & Family Comment Equipment needs to be determined. Treatment Plan/Plan of Care Treatment,Training & Education: Yes Patient would benefit from OT for education, treatment and training to promote independence in ADL's, mobility, safety and/or upper extremity function for ADL's. Plan of Care: ADL Retraining, Functional Mobility, UE Funct Exercise/Act Treatment Duration: Jan 24, 2021 Frequency: 5 times per week Estimated Hrs Per Day: .25 hour per day Agreement: Yes Rehab Potential: Fair Time/GCodes Start Time: 10:13 Stop Time: 10:30 Total Time Billed (hr/min): 17 Billed Treatment Time 1, MIREILLE YAO OT January 10, 2021 13:54
--- NOTE | 2021-01-10 14:01 | Consultation-Cardiology ---
HPI-Cardiology Cardiology Consultation Date of Consultation 01/10/21 Date of Admission 01/09/21 Time Seen by Provider: 13:21 Indication: ARF, pneumonia Attending Physician/PCP: SLICK DE SANTIAGO MD Admitting/Applications Administrator Physician: SLICK DE SANTIAGO MD HPI Pt is a 75y/o F with history of chronic respiratory failure, alcoholism, extobaccoism, left lobectomy and palpitations with PVCs who was admitted yesterday with acute on chronic respiratory failure. She was admitted to fourth floor and found to have pneumonia on CXR. Around 1500 yesterday she was found to be in Afib with RVR and was sent up to ICU. She was started on diltiazem drip and lovenox and rate was controlled. Pt is on metoprolol 25mg at home that she cuts into fourths and takes at home for palpitations. Last echo was 10/11/2020 and showed LVEF of 55-65%. No recent stress test. [id number] score of 3. She appeared comfortable today sitting up in her bed eating lunch. She is on 4L NC and O2 sat 90%. She says she has felt fine after being placed on diltiazem drip. Reports no chest pain, flutters, dizziness, syncope since conversion. Home Medications & Allergies Allergies: Coded Allergies: No Known Drug Allergies (Verified , 04/05/15) Home Medication List Reviewed: Yes [id number]-[id number] Hx Patient Social History Smoking Status: Former Smoker (quit in 2013/ 50+ pack year history) Former smoker/When Quit: Apr 05, 2014 Type Used: Cigarettes Recent Hopitalizations: Yes (KU FOR COLLAPSED LUNG) Have you traveled recently?: Yes Alcohol Use?: Yes Immunizations Up To Date Tetanus Booster (TDap): Unknown Date of Pneumonia Vaccine: Nov 03, 2014 Date of Influenza Vaccine: May 31, 2020 Past Medical History Chronic respiratory failure Alcoholism Extobaccoism Palpitations with frequent PVCs Left lobectomy Family Medical History Significant Family History: No Pertinent Family Hx Family History: Cardiovascular disease 19 MOTHER G8 SISTER Completed stroke 19 MOTHER Parkinson's disease 19 FATHER Review of Systems-General Review of Systems Constitutional: see HPI; No chills, No diaphoresis EENTM: see HPI; No blurred vision, No double vision Respiratory: see HPI, dyspnea on exertion, short of breath, wheezing Cardiovascular: see HPI; No chest pain; palpitations Gastrointestinal: No RUQ, No LUQ, No RLQ, No LLQ; see HPI Genitourinary: see HPI; No decreased output, No discharge Musculoskeletal: see HPI; No back pain, No joint pain Skin: see HPI; No change in color, No change in hair/nails Psychiatric/Neurological: See HPI; Denies Anxiety, Denies Depressed, Denies Emotional Problems All Other Systems Reviewed Negative Unless Noted: Yes Reviewed Test Results Reviewed Test Results Lab Laboratory Tests Test 01/10/21 04:00 Range/Units White Blood Count 6.5 4.3-11.0 10^3/uL Red Blood Count 3.87 3.80-5.11 10^6/uL Hemoglobin 12.3 11.5-16.0 g/dL Hematocrit 38 35-52 % Mean Corpuscular Volume 99 80-99 fL Mean Corpuscular Hemoglobin 32 25-34 pg Mean Corpuscular Hemoglobin Concent 32 32-36 g/dL Red Cell Distribution Width 13.3 10.0-14.5 % Platelet Count 228 130-400 10^3/uL Mean Platelet Volume 9.4 9.0-12.2 fL Immature Granulocyte % (Auto) 1 % Neutrophils (%) (Auto) 91 H 42-75 % Lymphocytes (%) (Auto) 5 L 12-44 % Monocytes (%) (Auto) 4 0-12 % Eosinophils (%) (Auto) 0 0-10 % Basophils (%) (Auto) 0 0-10 % Neutrophils # (Auto) 5.9 1.8-7.8 10^3/uL Lymphocytes # (Auto) 0.3 L 1.0-4.0 10^3/uL Monocytes # (Auto) 0.2 0.0-1.0 10^3/uL Eosinophils # (Auto) 0.0 0.0-0.3 10^3/uL Basophils # (Auto) 0.0 0.0-0.1 10^3/uL Immature Granulocyte # (Auto) 0.0 0.0-0.1 10^3/uL Sodium Level 139 135-145 MMOL/L Potassium Level 3.9 3.6-5.0 MMOL/L Chloride Level 104 98-107 MMOL/L Carbon Dioxide Level 25 21-32 MMOL/L Anion Gap 10 5-14 MMOL/L Blood Urea Nitrogen 9 7-18 MG/DL Creatinine 0.59 L 0.60-1.30 MG/DL Estimat Glomerular Filtration Rate > 60 BUN/Creatinine Ratio 15 Glucose Level 175 H 70-105 MG/DL Calcium Level 8.7 8.5-10.1 MG/DL Phosphorus Level 3.0 2.3-4.7 MG/DL Magnesium Level 1.7 1.6-2.4 MG/DL Procalcitonin 0.04 <0.10 NG/ML Physical Exam Physical Exam Vital Signs Vital Signs - First Documented 01/09/21 10:22 Temp 36.4 Pulse 79 Resp 18 B/P (MAP) 161/87 (111) Pulse Ox 94 O2 Delivery Nasal Cannula O2 Flow Rate 4.00 Capillary Refill : Less Than 3 Seconds Height, Weight, BMI Height: 5'2.00" Weight: 100lbs. 3.0oz. 45.171466sp; 31.72 BMI Method:Stated General Appearance: No Apparent Distress, WD/WN, Moderate Distress (respiratory with conversing.) HEENT: PERRL/EOMI, Normal ENT Inspection Neck: Non Tender, Supple Respiratory: Decreased Breath Sounds (bases), Respiratory Distress, Rhonci, Wheezing Cardiovascular: Systolic Murmur, Irregularly Irregular Gastrointestinal: Non Tender, Soft Rectal: Deferred Back: No CVA Tenderness Extremity: Non Tender, No Calf Tenderness Neurologic/Psychiatric: Alert, Oriented x3 Skin: Warm/Dry Lymphatic: No Adenopathy A/P-Cardiology Admission Diagnosis Atrial Fibrillation Acute on chronic respiratory failure Alcoholism Palpitations with frequent PVCs Assessment/Plan Atrial Fibrillation - continue diltiazem drip and will switch lovenox to eliquis 5mg, we will consider ALBERTO and cardioversion once the pneumonia resolves if she did not convert on her own Patient cannot tolerate amiodarone due to to underlying COPD. Unable to tolerate sotalol with her reactive airway disease. I am considering the use of class Ic antiarrhythmic medication once we do the stress test as an outpatient. For now we will continue with rate control medication. Acute on chronic respiratory failure, pneumonia - O2 support and continue abx, managed by PCP Alcoholism, patient educated on reduction of alcohol intake Palpitations with frequent PVCs History of left lobectomy Supervisory-Addendum Brief Verification & Attestation Participated in pt care: history, MDM, physical Personally performed: exam, history, MDM, supervision of care Care discussed with: Medical Student Procedures: n/a Results interpretation: Verified all documentation Verification and Attestation of Medical Student E/M Service A medical student performed and documented this service in my presence. I reviewed and verified all information documented by the medical student and made modifications to such information, when appropriate. I personally performed the physical exam and medical decision making. Juan Savage, January 10, 2021,15:12 NATASHA SMITH MED STUDENT January 10, 2021 2:01 pm JUAN SAVAGE MD January 10, 2021 3:12 pm
[2021-01-10] MEDS: MONTELUKAST 10 MG (SINGULAIR) TAB PO SCH (20:52)
[2021-01-10] MEDS: APIXABAN 5 MG (ELIQUIS) TABLET PO SCH (20:52)
[2021-01-11] VITALS (21 sets, daily range): BP systolic 106–132; BP diastolic 62–82
[2021-01-11] MEDS: meTOprolol TARTRATE 25 MG (LOPRESSOR) TABLET PO SCH ×3 (00:48→20:00)
[2021-01-11] MEDS: methylPREDNISolone 40 MG/ML (Solu-MEDROL) VIAL IV SCH ×5 (00:53→22:38)
[2021-01-11] MEDS: LORazepam INJ 2 MG/ML (ATIVAN) VIAL IV PRN ×2 (02:00→20:00)
[2021-01-11] MEDS: RT-ALBUTEROL/IPRATROPIUM 3 ML (DUONEB) VIAL IH SCH ×6 (02:04→22:03)
[2021-01-11 03:35] LABS: BASOPHILS % (AUTO) 0 % (0-10); EOSINOPHILS % (AUTO) 0 % (0-10); HEMATOCRIT 39 % (35-52); HEMOGLOBIN 12.3 g/dL (11.5-16.0); LYMPHOCYTES # (AUTO) 0.3 10^3/uL (1.0-4.0); LYMPHOCYTES % (AUTO) 2 % (12-44); MEAN CORPUSCULAR HEMOGLOBIN 32 pg (25-34); MEAN CORPUSCULAR HGB CONC 32 g/dL (32-36); MEAN CORPUSCULAR VOLUME 99 fL (80-99); MEAN PLATELET VOLUME 9.3 fL (9.0-12.2); MONOCYTES # (AUTO) 0.5 10^3/uL (0.0-1.0); MONOCYTES % (AUTO) 4 % (0-12); NEUTROPHILS # (AUTO) 13.6 10^3/uL (1.8-7.8); NEUTROPHILS % (AUTO) 94 % (42-75); PLATELET COUNT 243 10^3/uL (130-400); WHITE BLOOD COUNT 14.5 10^3/uL (4.3-11.0)
[2021-01-11 03:46] LABS: CHLORIDE 103 MMOL/L (98-107); POTASSIUM 4.2 MMOL/L (3.6-5.0); SODIUM 138 MMOL/L (135-145)
[2021-01-11 03:48] LABS: CALCIUM 8.5 MG/DL (8.5-10.1); GLUCOSE 161 MG/DL (70-105)
[2021-01-11 03:50] LABS: CARBON DIOXIDE 24 MMOL/L (21-32)
[2021-01-11 03:52] LABS: CREATININE SERUM 0.61 MG/DL (0.60-1.30); GFR ESTIMATED > 60; PHOSPHORUS 2.7 MG/DL (2.3-4.7)
[2021-01-11 03:53] LABS: BUN/CREATININE RATIO 15
[2021-01-11 03:54] LABS: MAGNESIUM 2.3 MG/DL (1.6-2.4)
--- NOTE | 2021-01-11 04:05 | Pulmonary Progress Note ---
SHAHRIAR LEWIS MED STUDENT 01/11/21 0405: Subjective Date Seen by a Provider: January 11, 2021 Time Seen by a Provider: 04:01 Subjective/Events-last exam Patient currently SOB. She states "I'm going to ". Discussed intubation and ventilatory management if needed and patient would like to discuss possible hospice care. She denies pain or other complaints currently. Review of Systems General: No Chills, No Night Sweats HEENT: No Head Aches, No Visual Changes Pulmonary: Dyspnea; No Cough, No Pleuritic Chest Pain Cardiovascular: No: Chest Pain, Palpitations Gastrointestinal: No: Nausea, Vomiting Genitourinary: No Dysuria, No Frequency Musculoskeletal: No: neck pain, back pain Neurological: No: Weakness, Numbness Sepsis Event Evaluation Height, Weight, BMI Height: 5'2.00" Weight: 100lbs. 3.0oz. 45.268135dn; 31.72 BMI Method:Stated Focused Exam Lactate Level 01/09/21 11:10: Lactic Acid Level 0.99 Exam Exam Vital Signs Date Time Temp Pulse Resp B/P (MAP) Pulse Ox O2 Delivery O2 Flow Rate FiO2 01/11/21 04:00 94 Vapotherm 30.00 70 01/11/21 03:34 90 High Flow N/C 10.00 01/11/21 03:00 71 25 89 Nasal Cannula 5.00 01/11/21 02:00 75 25 93 Nasal Cannula 5.00 01/11/21 01:00 74 01/11/21 01:00 83 21 92 Nasal Cannula 5.00 01/11/21 00:00 68 24 94 Nasal Cannula 5.00 01/10/21 23:00 85 23 122/67 (85) 94 Nasal Cannula 5.00 01/10/21 22:00 88 22 93 Nasal Cannula 5.00 01/10/21 21:54 94 Nasal Cannula 5.00 01/10/21 21:00 75 21 94 Nasal Cannula 5.00 01/10/21 20:57 Nasal Cannula 5.00 01/10/21 20:00 Nasal Cannula 4.00 01/10/21 20:00 83 21 91 Nasal Cannula 4.00 01/10/21 19:48 36.2 01/10/21 19:19 81 22 100/84 (89) 92 Nasal Cannula 4.00 01/10/21 19:00 91 01/10/21 18:20 92 Nasal Cannula 4.00 01/10/21 18:00 89 34 128/62 (84) 93 Nasal Cannula 4.00 01/10/21 17:00 91 13 137/69 (91) 87 Nasal Cannula 4.00 01/10/21 16:00 77 25 108/75 (86) 94 Nasal Cannula 4.00 01/10/21 15:42 36.4 01/10/21 15:00 93 27 121/56 (77) 86 Nasal Cannula 4.00 01/10/21 14:26 94 Nasal Cannula 4.00 01/10/21 14:00 78 21 123/82 (96) 96 Nasal Cannula 4.00 01/10/21 13:00 70 33 110/51 (70) 95 Nasal Cannula 4.00 01/10/21 12:32 78 01/10/21 12:30 36.2 01/10/21 12:00 61 35 108/75 (86) 97 Nasal Cannula 4.00 01/10/21 11:00 55 32 105/69 (81) 86 Nasal Cannula 4.00 01/10/21 10:46 97 Nasal Cannula 5.00 01/10/21 10:00 53 28 100/59 (73) 93 Nasal Cannula 4.00 01/10/21 09:00 85 38 111/62 (78) 97 Nasal Cannula 4.00 01/10/21 08:00 Nasal Cannula 4.00 01/10/21 08:00 72 21 112/62 (79) 100 Nasal Cannula 4.00 01/10/21 07:00 76 39 116/89 (98) 97 Nasal Cannula 4.00 01/10/21 06:36 98 Nasal Cannula 5.00 01/10/21 06:32 60 01/10/21 06:00 70 20 107/78 (88) 100 Nasal Cannula 4.00 01/10/21 05:00 60 19 102/64 (77) 99 Nasal Cannula 4.00 I & O 01/11/21 07:00 Intake Total 1015 ml Output Total 400 ml Balance 615 ml Height & Weight Height: 5'2.00" Weight: 100lbs. 3.0oz. 45.267936ch; 31.72 BMI Method:Stated General Appearance: No Apparent Distress, WD/WN, Moderate Distress (speech a bit fragmented due to SOB) HEENT: PERRL/EOMI, Moist Mucous Membranes Neck: Non Tender, Supple Respiratory: Chest Non Tender, Crackles (bibasilar), Respiratory Distress (using accessory muscles to breathe currently) Cardiovascular: No Edema, Normal Peripheral Pulses, Systolic Murmur, Irregul velma Irregular Capillary Refill: Less Than 3 Seconds Peripheral Pulses: 2+ Dorsalis Pedis (R), 2+ Left Dors-Pedis (L), 2+ Radial Pulses (R), 2+ Radial Pulses (L) Gastrointestinal: normal bowel sounds, non tender, soft; No distended, No guarding, No rebound, No tenderness Extremity: Normal Capillary Refill, Non Tender, No Calf Tenderness, No Pedal Edema Neurologic/Psychiatric: Alert, Oriented x3, No Motor/Sensory Deficits Skin: Normal Color, Warm/Dry Lymphatic: No Adenopathy Results Lab Laboratory Tests 01/09/21 11:10 01/10/21 04:00 01/11/21 03:27 Assessment/Plan Assessment/Plan Acute on chronic respiratory failure -oxygen via vapotherm, currently 30 L and 50% -started at 0400 due to increased SOB -solumedrol 40mg Q6hr -IS Q1hr WA -Encourage cough and deep breathing COPDAE -airduo BID -Duoneb q4hr -Vapotherm, wean as tolerated -solumedrol Pneumonia -blood cultures pending -levofloxacin ordered -legionella and strep pneumo antigen negative -procalcitonin negative yesterday Leukocytosis -WBC up to 14.5 today from 6.5 yesterday -Pt. is getting solumedrol -covered with levaquin -continue to monitor Afib with RVR -diltiazem gtt discontinued, started on po cardiazem -EF 55-65% -cardiology following -lovenox discontinued, started on eliquis Debility -consult PT and OT GI/dvt prophylaxis -protonix EBENEZER ROCA DO 01/11/21 0537: Assessment/Plan Assessment/Plan Acute on chronic respiratory failure -oxygen via vapotherm, currently 30 L and 50% -started at 0400 due to increased SOB -Give Lasix 40mg IV x 1 and check BNP -Repeat PCT -solumedrol 40mg Q6hr -IS Q1hr WA -Encourage cough and deep breathing COPDAE -airduo BID -Duoneb q4hr -Vapotherm, wean as tolerated -solumedrol Pneumonia -blood cultures pending -levofloxacin ordered -legionella and strep pneumo antigen negative -procalcitonin negative yesterday Leukocytosis -WBC up to 14.5 today from 6.5 yesterday -Pt. is getting solumedrol -covered with levaquin -continue to monitor Afib with RVR -diltiazem gtt discontinued, started on po cardiazem -EF 55-65% -cardiology following -lovenox discontinued, started on eliquis Debility -PT and OT GI/dvt prophylaxis -protonix Supervisory-Addendum Brief Verification & Attestation Participated in pt care: history, MDM, physical Personally performed: exam, history, MDM, supervision of care Care discussed with: Medical Student Procedures: n/a Results interpretation: Verified all documentation Verification and Attestation of Medical Student E/M Service A medical student performed and documented this service in my presence. I reviewed and verified all information documented by the medical student and made modifications to such information, when appropriate. I personally performed the physical exam and medical decision making. Ebenezer Roca, January 11, 2021,12:40 SHAHRIAR LEWIS MED STUDENT January 11, 2021 04:05 EBENEZER ROCA DO January 11, 2021 05:37
[2021-01-11] MEDS ORDERED: KCL 20 MEQ TAB (K-DUR) PO ONE ×2 (05:45→08:07)
[2021-01-11] MEDS ORDERED: FUROSEMIDE 40 MG/4 ML INJ (LASIX) IVP ONE (05:45)
[2021-01-11] MEDS: RT--FLUTICASONE/SALMETEROL 113-14 (AIRDUO RespiCLICK) IH SCH ×2 (06:34→22:04)
--- NOTE | 2021-01-11 07:28 | Cardiology Progress Note ---
Subjective Date Seen by Provider: January 11, 2021 Time Seen by Provider: 07:26 Subjective/Events-last exam Patient is laying down in bed, feeling better, maintained on Vapotherm. Review of Systems General: No Chills, No Night Sweats; Fatigue; No Malaise, No Appetite, No Other HEENT: No Head Aches, No Visual Changes, No Eye Pain, No Ear Pain, No Dysphasia, No Sinus Congestion, No Post Nasal Drip, No Sore Throat, No Other Pulmonary: Dyspnea; No Cough, No Pleuritic Chest Pain, No Other Cardiovascular: No: Chest Pain, Palpitations, Orthopnea, Paroxysmal Noc. Dyspnea, Edema, Lt Headedness, Other Focused Exam Lactate Level 01/09/21 11:10: Lactic Acid Level 0.99 Objective-Cardiology Exam Last Set of Vital Signs Vital Signs 01/10/21 01/11/21 01/11/21 19:48 06:00 06:34 Temp 36.2 Pulse 67 Resp 26 B/P (MAP) 124/72 (89) Pulse Ox 92 O2 Delivery Vapotherm O2 Flow Rate 30.00 FiO2 50 Capillary Refill : Less Than 3 Seconds I&O Intake and Output0 01/10/21 23:59 Intake Total 2215 ml Output Total 400 ml Balance 1815 ml Intake Oral 700 ml IV Total 1515 ml Output Urine Total 400 ml # Voids 3 # Bowel Movements 1 General: Alert, Oriented X3, Cooperative HEENT: Atraumatic, PERRLA Neck: Supple, No JVD, No Thyromegaly Lungs: Clear to Auscultation, Normal Air Movement Heart: Normal S1, Normal S2, No Murmurs, Other (Atrial fibrillation) Abdomen: Normal Bowel Sounds, Soft, No Tenderness, No Hepatosplenomegaly, No Masses Extremities: No Clubbing, No Cyanosis, No Edema, Normal Pulses, No Tenderness/Swelling Skin: No Rashes, No Breakdown, No Significant Lesion Neuro: Normal Gait, Normal Speech, Strength at 5/5 X4 Ext, Normal Tone, Sensation Intact Psych/Mental Status: Mental Status NL, Mood NL Results Lab Laboratory Tests 01/11/21 03:27 A/P-Cardiology Admission Diagnosis Atrial Fibrillation Acute on chronic respiratory failure Alcoholism Palpitations with frequent PVCs Assessment/Plan Persistent atrial fibrillation, rate is better controlled, maintained on Eliquis. Cannot tolerate ALBERTO at this point. Continue with rate control COPD, acute exacerbation with acute respiratory failure. Maintained on Vapotherm, managed by primary care physician Pneumonia, receiving antibiotic, managed by primary care physician Alcoholism, patient educated on reduction of alcohol intake Palpitations with frequent PVCs History of left lobectomy STELLA LOPEZ MD January 11, 2021 07:28
--- NOTE | 2021-01-11 08:10 | Diagnostic Imaging Report ---
EXAM: CHEST 1 VIEW, AP/PA ONLY INDICATION: COPD. Pneumonia. COMPARISON: Chest radiograph 01/10/2021. FINDINGS: There has been mild progression of the left pleural effusion, primarily loculated in the lung apex. Probable left upper lobectomy. Overall stable interstitial opacities throughout both lungs. Small right apical pleural effusion. No pneumothorax. No acute osseous findings. IMPRESSION: 1. Overall stable interstitial and airspace opacities throughout both lungs. 2. There has been mild progression of the left pleural effusion, primarily loculated along the left lung apex. Stable small right pleural effusion or thickening. Dictated by: Dictated on workstation # [id number]
[2021-01-11] MEDS: APIXABAN 5 MG (ELIQUIS) TABLET PO SCH ×2 (08:27→20:00)
[2021-01-11] MEDS ORDERED: ENOXAPARIN 60 MG/0.6 ML (LOVENOX) SYR SC SCH (09:00)
--- NOTE | 2021-01-11 10:21 | Physical Therapy Progress Note ---
Therapy Progress Note Hold per RN due to decline in pulmonary status requiring Vapotherm. PT will attempt in CAITLIN Adams PT January 11, 2021 10:21
[2021-01-11] MEDS: LORATADINE (CLARITIN) 10 MG TAB PO SCH (11:18)
[2021-01-11] MEDS: LEVOFLOXACIN 500 MG/D5W 100 ML (PRE-MIX) IV SCH (11:18)
[2021-01-11] MEDS: PANTOPRAZOLE 40 MG (PROTONIX) TAB PO SCH (11:18)
--- NOTE | 2021-01-11 12:53 | Progress Note ---
Subjective Subjective Date Seen by Provider: January 11, 2021 Time Seen by Provider: 12:52 she is now on vapotherm. -palliative care consult placed. Review of Systems General: No Chills, No Night Sweats; Fatigue; No Malaise, No Appetite, No Other HEENT: No Head Aches, No Visual Changes, No Eye Pain, No Ear Pain, No Dysphasia, No Sinus Congestion, No Post Nasal Drip, No Sore Throat, No Other Pulmonary: Dyspnea; No Cough, No Pleuritic Chest Pain, No Other Cardiovascular: No: Chest Pain, Palpitations, Orthopnea, Paroxysmal Noc. Dyspnea, Edema, Lt Headedness, Other Gastrointestinal: No: Nausea, Vomiting Genitourinary: No Dysuria, No Frequency Musculoskeletal: No: neck pain, back pain Neurological: Weakness; No: Numbness All Other Systems Reviewed All Other Systems Reviewed: Yes Objective Exam Vital Signs Vital Signs Date Time Temp Pulse Resp B/P (MAP) Pulse Ox O2 Delivery O2 Flow Rate FiO2 01/11/21 12:45 91 Vapotherm 30.00 50.00 01/11/21 11:00 67 26 116/69 (85) 89 Vapotherm 30.00 70.00 01/11/21 10:39 95 Vapotherm 30.00 80 01/11/21 10:00 80 29 120/75 (90) 87 Vapotherm 30.00 70.00 01/11/21 09:10 91 Vapotherm 30.00 70.00 01/11/21 09:00 97 24 121/82 (95) 94 Vapotherm 30.00 50.00 01/11/21 08:30 92 Vapotherm 30.00 80 01/11/21 08:00 76 24 129/82 (98) 93 Vapotherm 30.00 50.00 01/11/21 07:54 36.0 01/11/21 07:00 77 25 132/73 (92) 86 Vapotherm 30.00 50.00 01/11/21 07:00 84 01/11/21 06:34 92 Vapotherm 30.00 50 01/11/21 06:00 67 26 124/72 (89) 92 Vapotherm 30.00 50.00 01/11/21 05:00 51 24 115/69 (84) 92 Vapotherm 30.00 50.00 01/11/21 04:54 Vapotherm 30.00 50.00 01/11/21 04:40 94 Vapotherm 30.00 50 01/11/21 04:07 Vapotherm 30.00 70.00 01/11/21 04:00 94 Vapotherm 30.00 70 01/11/21 04:00 60 25 106/63 (77) 93 Nasal Cannula 5.00 01/11/21 03:34 90 High Flow N/C 10.00 01/11/21 03:00 71 25 89 Nasal Cannula 5.00 01/11/21 02:00 75 25 93 Nasal Cannula 5.00 01/11/21 01:00 74 01/11/21 01:00 83 21 92 Nasal Cannula 5.00 01/11/21 00:00 68 24 94 Nasal Cannula 5.00 01/10/21 23:00 85 23 122/67 (85) 94 Nasal Cannula 5.00 01/10/21 22:00 88 22 93 Nasal Cannula 5.00 01/10/21 21:54 94 Nasal Cannula 5.00 01/10/21 21:00 75 21 94 Nasal Cannula 5.00 01/10/21 20:57 Nasal Cannula 5.00 01/10/21 20:00 Nasal Cannula 4.00 01/10/21 20:00 83 21 91 Nasal Cannula 4.00 01/10/21 19:48 36.2 01/10/21 19:19 81 22 100/84 (89) 92 Nasal Cannula 4.00 01/10/21 19:00 91 01/10/21 18:20 92 Nasal Cannula 4.00 01/10/21 18:00 89 34 128/62 (84) 93 Nasal Cannula 4.00 01/10/21 17:00 91 13 137/69 (91) 87 Nasal Cannula 4.00 01/10/21 16:00 77 25 108/75 (86) 94 Nasal Cannula 4.00 01/10/21 15:42 36.4 01/10/21 15:00 93 27 121/56 (77) 86 Nasal Cannula 4.00 01/10/21 14:26 94 Nasal Cannula 4.00 01/10/21 14:00 78 21 123/82 (96) 96 Nasal Cannula 4.00 01/10/21 13:00 70 33 110/51 (70) 95 Nasal Cannula 4.00 I & O 01/11/21 07:00 Intake Total 1215 ml Output Total 750 ml Balance 465 ml General Appearance: No Apparent Distress, WD/WN, Moderate Distress (speech a bit fragmented due to SOB) HEENT: PERRL/EOMI, Moist Mucous Membranes Neck: Non Tender, Supple Respiratory: Chest Non Tender, Crackles (bibasilar), Respiratory Distress (using accessory muscles to breathe currently) Cardiovascular: No Edema, Normal Peripheral Pulses, Systolic Murmur, Irregularly Irregular Gastrointestinal: Non Tender, Soft Rectal: Deferred Back: No CVA Tenderness Extremity: Normal Capillary Refill, Non Tender, No Calf Tenderness, No Pedal Edema Neurologic/Psychiatric: Alert, Oriented x3, No Motor/Sensory Deficits Skin: Normal Color, Warm/Dry Lymphatic: No Adenopathy Results Lab Laboratory Tests 01/11/21 03:27: White Blood Count 14.5H, Red Blood Count 3.89, Hemoglobin 12.3, Hematocrit 39, Mean Corpuscular Volume 99, Mean Corpuscular Hemoglobin 32, Mean Corpuscular Hemoglobin Concent 32, Red Cell Distribution Width 13.8, Platelet Count 243, Mean Platelet Volume 9.3, Immature Granulocyte % (Auto) 1, Neutrophils (%) (Auto) 94H, Lymphocytes (%) (Auto) 2L, Monocytes (%) (Auto) 4, Eosinophils (%) (Auto) 0, Basophils (%) (Auto) 0, Neutrophils # (Auto) 13.6H, Lymphocytes # (Auto) 0.3L, Monocytes # (Auto) 0.5, Eosinophils # (Auto) 0.0, Basophils # (Auto) 0.0, Immature Granulocyte # (Auto) 0.1, Sodium Level 138, Potassium Level 4.2, Chloride Level 103, Carbon Dioxide Level 24, Anion Gap 11, Blood Urea Nitrogen 9, Creatinine 0.61, Estimat Glomerular Filtration Rate > 60, BUN/Creatinine Ratio 15, Glucose Level 161H, Calcium Level 8.5, Phosphorus Level 2.7, Magnesium Level 2.3, B-Type Natriuretic Peptide 301.3H 01/11/21 03:47: Procalcitonin 0.03 Microbiology 01/09/21 MRSA Screen - Final, Complete MRSA not isolated 01/09/21 Blood Culture - Preliminary, Resulted No growth Assessment/Plan Assessment/Plan Admission Dx acute on chronic respiratory failure afib with rvr Assessment and Plan 01/09/21- admitted for worsening respiratory failure- went into afib with rvr. -diltiazem gtts, therapeutic lovenox -cardiology consulted. -RT consulted, pulm consulted. -on steroids, levoquin to cover pneumonia. 01/10/21- sodium level normal with IVF. -strep pne, legionella antigen negative. -STOPPED lovenox 80mg BID because she does not weight 78Kg- (she received 2 do ses) -she weighs about 100pounds- ~45kg- changed to 45mg BID to start tomorrow. -monitor for any bleeding. 01/11/21- now on eliquis instead of lovenox. -palliative care consult placed. Disp: prognosis guarded due to her respiratory status. Problems: (1) Atrial fibrillation with RVR (2) Acute and chronic respiratory failure with hypoxia (3) COPD without exacerbation (4) Pneumonia (5) Hyponatremia Assessment & Plan: partially due to her 750ml of wine per day. -monitor Admission Dx acute on chronic respiratory failure afib with rvr Clinical Quality Measures Admission Status Admission Dx acute on chronic respiratory failure afib with rvr SLICK DE SANTIAGO MD January 11, 2021 12:53
--- NOTE | 2021-01-11 16:00 | Occupational Ther Daily Note ---
OT Current Status-Daily Note Subjective No pain reported. Appearance Pt. in bed. Agrees to work with OT. Mental Status/Objective Patient Orientation: Person, Place, Time, Situation ADL-Treatment Therapy Code Descriptions/Definitions Functional [place] Measure: 0=Not Assessed/NA 4=Minimal Assistance 1=Total Assistance 5=Supervision or Setup 2=Maximal Assistance 6=Modified Jewell 3=Moderate Assistance 7=Complete IndependenceSCALE: Activities may be completed with or without assistive devices. 2-Abaukkuerb-twogadi completes the activity by him/herself with no assistance from a helper. 5-Set-up or Clean-up Assistance-helper sets up or cleans up; patient completes activity. [place] assists only prior to or following the activity. 4-Supervision or Touching Assistance-helper provides verbal cues and/or touching/steadying and/or contact guard assistance as patient completes activity. Assistance may be provided throughout the activity or intermittently. 3-Partial/Moderate Assistance-helper does LESS THAN HALF the effort. [place] lifts, holds or supports trunk or limbs, but provides less than half the effort. 2-Substantial/Maximal Assistance-helper does MORE THAN HALF the effort. [place] lifts or holds trunk or limbs and provides more than half the effort. 9-Drtpqslce-mnqoyw does ALL the effort. Patient does none of the effort to complete the activity. Or, the assistance of 2 or more helpers is required for the patient to complete the activity. If activity was not attempted, code reason: 7-Patient Refused. 9-Not Applicable-not attempted and the patient did not perform the activity before the current illness, exacerbation or injury. 10-Not Attempted due to Environmental Limitations-(lack of equipment, weather restraints, etc.). 88-Not Attempted due to Medical Conditions or Safety Concerns. Shower/Bathe Self (QC): 4 (SBA seated on EOB) On/Off Footwear: 4 (SBA to doff/don slipper socks.) Other Treatment Pt. agrees to work with OT EOB. Transferred supine-sit with SBA. Completed sponge bath with SBA on EOB. Tolerated well with brief rest break. Transferred back to bed with SBA. All needs met. Education OT Patient Education: Correct positioning, Modified ADL techniques, Progress toward Goal/Update tx plan, Purpose of tx/functional activities, Reviewed precautions, Rehab process, Transfer techniques Teaching Recipient: Patient Teaching Methods: Demonstration, Discussion Response to Teaching: Verbalize Understanding, Return Demonstration OT Engine Cleaner Goals Engine Cleaner Goals Time Frame: Jan 24, 2021 Eating (QC): 6 Oral Hygiene (QC): 6 Toileting Hygiene (QC): 6 Shower/Bathe Self (QC): 4 Upper Body Dressing (QC): 6 Lower Body Dressing (QC): 6 On/Off Footwear (QC): 6 Additional Goals: 1-Demonstrate ADL Tasks, 2-Verbalize Understanding, 3- ImproveStrength/Ambrosio 1=Demonstrate adherence to instructed precautions during ADL tasks. 2=Patient will verbalize/demonstrate understanding of assistive devices/modifications for ADL. 3=Patient will improve strength/tolerance for activity to enable patient to perform ADL's. OT Education/Plan Problem List/Assessment Assessment: Decreased Activ Tolerance, Impaired I ADL's, Impaired Self-Care Skills Discharge Recommendations Plan/Recommendations: Continue POC Treatment Plan/Plan of Care Treatment,Training & Education: Yes Patient would benefit from OT for education, treatment and training to promote independence in ADL's, mobility, safety and/or upper extremity function for ADL's. Plan of Care: ADL Retraining, Functional Mobility, UE Funct Exercise/Act Treatment Duration: Jan 24, 2021 Frequency: 5 times per week Estimated Hrs Per Day: .25 hour per day Agreement: Yes Rehab Potential: Fair Time/GCodes Start Time: 09:30 Stop Time: 09:50 Total Time Billed (hr/min): 20 Billed Treatment Time 1, ADL MIREILLE CLEVELAND OT January 11, 2021 16:00
[2021-01-11] MEDS: MONTELUKAST 10 MG (SINGULAIR) TAB PO SCH (20:00)
[2021-01-12] VITALS (23 sets, daily range): BP systolic 113–147; BP diastolic 60–96
[2021-01-12] MEDS: RT-ALBUTEROL/IPRATROPIUM 3 ML (DUONEB) VIAL IH SCH ×6 (02:19→22:26)
[2021-01-12 03:51] LABS: BASOPHILS % (AUTO) 0 % (0-10); EOSINOPHILS % (AUTO) 0 % (0-10); HEMATOCRIT 39 % (35-52); HEMOGLOBIN 12.3 g/dL (11.5-16.0); LYMPHOCYTES # (AUTO) 0.2 10^3/uL (1.0-4.0); LYMPHOCYTES % (AUTO) 2 % (12-44); MEAN CORPUSCULAR HEMOGLOBIN 32 pg (25-34); MEAN CORPUSCULAR HGB CONC 32 g/dL (32-36); MEAN CORPUSCULAR VOLUME 100 fL (80-99); MEAN PLATELET VOLUME 9.8 fL (9.0-12.2); MONOCYTES # (AUTO) 0.2 10^3/uL (0.0-1.0); MONOCYTES % (AUTO) 2 % (0-12); NEUTROPHILS # (AUTO) 8.4 10^3/uL (1.8-7.8); NEUTROPHILS % (AUTO) 95 % (42-75); PLATELET COUNT 212 10^3/uL (130-400); WHITE BLOOD COUNT 8.8 10^3/uL (4.3-11.0)
[2021-01-12 04:06] LABS: CHLORIDE 99 MMOL/L (98-107); POTASSIUM 3.9 MMOL/L (3.6-5.0); SODIUM 136 MMOL/L (135-145)
[2021-01-12 04:07] LABS: CALCIUM 8.8 MG/DL (8.5-10.1); GLUCOSE 198 MG/DL (70-105)
[2021-01-12 04:09] LABS: CARBON DIOXIDE 26 MMOL/L (21-32)
[2021-01-12 04:11] LABS: CREATININE SERUM 0.61 MG/DL (0.60-1.30); GFR ESTIMATED > 60; PHOSPHORUS 2.5 MG/DL (2.3-4.7)
[2021-01-12 04:12] LABS: BUN/CREATININE RATIO 30
[2021-01-12 04:14] LABS: MAGNESIUM 2.3 MG/DL (1.6-2.4)
[2021-01-12] MEDS: methylPREDNISolone 40 MG/ML (Solu-MEDROL) VIAL IV SCH ×4 (06:33→22:09)
[2021-01-12] MEDS: RT--FLUTICASONE/SALMETEROL 113-14 (AIRDUO RespiCLICK) IH SCH ×2 (06:35→22:26)
--- NOTE | 2021-01-12 08:00 | Diagnostic Imaging Report ---
Portable erect AP chest at 2:49 Indication: Respiratory distress The heart is stable in size when compared to the prior exam of 01/11/2021. The diffuse interstitial infiltrates involving the right lung and to a lesser extent the left lung base seen previously are again evident and no different. The abnormal density partially obscuring the left apex seen previously is unchanged as well. The mediastinum is not widened. The osseous structures are intact. Impression: Stable chest. There has been no adverse change since the prior exam. Dictated by: Dictated on workstation # [id number]
[2021-01-12] MEDS: FUROSEMIDE 40 MG/4 ML INJ (LASIX) IVP SCH (08:20)
[2021-01-12] MEDS: meTOprolol TARTRATE 25 MG (LOPRESSOR) TABLET PO SCH ×2 (08:20→20:19)
[2021-01-12] MEDS: APIXABAN 5 MG (ELIQUIS) TABLET PO SCH ×2 (08:20→20:18)
--- NOTE | 2021-01-12 08:56 | Cardiology Progress Note ---
Subjective Date Seen by Provider: January 12, 2021 Time Seen by Provider: 08:55 Subjective/Events-last exam Patient was seen at bedside, laying down in bed, on Vapotherm, feeling better Review of Systems General: No Chills, No Night Sweats; Fatigue, Malaise; No Appetite, No Other HEENT: No Head Aches, No Visual Changes, No Eye Pain, No Ear Pain, No Dysphasia, No Sinus Congestion, No Post Nasal Drip, No Sore Throat, No Other Pulmonary: Dyspnea; No Cough, No Pleuritic Chest Pain, No Other Cardiovascular: No: Chest Pain, Palpitations, Orthopnea, Paroxysmal Noc. Dyspnea, Edema, Lt Headedness, Other Focused Exam Lactate Level 01/09/21 11:10: Lactic Acid Level 0.99 Objective-Cardiology Exam Last Set of Vital Signs Vital Signs 01/11/21 01/12/21 01/12/21 19:13 06:31 08:00 Temp 36.2 Pulse 92 Resp 16 B/P (MAP) 128/69 (88) Pulse Ox 93 O2 Delivery Vapotherm O2 Flow Rate 30.00 50.00 FiO2 50 Capillary Refill : Less Than 3 Seconds I&O Intake and Output 01/12/21 00:00 Intake Total 1200 ml Output Total 2075 ml Balance -875 ml Intake Oral 1200 ml Output Urine Total 2075 ml General: Alert, Oriented X3, Cooperative HEENT: Atraumatic, PERRLA Neck: Supple, No JVD, No Thyromegaly Lungs: Normal Air Movement, Other (Bilateral rhonchi) Heart: Normal S1, Normal S2, No Murmurs, Other (Atrial fibrillation) Abdomen: Normal Bowel Sounds, Soft, No Tenderness, No Hepatosplenomegaly, No Masses Extremities: No Clubbing, No Cyanosis, No Edema, Normal Pulses, No Te nderness/Swelling Skin: No Rashes, No Breakdown, No Significant Lesion Neuro: Normal Gait, Normal Speech, Strength at 5/5 X4 Ext, Normal Tone, Sensation Intact Psych/Mental Status: Mental Status NL, Mood NL Results Lab Laboratory Tests 01/12/21 03:22 A/P-Cardiology Admission Diagnosis Atrial Fibrillation Acute on chronic respiratory failure Alcoholism Palpitations with frequent PVCs Assessment/Plan Persistent atrial fibrillation, rate is better controlled, maintained on Eliquis. Cannot tolerate ALBERTO at this point. Continue with rate control COPD, acute exacerbation with acute respiratory failure. Maintained on Vapotherm, managed by primary care physician Pneumonia, receiving antibiotic, managed by primary care physician Alcoholism, patient educated on reduction of alcohol intake Palpitations with frequent PVCs History of left lobectomy STELLA LOPEZ MD January 12, 2021 08:56
--- NOTE | 2021-01-12 09:57 | Pulmonary Progress Note ---
Subjective Date Seen by a Provider: January 12, 2021 Time Seen by a Provider: 09:20 Sepsis Event Evaluation Height, Weight, BMI Height: 5'2.00" Weight: 100lbs. 3.0oz. 45.247161ht; 31.72 BMI Method:Stated Focused Exam Lactate Level 01/09/21 11:10: Lactic Acid Level 0.99 Exam Exam Vital Signs Date Time Temp Pulse Resp B/P (MAP) Pulse Ox O2 Delivery O2 Flow Rate FiO2 01/12/21 08:00 92 16 128/69 (88) 93 Vapotherm 30.00 50.00 01/12/21 07:00 86 01/12/21 07:00 85 26 131/62 (85) 94 Vapotherm 30.00 50.00 01/12/21 06:31 94 Vapotherm 30.00 50 01/12/21 06:00 88 25 133/65 (87) 95 Vapotherm 30.00 50.00 01/12/21 05:00 87 24 132/67 (88) 95 Vapotherm 30.00 50.00 01/12/21 04:00 84 25 119/63 (81) 93 Vapotherm 30.00 50.00 01/12/21 03:00 92 27 127/77 (94) 92 Vapotherm 30.00 50.00 01/12/21 02:20 94 Vapotherm 30.00 50 01/12/21 02:00 75 24 113/61 (78) 93 Vapotherm 30.00 50.00 01/12/21 01:00 90 01/12/21 01:00 85 20 128/73 (91) 92 Vapotherm 30.00 50.00 01/12/21 00:00 84 23 120/66 (84) 92 Vapotherm 30.00 50.00 01/11/21 23:00 82 28 127/68 (87) 90 Vapotherm 30.00 50.00 01/11/21 22:04 95 Vapotherm 30.00 50 01/11/21 22:00 71 22 113/62 (79) 94 Vapotherm 30.00 50.00 01/11/21 21:00 80 28 113/62 (79) 95 Vapotherm 30.00 50.00 01/11/21 20:00 93 Vapotherm 30.00 50 01/11/21 20:00 84 26 112/68 (83) 91 Vapotherm 30.00 50.00 01/11/21 19:13 36.2 93 24 132/63 (86) 92 Vapotherm 30.00 50.00 01/11/21 19:00 98 01/11/21 19:00 98 22 132/63 (86) 92 Vapotherm 30.00 50.00 01/11/21 18:17 89 Vapotherm 30.00 50 01/11/21 18:00 80 29 131/78 (95) 89 Vapotherm 30.00 50.00 01/11/21 17:00 78 34 128/77 (94) 93 Vapotherm 30.00 50.00 01/11/21 16:00 80 26 120/74 (89) 94 Vapotherm 30.00 50.00 01/11/21 15:00 80 32 118/69 (85) 96 Vapotherm 30.00 50.00 01/11/21 14:29 96 Vapotherm 30.00 70 01/11/21 14:00 75 33 112/79 (90) 84 Vapotherm 30.00 50.00 01/11/21 13:02 90 Vapotherm 30.00 40.00 01/11/21 13:00 75 26 125/79 (94) 92 Vapotherm 30.00 50.00 01/11/21 13:00 76 01/11/21 12:45 91 Vapotherm 30.00 50.00 01/11/21 12:00 58 23 109/63 (78) 93 Vapotherm 30.00 70.00 01/11/21 11:00 67 26 116/69 (85) 89 Vapotherm 30.00 70.00 01/11/21 10:39 95 Vapotherm 30.00 80 01/11/21 10:00 80 29 120/75 (90) 87 Vapotherm 30.00 70.00 I & O 01/12/21 07:00 Intake Total 1300 ml Output Total 2000 ml Balance -700 ml Height & Weight Height: 5'2.00" Weight: 100lbs. 3.0oz. 45.297794te; 31.72 BMI Method:Stated General Appearance: No Apparent Distress, WD/WN, Moderate Distress (speech a bit fragmented due to SOB) HEENT: PERRL/EOMI, Moist Mucous Membranes Neck: Non Tender, Supple Respiratory: Chest Non Tender, Crackles (bibasilar), Respiratory Distress (using accessory muscles to breathe currently) Cardiovascular: No Edema, Normal Peripheral Pulses, Systolic Murmur, Irregularly Irregular Capillary Refill: Less Than 3 Seconds Peripheral Pulses: 2+ Dorsalis Pedis (R), 2+ Left Dors-Pedis (L), 2+ Radial Pulses (R), 2+ Radial Pulses (L) Gastrointestinal: normal bowel sounds, non tender, soft; No distended, No guarding, No rebound, No tenderness Extremity: Normal Capillary Refill, Non Tender, No Calf Tenderness, No Pedal Edema Neurologic/Psychiatric: Alert, Oriented x3, No Motor/Sensory Deficits Skin: Normal Color, Warm/Dry Lymphatic: No Adenopathy Results Lab Laboratory Tests 01/11/21 03:27 01/12/21 03:22 Assessment/Plan Assessment/Plan Available chart/ vitals / labs / Images reviewed Video assessment done using teleICU camera Discussed with RN Events overnight : none Afebrile hemodynamically stable, no pressors A/P Acute on chronic respiratory failure -oxygen via vapotherm, 01/11 30 L and 50% - , 01/12 - 25L 50% - Lasix 40mg IV x 1 - neg balnce 800 ml - repeat today -solumedrol 40mg Q6hr and nebs COPDAE- severe emphysema, regional bronchiectasis -airduo BID, singular -Duoneb q4hr -solumedrol 40 q 6 / nebs Pneumonia -blood cultures - 01/07- neg , 01/11 - pending -levofloxacin ordered for PSA in urine to cont - -legionella and strep pneumo antigen negative -procalcitonin negative 01/10 and 01/11 Afib with RVR -diltiazem gtt discontinued, started on po cardiazem -EF 55-65% -cardiology following, Cannot tolerate ALBERTO at this poin- rate control as goal - on eliquis h/o persistent PTX on RIGHT s/p LEFT LLL lobectomy History of left lobectomy Discussed intubation and ventilatory management if needed and patient would like to discuss possible hospice care. campbell in place - desats with moving - readress tomorrow nutrition- takeing po Pt - desats with moving , PT consulted anxiety - doing well Plans in collaboration with bedside consultants and IM MDs. Discussed with RN to reach out if any questions or concerns Critical Care: Critically Ill Patient Time spent with patient (mins): 20 SANIYA CARDENAS MD January 12, 2021 09:57
[2021-01-12] MEDS: LEVOFLOXACIN 500 MG/D5W 100 ML (PRE-MIX) IV SCH (11:35)
[2021-01-12] MEDS: LORATADINE (CLARITIN) 10 MG TAB PO SCH (11:35)
[2021-01-12] MEDS: PANTOPRAZOLE 40 MG (PROTONIX) TAB PO SCH (11:35)
--- NOTE | 2021-01-12 11:43 | Physical Therapy Daily Note ---
PT Daily Note-Current Subjective Patient sitting in chair and agrees to PT. Currently on vapotherm Mental Status Patient Orientation: Normal For Age Attachments: Oxygen, [place] Catheter Transfers SCALE: Activities may be completed with or without assistive devices. 6-Gfupfwwnbo-parzdic completes the activity by him/herself with no assistance from a helper. 5-Set-up or Clean-up Assistance-helper sets up or cleans up; patient completes activity. [place] assists only prior to or following the activity. 4-Supervision or Touching Assistance-helper provides verbal cues and/or touching/steadying and/or contact guard assistance as patient completes activity. Assistance may be provided throughout the activity or intermittently. 3-Partial/Moderate Assistance-helper does LESS THAN HALF the effort. [place] lifts, holds or supports trunk or limbs, but provides less than half the effort. 2-Substantial/Maximal Assistance-helper does MORE THAN HALF the effort. [place] lifts or holds trunk or limbs and provides more than half the effort. 6-Swnrbizbt-hmwoen does ALL the effort. Patient does none of the effort to complete the activity. Or, the assistance of 2 or more helpers is required for the patient to complete the activity. If activity was not attempted, code reason: 7-Patient Refused. 9-Not Applicable-not attempted and the patient did not perform the activity before the current illness, exacerbation or injury. 10-Not Attempted due to Environmental Limitations-(lack of equipment, weather restraints, etc.). 88-Not Attempted due to Medical Conditions or Safety Concerns. Sit to Stand (QC): 4 (SBA) Gait Training Distance: 10' x 4 Walk 10 feet (QC): 4 (CGA) Gait Assistive Device: None functional gait sequence with noted decrease in SAO2 Exercises Standing: Marching Standing Reps: 12 Assessment Patient SAO2 decreases to 77% with activity with long recovery (~5 minutes) to 90%. Patient remains up in recliner. Will increase activity as tolerated by patient. PT Account Management Assistant Goals Account Management Assistant Goals PT Account Management Assistant Goals Time Frame: Jan 17, 2021 Roll Left & Right (QC): 6 Sit to Lying (QC): 6 Lying-Sitting on Side/Bed(QC): 6 Sit to Stand (QC): 6 Chair/Imy-vg-Cmxqf Xfer(QC): 6 Walk 10 feet (QC): 6 Walk 50ft with 2 Turns (QC): 4 PT Plan Treatment/Plan Treatment Plan: Continue Plan of Care Treatment Plan: Education, Functional Activity Ambrosio, Functional Strength, Gait, Safety, Therapeutic Exercise, Transfers Treatment Duration: Jan 17, 2021 Frequency: 6 times per week Estimated Hrs Per Day: .25 hour per day Patient and/or Family Agrees t: Yes Time/GCodes Time In: 1115 Time Out: 1126 Total Billed Treatment Time: 11 Total Billed Treatment 1 visit EX 11 min CAITLIN SAM PT January 12, 2021 11:43
--- NOTE | 2021-01-12 11:50 | Occupational Ther Daily Note ---
OT Current Status-Daily Note Subjective Pt AxO, upright in bed. RT present during most of session, pt denies pain, agrees to tx. Mental Status/Objective Patient Orientation: Person, Place, Situation, Normal For Age Attachments: Arriaga Catheter, Oxygen (vapotherm), Telemetry ADL-Treatment Therapy Code Descriptions/Definitions Functional [place] Measure: 0=Not Assessed/NA 4=Minimal Assistance 1=Total Assistance 5=Supervision or Setup 2=Maximal Assistance 6=Modified [place] 3=Moderate Assistance 7=Complete IndependenceSCALE: Activities may be completed with or without assistive devices. 6-Qwodqggkvs-oulsrut completes the activity by him/herself with no assistance from a helper. 5-Set-up or Clean-up Assistance-helper sets up or cleans up; patient completes activity. [place] assists only prior to or following the activity. 4-Supervision or Touching Assistance-helper provides verbal cues and/or touching/steadying and/or contact guard assistance as patient completes activity. Assistance may be provided throughout the activity or intermittently. 3-Partial/Moderate Assistance-helper does LESS THAN HALF the effort. [place] lifts, holds or supports trunk or limbs, but provides less than half the effort. 2-Substantial/Maximal Assistance-helper does MORE THAN HALF the effort. [place] lifts or holds trunk or limbs and provides more than half the effort. 1-Karqmzciu-awqdxk does ALL the effort. Patient does none of the effort to complete the activity. Or, the assistance of 2 or more helpers is required for the patient to complete the activity. If activity was not attempted, code reason: 7-Patient Refused. 9-Not Applicable-not attempted and the patient did not perform the activity b efore the current illness, exacerbation or injury. 10-Not Attempted due to Environmental Limitations-(lack of equipment, weather restraints, etc.). 88-Not Attempted due to Medical Conditions or Safety Concerns. Eating (QC): 6 Oral Hygiene (QC): 6 (per pt, pt will complete on own when pt's daughter present.) On/Off Footwear: 6 (SBA and cues for RB due to 02 levels, however, completes IND.) Other Treatment Sit to scooting EOB with SBA. Pt's 02 monitored. Pt ~high 80's upon EOB, recovers. RT increases flow of vapotherm. Pt ambulates to chair with CGA, no use of AE. Pt's 02 dropped, then recovers quickly. Pt sits in recliner, desires donning socks. Pt given extra pair of socks, dons with increased time due to need of RB due to O2. Pt completes UE ex (5 reps at a time, 02 monitored and pt encouraged to take deep breath each rep) with shoulder flexion bilaterally and back flies. Pt's 02 drops intermittently but maintain's >89% during exercises. Pt is discouraged to complete UE ex without RT/ therapy present. Pt's 02 decreased from 100% flow to 50% flow as RT had instructed. 02 monitored and pt maintains >90% at rest. Left in chair with all needs met, call light in reach. Education OT Patient Education: Correct positioning, Exercise program, Home exercise program, Purpose of tx/functional activities, Safety issues, Transfer techniques Teaching Recipient: Patient Teaching Methods: Demonstration, Discussion Response to Teaching: Verbalize Understanding, Return Demonstration OT Modular Home Crew Member Goals Modular Home Crew Member Goals Time Frame: Jan 24, 2021 Eating (QC): 6 Oral Hygiene (QC): 6 Toileting Hygiene (QC): 6 Shower/Bathe Self (QC): 4 Upper Body Dressing (QC): 6 Lower Body Dressing (QC): 6 On/Off Footwear (QC): 6 Additional Goals: 1-Demonstrate ADL Tasks, 2-Verbalize Understanding, 3- ImproveStrength/Ambrosio 1=Demonstrate adherence to instructed precautions during ADL tasks. 2=Patient will verbalize/demonstrate understanding of assistive devices/modifications for ADL. 3=Patient will improve strength/tolerance for activity to enable patient to perform ADL's. OT Education/Plan Problem List/Assessment Assessment: Decreased Activ Tolerance, Decreased UE Strength, Dependent Transfers, Impaired Funct Balance, Impaired I ADL's, Impaired Self-Care Skills Discharge Recommendations Plan/Recommendations: Continue POC Therapy Discharge Recommendati: Home & Family, Post Acute OT Treatment Plan/Plan of Care Treatment,Training & Education: Yes Patient would benefit from OT for education, treatment and training to promote independence in ADL's, mobility, safety and/or upper extremity function for ADL's. Plan of Care: ADL Retraining, Functional Mobility, UE Funct Exercise/Act Treatment Duration: Jan 24, 2021 Frequency: 5 times per week Estimated Hrs Per Day: .25 hour per day Agreement: Yes Rehab Potential: Fair Time/GCodes Start Time: 10:40 Stop Time: 11:04 Total Time Billed (hr/min): 24 Billed Treatment Time 1, EX 2 (24) SHEKHAR POWERS OTR January 12, 2021 11:50
--- NOTE | 2021-01-12 14:47 | Progress Note ---
Subjective Subjective Date Seen by Provider: January 12, 2021 Time Seen by Provider: 14:45 Patient reports she is feeling better. Denies any withdrawal symptoms. She would like to have the catheter removed. 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 Review of Systems General: No Chills, No Night Sweats; Fatigue, Malaise; No Appetite, No Other HEENT: No Head Aches, No Visual Changes, No Eye Pain, No Ear Pain, No Dysphasia, No Sinus Congestion, No Post Nasal Drip, No Sore Throat, No Other Pulmonary: Dyspnea; No Cough, No Pleuritic Chest Pain, No Other Cardiovascular: No: Chest Pain, Palpitations, Orthopnea, Paroxysmal Noc. Dyspnea, Edema, Lt Headedness, Other Gastrointestinal: No: Nausea, Vomiting Genitourinary: No Dysuria, No Frequency Musculoskeletal: No: neck pain, back pain Neurological: Weakness; No: Numbness All Other Systems Reviewed All Other Systems Reviewed: Yes Objective Exam Vital Signs Vital Signs Date Time Temp Pulse Resp B/P (MAP) Pulse Ox O2 Delivery O2 Flow Rate FiO2 01/12/21 14:43 95 Vapotherm 20.00 50 01/12/21 14:00 93 18 132/94 (107) 90 Vapotherm 30.00 50.00 01/12/21 13:00 93 25 147/83 (104) 93 Vapotherm 30.00 50.00 01/12/21 12:50 94 01/12/21 12:00 91 20 128/72 (90) 90 Vapotherm 30.00 50.00 01/12/21 11:34 36.0 01/12/21 11:00 86 27 129/74 (92) 94 Vapotherm 30.00 50.00 01/12/21 10:34 94 Vapotherm 25.00 50 01/12/21 10:00 71 25 120/64 (82) 93 Vapotherm 30.00 50.00 01/12/21 09:00 74 25 115/60 (78) 95 Vapotherm 30.00 50.00 01/12/21 08:44 94 Vapotherm 25.00 50 01/12/21 08:00 92 16 128/69 (88) 93 Vapotherm 30.00 50.00 01/12/21 07:00 86 01/12/21 07:00 85 26 131/62 (85) 94 Vapotherm 30.00 50.00 01/12/21 06:31 94 Vapotherm 30.00 50 01/12/21 06:00 88 25 133/65 (87) 95 Vapotherm 30.00 50.00 01/12/21 05:00 87 24 132/67 (88) 95 Vapotherm 30.00 50.00 01/12/21 04:00 84 25 119/63 (81) 93 Vapotherm 30.00 50.00 01/12/21 03:00 92 27 127/77 (94) 92 Vapotherm 30.00 50.00 01/12/21 02:20 94 Vapotherm 30.00 50 01/12/21 02:00 75 24 113/61 (78) 93 Vapotherm 30.00 50.00 01/12/21 01:00 90 01/12/21 01:00 85 20 128/73 (91) 92 Vapotherm 30.00 50.00 01/12/21 00:00 84 23 120/66 (84) 92 Vapotherm 30.00 50.00 01/11/21 23:00 82 28 127/68 (87) 90 Vapotherm 30.00 50.00 01/11/21 22:04 95 Vapotherm 30.00 50 01/11/21 22:00 71 22 113/62 (79) 94 Vapotherm 30.00 50.00 01/11/21 21:00 80 28 113/62 (79) 95 Vapotherm 30.00 50.00 01/11/21 20:00 93 Vapotherm 30.00 50 01/11/21 20:00 84 26 112/68 (83) 91 Vapotherm 30.00 50.00 01/11/21 19:13 36.2 93 24 132/63 (86) 92 Vapotherm 30.00 50.00 01/11/21 19:00 98 01/11/21 19:00 98 22 132/63 (86) 92 Vapotherm 30.00 50.00 01/11/21 18:17 89 Vapotherm 30.00 50 01/11/21 18:00 80 29 131/78 (95) 89 Vapotherm 30.00 50.00 01/11/21 17:00 78 34 128/77 (94) 93 Vapotherm 30.00 50.00 01/11/21 16:00 80 26 120/74 (89) 94 Vapotherm 30.00 50.00 01/11/21 15:00 80 32 118/69 (85) 96 Vapotherm 30.00 50.00 I & O 01/12/21 07:00 Intake Total 1300 ml Output Total 2000 ml Balance -700 ml General Appearance: No Apparent Distress, WD/WN, Moderate Distress (speech a bit fragmented due to SOB) HEENT: PERRL/EOMI, Moist Mucous Membranes Neck: Non Tender, Supple Respiratory: Chest Non Tender, Crackles (bibasilar), Respiratory Distress (using accessory muscles to breathe currently) Cardiovascular: No Edema, Normal Peripheral Pulses, Systolic Murmur, Irregularly Irregular Gastrointestinal: Non Tender, Soft Rectal: Deferred Back: No CVA Tenderness Extremity: Normal Capillary Refill, Non Tender, No Calf Tenderness, No Pedal Edema Neurologic/Psychiatric: Alert, Oriented x3, No Motor/Sensory Deficits Skin: Normal Color, Warm/Dry Lymphatic: No Adenopathy Results Lab Laboratory Tests 01/12/21 03:22: White Blood Count 8.8, Red Blood Count 3.88, Hemoglobin 12.3, Hematocrit 39, Mean Corpuscular Volume 100H, Mean Corpuscular Hemoglobin 32, Mean Corpuscular Hemoglobin Concent 32, Red Cell Distribution Width 14.0, Platelet Count 212, Mean Platelet Volume 9.8, Immature Granulocyte % (Auto) 1, Neutrophils (%) (Auto) 95H, Lymphocytes (%) (Auto) 2L, Monocytes (%) (Auto) 2, Eosinophils (%) (Auto) 0, Basophils (%) (Auto) 0, Neutrophils # (Auto) 8.4H, Lymphocytes # (Auto) 0.2L, Monocytes # (Auto) 0.2, Eosinophils # (Auto) 0.0, Basophils # (Auto) 0.0, Immature Granulocyte # (Auto) 0.1, Sodium Level 136, Potassium Level 3.9, Chloride Level 99, Carbon Dioxide Level 26, Anion Gap 11, Blood Urea Nitrogen 18, Creatinine 0.61, Estimat Glomerular Filtration Rate > 60, BUN/Creatinine Ratio 30, Glucose Level 198H, Calcium Level 8.8, Phosphorus Level 2.5, Magnesium Level 2.3 Microbiology 01/11/21 Gram Stain - Final, Resulted 01/11/21 Sputum Culture, Resulted Pending 01/09/21 Blood Culture - Preliminary, Resulted No growth Assessment/Plan Assessment/Plan Admission Dx acute on chronic respiratory failure afib with rvr Assessment and Plan 01/09/21- admitted for worsening respiratory failure- went into afib with rvr. -diltiazem gtts, therapeutic lovenox -cardiology consulted. -RT consulted, pulm consulted. -on steroids, levoquin to cover pneumonia. 01/10/21- sodium level normal with IVF. -strep pne, legionella antigen negative. -STOPPED lovenox 80mg BID because she does not weight 78Kg- (she received 2 doses) -she weighs about 100pounds- ~45kg- changed to 45mg BID to start tomorrow. -monitor for any bleeding. 01/11/21- now on eliquis instead of lovenox. -palliative care consult placed. 01/12/21- patient is not interested in hospice at this time; she is motivated and is started to feel better- we will remove campbell catheter. monitor UOP. RT to work on titrating down and getting her on 3-4 L NC oxygen. Disp: prognosis guarded due to her respiratory status. Problems: (1) Atrial fibrillation with RVR (2) Acute and chronic respiratory failure with hypoxia (3) COPD without exacerbation (4) Pneumonia (5) Hyponatremia Assessment & Plan: partially due to her 750ml of wine per day. -monitor Admission Dx acute on chronic respiratory failure afib with rvr Clinical Quality Measures Admission Status Admission Dx acute on chronic respiratory failure afib with rvr SLICK DE SANTIAGO MD January 12, 2021 14:47
[2021-01-12] MEDS: MONTELUKAST 10 MG (SINGULAIR) TAB PO SCH (20:18)
[2021-01-12] MEDS: LORazepam INJ 2 MG/ML (ATIVAN) VIAL IV PRN (20:22)
[2021-01-13] VITALS (16 sets, daily range): BP systolic 111–140; BP diastolic 56–88
[2021-01-13] MEDS: RT-ALBUTEROL/IPRATROPIUM 3 ML (DUONEB) VIAL IH SCH ×5 (02:34→18:58)
[2021-01-13 02:52] LABS: BASOPHILS % (AUTO) 0 % (0-10); EOSINOPHILS % (AUTO) 0 % (0-10); HEMATOCRIT 41 % (35-52); HEMOGLOBIN 13.3 g/dL (11.5-16.0); LYMPHOCYTES # (AUTO) 0.2 10^3/uL (1.0-4.0); LYMPHOCYTES % (AUTO) 3 % (12-44); MEAN CORPUSCULAR HEMOGLOBIN 32 pg (25-34); MEAN CORPUSCULAR HGB CONC 33 g/dL (32-36); MEAN CORPUSCULAR VOLUME 98 fL (80-99); MEAN PLATELET VOLUME 9.5 fL (9.0-12.2); MONOCYTES # (AUTO) 0.2 10^3/uL (0.0-1.0); MONOCYTES % (AUTO) 2 % (0-12); NEUTROPHILS # (AUTO) 8.8 10^3/uL (1.8-7.8); NEUTROPHILS % (AUTO) 95 % (42-75); PLATELET COUNT 210 10^3/uL (130-400); WHITE BLOOD COUNT 9.3 10^3/uL (4.3-11.0)
[2021-01-13 03:09] LABS: CHLORIDE 94 MMOL/L (98-107); POTASSIUM 3.9 MMOL/L (3.6-5.0); SODIUM 134 MMOL/L (135-145)
[2021-01-13 03:11] LABS: GLUCOSE 157 MG/DL (70-105)
[2021-01-13 03:13] LABS: CARBON DIOXIDE 29 MMOL/L (21-32)
[2021-01-13 03:15] LABS: CREATININE SERUM 0.55 MG/DL (0.60-1.30); GFR ESTIMATED > 60; PHOSPHORUS 3.3 MG/DL (2.3-4.7)
[2021-01-13 03:16] LABS: BUN/CREATININE RATIO 31
[2021-01-13 03:17] LABS: MAGNESIUM 2.2 MG/DL (1.6-2.4)
[2021-01-13] MEDS: methylPREDNISolone 40 MG/ML (Solu-MEDROL) VIAL IV SCH ×4 (06:02→23:18)
[2021-01-13] MEDS: RT--FLUTICASONE/SALMETEROL 113-14 (AIRDUO RespiCLICK) IH SCH ×2 (07:24→18:59)
[2021-01-13] MEDS: APIXABAN 5 MG (ELIQUIS) TABLET PO SCH ×2 (09:05→20:23)
[2021-01-13] MEDS: FUROSEMIDE 40 MG/4 ML INJ (LASIX) IVP SCH (09:05)
[2021-01-13] MEDS: meTOprolol TARTRATE 25 MG (LOPRESSOR) TABLET PO SCH ×2 (09:05→20:24)
--- NOTE | 2021-01-13 09:35 | Progress Note ---
Progress Note Assessment/Plan Date Seen by Provider: January 13, 2021 Events since last exam video rounds completed 75 y/o with acute exacerbation of COPD and PNA Hx of a fib on apixaban Now stable in ICU PE: pulse: 75 NSR BP: 124/73 O2 sats: 98 appear comfortable sitting up in bed eating breakfast Assessment/Plan 01/09/21- admitted for worsening respiratory failure- went into afib with rvr. -diltiazem gtts, therapeutic lovenox -cardiology consulted. -RT consulted, pulm consulted. -on steroids, levoquin to cover pneumonia. 01/10/21- sodium level normal with IVF. -strep pne, legionella antigen negative. -STOPPED lovenox 80mg BID because she does not weight 78Kg- (she received 2 doses) -she weighs about 100pounds- ~45kg- changed to 45mg BID to start tomorrow. -monitor for any bleeding. 01/11/21- now on eliquis instead of lovenox. -palliative care consult placed. 01/12/21- patient is not interested in hospice at this time; she is motivated and is started to feel better- we will remove campbell catheter. monitor UOP. RT to work on titrating down and getting her on 3-4 L NC oxygen. Disp: prognosis guarded due to her respiratory status. Vitals Last set of Vitals Signs Vital Signs Date Time Temp Pulse Resp B/P (MAP) Pulse Ox O2 Delivery O2 Flow Rate FiO2 01/13/21 09:00 94 High Flow N/C 10.00 01/13/21 08:00 62 25 130/65 (86) 01/12/21 20:00 50 01/12/21 19:23 36.2 I&O I&O Intake and Output 01/13/21 00:00 Intake Total 1270 ml Output Total 1500 ml Balance -230 ml Intake Oral 1270 ml Output Urine Total 1500 ml Labs Laboratory Tests 01/13/21 02:42: White Blood Count 9.3, Red Blood Count 4.13, Hemoglobin 13.3, Hematocrit 41, Mean Corpuscular Volume 98, Mean Corpuscular Hemoglobin 32, Mean Corpuscular Hemoglobin Concent 33, Red Cell Distribution Width 13.4, Platelet Count 210, Mean Platelet Volume 9.5, Immature Granulocyte % (Auto) 0, Neutrophils (%) (Auto) 95H, Lymphocytes (%) (Auto) 3L, Monocytes (%) (Auto) 2, Eosinophils (%) (Auto) 0, Basophils (%) (Auto) 0, Neutrophils # (Auto) 8.8H, Lymphocytes # (Auto) 0.2L, Monocytes # (Auto) 0.2, Eosinophils # (Auto) 0.0, Basophils # (Auto) 0.0, Immature Granulocyte # (Auto) 0.0 01/13/21 02:43: Sodium Level 134L, Potassium Level 3.9, Chloride Level 94L, Carbon Dioxide Level 29, Anion Gap 11, Blood Urea Nitrogen 17, Creatinine 0.55L, Estimat Glomerular Filtration Rate > 60, BUN/Creatinine Ratio 31, Glucose Level 157H, Calcium Level 9.0, Phosphorus Level 3.3, Magnesium Level 2.2 Microbiology 01/11/21 Gram Stain - Final, Resulted 01/11/21 Sputum Culture - Preliminary, Resulted Usual upper respiratory jordyn 01/09/21 Blood Culture - Preliminary, Resulted No growth Radiology cxr pending Medications Meds on apixaban and levofloxin THERESA HINDS MD January 13, 2021 09:35
--- NOTE | 2021-01-13 09:45 | Diagnostic Imaging Report ---
INDICATION: COPD, pneumonia, followup, dyspnea. TECHNIQUE: Single view chest 3:24 AM. CORRELATION STUDY: 01/12/2021 FINDINGS: Heart size and mediastinum are prominent but unchanged. There is distortion of the left upper lung and suprahilar region with opacity left lung apex, stable. Fibrosis and cavitation about the right lung apex persisting as well. Diffusely prominent interstitial markings throughout both lung best particularly at the right lung base relatively stable. Overlying monitor leads obscure detail. IMPRESSION: 1. Marked chronic change about the lung best again demonstrated. Definitive adverse change not suggested. May be slight improved aeration of the right lung base. Dictated by: Dictated on workstation # [id number]
--- NOTE | 2021-01-13 10:49 | Physical Therapy Daily Note ---
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 Pain Location: No Pain Reported Mental Status Patient Orientation: Normal For Age Attachments: Oxygen, Arriaga Catheter Transfers SCALE: Activities may be completed with or without assistive devices. 0-Frmrweujew-plcsqup completes the activity by him/herself with no assistance from a helper. 5-Set-up or Clean-up Assistance-helper sets up or cleans up; patient completes activity. [place] assists only prior to or following the activity. 4-Supervision or Touching Assistance-helper provides verbal cues and/or touching/steadying and/or contact guard assistance as patient completes activity. Assistance may be provided throughout the activity or intermittently. 3-Partial/Moderate Assistance-helper does LESS THAN HALF the effort. [place] lifts, holds or supports trunk or limbs, but provides less than half the effort. 2-Substantial/Maximal Assistance-helper does MORE THAN HALF the effort. [place] lifts or holds trunk or limbs and provides more than half the effort. 7-Axvjelmzr-aonsao does ALL the effort. Patient does none of the effort to complete the activity. Or, the assistance of 2 or more helpers is required for the patient to complete the activity. If activity was not attempted, code reason: 7-Patient Refused. 9-Not Applicable-not attempted and the patient did not perform the activity before the current illness, exacerbation or injury. 10-Not Attempted due to Environmental Limitations-(lack of equipment, weather restraints, etc.). 88-Not Attempted due to Medical Conditions or Safety Concerns. sup to sit to stand SBA to CGA. Gait Training Does the Patient Walk?: Yes Gait Assistive Device: None pt. ambulated 6 ft to chair CGA to SBA, O2 sats at rest in bed 89%, after sitting in chair sats decreased to 82% with increased to 89% after approx 3 mins Exercises Seated Therapy Exercises: Ankle pumps, Long arc quads, Hip flexion, Hip abd/add Seated Reps: 12 Assessment Current Status: Fair Progress O2 sats drop with activity, recovery in minutes PT Half-Way Goals Half-Way Goals PT Half-Way Goals Time Frame: Jan 17, 2021 Roll Left & Right (QC): 6 Sit to Lying (QC): 6 Lying-Sitting on Side/Bed(QC): 6 Sit to Stand (QC): 6 Chair/Wra-ps-Dfkvs Xfer(QC): 6 Walk 10 feet (QC): 6 Walk 50ft with 2 Turns (QC): 4 PT Plan Treatment/Plan Treatment Plan: Continue Plan of Care Treatment Plan: Education, Functional Activity Ambrosio, Functional Strength, Gait, Safety, Therapeutic Exercise, Transfers Treatment Duration: Jan 17, 2021 Frequency: 6 times per week Estimated Hrs Per Day: .25 hour per day Patient and/or Family Agrees t: Yes Safety Risks/Education Patient Education: Gait Training, Transfer Techniques, Disease Process, Safety Issues Time/GCodes Time In: 1010 Time Out: 1030 Total Billed Treatment Time: 20 Total Billed Treatment 1,FA20m JAMES LUNSFORD SKIN LAP BONDER January 13, 2021 10:49
[2021-01-13] MEDS: PANTOPRAZOLE 40 MG (PROTONIX) TAB PO SCH (12:17)
[2021-01-13] MEDS: LORATADINE (CLARITIN) 10 MG TAB PO SCH (12:17)
[2021-01-13] MEDS: LEVOFLOXACIN 500 MG/D5W 100 ML (PRE-MIX) IV SCH (12:17)
--- NOTE | 2021-01-13 12:41 | Progress Note ---
Subjective Subjective Date Seen by Provider: January 13, 2021 Time Seen by Provider: 11:30 Patient reports she is feeling tired this AM. She would like to get better and go home. Still not a great appetite- attributed in part the food does not taste good. 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 Review of Systems General: No Chills, No Night Sweats; Fatigue, Malaise; No Appetite, No Other HEENT: No Head Aches, No Visual Changes, No Eye Pain, No Ear Pain, No Dysphasia, No Sinus Congestion, No Post Nasal Drip, No Sore Throat, No Other Pulmonary: Dyspnea; No Cough, No Pleuritic Chest Pain, No Other Cardiovascular: No: Chest Pain, Palpitations, Orthopnea, Paroxysmal Noc. Dyspnea, Edema, Lt Headedness, Other Gastrointestinal: No: Nausea, Vomiting Genitourinary: No Dysuria, No Frequency Musculoskeletal: No: neck pain, back pain Neurological: Weakness; No: Numbness All Other Systems Reviewed All Other Systems Reviewed: Yes Objective Exam Vital Signs Vital Signs Date Time Temp Pulse Resp B/P (MAP) Pulse Ox O2 Delivery O2 Flow Rate FiO2 01/13/21 12:00 68 23 97 High Flow N/C 8.00 01/13/21 11:00 76 20 89 High Flow N/C 8.00 01/13/21 10:52 94 High Flow N/C 10.00 01/13/21 10:00 68 20 125/88 (100) 96 High Flow N/C 10.00 01/13/21 09:00 94 High Flow N/C 10.00 01/13/21 09:00 83 32 124/73 (90) 98 High Flow N/C 10.00 01/13/21 08:00 62 25 130/65 (86) 96 High Flow N/C 10.00 01/13/21 07:23 93 High Flow N/C 10.00 01/13/21 07:00 62 01/13/21 07:00 62 23 130/70 (90) 96 High Flow N/C 10.00 01/13/21 06:00 64 23 137/71 (93) 96 High Flow N/C 10.00 01/13/21 05:00 61 22 127/71 (89) 93 High Flow N/C 10.00 01/13/21 04:00 65 23 132/68 (89) 97 High Flow N/C 10.00 01/13/21 03:00 64 21 128/73 (91) 96 High Flow N/C 10.00 01/13/21 02:34 92 High Flow N/C 10.00 01/13/21 02:00 64 21 126/69 (88) 96 High Flow N/C 10.00 01/13/21 01:00 70 01/13/21 01:00 69 22 139/80 (99) 97 High Flow N/C 10.00 01/13/21 00:00 75 24 138/80 (99) 97 High Flow N/C 10.00 01/12/21 23:00 73 21 141/84 (103) 94 High Flow N/C 10.00 01/12/21 22:00 75 23 135/72 (93) 96 High Flow N/C 10.00 01/12/21 21:00 86 23 134/91 (105) 95 High Flow N/C 10.00 01/12/21 20:00 94 Vapotherm 25.00 50 01/12/21 20:00 93 23 138/96 (110) 97 High Flow N/C 10.00 01/12/21 19:23 36.2 01/12/21 19:00 101 24 147/80 (102) 93 High Flow N/C 15.00 01/12/21 19:00 109 01/12/21 18:44 91 High Flow N/C 15.00 01/12/21 18:18 Vapotherm 15.00 50.00 01/12/21 18:00 113 24 Vapotherm 10.00 50.00 01/12/21 17:00 122 18 146/94 (111) 91 Vapotherm 10.00 50.00 01/12/21 16:00 105 18 114/88 (97) 96 Vapotherm 10.00 50.00 01/12/21 16:00 36.2 01/12/21 15:38 Vapotherm 10.00 50.00 01/12/21 15:04 92 High Flow N/C 10.00 01/12/21 15:00 102 24 142/83 (102) 91 Vapotherm 30.00 50.00 01/12/21 14:43 95 Vapotherm 20.00 50 01/12/21 14:00 93 18 132/94 (107) 90 Vapotherm 30.00 50.00 01/12/21 13:00 93 25 147/83 (104) 93 Vapotherm 30.00 50.00 01/12/21 12:50 94 I & O 01/13/21 06:59 Intake Total 1120 ml Output Total 1475 ml Balance -355 ml General Appearance: No Apparent Distress, WD/WN, Moderate Distress (speech a bit fragmented due to SOB) HEENT: PERRL/EOMI, Moist Mucous Membranes Neck: Non Tender, Supple Respiratory: Chest Non Tender, Crackles (bibasilar), Respiratory Distress (using accessory muscles to breathe currently) Cardiovascular: No Edema, Normal Peripheral Pulses, Systolic Murmur, Irregularly Irregular Gastrointestinal: Non Tender, Soft Rectal: Deferred Back: No CVA Tenderness Extremity: Normal Capillary Refill, Non Tender, No Calf Tenderness, No Pedal Edema Neurologic/Psychiatric: Alert, Oriented x3, No Motor/Sensory Deficits Skin: Normal Color, Warm/Dry Lymphatic: No Adenopathy Results Lab Laboratory Tests 01/13/21 02:42: White Blood Count 9.3, Red Blood Count 4.13, Hemoglobin 13.3, Hematocrit 41, Mean Corpuscular Volume 98, Mean Corpuscular Hemoglobin 32, Mean Corpuscular Hemoglobin Concent 33, Red Cell Distribution Width 13.4, Platelet Count 210, Mean Platelet Volume 9.5, Immature Granulocyte % (Auto) 0, Neutrophils (%) (Auto) 95H, Lymphocytes (%) (Auto) 3L, Monocytes (%) (Auto) 2, Eosinophils (%) (Auto) 0, Basophils (%) (Auto) 0, Neutrophils # (Auto) 8.8H, Lymphocytes # (Auto) 0.2L, Monocytes # (Auto) 0.2, Eosinophils # (Auto) 0.0, Basophils # (Auto) 0.0, Immature Granulocyte # (Auto) 0.0 01/13/21 02:43: Sodium Level 134L, Potassium Level 3.9, Chloride Level 94L, Carbon Dioxide Level 29, Anion Gap 11, Blood Urea Nitrogen 17, Creatinine 0.55L, Estimat Glomerular Filtration Rate > 60, BUN/Creatinine Ratio 31, Glucose Level 157H, Calcium Level 9.0, Phosphorus Level 3.3, Magnesium Level 2.2 Microbiology 01/11/21 Gram Stain - Final, Complete 01/11/21 Sputum Culture - Final, Complete Usual upper respiratory jordyn 01/09/21 Blood Culture - Preliminary, Resulted No growth Assessment/Plan Assessment/Plan Admission Dx acute on chronic respiratory failure afib with rvr Assessment and Plan 01/09/21- admitted for worsening respiratory failure- went into afib with rvr. -diltiazem gtts, therapeutic lovenox -cardiology consulted. -RT consulted, pulm consulted. -on steroids, levoquin to cover pneumonia. 01/10/21- sodium level normal with IVF. -strep pne, legionella antigen negative. -STOPPED lovenox 80mg BID because she does not weight 78Kg- (she received 2 doses) -she weighs about 100pounds- ~45kg- changed to 45mg BID to start tomorrow. -monitor for any bleeding. 01/11/21- now on eliquis instead of lovenox. -palliative care consult placed. 01/12/21- patient is not interested in hospice at this time; she is motivated and is started to feel better- we will remove campbell catheter. monitor UOP. RT to work on titrating down and getting her on 3-4 L NC oxygen. 01/13/21- -patient now on 10L HFNC, will transfer to 4th floor and hopefully continue titrating down her oxygen. Sodium a little lower today. Discussed with patient that her respiratory status will continue to decline over time and likely the next time she has a COPD exacerbation or pneumonia she may not recover. Disp: prognosis guarded due to her respiratory status. Problems: (1) Acute and chronic respiratory failure with hypoxia (2) Pneumonia (3) Hyponatremia Assessment & Plan: partially due to her 750ml of wine per day. -monitor (4) Paroxysmal A-fib (5) COPD exacerbation Admission Dx acute on chronic respiratory failure afib with rvr Clinical Quality Measures Admission Status Admission Dx acute on chronic respiratory failure afib with rvr SLICK DE SANTIAGO MD January 13, 2021 12:41
[2021-01-13] MEDS: MONTELUKAST 10 MG (SINGULAIR) TAB PO SCH (20:24)
[2021-01-14] MEDS: RT-ALBUTEROL/IPRATROPIUM 3 ML (DUONEB) VIAL IH SCH ×7 (00:35→22:13)
[2021-01-14 03:07] LABS: CHLORIDE 92 MMOL/L (98-107); POTASSIUM 3.8 MMOL/L (3.6-5.0); SODIUM 134 MMOL/L (135-145)
[2021-01-14 03:08] LABS: CALCIUM 8.7 MG/DL (8.5-10.1); GLUCOSE 163 MG/DL (70-105)
[2021-01-14 03:10] LABS: CARBON DIOXIDE 32 MMOL/L (21-32)
[2021-01-14 03:12] LABS: CREATININE SERUM 0.57 MG/DL (0.60-1.30); GFR ESTIMATED > 60
[2021-01-14 03:13] LABS: BUN/CREATININE RATIO 32
[2021-01-14 03:36] VITALS: BP 120/59
[2021-01-14] MEDS: methylPREDNISolone 40 MG/ML (Solu-MEDROL) VIAL IV SCH ×2 (04:19→11:07)
[2021-01-14] MEDS: RT--FLUTICASONE/SALMETEROL 113-14 (AIRDUO RespiCLICK) IH SCH ×2 (06:40→22:13)
[2021-01-14 07:50] VITALS: BP 121/57
--- NOTE | 2021-01-14 08:42 | Diagnostic Imaging Report ---
CHEST 1 VIEW, AP/PA ONLY Indication: Dyspnea Comparison: 01/13/2021 Findings: No change to chronic opacification left upper hemithorax. Abnormal hypoattenuation throughout both lungs is likely due to severe underlying emphysema. Heterogeneous basilar pulmonary opacities have improved but persists. No pneumothorax. Impression: 1. Improving basilar opacities may be due to resolving infection or edema superimposed on severe emphysema. 2. Chronic left upper lobe opacification and architectural distortion is unchanged. Dictated by: Dictated on workstation # [id number]
[2021-01-14] MEDS: meTOprolol TARTRATE 25 MG (LOPRESSOR) TABLET PO SCH ×2 (08:55→20:10)
[2021-01-14] MEDS: FUROSEMIDE 40 MG/4 ML INJ (LASIX) IVP SCH (08:55)
[2021-01-14] MEDS: APIXABAN 5 MG (ELIQUIS) TABLET PO SCH ×2 (08:56→20:10)
[2021-01-14] MEDS: PANTOPRAZOLE 40 MG (PROTONIX) TAB PO SCH (11:07)
[2021-01-14] MEDS: LORATADINE (CLARITIN) 10 MG TAB PO SCH (11:07)
[2021-01-14 11:33] VITALS: BP 109/65
--- NOTE | 2021-01-14 11:45 | Progress Note ---
Subjective Subjective Date Seen by Provider: January 14, 2021 Time Seen by Provider: 11:43 Patient reports she is feeling better- down on oxygen requirement. She has gotten up and had a bowel movement and used the bedside commode for urinating. She does get short of breath but it is manageable. She has family at home to help. She wants to go home today. Review of Systems General: No Chills, No Night Sweats HEENT: No Head Aches Pulmonary: Dyspnea, Cough Cardiovascular: No: Chest Pain, Palpitations Gastrointestinal: No: Nausea, Vomiting Genitourinary: No Dysuria Musculoskeletal: No: arm pain, back pain, hand pain, leg pain, foot pain Neurological: Weakness All Other Systems Reviewed All Other Systems Reviewed: Yes Objective Exam Vital Signs Vital Signs Date Time Temp Pulse Resp B/P (MAP) Pulse Ox O2 Delivery O2 Flow Rate FiO2 01/14/21 11:33 36.7 80 20 109/65 (80) 91 Nasal Cannula 4.00 01/14/21 10:28 92 High Flow N/C 4.00 01/14/21 08:51 High Flow N/C 5.00 01/14/21 07:50 36.2 85 20 121/57 (78) 92 High Flow N/C 6.00 01/14/21 07:00 71 01/14/21 06:36 97 High Flow N/C 5.00 01/14/21 03:36 36.4 78 20 120/59 (79) 94 High Flow N/C 6.00 01/14/21 02:43 94 High Flow N/C 6.00 01/14/21 00:00 72 01/13/21 23:48 36.4 64 20 116/63 (80) 98 High Flow N/C 6.00 01/13/21 21:57 111/63 (79) 01/13/21 20:08 High Flow N/C 6.00 01/13/21 19:49 35.9 85 20 116/56 (76) 93 High Flow N/C 6.00 01/13/21 19:00 93 High Flow N/C 5.00 01/13/21 19:00 89 01/13/21 18:59 93 High Flow N/C 5.00 01/13/21 15:46 36.2 89 22 122/56 (78) 95 High Flow N/C 6.00 01/13/21 14:27 36.1 86 20 140/74 (96) 92 High Flow N/C 6.00 01/13/21 14:10 High Flow N/C 6.00 01/13/21 13:23 95 High Flow N/C 8.00 01/13/21 13:00 78 01/13/21 12:00 68 23 97 High Flow N/C 8.00 I & O 01/14/21 07:00 Intake Total 1270 ml Output Total 650 ml Balance 620 ml General Appearance: No Apparent Distress, WD/WN HEENT: PERRL/EOMI Neck: Non Tender, Supple Respiratory: Chest Non Tender, Decreased Breath Sounds (bases), Respiratory Distress; No Rhonci, No Wheezing Cardiovascular: Regular Rate, Rhythm (atrial fibrillation); No Irregularly Irregular Gastrointestinal: Non Tender, Soft Rectal: Deferred Back: No CVA Tenderness Extremity: Non Tender, No Calf Tenderness Neurologic/Psychiatric: Alert, Oriented x3 Skin: Warm/Dry Lymphatic: No Adenopathy Results Lab Laboratory Tests 01/14/21 02:35: Sodium Level 134L, Potassium Level 3.8, Chloride Level 92L, Carbon Dioxide Level 32, Anion Gap 10, Blood Urea Nitrogen 18, Creatinine 0.57L, Estimat Glomerular Filtration Rate > 60, BUN/Creatinine Ratio 32, Glucose Level 163H, Calcium Level 8.7 Microbiology 01/11/21 Gram Stain - Final, Complete 01/11/21 Sputum Culture - Final, Complete Usual upper respiratory jordyn 01/09/21 Blood Culture - Preliminary, Resulted No growth Assessment/Plan Assessment/Plan Admission Dx acute on chronic respiratory failure afib with rvr Assessment and Plan 01/09/21- admitted for worsening respiratory failure- went into afib with rvr. -diltiazem gtts, therapeutic lovenox -cardiology consulted. -RT consulted, pulm consulted. -on steroids, levoquin to cover pneumonia. 01/10/21- sodium level normal with IVF. -strep pne, legionella antigen negative. -STOPPED lovenox 80mg BID because she does not weight 78Kg- (she received 2 doses) -she weighs about 100pounds- ~45kg- changed to 45mg BID to start tomorrow. -monitor for any bleeding. 01/11/21- now on eliquis instead of lovenox. -palliative care consult placed. 01/12/21- patient is not interested in hospice at this time; she is motivated and is started to feel better- we will remove campbell catheter. monitor UOP. RT to work on titrating down and getting her on 3-4 L NC oxygen. 01/13/21- -patient now on 10L HFNC, will transfer to 4th floor and hopefully continue titrating down her oxygen. Sodium a little lower today. Discussed with patient that her respiratory status will continue to decline over time and likely the next time she has a COPD exacerbation or pneumonia she may not recover. 01/14/21- levoquin po x 2 days- stop date 01/15/21 for total of 7 days. Con verted IV methylpred to oral dexamethasone- will taper her off of it. Oxygen requirement is down to 5-6 liters this AM. Will contine to monitor. She has improved. --If she remains below 5-6L of oxygen tomorrow- and she is doing well will discharge to home! With family assistance. Disp: prognosis guarded due to her respiratory status. Problems: (1) Atrial fibrillation with RVR (2) Acute and chronic respiratory failure with hypoxia (3) Pneumonia (4) Hyponatremia Assessment & Plan: partially due to her 750ml of wine per day. -monitor (5) COPD exacerbation Admission Dx acute on chronic respiratory failure afib with rvr Clinical Quality Measures Admission Status Admission Dx acute on chronic respiratory failure afib with rvr SLICK DE SANTIAGO MD January 14, 2021 11:45
[2021-01-14 15:37] VITALS: BP 101/57
[2021-01-14 19:52] VITALS: BP 110/58
[2021-01-14] MEDS: MONTELUKAST 10 MG (SINGULAIR) TAB PO SCH (20:10)
[2021-01-14 23:37] VITALS: BP 114/70
[2021-01-15] MEDS: RT-ALBUTEROL/IPRATROPIUM 3 ML (DUONEB) VIAL IH SCH ×3 (02:04→10:48)
[2021-01-15 03:21] LABS: CHLORIDE 91 MMOL/L (98-107)
[2021-01-15 03:22] LABS: SODIUM 136 MMOL/L (135-145)
[2021-01-15 03:23] LABS: CALCIUM 9.2 MG/DL (8.5-10.1); GLUCOSE 157 MG/DL (70-105)
[2021-01-15 03:25] LABS: CARBON DIOXIDE 34 MMOL/L (21-32)
[2021-01-15 03:27] LABS: CREATININE SERUM 0.66 MG/DL (0.60-1.30); GFR ESTIMATED > 60
[2021-01-15 03:28] LABS: BUN/CREATININE RATIO 38
[2021-01-15 04:00] VITALS: BP 135/73
[2021-01-15] MEDS ORDERED: dexAMETHasone 6 MG TAB (DECADRON) PO SCH (07:00)
[2021-01-15] MEDS: RT--FLUTICASONE/SALMETEROL 113-14 (AIRDUO RespiCLICK) IH SCH (07:11)
[2021-01-15 08:00] VITALS: BP 129/62
--- NOTE | 2021-01-15 08:04 | Diagnostic Imaging Report ---
INDICATION: Dyspnea COMPARISON STUDY: Chest from yesterday. FINDINGS: Frontal view of the chest demonstrates pleural thickening in both lung apices, much more severe on the left than the right. Retraction of the bronchi especially on the left present. Bilateral pulmonary infiltrates mainly in the lower lobes are improving. Heart size is stable. IMPRESSION: 1. There has been some improvement of the bilateral pulmonary infiltrates. 2. Pleural thickening in both lung apices, left greater than right, with retraction of the mainstem bronchi are again identified. Dictated by: Dictated on workstation # [id number]
[2021-01-15] MEDS: APIXABAN 5 MG (ELIQUIS) TABLET PO SCH (08:09)
[2021-01-15] MEDS: FUROSEMIDE 40 MG/4 ML INJ (LASIX) IVP SCH (08:10)
[2021-01-15] MEDS: meTOprolol TARTRATE 25 MG (LOPRESSOR) TABLET PO SCH (08:10)
--- NOTE | 2021-01-15 10:05 | Physical Therapy Daily Note ---
PT Daily Note-Current Subjective Pt reports that she plans to go home today. Transfers SCALE: Activities may be completed with or without assistive devices. 2-Zookfvkyah-wdcjpsg completes the activity by him/herself with no assistance from a helper. 5-Set-up or Clean-up Assistance-helper sets up or cleans up; patient completes activity. [place] assists only prior to or following the activity. 4-Supervision or Touching Assistance-helper provides verbal cues and/or touching/steadying and/or contact guard assistance as patient completes activity. Assistance may be provided throughout the activity or intermittently. 3-Partial/Moderate Assistance-helper does LESS THAN HALF the effort. [place] lifts, holds or supports trunk or limbs, but provides less than half the effort. 2-Substantial/Maximal Assistance-helper does MORE THAN HALF the effort. [place] lifts or holds trunk or limbs and provides more than half the effort. 6-Jzxuivdve-fbxgir does ALL the effort. Patient does none of the effort to complete the activity. Or, the assistance of 2 or more helpers is required for the patient to complete the activity. If activity was not attempted, code reason: 7-Patient Refused. 9-Not Applicable-not attempted and the patient did not perform the activity before the current illness, exacerbation or injury. 10-Not Attempted due to Environmental Limitations-(lack of equipment, weather restraints, etc.). 88-Not Attempted due to Medical Conditions or Safety Concerns. Exercises Standing: Dynamic Reaching Ex, Hip Abduction, Heel/toe raises, 3 way Ex=Flex, Abd, Ext, Marching, Mini squats, Sit to Stand, Unilateral stance Standing Reps: 10 Pt has to take one standing break to regain control of breathing during her exercises. Assessment Pt demonstrated good standing dynamic balance. PT Skilled Nursing Goals Business Analytics Analyst Goals PT Business Analytics Analyst Goals Time Frame: Jan 17, 2021 Roll Left & Right (QC): 6 Sit to Lying (QC): 6 Lying-Sitting on Side/Bed(QC): 6 Sit to Stand (QC): 6 Chair/Oxz-wo-Rsfyc Xfer(QC): 6 Walk 10 feet (QC): 6 Walk 50ft with 2 Turns (QC): 4 PT Plan Treatment/Plan Treatment Plan: Continue Plan of Care Treatment Plan: Education, Functional Activity Ambrosio, Functional Strength, Gait, Safety, Therapeutic Exercise, Transfers Treatment Duration: Jan 17, 2021 Frequency: 6 times per week Estimated Hrs Per Day: .25 hour per day Patient and/or Family Agrees t: Yes Time/GCodes Time In: 950 Time Out: 1005 Total Billed Treatment Time: 15 Total Billed Treatment visit, exercise 15min MARIVEL POPE PT January 15, 2021 10:05
[2021-01-15] MEDS ORDERED: FURO40TA4 PO (10:20)
[2021-01-15] MEDS ORDERED: METO-333 PO (10:20)
[2021-01-15] MEDS ORDERED: APIX2.5T PO (10:20)
[2021-01-15] MEDS ORDERED: DILT60CA PO (10:20)
[2021-01-15] MEDS ORDERED: DEXA4TAB PO (10:22)
--- NOTE | 2021-01-15 10:25 | Discharge Summary ---
Discharge Summary Hospital Course Was the Problem List Reviewed?: Yes Problems/Dx: (1) Atrial fibrillation with RVR Status: Resolved (2) Acute and chronic respiratory failure with hypoxia (3) Pneumonia Status: Acute (4) Hyponatremia Status: Chronic (5) COPD exacerbation Status: Acute (6) Paroxysmal A-fib Status: Chronic Hospital Course Date of Admission: January 09, 2021 at 09:45 Admission Diagnosis : Problems: (1) Atrial fibrillation with RVR (2) Acute and chronic respiratory failure with hypoxia (3) Pneumonia (4) Hyponatremia (5) COPD exacerbation Family Physician/Provider: Obed De Santiago MD Date of Discharge: 01/15/21 Discharge Diagnosis: (1) Atrial fibrillation with RVR- resolved (2) Acute and chronic respiratory failure with hypoxia (3) Pneumonia (4) Hyponatremia (5) COPD exacerbation Hospital Course: 75 yo F with chronic respiratory failure direct admit from pulmonology clinic. She has been to the ER on 01/07/21 for continued dyspnea on exertion and worsening respiratory status. Repeat chest xray suggests pneumonia. She was admitted to 4th floor but this afternoon went into afib with rvr so she was transferred up to ICU and started on a diltiazem gtts as well as therapeutic lovenox. She is on levofloxacin for her pneumonia. Strep, legionella ordered and pending. blood cultures pending. Patient reports she is not wanting to but sure feels like she could. Patient reports she is unable to walk 10 feet without getting short of breath. Onset a couple weeks ago. She was on cefdinir and prednisone taper 2 weeks ago and had a 2 day period of feeling better but declined again. ER put her on do xycycline 01/07/21. Her baseline oxygen is 3-4 L which is about what she is requiring currently. She does continue to drink about 750ml of wine over an 8-10hour period during the day. She quit smoking 8 years ago. 01/09/21- admitted for worsening respiratory failure- went into afib with rvr. -diltiazem gtts, therapeutic lovenox -cardiology consulted. -RT consulted, pulm consulted. -on steroids, levoquin to cover pneumonia. 01/10/21- sodium level normal with IVF. -strep pne, legionella antigen negative. -STOPPED lovenox 80mg BID because she does not weight 78Kg- (she received 2 doses) -she weighs about 100pounds- ~45kg- changed to 45mg BID to start tomorrow. -monitor for any bleeding. 01/11/21- now on eliquis instead of lovenox. -palliative care consult placed. 01/12/21- patient is not interested in hospice at this time; she is motivated and is started to feel better- we will remove campbell catheter. monitor UOP. RT to work on titrating down and getting her on 3-4 L NC oxygen. 01/13/21- -patient now on 10L HFNC, will transfer to 4th floor and hopefully continue titrating down her oxygen. Sodium a little lower today. Discussed with patient that her respiratory status will continue to decline over time and likely the next time she has a COPD exacerbation or pneumonia she may not recover. 01/14/21- levoquin po x 2 days- stop date 01/15/21 for total of 7 days. Converted IV methylpred to oral dexamethasone- will taper her off of it. Oxygen requirement is down to 5-6 liters this AM. Will continue to monitor. -Pt continued to improve and was discharged to home 01/15/21 on 4L oxygen- She has family that is going to help take care of her. If needed we will order Home Health. Patient understands each time she has a COPD exacerbation he reserve is going to be lower each time and recovery will be harder. Labs and Pending Lab Test: Laboratory Tests 01/15/21 03:01: Sodium Level 136, Potassium Level 4.0, Chloride Level 91L, Carbon Dioxide Level 34H, Anion Gap 11, Blood Urea Nitrogen 25H, Creatinine 0.66, Estimat Glomerular Filtration Rate > 60, BUN/Creatinine Ratio 38, Glucose Level 157H, Calcium Level 9.2 Microbiology 01/11/21 Gram Stain - Final, Complete 01/11/21 Sputum Culture - Final, Complete Usual upper respiratory jordyn 01/09/21 Blood Culture - Preliminary, Resulted No growth Home Meds Active Diltiazem 12Hr ER (Diltiazem HCl) 60 Mg Cap.er.12h 60 Mg PO BID 30 Days Furosemide 40 Mg Tablet 40 Mg PO DAILY Eliquis (Apixaban) 2.5 Mg Tablet 2.5 Mg PO BID 30 Days Metoprolol Tartrate 25 Mg Tablet 12.5 Mg PO BID 30 Days Reported Vitamin D3 (Cholecalciferol (Vitamin D3)) 50 Mcg Capsule 50 Mcg PO HS Aspirin EC (Aspirin) 81 Mg Tablet. 81 Mg PO HS Albuterol Sulfate 2.5 Mg/0.5 Ml Vial.neb 2.5 Mg INH Q6H PRN Incruse Ellipta (Umeclidinium [place]) 62.5 Mcg Blst.w.dev 1 Puff INH DAILY Breo Ellipta 200-25 Mcg INH (Fluticasone/Vilanterol) 1 Each Blst.w.dev 1 Puff INH DAILY Ventolin Hfa (Albuterol Sulfate) 18 Gm Hfa.aer.ad 2 Puff INH Q4H PRN Assessment/Pt Instructions Medication changes- eliquis 2.5mg BID for your atrial fibrillation diltiazem 60mg BID for rate control metoprolol 12.5mg BID furosemide 40mg for swelling follow up around 1 week with [facility] follow up in [address] Savage. Discharge Planning: >30 minutes discharge planning Discharge Instructions Discharge Diet: Eat Small Frequent Meals Activity as Tolerated: Yes Discharge Physical Examination Vital Signs Vital Signs Date Time Temp Pulse Resp B/P (MAP) Pulse Ox O2 Delivery O2 Flow Rate FiO2 01/15/21 08:22 High Flow N/C 4.00 01/15/21 08:00 36.7 79 20 129/62 (84) 93 01/12/21 20:00 50 General Appearance: No Apparent Distress, WD/WN HEENT: PERRL/EOMI Respiratory: Chest Non Tender, No Accessory Muscle Use, No Respiratory Distress (with resting.), Decreased Breath Sounds Cardiovascular: Regular Rate, Rhythm, No Edema Gastrointestinal: Non Tender, Soft Skin: Normal Color, Warm/Dry Neurologic/Psychiatric: Alert, Oriented x3, No Motor/Sensory Deficits Allergies: Coded Allergies: No Known Drug Allergies (Verified , 04/05/15) Discharge Summary Date of Admission January 09, 2021 at 09:45 Date of Discharge Discharge Diagnosis (1) Atrial fibrillation with RVR Status: Resolved (2) Acute and chronic respiratory failure with hypoxia (3) Pneumonia Status: Acute (4) Hyponatremia Status: Chronic Assessment & Plan: partially due to her 750ml of wine per day. -monitor (5) COPD exacerbation Status: Acute OBED DE SANTIAGO MD January 15, 2021 10:25
[2021-01-15] MEDS: PANTOPRAZOLE 40 MG (PROTONIX) TAB PO SCH (11:20)
[2021-01-15] MEDS: LORATADINE (CLARITIN) 10 MG TAB PO SCH (11:20)
== END 2021-01-15 12:00 | disposition home or self-care (01) | DRG 193 ==
LOC: 4TH 09:45 → ICU 19:40 → 4TH 01-13 13:15
PROVIDERS: ADMIT Family Medicine; ATTEND Family Medicine
DX: J18.9 Pneumonia, unspecified organism (principal); J96.20 Acute and chronic respiratory failure, unspecified whether with hypoxia or hypercapnia; E87.1 Hypo-osmolality and hyponatremia; I48.0 Paroxysmal atrial fibrillation; I49.3 Ventricular premature depolarization; J43.9 Emphysema, unspecified; Z66 Do not resuscitate; F10.20 Alcohol dependence, uncomplicated; Z90.2 Acquired absence of lung [part of]; Z87.891 Personal history of nicotine dependence; Z79.2 Long term (current) use of antibiotics; Z79.82 Long term (current) use of aspirin; Z79.52 Long term (current) use of systemic steroids
CPT/HCPCS: 36415; 36600; 71045; 80048; 80053; 81000; 82805; 83605; 83735; 83880; 84100; 84145; 85025; 85027; 87040; 87070; 87081; 87205; 87449; 87899; 93005; 94640; 94664; 94760

== ENCOUNTER 2021-01-26 10:20 | Inpatient (IN) | payer MEDICARE, OTHER ==
[~2021-01-26] VITALS: Ht 157.5 cm; Wt 49.0 kg
[~2021-01-26 10:20] MED LIST changes: +ALB0.5V INH; +APIX2.5T PO; +CHOL20002 PO; +DEXA4TAB PO; +DILT60CA PO; +FLUT1BLS INH; +FURO40TA4 PO; +PRD10T PO; +UMEC62.5 INH
[2021-01-26] MEDS ORDERED: methylPREDNISolone 125 MG (Solu-MEDROL) VIAL IV STA (10:57)
[2021-01-26] MEDS ORDERED: CEFEPIME INJECTION 1,000 MG in WATER (STERILE) FOR INJECTION 10 ML IV ONE (11:00)
[2021-01-26] MEDS ORDERED: LACTATED RINGERS 1,000 ML IV ONE (11:00)
[2021-01-26] MEDS ORDERED: VANCOMYCIN INJECTION 750 MG in NS (IVPB) 250 ML IV ONE (11:00)
[2021-01-26] MEDS ORDERED: RT-ALBUTEROL/IPRATROPIUM 3 ML (DUONEB) VIAL INH ONE (11:00)
--- NOTE | 2021-01-26 11:06 | ED Respiratory ---
General Chief Complaint: Fever-Adult/Adol Stated Complaint: FEVER Nursing Triage Note: PT TO ROOM 3 PER W/C W DAUGHTER, PT WEARS O2 @5L PER N/C. PT STATES HAD TEMP 100.3 THIS AM. PT STATES NOT FEELING VERY WELL, WAS RELEASED FROM HOSP ON 01/15 [facility]. Source: patient Exam Limitations: no limitations History of Present Illness Date Seen by Provider: Jan 26, 2021 Time Seen by Provider: 10:44 Initial Comments The patient presents ER by private conveyance from home with her daughter and chief complaint that she has been declining in terms of her shortness of air and wheezing over the past 2 to 3 days. She took a breathing treatment last at 730 this morning and did not feel like it helped. She has a history of COPD. She is not having a productive cough but she did have a fever of 100.3 this morning. She did not take anything for it. She was dismissed from the hospital 11 days ago for a pneumonia and not sent home on any antibiotics but she was sent home on steroid taper. She follows with Obed De Santiago and used to follow with Dr. Roca, pulmonology. She says she seen Dr. Savage in the past for atrial fibrillation but felt like it was only related to an infection so she dismissed her cell from his practice and no longer takes the Cardizem or Eliquis. She is not having any nausea chest pain leg pain or swelling. She typically depends on 3 L by nasal cannula of supplemental oxygen and today has gone up to 4. Allergies and Home Medications Allergies Coded Allergies: No Known Drug Allergies (Verified , 04/05/15) Home Medications Albuterol Sulfate 18 Gm Hfa.aer.ad, 2 PUFF INH Q4H PRN for SHORTNESS OF BREATH, (Reported) Albuterol Sulfate 2.5 Mg/0.5 Ml Vial.neb, 2.5 MG INH Q6H PRN for SHORTNESS OF BREATH, (Reported) Apixaban 2.5 Mg Tablet, 2.5 MG PO BID Prescribed by: OBED DE SANTIAGO on 01/15/21 1020 Aspirin 81 Mg Tablet.dr, 81 MG PO HS, (Reported) Cholecalciferol (Vitamin D3) 50 Mcg Capsule, 50 MCG PO HS, (Reported) Dexamethasone 4 Mg Tablet, 4 MG PO DAILY Prescribed by: OBED DE SANTIAGO on 01/15/21 1022 Diltiazem HCl 60 Mg Cap.er.12h, 60 MG PO BID Prescribed by: OBED DE SANTIAGO on 01/15/21 1020 Fluticasone/Vilanterol 1 Each Blst.w.dev, 1 PUFF INH DAILY, (Reported) Furosemide 40 Mg Tablet, 40 MG PO DAILY Prescribed by: OBED DE SANTIAGO on 01/15/21 1020 Metoprolol Tartrate 25 Mg Tablet, 12.5 MG PO BID Prescribed by: OBED DE SANTIAOG on 01/15/21 1020 Umeclidinium Viola 62.5 Mcg Blst.w.dev, 1 PUFF INH DAILY, (Reported) Patient Home Medication List Home Medication List Reviewed: Yes Review of Systems Review of Systems Constitutional: chills; No diaphoresis; fever, malaise EENTM: No ear discharge Respiratory: No cough, No phlegm; short of breath, wheezing Cardiovascular: No chest pain, No edema Musculoskeletal: No back pain, No joint pain All Other Systems Reviewed Negative Unless Noted: Yes Past Ctocmqd-Zlymhh-Rkzdzv Hx Patient Social History Alcohol Use: Occasionally Uses Alcohol Beverage of Choice: Wine Smoking Status: Former Smoker Type Used: Cigarettes Former Smoker, Quit: Dec 06, 2013 Recent Infectious Disease Expo: No Recent Hopitalizations: Yes ([facility] FOR COLLAPSED LUNG) Immunizations Up To Date Tetanus Booster (TDap): Unknown Date of Pneumonia Vaccine: Nov 03, 2014 Date of Influenza Vaccine: May 31, 2020 Past Medical History Surgeries: Yes (chemical pleurodesis, pulmonary decortication) Lobectomy Respiratory: Yes (COPD, PNEUMOTHORAX) COPD, Emphysema Cardiac: No Atrial Fibrillation Neurological: No Reproductive Disorders: No Sexually Transmitted Disease: No HIV/AIDS: No Genitourinary: No Gastrointestinal: No Musculoskeletal: No Endocrine: No Loss of Vision: Denies Hearing Impairment: Denies Cancer: No Psychosocial: No Integumentary: No Blood Disorders: No Adverse Reaction/Blood Tranf: No Family Medical History Cardiovascular disease 19 MOTHER G8 SISTER Completed stroke 19 MOTHER Parkinson's disease 19 FATHER No Pertinent Family Hx Physical Exam Vital Signs - First Documented 01/26/21 10:25 Temp 37.1 Pulse 102 Resp 32 B/P (MAP) 117/76 (90) Pulse Ox 92 O2 Delivery Nasal Cannula O2 Flow Rate 5.00 Capillary Refill : Less Than 3 Seconds Height: 5'2.00" Weight: 100lbs. 3.0oz. 45.918591na; 16.00 BMI Method:Stated General Appearance: mild distress (Came by wheelchair), thin Eyes: Bilateral Eye Normal Inspection, Bilateral Eye PERRL, Bilateral Eye EOMI HEENT: PERRL/EOMI, pharynx normal Neck: full range of motion, normal inspection Respiratory: no accessory muscle use, respiratory distress (Mild to moderate with oxygen saturation 97% on 3.5 L per nasal cannula while at rest.) Cardiovascular: normal peripheral pulses, regular rate, rhythm (In the mid 90s at rest) Gastrointestinal: normal bowel sounds, non tender Neurologic/Psychiatric: alert, normal mood/affect, oriented x 3 Skin: normal color, warm/dry Focused Exam Lactate Level 01/26/21 10:45: Lactic Acid Level 1.09 Lactic Acid Level Laboratory Tests Test 01/26/21 10:45 Lactic Acid Level 1.09 MMOL/L (0.50-2.00) Procedures/Interventions Date of ETT Placement: Dec 01, 2018 Time of ETT Placement: 711 Progress/Results/Core Measures Suspected Sepsis Recent Fever Within 48 Hours: Yes Infection Criteria Present: Suspected New Infection New/Unexplained Altered Menta: No Sepsis Screen: Possible Sepsis Risk SIRS Temperature: Pulse: 102 Respiratory Rate: 32 Laboratory Tests 01/26/21 10:45: White Blood Count 9.9 Blood Pressure 117 /76 Mean: 90 01/26/21 10:45: Lactic Acid Level 1.09 Laboratory Tests 01/26/21 10:45: Creatinine 0.61, Platelet Count 169, Total Bilirubin 0.6 Results/Orders Lab Results Laboratory Tests Test 01/26/21 10:45 Range/Units White Blood Count 9.9 4.3-11.0 10^3/uL Red Blood Count 4.20 3.80-5.11 10^6/uL Hemoglobin 13.4 11.5-16.0 g/dL Hematocrit 42 35-52 % Mean Corpuscular Volume 100 H 80-99 fL Mean Corpuscular Hemoglobin 32 25-34 pg Mean Corpuscular Hemoglobin Concent 32 32-36 g/dL Red Cell Distribution Width 13.8 10.0-14.5 % Platelet Count 169 130-400 10^3/uL Mean Platelet Volume 9.7 9.0-12.2 fL Immature Granulocyte % (Auto) 1 % Neutrophils (%) (Auto) 93 H 42-75 % Lymphocytes (%) (Auto) 3 L 12-44 % Monocytes (%) (Auto) 2 0-12 % Eosinophils (%) (Auto) 1 0-10 % Basophils (%) (Auto) 0 0-10 % Neutrophils # (Auto) 9.2 H 1.8-7.8 10^3/uL Lymphocytes # (Auto) 0.3 L 1.0-4.0 10^3/uL Monocytes # (Auto) 0.2 0.0-1.0 10^3/uL Eosinophils # (Auto) 0.1 0.0-0.3 10^3/uL Basophils # (Auto) 0.0 0.0-0.1 10^3/uL Immature Granulocyte # (Auto) 0.1 0.0-0.1 10^3/uL Neutrophils % (Manual) 84 % Lymphocytes % (Manual) 5 % Monocytes % (Manual) 1 % Eosinophils % (Manual) 2 % Basophils % (Manual) 0 % Band Neutrophils 8 % Blood Morphology Comment NORMAL Sodium Level 139 135-145 MMOL/L Potassium Level 4.1 3.6-5.0 MMOL/L Chloride Level 98 98-107 MMOL/L Carbon Dioxide Level 27 21-32 MMOL/L Anion Gap 14 5-14 MMOL/L Blood Urea Nitrogen 13 7-18 MG/DL Creatinine 0.61 0.60-1.30 MG/DL Estimat Glomerular Filtration Rate > 60 BUN/Creatinine Ratio 21 Glucose Level 98 70-105 MG/DL Lactic Acid Level 1.09 0.50-2.00 MMOL/L Calcium Level 9.7 8.5-10.1 MG/DL Corrected Calcium 10.0 8.5-10.1 MG/DL Total Bilirubin 0.6 0.1-1.0 MG/DL Aspartate Amino Transf (AST/SGOT) 24 5-34 U/L Alanine Aminotransferase (ALT/SGPT) 40 0-55 U/L Alkaline Phosphatase 60 40-136 U/L Total Protein 6.6 6.4-8.2 GM/DL Albumin 3.6 3.2-4.5 GM/DL My Orders Orders - NAT MARIN Ekg Tracing (01/26/21 10:45) Continuous Ekg Monitoring (01/26/21 10:45) Cbc With Automated Diff (01/26/21 10:57) Comprehensive Metabolic Panel (01/26/21 10:57) Blood Culture (01/26/21 10:57) Sputum Culture (01/26/21 10:57) Urinalysis (01/26/21 10:57) Urine Culture (01/26/21 10:57) Ed Iv/Invasive Line Start (01/26/21 10:57) Ed Iv/Invasive Line Start (01/26/21 10:57) Vital Signs Adult Sepsis Patie Q15M (01/26/21 10:57) O2 (01/26/21 10:57) Remove Rings In Anticipation O (01/26/21 10:57) Lactic Acid Analyzer (01/26/21 10:57) Lactated Ringers (Lr 1000 Ml Iv Solution (01/26/21 11:00) Cefepime Injection (Maxipime Injection) (01/26/21 11:00) Vancomycin Injection (Vancomycin Injecti (01/26/21 11:00) Albuterol/Ipra Inhalation Soln (Duoneb I (01/26/21 11:00) Methylprednisolone Sod Succ (Solu-Medrol (01/26/21 10:57) Chest Pa/Lat (2 View) (01/26/21 10:57) Svn Small Volume Nebulizer (01/26/21 10:57) Manual Differential (01/26/21 10:45) Ct Angio Chest W (01/26/21 13:24) Iohexol Injection (Omnipaque 350 Mg/Ml 1 (01/26/21 13:45) Received Contrast (Hold Metformin- Contr (01/26/21 13:45) Sodium Chloride Flush (Catheter Flush Sy (01/26/21 13:45) Ns (Ivpb) (Sodium Chloride 0.9% Ivpb Bag (01/26/21 13:45) Medications Given in ED Current Medications Medications Dose Ordered Sig/Mark Route Start Time Stop Time Status Last Admin Dose Admin Albuterol/ Ipratropium 3 ml ONCE ONCE INH 01/26/21 11:00 01/26/21 11:02 DC 01/26/21 11:22 3 ML Cefepime HCl 1000 mg/Sterile Water 10 ml @ 200 mls/hr ONCE ONCE IV 01/26/21 11:00 01/26/21 11:02 DC 01/26/21 11:31 200 MLS/HR Iohexol 100 ml ONCE ONCE IV 01/26/21 13:45 01/26/21 13:46 DC 01/26/21 13:54 46 ML Lactated Ringer's 1,000 ml @ 0 mls/hr Q0M ONCE IV 01/26/21 11:00 01/26/21 11:01 DC 01/26/21 11:21 1,000 MLS/HR Sodium Chloride 10 ml NEEDED PRN IV 01/26/21 13:45 01/26/21 13:54 10 ML Sodium Chloride 100 ml ONCE ONCE IV 01/26/21 13:45 01/26/21 13:46 DC 01/26/21 13:54 80 ML Vancomycin HCl 750 mg/Sodium Chloride 250 ml @ 250 mls/hr ONCE ONCE IV 01/26/21 11:00 01/26/21 11:59 DC 01/26/21 11:33 250 MLS/HR Vital Signs/I&O 01/26/21 01/26/21 01/26/21 10:25 11:02 11:25 Temp 37.1 Pulse 102 Resp 32 B/P (MAP) 117/76 (90) Pulse Ox 92 94 97 O2 Delivery Nasal Cannula Nasal Cannula Nasal Cannula O2 Flow Rate 5.00 5.00 2.00 Capillary Refill : Less Than 3 Seconds Blood Pressure Mean: 90 Progress Note #1: Time: 11:04 Progress Note Fever, mild tachypnea mild tachycardic, concern for sepsis related to respiratory disease. She does have significant wheezing auscultated and worse on the left side so we will get two-view chest x-ray and labs. She is already had 2 Covid vaccines. Suspect she has since developed repeat pneumonia. C efepime and vancomycin. 1 L would be 20 mL/kg. There is a national shortage of supplies so PT/INR and PTT is not necessary at this time. EKG demonstrates her to be in sinus rhythm at this time. Progress Note #2: Time: 12:23 Progress Note After breathing treatment the patient's breathing has turned around. Her respiratory rate is improved and her oxygen saturations at rest are 95 to 96% on her baseline 3 L by nasal cannula. Chest x-ray is unremarkable. Her breathing sounds went from very wheezy to just slight wheezes heard more on the left than the right. We did give her a small dose of steroids 62 mg IV. We offered her the opportunity to stay observation tonight for COPD exacerbation and she says she would very much like to go home. Her to have staff get her up and walk around the room and check her oxygen sats. She says she has her 3 daughters that all take part in caring for her at home and if she does well with her walking test then we would probably send her home with some azithromycin, steroids and follow-up with Obed De Santiago outpatient. ECG Initial ECG Impression Date: Jan 26, 2021 Initial ECG Impression Time: 10:32 Initial ECG Rate: 94 Initial ECG Rhythm: Normal Sinus Initial ECG Intervals: Normal Initial ECG Impression: Normal Comment Normal sinus rhythm without clinically relevant ST elevation or depression. Diagnostic Imaging Diagonstic Imaging: Xray Plain Films/CT/US/NM/MRI: chest (2v) Comments NAME: RICK BOOKER MED REC#: [id number] PT STATUS: REG ER : 1945 PHYSICIAN: NAT MARIN MD ADMIT DATE: 01/26/21/ER Draft Date of Exam:01/26/21 CHEST PA/LAT (2 VIEW) HISTORY: Shortness of air. COMPARISON: 01/15/2021. TECHNIQUE: Two views of the chest. FINDINGS: Lung volumes are large. There is scarring in the lung apices and in the left lung base which appears chronic and stable since prior exams. There is pleural thickening at the lung apices, left much more than right. This also appears chronic. The cardiac silhouette is stable in size. No pneumothorax is seen. There is no significant pleural effusion. IMPRESSION: 1. Chronic scarring and apical pleural thickening in the lungs with no acute pulmonary abnormality seen. Dictated on workstation # [id number] Dict: 01/26/21 1157 Trans: 01/26/21 1203 [id number] [id number] Interpreted by: DANIEL OROZCO MD Electronically signed by: Reviewed: Reviewed by Me Diagonstic Imaging: CT (angio) Plain Films/CT/US/NM/MRI: chest Comments No pulmonary embolisms. Significant emphysematous changes. Reviewed: Reviewed by Me Departure Communication (Admissions) Time/Spoke to Admitting Phy: 13:[address] Lewis she would like a CT angiogram. She is okay with floor placement. Impression Primary Impression: COPD exacerbation Disposition: ADMITTED INPATIENT Condition: Stable Admissions Decision to Admit Reason: Admit from ER (General) Decision to Admit/Date: Jan 26, 2021 Time/Decision to Admit Time: 12:59 Departure-Patient Inst. Referrals: OBED DE SANTIAGO MD (PCP/Family) Primary Care Physician Patient Instructions: Exacerbation of COPD (DC) NAT MARIN Jan 26, 2021 11:06
[2021-01-26 11:08] LABS: BASOPHILS % (AUTO) 0 % (0-10); EOSINOPHILS # (AUTO) 0.1 10^3/uL (0.0-0.3); EOSINOPHILS % (AUTO) 1 % (0-10); HEMATOCRIT 42 % (35-52); HEMOGLOBIN 13.4 g/dL (11.5-16.0); LYMPHOCYTES # (AUTO) 0.3 10^3/uL (1.0-4.0); LYMPHOCYTES % (AUTO) 3 % (12-44); MEAN CORPUSCULAR HEMOGLOBIN 32 pg (25-34); MEAN CORPUSCULAR HGB CONC 32 g/dL (32-36); MEAN CORPUSCULAR VOLUME 100 fL (80-99); MEAN PLATELET VOLUME 9.7 fL (9.0-12.2); MONOCYTES # (AUTO) 0.2 10^3/uL (0.0-1.0); MONOCYTES % (AUTO) 2 % (0-12); NEUTROPHILS # (AUTO) 9.2 10^3/uL (1.8-7.8); NEUTROPHILS % (AUTO) 93 % (42-75); PLATELET COUNT 169 10^3/uL (130-400); WHITE BLOOD COUNT 9.9 10^3/uL (4.3-11.0)
[2021-01-26 11:11] LABS: ALBUMIN 3.6 GM/DL (3.2-4.5); CHLORIDE 98 MMOL/L (98-107); POTASSIUM 4.1 MMOL/L (3.6-5.0); SODIUM 139 MMOL/L (135-145)
[2021-01-26 11:12] LABS: CALCIUM 9.7 MG/DL (8.5-10.1)
[2021-01-26 11:13] LABS: GLUCOSE 98 MG/DL (70-105)
[2021-01-26 11:14] LABS: TOTAL PROTEIN 6.6 GM/DL (6.4-8.2)
[2021-01-26 11:15] LABS: BILIRUBIN,TOTAL 0.6 MG/DL (0.1-1.0); CARBON DIOXIDE 27 MMOL/L (21-32)
[2021-01-26 11:17] LABS: ALKALINE PHOSPHATASE 60 U/L (40-136); CREATININE SERUM 0.61 MG/DL (0.60-1.30); GFR ESTIMATED > 60
[2021-01-26 11:18] LABS: BUN/CREATININE RATIO 21
[2021-01-26 11:20] LABS: ALANINE AMINOTRANSFERASE 40 U/L (0-55)
[2021-01-26 11:39] LABS: BAND NEUTROPHILS 8 %; BASOPHILS % (MANUAL) 0 %; EOSINOPHILS % (MANUAL) 2 %; LYMPHOCYTES % (MANUAL) 5 %; MONOCYTES % (MANUAL) 1 %; NEUTROPHILS % (MANUAL) 84 %
[2021-01-26 11:40] LABS: RBC MORPH NORMAL
--- NOTE | 2021-01-26 12:04 | Diagnostic Imaging Report ---
HISTORY: Shortness of air. COMPARISON: 01/15/2021. TECHNIQUE: Two views of the chest. FINDINGS: Lung volumes are large. There is scarring in the lung apices and in the left lung base which appears chronic and stable since prior exams. There is pleural thickening at the lung apices, left much more than right. This also appears chronic. The cardiac silhouette is stable in size. No pneumothorax is seen. There is no significant pleural effusion. IMPRESSION: 1. Chronic scarring and apical pleural thickening in the lungs with no acute pulmonary abnormality seen. Dictated by: Dictated on workstation # [id number]
[2021-01-26] MEDS ORDERED: HOLD METFORMIN - RECEIVED CONTRAST 20 ML VIAL IV SCH (13:45)
[2021-01-26] MEDS ORDERED: IOHEXOL 350 MG/ML 100 ML (OMNIPAQUE 350) VIAL IV ONE (13:45)
[2021-01-26] MEDS ORDERED: NS 100 ML (IVPB) BAG IV ONE (13:45)
[2021-01-26] MEDS ORDERED: CATHETER FLUSH 10 ML SYR IV PRN (13:45)
--- NOTE | 2021-01-26 14:24 | Diagnostic Imaging Report ---
EXAMINATION: CT angiography of the chest. TECHNIQUE: Contrast enhanced thin section helical images were obtained through the chest with intravenous contrast timed for the optimal opacification of the arterial structures per CTA protocol. Post-processing, reconstructions and interpretation of angiographic images of the vessels was performed. 3D MIP reconstructions were performed and reviewed. All CT scans use one or more of the following dose optimizing techniques: automated exposure control, MA and/or KvP adjustment based on a patient size and exam type, or iterative reconstruction. HISTORY: Shortness of breath and dyspnea, history of pneumonia. COMPARISON: CT chest 05/22/2020 FINDINGS: Vascular: No filling defects are seen within the pulmonary arteries. The thoracic aorta is normal in caliber. Thyroid: The thyroid is normal. Mediastinum: Heart size is normal without significant pericardial effusion. There is mild right to left mediastinal shift. No suspicious lymphadenopathy. Lungs and airways: There is extensive background emphysematous changes of both lungs. Surgical changes from left lobectomy. Scattered areas of scarring within the lung apices and right lower lobe. Consolidation within the right lower lobe is increased from 05/22/2020 (series 3 image 79). There is pleural thickening or fluid along the left upper pleura. No pneumothorax. The airways are normal. Upper abdomen: The subphrenic structures are normal. Musculoskeletal: No suspicious osseous lesion or compression fracture. IMPRESSION: 1. Right lower lobe consolidation which could represent pneumonia. 2. No findings of pulmonary embolus. 3. Severe background emphysematous changes of both lungs with scattered areas of scarring. 4. Chronic pleural thickening or pleural fluid within the left upper lung. Dictated by: Dictated on workstation # [id number]
[2021-01-26 14:45] VITALS: BP 133/70
[2021-01-26] MEDS: LACTATED RINGERS 1,000 ML IV SCH (15:21)
--- NOTE | 2021-01-26 15:35 | History & Physicial ---
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 SHE PRESENTED TO THE HOSPITAL FOR ACUTE WORSENING OF CHRONIC SHORTNESS OF BREATH. SHE WAS RECENTLY HOSPITALIZED - DISCHARGED ON 01/15/2021 ON [facility] AND TAPERED DOWN ON HER STEROIDS. SHE REPORTS THAT ABOUT 3 DAYS AGO SHE STARTED TO FEEL POORLY WITH INCREASED WEAKNESS, INCREASED FATIGUE, COUGHING, SHORTNESS OF BREATH WORSENING. Date of Admission Jan 26, 2021 at 13:45 Date Seen by a Provider: Jan 26, 2021 Time Seen by a Provider: 15:40 I consulted on this patient on 01/26/21 15:30 Attending Physician Ana Laura Lewis MD Admitting Physician Obed Zelaya MD Consult Allergies and Home Medications Allergies Coded Allergies: No Known Drug Allergies (Verified , 04/05/15) Home Medications Albuterol Sulfate 18 Gm Hfa.aer.ad, 2 PUFF INH Q4H PRN for SHORTNESS OF BREATH, (Reported) Last Action: Reviewed Albuterol Sulfate 2.5 Mg/0.5 Ml Vial.neb, 2.5 MG INH Q6H PRN for SHORTNESS OF BREATH, (Reported) Last Action: Reviewed Alprazolam 0.5 Mg Tablet, 0.5 MG PO BID PRN for ANXIETY, (Reported) Last Action: Continued Aspirin 325 Mg Tablet.dr, 325 MG PO HS, (Reported) Last Action: Continued Cholecalciferol (Vitamin D3) 50 Mcg Capsule, 50 MCG PO HS, (Reported) Last Action: Converted Fluticasone/Vilanterol 1 Each Blst.w.dev, 1 PUFF INH DAILY, (Reported) Last Action: Continued Metoprolol Tartrate 25 Mg Tablet, 6.25 MG PO DAILY, (Reported) TAKES OF A 25MG TAB Last Action: Reviewed Metoprolol Tartrate 25 Mg Tablet, 12.5 MG PO 1800, (Reported) TAKES OF A 25MG Last Action: Continued Umeclidinium [place] 62.5 Mcg Blst.w.dev, 1 PUFF INH DAILY, (Reported) Last Action: Continued Patient Home Medication List Home Medication List Reviewed: Yes Past Iwnpgzg-Qqwgqr-Bospop Hx Patient Social History Living Status: LIVES IN HOME ALONE, CHILDREN CHECK ON HER FREQUENTLY 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 Alcohol Beverage of Choice: Wine Smoking Status: Former Smoker Former Smoker, Quit: Dec 06, 2013 Recent Hopitalizations: Yes ([facility] FOR COLLAPSED LUNG) Have you traveled recently?: No Alcohol Use?: Yes Pt feels they are or have been: No Tobacco type used: Cigarettes Immunizations Up To Date Tetanus Booster (TDap): Unknown Date of Pneumonia Vaccine: Nov 03, 2014 Date of Influenza Vaccine: May 31, 2020 Surgeries Yes (chemical pleurodesis, pulmonary decortication) Lobectomy Respiratory Yes (COPD, PNEUMOTHORAX) COPD, Emphysema Cardiovascular Yes Atrial Fibrillation Neurological No Reproductive System Hx Reproductive Disorders: No Sexually Transmitted Disease: No HIV/AIDS: No Genitourinary No Gastrointestinal No Musculoskeletal No Endocrine History of Endocrine Disorders: No HEENT Loss of Vision: Denies Hearing Impairment: Denies Cancer No Psychosocial History of Psychiatric Problem: No Integumentary History of Skin or Integumenta: No Blood Transfusions History of Blood Disorders: No Adverse Reaction to a Blood Tr: No Reviewed Nursing Assessment Reviewed/Agree w Nursing PMH: Yes Family Medical History Significant Family History: Hypertension Family Hx: Cardiovascular disease 19 MOTHER G8 SISTER Completed stroke 19 MOTHER Parkinson's disease 19 FATHER Review of Systems Constitutional: No chills, No diaphoresis, No fever; malaise, weakness EENTM: No hoarseness, No throat pain Respiratory: cough, dyspnea on exertion, short of breath Cardiovascular: No chest pain; palpitations (INTERMITTENT) Gastrointestinal: No abdominal pain, No constipation, No diarrhea, No nausea, No vomiting Genitourinary: no symptoms reported Musculoskeletal: muscle weakness Skin: no symptoms reported Psychiatric/Neurological: No Symptoms Reported All Other Systems Reviewed Negative Unless Noted: Yes Physical Exam Vital Signs Vital Signs - First Documented 01/26/21 01/26/21 10:25 16:31 Temp 37.1 Pulse 102 Resp 32 B/P (MAP) 117/76 (90) Pulse Ox 92 O2 Delivery Nasal Cannula O2 Flow Rate 5.00 FiO2 32 Capillary Refill : Less Than 3 Seconds Height, Weight, BMI Height: 5'2.00" Weight: 100lbs. 3.0oz. 45.823535bp; 16.04 BMI Method:Stated General Appearance: No Apparent Distress, Thin Eyes: Bilateral Eye Normal Inspection, Bilateral Eye PERRL, Bilateral Eye EOMI HEENT: PERRL/EOMI, Normal ENT Inspection, Pharynx Normal Neck: Full Range of Motion, Non Tender, Supple Respiratory: Chest Non Tender, No Accessory Muscle Use, No Respiratory Distress, Crackles (IN BASES), Decreased Breath Sounds Cardiovascular: Regular Rate, Rhythm, No Edema, No Gallop, Normal Peripheral Pulses Gastrointestinal: Normal Bowel Sounds, No Organomegaly, No Pulsatile Mass, Non Tender, Soft Rectal: Deferred Back: Normal Inspection, No CVA Tenderness, No Vertebral Tenderness Extremity: Normal Capillary Refill, Normal Inspection, Normal Range of Motion, Non Tender, No Calf Tenderness, No Pedal Edema Neurologic/Psychiatric: Alert, Oriented x3, No Motor/Sensory Deficits, 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 COMPARISON: CT chest 05/22/2020 Vascular: No filling defects are seen within the pulmonary arteries. The thoracic aorta is normal in caliber. Thyroid: The thyroid is normal. Mediastinum: Heart size is normal without significant pericardial effusion. The re is mild right to left mediastinal shift. No suspicious lymphadenopathy. Lungs and airways: There is extensive background emphysematous changes of both lungs. Surgical changes from left lobectomy. Scattered areas of scarring within the lung apices and right lower lobe. Consolidation within the right lower lobe is increased from 05/22/2020 (series 3 image 79). There is pleural thickening or fluid along the left upper pleura. No pneumothorax. The airways are normal. Upper abdomen: The subphrenic structures are normal. Musculoskeletal: No suspicious osseous lesion or compression fracture. IMPRESSION: 1. Right lower lobe consolidation which could represent pneumonia. 2. No findings of pulmonary embolus. 3. Severe background emphysematous changes of both lungs with scattered areas of scarring. 4. Chronic pleural thickening or pleural fluid within the left upper lung. COPD EXACERBATION with CHRONIC EMPHYSEMA - STEROID INITIATED, MONITOR SYMPTOMS, RESUME HOME REGIMEN CHRONIC ATRIAL FIBRILLATION - RESUME HOME REGIMEN Admission Diagnosis PNEUMONIA COPD EXACERBATION CHRONIC EMPHYSEMA CHRONIC COPD CHRONIC ATRIAL FIBRILLATION Admission Status: Inpatient Order (span 2 midnights) Reason for Inpatient Admission: INPT ADMISSION FOR PNEUMONIA, COPD EXACERBATION, EMPHYSEMA, WILL REQUIRE AT LEAST 48 - 72 HOURS FOR STABILIZATION OF SYMPTOMS, MEDICATION ADJUSTMENTS, AND MONITORING PRIOR TO DISCHARGE. ANA LAURA LEWIS MD Jan 26, 2021 15:35
[2021-01-26 15:46] VITALS: BP 97/55
[2021-01-26] MEDS ORDERED: ALPR0.5T7 PO (15:50)
[2021-01-26] MEDS ORDERED: METO-333 PO ×2 (15:50)
[2021-01-26] MEDS ORDERED: ASPI325T32 PO (15:50)
[2021-01-26] MEDS ORDERED: AZITHROMYCIN 250 MG TAB (ZITHROMAX) PO SCH (16:00)
[2021-01-26] MEDS ORDERED: cefTRIAXone 1,000 MG/SWFI 10 ML IV PUSH IV SCH ×2 (16:00)
[2021-01-26 16:31] VITALS: BP 117/76
[2021-01-26] MEDS ORDERED: RT-ALBUTEROL SULF 2.5 MG/3 ML PRE-MIX VIAL INH PRN (16:45)
[2021-01-26] MEDS: CEFEPIME INJECTION 1,000 MG in WATER (STERILE) FOR INJECTION 10 ML IV SCH (17:17)
[2021-01-26] MEDS: methylPREDNISolone 125 MG (Solu-MEDROL) VIAL IVP SCH (17:17)
[2021-01-26] MEDS: RT-ALBUTEROL/IPRATROPIUM 3 ML (DUONEB) VIAL INH SCH ×2 (18:42→21:53)
[2021-01-26 19:28] VITALS: BP 122/63
[2021-01-26] MEDS: CATHETER FLUSH 10 ML SYR IV SCH (20:53)
[2021-01-26 23:56] VITALS: BP 120/68
[2021-01-27] MEDS: CEFEPIME INJECTION 1,000 MG in WATER (STERILE) FOR INJECTION 10 ML IV SCH ×5 (00:07→23:35)
[2021-01-27] MEDS: methylPREDNISolone 125 MG (Solu-MEDROL) VIAL IVP SCH ×5 (00:07→23:38)
[2021-01-27] MEDS: LACTATED RINGERS 1,000 ML IV SCH ×2 (00:07→11:49)
[2021-01-27] MEDS: VANCOMYCIN INJECTION 500 MG in NS (IVPB) 100 ML IV SCH ×3 (00:07→23:36)
[2021-01-27] MEDS: RT-ALBUTEROL/IPRATROPIUM 3 ML (DUONEB) VIAL INH SCH ×6 (01:39→21:40)
[2021-01-27 04:36] VITALS: BP 127/64
[2021-01-27] MEDS: CATHETER FLUSH 10 ML SYR IV SCH ×3 (05:36→20:20)
[2021-01-27 05:58] LABS: BASOPHILS % (AUTO) 0 % (0-10); EOSINOPHILS % (AUTO) 0 % (0-10); HEMATOCRIT 35 % (35-52); HEMOGLOBIN 11.1 g/dL (11.5-16.0); LYMPHOCYTES # (AUTO) 0.2 10^3/uL (1.0-4.0); LYMPHOCYTES % (AUTO) 3 % (12-44); MEAN CORPUSCULAR HEMOGLOBIN 32 pg (25-34); MEAN CORPUSCULAR HGB CONC 32 g/dL (32-36); MEAN CORPUSCULAR VOLUME 99 fL (80-99); MEAN PLATELET VOLUME 9.5 fL (9.0-12.2); MONOCYTES # (AUTO) 0.1 10^3/uL (0.0-1.0); MONOCYTES % (AUTO) 1 % (0-12); NEUTROPHILS # (AUTO) 5.6 10^3/uL (1.8-7.8); NEUTROPHILS % (AUTO) 95 % (42-75); PLATELET COUNT 131 10^3/uL (130-400); WHITE BLOOD COUNT 5.8 10^3/uL (4.3-11.0)
[2021-01-27 06:10] LABS: CHLORIDE 104 MMOL/L (98-107); POTASSIUM 4.1 MMOL/L (3.6-5.0); SODIUM 139 MMOL/L (135-145)
[2021-01-27 06:11] LABS: CALCIUM 8.8 MG/DL (8.5-10.1); GLUCOSE 185 MG/DL (70-105)
[2021-01-27 06:13] LABS: CARBON DIOXIDE 25 MMOL/L (21-32)
[2021-01-27 06:15] LABS: CREATININE SERUM 0.58 MG/DL (0.60-1.30); GFR ESTIMATED > 60
[2021-01-27 06:16] LABS: BUN/CREATININE RATIO 17
--- NOTE | 2021-01-27 08:03 | Diagnostic Imaging Report ---
INDICATION: COPD exacerbation. TECHNIQUE: Single view chest 5:30 AM. CORRELATION STUDY: 01/26/2021 FINDINGS: Marked distortion lung parenchyma again demonstrated. Scattered areas of fibrosis are present. Asymmetric pleural-parenchymal density left lung apex, stable. Slight increased markings right lung base could reflect superimposed infiltrate. Mediastinal structures overall generally stable as well but are somewhat ill-defined and distorted. IMPRESSION: 1. Severe fibroemphysematous change about the lung parenchyma with extensive areas of likely scarring. Question additional superimposed infiltrate at the right lung base. Dictated by: Dictated on workstation # [id number]
[2021-01-27 08:20] VITALS: BP 134/71
--- NOTE | 2021-01-27 10:12 | Progress Note ---
Subjective Subjective Date Seen by Provider: Jan 27, 2021 Time Seen by Provider: 10:00 PT REPORTS THAT SHE FEELS MORE SHORT OF BREATH WITH ANY ACTIVITY/OR VOCATIONAL EXERTION. PT DENIES ABDOMINAL PAIN, NAUSEA, CHEST PAIN, DYSURIA. Review of Systems General: No Chills; Fatigue HEENT: No Dysphasia Pulmonary: Dyspnea; No Cough Cardiovascular: No: Chest Pain, Palpitations Gastrointestinal: No: Nausea, Abdominal Pain Genitourinary: No Dysuria Musculoskeletal: No: back pain Neurological: Weakness; No: Confusion All Other Systems Reviewed All Other Systems Reviewed: Yes Objective Exam Vital Signs Vital Signs - First Documented 01/26/21 01/26/21 10:25 16:31 Temp 37.1 Pulse 102 Resp 32 B/P (MAP) 117/76 (90) Pulse Ox 92 O2 Delivery Nasal Cannula O2 Flow Rate 5.00 FiO2 32 Capillary Refill : Less Than 3 Seconds General Appearance: No Apparent Distress, Thin Eyes: Bilateral Eye Normal Inspection, Bilateral Eye PERRL, Bilateral Eye EOMI HEENT: PERRL/EOMI, Normal ENT Inspection, Pharynx Normal Neck: Full Range of Motion, Non Tender, Supple Respiratory: Chest Non Tender, No Accessory Muscle Use, No Respiratory Distress, Crackles (IN BASES), Decreased Breath Sounds, Other (DECREASED BREATH SOUNDS LEFT UPPER LOBE) Cardiovascular: No Edema, No Gallop, Normal Peripheral Pulses, Tachycardia Gastrointestinal: Normal Bowel Sounds, No Organomegaly, No Pulsatile Mass, Non Tender, Soft Rectal: Deferred Back: Normal Inspection, No CVA Tenderness, No Vertebral Tenderness Extremity: Normal Capillary Refill, Normal Inspection, Normal Range of Motion, Non Tender, No Calf Tenderness, No Pedal Edema Neurologic/Psychiatric: Alert, Oriented x3, No Motor/Sensory Deficits, 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, enterer II-XII Norm as Tested Skin: Normal Color, Warm/Dry Lymphatic: No Adenopathy Results Lab Laboratory Tests 01/26/21 10:45: White Blood Count 9.9, Red Blood Count 4.20, Hemoglobin 13.4, Hematocrit 42, Mean Corpuscular Volume 100H, Mean Corpuscular Hemoglobin 32, Mean Corpuscular Hemoglobin Concent 32, Red Cell Distribution Width 13.8, Platelet Count 169, Mean Platelet Volume 9.7, Immature Granulocyte % (Auto) 1, Neutrophils (%) (Auto) 93H, Lymphocytes (%) (Auto) 3L, Monocytes (%) (Auto) 2, Eosinophils (%) (Auto) 1, Basophils (%) (Auto) 0, Neutrophils # (Auto) 9.2H, Lymphocytes # (Auto) 0.3L, Monocytes # (Auto) 0.2, Eosinophils # (Auto) 0.1, Basophils # (Auto) 0.0, Immature Granulocyte # (Auto) 0.1, Neutrophils % (Manual) 84, Lymphocytes % (Manual) 5, Monocytes % (Manual) 1, Eosinophils % (Manual) 2, Basophils % (Manual) 0, Band Neutrophils 8, Blood Morphology Comment NORMAL, Sodium Level 139, Potassium Level 4.1, Chloride Level 98, Carbon Dioxide Level 27, Anion Gap 14, Blood Urea Nitrogen 13, Creatinine 0.61, Estimat Glomerular Filtration Rate > 60, BUN/Creatinine Ratio 21, Glucose Level 98, Lactic Acid Level 1.09, Calcium Level 9.7, Corrected Calcium 10.0, Total Bilirubin 0.6, Aspartate Amino Transf (AST/SGOT) 24, Alanine Aminotransferase (ALT/SGPT) 40, Alkaline Phosphatase 60, Total Protein 6.6, Albumin 3.6 01/27/21 05:50: White Blood Count 5.8, Red Blood Count 3.48L, Hemoglobin 11.1L, Hematocrit 35, Mean Corpuscular Volume 99, Mean Corpuscular Hemoglobin 32, Mean Corpuscular Hemoglobin Concent 32, Red Cell Distribution Width 13.6, Platelet Count 131, Mean Platelet Volume 9.5, Immature Granulocyte % (Auto) 1, Neutrophils (%) (Auto) 95H, Lymphocytes (%) (Auto) 3L, Monocytes (%) (Auto) 1, Eosinophils (%) (Auto) 0, Basophils (%) (Auto) 0, Neutrophils # (Auto) 5.6, Lymphocytes # (Auto) 0.2L, Monocytes # (Auto) 0.1, Eosinophils # (Auto) 0.0, Basophils # (Auto) 0.0, Immature Granulocyte # (Auto) 0.0, Sodium Level 139, Potassium Level 4.1, Chlori de Level 104, Carbon Dioxide Level 25, Anion Gap 10, Blood Urea Nitrogen 10, Creatinine 0.58L, Estimat Glomerular Filtration Rate > 60, BUN/Creatinine Ratio 17, Glucose Level 185H, Calcium Level 8.8 Assessment/Plan Assessment/Plan Admission Dx PNEUMONIA COPD EXACERBATION CHRONIC EMPHYSEMA CHRONIC COPD CHRONIC ATRIAL FIBRILLATION Assessment and Plan PNEUMONIA COPD EXACERBATION CHRONIC EMPHYSEMA CHRONIC COPD CHRONIC ATRIAL FIBRILLATION PNEUMONIA - PT STARTED ON HOSPITAL ACQUIRED PNEUMONIA PROTOCOL. COMPARISON: CT chest 05/22/2020 IMPRESSION: 1. Right lower lobe consolidation which could represent pneumonia. 2. No findings of pulmonary embolus. 3. Severe background emphysematous changes of both lungs with scattered areas of scarring. 4. Chronic pleural thickening or pleural fluid within the left upper lung. COPD EXACERBATION with CHRONIC EMPHYSEMA - STEROID INITIATED, MONITOR SYMPTOMS, RESUMED HOME REGIMEN CHRONIC ATRIAL FIBRILLATION - ATTEMPTED TO RESUME HOME REGIMEN - PT REPORTS THAT SHE "DOES NOT HAVE AFIB" AND STOPPED THE ELIQUIS AND CARDIZEM ON HER OWN AN OUTPATIENT. SHE REPORTS THAT SHE HAS "PALPITATIONS AND WILL TAKE METOPROLOL WHEN I FEEL LIKE IT IS GETTING OUT OF CONTROL." Admission Dx PNEUMONIA COPD EXACERBATION CHRONIC EMPHYSEMA CHRONIC COPD CHRONIC ATRIAL FIBRILLATION Lab results: Laboratory Tests Test 01/27/21 05:50 Range/Units White Blood Count 5.8 4.3-11.0 10^3/uL Red Blood Count 3.48 L 3.80-5.11 10^6/uL Hemoglobin 11.1 L 11.5-16.0 g/dL Hematocrit 35 35-52 % Mean Corpuscular Volume 99 80-99 fL Mean Corpuscular Hemoglobin 32 25-34 pg Mean Corpuscular Hemoglobin Concent 32 32-36 g/dL Red Cell Distribution Width 13.6 10.0-14.5 % Platelet Count 131 130-400 10^3/uL Mean Platelet Volume 9.5 9.0-12.2 fL Immature Granulocyte % (Auto) 1 % Neutrophils (%) (Auto) 95 H 42-75 % Lymphocytes (%) (Auto) 3 L 12-44 % Monocytes (%) (Auto) 1 0-12 % Eosinophils (%) (Auto) 0 0-10 % Basophils (%) (Auto) 0 0-10 % Neutrophils # (Auto) 5.6 1.8-7.8 10^3/uL Lymphocytes # (Auto) 0.2 L 1.0-4.0 10^3/uL Monocytes # (Auto) 0.1 0.0-1.0 10^3/uL Eosinophils # (Auto) 0.0 0.0-0.3 10^3/uL Basophils # (Auto) 0.0 0.0-0.1 10^3/uL Immature Granulocyte # (Auto) 0.0 0.0-0.1 10^3/uL Sodium Level 139 135-145 MMOL/L Potassium Level 4.1 3.6-5.0 MMOL/L Chloride Level 104 98-107 MMOL/L Carbon Dioxide Level 25 21-32 MMOL/L Anion Gap 10 5-14 MMOL/L Blood Urea Nitrogen 10 7-18 MG/DL Creatinine 0.58 L 0.60-1.30 MG/DL Estimat Glomerular Filtration Rate > 60 BUN/Creatinine Ratio 17 Glucose Level 185 H 70-105 MG/DL Calcium Level 8.8 8.5-10.1 MG/DL My orders: Orders - SHARA MEJIA MD Sodium Chloride Flush (Catheter Flush Sy (01/26/21 22:00) Sodium Chloride Flush (Catheter Flush Sy (01/26/21 15:00) Lactated Ringers (Lr 1000 Ml Iv Solution (01/26/21 15:00) Methylprednisolone Sod Succ (Solu-Medrol (01/26/21 18:00) Ceftriaxone (Rocephin) (01/26/21 16:00) Azithromycin Tablet (Zithromax Tablet) (01/26/21 16:00) Status Change To Inpatient (01/26/21 14:18) Admission Order(Inpt,Obs,Sdc) (01/26/21 14:18) Iv/Invasive Line Insertion .IV START (01/26/21 14:23) Activity UD (01/26/21 14:23) Cbc With Automated Diff (01/27/21 06:00) Intake & Output 06,14,22 (01/26/21 14:23) Mat Initiate Protocol (01/26/21 14:23) Rt Request For Service (01/26/21 14:23) Vital Signs: Every 4 Hours (Or Q4HR (01/26/21 14:23) Sodium 2g (2000 Mg) (01/26/21 Lunch) Basic Metabolic Panel (01/27/21 06:00) Ambulate UD (01/26/21 14:23) Ambulate 08,12,20 (01/26/21 14:23) Initiate Admission Nursing Pro .admission (01/26/21 14:23) Isolation Central Supply Req (01/26/21 14:23) Chest 1 View, Ap/Pa Only (01/27/21 08:00) Vital Signs Adult Sepsis Patie Q15M (01/26/21 14:23) Remove Rings In Anticipation O (01/26/21 14:23) Add [facility] Sepsis Care Plan .admit (01/26/21 14:23) Sputum Culture (01/26/21 14:23) Add [facility] Sepsis Care Plan .admit (01/26/21 14:58) Cefepime Injection (Maxipime Injection) (01/26/21 18:00) Vancomycin Injection (Vancomycin Injecti (01/27/21 00:00) Code/Resuscitation (01/26/21 16:05) Alprazolam Tablet (Xanax Tablet) (01/27/21 10:00) Aspirin Enteric Coated Tablet (Ecotrin T (01/27/21 21:00) Metoprolol Tartrate (Ir) Tab (Lopressor (01/27/21 18:00) Umeclidinium [place] Inhaler (Incruse El (01/27/21 10:00) Cholecalciferol Capsule/Tablet (Vitamin (01/27/21 21:00) Chest Pa/Lat (2 View) (01/28/21 06:00) Cbc No Diff (01/28/21 05:00) Comprehensive Metabolic Panel (01/28/21 05:00) Fluticasone/Salmeterol 232-14 (Airduo Re (01/27/21 10:27) General/Regular (01/27/21 Lunch) Incentive Spirometry Initial (01/27/21 10:45) Incentive Spirometry (Nursing) Q2H (01/27/21 10:45) Enoxaparin Injection (Lovenox Injection) (01/27/21 12:00) Clinical Quality Measures Admission Status Admission Dx PNEUMONIA COPD EXACERBATION CHRONIC EMPHYSEMA CHRONIC COPD CHRONIC ATRIAL FIBRILLATION SHARA MEJIA MD Jan 27, 2021 10:12
[2021-01-27] MEDS ORDERED: ENOXAPARIN 40 MG/0.4 ML (LOVENOX) SYR SQ SCH (10:45)
[2021-01-27] MEDS: RT--FLUTICASONE/SALMETEROL 232-14 (AIRDUO RespiCLICK) IH SCH ×2 (10:55→19:41)
[2021-01-27] MEDS: UMECLIDINIUM BROMIDE (INCRUSE ELLIPTA) 7'S IH SCH (10:55)
[2021-01-27 12:00] VITALS: BP 125/68
[2021-01-27] MEDS ORDERED: ENOXAPARIN 30 MG/0.3 ML (LOVENOX) SYR SQ SCH (12:00)
[2021-01-27 16:00] VITALS: BP 146/75
[2021-01-27] MEDS: meTOprolol TARTRATE 25 MG (LOPRESSOR) TABLET PO SCH (17:34)
[2021-01-27 19:59] VITALS: BP 135/83
[2021-01-27] MEDS: ALPRAZolam 0.5 MG (XANAX) TAB PO PRN (20:19)
[2021-01-27] MEDS: VITAMIN D3 25 MCG (1,000 UNITS) TABLET PO SCH (20:20)
[2021-01-27] MEDS ORDERED: ASPIRIN E.C. 325 MG (ECOTRIN) TABLET PO SCH (21:00)
[2021-01-27] MEDS ORDERED: NON-FORMULARY MEDICATION 1 EA EA (Cholecalciferol (Vitamin D3) (Vitamin D3) 50 MCG) PO SCH (21:00)
[2021-01-27] MEDS ORDERED: FUROSEMIDE 40 MG/4 ML INJ (LASIX) ONE (21:13)
[2021-01-27] MEDS ORDERED: FUROSEMIDE 40 MG/4 ML INJ (LASIX) IVP ONE (21:15)
[2021-01-27] MEDS ORDERED: meTOprolol TARTRATE 25 MG (LOPRESSOR) TABLET PO ONE (21:15)
[2021-01-27] MEDS: CATHETER FLUSH 10 ML SYR IV PRN (23:39)
[2021-01-28] MEDS: RT-ALBUTEROL/IPRATROPIUM 3 ML (DUONEB) VIAL INH SCH ×6 (02:25→21:55)
[2021-01-28 04:04] LABS: BASOPHILS % (AUTO) 0 % (0-10); EOSINOPHILS % (AUTO) 0 % (0-10); HEMATOCRIT 40 % (35-52); HEMOGLOBIN 12.9 g/dL (11.5-16.0); LYMPHOCYTES # (AUTO) 0.3 10^3/uL (1.0-4.0); LYMPHOCYTES % (AUTO) 2 % (12-44); MEAN CORPUSCULAR HEMOGLOBIN 32 pg (25-34); MEAN CORPUSCULAR HGB CONC 32 g/dL (32-36); MEAN CORPUSCULAR VOLUME 100 fL (80-99); MEAN PLATELET VOLUME 9.6 fL (9.0-12.2); MONOCYTES # (AUTO) 0.3 10^3/uL (0.0-1.0); MONOCYTES % (AUTO) 2 % (0-12); NEUTROPHILS # (AUTO) 13.8 10^3/uL (1.8-7.8); NEUTROPHILS % (AUTO) 96 % (42-75); PLATELET COUNT 176 10^3/uL (130-400); WHITE BLOOD COUNT 14.4 10^3/uL (4.3-11.0)
[2021-01-28 04:19] LABS: ALBUMIN 3.5 GM/DL (3.2-4.5)
[2021-01-28 04:20] LABS: CHLORIDE 102 MMOL/L (98-107); POTASSIUM 3.6 MMOL/L (3.6-5.0); SODIUM 143 MMOL/L (135-145)
[2021-01-28 04:21] LABS: CALCIUM 9.3 MG/DL (8.5-10.1)
[2021-01-28 04:22] LABS: GLUCOSE 163 MG/DL (70-105); TOTAL PROTEIN 6.4 GM/DL (6.4-8.2)
[2021-01-28 04:23] LABS: CARBON DIOXIDE 28 MMOL/L (21-32)
[2021-01-28 04:24] LABS: BILIRUBIN,TOTAL 0.2 MG/DL (0.1-1.0)
[2021-01-28 04:25] LABS: ALKALINE PHOSPHATASE 66 U/L (40-136); PHOSPHORUS 3.5 MG/DL (2.3-4.7)
[2021-01-28 04:26] LABS: CREATININE SERUM 0.66 MG/DL (0.60-1.30); GFR ESTIMATED > 60
[2021-01-28 04:27] LABS: BUN/CREATININE RATIO 15
[2021-01-28 04:28] LABS: ALANINE AMINOTRANSFERASE 56 U/L (0-55); MAGNESIUM 1.9 MG/DL (1.6-2.4)
[2021-01-28] MEDS: KCL 20 MEQ TAB (K-DUR) PO SCH (05:59)
[2021-01-28] MEDS: MAGNESIUM 1 GM/100 ML IVPB 100 ML IV SCH (05:59)
[2021-01-28] MEDS: POTASSIUM CL 10MEQ/50ML IVPB 50 ML IV SCH (05:59)
[2021-01-28] MEDS: methylPREDNISolone 125 MG (Solu-MEDROL) VIAL IVP SCH ×3 (06:36→15:44)
[2021-01-28] MEDS: CATHETER FLUSH 10 ML SYR IV SCH ×2 (06:36→10:27)
[2021-01-28] MEDS: CEFEPIME INJECTION 1,000 MG in WATER (STERILE) FOR INJECTION 10 ML IV SCH ×3 (06:36→15:44)
[2021-01-28] MEDS: UMECLIDINIUM BROMIDE (INCRUSE ELLIPTA) 7'S IH SCH (07:03)
[2021-01-28] MEDS: RT--FLUTICASONE/SALMETEROL 232-14 (AIRDUO RespiCLICK) IH SCH ×2 (07:04→17:56)
--- NOTE | 2021-01-28 08:48 | Progress Note ---
Subjective Subjective Date Seen by Provider: Jan 28, 2021 Time Seen by Provider: 08:40 OVERNIGHT THE PATIENT STARTED TO HAVE MORE DYSPNEA, WAS USING ACCESSORY RESPIRATORY MUSCLES, OXYGEN WAS 80% ON 6 LITERS NC. PT WAS TRANSFERRED UP TO THE ICU ON BIPAP, AND TRANSITIONED TO VAPOTHERM EARLY THIS MORNING. TODAY SHE STATES THAT SHE FEELS BETTER THIS MORNING THAN LAST NIGHT Review of Systems General: No Chills; Fatigue HEENT: No Dysphasia Pulmonary: Dyspnea; No Cough Cardiovascular: No: Chest Pain, Palpitations Gastrointestinal: No: Nausea, Abdominal Pain Genitourinary: No Dysuria Musculoskeletal: No: back pain Neurological: Weakness; No: Confusion All Other Systems Reviewed All Other Systems Reviewed: Yes Objective Exam Vital Signs Vital Signs - First Documented 01/26/21 01/26/21 10:25 16:31 Temp 37.1 Pulse 102 Resp 32 B/P (MAP) 117/76 (90) Pulse Ox 92 O2 Delivery Nasal Cannula O2 Flow Rate 5.00 FiO2 32 Capillary Refill : Less Than 3 Seconds General Appearance: No Apparent Distress, Thin Eyes: Bilateral Eye Normal Inspection, Bilateral Eye PERRL, Bilateral Eye EOMI HEENT: PERRL/EOMI, Normal ENT Inspection, Pharynx Normal Neck: Full Range of Motion, Non Tender, Supple Respiratory: Chest Non Tender, No Accessory Muscle Use, No Respiratory Distress, Crackles (IN BASES), Decreased Breath Sounds, Other (DECREASED BREATH SOUNDS LEFT UPPER LOBE) Cardiovascular: No Edema, No Gallop, Normal Peripheral Pulses, Tachycardia Gastrointestinal: Normal Bowel Sounds, No Organomegaly, No Pulsatile Mass, Non Tender, Soft Rectal: Deferred Back: Normal Inspection, No CVA Tenderness, No Vertebral Tenderness Extremity: Normal Capillary Refill, Normal Inspection, Normal Range of Motion, Non Tender, No Calf Tenderness, No Pedal Edema Neurologic/Psychiatric: Alert, Oriented x3, No Motor/Sensory Deficits, 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, supervisor typesetting II-XII Norm as Tested Skin: Normal Color, Warm/Dry Lymphatic: No Adenopathy Results Lab Laboratory Tests 01/28/21 03:45: White Blood Count 14.4H, Red Blood Count 4.03, Hemoglobin 12.9, Hematocrit 40, Mean Corpuscular Volume 100H, Mean Corpuscular Hemoglobin 32, Mean Corpuscular Hemoglobin Concent 32, Red Cell Distribution Width 13.7, Platelet Count 176, Mean Platelet Volume 9.6, Immature Granulocyte % (Auto) 1, Neutrophils (%) (Auto) 96H, Lymphocytes (%) (Auto) 2L, Monocytes (%) (Auto) 2, Eosinophils (%) (Auto) 0, Basophils (%) (Auto) 0, Neutrophils # (Auto) 13.8H, Lymphocytes # (Auto) 0.3L, Monocytes # (Auto) 0.3, Eosinophils # (Auto) 0.0, Basophils # (Auto) 0.0, Immature Granulocyte # (Auto) 0.1, Sodium Level 143, Potassium Level 3.6, Chloride Level 102, Carbon Dioxide Level 28, Anion Gap 13, Blood Urea Nitrogen 10, Creatinine 0.66, Estimat Glomerular Filtration Rate > 60, BUN/Creatinine Ratio 15, Glucose Level 163H, Calcium Level 9.3, Corrected Calcium 9.7, Phosphorus Level 3.5, Magnesium Level 1.9, Total Bilirubin 0.2, As partate Amino Transf (AST/SGOT) 32, Alanine Aminotransferase (ALT/SGPT) 56H, Alkaline Phosphatase 66, Total Protein 6.4, Albumin 3.5 Microbiology 01/26/21 Blood Culture - Preliminary, Resulted No growth Assessment/Plan Assessment/Plan Admission Dx PNEUMONIA COPD EXACERBATION CHRONIC EMPHYSEMA CHRONIC COPD CHRONIC ATRIAL FIBRILLATION Assessment and Plan PNEUMONIA COPD EXACERBATION CHRONIC EMPHYSEMA CHRONIC COPD CHRONIC ATRIAL FIBRILLATION PNEUMONIA - PT STARTED ON HOSPITAL ACQUIRED PNEUMONIA PROTOCOL. COMPARISON: CT chest 05/22/2020 IMPRESSION: 1. Right lower lobe consolidation which could represent pneumonia. 2. No findings of pulmonary embolus. 3. Severe background emphysematous changes of both lungs with scattered areas of scarring. 4. Chronic pleural thickening or pleural fluid within the left upper lung. COPD EXACERBATION with CHRONIC EMPHYSEMA - STEROID INITIATED, MONITOR SYMPTOMS, RESUMED HOME REGIMEN CHRONIC ATRIAL FIBRILLATION - ON ADMISSION I ATTEMPTED TO RESUME HOME REGIMEN - PT REPORTED THAT SHE "DOES NOT HAVE AFIB" AND STOPPED THE ELIQUIS AND CARDIZEM ON HER OWN AN OUTPATIENT. SHE REPORTS THAT SHE HAS "PALPITATIONS AND WILL TAKE METOPROLOL WHEN I FEEL LIKE IT IS GETTING OUT OF CONTROL." - DISCUSSED WITH PATIENT THAT SHE LIKELY HAS CHRONIC ATRIAL FIBRILLATION AND NEEDS TO ABIDE BY THE RECOMMENDATIONS OF CARDIOLOGY. - TODAY PT IS IN AGREEMENT TO START ON ORAL ANTICOAGULATION AND DEFER OTHER TREATMENT TO CARDIOLOGY. - CONSULT TO DR. LONDON. Admission Dx PNEUMONIA COPD EXACERBATION CHRONIC EMPHYSEMA CHRONIC COPD CHRONIC ATRIAL FIBRILLATION Clinical Quality Measures Admission Status Admission Dx PNEUMONIA COPD EXACERBATION CHRONIC EMPHYSEMA CHRONIC COPD CHRONIC ATRIAL FIBRILLATION SHARA MEJIA MD Jan 28, 2021 08:48
[2021-01-28] MEDS ORDERED: FUROSEMIDE 40 MG/4 ML INJ (LASIX) IVP ONE (09:00)
[2021-01-28] MEDS ORDERED: KCL 20 MEQ TAB (K-DUR) PO ONE ×2 (09:00)
[2021-01-28] MEDS: LACTATED RINGERS 1,000 ML IV SCH (09:19)
[2021-01-28] MEDS ORDERED: APIXABAN 5 MG (ELIQUIS) TABLET PO ONE (10:00)
--- NOTE | 2021-01-28 10:03 | Consultation-Cardiology ---
HPI-Cardiology Cardiology Consultation: Date of Consultation 01/28/21 Date of Admission Attending Physician Ana Laura Lewis MD Admitting Physician Obed Zelaya MD Consulting Physician MAGGIE LONDON JR, MD HPI: Time Seen by a Provider: 09:58 Chief Complaint: Reason for consultation: Atrial fibrillation. At the pleasure of seeing bernadette in the intensive care unit today. She is known to our service from previous hospitalizations. She had just been discharged from the hospital about 10 days ago after an exacerbation of her chronic obstructive pulmonary disease. At that time she was found to be in paroxysmal atrial fibrillation and Dr. Savage saw the patient and placed her on metoprolol and Eliquis. His plan was to perform an outpatient stress test and if this was negative, consider starting her on a type Ic antiarrhythmic drug after at least 30 days of anticoagulation. However, when the patient went home, she stopped her Eliquis and started taking the metoprolol as needed for palpitations. She states that she was taking both metoprolol and Cardizem and this was causing some problems with low blood pressures. On the day of admission she was developing increasing dyspnea on exertion. Just walking to her bathroom was making her short of breath. Then, she came back to the hospital. She denies any fever, chills, or cough. She does get some intermittent palpitations with the sensation of skipped beats or fluttering in her chest. She denies chest discomfort, paroxysmal nocturnal dyspnea, orthopnea, lightheadedness, syncope, or lower extremity edema. When she was admitted she was in sinus tachycardia however, last evening, she went into atrial fibrillation and as such, a cardiology consultation was requested. Review of Systems-Cardiology Review of Systems Other comments Review of 10 organ systems is as per the history of present illness, otherwise negative. 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 Family Medical History Family History: Cardiovascular disease 19 MOTHER G8 SISTER Completed stroke 19 MOTHER Parkinson's disease 19 FATHER Allergies and Home Medications Allergies Coded Allergies: No Known Drug Allergies (Verified , 04/05/15) Home Medications Albuterol Sulfate 18 Gm Hfa.aer.ad, 2 PUFF INH Q4H PRN for SHORTNESS OF BREATH, (Reported) Last Action: Reviewed Albuterol Sulfate 2.5 Mg/0.5 Ml Vial.neb, 2.5 MG INH Q6H PRN for SHORTNESS OF BREATH, (Reported) Last Action: Reviewed Alprazolam 0.5 Mg Tablet, 0.5 MG PO BID PRN for ANXIETY, (Reported) Last Action: Continued Aspirin 325 Mg Tablet.dr, 325 MG PO HS, (Reported) Last Action: Continued Cholecalciferol (Vitamin D3) 50 Mcg Capsule, 50 MCG PO HS, (Reported) Last Action: Converted Fluticasone/Vilanterol 1 Each Blst.w.dev, 1 PUFF INH DAILY, (Reported) Last Action: Continued Metoprolol Tartrate 25 Mg Tablet, 6.25 MG PO DAILY, (Reported) TAKES OF A 25MG TAB Last Action: Reviewed Metoprolol Tartrate 25 Mg Tablet, 12.5 MG PO 1800, (Reported) TAKES OF A 25MG Last Action: Continued Umeclidinium [place] 62.5 Mcg Blst.w.dev, 1 PUFF INH DAILY, (Reported) Last Action: Continued Patient Home Medication List Home Medication List Reviewed: Yes Physical Exam-Cardiology Physical Exam Vital Signs/I&O 01/27/21 01/27/21 01/27/21 01/27/21 22:00 22:08 22:15 22:30 Temp 36.0 Pulse 113 114 129 101 Resp 26 24 28 26 B/P (MAP) 102/89 (93) 108/63 (78) 106/73 (84) Pulse Ox 98 100 100 100 O2 Delivery NIV Bilevel NIV Bilevel NIV Bilevel O2 Flow Rate 100.00 100.00 100.00 100.00 01/27/21 01/27/21 01/27/21 01/27/21 22:37 22:45 23:00 23:30 Pulse 103 101 93 96 Resp 26 24 24 B/P (MAP) 106/71 (83) 100/72 (81) 100/64 (76) Pulse Ox 100 100 100 O2 Delivery NIV Bilevel NIV Bilevel NIV Bilevel O2 Flow Rate 100.00 100.00 100.00 01/27/21 01/28/21 01/28/21 01/28/21 23:42 00:00 00:00 00:24 Temp 36.1 Pulse 84 Resp 23 B/P (MAP) 109/73 (85) Pulse Ox 100 100 O2 Delivery NIV Bilevel NIV Bilevel NIV Bilevel NIV Bilevel O2 Flow Rate 80.00 80.00 70.00 FiO2 80 01/28/21 01/28/21 01/28/21 01/28/21 01:00 01:00 01:22 02:00 Pulse 70 76 67 Resp 24 20 B/P (MAP) 128/76 (93) 112/68 (83) Pulse Ox 100 100 O2 Delivery NIV Bilevel NIV Bilevel NIV Bilevel O2 Flow Rate 70.00 60.00 60.00 01/28/21 01/28/21 01/28/21 01/28/21 02:26 02:42 03:00 03:08 Pulse 69 63 Resp 22 21 B/P (MAP) 127/78 (94) Pulse Ox 100 99 100 O2 Delivery NIV Bilevel NIV Bilevel NIV Bilevel O2 Flow Rate 50.00 50.00 50.00 50.00 01/28/21 01/28/21 01/28/21 01/28/21 03:42 03:56 04:00 04:25 Temp 36.0 Pulse 67 Resp 24 B/P (MAP) 107/81 (90) Pulse Ox 100 98 O2 Delivery NIV Bilevel NIV Bilevel NIV Bilevel Vapotherm O2 Flow Rate 45.00 45.00 20.00 45.00 FiO2 45 01/28/21 01/28/21 01/28/21 01/28/21 04:27 05:00 06:00 06:38 Pulse 61 50 Resp 22 22 B/P (MAP) 95/56 (69) 93/52 (66) Pulse Ox 95 96 96 O2 Delivery Vapotherm Vapotherm Vapotherm Vapotherm O2 Flow Rate 20.00 20.00 20.00 15.00 45.00 45.00 45.00 FiO2 45 01/28/21 01/28/21 01/28/21 01/28/21 07:00 07:00 07:05 07:07 Pulse 65 59 Resp 26 B/P (MAP) 100/78 (85) Pulse Ox 90 95 O2 Delivery Vapotherm Vapotherm Vapotherm O2 Flow Rate 15.00 20.00 45.00 FiO2 45 01/28/21 01/28/21 01/28/21 01/28/21 07:08 08:00 08:00 09:00 Pulse 93 97 Resp 33 29 B/P (MAP) 101/86 (91) 97/65 (76) Pulse Ox 93 95 91 90 O2 Delivery Vapotherm Vapotherm Vapotherm Vapotherm O2 Flow Rate 20.00 15.00 15.00 45.00 45.00 FiO2 45 01/28/21 00:00 Intake Total 760 ml Balance 760 ml Capillary Refill : Less Than 3 Seconds Constitutional: appears stated age, AAO x 3, other (She appears somewhat cachectic.She is in no acute distress.) HEENT: other (She is normocephalic and atraumatic. Extraocular movements are intact. There are no xanthelasma. Sclera are clear.) Neck: non-tender, full range of motion, supple, normal inspection, carotid pulses are 2 + bilaterally, with good upstrokes Respiratory: other (There is good respiratory effort with symmetrical expansion bilaterally. There are diffusely decreased breath sounds. There are some dry crackles at the right base.) Cardiovascular: irregularly irregular, other (There is a 2/6 systolic ejection murmur. No rubs or gallops appreciated.) Gastrointestinal: other (The abdomen is soft, nontender and nondistended.) Rectal: deferred Extremities: normal range of motion, non-tender, normal inspection, no lower extremity edema bilateral Neurologic/Psychiatric: normal mood/affect, other (The patient is alert and oriented x3. Cranial nerves III through XII are grossly intact. The patient has good motor tone and strength in the upper and lower extremities bilaterally.) Skin: normal color, warm/dry Data Review Labs Laboratory Tests 01/28/21 03:45: White Blood Count 14.4H, Red Blood Count 4.03, Hemoglobin 12.9, Hematocrit 40, Mean Corpuscular Volume 100H, Mean Corpuscular Hemoglobin 32, Mean Corpuscular Hemoglobin Concent 32, Red Cell Distribution Width 13.7, Platelet Count 176, Mean Platelet Volume 9.6, Immature Granulocyte % (Auto) 1, Neutrophils (%) (Auto) 96H, Lymphocytes (%) (Auto) 2L, Monocytes (%) (Auto) 2, Eosinophils (%) (Auto) 0, Basophils (%) (Auto) 0, Neutrophils # (Auto) 13.8H, Lymphocytes # (Auto) 0.3L, Monocytes # (Auto) 0.3, Eosinophils # (Auto) 0.0, Basophils # (Auto) 0.0, Immature Granulocyte # (Auto) 0.1, Sodium Level 143, Potassium Level 3.6, Chloride Level 102, Carbon Dioxide Level 28, Anion Gap 13, Blood Urea Nitrogen 10, Creatinine 0.66, Estimat Glomerular Filtration Rate > 60, BUN/Creatinine Ratio 15, Glucose Level 163H, Calcium Level 9.3, Corrected Calcium 9.7, Phosphorus Level 3.5, Magnesium Level 1.9, Total Bilirubin 0.2, Aspartate Amino Transf (AST/SGOT) 32, Alanine Aminotransferase (ALT/SGPT) 56H, Alkaline Phosphatase 66, Total Protein 6.4, Albumin 3.5 Microbiology 01/26/21 Blood Culture - Preliminary, Resulted No growth ECG Impression ECG Comment Atrial fibrillation with a rapid ventricular rate with nonspecific intraventricular conduction delay and diffusely low voltages. A/P-Cardiology Assessment/Admission Diagnosis Atrial fibrillation, persistent. She now has recurrent atrial fibrillation. This may be somewhat difficult to maintain sinus rhythm given her underlying lung disease. However, the fact that she was in a sinus mechanism on admission is a little bit reassuring. However, she is not taking her medications as ordered. Her metoprolol has been resumed by the [facility] hospital physician. I will restart her Eliquis. Although she is less than 60 kg, her creatinine is less than 1.5 and she is less than the age of 78, therefore, she does not need a reduced dose of Eliquis. I told her that when she is discharged, she needs to be compliant with these 2 medications. I also told her not to take her diltiazem when she goes home. This could cause iatrogenic hypotension. Once she is discharged, we will consider an outpatient stress test and then follow-up with Dr. Savage to discuss long-term management of the atrial fibrillation Since I will be restarting Eliquis, I have stopped her aspirin.. Acute on chronic respiratory failure with hypoxia. This is most likely related to her underlying chronic obstructive pulmonary disease. She had an echocardiogram in September 2020 and by report, there was not any structural heart disease to explain respiratory failure. Palpitations. She does have intermittent palpitations. I suspect this may be related to the atrial fibrillation as well as intermittent ventricular premature complexes she is known to have in the past. She seems to be responding to beta- sean in terms of her symptoms. I encouraged her to take this twice a day as ordered. Medication noncompliance. I stressed to the patient the importance of taking her medication as prescribed. I told her that if she does not take her blood thinner as ordered, this could put her at risk of developing a stroke. Plan See above MAGGIE LONDON JR, MD Jan 28, 2021 10:03
--- NOTE | 2021-01-28 10:04 | Diagnostic Imaging Report ---
EXAMINATION: Chest 1 view HISTORY: Shortness of breath COMPARISON: Chest radiograph 01/27/2021, CTA chest 01/26/2021 FINDINGS: Heart size and pulmonary vasculature are stable. Stable background chronic lung disease. Mildly increased bibasilar airspace opacities. Stable biapical consolidation or scarring, left greater than right. No pneumothorax. Degenerative changes of the thoracic spine. Osseous structures are otherwise intact. IMPRESSION: 1. Mildly increased opacities within the lung bases which could represent superimposed atelectasis or consolidation. 2. Background chronic lung disease. Dictated by: Dictated on workstation # [id number]
--- NOTE | 2021-01-28 10:34 | Pulmonary Progress Note ---
Subjective Date Seen by a Provider: Jan 28, 2021 Time Seen by a Provider: 10:05 Subjective/Events-last exam Rounded virtually with Evy GRIFFIN: Off BiPAP and on vapotherm 20 L 45%. VSS. Doing better. AM labs unremarkable x WCC 14.4. Review of Systems See freetext note Sepsis Event Evaluation Sepsis Stage: Ruled Out Possible Source: Other Height, Weight, BMI Height: 5'2.00" Weight: 100lbs. 3.0oz. 45.542377lz; 16.04 BMI Method:Stated Bedside Monitoring CVP Measures: 8-12 ScvO2 measures: Greater than 70% Bedside Ultrasound Performed: No Passive Leg Raise/Fluid Bolus: Fluid Responsive Focused Exam Sepsis Stage: Ruled Out Possible Source: Other Lactate Level 01/26/21 10:45: Lactic Acid Level 1.09 Respiratory: Lungs Clear Cardiovascular: Regular Rate, Rhythm Peripheral Pulses: 2+ Dorsalis Pedis (R), 2+ Left Dors-Pedis (L) Skin: normal color Within 3hrs of presentation: Blood cultures prior to ABX's Exam Exam Patient acknowledged, consented, and participated in this virtual visit which was conducted using real time audio/video Vital Signs Date Time Temp Pulse Resp B/P (MAP) Pulse Ox O2 Delivery O2 Flow Rate FiO2 01/28/21 10:00 104 16 115/95 (102) 94 Vapotherm 15.00 45.00 01/28/21 09:00 97 29 97/65 (76) 90 Vapotherm 15.00 45.00 01/28/21 08:00 93 33 101/86 (91) 91 Vapotherm 15.00 45.00 01/28/21 08:00 95 Vapotherm 01/28/21 07:08 93 Vapotherm 20.00 45 01/28/21 07:07 Vapotherm 01/28/21 07:05 95 Vapotherm 20.00 45 01/28/21 07:00 59 01/28/21 07:00 65 26 100/78 (85) 90 Vapotherm 15.00 45.00 01/28/21 06:38 Vapotherm 15.00 45.00 01/28/21 06:00 50 22 93/52 (66) 96 Vapotherm 20.00 45.00 01/28/21 05:00 61 22 95/56 (69) 96 Vapotherm 20.00 45.00 01/28/21 04:27 95 Vapotherm 20.00 45 01/28/21 04:25 36.0 Vapotherm 20.00 45.00 01/28/21 04:00 67 24 107/81 (90) 98 NIV Bilevel 45.00 01/28/21 03:56 100 NIV Bilevel 45 01/28/21 03:42 NIV Bilevel 45.00 01/28/21 03:08 63 21 100 50.00 01/28/21 03:00 69 22 127/78 (94) 99 NIV Bilevel 50.00 01/28/21 02:42 NIV Bilevel 50.00 01/28/21 02:26 100 NIV Bilevel 50.00 01/28/21 02:00 67 20 112/68 (83) 100 NIV Bilevel 60.00 01/28/21 01:22 NIV Bilevel 60.00 01/28/21 01:00 76 01/28/21 01:00 70 24 128/76 (93) 100 NIV Bilevel 70.00 01/28/21 00:24 NIV Bilevel 70.00 01/28/21 00:00 100 NIV Bilevel 80 01/28/21 00:00 84 23 109/73 (85) 100 NIV Bilevel 80.00 01/27/21 23:42 36.1 NIV Bilevel 80.00 01/27/21 23:30 96 24 100/64 (76) 100 NIV Bilevel 100.00 01/27/21 23:00 93 24 100/72 (81) 100 NIV Bilevel 100.00 01/27/21 22:45 101 26 106/71 (83) 100 NIV Bilevel 100.00 01/27/21 22:37 103 01/27/21 22:30 101 26 106/73 (84) 100 NIV Bilevel 100.00 01/27/21 22:15 129 28 108/63 (78) 100 NIV Bilevel 100.00 01/27/21 22:08 36.0 114 24 102/89 (93) 100 NIV Bilevel 100.00 01/27/21 22:00 113 26 98 100.00 01/27/21 21:56 100 NIV Bilevel 100 01/27/21 21:40 85 Nasal Cannula 5.00 01/27/21 20:00 Nasal Cannula 4.00 01/27/21 19:59 36.1 110 18 135/83 (100) 92 Nasal Cannula 4.00 01/27/21 19:45 92 Nasal Cannula 4.00 01/27/21 19:42 92 Nasal Cannula 4.00 01/27/21 16:00 36.3 127 18 146/75 (98) 92 Nasal Cannula 4.00 01/27/21 14:49 95 Nasal Cannula 4.00 01/27/21 12:00 36.5 99 20 125/68 (87) 91 Nasal Cannula 4.00 I & O 01/28/21 07:00 Intake Total 1920 ml Output Total 1150 ml Balance 770 ml Height & Weight Height: 5'2.00" Weight: 100lbs. 3.0oz. 45.035113pv; 16.04 BMI Method:Stated General Appearance: No Apparent Distress, Thin HEENT: PERRL/EOMI, Normal ENT Inspection, Pharynx Normal Neck: Full Range of Motion, Non Tender, Supple Respiratory: Chest Non Tender, No Accessory Muscle Use, No Respiratory Distress, Crackles (IN BASES), Decreased Breath Sounds, Other (DECREASED BREATH SOUNDS LEFT UPPER LOBE) Cardiovascular: No Edema, No Gallop, Normal Peripheral Pulses, Tachycardia Capillary Refill: Less Than 3 Seconds Gastrointestinal: normal bowel sounds, non tender Extremity: Normal Capillary Refill, Normal Inspection, Normal Range of Motion, Non Tender, No Calf Tenderness, No Pedal Edema Neurologic/Psychiatric: Alert, Oriented x3, No Motor/Sensory Deficits, 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
[2021-01-28] MEDS: VANCOMYCIN INJECTION 500 MG in NS (IVPB) 100 ML IV SCH (14:27)
[2021-01-28] MEDS: meTOprolol TARTRATE 25 MG (LOPRESSOR) TABLET PO SCH (15:44)
[2021-01-28] MEDS: VITAMIN D3 25 MCG (1,000 UNITS) TABLET PO SCH (20:07)
[2021-01-28] MEDS: APIXABAN 5 MG (ELIQUIS) TABLET PO SCH (20:08)
[2021-01-28] MEDS: ALPRAZolam 0.5 MG (XANAX) TAB PO PRN (20:08)
[2021-01-29] MEDS: CATHETER FLUSH 10 ML SYR IV SCH ×4 (00:22→22:58)
[2021-01-29] MEDS: methylPREDNISolone 125 MG (Solu-MEDROL) VIAL IVP SCH ×4 (00:23→19:15)
[2021-01-29] MEDS: VANCOMYCIN INJECTION 500 MG in NS (IVPB) 100 ML IV SCH (00:23)
[2021-01-29] MEDS: CEFEPIME INJECTION 1,000 MG in WATER (STERILE) FOR INJECTION 10 ML IV SCH ×4 (00:23→22:58)
[2021-01-29] MEDS: RT-ALBUTEROL/IPRATROPIUM 3 ML (DUONEB) VIAL INH SCH ×6 (01:55→21:52)
[2021-01-29] MEDS ORDERED: NS 500 ML IV BAG IV ONE (02:45)
--- NOTE | 2021-01-29 02:57 | Pulmonary Progress Note ---
Subjective Date Seen by a Provider: Jan 29, 2021 Time Seen by a Provider: 02:31 Subjective/Events-last exam EICU Brief note--Nursing called because pt's UO has dropped off during past shift, not receiving IVFs, and oral intake has been very low last 24 hours. Sepsis Event Evaluation Height, Weight, BMI Height: 5'2.00" Weight: 100lbs. 3.0oz. 45.007279ue; 16.04 BMI Method:Stated Focused Exam Lactate Level 01/26/21 10:45: Lactic Acid Level 1.09 Exam Exam Video, monitors and chart reviewed Vital Signs Date Time Temp Pulse Resp B/P (MAP) Pulse Ox O2 Delivery O2 Flow Rate FiO2 01/29/21 02:10 103 25 88 Vapotherm 20.00 40.00 01/29/21 02:00 76 38 119/70 (86) 93 Vapotherm 15.00 35.00 01/29/21 01:55 92 Vapotherm 15.00 40 01/29/21 01:40 92 Vapotherm 15.00 35.00 01/29/21 01:00 77 19 119/76 (90) 95 Vapotherm 20.00 40.00 01/29/21 01:00 77 01/29/21 00:00 86 22 119/67 (84) 94 Vapotherm 20.00 40.00 01/29/21 00:00 36.0 01/28/21 23:00 100 24 127/63 (84) 90 Vapotherm 20.00 40.00 01/28/21 22:00 98 28 127/66 (86) 91 Vapotherm 20.00 40.00 01/28/21 21:58 Vapotherm 20.00 50.00 01/28/21 21:55 97 Vapotherm 20.00 40 01/28/21 21:00 92 24 128/55 (79) 96 Vapotherm 20.00 60.00 01/28/21 20:00 96 36 123/62 (82) 96 Vapotherm 20.00 60.00 01/28/21 19:23 36.6 01/28/21 19:16 104 26 130/80 (97) 95 Vapotherm 20.00 60.00 01/28/21 19:00 111 38 113/75 (88) 96 Vapotherm 20.00 100.00 01/28/21 19:00 111 01/28/21 18:00 93 28 115/59 (77) 93 Vapotherm 20.00 100.00 01/28/21 17:56 93 Vapotherm 20.00 60 01/28/21 17:00 93 123/92 (102) 98 Vapotherm 20.00 100.00 01/28/21 16:00 101 111/68 (82) 95 Vapotherm 20.00 100.00 01/28/21 15:57 36.6 01/28/21 15:00 112 118/79 (92) 99 Vapotherm 20.00 100.00 01/28/21 14:26 95 Vapotherm 20.00 90 01/28/21 14:00 113 25 115/84 (94) 92 Vapotherm 20.00 100.00 01/28/21 13:00 92 28 120/67 (84) 90 Vapotherm 20.00 100.00 01/28/21 12:27 112 01/28/21 12:00 85 108/70 (83) Vapotherm 20.00 100.00 01/28/21 11:00 108 28 116/80 (92) 89 Vapotherm 20.00 100.00 01/28/21 10:51 94 Vapotherm 20.00 100 01/28/21 10:46 Vapotherm 20.00 100.00 01/28/21 10:32 89 Vapotherm 20.00 45 01/28/21 10:00 104 16 115/95 (102) 94 Vapotherm 15.00 45.00 01/28/21 09:00 97 29 97/65 (76) 90 Vapotherm 15.00 45.00 01/28/21 08:00 93 33 101/86 (91) 91 Vapotherm 15.00 45.00 01/28/21 08:00 95 Vapotherm 01/28/21 07:08 93 Vapotherm 20.00 45 01/28/21 07:07 Vapotherm 01/28/21 07:05 95 Vapotherm 20.00 45 01/28/21 07:00 59 01/28/21 07:00 65 26 100/78 (85) 90 Vapotherm 15.00 45.00 01/28/21 06:38 Vapotherm 15.00 45.00 01/28/21 06:00 50 22 93/52 (66) 96 Vapotherm 20.00 45.00 01/28/21 05:00 61 22 95/56 (69) 96 Vapotherm 20.00 45.00 01/28/21 04:27 95 Vapotherm 20.00 45 01/28/21 04:25 36.0 Vapotherm 20.00 45.00 01/28/21 04:00 67 24 107/81 (90) 98 NIV Bilevel 45.00 01/28/21 03:56 100 NIV Bilevel 45 01/28/21 03:42 NIV Bilevel 45.00 01/28/21 03:08 63 21 100 50.00 01/28/21 03:00 69 22 127/78 (94) 99 NIV Bilevel 50.00 I & O 01/29/21 07:00 Intake Total 1090 ml Output Total 790 ml Balance 300 ml General Appearance: No Apparent Distress, Thin HEENT: PERRL/EOMI, Normal ENT Inspection, Pharynx Normal Neck: Full Range of Motion, Non Tender, Supple Respiratory: Chest Non Tender, No Accessory Muscle Use, No Respiratory Distress, Crackles (IN BASES), Decreased Breath Sounds, Other (DECREASED BREATH SOUNDS LEFT UPPER LOBE) Cardiovascular: No Edema, No Gallop, Normal Peripheral Pulses, Tachycardia Capillary Refill: Less Than 3 Seconds Gastrointestinal: normal bowel sounds, non tender Extremity: Normal Capillary Refill, Normal Inspection, Normal Range of Motion, Non Tender, No Calf Tenderness, No Pedal Edema Neurologic/Psychiatric: Alert, Oriented x3, No Motor/Sensory Deficits, 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 Results Lab Laboratory Tests 01/27/21 05:50 Meds HR sinus tach 110 Assessment/Plan Assessment/Plan Oliguria likely due to hypovolemia. Will give a bolus 500 mls NS over next 2 hours and monitor UO. ISH SEARS DO Jan 29, 2021 02:57
[2021-01-29] MEDS: POTASSIUM CL 10MEQ/50ML IVPB 50 ML IV SCH (03:42)
[2021-01-29] MEDS: KCL 20 MEQ TAB (K-DUR) PO SCH (03:42)
[2021-01-29] MEDS: MAGNESIUM 1 GM/100 ML IVPB 100 ML IV SCH (03:42)
[2021-01-29 04:11] LABS: BASOPHILS % (AUTO) 0 % (0-10); EOSINOPHILS % (AUTO) 0 % (0-10); HEMATOCRIT 36 % (35-52); HEMOGLOBIN 11.4 g/dL (11.5-16.0); LYMPHOCYTES # (AUTO) 0.2 10^3/uL (1.0-4.0); LYMPHOCYTES % (AUTO) 2 % (12-44); MEAN CORPUSCULAR HEMOGLOBIN 32 pg (25-34); MEAN CORPUSCULAR HGB CONC 31 g/dL (32-36); MEAN CORPUSCULAR VOLUME 101 fL (80-99); MEAN PLATELET VOLUME 9.8 fL (9.0-12.2); MONOCYTES # (AUTO) 0.1 10^3/uL (0.0-1.0); MONOCYTES % (AUTO) 1 % (0-12); NEUTROPHILS # (AUTO) 9.3 10^3/uL (1.8-7.8); NEUTROPHILS % (AUTO) 96 % (42-75); PLATELET COUNT 154 10^3/uL (130-400); WHITE BLOOD COUNT 9.7 10^3/uL (4.3-11.0)
[2021-01-29 04:22] LABS: CHLORIDE 102 MMOL/L (98-107); SODIUM 142 MMOL/L (135-145)
[2021-01-29 04:24] LABS: GLUCOSE 231 MG/DL (70-105)
[2021-01-29 04:26] LABS: CARBON DIOXIDE 25 MMOL/L (21-32)
[2021-01-29 04:28] LABS: CREATININE SERUM 0.66 MG/DL (0.60-1.30); GFR ESTIMATED > 60; PHOSPHORUS 1.6 MG/DL (2.3-4.7)
[2021-01-29 04:29] LABS: BUN/CREATININE RATIO 26
[2021-01-29 04:30] LABS: MAGNESIUM 1.8 MG/DL (1.6-2.4)
[2021-01-29] MEDS: ALPRAZolam 0.5 MG (XANAX) TAB PO PRN ×2 (04:41→20:39)
[2021-01-29] MEDS: UMECLIDINIUM BROMIDE (INCRUSE ELLIPTA) 7'S IH SCH (06:28)
[2021-01-29] MEDS: RT--FLUTICASONE/SALMETEROL 232-14 (AIRDUO RespiCLICK) IH SCH ×2 (06:28→21:53)
[2021-01-29 07:47] VITALS: BP 115/88
[2021-01-29] MEDS: APIXABAN 5 MG (ELIQUIS) TABLET PO SCH ×2 (08:05→20:38)
--- NOTE | 2021-01-29 10:06 | Cardiology Progress Note ---
Subjective Date Seen by Provider: Jan 29, 2021 Time Seen by Provider: 10:04 Subjective/Events-last exam We are seeing her due to paroxysmal atrial fibrillation. She was sitting up in bed talking on the phone. She states her breathing has improved. She denies chest pain, palpitations, syncope, or lower extremity edema. Focused Exam Lactate Level 01/26/21 10:45: Lactic Acid Level 1.09 Objective-Cardiology Exam Last Set of Vital Signs Vital Signs 01/29/21 01/29/21 01/29/21 07:47 08:13 09:00 Temp 36.4 Pulse 112 Resp 26 B/P (MAP) 128/62 (84) Pulse Ox 98 O2 Delivery Vapotherm O2 Flow Rate 20.00 40.00 FiO2 40 Capillary Refill : Less Than 3 Seconds I&O Intake and Output 01/29/21 00:00 Intake Total 1250 ml Output Total 1835 ml Balance -585 ml Intake Oral 1140 ml IV Total 110 ml Output Urine Total 1835 ml General: Alert, Oriented X3, Cooperative, No Acute Distress HEENT: Atraumatic, EOMI Neck: Supple, No JVD Lungs: Other (Diffusely decreased breath sounds with scattered wheezes bilaterally.) Heart: Other (Tachycardia with a regular rhythm. 2/6 systolic ejection murmur. No rubs or gallops appreciated.) Abdomen: Normal Bowel Sounds, Soft Extremities: No Clubbing, No Cyanosis Skin: No Rashes Neuro: Normal Speech, Cranial Nerves 3-12 NL Psych/Mental Status: Mental Status NL, Mood NL Results Lab Laboratory Tests 01/29/21 03:54 A/P-Cardiology Admission Diagnosis (1) Sinus tachycardia Assessment & Plan: This morning she has sinus tachycardia. I suspect this is a reactive tachycardia secondary to her chronic obstructive pulmonary disease exacerbation. I would be hesitant to treat this with medication or we could cause iatrogenic hypotension. She is asymptomatic with this. For unclear reasons, she has been taking her metoprolol tartrate once a day here in the hospital. She was noncompliant with this medication at home. When she was taking diltiazem at home, she said this was causing hypotension. I will change her metoprolol tartrate to 12.5 mg twice a day. I do not want to place patient on diltiazem infusion. (2) Persistent atrial fibrillation Status: Chronic Assessment & Plan: As above, she is now in sinus tachycardia. However, she has had documented paroxysmal atrial fibrillation. I will adjust her beta-sean as above. She should continue on apixaban for stroke prophylaxis. At some point, her primary worship leader is planning on an outpatient stress test to see if she might be a candidate for a type Ic antiarrhythmic drug. This should be done after the patient recovers from her acute respiratory decompensation. (3) Acute and chronic respiratory failure with hypoxia Assessment & Plan: Most likely related to her chronic obstructive pulmonary disease with an acute exacerbation. The covering hospital physician is managing this as well eICU. (4) Palpitations Status: Chronic Assessment & Plan: Most likely related to atrial fibrillation, known ventricul ar premature complexes and possibly sinus tachycardia. We will continue beta- sean as above. (5) Noncompliance with medication regimen Status: Acute Assessment & Plan: I again stressed to the patient the importance of following her prescribed medical regimen when she is discharged. She had previously stopped her apixaban and metoprolol. She was taking metoprolol as needed for palpitations. MAGGIE LONDON JR, MD Jan 29, 2021 10:06
[2021-01-29] MEDS: meTOprolol TARTRATE 25 MG (LOPRESSOR) TABLET PO SCH ×2 (10:27→20:39)
--- NOTE | 2021-01-29 12:06 | Pulmonary Progress Note ---
Subjective Date Seen by a Provider: Jan 29, 2021 Time Seen by a Provider: 12:05 Sepsis Event Evaluation Height, Weight, BMI Height: 5'2.00" Weight: 100lbs. 3.0oz. 45.633123nf; 16.04 BMI Method:Stated Exam Exam Patient acknowledged, consented, and participated in this virtual visit which was conducted using real time audio/video Vital Signs Date Time Temp Pulse Resp B/P (MAP) Pulse Ox O2 Delivery O2 Flow Rate FiO2 01/29/21 11:22 36.4 01/29/21 11:00 131 34 140/75 (96) 95 Vapotherm 20.00 40.00 01/29/21 10:15 96 Vapotherm 25.00 45 01/29/21 10:00 118 28 131/69 (89) 92 Vapotherm 20.00 40.00 01/29/21 09:00 112 26 128/62 (84) 98 Vapotherm 20.00 40.00 01/29/21 08:13 91 Vapotherm 20.00 40 01/29/21 08:00 130 34 145/76 (99) 91 Vapotherm 20.00 40.00 01/29/21 07:47 36.4 99 95 45 01/29/21 07:41 36.4 01/29/21 07:00 130 28 152/72 (98) 90 Vapotherm 20.00 40.00 01/29/21 06:44 102 01/29/21 06:25 95 Vapotherm 25.00 45 01/29/21 06:00 96 23 115/88 (97) 96 Vapotherm 20.00 40.00 01/29/21 05:00 97 33 142/74 (96) 98 Vapotherm 20.00 40.00 01/29/21 04:43 111 98 Vapotherm 25.00 50.00 01/29/21 04:00 109 34 141/65 (90) 88 Vapotherm 20.00 40.00 01/29/21 03:00 110 36 134/81 (98) 92 Vapotherm 20.00 40.00 01/29/21 02:10 103 25 88 Vapotherm 20.00 40.00 01/29/21 02:00 76 38 119/70 (86) 93 Vapotherm 15.00 35.00 01/29/21 01:55 92 Vapotherm 15.00 40 01/29/21 01:40 92 Vapotherm 15.00 35.00 01/29/21 01:00 77 19 119/76 (90) 95 Vapotherm 20.00 40.00 01/29/21 01:00 77 01/29/21 00:00 86 22 119/67 (84) 94 Vapotherm 20.00 40.00 01/29/21 00:00 36.0 01/28/21 23:00 100 24 127/63 (84) 90 Vapotherm 20.00 40.00 01/28/21 22:00 98 28 127/66 (86) 91 Vapotherm 20.00 40.00 01/28/21 21:58 Vapotherm 20.00 50.00 01/28/21 21:55 97 Vapotherm 20.00 40 01/28/21 21:00 92 24 128/55 (79) 96 Vapotherm 20.00 60.00 01/28/21 20:00 96 36 123/62 (82) 96 Vapotherm 20.00 60.00 01/28/21 19:23 36.6 01/28/21 19:16 104 26 130/80 (97) 95 Vapotherm 20.00 60.00 01/28/21 19:00 111 38 113/75 (88) 96 Vapotherm 20.00 100.00 01/28/21 19:00 111 01/28/21 18:00 93 28 115/59 (77) 93 Vapotherm 20.00 100.00 01/28/21 17:56 93 Vapotherm 20.00 60 01/28/21 17:00 93 123/92 (102) 98 Vapotherm 20.00 100.00 01/28/21 16:00 101 111/68 (82) 95 Vapotherm 20.00 100.00 01/28/21 15:57 36.6 01/28/21 15:00 112 118/79 (92) 99 Vapotherm 20.00 100.00 01/28/21 14:26 95 Vapotherm 20.00 90 01/28/21 14:00 113 25 115/84 (94) 92 Vapotherm 20.00 100.00 01/28/21 13:00 92 28 120/67 (84) 90 Vapotherm 20.00 100.00 01/28/21 12:27 112 I & O 01/29/21 07:00 Intake Total 1140 ml Output Total 890 ml Balance 250 ml Height & Weight Height: 5'2.00" Weight: 100lbs. 3.0oz. 45.255890tl; 16.04 BMI Method:Stated General Appearance: No Apparent Distress, Thin HEENT: PERRL/EOMI, Normal ENT Inspection, Pharynx Normal Neck: Full Range of Motion, Non Tender, Supple Respiratory: Chest Non Tender, No Accessory Muscle Use, No Respiratory Distress, Crackles (IN BASES), Decreased Breath Sounds, Other (DECREASED BREATH SOUNDS LEFT UPPER LOBE) Cardiovascular: No Edema, No Gallop, Normal Peripheral Pulses, Tachycardia Capillary Refill: Less Than 3 Seconds Gastrointestinal: normal bowel sounds, non tender Extremity: Normal Capillary Refill, Normal Inspection, Normal Range of Motion, Non Tender, No Calf Tenderness, No Pedal Edema Neurologic/Psychiatric: Alert, Oriented x3, No Motor/Sensory Deficits, 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, 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 Norm as Tested Skin: Normal Color, Warm/Dry Lymphatic: No Adenopathy Results Lab Laboratory Tests 01/28/21 03:45 01/29/21 03:54 Assessment/Plan Assessment/Plan Available chart/ vitals / labs / Images reviewed Video assessment done using teleICU camera, rest of exam as per RN Discussed with RN Events overnight : Oliguria --> a bolus 500 mls NS , tachy 120 Afebrile hemodynamically stable, no pressors, I/O = neg 500 Drips: Consultants: cadjessica Hospital course: admitted 01/26 with dyspnea , tachycardia , JAMES- 4 l NC 01/27 vapotherm 01/29 - on Vapotherm 20L 40 % A/P Acute on chronic respiratory failure- just d/c few days ago after tcx for [facility] PD - Ct chest - no PE -oxygen via vapotherm, - consider Lasix 40mg IV x 1 -will awit card input AECOPD- -airduo BID, singular -Duoneb q4hr -solumedrol 60 q 6 Chronic resp failure -(CT 01/2021 - severe emphysema , s/p left lobectomy with Chronic pleural thickening or pleural effusion PRICILLA arear egional bronchiectasis - traction - on 3 l O2 home Pneumonia. ? presumed , chronic RLL consolidation - worse now comparing to 05/2020 - empiric cefemime started on 01/26 - consider to stop tomorrow ( s/p tx with -levofloxacin 2 week ago , -legionella and strep pneumo antigen were negative A fib , chronic - on Eliquis - Metoprolol as per cards - still tachycardic - ? cadisem /?amio -Echo 12/2020 -EF 55-65% h/o persistent PTX on RIGHT s/p LEFT LLL lobectomy Medication noncompliance Lines peripf Arriaga: + OG: Nutrition: PO Analgesia: NA Anxiety/ delirium NA VTE Prophylaxis: eliquis Stress Ulcer Prophylaxis: H2bl ( on steroids Glycemic Control: + Plans in collaboration with bedside consultants and IM MDs. Discussed with RN to reach out if any questions or concerns A total of 30minutes of critical care time was devoted to this patient today, required to treat and/or prevent further deterioration of critical care condition ( as above ) [id number] SANIYA CARDENAS MD Jan 29, 2021 12:05
[2021-01-29] MEDS: LACTATED RINGERS 1,000 ML IV SCH (13:49)
--- NOTE | 2021-01-29 16:30 | Physician Query Clarification ---
Physician Query-General Query to Physician: The medical record reflects the following clinical evidence: Clinical Indicators: >5 Kg wt loss less than 2 weeks, Was 45.5 KG on 01/15/21, 01/26/21 was 39.8 kg, this is greater than 10% of body weight, BMI 16, weakness, fatigue, Risk Factor(s): Severe COPD, Recurrent PNA Treatment: Teaching alternating Activity and rest periods to preserve energy to eat, Monitoring caloric intake, Encouraging adequate nutritional intake 1. Unspecified severe protein-calorie malnutrition 2. Other explanation of clinical findings 3. Unable to determine (no explanation for clinical findings) Please clarify and document your clinical opinion in the progress notes and discharge summary including the definitive and/or presumptive diagnosis, (suspected or probable), related to the above clinical findings. Please include clinical findings supporting your diagnosis. Radha Rubi [phone] [email or web address] PHYSICIAN RESPONSE: Based on the clinical findings in the record, please respond to the query above on this document as an addendum. Physician Response: Physician Response 1 If you have questions please contact: Poultry Trimmer: Ext: Thank you for your time and cooperation. Clinical Retirement Specialist/Poultry Trimmer This is a permanent part of the medical record RADHA RUBI Jan 29, 2021 16:30 SLICK DE SANTIAGO MD Feb 02, 2021 16:18
--- NOTE | 2021-01-29 17:26 | Progress Note ---
Subjective Subjective Date Seen by Provider: Jan 29, 2021 Time Seen by Provider: 06:45 [address] in bed. Tachycardia Discussed code status and she wants to stay full code and let her kids decide if effort is futile. She did tell me that she does not want to live on machines and she has told her kids this. Review of Systems General: No Chills; Fatigue HEENT: No Dysphasia Pulmonary: Dyspnea; No Cough Cardiovascular: No: Chest Pain, Palpitations Gastrointestinal: No: Nausea, Abdominal Pain Genitourinary: No Dysuria Musculoskeletal: No: back pain Neurological: Weakness; No: Confusion All Other Systems Reviewed All Other Systems Reviewed: Yes Objective Exam Vital Signs Vital Signs Date Time Temp Pulse Resp B/P (MAP) Pulse Ox O2 Delivery O2 Flow Rate FiO2 01/29/21 17:00 104 36 136/108 (117) 93 Vapotherm 20.00 40.00 01/29/21 16:10 93 Vapotherm 20.00 40 01/29/21 16:00 110 25 157/86 (109) 92 Vapotherm 20.00 40.00 01/29/21 15:39 36.4 01/29/21 15:00 35 144/88 (106) 91 Vapotherm 20.00 40.00 01/29/21 14:46 96 Vapotherm 25.00 45 01/29/21 14:00 19 139/85 (103) 95 Vapotherm 20.00 40.00 01/29/21 13:00 91 38 149/73 (98) 97 Vapotherm 20.00 40.00 01/29/21 12:45 98 01/29/21 12:00 109 36 123/84 (97) 98 Vapotherm 20.00 40.00 01/29/21 12:00 93 Vapotherm 20.00 40 01/29/21 11:22 36.4 01/29/21 11:00 131 34 140/75 (96) 95 Vapotherm 20.00 40.00 01/29/21 10:15 96 Vapotherm 25.00 45 01/29/21 10:00 118 28 131/69 (89) 92 Vapotherm 20.00 40.00 01/29/21 09:00 112 26 128/62 (84) 98 Vapotherm 20.00 40.00 01/29/21 08:13 91 Vapotherm 20.00 40 01/29/21 08:00 130 34 145/76 (99) 91 Vapotherm 20.00 40.00 01/29/21 07:47 36.4 99 95 45 01/29/21 07:41 36.4 01/29/21 07:00 130 28 152/72 (98) 90 Vapotherm 20.00 40.00 01/29/21 06:44 102 01/29/21 06:25 95 Vapotherm 25.00 45 01/29/21 06:00 96 23 115/88 (97) 96 Vapotherm 20.00 40.00 01/29/21 05:00 97 33 142/74 (96) 98 Vapotherm 20.00 40.00 01/29/21 04:43 111 98 Vapotherm 25.00 50.00 01/29/21 04:00 109 34 141/65 (90) 88 Vapotherm 20.00 40.00 01/29/21 03:00 110 36 134/81 (98) 92 Vapotherm 20.00 40.00 01/29/21 02:10 103 25 88 Vapotherm 20.00 40.00 01/29/21 02:00 76 38 119/70 (86) 93 Vapotherm 15.00 35.00 01/29/21 01:55 92 Vapotherm 15.00 40 01/29/21 01:40 92 Vapotherm 15.00 35.00 01/29/21 01:00 77 19 119/76 (90) 95 Vapotherm 20.00 40.00 01/29/21 01:00 77 01/29/21 00:00 86 22 119/67 (84) 94 Vapotherm 20.00 40.00 01/29/21 00:00 36.0 01/28/21 23:00 100 24 127/63 (84) 90 Vapotherm 20.00 40.00 01/28/21 22:00 98 28 127/66 (86) 91 Vapotherm 20.00 40.00 01/28/21 21:58 Vapotherm 20.00 50.00 01/28/21 21:55 97 Vapotherm 20.00 40 01/28/21 21:00 92 24 128/55 (79) 96 Vapotherm 20.00 60.00 01/28/21 20:00 96 36 123/62 (82) 96 Vapotherm 20.00 60.00 01/28/21 19:23 36.6 01/28/21 19:16 104 26 130/80 (97) 95 Vapotherm 20.00 60.00 01/28/21 19:00 111 38 113/75 (88) 96 Vapotherm 20.00 100.00 01/28/21 19:00 111 01/28/21 18:00 93 28 115/59 (77) 93 Vapotherm 20.00 100.00 01/28/21 17:56 93 Vapotherm 20.00 60 I & O 01/29/21 07:00 Intake Total 1140 ml Output Total 890 ml Balance 250 ml General Appearance: No Apparent Distress, Thin Eyes: Bilateral Eye Normal Inspection, Bilateral Eye PERRL, Bilateral Eye EOMI HEENT: PERRL/EOMI, Normal ENT Inspection, Pharynx Normal Neck: Full Range of Motion, Non Tender, Supple Respiratory: Chest Non Tender, No Accessory Muscle Use, No Respiratory Distress, Crackles (IN BASES), Decreased Breath Sounds, Other (DECREASED BREATH SOUNDS LEFT UPPER LOBE) Cardiovascular: No Edema, No Gallop, Normal Peripheral Pulses, Tachycardia Gastrointestinal: Normal Bowel Sounds, No Organomegaly, No Pulsatile Mass, Non Tender, Soft Rectal: Deferred Back: Normal Inspection, No CVA Tenderness, No Vertebral Tenderness Extremity: Normal Capillary Refill, Normal Inspection, Normal Range of Motion, Non Tender, No Calf Tenderness, No Pedal Edema Neurologic/Psychiatric: Alert, Oriented x3, No Motor/Sensory Deficits, 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, 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 pump 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 II-XII Norm as Tested Skin: Normal Color, Warm/Dry Lymphatic: No Adenopathy Results Lab Laboratory Tests 01/29/21 03:54: White Blood Count 9.7, Red Blood Count 3.59L, Hemoglobin 11.4L, Hematocrit 36, Mean Corpuscular Volume 101H, Mean Corpuscular Hemoglobin 32, Mean Corpuscular Hemoglobin Concent 31L, Red Cell Distribution Width 13.7, Platelet Count 154, Mean Platelet Volume 9.8, Immature Granulocyte % (Auto) 1, Neutrophils (%) (Auto) 96H, Lymphocytes (%) (Auto) 2L, Monocytes (%) (Auto) 1, Eosinophils (%) (Auto) 0, Basophils (%) (Auto) 0, Neutrophils # (Auto) 9.3H, Lymphocytes # (Auto) 0.2L, Monocytes # (Auto) 0.1, Eosinophils # (Auto) 0.0, Basophils # (Auto) 0.0, Immature Granulocyte # (Auto) 0.1, Sodium Level 142, Potassium Level 4.0, Chloride Level 102, Carbon Dioxide Level 25, Anion Gap 15H, Blood Urea Nitrogen 17, Creatinine 0.66, Estimat Glomerular Filtration Rate > 60, BUN/Creatinine Ratio 26, Glucose Level 231H, Calcium Level 9.0, Phosphorus Level 1.6L, Magnesium Level 1.8 Microbiology 01/27/21 MRSA Screen - Final, Complete MRSA not isolated 01/26/21 Blood Culture - Preliminary, Resulted No growth Assessment/Plan Assessment/Plan Assessment and Plan 01/29/21- metoprolol changed to 12.5mg BID. Continue respiratory support. On eliquis. -Dispo: condition guarded as this is a re-admit for COPD exacerbation/acute on chronic hypoxic respiratory failure. Problems: (1) Acute and chronic respiratory failure with hypoxia Assessment & Plan: due to COPD worsening. (2) COPD exacerbation Assessment & Plan: covered for pneumonia. RT consulted. (3) Sinus tachycardia Assessment & Plan: metoprolol tartrate to 12.5 mg twice a day. (4) Palpitations Assessment & Plan: Most likely related to atrial fibrillation, known ventricular premature complexes and possibly sinus tachycardia. We will continue beta-sean as above. (5) Paroxysmal A-fib SLICK DE SANTIAGO MD Jan 29, 2021 17:26
[2021-01-29] MEDS: VITAMIN D3 25 MCG (1,000 UNITS) TABLET PO SCH (20:39)
[2021-01-29] MEDS: FAMOTIDINE 20 MG (PEPCID) TABLET PO SCH (20:39)
[2021-01-30] MEDS: methylPREDNISolone 125 MG (Solu-MEDROL) VIAL IVP SCH ×4 (00:51→19:01)
[2021-01-30] MEDS: RT-ALBUTEROL/IPRATROPIUM 3 ML (DUONEB) VIAL INH SCH ×6 (02:01→21:57)
[2021-01-30 04:48] LABS: BASOPHILS % (AUTO) 0 % (0-10); EOSINOPHILS % (AUTO) 0 % (0-10); HEMATOCRIT 35 % (35-52); LYMPHOCYTES # (AUTO) 0.2 10^3/uL (1.0-4.0); LYMPHOCYTES % (AUTO) 2 % (12-44); MEAN CORPUSCULAR HEMOGLOBIN 32 pg (25-34); MEAN CORPUSCULAR HGB CONC 32 g/dL (32-36); MEAN CORPUSCULAR VOLUME 101 fL (80-99); MEAN PLATELET VOLUME 10.2 fL (9.0-12.2); MONOCYTES # (AUTO) 0.2 10^3/uL (0.0-1.0); MONOCYTES % (AUTO) 2 % (0-12); NEUTROPHILS # (AUTO) 8.7 10^3/uL (1.8-7.8); NEUTROPHILS % (AUTO) 95 % (42-75); PLATELET COUNT 155 10^3/uL (130-400); WHITE BLOOD COUNT 9.2 10^3/uL (4.3-11.0)
[2021-01-30 05:01] LABS: CHLORIDE 102 MMOL/L (98-107); POTASSIUM 3.9 MMOL/L (3.6-5.0); SODIUM 138 MMOL/L (135-145)
[2021-01-30 05:03] LABS: CALCIUM 8.7 MG/DL (8.5-10.1); GLUCOSE 147 MG/DL (70-105)
[2021-01-30 05:05] LABS: CARBON DIOXIDE 26 MMOL/L (21-32)
[2021-01-30 05:07] LABS: CREATININE SERUM 0.55 MG/DL (0.60-1.30); GFR ESTIMATED > 60; PHOSPHORUS 1.9 MG/DL (2.3-4.7)
[2021-01-30 05:08] LABS: BUN/CREATININE RATIO 25
[2021-01-30 05:09] LABS: MAGNESIUM 1.9 MG/DL (1.6-2.4)
[2021-01-30] MEDS: POTASSIUM CL 10MEQ/50ML IVPB 50 ML IV SCH (05:40)
[2021-01-30] MEDS: KCL 20 MEQ TAB (K-DUR) PO SCH (05:40)
[2021-01-30] MEDS: MAGNESIUM 1 GM/100 ML IVPB 100 ML IV SCH (05:40)
[2021-01-30] MEDS: CEFEPIME INJECTION 1,000 MG in WATER (STERILE) FOR INJECTION 10 ML IV SCH ×3 (05:51→22:39)
[2021-01-30] MEDS: CATHETER FLUSH 10 ML SYR IV SCH ×3 (05:52→22:39)
[2021-01-30] MEDS: UMECLIDINIUM BROMIDE (INCRUSE ELLIPTA) 7'S IH SCH (06:37)
[2021-01-30] MEDS: RT--FLUTICASONE/SALMETEROL 232-14 (AIRDUO RespiCLICK) IH SCH ×2 (06:37→18:16)
[2021-01-30] MEDS: APIXABAN 5 MG (ELIQUIS) TABLET PO SCH ×2 (07:58→21:15)
[2021-01-30] MEDS: meTOprolol TARTRATE 25 MG (LOPRESSOR) TABLET PO SCH ×2 (07:58→21:15)
[2021-01-30] MEDS: FAMOTIDINE 20 MG (PEPCID) TABLET PO SCH ×2 (07:58→21:15)
--- NOTE | 2021-01-30 10:28 | Pulmonary Progress Note ---
Subjective Date Seen by a Provider: Jan 30, 2021 Time Seen by a Provider: 10:28 Sepsis Event Evaluation Height, Weight, BMI Height: 5'2.00" Weight: 100lbs. 3.0oz. 45.589132aj; 16.04 BMI Method:Stated Exam Exam Patient acknowledged, consented, and participated in this virtual visit which was conducted using real time audio/video Vital Signs Date Time Temp Pulse Resp B/P (MAP) Pulse Ox O2 Delivery O2 Flow Rate FiO2 01/30/21 10:00 118 28 137/80 (99) 89 High Flow N/C 8.00 01/30/21 09:00 104 28 124/95 (105) 87 High Flow N/C 8.00 01/30/21 08:03 High Flow N/C 8.00 01/30/21 08:00 86 31 129/86 (100) 92 High Flow N/C 10.00 01/30/21 08:00 93 High Flow N/C 8.00 01/30/21 07:21 36.1 01/30/21 07:09 High Flow N/C 10.00 01/30/21 07:00 98 01/30/21 07:00 92 29 127/96 (106) 93 High Flow N/C 8.00 01/30/21 07:00 92 29 127/96 (106) 93 High Flow N/C 8.00 01/30/21 06:52 92 22 88 High Flow N/C 6.00 01/30/21 06:37 Vapotherm 25.00 35 01/30/21 06:37 Vapotherm 25.00 35 01/30/21 06:36 96 Vapotherm 25.00 40 01/30/21 06:00 71 20 147/78 (101) 95 Vapotherm 20.00 40.00 01/30/21 05:00 68 19 137/78 (97) 96 Vapotherm 20.00 40.00 01/30/21 04:00 78 22 132/73 (92) 95 Vapotherm 20.00 40.00 01/30/21 04:00 93 Vapotherm 20.00 40 01/30/21 03:00 76 25 122/76 (91) 97 Vapotherm 20.00 40.00 01/30/21 02:01 97 Vapotherm 25.00 50 01/30/21 02:00 79 133/80 (97) 98 Vapotherm 20.00 40.00 01/30/21 01:00 80 21 90 Vapotherm 20.00 40.00 01/30/21 01:00 80 01/30/21 00:00 75 21 154/74 (100) 96 Vapotherm 20.00 40.00 01/29/21 23:59 94 Vapotherm 20.00 40 01/29/21 23:00 70 24 148/82 (104) 95 Vapotherm 20.00 40.00 01/29/21 22:00 70 24 148/81 (103) 95 Vapotherm 20.00 40.00 01/29/21 21:53 96 Vapotherm 25.00 40 01/29/21 21:00 80 23 147/100 (122) 93 Vapotherm 20.00 40.00 01/29/21 20:00 96 23 154/87 (122) 94 Vapotherm 20.00 40.00 01/29/21 20:00 92 Vapotherm 20.00 40 01/29/21 19:00 100 21 147/87 (116) 93 Vapotherm 20.00 40.00 01/29/21 19:00 100 01/29/21 18:55 92 Vapotherm 25.00 40 01/29/21 18:00 107 47 150/144 (146) 92 Vapotherm 20.00 40.00 01/29/21 17:00 104 36 136/108 (117) 93 Vapotherm 20.00 40.00 01/29/21 16:10 93 Vapotherm 20.00 40 01/29/21 16:00 110 25 157/86 (109) 92 Vapotherm 20.00 40.00 01/29/21 15:39 36.4 01/29/21 15:00 35 144/88 (106) 91 Vapotherm 20.00 40.00 01/29/21 14:46 96 Vapotherm 25.00 45 01/29/21 14:00 19 139/85 (103) 95 Vapotherm 20.00 40.00 01/29/21 13:00 91 38 149/73 (98) 97 Vapotherm 20.00 40.00 01/29/21 12:45 98 01/29/21 12:00 109 36 123/84 (97) 98 Vapotherm 20.00 40.00 01/29/21 12:00 93 Vapotherm 20.00 40 01/29/21 11:22 36.4 01/29/21 11:00 131 34 140/75 (96) 95 Vapotherm 20.00 40.00 I & O 01/30/21 07:00 Intake Total 1090 ml Output Total 655 ml Balance 435 ml Height & Weight Height: 5'2.00" Weight: 100lbs. 3.0oz. 45.300588bm; 16.04 BMI Method:Stated General Appearance: No Apparent Distress, Thin HEENT: PERRL/EOMI, Normal ENT Inspection, Pharynx Normal Neck: Full Range of Motion, Non Tender, Supple Respiratory: Chest Non Tender, No Accessory Muscle Use, No Respiratory Distress, Crackles (IN BASES), Decreased Breath Sounds, Other (DECREASED BREATH SOUNDS LEFT UPPER LOBE) Cardiovascular: No Edema, No Gallop, Normal Peripheral Pulses, Tachycardia Capillary Refill: Less Than 3 Seconds Gastrointestinal: normal bowel sounds, non tender Extremity: Normal Capillary Refill, Normal Inspection, Normal Range of Motion, Non Tender, No Calf Tenderness, No Pedal Edema Neurologic/Psychiatric: Alert, Oriented x3, No Motor/Sensory Deficits, 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, 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 Norm as Tested Skin: Normal Color, Warm/Dry Lymphatic: No Adenopathy Results Lab Laboratory Tests 01/29/21 03:54 01/30/21 03:22 Assessment/Plan Assessment/Plan Available chart/ vitals / labs / Images reviewed Video assessment done using teleICU camera, rest of exam as per RN Discussed with RN , dyspnea is better Events overnight :none , Afebrile hemodynamically stable, no pressors, I/O = pos 500 Drips: Consultants: [facility] Hospital course: admitted 01/26 with dyspnea , tachycardia , JAMES- 4 l NC 01/27 vapotherm 01/29 - on Vapotherm 20L 40 % A/P Acute on chronic respiratory failure- just d/c few days ago after tcx for AECOPD - Ct chest - no PE -oxygen via vapotherm, - consider Lasix 40mg IV x 1 -will awit card input AECOPD- -airduo BID, singular -Duoneb q4hr -solumedrol 60 q 6 Chronic resp failure -(CT 01/2021 - severe emphysema , s/p left lobectomy with Chronic pleural thickening or pleural effusion PRICILLA arear egional bronchiectasis - traction - on 3 l O2 home Pneumonia. ? presumed , chronic RLL consolidation - worse now comparing to 05/2020 - empiric cefemime started on 01/26 - consider to stop tomorrow ( s/p tx with -levofloxacin 2 week ago , -legionella and strep pneumo antigen were negative -sputum with yeast - most likely oral contanminant , but at rislk of fungal esophaitis . trush with chronic steroids - discussed with RN to do exam fo me A fib , chronic - on Eliquis - Metoprolol / cardozem po as per cards - still tachycardic - -Echo 12/2020 -EF 55-65% h/o persistent PTX on RIGHT- none on CT 01/26/21 s/p LEFT LLL lobectomy Medication noncompliance Lines peripf Arriaga: +, too SOB when moving OG: Nutrition: PO Analgesia: NA Anxiety/ delirium NA VTE Prophylaxis: eliquis Stress Ulcer Prophylaxis: H2bl ( on steroids Glycemic Control: + Code -as per notes - discussed 01/30 -" wants to stay full code and let her kids decide if effort is futile. She did tell me that she does not want to live on machines" Plans in collaboration with bedside consultants and IM MDs. Discussed with RN to reach out if any questions or concerns A total of 30minutes of critical care time was devoted to this patient today, required to treat and/or prevent further deterioration of critical care condition ( as above ) [id number] SANIYA CARDENAS MD Jan 30, 2021 10:28
--- NOTE | 2021-01-30 10:29 | Cardiology Progress Note ---
Subjective Date Seen by Provider: Jan 30, 2021 Time Seen by Provider: 10:24 Subjective/Events-last exam We are seeing her due to atrial fibrillation. She remains in the ICU. She states her breathing is about the same. She denies chest discomfort, palpitations, syncope, or ankle edema. Objective-Cardiology Exam Last Set of Vital Signs Vital Signs 01/30/21 01/30/21 01/30/21 06:37 07:21 10:00 Temp 36.1 Pulse 118 Resp 28 B/P (MAP) 137/80 (99) Pulse Ox 89 O2 Delivery High Flow N/C O2 Flow Rate 8.00 FiO2 35 Capillary Refill : Less Than 3 Seconds I&O Intake and Output 01/30/21 00:00 Intake Total 1190 ml Output Total 615 ml Balance 575 ml Intake Oral 1090 ml IV Total 100 ml Output Urine Total 615 ml General: Alert, Oriented X3, Cooperative, No Acute Distress HEENT: Atraumatic, EOMI Neck: Supple, No JVD Lungs: Other (Diffusely decreased breath sounds with scattered wheezes bilaterally.) Heart: Other (Tachycardia with irregular rhythm. 2/6 systolic ejection murmur. No rubs or gallops appreciated.) Abdomen: Normal Bowel Sounds, Soft Extremities: No Clubbing, No Cyanosis Skin: No Rashes Neuro: Normal Speech, Cranial Nerves 3-12 NL Psych/Mental Status: Mental Status NL, Mood NL Results Lab Laboratory Tests 01/30/21 03:22 A/P-Cardiology Admission Diagnosis (1) Persistent atrial fibrillation Status: Chronic Assessment & Plan: She is back in atrial fibrillation. She is asymptomatic with this. She does have tachycardia. She was intolerant of diltiazem due to iatrogenic hypotension. She is not a good candidate for amiodarone or sotalol due to her severe, underlying chronic obstructive pulmonary disease. She may be a candidate for a type Ic antiarrhythmic drug but first we need to have her undergo an ischemic evaluation. Her regular wash driller, Dr. Savage, had planned to do this as an outpatient. Given the persistent tachycardia, I will increase her dose of metoprolol. She should continue on apixaban for stroke prophylaxis. (2) Acute and chronic respiratory failure with hypoxia Assessment & Plan: Most likely related to her chronic obstructive pulmonary disease with an acute exacerbation. The covering hospital physician is managing this as well eICU. We will need to watch her respiratory status closely as we increase the dose of beta-sean. (3) Palpitations Status: Chronic Assessment & Plan: Now that she is in atrial fibrillation again, she denies palpitations. In the past, the palpitations have been felt to be due to intermittent ventricular bigeminy and trigeminy. The beta-sean should help suppress some of this ventricular ectopy. (4) Noncompliance with medication regimen Status: Acute Assessment & Plan: She needs ongoing reinforcement about the importance of taking her medications as prescribed when she is discharged to home. MAGGIE LONDON JR, MD Jan 30, 2021 10:29
[2021-01-30] MEDS ORDERED: meTOprolol TARTRATE 25 MG (LOPRESSOR) TABLET PO ONE (10:30)
[2021-01-30] MEDS: LACTATED RINGERS 1,000 ML IV SCH (11:16)
--- NOTE | 2021-01-30 15:10 | Progress Note ---
Subjective Subjective Date Seen by Provider: Jan 30, 2021 Time Seen by Provider: 12:45 Sitting up eating lunch- Potato from [employer]. She was a little grim in her outlook. Review of Systems General: No Chills; Fatigue HEENT: No Dysphasia Pulmonary: Dyspnea; No Cough Cardiovascular: No: Chest Pain, Palpitations Gastrointestinal: No: Nausea, Abdominal Pain Genitourinary: No Dysuria Musculoskeletal: No: back pain Neurological: Weakness; No: Confusion All Other Systems Reviewed All Other Systems Reviewed: Yes Objective Exam Vital Signs Vital Signs Date Time Temp Pulse Resp B/P (MAP) Pulse Ox O2 Delivery O2 Flow Rate FiO2 0 01/30/21 21:58 95 High Flow N/C 8.00 01/30/21 21:00 112 21 126/81 (100) 95 High Flow N/C 10.00 01/30/21 20:26 High Flow N/C 10.00 01/30/21 20:00 94 High Flow N/C 10.00 01/30/21 20:00 101 25 117/78 (91) 97 High Flow N/C 9.00 01/30/21 19:00 110 01/30/21 19:00 110 36 114/97 (105) 98 High Flow N/C 9.00 01/30/21 18:16 91 High Flow N/C 10.00 01/30/21 18:00 113 34 116/82 (93) 82 High Flow N/C 9.00 01/30/21 17:00 106 24 129/90 (103) 97 High Flow N/C 9.00 01/30/21 16:00 93 High Flow N/C 10.00 01/30/21 16:00 90 29 130/104 (113) High Flow N/C 9.00 01/30/21 15:00 101 23 124/86 (99) 96 High Flow N/C 9.00 01/30/21 14:22 High Flow N/C 9.00 01/30/21 14:16 95 High Flow N/C 9.00 01/30/21 14:00 86 26 127/118 (121) 92 High Flow N/C 8.00 01/30/21 13:00 96 24 132/77 (95) 86 High Flow N/C 8.00 01/30/21 12:54 107 01/30/21 12:00 112 33 134/91 (105) 92 High Flow N/C 8.00 01/30/21 12:00 93 High Flow N/C 10.00 01/30/21 11:00 117 34 127/83 (98) 96 High Flow N/C 8.00 01/30/21 10:25 96 High Flow N/C 10.00 01/30/21 10:00 118 28 137/80 (99) 89 High Flow N/C 8.00 01/30/21 09:00 104 28 124/95 (105) 87 High Flow N/C 8.00 01/30/21 08:03 High Flow N/C 8.00 01/30/21 08:00 86 31 129/86 (100) 92 High Flow N/C 10.00 01/30/21 08:00 93 High Flow N/C 8.00 01/30/21 07:21 36.1 01/30/21 07:09 High Flow N/C 10.00 01/30/21 07:00 98 01/30/21 07:00 92 29 127/96 (106) 93 High Flow N/C 8.00 01/30/21 07:00 92 29 127/96 (106) 93 High Flow N/C 8.00 01/30/21 06:52 92 22 88 High Flow N/C 6.00 01/30/21 06:37 Vapotherm 25.00 35 01/30/21 06:37 Vapotherm 25.00 35 01/30/21 06:36 96 Vapotherm 25.00 40 01/30/21 06:00 71 20 147/78 (101) 95 Vapotherm 20.00 40.00 01/30/21 05:00 68 19 137/78 (97) 96 Vapotherm 20.00 40.00 01/30/21 04:00 78 22 132/73 (92) 95 Vapotherm 20.00 40.00 01/30/21 04:00 93 Vapotherm 20.00 40 01/30/21 03:00 76 25 122/76 (91) 97 Vapotherm 20.00 40.00 01/30/21 02:01 97 Vapotherm 25.00 50 01/30/21 02:00 79 133/80 (97) 98 Vapotherm 20.00 40.00 I & O 01/31/21 07:00 Intake Total 1025 ml Output Total 840 ml Balance 185 ml General Appearance: No Apparent Distress, Thin Eyes: Bilateral Eye Normal Inspection, Bilateral Eye PERRL, Bilateral Eye EOMI HEENT: PERRL/EOMI, Normal ENT Inspection, Pharynx Normal Neck: Full Range of Motion, Non Tender, Supple Respiratory: Chest Non Tender, No Accessory Muscle Use, No Respiratory Distress, Crackles (IN BASES), Decreased Breath Sounds, Other (DECREASED BREATH SOUNDS LEFT UPPER LOBE) Cardiovascular: No Edema, No Gallop, Normal Peripheral Pulses, Tachycardia Gastrointestinal: Normal Bowel Sounds, No Organomegaly, No Pulsatile Mass, Non Tender, Soft Rectal: Deferred Back: Normal Inspection, No CVA Tenderness, No Vertebral Tenderness Extremity: Normal Capillary Refill, Normal Inspection, Normal Range of Motion, Non Tender, No Calf Tenderness, No Pedal Edema Neurologic/Psychiatric: Alert, Oriented x3, No Motor/Sensory Deficits, 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, 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 Tested Skin: Normal Color, Warm/Dry Lymphatic: No Adenopathy Results Lab Laboratory Tests 01/30/21 03:22: White Blood Count 9.2, Red Blood Count 3.47L, Hemoglobin 11.0L, Hematocrit 35, Mean Corpuscular Volume 101H, Mean Corpuscular Hemoglobin 32, Mean Corpuscular Hemoglobin Concent 32, Red Cell Distribution Width 13.5, Platelet Count 155, Mean Platelet Volume 10.2, Immature Granulocyte % (Auto) 1, Neutrophils (%) (Auto) 95H, Lymphocytes (%) (Auto) 2L, Monocytes (%) (Auto) 2, Eosinophils (%) (Auto) 0, Basophils (%) (Auto) 0, Neutrophils # (Auto) 8.7H, Lymphocytes # (Auto) 0.2L, Monocytes # (Auto) 0.2, Eosinophils # (Auto) 0.0, Basophils # (Auto) 0.0, Immature Granulocyte # (Auto) 0.1, Sodium Level 138, Potassium Level 3.9, Chloride Level 102, Carbon Dioxide Level 26, Anion Gap 10, Blood Urea Nitrogen 14, Creatinine 0.55L, Estimat Glomerular Filtration Rate > 60, BUN/Creatinine Ratio 25, Glucose Level 147H, Calcium Level 8.7, Phosphorus Level 1.9L, Magnesium Level 1.9 Microbiology 01/27/21 MRSA Screen - Final, Complete MRSA not isolated 01/26/21 Blood Culture - Preliminary, Resulted No growth Assessment/Plan Assessment/Plan Assessment and Plan 01/29/21- metoprolol changed to 12.5mg BID. Continue respiratory support. On eliquis. 01/30/21- metoprolol increased to 25mg BID by cardiology to help with the tachycardia. continue eliquis. Will continue open discussion with patient on her health including her prognosis and code status. She is further down in spirit today but does not want to start anything for depression. She feels with time she will get over the depressive state. -Dispo: condition guarded as this is a re-admit for COPD exacerbation/acute on chronic hypoxic respiratory failure. Problems: (1) Acute and chronic respiratory failure with hypoxia Assessment & Plan: due to COPD (2) Persistent atrial fibrillation (3) COPD exacerbation SLICK DE SANTIAGO MD Jan 30, 2021 15:10
[2021-01-30] MEDS: NYSTATIN ORAL SUSP 5 ML UDC PO SCH (19:01)
[2021-01-30] MEDS ORDERED: POTASSIUM PHOSPHATE INJ 30 MM in NS (IVPB) 250 ML IV NR (21:00)
[2021-01-30] MEDS: VITAMIN D3 25 MCG (1,000 UNITS) TABLET PO SCH (21:15)
[2021-01-30] MEDS: ALPRAZolam 0.5 MG (XANAX) TAB PO PRN (21:15)
[2021-01-31] MEDS: methylPREDNISolone 125 MG (Solu-MEDROL) VIAL IVP SCH ×4 (00:07→17:35)
[2021-01-31] MEDS: NYSTATIN ORAL SUSP 5 ML UDC PO SCH ×4 (00:17→17:35)
[2021-01-31] MEDS: RT-ALBUTEROL/IPRATROPIUM 3 ML (DUONEB) VIAL INH SCH ×6 (02:22→21:46)
[2021-01-31 03:35] LABS: BASOPHILS % (AUTO) 0 % (0-10); EOSINOPHILS % (AUTO) 0 % (0-10); HEMATOCRIT 36 % (35-52); HEMOGLOBIN 11.5 g/dL (11.5-16.0); LYMPHOCYTES # (AUTO) 0.2 10^3/uL (1.0-4.0); LYMPHOCYTES % (AUTO) 2 % (12-44); MEAN CORPUSCULAR HEMOGLOBIN 32 pg (25-34); MEAN CORPUSCULAR HGB CONC 32 g/dL (32-36); MEAN CORPUSCULAR VOLUME 101 fL (80-99); MEAN PLATELET VOLUME 10.1 fL (9.0-12.2); MONOCYTES # (AUTO) 0.2 10^3/uL (0.0-1.0); MONOCYTES % (AUTO) 2 % (0-12); NEUTROPHILS # (AUTO) 7.8 10^3/uL (1.8-7.8); NEUTROPHILS % (AUTO) 94 % (42-75); PLATELET COUNT 175 10^3/uL (130-400); WHITE BLOOD COUNT 8.3 10^3/uL (4.3-11.0)
[2021-01-31 03:54] LABS: CHLORIDE 102 MMOL/L (98-107); POTASSIUM 4.6 MMOL/L (3.6-5.0); SODIUM 141 MMOL/L (135-145)
[2021-01-31 03:55] LABS: CALCIUM 8.6 MG/DL (8.5-10.1); GLUCOSE 171 MG/DL (70-105)
[2021-01-31 03:57] LABS: CARBON DIOXIDE 27 MMOL/L (21-32)
[2021-01-31 03:59] LABS: CREATININE SERUM 0.56 MG/DL (0.60-1.30); GFR ESTIMATED > 60
[2021-01-31 04:00] LABS: BUN/CREATININE RATIO 29
[2021-01-31 04:01] LABS: MAGNESIUM 1.9 MG/DL (1.6-2.4)
[2021-01-31] MEDS: POTASSIUM CL 10MEQ/50ML IVPB 50 ML IV SCH (04:55)
[2021-01-31] MEDS: KCL 20 MEQ TAB (K-DUR) PO SCH (04:56)
[2021-01-31] MEDS: MAGNESIUM 1 GM/100 ML IVPB 100 ML IV SCH (04:56)
[2021-01-31] MEDS: CATHETER FLUSH 10 ML SYR IV SCH ×3 (06:06→21:39)
[2021-01-31] MEDS: CEFEPIME INJECTION 1,000 MG in WATER (STERILE) FOR INJECTION 10 ML IV SCH ×2 (06:06→13:56)
[2021-01-31] MEDS: RT--FLUTICASONE/SALMETEROL 232-14 (AIRDUO RespiCLICK) IH SCH ×2 (07:20→19:18)
[2021-01-31] MEDS: UMECLIDINIUM BROMIDE (INCRUSE ELLIPTA) 7'S IH SCH (07:20)
[2021-01-31] MEDS: APIXABAN 5 MG (ELIQUIS) TABLET PO SCH ×2 (09:01→21:39)
[2021-01-31] MEDS: meTOprolol TARTRATE 25 MG (LOPRESSOR) TABLET PO SCH ×2 (09:01→21:39)
[2021-01-31] MEDS: LACTATED RINGERS 1,000 ML IV SCH (10:24)
--- NOTE | 2021-01-31 10:37 | Pulmonary Progress Note ---
Subjective Date Seen by a Provider: Jan 31, 2021 Time Seen by a Provider: 10:31 Subjective/Events-last exam 75 F with COPD, on high flow @ 10 lpm, tolerating well with good SpO2, no resp distress also paroxysmal a fib, rate stays around 80-105, on Lopressor Sepsis Event Evaluation Height, Weight, BMI Height: 5'2.00" Weight: 100lbs. 3.0oz. 45.716762tc; 16.04 BMI Method:Stated Exam Exam Patient acknowledged, consented, and participated in this virtual visit which was conducted using real time audio/video Vital Signs Date Time Temp Pulse Resp B/P (MAP) Pulse Ox O2 Delivery O2 Flow Rate FiO2 01/31/21 09:00 90 22 131/81 (98) 97 High Flow N/C 10.00 01/31/21 08:00 90 29 145/81 (102) 93 High Flow N/C 10.00 01/31/21 08:00 90 High Flow N/C 10.00 01/31/21 07:49 36.8 01/31/21 07:20 93 High Flow N/C 10.00 01/31/21 07:00 87 21 143/82 (102) 92 High Flow N/C 10.00 01/31/21 06:49 81 01/31/21 06:00 71 25 137/81 (99) 98 High Flow N/C 10.00 01/31/21 05:00 71 21 136/79 (104) 98 High Flow N/C 10.00 01/31/21 04:00 92 High Flow N/C 10.00 01/31/21 04:00 81 25 129/75 (97) 98 High Flow N/C 10.00 01/31/21 03:00 87 23 128/74 (92) 92 High Flow N/C 10.00 01/31/21 02:22 94 High Flow N/C 6.00 01/31/21 02:00 78 26 142/78 (105) 92 High Flow N/C 10.00 01/31/21 01:00 85 01/31/21 01:00 85 22 138/80 (108) 95 High Flow N/C 10.00 01/31/21 00:00 90 24 137/76 (96) 97 High Flow N/C 10.00 6/15/21 23:59 92 High Flow N/C 10.00 01/30/21 23:00 93 14 124/82 (96) 91 High Flow N/C 10.00 01/30/21 22:00 114 26 118/90 (101) 99 High Flow N/C 10.00 01/30/21 21:58 95 High Flow N/C 8.00 01/30/21 21:00 112 21 126/81 (100) 95 High Flow N/C 10.00 01/30/21 20:26 High Flow N/C 10.00 01/30/21 20:00 94 High Flow N/C 10.00 01/30/21 20:00 101 25 117/78 (91) 97 High Flow N/C 9.00 01/30/21 19:00 110 01/30/21 19:00 110 36 114/97 (105) 98 High Flow N/C 9.00 01/30/21 18:16 91 High Flow N/C 10.00 01/30/21 18:00 113 34 116/82 (93) 82 High Flow N/C 9.00 01/30/21 17:00 106 24 129/90 (103) 97 High Flow N/C 9.00 01/30/21 16:00 93 High Flow N/C 10.00 01/30/21 16:00 90 29 130/104 (113) High Flow N/C 9.00 01/30/21 15:00 101 23 124/86 (99) 96 High Flow N/C 9.00 01/30/21 14:22 High Flow N/C 9.00 01/30/21 14:16 95 High Flow N/C 9.00 01/30/21 14:00 86 26 127/118 (121) 92 High Flow N/C 8.00 01/30/21 13:00 96 24 132/77 (95) 86 High Flow N/C 8.00 01/30/21 12:54 107 01/30/21 12:00 112 33 134/91 (105) 92 High Flow N/C 8.00 01/30/21 12:00 93 High Flow N/C 10.00 01/30/21 11:00 117 34 127/83 (98) 96 High Flow N/C 8.00 I & O 01/31/21 07:00 Intake Total 1475 ml Output Total 1050 ml Balance 425 ml Height & Weight Height: 5'2.00" Weight: 100lbs. 3.0oz. 45.679893zv; 16.04 BMI Method:Stated General Appearance: No Apparent Distress, Thin HEENT: PERRL/EOMI, Normal ENT Inspection, Pharynx Normal Neck: Full Range of Motion, Non Tender, Supple Respiratory: Chest Non Tender, Lungs Clear, No Accessory Muscle Use, No Respira tory Distress, Crackles (IN BASES), Decreased Breath Sounds; No Other Cardiovascular: Regular Rate, Rhythm, No Edema, No Gallop, Normal Peripheral Pulses, Tachycardia Capillary Refill: Less Than 3 Seconds Gastrointestinal: normal bowel sounds, non tender Extremity: Normal Capillary Refill, Normal Inspection, Normal Range of Motion, Non Tender, No Calf Tenderness, No Pedal Edema, Pedal Edema Neurologic/Psychiatric: Alert, Oriented x3, No Motor/Sensory Deficits, 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
--- NOTE | 2021-01-31 11:26 | Cardiology Progress Note ---
Subjective Date Seen by Provider: Jan 31, 2021 Time Seen by Provider: 12:24 Subjective/Events-last exam No new complaints, denies any chest pain or increased dypsnea. Review of Systems General: No Chills, No Night Sweats, No Fatigue, No Malaise, No Appetite, No Other HEENT: No Head Aches, No Visual Changes, No Eye Pain, No Ear Pain, No Dysphasia, No Sinus Congestion, No Post Nasal Drip, No Sore Throat, No Other Pulmonary: Dyspnea; No Cough, No Pleuritic Chest Pain, No Other Cardiovascular: No: Chest Pain, Palpitations, Orthopnea, Paroxysmal Noc. Dyspnea, Edema, Lt Headedness, Other Objective-Cardiology Exam Last Set of Vital Signs Vital Signs 01/30/21 01/31/21 01/31/21 06:37 16:00 16:13 Temp 36.2 Pulse 81 Resp 20 B/P (MAP) 154/76 (102) Pulse Ox 97 O2 Delivery High Flow N/C O2 Flow Rate 10.00 FiO2 35 Capillary Refill : Less Than 3 Seconds I&O Intake and Output 01/31/21 00:00 Intake Total 1075 ml Output Total 1085 ml Balance -10 ml Intake Oral 1075 ml Output Urine Total 1085 ml General: Alert, Oriented X3, Cooperative, No Acute Distress HEENT: Atraumatic, EOMI Neck: Supple, No JVD Lungs: Other (Diffusely decreased breath sounds with scattered wheezes bilaterally.) Heart: Normal S1, Normal S2, Other (irregularly irregular rhythm. 2/6 systolic ejection murmur. No rubs or gallops appreciated.) Abdomen: Normal Bowel Sounds, Soft Extremities: No Clubbing, No Cyanosis Skin: No Rashes Neuro: Normal Speech, Cranial Nerves 3-12 NL Psych/Mental Status: Mental Status NL, Mood NL Results Lab Laboratory Tests 01/31/21 03:23 A/P-Cardiology Admission Diagnosis AE COPD Persistent afib PVCs ETOH use Assessment/Plan Persistent atrial fibrillation, rate is better controlled, maintained on Eliquis, beta sean, diltiazem. Unable to tolerate Amiodarone on sotalol d/t severe COPD. Will consider use of class IC antiarrythmics, no recent cardiac workup, will require stress test prior to starting medication. COPD, acute exacerbation with acute respiratory failure, slowly improving. Alcoholism, patient educated on reduction of alcohol intake Palpitations with frequent PVCs, maintained on beta sean. History of left lobectomy Patient was seen and evaluated with Christine, examination performed, management plan was discussed, agree with the current scribed note, I made few changes to the note using Italic font Patient was seen at bedside, laying down comfortably Denied any chest pain Still in atrial fibrillation Discussed the management plan recommended Lexiscan stress test which will be sc heduled for tomorrow morning then will consider using class Ic antiarrhythmic medication Supervisory-Addendum Brief Supervisory Addendum Participated in pt care: history, MDM, physical Personally performed: exam, history, MDM Care discussed with: CHRISTINE REIS Jan 31, 2021 11:26 am STELLA LOPEZ MD Jan 31, 2021 7:03 pm
[2021-01-31 11:33] VITALS: BP 145/76
--- NOTE | 2021-01-31 15:26 | Progress Note ---
Subjective Subjective Date Seen by Provider: Jan 31, 2021 Time Seen by Provider: 15:23 Transferred to [facility]. Doing well on 10L oxygen- She is frustrated again with being in the hospital- appetite not good. Has pepsi, hot chocolate, water on her table. Review of Systems General: No Chills; Fatigue HEENT: No Dysphasia Pulmonary: Dyspnea; No Cough Cardiovascular: No: Chest Pain, Palpitations Gastrointestinal: No: Nausea, Abdominal Pain Genitourinary: No Dysuria Musculoskeletal: No: back pain Neurological: Weakness; No: Confusion All Other Systems Reviewed All Other Systems Reviewed: Yes Objective Exam Vital Signs Vital Signs Date Time Temp Pulse Resp B/P (MAP) Pulse Ox O2 Delivery O2 Flow Rate FiO2 01/31/21 11:33 36.3 85 20 145/76 (99) 92 High Flow N/C 10.00 01/31/21 11:14 90 High Flow N/C 10.00 01/31/21 09:00 90 22 131/81 (98) 97 High Flow N/C 10.00 01/31/21 08:00 90 29 145/81 (102) 93 High Flow N/C 10.00 01/31/21 08:00 90 High Flow N/C 10.00 01/31/21 07:49 36.8 01/31/21 07:20 93 High Flow N/C 10.00 01/31/21 07:00 87 21 143/82 (102) 92 High Flow N/C 10.00 01/31/21 06:49 81 01/31/21 06:00 71 25 137/81 (99) 98 High Flow N/C 10.00 01/31/21 05:00 71 21 136/79 (104) 98 High Flow N/C 10.00 01/31/21 04:00 92 High Flow N/C 10.00 01/31/21 04:00 81 25 129/75 (97) 98 High Flow N/C 10.00 01/31/21 03:00 87 23 128/74 (92) 92 High Flow N/C 10.00 01/31/21 02:22 94 High Flow N/C 6.00 01/31/21 02:00 78 26 142/78 (105) 92 High Flow N/C 10.00 01/31/21 01:00 85 01/31/21 01:00 85 22 138/80 (108) 95 High Flow N/C 10.00 01/31/21 00:00 90 24 137/76 (96) 97 High Flow N/C 10.00 01/30/21 23:59 92 High Flow N/C 10.00 01/30/21 23:00 93 14 124/82 (96) 91 High Flow N/C 10.00 01/30/21 22:00 114 26 118/90 (101) 99 High Flow N/C 10.00 01/30/21 21:58 95 High Flow N/C 8.00 01/30/21 21:00 112 21 126/81 (100) 95 High Flow N/C 10.00 01/30/21 20:26 High Flow N/C 10.00 01/30/21 20:00 94 High Flow N/C 10.00 01/30/21 20:00 101 25 117/78 (91) 97 High Flow N/C 9.00 01/30/21 19:00 110 01/30/21 19:00 110 36 114/97 (105) 98 High Flow N/C 9.00 01/30/21 18:16 91 High Flow N/C 10.00 01/30/21 18:00 113 34 116/82 (93) 82 High Flow N/C 9.00 01/30/21 17:00 106 24 129/90 (103) 97 High Flow N/C 9.00 01/30/21 16:00 93 High Flow N/C 10.00 01/30/21 16:00 90 29 130/104 (113) High Flow N/C 9.00 I & O 01/31/21 07:00 Intake Total 1475 ml Output Total 1050 ml Balance 425 ml General Appearance: No Apparent Distress, Thin Eyes: Bilateral Eye Normal Inspection, Bilateral Eye PERRL, Bilateral Eye EOMI HEENT: PERRL/EOMI, Normal ENT Inspection, Pharynx Normal Neck: Full Range of Motion, Non Tender, Supple Respiratory: Chest Non Tender, Lungs Clear, No Accessory Muscle Use, No Respiratory Distress, Crackles (IN BASES), Decreased Breath Sounds; No Other Cardiovascular: Regular Rate, Rhythm, No Edema, No Gallop, Normal Peripheral Pulses, Tachycardia Gastrointestinal: Normal Bowel Sounds, No Organomegaly, No Pulsatile Mass, Non Tender, Soft Rectal: Deferred Back: Normal Inspection, No CVA Tenderness, No Vertebral Tenderness Extremity: Normal Capillary Refill, Normal Inspection, Normal Range of Motion, Non Tender, No Calf Tenderness, No Pedal Edema, Pedal Edema Neurologic/Psychiatric: Alert, Oriented x3, No Motor/Sensory Deficits, 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, white sidewall tire 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 II-XII Norm as Tested Skin: Normal Color, Warm/Dry Lymphatic: No Adenopathy Results Lab Laboratory Tests 01/31/21 03:23: White Blood Count 8.3, Red Blood Count 3.60L, Hemoglobin 11.5, Hematocrit 36, Mean Corpuscular Volume 101H, Mean Corpuscular Hemoglobin 32, Mean Corpuscular Hemoglobin Concent 32, Red Cell Distribution Width 13.8, Platelet Count 175, Mean Platelet Volume 10.1, Immature Granulocyte % (Auto) 2, Neutrophils (%) (Auto) 94H, Lymphocytes (%) (Auto) 2L, Monocytes (%) (Auto) 2, Eosinophils (%) (Auto) 0, Basophils (%) (Auto) 0, Neutrophils # (Auto) 7.8, Lymphocytes # (Auto) 0.2L, Monocytes # (Auto) 0.2, Eosinophils # (Auto) 0.0, Basophils # (Auto) 0.0, Immature Granulocyte # (Auto) 0.2H, Sodium Level 141, Potassium Level 4.6, Chloride Level 102, Carbon Dioxide Level 27, Anion Gap 12, Blood Urea Nitrogen 16, Creatinine 0.56L, Estimat Glomerular Filtration Rate > 60, BUN/Creatinine Ratio 29, Glucose Level 171H, Calcium Level 8.6, Phosphorus Level 4.0, Magnesium Level 1.9 Microbiology 01/27/21 MRSA Screen - Final, Complete MRSA not isolated 01/26/21 Blood Culture - Final, Complete No growth Assessment/Plan Assessment/Plan Assessment and Plan 01/29/21- metoprolol changed to 12.5mg BID. Continue respiratory support. On eliquis. 01/30/21- metoprolol increased to 25mg BID by cardiology to help with the tachycardia. continue eliquis. Will continue open discussion with patient on her health including her prognosis and code status. She is further down in spirit today but does not want to start anything for depression. She feels with time she will get over the depressive state. 01/31/21- continue to monitor- will d/c her catheter as she is able to get to bedside commode. Continue current medication regimen. Try to decrease oxygen requirement. Will d/c cefepime. On antifungal to cover for oral thrush. -Dispo: condition guarded as this is a re-admit for COPD exacerbation/acute on chronic hypoxic respiratory failure. Problems: (1) Acute and chronic respiratory failure with hypoxia Assessment & Plan: due to COPD (2) Persistent atrial fibrillation (3) COPD exacerbation SLICK DE SANTIAGO MD Jan 31, 2021 15:26
[2021-01-31 16:00] VITALS: BP 154/76
[2021-01-31] MEDS ORDERED: REGADENOSON 0.4 MG/5 ML SYR (LEXISCAN) IV ONE (16:15)
[2021-01-31 20:00] VITALS: BP 125/73
[2021-01-31] MEDS: FAMOTIDINE 20 MG (PEPCID) TABLET PO SCH (21:39)
[2021-01-31] MEDS: VITAMIN D3 25 MCG (1,000 UNITS) TABLET PO SCH (21:39)
[2021-02-01] VITALS (10 sets, daily range): BP systolic 134–154; BP diastolic 74–88
[2021-02-01] MEDS: NYSTATIN ORAL SUSP 5 ML UDC PO SCH ×4 (00:07→17:16)
[2021-02-01] MEDS: methylPREDNISolone 125 MG (Solu-MEDROL) VIAL IVP SCH ×3 (00:08→11:18)
[2021-02-01] MEDS: RT-ALBUTEROL/IPRATROPIUM 3 ML (DUONEB) VIAL INH SCH ×4 (03:03→21:19)
[2021-02-01] MEDS: MAGNESIUM 1 GM/100 ML IVPB 100 ML IV SCH (06:13)
[2021-02-01] MEDS: POTASSIUM CL 10MEQ/50ML IVPB 50 ML IV SCH (06:13)
[2021-02-01] MEDS: KCL 20 MEQ TAB (K-DUR) PO SCH (06:13)
[2021-02-01] MEDS: CATHETER FLUSH 10 ML SYR IV SCH ×3 (06:13→20:47)
[2021-02-01 06:18] LABS: BASOPHILS % (AUTO) 0 % (0-10); EOSINOPHILS % (AUTO) 0 % (0-10); HEMATOCRIT 37 % (35-52); HEMOGLOBIN 11.6 g/dL (11.5-16.0); LYMPHOCYTES # (AUTO) 0.2 10^3/uL (1.0-4.0); LYMPHOCYTES % (AUTO) 3 % (12-44); MEAN CORPUSCULAR HEMOGLOBIN 32 pg (25-34); MEAN CORPUSCULAR HGB CONC 32 g/dL (32-36); MEAN CORPUSCULAR VOLUME 100 fL (80-99); MEAN PLATELET VOLUME 9.8 fL (9.0-12.2); MONOCYTES # (AUTO) 0.2 10^3/uL (0.0-1.0); MONOCYTES % (AUTO) 3 % (0-12); NEUTROPHILS # (AUTO) 6.7 10^3/uL (1.8-7.8); NEUTROPHILS % (AUTO) 89 % (42-75); PLATELET COUNT 196 10^3/uL (130-400); WHITE BLOOD COUNT 7.6 10^3/uL (4.3-11.0)
[2021-02-01 06:40] LABS: CHLORIDE 99 MMOL/L (98-107); SODIUM 138 MMOL/L (135-145)
[2021-02-01 06:41] LABS: CALCIUM 8.8 MG/DL (8.5-10.1)
[2021-02-01 06:42] LABS: GLUCOSE 130 MG/DL (70-105)
[2021-02-01 06:43] LABS: CARBON DIOXIDE 30 MMOL/L (21-32)
[2021-02-01 06:45] LABS: PHOSPHORUS 2.9 MG/DL (2.3-4.7)
[2021-02-01 06:46] LABS: BUN/CREATININE RATIO 31; CREATININE SERUM 0.55 MG/DL (0.60-1.30); GFR ESTIMATED > 60
[2021-02-01 06:48] LABS: MAGNESIUM 2.2 MG/DL (1.6-2.4)
[2021-02-01 06:57] LABS: LYMPHOCYTES % (MANUAL) 4 %; METAMYELOCYTES % 1 %; MONOCYTES % (MANUAL) 2 %; NEUTROPHILS % (MANUAL) 93 %; RBC MORPH NORMAL
[2021-02-01] MEDS: RT--FLUTICASONE/SALMETEROL 232-14 (AIRDUO RespiCLICK) IH SCH ×2 (07:04→21:16)
[2021-02-01] MEDS: UMECLIDINIUM BROMIDE (INCRUSE ELLIPTA) 7'S IH SCH (07:04)
[2021-02-01] MEDS: CATHETER FLUSH 10 ML SYR IV PRN (07:31)
[2021-02-01] MEDS ORDERED: REGADENOSON 0.4 MG/5 ML SYR (LEXISCAN) IV ONE (08:03)
[2021-02-01] MEDS: APIXABAN 5 MG (ELIQUIS) TABLET PO SCH ×2 (09:37→20:46)
[2021-02-01] MEDS: meTOprolol TARTRATE 25 MG (LOPRESSOR) TABLET PO SCH ×2 (09:37→20:46)
[2021-02-01] MEDS: LACTATED RINGERS 1,000 ML IV SCH (11:18)
--- NOTE | 2021-02-01 12:54 | Cardiology Stress Test Report ---
Stress Test Report Date of Procedure/Referring: Date of Procedure: Feb 01, 2021 PCP Ana Laura Lewis MD Admitting Physician Obed Zelaya MD Indications: a fib Baseline Heart Rate: 86 Baseline Blood Pressure: Blood Pressure Systolic: 148 Blood Pressure Diastolic: 75 Baseline Vitals Vital Signs Date Time Temp Pulse Resp B/P (MAP) Pulse Ox O2 Delivery O2 Flow Rate FiO2 01/26/21 10:25 37.1 102 32 117/76 (90) 92 Nasal Cannula 5.00 01/26/21 16:31 32 Baseline EKG: Baseline EKG: NSR Summary After explaining the procedure to the patient, she signed a consent and then brought to the stress nuclear laboratory. Patient received 0.4 mg Lexiscan for stress test, ECG, heart rate and blood pressure were monitored continuously. Resting and stress dose of radio tracer were injected, imaging was acquired and reviewed in short axis, horizontal long axis and vertical long axis views. TID: 0.97 SSS: 8 SDS: 8 EF: 90 1. Patient tolerated Lexiscan well 2. Baseline sinus rhythm noted during test 3. Good radiotracer uptake with mild decreased uptake at the inferoapical segment with subtle reversibility, no significant ischemia or infarction on SPE CT images 4. Normal left ventricular size, EF 90% STELLA LOPEZ MD Feb 01, 2021 12:54
--- NOTE | 2021-02-01 14:14 | Physical Therapy Evaluation ---
PT Evaluation-General Medical Diagnosis Admission Date Jan 26, 2021 at 13:45 Medical Diagnosis: COPD exacerbation Onset Date: Jan 26, 2021 Therapy Diagnosis Therapy Diagnosis: debility/weakness Height/Weight Height (Feet): 5 Height (Inches): 2.00 Weight (Pounds): 100 Weight (Ounces): 3.0 Precautions Precautions/Isolations: Fall Prevention, Standard Precautions Referral Physician: Garcia Reason for Referral: Evaluation/Treatment Medical History Pertinent Medical History: Atrial Fib, COPD Current History ER secondary to fever and increase in O2 demand Reviewed History: Yes Social History Home: Single Level Current Living Status: Alone Entry Into Home: Stairs With Railing PT Steps Into Home: 5 Prior Prior Level of Function SCALE: Activities may be completed with or without assistive devices. 7-Gfhgyxfcij-epeelql completes the activity by him/herself with no assistance from a helper. 5-Set-up or Clean-up Assistance-helper sets up or cleans up; patient completes activity. [place] assists only prior to or following the activity. 4-Supervision or Touching Assistance-helper provides verbal cues and/or touching/steadying and/or contact guard assistance as patient completes activity. Assistance may be provided throughout the activity or intermittently. 3-Partial/Moderate Assistance-helper does LESS THAN HALF the effort. [place] lifts, holds or supports trunk or limbs, but provides less than half the effort. 2-Substantial/Maximal Assistance-helper does MORE THAN HALF the effort. [place] l ifts or holds trunk or limbs and provides more than half the effort. 7-Faisljdun-daowbw does ALL the effort. Patient does none of the effort to complete the activity. Or, the assistance of 2 or more helpers is required for the patient to complete the activity. If activity was not attempted, code reason: 7-Patient Refused. 9-Not Applicable-not attempted and the patient did not perform the activity before the current illness, exacerbation or injury. 10-Not Attempted due to Environmental Limitations-(lack of equipment, weather restraints, etc.). 88-Not Attempted due to Medical Conditions or Safety Concerns. Bed Mobility: 5 Transfers (B,C,W/C): 5 Gait: 5 Stairs: 3 (family assist per patient report) Indoor Mobility (Ambulation): Independent Stairs: Needed Some Help Prior Devices Use: Walker PT Evaluation-Current Subjective Patient agrees to PT. Objective Patient Orientation: Normal For Age Attachments: Oxygen, Arriaga Catheter, IV ROM/Strength ROM Lower Extremities bilateral LE WFL Strength Lower Extremities 3/5 grossly bilateral LE Integumentary/Posture Integumentary refer to nursing notes Bladder Incontinence: Arriaga Cath Posture WFL Neuromuscular (Tone, Coordination, Reflexes) grossly intact Sensory Vision: Wears Glasses Hearing: Impaired Transfers Roll Left to Right (QC): 5 Sit to Lying (QC): 5 Lying to Sitting/Side of Bed(Q: 5 Sit to Stand (QC): 4 Chair/Jpc-pz-Iuhke Xfer(QC): 4 Gait Does the Patient Walk?: Yes Mode of Locomotion: Walk Anticipated Mode of Locomotion: Walk Walk 10 feet (QC): 4 (SBA) Walk 50 ft with 2 Turns(QC): 88 Gait Assistive Device: FWW Comments/Gait Description safe and functional with no deviation Balance Sitting Static: Normal Sitting Dynamic: Normal Standing Static: Good Standing Dynamic: Good Assessment/Needs 75 y.o. female,will be seen short term by skilled PT to address functional mobility and strength to ensure safe return to home with family support. Patient continues to have limited pulmonary function due to COPD. Rehab Potential: Guarded PT Short Term Goals Short Term Goals Time Frame: Feb 09, 2021 Roll Left & Right: 6 Sit to lyin Lying to sitting on side of be: 6 Sit to stand: 4 Chair/oft-fz-ffmbo transfer: 4 Walk 10 feet: 4 PT Plan Problem List Problem List: Activity Tolerance, Functional Strength, Safety, Gait, Transfer Treatment/Plan Treatment Plan: Continue Plan of Care Treatment Plan: Bed Mobility, Education, Functional Activity Ambrosio, Functional Strength, Gait, Safety, Therapeutic Exercise, Transfers Treatment Duration: Feb 09, 2021 Frequency: 6 times per week Estimated Hrs Per Day: .25 hour per day Patient and/or Family Agrees t: Yes Discharge Recommendations Therapy Discharge Recommendati: Home & Family Time/GCodes Time In: 1245 Time Out: 1300 Total Billed Treatment Time: 15 Total Billed Treatment 1 visit EVModC 15 min CAITLIN SAM PT Feb 01, 2021 14:14
--- NOTE | 2021-02-01 15:35 | Cardiology Progress Note ---
Subjective Date Seen by Provider: Feb 01, 2021 Time Seen by Provider: 15:35 Subjective/Events-last exam Patient was seen at bedside, feeling better, her heart rate is better. Review of Systems General: No Chills, No Night Sweats, No Fatigue, No Malaise, No Appetite, No Other HEENT: No Head Aches, No Visual Changes, No Eye Pain, No Ear Pain, No Dysphasia, No Sinus Congestion, No Post Nasal Drip, No Sore Throat, No Other Pulmonary: No Dyspnea, No Cough, No Pleuritic Chest Pain, No Other Cardiovascular: No: Chest Pain, Palpitations, Orthopnea, Paroxysmal Noc. Dyspnea, Edema, Lt Headedness, Other Objective-Cardiology Exam Last Set of Vital Signs Vital Signs 01/30/21 02/01/21 02/01/21 06:37 11:56 12:00 Temp 36.6 Pulse 70 Resp 22 B/P (MAP) 148/75 (99) Pulse Ox 94 O2 Delivery Nasal Cannula O2 Flow Rate 4.00 FiO2 35 Capillary Refill : Less Than 3 Seconds I&O Intake and Output 02/01/21 00:00 Intake Total 970 ml Output Total 810 ml Balance 160 ml Intake Oral 720 ml IV Total 250 ml Output Urine Total 810 ml # Bowel Movements 1 General: Alert, Oriented X3, Cooperative, No Acute Distress HEENT: Atraumatic, EOMI Neck: Supple, No JVD Lungs: Other (Diffusely decreased breath sounds with scattered wheezes bilaterally.) Heart: Normal S1, Normal S2, Other (irregularly irregular rhythm. 2/6 systolic ejection murmur. No rubs or gallops appreciated.) Abdomen: Normal Bowel Sounds, Soft Extremities: No Clubbing, No Cyanosis Skin: No Rashes Neuro: Normal Speech, Cranial Nerves 3-12 NL Psych/Mental Status: Mental Status NL, Mood NL Results Lab Laboratory Tests 02/01/21 06:00 A/P-Cardiology Admission Diagnosis AE COPD Persistent afib PVCs ETOH use Assessment/Plan Persistent atrial fibrillation, rate is better controlled, maintained on Eliquis, beta sean, diltiazem. Unable to tolerate Amiodarone on sotalol d/t severe COPD. Stress test was done today showing no significant ischemia or infarction, I will start flecainide 50 mg twice daily and evaluate tolerance and response COPD, acute exacerbation with acute respiratory failure, slowly improving. Alcoholism, patient educated on reduction of alcohol intake Palpitations with frequent PVCs, maintained on beta sean. History of left lobectomy STELLA LOPEZ MD Feb 01, 2021 3:35 pm
--- NOTE | 2021-02-01 15:48 | Progress Note ---
Subjective Subjective Date Seen by Provider: Feb 01, 2021 Time Seen by Provider: 12:30 Doing well, working with PT. on 4L oxygen. Review of Systems General: No Chills, No Night Sweats, No Fatigue, No Malaise, No Appetite, No Other HEENT: No Head Aches, No Visual Changes, No Eye Pain, No Ear Pain, No Dysphasia, No Sinus Congestion, No Post Nasal Drip, No Sore Throat, No Other Pulmonary: No Dyspnea, No Cough, No Pleuritic Chest Pain, No Other Cardiovascular: No: Chest Pain, Palpitations, Orthopnea, Paroxysmal Noc. Dyspnea, Edema, Lt Headedness, Other Gastrointestinal: No: Nausea, Abdominal Pain Genitourinary: No Dysuria Musculoskeletal: No: back pain Neurological: Weakness; No: Confusion All Other Systems Reviewed All Other Systems Reviewed: Yes Objective Exam Vital Signs Vital Signs Date Time Temp Pulse Resp B/P (MAP) Pulse Ox O2 Delivery O2 Flow Rate FiO2 02/01/21 12:00 36.6 70 22 148/75 (99) Nasal Cannula 4.00 02/01/21 11:56 36.6 70 22 148/75 (99) 94 High Flow N/C 02/01/21 10:14 35.7 107 94 02/01/21 09:03 107 20 134/77 (96) Nasal Cannula 3.50 02/01/21 09:00 90 High Flow N/C 4.00 02/01/21 08:08 91 16 145/88 (107) 97 Room Air 02/01/21 06:59 100 High Flow N/C 4.00 02/01/21 04:19 35.7 77 20 146/79 (101) 99 High Flow N/C 6.00 02/01/21 03:03 93 High Flow N/C 4.00 02/01/21 00:28 35.8 63 20 154/77 (102) 98 High Flow N/C 6.00 01/31/21 21:47 94 High Flow N/C 6.00 01/31/21 21:00 92 High Flow N/C 6.00 01/31/21 20:00 36.2 96 20 125/73 (90) 93 High Flow N/C 6.00 01/31/21 19:18 91 High Flow N/C 6.00 01/31/21 19:11 85 High Flow N/C 6.00 01/31/21 16:13 97 High Flow N/C 10.00 01/31/21 16:00 36.2 81 20 154/76 (102) 95 High Flow N/C 6.00 I & O 02/01/21 07:00 Intake Total 520 ml Output Total 675 ml Balance -155 ml General Appearance: No Apparent Distress, Thin Eyes: Bilateral Eye Normal Inspection, Bilateral Eye PERRL, Bilateral Eye EOMI HEENT: PERRL/EOMI, Normal ENT Inspection, Pharynx Normal Neck: Full Range of Motion, Non Tender, Supple Respiratory: Chest Non Tender, Lungs Clear, No Accessory Muscle Use, No Respiratory Distress, Crackles (IN BASES), Decreased Breath Sounds; No Other Cardiovascular: Regular Rate, Rhythm, No Edema, No Gallop, Normal Peripheral Pulses, Tachycardia Gastrointestinal: Normal Bowel Sounds, No Organomegaly, No Pulsatile Mass, Non Tender, Soft Rectal: Deferred Back: Normal Inspection, No CVA Tenderness, No Vertebral Tenderness Extremity: Normal Capillary Refill, Normal Inspection, Normal Range of Motion, Non Tender, No Calf Tenderness, No Pedal Edema, Pedal Edema Neurologic/Psychiatric: Alert, Oriented x3, No Motor/Sensory Deficits, 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, 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 Norm as Tested Skin: Normal Color, Warm/Dry Lymphatic: No Adenopathy Results Lab Laboratory Tests 02/01/21 06:00: White Blood Count 7.6, Red Blood Count 3.65L, Hemoglobin 11.6, Hematocrit 37, Mean Corpuscular Volume 100H, Mean Corpuscular Hemoglobin 32, Mean Corpuscular Hemoglobin Concent 32, Red Cell Distribution Width 13.5, Platelet Count 196, Mean Platelet Volume 9.8, Immature Granulocyte % (Auto) 5, Neutrophils (%) (Auto) 89H, Lymphocytes (%) (Auto) 3L, Monocytes (%) (Auto) 3, Eosinophils (%) (Auto) 0, Basophils (%) (Auto) 0, Neutrophils # (Auto) 6.7, Lymphocytes # (Auto) 0.2L, Monocytes # (Auto) 0.2, Eosinophils # (Auto) 0.0, Basophils # (Auto) 0.0, Immature Granulocyte # (Auto) 0.4H, Neutrophils % (Manual) 93, Lymphocytes % (Manual) 4, Monocytes % (Manual) 2, Metamyelocytes % 1, Blood Morphology Comment NORMAL, Sodium Level 138, Potassium Level 5.0, Chloride Level 99, Carbon Dioxide Level 30, Anion Gap 9, Blood Urea Nitrogen 17, Creatinine 0.55L, Estimat Glomerular Filtration Rate > 60, BUN/Creatinine Ratio 31, Glucose Level 130H, Calcium Level 8.8, Phosphorus Level 2.9, Magnesium Level 2.2 Microbiology 01/27/21 MRSA Screen - Final, Complete MRSA not isolated 01/26/21 Blood Culture - Final, Complete No growth Assessment/Plan Assessment/Plan Assessment and Plan 01/29/21- metoprolol changed to 12.5mg BID. Continue respiratory support. On eliquis. 01/30/21- metoprolol increased to 25mg BID by cardiology to help with the tachycardia. continue eliquis. Will continue open discussion with patient on her health including her prognosis and code status. She is further down in spirit today but does not want to start anything for depression. She feels with time she will get over the depressive state. 01/31/21- continue to monitor- will d/c her catheter as she is able to get to bedside commode. Continue current medication regimen. Try to decrease oxygen requirement. Will d/c cefepime. On antifungal to cover for oral thrush. 02/01/21- continue with PT- stress test today- started on flecainide. Cons ider discharge to home 02/02/21 if no new issues arise. -Dispo: condition guarded as this is a re-admit for COPD exacerbation/acute on chronic hypoxic respiratory failure. Problems: (1) Acute and chronic respiratory failure with hypoxia Assessment & Plan: due to COPD (2) Persistent atrial fibrillation (3) COPD exacerbation SLICK DE SANTIAGO MD Feb 01, 2021 15:48
[2021-02-01] MEDS: VITAMIN D3 25 MCG (1,000 UNITS) TABLET PO SCH (20:45)
[2021-02-01] MEDS: FAMOTIDINE 20 MG (PEPCID) TABLET PO SCH (20:46)
[2021-02-01] MEDS: FLECAINIDE 100 MG (TAMBOCOR) TAB PO SCH (20:46)
[2021-02-02 00:24] VITALS: BP 155/80
[2021-02-02] MEDS: NYSTATIN ORAL SUSP 5 ML UDC PO SCH ×3 (00:24→12:31)
[2021-02-02] MEDS: RT-ALBUTEROL/IPRATROPIUM 3 ML (DUONEB) VIAL INH SCH ×2 (02:38→08:01)
[2021-02-02 04:23] VITALS: BP 144/79
[2021-02-02] MEDS: CATHETER FLUSH 10 ML SYR IV SCH (05:09)
[2021-02-02 06:01] LABS: BASOPHILS % (AUTO) 1 % (0-10); EOSINOPHILS % (AUTO) 0 % (0-10); HEMATOCRIT 38 % (35-52); HEMOGLOBIN 12.1 g/dL (11.5-16.0); LYMPHOCYTES # (AUTO) 0.5 10^3/uL (1.0-4.0); LYMPHOCYTES % (AUTO) 8 % (12-44); MEAN CORPUSCULAR HEMOGLOBIN 32 pg (25-34); MEAN CORPUSCULAR HGB CONC 32 g/dL (32-36); MEAN CORPUSCULAR VOLUME 99 fL (80-99); MEAN PLATELET VOLUME 9.7 fL (9.0-12.2); MONOCYTES # (AUTO) 0.5 10^3/uL (0.0-1.0); MONOCYTES % (AUTO) 8 % (0-12); NEUTROPHILS # (AUTO) 4.5 10^3/uL (1.8-7.8); NEUTROPHILS % (AUTO) 74 % (42-75); PLATELET COUNT 205 10^3/uL (130-400); WHITE BLOOD COUNT 6.1 10^3/uL (4.3-11.0)
[2021-02-02 06:22] LABS: CHLORIDE 97 MMOL/L (98-107); POTASSIUM 4.5 MMOL/L (3.6-5.0); SODIUM 137 MMOL/L (135-145)
[2021-02-02 06:23] LABS: CALCIUM 8.9 MG/DL (8.5-10.1)
[2021-02-02 06:24] LABS: GLUCOSE 102 MG/DL (70-105)
[2021-02-02 06:26] LABS: CARBON DIOXIDE 32 MMOL/L (21-32)
[2021-02-02] MEDS: POTASSIUM CL 10MEQ/50ML IVPB 50 ML IV SCH (06:27)
[2021-02-02] MEDS: KCL 20 MEQ TAB (K-DUR) PO SCH (06:27)
[2021-02-02 06:28] LABS: CREATININE SERUM 0.51 MG/DL (0.60-1.30); GFR ESTIMATED > 60; PHOSPHORUS 2.7 MG/DL (2.3-4.7)
[2021-02-02 06:29] LABS: BUN/CREATININE RATIO 31
[2021-02-02 06:30] LABS: MAGNESIUM 2.1 MG/DL (1.6-2.4)
[2021-02-02] MEDS: MAGNESIUM 1 GM/100 ML IVPB 100 ML IV SCH (06:39)
[2021-02-02 07:15] VITALS: BP 169/84
[2021-02-02] MEDS: RT--FLUTICASONE/SALMETEROL 232-14 (AIRDUO RespiCLICK) IH SCH (07:55)
[2021-02-02] MEDS: UMECLIDINIUM BROMIDE (INCRUSE ELLIPTA) 7'S IH SCH (08:01)
[2021-02-02] MEDS: FLECAINIDE 100 MG (TAMBOCOR) TAB PO SCH (09:11)
[2021-02-02] MEDS: meTOprolol TARTRATE 25 MG (LOPRESSOR) TABLET PO SCH (09:11)
[2021-02-02] MEDS: APIXABAN 5 MG (ELIQUIS) TABLET PO SCH (09:11)
--- NOTE | 2021-02-02 09:40 | Physical Therapy Daily Note ---
PT Daily Note-Current Subjective Patient agrees to PT. No c/o. Mental Status Patient Orientation: Normal For Age Attachments: Oxygen, [place] Catheter Transfers SCALE: Activities may be completed with or without assistive devices. 4-Mntccaodqr-ikwxemu completes the activity by him/herself with no assistance from a helper. 5-Set-up or Clean-up Assistance-helper sets up or cleans up; patient completes activity. [place] assists only prior to or following the activity. 4-Supervision or Touching Assistance-helper provides verbal cues and/or touching/steadying and/or contact guard assistance as patient completes activity. Assistance may be provided throughout the activity or intermittently. 3-Partial/Moderate Assistance-helper does LESS THAN HALF the effort. [place] lifts, holds or supports trunk or limbs, but provides less than half the effort. 2-Substantial/Maximal Assistance-helper does MORE THAN HALF the effort. [place] lifts or holds trunk or limbs and provides more than half the effort. 1-[place] does ALL the effort. Patient does none of the effort to complete the activity. Or, the assistance of 2 or more helpers is required for the patient to complete the activity. If activity was not attempted, code reason: 7-Patient Refused. 9-Not Applicable-not attempted and the patient did not perform the activity before the current illness, exacerbation or injury. 10-Not Attempted due to Environmental Limitations-(lack of equipment, weather restraints, etc.). 88-Not Attempted due to Medical Conditions or Safety Concerns. Lying to Sitting/Side of Bed(Q: 6 Sit to Stand (QC): 6 Chair/Wns-pi-Ahfth Xfer(QC): 6 Gait Training Does the Patient Walk?: Yes Distance: 10' x 2 Walk 10 feet (QC): 6 Gait Assistive Device: FWW safe and functional Exercises Seated Therapy Exercises: Ankle pumps, Long arc quads Seated Reps: 15 Standing: Marching Standing Reps: 15 Assessment Patient continues to display SOA on 4L O2 with activity due to COPD. Physician in to assess patient and patient will dismiss to home on this date per physician. PT Short Term Goals Short Term Goals Time Frame: Feb 09, 2021 Roll Left & Right: 6 Sit to lyin Lying to sitting on side of be: 6 Sit to stand: 4 Chair/mqy-om-yjtgo transfer: 4 Walk 10 feet: 4 PT Plan Treatment/Plan Treatment Plan: Discontinue PT Treatment Plan: Bed Mobility, Education, Functional Activity Ambrosio, Functional Strength, Gait, Safety, Therapeutic Exercise, Transfers Treatment Duration: Feb 09, 2021 Frequency: 6 times per week Estimated Hrs Per Day: .25 hour per day Patient and/or Family Agrees t: Yes Time/GCodes Time In: 839 Time Out: 849 Total Billed Treatment Time: 10 Total Billed Treatment 1 visit FA 10 min CAITLIN SAM PT Feb 02, 2021 09:40
[2021-02-02] MEDS ORDERED: APIX5TAB PO (11:34)
[2021-02-02] MEDS ORDERED: FLEC100T PO (11:34)
[2021-02-02] MEDS ORDERED: METO-333 PO (11:34)
[2021-02-02] MEDS ORDERED: DEXA4TAB PO (11:34)
--- NOTE | 2021-02-02 11:36 | Discharge Summary ---
Discharge Summary Hospital Course Problems/Dx: (1) Acute and chronic respiratory failure with hypoxia (2) Persistent atrial fibrillation Status: Chronic (3) COPD exacerbation Status: Acute Hospital Course Date of Admission: Jan 26, 2021 at 13:45 Admission Diagnosis : Problems: (1) Acute and chronic respiratory failure with hypoxia Assessment & Plan: due to COPD (2) Persistent atrial fibrillation (3) COPD exacerbation Family Physician/Provider: Obed De Santiago MD Date of Discharge: 02/02/21 Discharge Diagnosis: Problems: (1) Acute and chronic respiratory failure with hypoxia Assessment & Plan: due to COPD (2) Persistent atrial fibrillation (3) COPD exacerbation Hospital Course PT IS A 75 Y/O FEMALE WHO IS A CLINIC PATIENT OF DR. 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 SHE PRESENTED TO THE HOSPITAL FOR ACUTE WORSENING OF CHRONIC SHORTNESS OF BREATH. SHE WAS RECENTLY HOSPITALIZED - DISCHARGED ON 01/15/2021 ON LEVAQUIN AND TAPERED DOWN ON HER STEROIDS. SHE REPORTS THAT ABOUT 3 DAYS AGO SHE STARTED TO FEEL POORLY WITH INCREASED WEAKNESS, INCREASED FATIGUE, COUGHING, SHORTNESS OF BREATH WORSENING. 01/29/21- metoprolol changed to 12.5mg BID. Continue respiratory support. On eliquis. 01/30/21- metoprolol increased to 25mg BID by cardiology to help with the tachycardia. continue eliquis. Will continue open discussion with patient on her health including her prognosis and code status. She is further down in spirit today but does not want to start anything for depression. She feels with time she will get over the depressive state. 01/31/21- continue to monitor- will d/c her catheter as she is able to get to bedside commode. Continue current medication regimen. Try to decrease oxygen requirement. Will d/c cefepime. On antifungal to cover for oral thrush. 02/01/21- continue with PT- stress test today- started on flecainide. Consider discharge to home 02/02/21 if no new issues arise. -Dispo: condition guarded as this is a re-admit for COPD exacerbation/acute on chronic hypoxic respiratory failure. She did improve though. She was deemed stable for discharge 02/02/21. See discharge instructions. -will continue steroids daily to keep her COPD exacerbation- shared decision making utilized with myself, patient and daughter- though steroids fci are not ideal they will likely help with keeping her out of the hospital. Patient aware that she may not recover the next time she has an exacerbation. Labs and Pending Lab Test: Laboratory Tests 02/02/21 05:20: White Blood Count 6.1, Red Blood Count 3.80, Hemoglobin 12.1, Hematocrit 38, Mean Corpuscular Volume 99, Mean Corpuscular Hemoglobin 32, Mean Corpuscular Hemoglobin Concent 32, Red Cell Distribution Width 13.4, Platelet Count 205, Mean Platelet Volume 9.7, Immature Granulocyte % (Auto) 10, Neutrophils (%) (Auto) 74, Lymphocytes (%) (Auto) 8L, Monocytes (%) (Auto) 8, Eosinophils (%) (Auto) 0, Basophils (%) (Auto) 1, Neutrophils # (Auto) 4.5, Lymphocytes # (Auto) 0.5L, Monocytes # (Auto) 0.5, Eosinophils # (Auto) 0.0, Basophils # (Auto) 0.0, Immature Granulocyte # (Auto) 0.6H, Sodium Level 137, Potassium Level 4.5, Chloride Level 97L, Carbon Dioxide Level 32, Anion Gap 8, Blood Urea Nitrogen 16, Creatinine 0.51L, Estimat Glomerular Filtration Rate > 60, BUN/Creatinine Ratio 31, Glucose Level 102, Calcium Level 8.9, Phosphorus Level 2.7, Magnesium Level 2.1 Microbiology 01/27/21 MRSA Screen - Final, Complete MRSA not isolated 01/26/21 Blood Culture - Final, Complete No growth Home Meds Active Dexamethasone 4 Mg Tablet 4 Mg PO DAILY Metoprolol Tartrate 25 Mg Tablet 25 Mg PO BID Flecainide Acetate 100 Mg Tablet 50 Mg PO BID Eliquis (Apixaban) 5 Mg Tablet 5 Mg PO BID Reported Aspirin EC (Aspirin) 325 Mg Tablet.dr 325 Mg PO HS Metoprolol Tartrate 25 Mg Tablet 12.5 Mg PO 1800 TAKES OF A 25MG Metoprolol Tartrate 25 Mg Tablet 6.25 Mg PO DAILY TAKES OF A 25MG TAB Alprazolam 0.5 Mg Tablet 0.5 Mg PO BID PRN Vitamin D3 (Cholecalciferol (Vitamin D3)) 50 Mcg Capsule 50 Mcg PO HS Albuterol Sulfate 2.5 Mg/0.5 Ml Vial.neb 2.5 Mg INH Q6H PRN Incruse Ellipta (Umeclidinium [place]) 62.5 Mcg Blst.w.dev 1 Puff INH DAILY Breo Ellipta 200-25 Mcg INH (Fluticasone/Vilanterol) 1 Each Blst.w.dev 1 Puff INH DAILY Ventolin Hfa (Albuterol Sulfate) 18 Gm Hfa.aer.ad 2 Puff INH Q4H PRN Assessment/Pt Instructions Continue medications as prescribed on your discharge paperwork. Follow up at [facility] in 1-2 weeks[address] Follow up with Dr. Savage Discharge Planning: >30 minutes discharge planning Discharge Instructions Discharge Diet: Regular Diet Activity as Tolerated: Yes Discharge Physical Examination Vital Signs Vital Signs Date Time Temp Pulse Resp B/P (MAP) Pulse Ox O2 Delivery O2 Flow Rate FiO2 02/02/21 09:00 High Flow N/C 3.50 02/02/21 08:02 93 02/02/21 07:15 36.3 65 20 169/84 (112) 01/30/21 06:37 35 General Appearance: No Apparent Distress, WD/WN HEENT: PERRL/EOMI Respiratory: Lungs Clear, Normal Breath Sounds Cardiovascular: Regular Rate, Rhythm Gastrointestinal: Non Tender, Soft Extremity: Non Tender Skin: Warm/Dry Neurologic/Psychiatric: Alert, Oriented x3 Allergies: Coded Allergies: No Known Drug Allergies (Verified , 04/05/15) Discharge Summary Date of Admission Jan 26, 2021 at 13:45 Date of Discharge Discharge Diagnosis (1) Acute and chronic respiratory failure with hypoxia Assessment & Plan: due to COPD (2) Persistent atrial fibrillation Status: Chronic (3) COPD exacerbation Status: Acute OBED DE SANTIAGO MD Feb 02, 2021 11:36
[2021-02-02 11:57] VITALS: BP 125/76
[2021-02-02] MEDS: LACTATED RINGERS 1,000 ML IV SCH (12:31)
--- NOTE | 2021-02-02 13:09 | Cardiology Progress Note ---
Subjective Date Seen by Provider: Feb 02, 2021 Time Seen by Provider: 13:08 Subjective/Events-last exam Patient was seen at bedside sitting comfortably, still having some wheezing but overall feeling better Review of Systems General: No Chills, No Night Sweats, No Fatigue, No Malaise, No Appetite, No Other HEENT: No Head Aches, No Visual Changes, No Eye Pain, No Ear Pain, No Dysphasia, No Sinus Congestion, No Post Nasal Drip, No Sore Throat, No Other Pulmonary: Dyspnea; No Cough, No Pleuritic Chest Pain, No Other Cardiovascular: No: Chest Pain, Palpitations, Orthopnea, Paroxysmal Noc. Dyspnea, Edema, Lt Headedness, Other Objective-Cardiology Exam Last Set of Vital Signs Vital Signs 01/30/21 02/02/21 06:37 11:57 Temp 36.5 Pulse 46 Resp 18 B/P (MAP) 125/76 (92) Pulse Ox 91 O2 Delivery High Flow N/C O2 Flow Rate 4.00 FiO2 35 Capillary Refill : Less Than 3 Seconds I&O Intake and Output 02/02/21 00:00 Intake Total 470 ml Output Total 1150 ml Balance -680 ml Intake Oral 470 ml Output Urine Total 1150 ml General: Alert, Oriented X3, Cooperative, No Acute Distress HEENT: Atraumatic, EOMI Neck: Supple, No JVD Lungs: Other (Diffusely decreased breath sounds with scattered wheezes bilaterally.) Heart: Normal S1, Normal S2, Other (irregularly irregular rhythm. 2/6 systolic ejection murmur. No rubs or gallops appreciated.) Abdomen: Normal Bowel Sounds, Soft Extremities: No Clubbing, No Cyanosis Skin: No Rashes Neuro: Normal Speech, Cranial Nerves 3-12 NL Psych/Mental Status: Mental Status NL, Mood NL Results Lab Laboratory Tests 02/02/21 05:20 A/P-Cardiology Admission Diagnosis AE COPD Persistent afib PVCs ETOH use Assessment/Plan Persistent atrial fibrillation, rate is better controlled, maintained on Eliquis, beta sean, diltiazem. Unable to tolerate Amiodarone on sotalol d/t severe COPD. Stress test was done today showing no significant ischemia or infarction, started on flecainide and tolerating medication well. Continue to monitor COPD, acute exacerbation with acute respiratory failure, slowly improving. Alcoholism, patient educated on reduction of alcohol intake Palpitations with frequent PVCs, maintained on beta sean. History of left lobectomy Okay for discharge from cardiology standpoint and follow-up with my office in 1 week STELLA LOPEZ MD Feb 02, 2021 1:09 pm
--- NOTE | 2021-02-05 09:18 | Physician Query Clarification ---
PQ-Uncertain Diagnosis Admission/Discharge Admission Date: Jan 26, 2021 at 13:45 Discharge Date: Feb 02, 2021 at 13:20 Dr. De Santiago, The medical record reflects the following clinical scenario: History/Risk Factors: emphysema, chronic persistent atrial fibrillation, discharged 11 days prior to this admission for pneumonia Clinical Findings: CT chest - RLL consolidation which represents pneumonia, SOB, T 100.3, respiratory distress Treatment: IV Cefepime, IV Vancomycin, PO Zithromax, Albuterol txm't Question: Is pneumonia a clinically valid diagnosis? Pneumonia was documented in the H&P and 01/[address] Lewis and 01/[address] Moore says pneumonia ? presumed with no further documentation in the medical record. Please document a response in Progress Note or Discharge Summary. 1. Yes, clinically valid, condition resolved. 2. No, condition ruled out. 3. Other, with explanation of clinical findings. 4. Undetermined, no explanation for clinical findings. PHYSICIAN RESPONSE Diagnosis clinically valid: Yes, Conditon resolved Please remember a lack of response to the above will prompt a phone page by CDI/Coding staff. In responding to this query, please exercise your independent professional judgment. The purpose of this communication is to more accurately reflect the complexity of your patients condition. The fact that a question is asked does not imply that any particular answer is desired or expected. Thank you for your timely response to this clarification. Requestors name: Rocio THIS PHYSICIAN QUERY FORM IS A PERMANENT PART OF THE MEDICAL RECORD ROCIO GUZMÁN Feb 05, 2021 09:18 SLICK DE SANTIAGO MD Feb 09, 2021 15:17
== END 2021-02-02 13:20 | disposition home or self-care (01) | DRG 193 ==
LOC: EDUNIT# 10:20 → ER 10:24 → 4TH 13:45 → ICU 01-27 21:40 → 4TH 01-31 12:28
PROVIDERS: ADMIT Family Medicine; ATTEND Family Medicine
DX: J18.9 Pneumonia, unspecified organism (principal); J96.21 Acute and chronic respiratory failure with hypoxia; E43 Unspecified severe protein-calorie malnutrition; I48.19 Other persistent atrial fibrillation; Z68.1 Body mass index [BMI] 19.9 or less, adult; B37.0 Candidal stomatitis; J43.9 Emphysema, unspecified; I49.3 Ventricular premature depolarization; R34 Anuria and oliguria; E86.1 Hypovolemia; F10.20 Alcohol dependence, uncomplicated; Z79.01 Long term (current) use of anticoagulants; Z91.14 Patient's other noncompliance with medication regimen; Z87.891 Personal history of nicotine dependence; Z90.2 Acquired absence of lung [part of]; Z79.82 Long term (current) use of aspirin
CPT/HCPCS: 36415; 71045; 71046; 71275; 78452; 80048; 80053; 83605; 83735; 84100; 85007; 85025; 85027; 87040; 87070; 87081; 87205; 93005; 93017; 94640; 94660; 94664; 94760; 96361; 96365; 96366; 96375